=== PATIENT | male | born 1935 | race Two or more races ===

== ENCOUNTER 2021-09-22 17:40 | Inpatient (IN) | payer OTHER ==
[~2021-09-22] VITALS: Ht 175.3 cm; Wt 76.8 kg
[2021-09-22] VITALS (7 sets, daily range): BP systolic 64–140; BP diastolic 34–61
[2021-09-22] MEDS ORDERED: ATROPINE 0.5 MG/5 ML DISP.SYRINGE. IV PRN (18:00)
[2021-09-22] MEDS ORDERED: IV NORMAL SALINE 500ML BAG 500 ML IV PRN (18:00)
[2021-09-22] MEDS ORDERED: PROPOFOL 100 ML IV PRN ×2 (18:00→18:15)
[2021-09-22] MEDS ORDERED: LIDOCAINE 2%/EPI 1:100,000 20 ML VIAL. IJ ONE (18:15)
[2021-09-22] MEDS ORDERED: ceFAZolin SODIUM IV Push 1 GM VIAL. IVP ONE ×2 (18:15→18:53)
[2021-09-22] MEDS ORDERED: MIDAZOLAM HCL/PF 2 MG/2 ML VIAL. IV ONE (18:15)
[2021-09-22] MEDS ORDERED: ONDANSETRON PF 4 MG/2 ML VIAL. IVP PRN (18:45)
[2021-09-22] MEDS ORDERED: PROMETHAZINE 12.5 MG SUPP.RECT. PR PRN (18:45)
[2021-09-22] MEDS ORDERED: BISACODYL 10 MG SUPP.RECT. PR PRN (18:45)
[2021-09-22] MEDS ORDERED: MIDAZOLAM HCL/PF 2 MG/2 ML VIAL. ONE (18:53)
[2021-09-22] MEDS ORDERED: LIDOCAINE 2%/EPI 1:100,000 20 ML VIAL. ONE (18:53)
--- NOTE | 2021-09-22 18:59 | PDOC1 ---
History and Physical Date of Admission Date of Admission DATE: 09/22/21 TIME: 18:43 Identification/Chief Complaint Chief Complaint Respiratory arrest Source Source: Caregiver, Chart review History of Present Illness History of Present Illness Mr Cerda is an 86-year-old male with PMHx HTN, HLD s/p PPM who presented to [facility] in [place] via EMS after a PEA cardiac arrest. Per his son, he was at home and in the presence of son and son-in-law when he was observed actively choking and subsequently falling on the floor with significant amount of emesis that was nonbloody and nonbilious in nature. Son reports vomit with recently ingested food and laying his father on his side and cleaning out his mouth while son-in-law called EMS. On EMS arrival ~3 minutes later, patient was unresponsive and cyanotic and they intubated. En-route patient was found to be pulseless in PEA and appropriate ACLS measures were followed with application of Howard device for chest compressions, and per report had a total of x2 epinephrine administered via left tibial IO. After approximately 5 minutes ROSC was obtained. In ED was noted unresponsive with pinpoint pupils and GCS 3 with no purposeful movements. Per EMS report and son the patient takes Plavix, lisinopril, rosuvastatin and citalopram at home. He has a pacemaker per son, which was placed in [place] over 10 years ago, and the son says he follows at [facility], doesn't know about pacer follow up. Per son he fell 4 days prior and [facility]. Family notes he has been more weak than usual over past 72 hours, no travel or sick contacts. Is fully vaccinated against COVID 19. EKG appeared with third-degree heart block at 42 bpm, left axis deviation, T wave inversion noted in lead I, III, V2-6, no STEMI Vitals obtained concerning for marked bradycardia and no respiratory effort Labs with WBC 9.1, Hb 11.4, platelets 128, ABG 7.2 7/459 on 100% FiO2, rapid COVID-19 negative, NA 137, K4.2, BUN 50, CR 2, glucose 247, lactic acid 8.6, calcium 8.6, bilirubin 0.6, AST 131, ALT 157, alkaline phosphatase 90, ammonia 25, albumin 3, troponin 0.134, INR 1.1, urinalysis bland. CT head and neck with no acute abnormalities. CT chest with bibasilar infiltrates and NGT and ETT in good positioning. instrumental teacher concerning for third-degree heart block, with rate in the 20s, therefore 1 mg epinephrine administered with minimal improvement in HR, then 1 mg atropine without significant improvement, then dopamine gtt without sustained improvement. 3 L IV fluid administered and unasyn for aspiration pneumonitis. Ultimately was responsive to transcutaneous pacing and after discussion with cardiology he was transferred to [facility] for further care. To labor relations supervisor prior to my assessment, had pacemaker generator replaced emergently. Seen in ICU. Discussed with son bedside. Past Medical History Cardiovascular: HTN, Hyperlipidemia Past Surgical History Past Surgical History: Pacemaker Family History Family History reviewed with family Family History: Family History Unknown Social History Smoke: No ALCOHOL: none Drugs: None Current Medications Current Medications Current Medications Fentanyl Citrate 30 ml @ 2.5 mls/hr CONT PRN IV SEE PROTOCOL; Start 09/22/21 at 18:00 Midazolam HCl 100 ml @ 1 mls/hr CONT PRN IV SEE PROTOCOL; Start 09/22/21 at 18:00 Propofol 100 ml @ 2.244 mls/ hr CONT PRN IV PER PROTOCOL Last administered on 09/22/21at 17:39; Start 09/22/21 at 18:00 Sodium Chloride 500 ml @ 500 mls/hr 1X PRN PRN IV SEE COMMENTS; Start 09/22/21 at 18:00 Atropine Sulfate (ATROPINE 0.5mg SYRINGE) 0.5 mg PRN Q5MIN PRN IV SEE COMMENTS; Start 09/22/21 at 18:00 Famotidine (Pepcid Vial) 20 mg BID IVP ; Start 09/22/21 at 21:00 Midazolam HCl (Versed) 2 mg 1X ONCE IV Last administered on 09/22/21at 18:15; Start 09/22/21 at 18:15; Stop 09/22/21 at 18:16; Status DC Lidocaine/ Epinephrine (LIDOCAINE 2%-EPI 1:100,000 multi-dose) 20 ml 1X ONCE IJ Last administered on 09/22/21at 18:17; Start 09/22/21 at 18:15; Stop 09/22/21 at 18:16; Status DC Cefazolin Sodium (Ancef) 1 gm 1X ONCE IVP Last administered on 09/22/21at 18:15; Start 09/22/21 at 18:15; Stop 09/22/21 at 18:16; Status DC Propofol 100 ml @ 2.244 mls/ hr CONT PRN IV PER PROTOCOL; Start 09/22/21 at 18:15; Status UNV Ondansetron HCl (Zofran) 4 mg PRN Q4HRS PRN IVP NAUSEA/VOMITING; Start 09/22/21 at 18:45 Acetaminophen (Tylenol Supp) 650 mg PRN Q6HRS PRN NV MILD PAIN / TEMP > 100.3'F; Start 09/22/21 at 18:45 Bisacodyl (Dulcolax Supp) 10 mg PRN DAILY PRN NV CONSTIPATION; Start 09/22/21 at 18:45 Promethazine HCl (Phenergan Supp) 12.5 mg PRN Q6HRS PRN NV NAUSEA/VOMITING; Start 09/22/21 at 18:45 Allergies Allergies: Coded Allergies: aspirin (Verified Allergy, Intermediate, 09/22/21) ROS Review of System Unable to obtain due to patient unresponsive on ventilator Physical Exam Physical Exam Pupils 2 mm bilaterally and pinpoint with no reaction to light No gag reflex or reaction to painful stimuli Downgoing toes bilaterally HEENT: Mucous membr. moist/pink, Other (ETT and OGT in place, pupils pinpoint, occipital scalp bruising) Lungs: Other (Bilateral crackles) Heart: S1S2, no thrills, no rubs Abdomen: Normal bowel sounds, Soft, No tenderness, No hepatosplenomegaly, No masses Rectal Exam: hemorrhoids Extremities: No clubbing, No cyanosis, No edema, Normal pulses, No tenderness/swelling Skin: No rashes, No breakdown, No significant lesion Neuro: Other (Pupils 2 mm bilaterally and pinpoint with no reaction to light, GCS 3) Psych/Mental Status: Other (Unresponsive) Vitals Vitals Vital Signs Date Time Temp Pulse Resp B/P (MAP) Pulse Ox O2 Delivery O2 Flow Rate FiO2 09/22/21 17:[address] HEAD AND C-SPINE WO, CT THORAX WO The ventricles and sulci are prominent consistent with cerebral volume loss. Patchy ill-defined low attenuation areas in the subcortical and periventricular white matter bilaterally are consistent with microvascular disease. There is no evidence of acute intracranial hemorrhage, extra-axial collection, mass eff ect, midline shift, or acute territorial infarct. No lesion of the skull base or the calvarium is seen. The visualized paranasal sinuses, mastoid air cells, and orbits are normal in appearance. IMPRESSION: No evidence for acute intracranial abnormality. Volume loss and microvascular disease. CT OF THE CERVICAL SPINE WITHOUT CONTRAST Alignment is maintained without spondylolisthesis. Vertebral body heights are maintained without acute fracture. Mild multilevel degenerative changes are noted. No significant prevertebral soft tissue swelling is demonstrated. No severe osseous central canal stenosis is seen. Endotracheal and nasogastric tubes are identified. Impression: No evidence of acute cervical spine fracture or subluxation. Degenerative changes noted. Chest CT without intravenous contrast. Endotracheal tube terminates above the cristhian. Nasogastric tube terminates in the gastric antrum. There are patchy infiltrates and/or atelectasis in the lower lobes bilaterally. No appreciable pleural effusion or pneumothorax. The central airways are patent. There is no focal consolidation, pleural effusion or pneumothorax. The visualized thyroid gland is within normal limits. No lymphadenopathy is seen. The heart is enlarged without pericardial effusion. Coronary artery calcifications are noted. Aorta is normal in caliber with atherosclerotic calcifications. Degenerative changes are seen in the spine. No acute fracture. Images of the upper abdomen demonstrate gallstones and a nonobstructing left renal calculus. IMPRESSION: Bilateral lower lobe patchy infiltrates and/or atelectasis. Cardiomegaly. Coronary artery calcifications noted. VTE Prophylaxis Ordered VTE Prophylaxis Devices: No VTE Pharmacological Prophylaxi: Yes Assessment/Plan Assessment/Plan A/P: Acute hypoxic respiratory failure - likely due to aspiration pneumonia from vomiting likely from symptomatic 3rd degree heart block. Will cont vent, wean O2 as tolerated. Unasyn for aspiration pneumonia coverage. Consult pulmonology for vent management assistance PEA arrest - likely from above aspiration event, complicated by 3rd degree heart block. ROSC obtained Third degree heart block - s/p PPM generator change with apparent recovery of heart rate. Cont dopamine. ICU admission Abnormal chest CT - likely due to due to pneumonia Nausea and vomiting - likely from CHB, will treat for pneumonia, will rule out other infectious etiology. IV antiemetics Fall - second fall in a week. If neurologic recovery occurs needs gait testing, though likely this was related to cardiac event Closed head injury - posterior scalp abrasion, local wound care. Monitor neurologic function. Anemia - will check iron studies, likely of chronic disease Thrombocytopenia - unclear etiology, will trend EDWIN - likely vasomotor nephropathy from arrest. Family does not know of any history of CKD, will order [facility] records Lactic acidosis - likely due to hypoxia, will trend Transaminitis - likely related to shock liver, will monitor Elevated troponin - demand ischemia from 3rd degree heart block, likely, will trend out. HTN - will add back home meds as BP allows HLD - statin when taking PO FEN - NPO PPX - heparin, will hold tonight for closed head injury FULL CODE - discussed with son Dispo - ICU for above CC time 49 minutes Justifications for Admission Chest Pain Indications Respiratory Distress?: Yes Justification for admission: Patient's respiratory distress as indicated by (SOB/tachypnea/abnormal breathing pattern plus hypoxemia/AMS/other evidence of respiratory compromise such as pulmonary edema on chest x-ray) will need inpatient level of care. Serious Diagnosis?: Yes Justification for admission: Chest pain may be indicative of potentially serious diagnosis/diagnoses Please state condition(s) which will require inpatient level of care for further evaluation and management. Other Justification TERESA CASTRO MD Sep 22, 2021 18:59
--- NOTE | 2021-09-22 19:04 | CONS ---
DATE OF CONSULTATION: 09/22/2021 REASON FOR CONSULTATION: Complete heart block with malfunctioning pacemaker. CONSULTING PHYSICIAN: Dr. Randall and Dr. Galeana. HISTORY OF PRESENT ILLNESS: The patient is an 86-year-old man who presented to the ER after apparently being found down, choking on his food. Limited history at this time due to the patient's sedation and intubation status and unavailability of family members. Per report from the ER physicians, he was having some lightheadedness and dizziness over the last few days and ultimately today choked on his food and passed out. Upon arrival to the EMS folks, he was noted to have food in his mouth and they cleared his oropharynx and appropriately intubated him. Upon arrival to the ER at [facility], he had return of spontaneous circulation, but was noted to be in complete heart block despite having a pacemaker. His heart rates were in the 20s and it was felt that this pacemaker battery generator had probably run out. He was then emergently transferred to [facility] and was paced transcutaneously and was started on dopamine therapy with stabilized blood pressures. Upon arrival here, emergent pacemaker generator change was performed. PAST MEDICAL HISTORY: Currently unavailable, but presumably has a history of complete heart block status post dual chamber pacemaker in [place]. SOCIAL HISTORY: Currently unavailable. FAMILY HISTORY: Noncontributory. REVIEW OF SYSTEMS: Not able to be obtained as the patient is obtunded and on ventilator and sedated. ALLERGIES: Notable for aspirin. PHYSICAL EXAMINATION: VITAL SIGNS: Heart rate 69, blood pressure 86/36, pulse ox 100% on ventilator. GENERAL: He is sedated, but moving all extremities. HEAD AND NECK: Unremarkable. CARDIAC: Regular rate and rhythm without any obvious murmurs. LUNGS: Notable for decreased breath sounds at the bases. ABDOMEN: Soft, nontender, nondistended. EXTREMITIES: No clubbing, cyanosis or edema. SKIN: Multiple ecchymoses throughout his entire body. DIAGNOSTIC STUDIES: Reviewed. Troponin minimally elevated. Creatinine is elevated. Hemoglobin 11.4, platelets 128, creatinine 2.0. Troponin 0.134. INR 1.1. EKG demonstrates sinus rhythm with slow ventricular escape and complete heart block. IMPRESSION: 1. Pacemaker battery generator depletion with high-grade AV block and resultant cardiac arrest. 2. Acute kidney injury. 3. [id number] myocardial infarction, likely type 2. RECOMMENDATIONS: 1. The patient underwent successful emergent generator change in the lab manager without any complications. 2. Continue dopamine for blood pressure maintenance and obtain routine echocardiogram. 3. We will follow along closely and try to obtain further history from the family. Thank you for this consultation. XIOMARA DR: Mo TID: [id number]
--- NOTE | 2021-09-22 19:30 | NUR ---
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 Intubated with Dopamine, propofol and NS infusing. IO to left lower extremity removed. Propofol on hold for hypotension. Versed and fentanyl available and will infuse. Bejarano in place. Alicia called and advised family went home. VSS. Will titrate meds as needed and will continue to monitor.
[2021-09-22 20:46] LABS: BASE EXCESS ABG -6 mmol/L (-3-3); FIO2 ABG 100; HCO3 ABG 18 mmol/L (21-28); PCO2 ABG 30 mmHg (35-46); PO2 ABG 416 mmHg (65-108); SAT O2 ABG 99 % (92-99)
[2021-09-22] MEDS ORDERED: FAMOTIDINE 20 MG/2 ML VIAL IVP SCH (21:00)
[2021-09-22] MEDS ORDERED: fentaNYL PF VIAL 100 MCG/2 ML VIAL IVP PRN (21:30)
[2021-09-22] MEDS: AMPICILLIN/SULBACTAM 3 GM in IV NORMAL SALINE 100ML 100 ML IV SCH (21:58)
[2021-09-22] MEDS: MIDAZOLAM 100mg/100ml NS BAG 100 ML IV PRN (23:49)
[2021-09-23] VITALS (26 sets, daily range): BP systolic 67–135; BP diastolic 33–60
[2021-09-23] MEDS: AMPICILLIN/SULBACTAM 3 GM in IV NORMAL SALINE 100ML 100 ML IV SCH ×4 (00:32→17:43)
[2021-09-23] MEDS ORDERED: CHOL10004 PO (05:28)
[2021-09-23] MEDS ORDERED: AMLO-186 PO (05:28)
[2021-09-23] MEDS ORDERED: EZET10TA20 PO (05:28)
[2021-09-23] MEDS ORDERED: CARB15DR65 EACHEYE (05:28)
[2021-09-23] MEDS ORDERED: MEMA10TA PO (05:28)
[2021-09-23] MEDS ORDERED: DONE10TA7 PO (05:28)
[2021-09-23] MEDS ORDERED: CLOP75TA PO (05:28)
[2021-09-23] MEDS ORDERED: PANT40TA77 PO (05:28)
[2021-09-23] MEDS ORDERED: CRESTOR40 MG PO (05:28)
[2021-09-23] MEDS ORDERED: [UNRECOGNIZED DRUG - CODE] TP (05:28)
[2021-09-23] MEDS ORDERED: LISI-130 PO (05:28)
[2021-09-23] MEDS ORDERED: [UNRECOGNIZED DRUG - CODE] TP (05:28)
[2021-09-23] MEDS ORDERED: KETO45GE2 TP (05:28)
[2021-09-23] MEDS ORDERED: ISOS60TA55 PO (05:28)
[2021-09-23] MEDS ORDERED: LEVO50TA5 PO (05:28)
[2021-09-23] MEDS ORDERED: ATEN25TA PO (05:28)
[2021-09-23] MEDS ORDERED: CITA40TA12 PO (05:28)
[2021-09-23 05:52] LABS: BASO % 0 % (0-3); EOS % 0 % (0-3); HEMATOCRIT 32.4 % (39.0-53.0); HEMOGLOBIN 11.1 g/dL (13.0-17.5); LYMPH # 0.7 x10^3/uL (1.0-4.8); LYMPH % 7 % (24-48); MEAN CORPUSCULAR HEMOGLOBIN 32 pg (25-35); MEAN CORPUSCULAR HGB CONC 34 g/dL (31-37); MEAN CORPUSCULAR VOLUME 95 fL (79-100); MONO # 0.4 x10^3/uL (0.0-1.1); MONO % 4 % (0-9); NEUT # 8.8 x10^3/uL (1.8-7.7); NEUT % 89 % (31-73); PLATELET COUNT 126 x10^3/uL (140-400); RED BLOOD COUNT 3.43 x10^6/uL (4.30-5.70); RED CELL DISTRIBUTION WIDTH 14.8 % (11.5-14.5); WHITE BLOOD COUNT 9.9 x10^3/uL (4.0-11.0)
[2021-09-23 06:26] LABS: ALBUMIN 2.7 g/dL (3.4-5.0); ALBUMIN/GLOBULIN RATIO 0.8 (1.0-1.7); CREATININE 1.8 mg/dL (0.7-1.3); TOTAL BILIRUBIN 0.7 mg/dL (0.2-1.0)
[2021-09-23 08:11] LABS: BASE EXCESS ABG -1 mmol/L (-3-3); HCO3 ABG 19 mmol/L (21-28); PCO2 ABG 21 mmHg (35-46); PO2 ABG 172 mmHg (65-108); SAT O2 ABG 99 % (92-99)
[2021-09-23 08:14] LABS: FIO2 ABG 50% AC 26/500/5
--- NOTE | 2021-09-23 08:19 | PDOC ---
[employer] PROGRESS NOTE Date of Service DOS: DATE: 09/23/21 TIME: 08:13 Chief Complaint Chief Complaint Acute hypoxic respiratory failure - likely due to aspiration pneumonia from vomiting likely from symptomatic 3rd degree heart block. Will cont vent, wean O2 as tolerated. Unasyn for aspiration pneumonia coverage. Consult pulmonology for vent management assistance PEA arrest - likely from above aspiration event, complicated by 3rd degree heart block. ROSC obtained Third degree heart block - s/p PPM generator change with apparent recovery of heart rate. Cont dopamine. ICU admission Abnormal chest CT - likely due to due to pneumonia Nausea and vomiting - likely from CHB, will treat for pneumonia, will rule out other infectious etiology. IV antiemetics Fall - second fall in a week. If neurologic recovery occurs needs gait testing, though likely this was related to cardiac event Closed head injury - posterior scalp abrasion, local wound care. Monitor neurologic function. Anemia - will check iron studies, likely of chronic disease Thrombocytopenia - unclear etiology, will trend EDWIN - likely vasomotor nephropathy from arrest. Family does not know of any history of CKD, will order [facility] records Lactic acidosis - likely due to hypoxia, will trend Transaminitis - likely related to shock liver, will monitor Elevated troponin - demand ischemia from 3rd degree heart block, likely, will trend out. HTN - will add back home meds as BP allows HLD - statin when taking PO History of Present Illness History of Present Illness Mr Cerda is an 86-year-old male with PMHx HTN, HLD s/p PPM who presented to [place] in [place] via EMS after a PEA cardiac arrest. Per his son, he was at home and in the presence of son and son-in-law when he was observed actively choking and subsequently falling on the floor with significant amount of emesis that was nonbloody and nonbilious in nature. Son reports vomit with recently ingested food and laying his father on his side and cleaning out his mouth while son-in-law called EMS. On EMS arrival ~3 minutes later, patient was unresponsive and cyanotic and they intubated. En-route patient was found to be pulseless in PEA and appropriate ACLS measures were followed with application of Howard device for chest compressions, and per report had a total of x2 epinephrine administered via left tibial IO. After approximately 5 minutes ROSC was obtained. In ED was noted unresponsive with pinpoint pupils and GCS 3 with no purposeful movements. Per EMS report and son the patient takes Plavix, lisinopril, rosuvastatin and citalopram at home. He has a pacemaker per son, which was placed in [place] over 10 years ago, and the son says he follows at [facility], doesn't know about pacer follow up. Per son he fell 4 days prior and [facility], noted on his occiput. Family notes he has been more weak than usual over past 72 hours, no travel or sick contacts. Is fully vaccinated against COVID 19. EKG appeared with third-degree heart block at 42 bpm, left axis deviation, T wave inversion noted in lead I, III, V2-6, no STEMI Vitals obtained concerning for marked bradycardia and no respiratory effort Labs with WBC 9.1, Hb 11.4, platelets 128, ABG 7.2 /459 on 100% FiO2, rapid COVID-19 negative, NA 137, K4.2, BUN 50, CR 2, glucose 247, lactic acid 8.6, calcium 8.6, bilirubin 0.6, AST 131, ALT 157, alkaline phosphatase 90, ammonia 25, albumin 3, troponin 0.134, INR 1.1, urinalysis bland. CT head and neck with no acute abnormalities. CT chest with bibasilar infiltrates and NGT and ETT in good positioning. secured entrance monitor concerning for third-degree heart block, with rate in the 20s, therefore 1 mg epinephrine administered with minimal improvement in HR, then 1 mg atropine without significant improvement, then dopamine gtt without sustained improvement. 3 L IV fluid administered and unasyn for aspiration pneumonitis. Ultimately was responsive to transcutaneous pacing and after discussion with cardiology he was transferred to [facility] for further care. To ammunition assembly laborer prior to my assessment, had pacemaker generator replaced emergently. Seen in ICU. Discussed with son bedside. 09/23: Afebrile, on vent with FiO2 50%, PEEP 5. Continue dopamine gtt. We will continue Unasyn for aspiration pneumonia. Chest x-ray showed suspected partially consolidated left lower lobe infiltrate superimposed on right lower and bilateral upper lobe multifocal interstitial infiltrate.. Critical care time 30 minutes spent reviewing charts, general labs, reviewing imaging, and discussion with RN. Vitals/I&O Vitals/I&O: Vital Signs Date Time Temp Pulse Resp B/P (MAP) Pulse Ox O2 Delivery O2 Flow Rate FiO2 09/23/21 07:34 26 100 Ventilator 09/23/21 07:00 69 96/45 (62) 09/23/21 04:00 99.1 99.1 I & O 09/22/21 09/22/21 09/23/21 15:00 23:00 07:00 Intake Total 130 ml 628.2 ml Balance 130 ml 628.2 ml Physical Exam General: No acute distress, Other (Intubated and sedated) Heart: Regular rate Lungs: Crackles Abdomen: Normal bowel sounds, Soft, No tenderness, No hepatosplenomegaly, No masses Extremities: No clubbing, No cyanosis, No edema, Normal pulses, No tenderness/swelling Skin: No rashes, No breakdown, No significant lesion Labs Labs: Laboratory Tests Test 09/22/21 20:07 09/23/21 00:45 09/23/21 05:45 O2 Saturation 99 % (92-99) Arterial Blood pH 7.40 (7.35-7.45) Arterial Blood pCO2 at Patient Temp 30 mmHg (35-46) Arterial Blood pO2 at Patient Temp 416 mmHg (65-108) Arterial Blood HCO3 18 mmol/L (21-28) Arterial Blood Base Excess -6 mmol/L (-3-3) FiO2 100 Troponin I Quantitative 0.786 ng/mL (0.000-0.055) 0.842 ng/mL (0.000-0.055) White Blood Count 9.9 x10^3/uL (4.0-11.0) Red Blood Count 3.43 x10^6/uL (4.30-5.70) Hemoglobin 11.1 g/dL (13.0-17.5) Hematocrit 32.4 % (39.0-53.0) Mean Corpuscular Volume 95 fL (79-100) Mean Corpuscular Hemoglobin 32 pg (25-35) Mean Corpuscular Hemoglobin Concent 34 g/dL (31-37) Red Cell Distribution Width 14.8 % (11.5-14.5) Platelet Count 126 x10^3/uL (140-400) Neutrophils (%) (Auto) 89 % (31-73) Lymphocytes (%) (Auto) 7 % (24-48) Monocytes (%) (Auto) 4 % (0-9) Eosinophils (%) (Auto) 0 % (0-3) Basophils (%) (Auto) 0 % (0-3) Neutrophils # (Auto) 8.8 x10^3/uL (1.8-7.7) Lymphocytes # (Auto) 0.7 x10^3/uL (1.0-4.8) Monocytes # (Auto) 0.4 x10^3/uL (0.0-1.1) Eosinophils # (Auto) 0.0 x10^3/uL (0.0-0.7) Basophils # (Auto) 0.0 x10^3/uL (0.0-0.2) Sodium Level 137 mmol/L (136-145) Potassium Level 5.0 mmol/L (3.5-5.1) Chloride Level 103 mmol/L (98-107) Carbon Dioxide Level 21 mmol/L (21-32) Anion Gap 13 (6-14) Blood Urea Nitrogen 56 mg/dL (8-26) Creatinine 1.8 mg/dL (0.7-1.3) Estimated GFR (Cockcroft-Gault) 36.0 BUN/Creatinine Ratio 31 (6-20) Glucose Level 152 mg/dL (70-99) Lactic Acid Level 2.5 mmol/L (0.4-2.0) Calcium Level 8.0 mg/dL (8.5-10.1) Total Bilirubin 0.7 mg/dL (0.2-1.0) Aspartate Amino Transf (AST/SGOT) 127 U/L (15-37) Alanine Aminotransferase (ALT/SGPT) 153 U/L (16-63) Alkaline Phosphatase 77 U/L (46-116) Total Protein 6.0 g/dL (6.4-8.2) Albumin 2.7 g/dL (3.4-5.0) Albumin/Globulin Ratio 0.8 (1.0-1.7) Comment Review of Relevant I have reviewed the following items ivania (where applicable) has been applied. Medications: Current Medications Medications (Trade) Dose Ordered Sig/Subha Route PRN Reason Start Time Stop Time Status Last Admin Dose Admin Fentanyl Citrate 30 ml @ 2.5 mls/hr CONT PRN IV SEE PROTOCOL 09/22/21 18:00 09/23/21 07:34 Midazolam HCl 100 ml @ 1 mls/hr CONT PRN IV SEE PROTOCOL 09/22/21 18:00 09/22/21 23:49 Propofol 100 ml @ 2.244 mls/ hr CONT PRN IV PER PROTOCOL 09/22/21 18:00 09/22/21 17:39 Famotidine (Pepcid Vial) 20 mg BID IVP 09/22/21 21:00 09/22/21 21:58 Midazolam HCl (Versed) 2 mg 1X ONCE IV 09/22/21 18:15 09/22/21 18:16 DC 09/22/21 18:15 Lidocaine/ Epinephrine (LIDOCAINE 2%-EPI 1:100,000 multi-dose) 20 ml 1X ONCE IJ 09/22/21 18:15 09/22/21 18:16 DC 09/22/21 18:17 Cefazolin Sodium (Ancef) 1 gm 1X ONCE IVP 09/22/21 18:15 09/22/21 18:16 DC 09/22/21 18:15 Ampicillin Sodium/ Sulbactam Sodium 3 gm/Sodium Chloride 100 ml @ 200 mls/hr Q6HRS IV 09/22/21 18:45 09/23/21 06:01 Dopamine HCl/ Dextrose 250 ml @ 28.05 mls/ hr CONT PRN IV SEE I/O RECORD 09/22/21 18:45 09/22/21 22:32 Justifications for Admission Chest Pain Indications Respiratory Distress?: Yes Justification for admission: Patient's respiratory distress as indicated by (SOB/tachypnea/abnormal breathing pattern plus hypoxemia/AMS/other evidence of respiratory compromise such as pulmonary edema on chest x-ray) will need inpatient level of care. Serious Diagnosis?: Yes Justification for admission: Chest pain may be indicative of potentially serious diagnosis/diagnoses Please state condition(s) which will require inpatient level of care for further evaluation and management. Other Justification DALLAS CISNEROS MD Sep 23, 2021 08:19
--- NOTE | 2021-09-23 08:24 | PDOC ---
PULMONARY PROGRESS NOTES DATE: 09/23/21 TIME: 08:23 Vitals Vital Signs Date Time Temp Pulse Resp B/P (MAP) Pulse Ox O2 Delivery O2 Flow Rate FiO2 09/23/21 08:03 100 Ventilator 09/23/21 07:34 26 09/23/21 07:00 69 96/45 (62) 09/23/21 04:00 99.1 99.1 Lungs: Crackles Labs Laboratory Tests Test 09/22/21 20:07 09/23/21 00:45 09/23/21 05:45 09/23/21 08:05 O2 Saturation 99 % (92-99) 99 % (92-99) Arterial Blood pH 7.40 (7.35-7.45) 7.58 (7.35-7.45) Arterial Blood pCO2 at Patient Temp 30 mmHg (35-46) 21 mmHg (35-46) Arterial Blood pO2 at Patient Temp 416 mmHg (65-108) 172 mmHg (65-108) Arterial Blood HCO3 18 mmol/L (21-28) 19 mmol/L (21-28) Arterial Blood Base Excess -6 mmol/L (-3-3) -1 mmol/L (-3-3) FiO2 100 50% ac 26/500/5 Troponin I Quantitative 0.786 ng/mL (0.000-0.055) 0.842 ng/mL (0.000-0.055) White Blood Count 9.9 x10^3/uL (4.0-11.0) Red Blood Count 3.43 x10^6/uL (4.30-5.70) Hemoglobin 11.1 g/dL (13.0-17.5) Hematocrit 32.4 % (39.0-53.0) Mean Corpuscular Volume 95 fL (79-100) Mean Corpuscular Hemoglobin 32 pg (25-35) Mean Corpuscular Hemoglobin Concent 34 g/dL (31-37) Red Cell Distribution Width 14.8 % (11.5-14.5) Platelet Count 126 x10^3/uL (140-400) Neutrophils (%) (Auto) 89 % (31-73) Lymphocytes (%) (Auto) 7 % (24-48) Monocytes (%) (Auto) 4 % (0-9) Eosinophils (%) (Auto) 0 % (0-3) Basophils (%) (Auto) 0 % (0-3) Neutrophils # (Auto) 8.8 x10^3/uL (1.8-7.7) Lymphocytes # (Auto) 0.7 x10^3/uL (1.0-4.8) Monocytes # (Auto) 0.4 x10^3/uL (0.0-1.1) Eosinophils # (Auto) 0.0 x10^3/uL (0.0-0.7) Basophils # (Auto) 0.0 x10^3/uL (0.0-0.2) Sodium Level 137 mmol/L (136-145) Potassium Level 5.0 mmol/L (3.5-5.1) Chloride Level 103 mmol/L (98-107) Carbon Dioxide Level 21 mmol/L (21-32) Anion Gap 13 (6-14) Blood Urea Nitrogen 56 mg/dL (8-26) Creatinine 1.8 mg/dL (0.7-1.3) Estimated GFR (Cockcroft-Gault) 36.0 BUN/Creatinine Ratio 31 (6-20) Glucose Level 152 mg/dL (70-99) Lactic Acid Level 2.5 mmol/L (0.4-2.0) Calcium Level 8.0 mg/dL (8.5-10.1) Total Bilirubin 0.7 mg/dL (0.2-1.0) Aspartate Amino Transf (AST/SGOT) 127 U/L (15-37) Alanine Aminotransferase (ALT/SGPT) 153 U/L (16-63) Alkaline Phosphatase 77 U/L (46-116) Total Protein 6.0 g/dL (6.4-8.2) Albumin 2.7 g/dL (3.4-5.0) Albumin/Globulin Ratio 0.8 (1.0-1.7) Laboratory Tests Test 09/22/21 20:07 09/23/21 00:45 09/23/21 05:45 09/23/21 08:05 O2 Saturation 99 % (92-99) 99 % (92-99) Arterial Blood pH 7.40 (7.35-7.45) 7.58 (7.35-7.45) Arterial Blood pCO2 at Patient Temp 30 mmHg (35-46) 21 mmHg (35-46) Arterial Blood pO2 at Patient Temp 416 mmHg (65-108) 172 mmHg (65-108) Arterial Blood HCO3 18 mmol/L (21-28) 19 mmol/L (21-28) Arterial Blood Base Excess -6 mmol/L (-3-3) -1 mmol/L (-3-3) FiO2 100 50% ac 26/500/5 Troponin I Quantitative 0.786 ng/mL (0.000-0.055) 0.842 ng/mL (0.000-0.055) White Blood Count 9.9 x10^3/uL (4.0-11.0) Red Blood Count 3.43 x10^6/uL (4.30-5.70) Hemoglobin 11.1 g/dL (13.0-17.5) Hematocrit 32.4 % (39.0-53.0) Mean Corpuscular Volume 95 fL (79-100) Mean Corpuscular Hemoglobin 32 pg (25-35) Mean Corpuscular Hemoglobin Concent 34 g/dL (31-37) Red Cell Distribution Width 14.8 % (11.5-14.5) Platelet Count 126 x10^3/uL (140-400) Neutrophils (%) (Auto) 89 % (31-73) Lymphocytes (%) (Auto) 7 % (24-48) Monocytes (%) (Auto) 4 % (0-9) Eosinophils (%) (Auto) 0 % (0-3) Basophils (%) (Auto) 0 % (0-3) Neutrophils # (Auto) 8.8 x10^3/uL (1.8-7.7) Lymphocytes # (Auto) 0.7 x10^3/uL (1.0-4.8) Monocytes # (Auto) 0.4 x10^3/uL (0.0-1.1) Eosinophils # (Auto) 0.0 x10^3/uL (0.0-0.7) Basophils # (Auto) 0.0 x10^3/uL (0.0-0.2) Sodium Level 137 mmol/L (136-145) Potassium Level 5.0 mmol/L (3.5-5.1) Chloride Level 103 mmol/L (98-107) Carbon Dioxide Level 21 mmol/L (21-32) Anion Gap 13 (6-14) Blood Urea Nitrogen 56 mg/dL (8-26) Creatinine 1.8 mg/dL (0.7-1.3) Estimated GFR (Cockcroft-Gault) 36.0 BUN/Creatinine Ratio 31 (6-20) Glucose Level 152 mg/dL (70-99) Lactic Acid Level 2.5 mmol/L (0.4-2.0) Calcium Level 8.0 mg/dL (8.5-10.1) Total Bilirubin 0.7 mg/dL (0.2-1.0) Aspartate Amino Transf (AST/SGOT) 127 U/L (15-37) Alanine Aminotransferase (ALT/SGPT) 153 U/L (16-63) Alkaline Phosphatase 77 U/L (46-116) Total Protein 6.0 g/dL (6.4-8.2) Albumin 2.7 g/dL (3.4-5.0) Albumin/Globulin Ratio 0.8 (1.0-1.7) Medications Active Scripts Medications Dose Route/Sig Max Daily Dose Days Date Category Dose Instructions Urea 227 Gm Cream..g. 1 Tata TP DAILY 30 09/23/21 Reported Crestor (Rosuvastatin Calcium) 40 Mg Tablet 1 Tab PO DAILY 09/23/21 Reported Namenda (Memantine Hcl) 10 Mg Tablet 1 Tab PO BID 09/23/21 Reported Pantoprazole Sodium (Pantoprazole Sodium) 40 Mg Tablet.dr 40 Mg PO DAILYAC 09/23/21 Reported Lisinopril 40 Mg Tablet 0.5 Tab PO DAILY 09/23/21 Reported Levothyroxine Sodium 50 Mcg Tablet 1 Tab PO DAILY 09/23/21 Reported Xolegel (Ketoconazole) 45 Gm Gel..gram. 1 Tata TP BID 30 09/23/21 Reported Isosorbide Mononitrate Er (Isosorbide Mononitrate) 60 Mg Tab.er.24h 1 Tab PO DAILY 09/23/21 Reported Hydrophor Ointment (Mineral Oil/Hydrophil Petrolat) 454 Gm Oint...g. 454 Gm TP PRN PRN 09/23/21 Reported Zetia (Ezetimibe) 10 Mg Tablet 1 Tab PO DAILY 30 09/23/21 Reported Donepezil Hcl 10 Mg Tablet 1 Tab PO DAILY 09/23/21 Reported Clopidogrel (Clopidogrel Bisulfate) 75 Mg Tablet 75 Mg PO DAILY 09/23/21 Reported Celexa (Citalopram Hydrobromide) 40 Mg Tablet 1 Tab PO DAILY 09/23/21 Reported Vitamin D3 (Vitamin D) 25 Mcg Tablet 25 Mcg PO DAILY 09/23/21 Reported 1,000 UNITS = 25 MCG Thera Tears (Carboxymethylcellulose Sodium) 15 Ml Drops 1 Drop EACHEYE QID 09/23/21 Reported Atenolol 25 Mg Tablet 1 Tab PO DAILY 09/23/21 Reported Amlodipine Besylate 5 Mg Tablet 5 Mg PO DAILY 09/23/[address] MERCEDES MD Sep 23, 2021 08:24
[2021-09-23] MEDS: FAMOTIDINE 20 MG/2 ML VIAL IVP SCH (08:42)
[2021-09-23] MEDS: MIDAZOLAM 100mg/100ml NS BAG 100 ML IV PRN (08:46)
--- NOTE | 2021-09-23 09:03 | RAD ---
EXAM: Chest, single view. HISTORY: Hypoxia. COMPARISON: 09/22/2021. FINDINGS: A frontal view of the chest is obtained. There is suspected partially consolidated left low er lobe infiltrate. There is right lower lobe and bilateral upper lobe interstitial infiltrate. There is emphysema. There is a prominent cardiac silhouette and evidence of prior CABG. There is no pleura l effusion or pneumothorax. There is an endotracheal tube within the mid trachea. There is a cardiac pacemaker with leads in expected position. There is a nasogastric tube within the stomach. IMPRESSION: 1. Suspected partially consolidated left lower lobe infiltrate superimposed on right lower and bilate ral upper lobe multifocal interstitial infiltrate. 2. Support lines and tubes, described above. Electronically signed by: Naty Noyola MD (09/23/2021 9:01 AM) [id number]
--- NOTE | 2021-09-23 09:10 | NUR ---
SS following for discharge planning. SS reviewed pt chart and discussed with pt RN. Pt is from home with spouse and is currently on the vent at 40%. Post code. Pt had pacemaker battery replaced. Pt on IV Ampicillin, Dopamine, Fentanyl, and Versed. SS will continue to follow for discharge planning.
[2021-09-23] MEDS: NOREPINEPHRINE VIAL 8 MG in IV DEXTROSE 5% 250 ML IV PRN ×2 (12:03→22:14)
--- NOTE | 2021-09-23 12:52 | CONS ---
DATE OF CONSULTATION: 09/23/2021 ATTENDING PHYSICIAN: Osiel Vargas MD REASON FOR CONSULTATION: The patient is seen in pulmonary consultation at the request of Dr. Vargas for acute respiratory failure requiring mechanical ventilation. HISTORY OF PRESENT ILLNESS: The patient is an 86-year-old that presented to [facility] Emergency Room after being found down, possibly choking on his food. Per report from the emergency room physician, he had lightheadedness, dizziness over the last several days. Upon EMS arrival to his home, he was found to have food in his mouth and they cleared it. His oropharynx was visualized and intubated. He was transferred to the Emergency Department at [facility], had spontaneous return of circulation. They also noted complete heart block. He was transferred to [facility]. He is currently on assist control ventilation. He was seen by Cardiology. The pacemaker battery generator had been depleted. He had a high-grade AV block with resultant cardiac arrest. There was also non-ST segment elevation KS. He is currently receiving pressors. He is hypotensive. He is receiving IV fluids. He had chest x-ray revealing left lower lobe and right upper lobe infiltrate. He had a CT chest revealing bilateral infiltrates. PAST MEDICAL HISTORY: Remarkable for suspect underlying coronary artery disease. He has a pacemaker implanted; apparently, this was done in [place]. There is a history of hypertension, hyperlipidemia. PAST SURGICAL HISTORY: Pacemaker. ALLERGIES: LISTED TO ASPIRIN, CHOLESTYRAMINE AND HYDROCHLOROTHIAZIDE. FAMILY HISTORY: Unknown if he smokes. REVIEW OF SYSTEMS: Unobtainable secondary to the patient's condition. PHYSICAL EXAMINATION: GENERAL: The patient was in the intensive care unit. VITAL SIGNS: Stable. O2 saturation was greater than 92% on assist control ventilation. HEENT: Eyes: The sclerae were nonicteric. Orally placed endotracheal tube. LUNGS: Bilateral rhonchi. No wheezes. CARDIOVASCULAR: Regular rate and rhythm with S1, S2. No S3. ABDOMEN: Soft. EXTREMITIES: No clubbing, cyanosis. Minimal edema. NEUROLOGIC: The patient was sedated on mechanical ventilation. LABORATORY DATA: White count was normal. Arterial blood gas earlier this morning 7.58, PaCO2 of 21, pO2 of 172. Since then, his minute ventilation has been adjusted. Electrolytes were noted. BUN was elevated, creatinine was elevated. Troponin was elevated. AST and ALT were elevated. IMPRESSION: 1. Acute hypoxemic respiratory failure secondary to complete heart block. 2. 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 3. Acute kidney injury. 4. Elevated liver chemistries. 5. Non-ST segment elevation myocardial infarction. 6. Severe protein malnutrition, present upon admission. 7. Respiratory alkalosis. PLAN: 1. Adjust minute ventilation to normalize pH. 2. Continue pressors for support. 3. Once the patient hemodynamically is stable, we will proceed with spontaneous trial and possibly extubate. 4. Cover bilateral pulmonary infiltrates with possible aspiration with ampicillin. 5. Continue sedation. 6. DVT and GI prophylaxis. I do appreciate the privilege in sharing in the patient's care. OSKAR DR: Lloyd TID: [id number]
--- NOTE | 2021-09-23 14:21 | CARD ---
MR#: [id number] Date of Study: 09/23/2021 Ordering Physician: DENIS CHEUNG, Referring Physician: DENIS CHEUNG, Tech: Ambar Sewell [facility] APPROVED REPORT EXAM: Two-dimensional and M-mode echocardiogram with Doppler and color Doppler. Other Information Quality : Technically LimitedHR: 70bpm Rhythm : NSRTechnically limited study due to body habitus. INDICATION RISK FACTORS Hypertension 2D DIMENSIONS RVDd3.5 (2.9-3.5cm)Left Atrium(2D)2.9 (1.6-4.0cm) IVSd1.5 (0.7-1.1cm)Aortic Root(2D)3.3 (2.0-3.7cm) LVDd3.6 (3.9-5.9cm)LVOT Diameter1.7 (1.8-2.4cm) PWd1.3 (0.7-1.1cm)LVDs2.8 (2.5-4.0cm) FS (%) 22.3 %SV24.4 ml LVEF(%)45.8 (>50%) Aortic Valve AoV Peak Ervin.98.1cm/Lei Peak GR.3.8mmHg Tricuspid Valve TR P. [id number]/sTR Peak Gr.21mmHg LEFT VENTRICLE The left ventricle is normal size. There is mild concentric left ventricular hypertrophy. The left ve ntricular systolic function is mildly decreased. EF 45% Septal motion suggestive of prior infarct and conduction defect. Otherwise, mild global hypokinesis. Tissue Doppler imaging reveals moderate left ventricular diastolic dysfunction. No left ventricle thrombus noted on this study. RIGHT VENTRICLE The right ventricle is normal size. There is normal right ventricular wall thickness. The right ventr icular systolic function is normal. There is a pacing lead noted in the RA/RV. ATRIA The left atrium size is normal. The right atrium size is normal. The interatrial septum is intact wit h no evidence for an atrial septal defect or patent foramen ovale as noted on 2-D or Doppler imaging. AORTIC VALVE The aortic valve is moderately calcified. Grossly appears trileaflet with restricted leaflet motion. Doppler and Color Flow revealed no significant aortic regurgitation. There is no significant aortic v alvular stenosis. MITRAL VALVE The mitral valve is normal in structure and function. There is no evidence of mitral valve prolapse. There is no mitral valve stenosis. Doppler and Color Flow revealed no mitral valve regurgitation note d. TRICUSPID VALVE The tricuspid valve is normal in structure and function. Doppler and Color Flow revealed mild tricusp id regurgitation. Estimated PAP 31-35 mmHg. There is no tricuspid valve stenosis. PULMONIC VALVE Not visualized. GREAT VESSELS The aortic root is normal in size. The ascending aorta is normal in size. The IVC is dilated and phuong apses <50% with inspiration. PERICARDIAL EFFUSION There is no evidence of significant pericardial effusion. Critical Notification Critical Value: No <Conclusion> The left ventricular systolic function is mildly decreased. EF 45% Septal motion suggestive of prior infarct and conduction defect. Otherwise, mild global hypokinesis. There is a pacing lead noted in the RA/RV. Doppler and Color Flow revealed mild tricuspid regurgitation. Estimated PAP 31-35 mmHg. Signed by : Denis Cheung, Electronically Approved : 09/23/2021 14:21:18
--- NOTE | 2021-09-23 14:35 | CARD ---
MR#: [id number] Date of Study: 09/22/2021 Ordering Physician: DENIS CHEUNG, Referring Physician: DENIS CHEUNG, Tech: APPROVED REPORT HISTORY The Patient is a 86 year-old male with a history of Complete heart block status post dual-chamber pac emaker PROCEDURES NO MODERATE SEDATION GIVEN FLUORO TIME: 0.0 MIN DOSE: 0.1 GYCM2 Pacemaker battery generator change, dual-chamber -emergent due to cardiac arrest and temporary need f or transcutaneous pacing INDICATIONS Pacemaker battery depletion and complete heart block with cardiac arrest CONSCIOUS SEDATION AGENTS Clinical information: 86-year-old male who apparently was found down at home while he was eating and choked on his food and upon arrival to the ER it was noted that his pacemaker was malfunctioning. Essentially the patient had a pacemaker placed approximately 10 years ago and according to family never had it checked and it appears that the battery was depleted and this likely resulted in his cardiac arrest. IMPLANTED DEVICES Due to emergent nature of the procedure verbal informed consent was obtained. Next the right chest w as prepped and draped in usual sterile fashion. Under 1% lidocaine local anesthesia a incision was m anahi overlying the previous pacemaker battery. Using blunt dissection and cautery the previous batter y and wires were mobilized and a new [employer] pacemaker generator model number [id number] DR 01 was implante d. Serial number RN [id number]. This was attached to the previous leads with serial number BB [id number] in the atrium and [id number] in the ventricle. Thresholds were less than 1 in the atrium and the ventricle with P wave of 3.8 and ventricular waves unable to be measured due to pacing. At case comp letion the incision was then closed in 3 layers. All instrument counts were correct. Final mode DDDR, 70-130 CONCLUSION 1. Successful dual-chamber pacemaker generator change for battery depletion and resultant cardiac ar rest. 2. This was a complex case due to the patient's cardiac arrest and requiring emergent generator mckeon ge. Signed by : Denis Cheung, Electronically Approved : 09/23/2021 14:35:16
[2021-09-23] MEDS ORDERED: HEPARIN for SUB-Q USE 5,000 UNIT/ML VIAL. SQ SCH (21:00)
--- NOTE | 2021-09-23 22:59 | PDOC ---
CARDIOLOGY PROGRESS NOTE SUBJECTIVE: No new events overnight. Patient is sedated and intubated. Echo reviewed. On vasopressor therapy OBJECTIVE: Vital Signs/I&O: Vital Signs Date Time Temp Pulse Resp B/P (MAP) Pulse Ox O2 Delivery O2 Flow Rate FiO2 09/23/21 22:00 71 18 135/55 100 09/23/21 20:45 Ventilator 09/23/21 20:00 98.5 98.5 I & O 09/22/21 09/22/21 09/23/21 15:00 23:00 07:00 Intake Total 130 ml 628.2 ml Balance 130 ml 628.2 ml Objective: GEN.: No apparent distress. HEENT: Head is normocephalic, atraumatic NECK: Supple. LUNGS: Clear to auscultation. HEART: RRR, S1, S2 present. Peripheral pulses intact ABDOMEN: Soft, nontender. Positive bowel sounds. EXTREMITIES: Without any cyanosis. NEUROLOGIC: Responds to painful stimuli PSYCHIATRIC: Sedated SKIN: No ulcerations, multiple ecchymosis. CURRENT MEDICATIONS: Meds reviewed DIAGNOSTIC TESTING: Labs reviewed. CXR reviewed Labs: Laboratory Tests 09/23/21 05:45 Laboratory Tests Test 09/23/21 05:45 09/23/21 08:05 09/23/21 09:05 White Blood Count 9.9 x10^3/uL (4.0-11.0) Red Blood Count 3.43 x10^6/uL (4.30-5.70) L Hemoglobin 11.1 g/dL (13.0-17.5) L Hematocrit 32.4 % (39.0-53.0) L Mean Corpuscular Volume 95 fL (79-100) Mean Corpuscular Hemoglobin 32 pg (25-35) Mean Corpuscular Hemoglobin Concent 34 g/dL (31-37) Red Cell Distribution Width 14.8 % (11.5-14.5) H Platelet Count 126 x10^3/uL (140-400) L Neutrophils (%) (Auto) 89 % (31-73) H Lymphocytes (%) (Auto) 7 % (24-48) L Monocytes (%) (Auto) 4 % (0-9) Eosinophils (%) (Auto) 0 % (0-3) Basophils (%) (Auto) 0 % (0-3) Neutrophils # (Auto) 8.8 x10^3/uL (1.8-7.7) H Lymphocytes # (Auto) 0.7 x10^3/uL (1.0-4.8) L Monocytes # (Auto) 0.4 x10^3/uL (0.0-1.1) Eosinophils # (Auto) 0.0 x10^3/uL (0.0-0.7) Basophils # (Auto) 0.0 x10^3/uL (0.0-0.2) Sodium Level 137 mmol/L (136-145) Potassium Level 5.0 mmol/L (3.5-5.1) Chloride Level 103 mmol/L (98-107) Carbon Dioxide Level 21 mmol/L (21-32) Anion Gap 13 (6-14) Blood Urea Nitrogen 56 mg/dL (8-26) H Creatinine 1.8 mg/dL (0.7-1.3) H Estimated GFR (Cockcroft-Gault) 36.0 BUN/Creatinine Ratio 31 (6-20) H Glucose Level 152 mg/dL (70-99) H Lactic Acid Level 2.5 mmol/L (0.4-2.0) H 2.0 mmol/L (0.4-2.0) Calcium Level 8.0 mg/dL (8.5-10.1) L Total Bilirubin 0.7 mg/dL (0.2-1.0) Aspartate Amino Transf (AST/SGOT) 127 U/L (15-37) H Alkaline Phosphatase 77 U/L (46-116) Total Protein 6.0 g/dL (6.4-8.2) L Albumin 2.7 g/dL (3.4-5.0) L Albumin/Globulin Ratio 0.8 (1.0-1.7) L O2 Saturation 99 % (92-99) Arterial Blood pH 7.58 (7.35-7.45) *H Arterial Blood pCO2 at Patient Temp 21 mmHg (35-46) L Arterial Blood pO2 at Patient Temp 172 mmHg (65-108) H Arterial Blood HCO3 19 mmol/L (21-28) L Arterial Blood Base Excess -1 mmol/L (-3-3) FiO2 50% ac 26/500/5 ASSESSMENT: 1. Cardiac arrest due to pacemaker battery depletion 2. NSTEMI - type 2 3, EDWIN 4. Cardiogenic shock. 5. Acute resp failure 6. Possible asp pna PLAN: 1. Echo with grossly normal LV function. Pacer working well. 2. Continue abx and titrate off vasopressors and extubate. Supportive care. Thanks Justicifation of Admission Dx: Justifications for Admission: Justification of Admission Dx: N/A DENIS CHEUNG MD Sep 23, 2021 22:59
[2021-09-24] VITALS (30 sets, daily range): BP systolic 98–148; BP diastolic 41–55
[2021-09-24] MEDS: AMPICILLIN/SULBACTAM 3 GM in IV NORMAL SALINE 100ML 100 ML IV SCH ×5 (00:16→23:58)
[2021-09-24] MEDS: MIDAZOLAM 100mg/100ml NS BAG 100 ML IV PRN (04:21)
[2021-09-24 06:11] LABS: BASO % 0 % (0-3); EOS % 1 % (0-3); HEMATOCRIT 27.4 % (39.0-53.0); HEMOGLOBIN 9.3 g/dL (13.0-17.5); LYMPH # 0.6 x10^3/uL (1.0-4.8); LYMPH % 7 % (24-48); MEAN CORPUSCULAR HEMOGLOBIN 32 pg (25-35); MEAN CORPUSCULAR HGB CONC 34 g/dL (31-37); MEAN CORPUSCULAR VOLUME 95 fL (79-100); MONO # 0.4 x10^3/uL (0.0-1.1); MONO % 6 % (0-9); NEUT # 6.9 x10^3/uL (1.8-7.7); NEUT % 86 % (31-73); PLATELET COUNT 103 x10^3/uL (140-400); RED BLOOD COUNT 2.87 x10^6/uL (4.30-5.70); RED CELL DISTRIBUTION WIDTH 14.7 % (11.5-14.5)
[2021-09-24 06:41] LABS: ALBUMIN 2.1 g/dL (3.4-5.0); ALBUMIN/GLOBULIN RATIO 0.7 (1.0-1.7); CALCIUM 7.4 mg/dL (8.5-10.1); CREATININE 1.6 mg/dL (0.7-1.3); GFR 41.2; MAGNESIUM 2.2 mg/dL (1.8-2.4); POTASSIUM 4.2 mmol/L (3.5-5.1); TOTAL BILIRUBIN 0.7 mg/dL (0.2-1.0); TOTAL PROTEIN 5.2 g/dL (6.4-8.2)
--- NOTE | 2021-09-24 08:13 | PDOC ---
[employer] PROGRESS NOTE Date of Service DOS: DATE: 09/24/21 TIME: 08:03 Chief Complaint Chief Complaint Acute hypoxic respiratory failure - likely due to aspiration pneumonia from vomiting likely from symptomatic 3rd degree heart block. Will cont vent, wean O2 as tolerated. Unasyn for aspiration pneumonia coverage. Consult pulmonology for vent management assistance PEA arrest - likely from above aspiration event, complicated by 3rd degree heart block. ROSC obtained Third degree heart block - s/p PPM generator change with apparent recovery of heart rate. Cont dopamine. ICU admission Abnormal chest CT - likely due to due to pneumonia Nausea and vomiting - likely from CHB, will treat for pneumonia, will rule out other infectious etiology. IV antiemetics Fall - second fall in a week. If neurologic recovery occurs needs gait testing, though likely this was related to cardiac event Closed head injury - posterior scalp abrasion, local wound care. Monitor neurologic function. Anemia - will check iron studies, likely of chronic disease Thrombocytopenia - unclear etiology, will trend EDWIN - likely vasomotor nephropathy from arrest. Family does not know of any history of CKD, will order [facility] records Lactic acidosis - likely due to hypoxia, will trend Transaminitis - likely related to shock liver, will monitor Elevated troponin - demand ischemia from 3rd degree heart block, likely, will trend out. HTN - will add back home meds as BP allows HLD - statin when taking PO History of Present Illness History of Present Illness Mr Cerda is an 86-year-old male with PMHx HTN, HLD s/p PPM who presented to [place] [facility] in [place] via EMS after a PEA cardiac arrest. Per his son, he was at home and in the presence of son and son-in-law when he was observed actively choking and subsequently falling on the floor with significant amount of emesis that was nonbloody and nonbilious in nature. Son reports vomit with recently ingested food and laying his father on his side and cleaning out his mouth while son-in-law called EMS. On EMS arrival ~3 minutes later, patient was unresponsive and cyanotic and they intubated. En-route patient was found to be pulseless in PEA and appropriate ACLS measures were followed with application of Howard device for chest compressions, and per report had a total of x2 epinephrine administered via left tibial IO. After approximately 5 minutes ROSC was obtained. In ED was noted unresponsive with pinpoint pupils and GCS 3 with no purposeful movements. Per EMS report and son the patient takes Plavix, lisinopril, rosuvastatin and citalopram at home. He has a pacemaker per son, which was placed in [place] over 10 years ago, and the son says he follows at [facility], doesn't know about pacer follow up. Per son he fell 4 days prior and was [facility], noted on his occiput. Family notes he has been more weak than usual over past 72 hours, no travel or sick contacts. Is fully vaccinated against COVID 19. EKG appeared with third-degree heart block at 42 bpm, left axis deviation, T wave inversion noted in lead I, III, V2-6, no STEMI Vitals obtained concerning for marked bradycardia and no respiratory effort Labs with WBC 9.1, Hb 11.4, platelets 128, ABG 7.2 459 on 100% FiO2, rapid COVID-19 negative, NA 137, K4.2, BUN 50, CR 2, glucose 247, lactic acid 8.6, calcium 8.6, bilirubin 0.6, AST 131, ALT 157, alkaline phosphatase 90, ammonia 25, albumin 3, troponin 0.134, INR 1.1, urinalysis bland. CT head and neck with no acute abnormalities. CT chest with bibasilar infiltrates and NGT and ETT in good positioning. security monitor concerning for third-degree heart block, with rate in the 20s, therefore 1 mg epinephrine administered with minimal improvement in HR, then 1 mg atropine without significant improvement, then dopamine gtt without sustained improvement. 3 L IV fluid administered and unasyn for aspiration pneumonitis. Ultimately was responsive to transcutaneous pacing and after discussion with cardiology he was transferred to [facility] for further care. To dental laboratory worker prior to my assessment, had pacemaker generator replaced emergently. Seen in ICU. Discussed with son bedside. 09/23: Afebrile, on vent with FiO2 50%, PEEP 5. Continue dopamine gtt. We will continue Unasyn for aspiration pneumonia. Chest x-ray showed suspected partially consolidated left lower lobe infiltrate superimposed on right lower and bilateral upper lobe multifocal interstitial infiltrate.. Critical care time 30 minutes spent reviewing charts, general labs, reviewing imaging, and discussion with RN. 09/24: Afebrile. On vent with FiO2 40%, PEEP 5. Remains on pressor support. Off dopamine. Will continue Unasyn for pneumonia. Continue supportive care, continue to wean off vent. Critical care time 30 minutes spent reviewing charts, general labs, reviewing imaging, discussion with Dr. Mcdanile, and discussion with RN. Vitals/I&O Vitals/I&O: Vital Signs Date Time Temp Pulse Resp B/P (MAP) Pulse Ox O2 Delivery O2 Flow Rate FiO2 09/24/21 07:00 71 18 142/50 100 09/24/21 05:25 Ventilator 09/24/21 04:00 99.4 99.4 I & O 09/23/21 09/23/21 09/24/21 15:00 23:00 07:00 Intake Total 100 ml 2374.063 ml 1457.3 ml Output Total 320 ml 450 ml 330 ml Balance -220 ml 1924.063 ml 1127.3 ml Physical Exam General: No acute distress, Other (Intubated and sedated) Heart: Regular rate Lungs: Crackles Abdomen: Normal bowel sounds, Soft, No tenderness, No hepatosplenomegaly, No masses Extremities: No clubbing, No cyanosis, No edema, Normal pulses, No tenderness/swelling Skin: No rashes, No breakdown, No significant lesion Labs Labs: Laboratory Tests Test 09/23/21 08:05 09/23/21 09:05 09/24/21 05:45 O2 Saturation 99 % (92-99) Arterial Blood pH 7.58 (7.35-7.45) Arterial Blood pCO2 at Patient Temp 21 mmHg (35-46) Arterial Blood pO2 at Patient Temp 172 mmHg (65-108) Arterial Blood HCO3 19 mmol/L (21-28) Arterial Blood Base Excess -1 mmol/L (-3-3) FiO2 50% ac 26/500/5 Lactic Acid Level 2.0 mmol/L (0.4-2.0) White Blood Count 8.0 x10^3/uL (4.0-11.0) Red Blood Count 2.87 x10^6/uL (4.30-5.70) Hemoglobin 9.3 g/dL (13.0-17.5) Hematocrit 27.4 % (39.0-53.0) Mean Corpuscular Volume 95 fL (79-100) Mean Corpuscular Hemoglobin 32 pg (25-35) Mean Corpuscular Hemoglobin Concent 34 g/dL (31-37) Red Cell Distribution Width 14.7 % (11.5-14.5) Platelet Count 103 x10^3/uL (140-400) Neutrophils (%) (Auto) 86 % (31-73) Lymphocytes (%) (Auto) 7 % (24-48) Monocytes (%) (Auto) 6 % (0-9) Eosinophils (%) (Auto) 1 % (0-3) Basophils (%) (Auto) 0 % (0-3) Neutrophils # (Auto) 6.9 x10^3/uL (1.8-7.7) Lymphocytes # (Auto) 0.6 x10^3/uL (1.0-4.8) Monocytes # (Auto) 0.4 x10^3/uL (0.0-1.1) Eosinophils # (Auto) 0.0 x10^3/uL (0.0-0.7) Basophils # (Auto) 0.0 x10^3/uL (0.0-0.2) Sodium Level 139 mmol/L (136-145) Potassium Level 4.2 mmol/L (3.5-5.1) Chloride Level 107 mmol/L (98-107) Carbon Dioxide Level 21 mmol/L (21-32) Anion Gap 11 (6-14) Blood Urea Nitrogen 53 mg/dL (8-26) Creatinine 1.6 mg/dL (0.7-1.3) Estimated GFR (Cockcroft-Gault) 41.2 BUN/Creatinine Ratio 33 (6-20) Glucose Level 142 mg/dL (70-99) Calcium Level 7.4 mg/dL (8.5-10.1) Magnesium Level 2.2 mg/dL (1.8-2.4) Total Bilirubin 0.7 mg/dL (0.2-1.0) Aspartate Amino Transf (AST/SGOT) 67 U/L (15-37) Alanine Aminotransferase (ALT/SGPT) 86 U/L (16-63) Alkaline Phosphatase 64 U/L (46-116) Total Protein 5.2 g/dL (6.4-8.2) Albumin 2.1 g/dL (3.4-5.0) Albumin/Globulin Ratio 0.7 (1.0-1.7) Comment Review of Relevant I have reviewed the following items ivania (where applicable) has been applied. Medications: Current Medications Medications (Trade) Dose Ordered Sig/Subha Route PRN Reason Start Time Stop Time Status Last Admin Dose Admin Famotidine (Pepcid Vial) 20 mg DAILY IVP 09/23/21 09:00 09/23/21 08:42 Heparin Sodium (Porcine) (Heparin Sodium) 5,000 unit Q12HR SQ 09/23/21 21:00 09/23/21 22:59 DC 09/23/21 20:45 Norepinephrine Bitartrate 8 mg/ Dextrose 258 ml @ 13.971 mls/ hr CONT PRN IV PER PROTOCOL 09/23/21 11:45 09/23/21 22:14 Justifications for Admission Chest Pain Indications Respiratory Distress?: Yes Justification for admission: Patient's respiratory distress as indicated by (SOB/tachypnea/abnormal breathing pattern plus hypoxemia/AMS/other evidence of respiratory compromise such as pulmonary edema on chest x-ray) will need inpatient level of care. Serious Diagnosis?: Yes Justification for admission: Chest pain may be indicative of potentially serious diagnosis/diagnoses Please state condition(s) which will require inpatient level of care for further evaluation and management. Other Justification DALLAS CISNEROS MD Sep 24, 2021 08:12
[2021-09-24 08:40] LABS: BASE EXCESS ABG -1 mmol/L (-3-3); HCO3 ABG 22 mmol/L (21-28); PCO2 ABG 32 mmHg (35-46); PO2 ABG 145 mmHg (65-108); SAT O2 ABG 98 % (92-99)
[2021-09-24] MEDS: FAMOTIDINE 20 MG/2 ML VIAL IVP SCH (09:02)
--- NOTE | 2021-09-24 09:53 | PDOC ---
PULMONARY PROGRESS NOTES DATE: 09/24/21 TIME: 09:52 Subjective Patient off sedation since this morning, does not follow verbal commands Has a cough and gag Vitals Vital Signs Date Time Temp Pulse Resp B/P (MAP) Pulse Ox O2 Delivery O2 Flow Rate FiO2 09/24/21 09:36 100 Ventilator 09/24/21 09:00 98.9 69 12 117/43 98.9 Lungs: Clear Cardiovascular: S1, S2 Abdomen: Soft Neuro Exam: Alert Extremities: Other (Some edema) Skin: Warm Labs Laboratory Tests Test 09/22/21 20:07 09/23/21 00:45 09/23/21 05:45 09/23/21 08:05 O2 Saturation 99 % (92-99) 99 % (92-99) Arterial Blood pH 7.40 (7.35-7.45) 7.58 (7.35-7.45) Arterial Blood pCO2 at Patient Temp 30 mmHg (35-46) 21 mmHg (35-46) Arterial Blood pO2 at Patient Temp 416 mmHg (65-108) 172 mmHg (65-108) Arterial Blood HCO3 18 mmol/L (21-28) 19 mmol/L (21-28) Arterial Blood Base Excess -6 mmol/L (-3-3) -1 mmol/L (-3-3) FiO2 100 50% ac 26/500/5 Troponin I Quantitative 0.786 ng/mL (0.000-0.055) 0.842 ng/mL (0.000-0.055) White Blood Count 9.9 x10^3/uL (4.0-11.0) Red Blood Count 3.43 x10^6/uL (4.30-5.70) Hemoglobin 11.1 g/dL (13.0-17.5) Hematocrit 32.4 % (39.0-53.0) Mean Corpuscular Volume 95 fL (79-100) Mean Corpuscular Hemoglobin 32 pg (25-35) Mean Corpuscular Hemoglobin Concent 34 g/dL (31-37) Red Cell Distribution Width 14.8 % (11.5-14.5) Platelet Count 126 x10^3/uL (140-400) Neutrophils (%) (Auto) 89 % (31-73) Lymphocytes (%) (Auto) 7 % (24-48) Monocytes (%) (Auto) 4 % (0-9) Eosinophils (%) (Auto) 0 % (0-3) Basophils (%) (Auto) 0 % (0-3) Neutrophils # (Auto) 8.8 x10^3/uL (1.8-7.7) Lymphocytes # (Auto) 0.7 x10^3/uL (1.0-4.8) Monocytes # (Auto) 0.4 x10^3/uL (0.0-1.1) Eosinophils # (Auto) 0.0 x10^3/uL (0.0-0.7) Basophils # (Auto) 0.0 x10^3/uL (0.0-0.2) Sodium Level 137 mmol/L (136-145) Potassium Level 5.0 mmol/L (3.5-5.1) Chloride Level 103 mmol/L (98-107) Carbon Dioxide Level 21 mmol/L (21-32) Anion Gap 13 (6-14) Blood Urea Nitrogen 56 mg/dL (8-26) Creatinine 1.8 mg/dL (0.7-1.3) Estimated GFR (Cockcroft-Gault) 36.0 BUN/Creatinine Ratio 31 (6-20) Glucose Level 152 mg/dL (70-99) Lactic Acid Level 2.5 mmol/L (0.4-2.0) Calcium Level 8.0 mg/dL (8.5-10.1) Total Bilirubin 0.7 mg/dL (0.2-1.0) Aspartate Amino Transf (AST/SGOT) 127 U/L (15-37) Alanine Aminotransferase (ALT/SGPT) 153 U/L (16-63) Alkaline Phosphatase 77 U/L (46-116) Total Protein 6.0 g/dL (6.4-8.2) Albumin 2.7 g/dL (3.4-5.0) Albumin/Globulin Ratio 0.8 (1.0-1.7) Test 09/23/21 09:05 09/24/21 05:45 Lactic Acid Level 2.0 mmol/L (0.4-2.0) White Blood Count 8.0 x10^3/uL (4.0-11.0) Red Blood Count 2.87 x10^6/uL (4.30-5.70) Hemoglobin 9.3 g/dL (13.0-17.5) Hematocrit 27.4 % (39.0-53.0) Mean Corpuscular Volume 95 fL (79-100) Mean Corpuscular Hemoglobin 32 pg (25-35) Mean Corpuscular Hemoglobin Concent 34 g/dL (31-37) Red Cell Distribution Width 14.7 % (11.5-14.5) Platelet Count 103 x10^3/uL (140-400) Neutrophils (%) (Auto) 86 % (31-73) Lymphocytes (%) (Auto) 7 % (24-48) Monocytes (%) (Auto) 6 % (0-9) Eosinophils (%) (Auto) 1 % (0-3) Basophils (%) (Auto) 0 % (0-3) Neutrophils # (Auto) 6.9 x10^3/uL (1.8-7.7) Lymphocytes # (Auto) 0.6 x10^3/uL (1.0-4.8) Monocytes # (Auto) 0.4 x10^3/uL (0.0-1.1) Eosinophils # (Auto) 0.0 x10^3/uL (0.0-0.7) Basophils # (Auto) 0.0 x10^3/uL (0.0-0.2) Sodium Level 139 mmol/L (136-145) Potassium Level 4.2 mmol/L (3.5-5.1) Chloride Level 107 mmol/L (98-107) Carbon Dioxide Level 21 mmol/L (21-32) Anion Gap 11 (6-14) Blood Urea Nitrogen 53 mg/dL (8-26) Creatinine 1.6 mg/dL (0.7-1.3) Estimated GFR (Cockcroft-Gault) 41.2 BUN/Creatinine Ratio 33 (6-20) Glucose Level 142 mg/dL (70-99) Calcium Level 7.4 mg/dL (8.5-10.1) Magnesium Level 2.2 mg/dL (1.8-2.4) Total Bilirubin 0.7 mg/dL (0.2-1.0) Aspartate Amino Transf (AST/SGOT) 67 U/L (15-37) Alanine Aminotransferase (ALT/SGPT) 86 U/L (16-63) Alkaline Phosphatase 64 U/L (46-116) Total Protein 5.2 g/dL (6.4-8.2) Albumin 2.1 g/dL (3.4-5.0) Albumin/Globulin Ratio 0.7 (1.0-1.7) Laboratory Tests Test 09/24/21 05:45 White Blood Count 8.0 x10^3/uL (4.0-11.0) Red Blood Count 2.87 x10^6/uL (4.30-5.70) Hemoglobin 9.3 g/dL (13.0-17.5) Hematocrit 27.4 % (39.0-53.0) Mean Corpuscular Volume 95 fL (79-100) Mean Corpuscular Hemoglobin 32 pg (25-35) Mean Corpuscular Hemoglobin Concent 34 g/dL (31-37) Red Cell Distribution Width 14.7 % (11.5-14.5) Platelet Count 103 x10^3/uL (140-400) Neutrophils (%) (Auto) 86 % (31-73) Lymphocytes (%) (Auto) 7 % (24-48) Monocytes (%) (Auto) 6 % (0-9) Eosinophils (%) (Auto) 1 % (0-3) Basophils (%) (Auto) 0 % (0-3) Neutrophils # (Auto) 6.9 x10^3/uL (1.8-7.7) Lymphocytes # (Auto) 0.6 x10^3/uL (1.0-4.8) Monocytes # (Auto) 0.4 x10^3/uL (0.0-1.1) Eosinophils # (Auto) 0.0 x10^3/uL (0.0-0.7) Basophils # (Auto) 0.0 x10^3/uL (0.0-0.2) Sodium Level 139 mmol/L (136-145) Potassium Level 4.2 mmol/L (3.5-5.1) Chloride Level 107 mmol/L (98-107) Carbon Dioxide Level 21 mmol/L (21-32) Anion Gap 11 (6-14) Blood Urea Nitrogen 53 mg/dL (8-26) Creatinine 1.6 mg/dL (0.7-1.3) Estimated GFR (Cockcroft-Gault) 41.2 BUN/Creatinine Ratio 33 (6-20) Glucose Level 142 mg/dL (70-99) Calcium Level 7.4 mg/dL (8.5-10.1) Magnesium Level 2.2 mg/dL (1.8-2.4) Total Bilirubin 0.7 mg/dL (0.2-1.0) Aspartate Amino Transf (AST/SGOT) 67 U/L (15-37) Alanine Aminotransferase (ALT/SGPT) 86 U/L (16-63) Alkaline Phosphatase 64 U/L (46-116) Total Protein 5.2 g/dL (6.4-8.2) Albumin 2.1 g/dL (3.4-5.0) Albumin/Globulin Ratio 0.7 (1.0-1.7) Medications Active Scripts Medications Dose Route/Sig Max Daily Dose Days Date Category Dose Instructions Urea 227 Gm Cream..g. 1 Tata TP DAILY 30 09/23/21 Reported Crestor (Rosuvastatin Calcium) 40 Mg Tablet 1 Tab PO DAILY 09/23/21 Reported Namenda (Memantine Hcl) 10 Mg Tablet 1 Tab PO BID 09/23/21 Reported Pantoprazole Sodium (Pantoprazole Sodium) 40 Mg Tablet.dr 40 Mg PO DAILYAC 09/23/21 Reported Lisinopril 40 Mg Tablet 0.5 Tab PO DAILY 09/23/21 Reported Levothyroxine Sodium 50 Mcg Tablet 1 Tab PO DAILY 09/23/21 Reported Xolegel (Ketoconazole) 45 Gm Gel..gram. 1 Tata TP BID 30 09/23/21 Reported Isosorbide Mononitrate Er (Isosorbide Mononitrate) 60 Mg Tab.er.24h 1 Tab PO DAILY 09/23/21 Reported Hydrophor Ointment (Mineral Oil/Hydrophil Petrolat) 454 Gm Oint...g. 454 Gm TP PRN PRN 09/23/21 Reported Zetia (Ezetimibe) 10 Mg Tablet 1 Tab PO DAILY 30 09/23/21 Reported Donepezil Hcl 10 Mg Tablet 1 Tab PO DAILY 09/23/21 Reported Clopidogrel (Clopidogrel Bisulfate) 75 Mg Tablet 75 Mg PO DAILY 09/23/21 Reported Celexa (Citalopram Hydrobromide) 40 Mg Tablet 1 Tab PO DAILY 09/23/21 Reported Vitamin D3 (Vitamin D) 25 Mcg Tablet 25 Mcg PO DAILY 09/23/21 Reported 1,000 UNITS = 25 MCG Thera Tears (Carboxymethylcellulose Sodium) 15 Ml Drops 1 Drop EACHEYE QID 09/23/21 Reported Atenolol 25 Mg Tablet 1 Tab PO DAILY 09/23/21 Reported Amlodipine Besylate 5 Mg Tablet 5 Mg PO DAILY 09/23/21 Reported Impression . IMPRESSION: 1. Acute hypoxemic respiratory failure secondary to complete heart block. 2. 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 3. Acute kidney injury. 4. Elevated liver chemistries. 5. Non-ST segment elevation myocardial infarction. 6. Severe protein malnutrition, present upon admission. 7. Respiratory alkalosis. Plan . ABG this morning noted Maintain off sedation Possible trial later on today once patient awakened Follow cardiology input PLAN: 1. Adjust minute ventilation to normalize pH. 2. Continue pressors for support. 3. Once the patient hemodynamically is stable, we will proceed with spontaneous trial and possibly extubate. 4. Cover bilateral pulmonary infiltrates with possible aspiration with ampicillin. 5. Continue sedation. 6. DVT and GI prophylaxis. I do appreciate the privilege in sharing in the patient's care. CT MERCEDES MD Sep 24, 2021 09:53
--- NOTE | 2021-09-24 11:04 | PDOC ---
KEKE ARGUETA LENS EDGER 09/24/21 1104: CARDIO Progress Notes Date and Time Date of Service 09/24/21 Time of Evaluation 1110 Subjective Subjective: Other (intubated ) Vitals Vitals Vital Signs Date Time Temp Pulse Resp B/P (MAP) Pulse Ox O2 Delivery O2 Flow Rate FiO2 09/24/21 10:00 71 12 119/50 99 09/24/21 09:36 Ventilator 09/24/21 09:00 98.9 98.9 Weight Weight [ ] Input and Output Intake and Output Intake and Output 09/24/21 07:00 Intake Total 3931.363 ml Output Total 1100 ml Balance 2831.363 ml Intake IV Total 2716.363 ml Tube Feeding 755 ml Other 460 ml Output Urine Total 1100 ml Laboratory Labs Laboratory Tests Test 09/24/21 05:45 09/24/21 08:00 White Blood Count 8.0 x10^3/uL (4.0-11.0) Red Blood Count 2.87 x10^6/uL (4.30-5.70) Hemoglobin 9.3 g/dL (13.0-17.5) Hematocrit 27.4 % (39.0-53.0) Mean Corpuscular Volume 95 fL (79-100) Mean Corpuscular Hemoglobin 32 pg (25-35) Mean Corpuscular Hemoglobin Concent 34 g/dL (31-37) Red Cell Distribution Width 14.7 % (11.5-14.5) Platelet Count 103 x10^3/uL (140-400) Neutrophils (%) (Auto) 86 % (31-73) Lymphocytes (%) (Auto) 7 % (24-48) Monocytes (%) (Auto) 6 % (0-9) Eosinophils (%) (Auto) 1 % (0-3) Basophils (%) (Auto) 0 % (0-3) Neutrophils # (Auto) 6.9 x10^3/uL (1.8-7.7) Lymphocytes # (Auto) 0.6 x10^3/uL (1.0-4.8) Monocytes # (Auto) 0.4 x10^3/uL (0.0-1.1) Eosinophils # (Auto) 0.0 x10^3/uL (0.0-0.7) Basophils # (Auto) 0.0 x10^3/uL (0.0-0.2) Sodium Level 139 mmol/L (136-145) Potassium Level 4.2 mmol/L (3.5-5.1) Chloride Level 107 mmol/L (98-107) Carbon Dioxide Level 21 mmol/L (21-32) Anion Gap 11 (6-14) Blood Urea Nitrogen 53 mg/dL (8-26) Creatinine 1.6 mg/dL (0.7-1.3) Estimated GFR (Cockcroft-Gault) 41.2 BUN/Creatinine Ratio 33 (6-20) Glucose Level 142 mg/dL (70-99) Calcium Level 7.4 mg/dL (8.5-10.1) Magnesium Level 2.2 mg/dL (1.8-2.4) Total Bilirubin 0.7 mg/dL (0.2-1.0) Aspartate Amino Transf (AST/SGOT) 67 U/L (15-37) Alanine Aminotransferase (ALT/SGPT) 86 U/L (16-63) Alkaline Phosphatase 64 U/L (46-116) Total Protein 5.2 g/dL (6.4-8.2) Albumin 2.1 g/dL (3.4-5.0) Albumin/Globulin Ratio 0.7 (1.0-1.7) O2 Saturation 98 % (92-99) Arterial Blood pH 7.46 (7.35-7.45) Arterial Blood pCO2 at Patient Temp 32 mmHg (35-46) Arterial Blood pO2 at Patient Temp 145 mmHg (65-108) Arterial Blood HCO3 22 mmol/L (21-28) Arterial Blood Base Excess -1 mmol/L (-3-3) FiO2 40/vent Physical Exam HEENT: Neck Supple W Full Motion Chest: Symmetric, Other (right chest PPM incision well approximated. Steri- strips intact. Diffuse chest ecchymosis. No hematoma ) LUNGS: Other (mechanical vent ) Heart: S1S2, no thrills, no rubs Abdomen: Other (sfot ) Extremities: No Edema Neurology: other (off sedation, not awake ) Assessment Assessment 1. Cardiac arrest due to pacemaker battery depletion 2. SSS s/p PPM. s/p generator change 3. NSTEMI - type 2. 4. Cardiomyopathy; echo with LVEF 45% 5. EDWIN 6. Cardiogenic shock; remains of low-dose pressor support. 7. Acute respiratory failure due to #1 8. Probable aspiration PNA; febrile 9. Elevated LFTs, shock liver; improving 10. Encephalopathy; off sedation, not yet awake 11. Thrombocytopenia; heparin discontinued Recommendations Trialing when awake, following command Titrate off pressor support as able Monitor PLTs Ongoing antibiotic therapy for probable aspiration Supportive care Justicifation of Admission Dx: Justifications for Admission: Justification of Admission Dx: N/A DENIS CHEUNG MD 09/24/21 1907: CARDIO Progress Notes Plan Plan The patient was seen and interviewed as well as examined at the bedside. The chart was reviewed. The case was discussed. Agree with the plan of care. KEKE ARGUETA APRN Sep 24, 2021 11:04 DENIS CHEUNG MD Sep 24, 2021 19:07
[2021-09-24 14:47] LABS: CHOLESTEROL/HDL RATIO 2.4
--- NOTE | 2021-09-24 16:11 | NUR ---
SS following up with discharge planning. SS reviewed pt chart and discussed with pt RN. Pt is currently on the vent at 35%. Pt on IV Ampicillin. No sedation. SS will continue to follow for discharge planning.
[2021-09-25] VITALS (24 sets, daily range): BP systolic 108–156; BP diastolic 44–70
[2021-09-25] MEDS: ACETAMINOPHEN 650 MG SUPP.RECT. PR PRN (00:26)
[2021-09-25 04:56] LABS: BASO % 1 % (0-3); EOS # 0.1 x10^3/uL (0.0-0.7); EOS % 3 % (0-3); HEMATOCRIT 23.2 % (39.0-53.0); HEMOGLOBIN 7.9 g/dL (13.0-17.5); LYMPH # 0.5 x10^3/uL (1.0-4.8); LYMPH % 11 % (24-48); MEAN CORPUSCULAR HEMOGLOBIN 33 pg (25-35); MEAN CORPUSCULAR HGB CONC 34 g/dL (31-37); MEAN CORPUSCULAR VOLUME 96 fL (79-100); MONO # 0.3 x10^3/uL (0.0-1.1); MONO % 7 % (0-9); NEUT # 3.8 x10^3/uL (1.8-7.7); NEUT % 78 % (31-73); PLATELET COUNT 89 x10^3/uL (140-400); RED BLOOD COUNT 2.42 x10^6/uL (4.30-5.70); RED CELL DISTRIBUTION WIDTH 14.5 % (11.5-14.5); WHITE BLOOD COUNT 4.8 x10^3/uL (4.0-11.0)
[2021-09-25 05:09] LABS: ALBUMIN 1.9 g/dL (3.4-5.0); ALBUMIN/GLOBULIN RATIO 0.6 (1.0-1.7); CALCIUM 7.3 mg/dL (8.5-10.1); CREATININE 2.2 mg/dL (0.7-1.3); GFR 28.5; POTASSIUM 4.2 mmol/L (3.5-5.1); TOTAL BILIRUBIN 0.6 mg/dL (0.2-1.0); TOTAL PROTEIN 4.9 g/dL (6.4-8.2)
[2021-09-25] MEDS: AMPICILLIN/SULBACTAM 3 GM in IV NORMAL SALINE 100ML 100 ML IV SCH ×3 (06:24→21:04)
--- NOTE | 2021-09-25 08:09 | RAD ---
EXAM: Chest, single view. HISTORY: Respiratory failure. COMPARISON: 09/23/2021 FINDINGS: A frontal view of the chest is obtained. There is diffuse increased interstitial opacity li jeremías due to interstitial infiltrate. The previously suspected left lower lobe consolidation is no john shona seen. There is a prominent cardiac silhouette and evidence of prior CABG. There is an endotrachea l tube within the mid trachea. There is a nasogastric tube within the stomach. The side-port is at or near the gastroesophageal junction. There is a cardiac pacemaker with leads in expected position. Th ere is no pneumothorax or pleural effusion. The right costophrenic angle is excluded from the field-o f-view. IMPRESSION: 1. Diffuse increased interstitial opacity likely due to interstitial infiltrate. No consolidation is seen. 2. Prominent cardiac silhouette. 3. Support lines and tubes, described above. Electronically signed by: Naty Noyola MD (09/25/2021 8:07 AM) [id number]
[2021-09-25 08:17] LABS: BASE EXCESS ABG -3 mmol/L (-3-3); HCO3 ABG 21 mmol/L (21-28); PCO2 ABG 32 mmHg (35-46); PO2 ABG 96 mmHg (65-108); SAT O2 ABG 97 % (92-99)
[2021-09-25 08:20] LABS: FIO2 ABG 35
--- NOTE | 2021-09-25 08:58 | PDOC ---
[employer] PROGRESS NOTE Date of Service DOS: DATE: 09/25/21 TIME: 08:55 Chief Complaint Chief Complaint Acute hypoxic respiratory failure - likely due to aspiration pneumonia from vomiting likely from symptomatic 3rd degree heart block. Will cont vent, wean O2 as tolerated. Unasyn for aspiration pneumonia coverage. Consult pulmonology for vent management assistance PEA arrest - likely from above aspiration event, complicated by 3rd degree heart block. ROSC obtained Third degree heart block - s/p PPM generator change with apparent recovery of heart rate. Cont dopamine. ICU admission Abnormal chest CT - likely due to due to pneumonia Nausea and vomiting - likely from CHB, will treat for pneumonia, will rule out other infectious etiology. IV antiemetics Fall - second fall in a week. If neurologic recovery occurs needs gait testing, though likely this was related to cardiac event Closed head injury - posterior scalp abrasion, local wound care. Monitor neurologic function. Anemia - will check iron studies, likely of chronic disease Thrombocytopenia - unclear etiology, will trend EDWIN - likely vasomotor nephropathy from arrest. Family does not know of any history of CKD, will order [facility] records Lactic acidosis - likely due to hypoxia, will trend Transaminitis - likely related to shock liver, will monitor Elevated troponin - demand ischemia from 3rd degree heart block, likely, will trend out. HTN - will add back home meds as BP allows HLD - statin when taking PO History of Present Illness History of Present Illness Mr Cerda is an 86-year-old male with PMHx HTN, HLD s/p PPM who presented to [place] [facility] in [place] via EMS after a PEA cardiac arrest. Per his son, he was at home and in the presence of son and son-in-law when he was observed actively choking and subsequently falling on the floor with significant amount of emesis that was nonbloody and nonbilious in nature. Son reports vomit with recently ingested food and laying his father on his side and cleaning out his mouth while son-in-law called EMS. On EMS arrival ~3 minutes later, patient was unresponsive and cyanotic and they intubated. En-route patient was found to be pulseless in PEA and appropriate ACLS measures were followed with application of Howard device for chest compressions, and per report had a total of x2 epinephrine administered via left tibial IO. After approximately 5 minutes ROSC was obtained. In ED was noted unresponsive with pinpoint pupils and GCS 3 with no purposeful movements. Per EMS report and son the patient takes Plavix, lisinopril, rosuvastatin and citalopram at home. He has a pacemaker per son, which was placed in [place] over 10 years ago, and the son says he follows at [facility], doesn't know about pacer follow up. Per son he fell 4 days prior and was [facility], noted on his occiput. Family notes he has been more weak than usual over past 72 hours, no travel or sick contacts. Is fully vaccinated against COVID 19. EKG appeared with third-degree heart block at 42 bpm, left axis deviation, T wave inversion noted in lead I, III, V2-6, no STEMI Vitals obtained concerning for marked bradycardia and no respiratory effort Labs with WBC 9.1, Hb 11.4, platelets 128, ABG 7.2 459 on 100% FiO2, rapid COVID-19 negative, NA 137, K4.2, BUN 50, CR 2, glucose 247, lactic acid 8.6, calcium 8.6, bilirubin 0.6, AST 131, ALT 157, alkaline phosphatase 90, ammonia 25, albumin 3, troponin 0.134, INR 1.1, urinalysis bland. CT head and neck with no acute abnormalities. CT chest with bibasilar infiltrates and NGT and ETT in good positioning. environmental monitoring specialist concerning for third-degree heart block, with rate in the 20s, therefore 1 mg epinephrine administered with minimal improvement in HR, then 1 mg atropine without significant improvement, then dopamine gtt without sustained improvement. 3 L IV fluid administered and unasyn for aspiration pneumonitis. Ultimately was responsive to transcutaneous pacing and after discussion with cardiology he was transferred to [facility] for further care. 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 Seen in ICU. Discussed with son bedside. 09/23: Afebrile, on vent with FiO2 50%, PEEP 5. Continue dopamine gtt. We will continue Unasyn for aspiration pneumonia. Chest x-ray showed suspected partially consolidated left lower lobe infiltrate superimposed on right lower and bilateral upper lobe multifocal interstitial infiltrate.. Critical care time 30 minutes spent reviewing charts, general labs, reviewing imaging, and discussion with RN. 09/24: Afebrile. On vent with FiO2 40%, PEEP 5. Remains on pressor support. Off dopamine. Will continue Unasyn for pneumonia. Continue supportive care, continue to wean off vent. Critical care time 30 minutes spent reviewing charts, general labs, reviewing imaging, discussion with Dr. Mcdaniel, and discussion with RN. 09/25: Low-grade fever overnight, T-max 100.6 F. On vent with FiO2 35%, PEEP 5. Chest x-ray yesterday showed diffuse increased interstitial opacity likely due to interstitial infiltrate. Continue IV antibiotics. He has been off sedation for the past 24 hours. Platelets have steadily dropped; platelets 89 today. I discussion with daughter and son-in-law by phone about concerns for worsening bruising and, cytopenia. They are agreeable to no chest compressions, as to not cause any further damage that may lead to prolonged intubation. We will continue to wean off ventilator. 30 minutes critical care time spent reviewing charts, reviewing labs, reviewing imaging, discussion with RN, and discussion with Dr. Ortiz. Vitals/I&O Vitals/I&O: Vital Signs Date Time Temp Pulse Resp B/P (MAP) Pulse Ox O2 Delivery O2 Flow Rate FiO2 09/25/21 07:57 100 Ventilator 09/25/21 07:29 98.5 69 15 120/50 (73) 98.5 I & O 09/24/21 09/24/21 09/25/21 15:00 23:00 07:00 Intake Total 340.60 ml 1501 ml 1470 ml Output Total 275 ml 255 ml 280 ml Balance 65.60 ml 1246 ml 1190 ml Physical Exam General: No acute distress, Other (Intubated and sedated) Heart: Regular rate Lungs: Clear Abdomen: Normal bowel sounds, Soft, No tenderness, No hepatosplenomegaly, No masses Extremities: No clubbing, No cyanosis, No edema, Normal pulses, No tenderness/swelling Skin: Other (Extensive bruising to anterior chest wall) Labs Labs: Laboratory Tests Test 09/24/21 11:21 09/25/21 04:25 09/25/21 08:10 Glucose (Fingerstick) 117 mg/dL (70-99) White Blood Count 4.8 x10^3/uL (4.0-11.0) Red Blood Count 2.42 x10^6/uL (4.30-5.70) Hemoglobin 7.9 g/dL (13.0-17.5) Hematocrit 23.2 % (39.0-53.0) Mean Corpuscular Volume 96 fL (79-100) Mean Corpuscular Hemoglobin 33 pg (25-35) Mean Corpuscular Hemoglobin Concent 34 g/dL (31-37) Red Cell Distribution Width 14.5 % (11.5-14.5) Platelet Count 89 x10^3/uL (140-400) Neutrophils (%) (Auto) 78 % (31-73) Lymphocytes (%) (Auto) 11 % (24-48) Monocytes (%) (Auto) 7 % (0-9) Eosinophils (%) (Auto) 3 % (0-3) Basophils (%) (Auto) 1 % (0-3) Neutrophils # (Auto) 3.8 x10^3/uL (1.8-7.7) Lymphocytes # (Auto) 0.5 x10^3/uL (1.0-4.8) Monocytes # (Auto) 0.3 x10^3/uL (0.0-1.1) Eosinophils # (Auto) 0.1 x10^3/uL (0.0-0.7) Basophils # (Auto) 0.0 x10^3/uL (0.0-0.2) Sodium Level 141 mmol/L (136-145) Potassium Level 4.2 mmol/L (3.5-5.1) Chloride Level 109 mmol/L (98-107) Carbon Dioxide Level 24 mmol/L (21-32) Anion Gap 8 (6-14) Blood Urea Nitrogen 68 mg/dL (8-26) Creatinine 2.2 mg/dL (0.7-1.3) Estimated GFR (Cockcroft-Gault) 28.5 BUN/Creatinine Ratio 31 (6-20) Glucose Level 130 mg/dL (70-99) Calcium Level 7.3 mg/dL (8.5-10.1) Total Bilirubin 0.6 mg/dL (0.2-1.0) Aspartate Amino Transf (AST/SGOT) 76 U/L (15-37) Alanine Aminotransferase (ALT/SGPT) 64 U/L (16-63) Alkaline Phosphatase 68 U/L (46-116) Total Protein 4.9 g/dL (6.4-8.2) Albumin 1.9 g/dL (3.4-5.0) Albumin/Globulin Ratio 0.6 (1.0-1.7) O2 Saturation 97 % (92-99) Arterial Blood pH 7.44 (7.35-7.45) Arterial Blood pCO2 at Patient Temp 32 mmHg (35-46) Arterial Blood pO2 at Patient Temp 96 mmHg (65-108) Arterial Blood HCO3 21 mmol/L (21-28) Arterial Blood Base Excess -3 mmol/L (-3-3) FiO2 35 Comment Review of Relevant I have reviewed the following items ivania (where applicable) has been applied. Justifications for Admission Chest Pain Indications Respiratory Distress?: Yes Justification for admission: Patient's respiratory distress as indicated by (SOB/tachypnea/abnormal breathing pattern plus hypoxemia/AMS/other evidence of respiratory compromise such as pulmonary edema on chest x-ray) will need inpatient level of care. Serious Diagnosis?: Yes Justification for admission: Chest pain may be indicative of potentially serious diagnosis/diagnoses Please state condition(s) which will require inpatient level of care for further evaluation and management. Other Justification DALLAS CISNEROS MD Sep 25, 2021 08:58
[2021-09-25] MEDS: FAMOTIDINE 20 MG/2 ML VIAL IVP SCH (09:00)
--- NOTE | 2021-09-25 09:21 | PDOC ---
PULMONARY PROGRESS NOTES DATE: 09/25/21 TIME: 09:21 Subjective Patient off sedation since this morning, does not follow verbal commands Has a cough and gag Vitals Vital Signs Date Time Temp Pulse Resp B/P (MAP) Pulse Ox O2 Delivery O2 Flow Rate FiO2 09/25/21 07:57 100 Ventilator 09/25/21 07:29 98.5 69 15 120/50 (73) 98.5 Lungs: Clear Cardiovascular: S1, S2 Abdomen: Soft Neuro Exam: Alert Extremities: Other (Some edema) Skin: Warm Labs Laboratory Tests Test 09/24/21 05:45 09/24/21 08:00 09/24/21 11:21 09/25/21 04:25 White Blood Count 8.0 x10^3/uL (4.0-11.0) 4.8 x10^3/uL (4.0-11.0) Red Blood Count 2.87 x10^6/uL (4.30-5.70) 2.42 x10^6/uL (4.30-5.70) Hemoglobin 9.3 g/dL (13.0-17.5) 7.9 g/dL (13.0-17.5) Hematocrit 27.4 % (39.0-53.0) 23.2 % (39.0-53.0) Mean Corpuscular Volume 95 fL (79-100) 96 fL (79-100) Mean Corpuscular Hemoglobin 32 pg (25-35) 33 pg (25-35) Mean Corpuscular Hemoglobin Concent 34 g/dL (31-37) 34 g/dL (31-37) Red Cell Distribution Width 14.7 % (11.5-14.5) 14.5 % (11.5-14.5) Platelet Count 103 x10^3/uL (140-400) 89 x10^3/uL (140-400) Neutrophils (%) (Auto) 86 % (31-73) 78 % (31-73) Lymphocytes (%) (Auto) 7 % (24-48) 11 % (24-48) Monocytes (%) (Auto) 6 % (0-9) 7 % (0-9) Eosinophils (%) (Auto) 1 % (0-3) 3 % (0-3) Basophils (%) (Auto) 0 % (0-3) 1 % (0-3) Neutrophils # (Auto) 6.9 x10^3/uL (1.8-7.7) 3.8 x10^3/uL (1.8-7.7) Lymphocytes # (Auto) 0.6 x10^3/uL (1.0-4.8) 0.5 x10^3/uL (1.0-4.8) Monocytes # (Auto) 0.4 x10^3/uL (0.0-1.1) 0.3 x10^3/uL (0.0-1.1) Eosinophils # (Auto) 0.0 x10^3/uL (0.0-0.7) 0.1 x10^3/uL (0.0-0.7) Basophils # (Auto) 0.0 x10^3/uL (0.0-0.2) 0.0 x10^3/uL (0.0-0.2) Sodium Level 139 mmol/L (136-145) 141 mmol/L (136-145) Potassium Level 4.2 mmol/L (3.5-5.1) 4.2 mmol/L (3.5-5.1) Chloride Level 107 mmol/L (98-107) 109 mmol/L (98-107) Carbon Dioxide Level 21 mmol/L (21-32) 24 mmol/L (21-32) Anion Gap 11 (6-14) 8 (6-14) Blood Urea Nitrogen 53 mg/dL (8-26) 68 mg/dL (8-26) Creatinine 1.6 mg/dL (0.7-1.3) 2.2 mg/dL (0.7-1.3) Estimated GFR (Cockcroft-Gault) 41.2 28.5 BUN/Creatinine Ratio 33 (6-20) 31 (6-20) Glucose Level 142 mg/dL (70-99) 130 mg/dL (70-99) Calcium Level 7.4 mg/dL (8.5-10.1) 7.3 mg/dL (8.5-10.1) Magnesium Level 2.2 mg/dL (1.8-2.4) Total Bilirubin 0.7 mg/dL (0.2-1.0) 0.6 mg/dL (0.2-1.0) Aspartate Amino Transf (AST/SGOT) 67 U/L (15-37) 76 U/L (15-37) Alanine Aminotransferase (ALT/SGPT) 86 U/L (16-63) 64 U/L (16-63) Alkaline Phosphatase 64 U/L (46-116) 68 U/L (46-116) Total Protein 5.2 g/dL (6.4-8.2) 4.9 g/dL (6.4-8.2) Albumin 2.1 g/dL (3.4-5.0) 1.9 g/dL (3.4-5.0) Albumin/Globulin Ratio 0.7 (1.0-1.7) 0.6 (1.0-1.7) Triglycerides Level 80 mg/dL (0-150) Cholesterol Level 90 mg/dL (0-200) LDL Cholesterol, Calculated 36 mg/dL (0-100) VLDL Cholesterol, Calculated 16 mg/dL (0-40) Non-HDL Cholesterol Calculated 52 mg/dL (0-129) HDL Cholesterol 38 mg/dL (40-60) Cholesterol/HDL Ratio 2.4 Thyroid Stimulating Hormone (TSH) 2.206 uIU/mL (0.358-3.74) O2 Saturation 98 % (92-99) Arterial Blood pH 7.46 (7.35-7.45) Arterial Blood pCO2 at Patient Temp 32 mmHg (35-46) Arterial Blood pO2 at Patient Temp 145 mmHg (65-108) Arterial Blood HCO3 22 mmol/L (21-28) Arterial Blood Base Excess -1 mmol/L (-3-3) FiO2 40/vent Glucose (Fingerstick) 117 mg/dL (70-99) Test 09/25/21 08:10 O2 Saturation 97 % (92-99) Arterial Blood pH 7.44 (7.35-7.45) Arterial Blood pCO2 at Patient Temp 32 mmHg (35-46) Arterial Blood pO2 at Patient Temp 96 mmHg (65-108) Arterial Blood HCO3 21 mmol/L (21-28) Arterial Blood Base Excess -3 mmol/L (-3-3) FiO2 35 Laboratory Tests Test 09/24/21 11:21 09/25/21 04:25 09/25/21 08:10 Glucose (Fingerstick) 117 mg/dL (70-99) White Blood Count 4.8 x10^3/uL (4.0-11.0) Red Blood Count 2.42 x10^6/uL (4.30-5.70) Hemoglobin 7.9 g/dL (13.0-17.5) Hematocrit 23.2 % (39.0-53.0) Mean Corpuscular Volume 96 fL (79-100) Mean Corpuscular Hemoglobin 33 pg (25-35) Mean Corpuscular Hemoglobin Concent 34 g/dL (31-37) Red Cell Distribution Width 14.5 % (11.5-14.5) Platelet Count 89 x10^3/uL (140-400) Neutrophils (%) (Auto) 78 % (31-73) Lymphocytes (%) (Auto) 11 % (24-48) Monocytes (%) (Auto) 7 % (0-9) Eosinophils (%) (Auto) 3 % (0-3) Basophils (%) (Auto) 1 % (0-3) Neutrophils # (Auto) 3.8 x10^3/uL (1.8-7.7) Lymphocytes # (Auto) 0.5 x10^3/uL (1.0-4.8) Monocytes # (Auto) 0.3 x10^3/uL (0.0-1.1) Eosinophils # (Auto) 0.1 x10^3/uL (0.0-0.7) Basophils # (Auto) 0.0 x10^3/uL (0.0-0.2) Sodium Level 141 mmol/L (136-145) Potassium Level 4.2 mmol/L (3.5-5.1) Chloride Level 109 mmol/L (98-107) Carbon Dioxide Level 24 mmol/L (21-32) Anion Gap 8 (6-14) Blood Urea Nitrogen 68 mg/dL (8-26) Creatinine 2.2 mg/dL (0.7-1.3) Estimated GFR (Cockcroft-Gault) 28.5 BUN/Creatinine Ratio 31 (6-20) Glucose Level 130 mg/dL (70-99) Calcium Level 7.3 mg/dL (8.5-10.1) Total Bilirubin 0.6 mg/dL (0.2-1.0) Aspartate Amino Transf (AST/SGOT) 76 U/L (15-37) Alanine Aminotransferase (ALT/SGPT) 64 U/L (16-63) Alkaline Phosphatase 68 U/L (46-116) Total Protein 4.9 g/dL (6.4-8.2) Albumin 1.9 g/dL (3.4-5.0) Albumin/Globulin Ratio 0.6 (1.0-1.7) O2 Saturation 97 % (92-99) Arterial Blood pH 7.44 (7.35-7.45) Arterial Blood pCO2 at Patient Temp 32 mmHg (35-46) Arterial Blood pO2 at Patient Temp 96 mmHg (65-108) Arterial Blood HCO3 21 mmol/L (21-28) Arterial Blood Base Excess -3 mmol/L (-3-3) FiO2 35 Medications Active Scripts Medications Dose Route/Sig Max Daily Dose Days Date Category Dose Instructions Urea 227 Gm Cream..g. 1 Tata TP DAILY 30 09/23/21 Reported Crestor (Rosuvastatin Calcium) 40 Mg Tablet 1 Tab PO DAILY 09/23/21 Reported Namenda (Memantine Hcl) 10 Mg Tablet 1 Tab PO BID 09/23/21 Reported Pantoprazole Sodium (Pantoprazole Sodium) 40 Mg Tablet.dr 40 Mg PO DAILYAC 09/23/21 Reported Lisinopril 40 Mg Tablet 0.5 Tab PO DAILY 09/23/21 Reported Levothyroxine Sodium 50 Mcg Tablet 1 Tab PO DAILY 09/23/21 Reported Xolegel (Ketoconazole) 45 Gm Gel..gram. 1 Tata TP BID 30 09/23/21 Reported Isosorbide Mononitrate Er (Isosorbide Mononitrate) 60 Mg Tab.er.24h 1 Tab PO DAILY 09/23/21 Reported Hydrophor Ointment (Mineral Oil/Hydrophil Petrolat) 454 Gm Oint...g. 454 Gm TP PRN PRN 09/23/21 Reported Zetia (Ezetimibe) 10 Mg Tablet 1 Tab PO DAILY 30 09/23/21 Reported Donepezil Hcl 10 Mg Tablet 1 Tab PO DAILY 09/23/21 Reported Clopidogrel (Clopidogrel Bisulfate) 75 Mg Tablet 75 Mg PO DAILY 09/23/21 Reported Celexa (Citalopram Hydrobromide) 40 Mg Tablet 1 Tab PO DAILY 09/23/21 Reported Vitamin D3 (Vitamin D) 25 Mcg Tablet 25 Mcg PO DAILY 09/23/21 Reported 1,000 UNITS = 25 MCG Thera Tears (Carboxymethylcellulose Sodium) 15 Ml Drops 1 Drop EACHEYE QID 09/23/21 Reported Atenolol 25 Mg Tablet 1 Tab PO DAILY 09/23/21 Reported Amlodipine Besylate 5 Mg Tablet 5 Mg PO DAILY 09/23/21 Reported Impression . IMPRESSION: 1. Acute hypoxemic respiratory failure secondary to complete heart block. 2. 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 3. Acute kidney injury. 4. Elevated liver chemistries. 5. Non-ST segment elevation myocardial infarction. 6. Severe protein malnutrition, present upon admission. 7. Respiratory alkalosis. Plan . ABG this morning noted Maintain off sedation Possible trial later on today once patient awakened Follow cardiology input PLAN: 1. Adjust minute ventilation to normalize pH. 2. Continue pressors for support. 3. Once the patient hemodynamically is stable, we will proceed with spontaneous trial and possibly extubate. 4. Cover bilateral pulmonary infiltrates with possible aspiration with ampicillin. 5. Continue sedation. 6. DVT and GI prophylaxis. I do appreciate the privilege in sharing in the patient's care. CT MERCEDES MD Sep 25, 2021 09:21
--- NOTE | 2021-09-25 10:23 | NUR ---
SS following up with discharge planning. SS reviewed pt chart and discussed with pt RN. Pt is currently on the vent at 35%. Pt on IV Ampicillin. No sedation. Physician contacting pt's family to discuss code status. SS will continue to follow for discharge planning.
--- NOTE | 2021-09-25 12:11 | PDOC2 ---
NEUROLOGY CONSULT Date of Service DOS: DATE: 09/25/21 TIME: 12:01 Reason for Consult Reason for Consult: post code Referring Physician Referring Physician: Dr. Vargas Source Source: Caregiver (son-in-law), Chart review History of Present Illness History of Present Illness The patient is an 86-year-old right-handed male with a history of a pacemaker who suddenly choked and vomited with the family on 09/22. His son-in-law attempted to clear his airway of recently eaten food and when paramedics arrived, they found him in pulseless electrical activity or asystole. Patient did have return of spontaneous cardiac rhythm. He was brought down here where he underwent a pacemaker generator change, as he had been found to have a depleted pacemaker battery is most likely cause of the event. Patient was taken off sedation yesterday. No one has witnessed any seizure activity. There is no prior history of stroke, seizure, or head injury. Past Medical History Cardiovascular: CAD, HTN, Hyperlipidemia Past Surgical History Past Surgical History: Pacemaker Family History Family History: CAD Social History Social History , no alcohol or tobacco Current Medications Current Medications Current Medications Fentanyl Citrate 30 ml @ 2.5 mls/hr CONT PRN IV SEE PROTOCOL Last administered on 09/24/21at 04:21; Start 09/22/21 at 18:00 Midazolam HCl 100 ml @ 1 mls/hr CONT PRN IV SEE PROTOCOL Last administered on 1 at 04:21; Start 09/22/21 at 18:00 Propofol 100 ml @ 2.244 mls/ hr CONT PRN IV PER PROTOCOL Last administered on 09/22/21at 17:39; Start 09/22/21 at 18:00 Sodium Chloride 500 ml @ 500 mls/hr 1X PRN PRN IV SEE COMMENTS; Start 09/22/21 at 18:00 Atropine Sulfate (ATROPINE 0.5mg SYRINGE) 0.5 mg PRN Q5MIN PRN IV SEE COMMENTS; Start 09/22/21 at 18:00 Famotidine (Pepcid Vial) 20 mg BID IVP Last administered on 09/22/21at 21:58; Start 09/22/21 at 21:00; Stop 09/23/21 at 08:32; Status DC Midazolam HCl (Versed) 2 mg 1X ONCE IV Last administered on 09/22/21at 18:15; Start 09/22/21 at 18:15; Stop 09/22/21 at 18:16; Status DC Lidocaine/ Epinephrine (LIDOCAINE 2%-EPI 1:100,000 multi-dose) 20 ml 1X ONCE IJ Last administered on 09/22/21at 18:17; Start 09/22/21 at 18:15; Stop 09/22/21 at 18:16; Status DC Cefazolin Sodium (Ancef) 1 gm 1X ONCE IVP Last administered on 09/22/21at 18:15; Start 09/22/21 at 18:15; Stop 09/22/21 at 18:16; Status DC Propofol 100 ml @ 2.244 mls/ hr CONT PRN IV PER PROTOCOL; Start 09/22/21 at 18:15; Status UNV Ondansetron HCl (Zofran) 4 mg PRN Q4HRS PRN IVP NAUSEA/VOMITING; Start 09/22/21 at 18:45 Acetaminophen (Tylenol Supp) 650 mg PRN Q6HRS PRN MS MILD PAIN / TEMP > 100.3'F Last administered on 09/25/21at 00:26; Start 09/22/21 at 18:45 Bisacodyl (Dulcolax Supp) 10 mg PRN DAILY PRN MS CONSTIPATION; Start 09/22/21 at 18:45 Promethazine HCl (Phenergan Supp) 12.5 mg PRN Q6HRS PRN MS NAUSEA/VOMITING; Start 09/22/21 at 18:45 Ampicillin Sodium/ Sulbactam Sodium 3 gm/Sodium Chloride 100 ml @ 200 mls/hr Q6HRS IV Last administered on 09/25/21at 06:24; Start 09/22/21 at 18:45 Dopamine HCl/ Dextrose 250 ml @ 28.05 mls/ hr CONT PRN IV SEE I/O RECORD Last administered on 09/23/21at 08:44; Start 09/22/21 at 18:45 Lidocaine/ Epinephrine (LIDOCAINE 2%-EPI 1:100,000 multi-dose) 20 ml STK-MED ONCE .ROUTE ; Start 09/22/21 at 18:53; Stop 09/22/21 at 18:53; Status DC Midazolam HCl (Versed) 2 mg STK-MED ONCE .ROUTE ; Start 09/22/21 at 18:53; Stop 09/22/21 at 18:53; Status DC Cefazolin Sodium (Ancef) 1 gm STK-MED ONCE IVP ; Start 09/22/21 at 18:53; Stop 09/22/21 at 18:53; Status DC Fentanyl Citrate (Fentanyl 2ml Vial) 25 mcg PRN Q3HRS PRN IVP SEVERE PAIN 7-10; Start 09/22/21 at 21:30; Status Cancel Famotidine (Pepcid Vial) 20 mg DAILY IVP Last administered on 09/25/21at 09:00; Start 09/23/21 at 09:00 Heparin Sodium (Porcine) (Heparin Sodium) 5,000 unit Q12HR SQ Last administered on 09/23/21at 20:45; Start 09/23/21 at 21:00; Stop 09/23/21 at 22:59; Status DC Norepinephrine Bitartrate 8 mg/ Dextrose 258 ml @ 13.971 mls/ hr CONT PRN IV PER PROTOCOL Last administered on 09/23/21at 22:14; Start 09/23/21 at 11:45 Active Scripts Active Reported Urea 227 Gm Cream..g. 1 Tata TP DAILY 30 Days Crestor (Rosuvastatin Calcium) 40 Mg Tablet 1 Tab PO DAILY Namenda (Memantine Hcl) 10 Mg Tablet 1 Tab PO BID Pantoprazole Sodium (Pantoprazole Sodium) 40 Mg Tablet.dr 40 Mg PO DAILYAC Lisinopril 40 Mg Tablet 0.5 Tab PO DAILY Levothyroxine Sodium 50 Mcg Tablet 1 Tab PO DAILY Xolegel (Ketoconazole) 45 Gm Gel..gram. 1 Tata TP BID 30 Days Isosorbide Mononitrate Er (Isosorbide Mononitrate) 60 Mg Tab.er.24h 1 Tab PO DAILY Hydrophor Ointment (Mineral Oil/Hydrophil Petrolat) 454 Gm Oint...g. 454 Gm TP PRN PRN Zetia (Ezetimibe) 10 Mg Tablet 1 Tab PO DAILY 30 Days Donepezil Hcl 10 Mg Tablet 1 Tab PO DAILY Clopidogrel (Clopidogrel Bisulfate) 75 Mg Tablet 75 Mg PO DAILY Celexa (Citalopram Hydrobromide) 40 Mg Tablet 1 Tab PO DAILY Vitamin D3 (Vitamin D) 25 Mcg Tablet 25 Mcg PO DAILY 1,000 UNITS = 25 MCG Thera Tears (Carboxymethylcellulose Sodium) 15 Ml Drops 1 Drop EACHEYE QID Atenolol 25 Mg Tablet 1 Tab PO DAILY Amlodipine Besylate 5 Mg Tablet 5 Mg PO DAILY Allergies Allergies: Coded Allergies: bee venom protein (honey bee) (Verified Allergy, Severe, 09/23/21) aspirin (Verified Allergy, Intermediate, 09/22/21) cholestyramine (Verified Allergy, Intermediate, 09/23/21) hydrochlorothiazide (Verified Allergy, Intermediate, 09/23/21) ROS Review of System Negative for fever, chills, weight loss, shortness of breath, chest pain, indigestion, hematochezia, melena, and dysuria. Full 14-point review of systems is negative. Physical Exam Physical Examination General: Well-developed, well-nourished, white male, in no acute distress HEENT: Normocephalic andatraumatic. Tympanic membranes clear.Temporal arteriespulsatile and nontender.Fundoscopic exam unremarkable Neck: Supple without bruit, no meningismus Musculoskeletal: Stability:see neurologic. Gait exam:see neurologic. Tone:see neurologic.Strength:see neurologic. Neurological: Mental Status: orientation, memory, attention span/concentration, language, fund of knowledge: Intubated, off sedation, no response to voice or visual threat, does respond to pain, has a cough reflex. Cranial Nerves:Pupils equal and reactive to light. There is no facial asymmetry. Reflexes:1+ and symmetric with silent plantar responses. Motor, coordination, gait, sensory:Otherwise untestable Vitals VITALS Vital Signs Date Time Temp Pulse Resp B/P (MAP) Pulse Ox O2 Delivery O2 Flow Rate FiO2 09/25/21 11:42 99 Ventilator 09/25/21 11:00 98.1 69 15 146/57 (86) 98.1 Labs Labs Laboratory Tests Test 09/24/21 05:45 09/24/21 08:00 09/24/21 11:21 09/25/21 04:25 White Blood Count 8.0 x10^3/uL (4.0-11.0) 4.8 x10^3/uL (4.0-11.0) Red Blood Count 2.87 x10^6/uL (4.30-5.70) 2.42 x10^6/uL (4.30-5.70) Hemoglobin 9.3 g/dL (13.0-17.5) 7.9 g/dL (13.0-17.5) Hematocrit 27.4 % (39.0-53.0) 23.2 % (39.0-53.0) Mean Corpuscular Volume 95 fL (79-100) 96 fL (79-100) Mean Corpuscular Hemoglobin 32 pg (25-35) 33 pg (25-35) Mean Corpuscular Hemoglobin Concent 34 g/dL (31-37) 34 g/dL (31-37) Red Cell Distribution Width 14.7 % (11.5-14.5) 14.5 % (11.5-14.5) Platelet Count 103 x10^3/uL (140-400) 89 x10^3/uL (140-400) Neutrophils (%) (Auto) 86 % (31-73) 78 % (31-73) Lymphocytes (%) (Auto) 7 % (24-48) 11 % (24-48) Monocytes (%) (Auto) 6 % (0-9) 7 % (0-9) Eosinophils (%) (Auto) 1 % (0-3) 3 % (0-3) Basophils (%) (Auto) 0 % (0-3) 1 % (0-3) Neutrophils # (Auto) 6.9 x10^3/uL (1.8-7.7) 3.8 x10^3/uL (1.8-7.7) Lymphocytes # (Auto) 0.6 x10^3/uL (1.0-4.8) 0.5 x10^3/uL (1.0-4.8) Monocytes # (Auto) 0.4 x10^3/uL (0.0-1.1) 0.3 x10^3/uL (0.0-1.1) Eosinophils # (Auto) 0.0 x10^3/uL (0.0-0.7) 0.1 x10^3/uL (0.0-0.7) Basophils # (Auto) 0.0 x10^3/uL (0.0-0.2) 0.0 x10^3/uL (0.0-0.2) Sodium Level 139 mmol/L (136-145) 141 mmol/L (136-145) Potassium Level 4.2 mmol/L (3.5-5.1) 4.2 mmol/L (3.5-5.1) Chloride Level 107 mmol/L (98-107) 109 mmol/L (98-107) Carbon Dioxide Level 21 mmol/L (21-32) 24 mmol/L (21-32) Anion Gap 11 (6-14) 8 (6-14) Blood Urea Nitrogen 53 mg/dL (8-26) 68 mg/dL (8-26) Creatinine 1.6 mg/dL (0.7-1.3) 2.2 mg/dL (0.7-1.3) Estimated GFR (Cockcroft-Gault) 41.2 28.5 BUN/Creatinine Ratio 33 (6-20) 31 (6-20) Glucose Level 142 mg/dL (70-99) 130 mg/dL (70-99) Calcium Level 7.4 mg/dL (8.5-10.1) 7.3 mg/dL (8.5-10.1) Magnesium Level 2.2 mg/dL (1.8-2.4) Total Bilirubin 0.7 mg/dL (0.2-1.0) 0.6 mg/dL (0.2-1.0) Aspartate Amino Transf (AST/SGOT) 67 U/L (15-37) 76 U/L (15-37) Alanine Aminotransferase (ALT/SGPT) 86 U/L (16-63) 64 U/L (16-63) Alkaline Phosphatase 64 U/L (46-116) 68 U/L (46-116) Total Protein 5.2 g/dL (6.4-8.2) 4.9 g/dL (6.4-8.2) Albumin 2.1 g/dL (3.4-5.0) 1.9 g/dL (3.4-5.0) Albumin/Globulin Ratio 0.7 (1.0-1.7) 0.6 (1.0-1.7) Triglycerides Level 80 mg/dL (0-150) Cholesterol Level 90 mg/dL (0-200) LDL Cholesterol, Calculated 36 mg/dL (0-100) VLDL Cholesterol, Calculated 16 mg/dL (0-40) Non-HDL Cholesterol Calculated 52 mg/dL (0-129) HDL Cholesterol 38 mg/dL (40-60) Cholesterol/HDL Ratio 2.4 Thyroid Stimulating Hormone (TSH) 2.206 uIU/mL (0.358-3.74) O2 Saturation 98 % (92-99) Arterial Blood pH 7.46 (7.35-7.45) Arterial Blood pCO2 at Patient Temp 32 mmHg (35-46) Arterial Blood pO2 at Patient Temp 145 mmHg (65-108) Arterial Blood HCO3 22 mmol/L (21-28) Arterial Blood Base Excess -1 mmol/L (-3-3) FiO2 40/vent Glucose (Fingerstick) 117 mg/dL (70-99) Test 09/25/21 08:10 O2 Saturation 97 % (92-99) Arterial Blood pH 7.44 (7.35-7.45) Arterial Blood pCO2 at Patient Temp 32 mmHg (35-46) Arterial Blood pO2 at Patient Temp 96 mmHg (65-108) Arterial Blood HCO3 21 mmol/L (21-28) Arterial Blood Base Excess -3 mmol/L (-3-3) FiO2 35 Laboratory Tests Test 09/25/21 04:25 09/25/21 08:10 White Blood Count 4.8 x10^3/uL (4.0-11.0) Red Blood Count 2.42 x10^6/uL (4.30-5.70) Hemoglobin 7.9 g/dL (13.0-17.5) Hematocrit 23.2 % (39.0-53.0) Mean Corpuscular Volume 96 fL (79-100) Mean Corpuscular Hemoglobin 33 pg (25-35) Mean Corpuscular Hemoglobin Concent 34 g/dL (31-37) Red Cell Distribution Width 14.5 % (11.5-14.5) Platelet Count 89 x10^3/uL (140-400) Neutrophils (%) (Auto) 78 % (31-73) Lymphocytes (%) (Auto) 11 % (24-48) Monocytes (%) (Auto) 7 % (0-9) Eosinophils (%) (Auto) 3 % (0-3) Basophils (%) (Auto) 1 % (0-3) Neutrophils # (Auto) 3.8 x10^3/uL (1.8-7.7) Lymphocytes # (Auto) 0.5 x10^3/uL (1.0-4.8) Monocytes # (Auto) 0.3 x10^3/uL (0.0-1.1) Eosinophils # (Auto) 0.1 x10^3/uL (0.0-0.7) Basophils # (Auto) 0.0 x10^3/uL (0.0-0.2) Sodium Level 141 mmol/L (136-145) Potassium Level 4.2 mmol/L (3.5-5.1) Chloride Level 109 mmol/L (98-107) Carbon Dioxide Level 24 mmol/L (21-32) Anion Gap 8 (6-14) Blood Urea Nitrogen 68 mg/dL (8-26) Creatinine 2.2 mg/dL (0.7-1.3) Estimated GFR (Cockcroft-Gault) 28.5 BUN/Creatinine Ratio 31 (6-20) Glucose Level 130 mg/dL (70-99) Calcium Level 7.3 mg/dL (8.5-10.1) Total Bilirubin 0.6 mg/dL (0.2-1.0) Aspartate Amino Transf (AST/SGOT) 76 U/L (15-37) Alanine Aminotransferase (ALT/SGPT) 64 U/L (16-63) Alkaline Phosphatase 68 U/L (46-116) Total Protein 4.9 g/dL (6.4-8.2) Albumin 1.9 g/dL (3.4-5.0) Albumin/Globulin Ratio 0.6 (1.0-1.7) O2 Saturation 97 % (92-99) Arterial Blood pH 7.44 (7.35-7.45) Arterial Blood pCO2 at Patient Temp 32 mmHg (35-46) Arterial Blood pO2 at Patient Temp 96 mmHg (65-108) Arterial Blood HCO3 21 mmol/L (21-28) Arterial Blood Base Excess -3 mmol/L (-3-3) FiO2 35 Images Images From [facility] 09/22: CT HEAD AND C-SPINE WO, CT THORAX WO Indication: Reason: fall to back of head / Spl. Instructions: / History: . One or more of the following dose reduction techniques were utilized: *Automated exposure control (AEC) *Adjustment of mA and/or kV according to patient size *Use of iterative reconstruction technique *CT scan done according to ALARA, or ALARA/IMAGE GENTLY EXAMINATION: CT OF THE HEAD WITHOUT CONTRAST INDICATION: Trauma, head injury, headache; TECHNIQUE: Noncontrast helical axial CT images of the head were obtained. FINDINGS: The ventricles and sulci are prominent consistent with cerebral volume loss. Patchy ill-defined low attenuation areas in the subcortical and periventricular white matter bilaterally are consistent with microvascular disease. There is no evidence of acute intracranial hemorrhage, extra-axial collection, mass effect, midline shift, or acute territorial infarct. No lesion of the skull base or the calvarium is seen. The visualized paranasal sinuses, mastoid air cells, and orbits are normal in appearance. IMPRESSION: No evidence for acute intracranial abnormality. Volume loss and microvascular disease. EXAMINATION: CT OF THE CERVICAL SPINE WITHOUT CONTRAST Clinical Indication: Cervical spine pain after trauma Technique: Thin cut helical axial CT images through the cervical spine were obtained without contrast on a multi-detector CT scanner. Source data was then reconstructed into sagittal and coronal planes. Findings: Alignment is maintained without spondylolisthesis. Vertebral body heights are maintained without acute fracture. Mild multilevel degenerative changes are noted. No significant prevertebral soft tissue swelling is demonstrated. No severe osseous central canal stenosis is seen. Endotracheal and nasogastric tubes are identified. Impression: No evidence of acute cervical spine fracture or subluxation. Degenerative changes noted. 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 Recommendations: I discussed the poor prognosis with the patient's son-in-law. He is now DO NOT RESUSCITATE but chemical code. I discussed that it is reasonable to give him another few days to see how he does, but no more than that. They need to consider what his wishes would be in the situation. No additional neurological studies needed Also discussed with Dr. Ortiz. Thank you for letting me help with the patient's care. BRIDGETTE ROLAND MD Sep 25, 2021 12:11
--- NOTE | 2021-09-25 15:01 | PDOC ---
KEKE ARGUETA DOUBLER HELPER 09/25/21 1501: CARDIO Progress Notes Date and Time Date of Service 09/25/21 Time of Evaluation 1312 Subjective Subjective: Other (intubated ) Vitals Vitals Vital Signs Date Time Temp Pulse Resp B/P (MAP) Pulse Ox O2 Delivery O2 Flow Rate FiO2 09/25/21 14:05 69 16 119/46 (70) 99 Ventilator 09/25/21 11:00 98.1 98.1 Weight Weight [ ] Input and Output Intake and Output Intake and Output 09/25/21 07:00 Intake Total 3311.60 ml Output Total 810 ml Balance 2501.60 ml Intake IV Total 1566.60 ml Tube Feeding 1445 ml Other 300 ml Output Urine Total 810 ml Laboratory Labs Laboratory Tests Test 09/25/21 04:25 09/25/21 08:10 White Blood Count 4.8 x10^3/uL (4.0-11.0) Red Blood Count 2.42 x10^6/uL (4.30-5.70) Hemoglobin 7.9 g/dL (13.0-17.5) Hematocrit 23.2 % (39.0-53.0) Mean Corpuscular Volume 96 fL (79-100) Mean Corpuscular Hemoglobin 33 pg (25-35) Mean Corpuscular Hemoglobin Concent 34 g/dL (31-37) Red Cell Distribution Width 14.5 % (11.5-14.5) Platelet Count 89 x10^3/uL (140-400) Neutrophils (%) (Auto) 78 % (31-73) Lymphocytes (%) (Auto) 11 % (24-48) Monocytes (%) (Auto) 7 % (0-9) Eosinophils (%) (Auto) 3 % (0-3) Basophils (%) (Auto) 1 % (0-3) Neutrophils # (Auto) 3.8 x10^3/uL (1.8-7.7) Lymphocytes # (Auto) 0.5 x10^3/uL (1.0-4.8) Monocytes # (Auto) 0.3 x10^3/uL (0.0-1.1) Eosinophils # (Auto) 0.1 x10^3/uL (0.0-0.7) Basophils # (Auto) 0.0 x10^3/uL (0.0-0.2) Sodium Level 141 mmol/L (136-145) Potassium Level 4.2 mmol/L (3.5-5.1) Chloride Level 109 mmol/L (98-107) Carbon Dioxide Level 24 mmol/L (21-32) Anion Gap 8 (6-14) Blood Urea Nitrogen 68 mg/dL (8-26) Creatinine 2.2 mg/dL (0.7-1.3) Estimated GFR (Cockcroft-Gault) 28.5 BUN/Creatinine Ratio 31 (6-20) Glucose Level 130 mg/dL (70-99) Calcium Level 7.3 mg/dL (8.5-10.1) Total Bilirubin 0.6 mg/dL (0.2-1.0) Aspartate Amino Transf (AST/SGOT) 76 U/L (15-37) Alanine Aminotransferase (ALT/SGPT) 64 U/L (16-63) Alkaline Phosphatase 68 U/L (46-116) Total Protein 4.9 g/dL (6.4-8.2) Albumin 1.9 g/dL (3.4-5.0) Albumin/Globulin Ratio 0.6 (1.0-1.7) O2 Saturation 97 % (92-99) Arterial Blood pH 7.44 (7.35-7.45) Arterial Blood pCO2 at Patient Temp 32 mmHg (35-46) Arterial Blood pO2 at Patient Temp 96 mmHg (65-108) Arterial Blood HCO3 21 mmol/L (21-28) Arterial Blood Base Excess -3 mmol/L (-3-3) FiO2 35 Physical Exam HEENT: Neck Supple W Full Motion Chest: Symmetric, Other (right chest PPM incision well approximated. Steri- strips intact. Diffuse chest ecchymosis. No hematoma ) LUNGS: Other (mechanical vent ) Heart: S1S2, RRR (100% AV paced ), other (distant heart tones ) Abdomen: Other (soft ) Extremities: No Edema Neurology: other (off sedation, not awake ) Assessment Assessment 1. Cardiac arrest due to pacemaker battery depletion 2. SSS s/p PPM. s/p generator change 3. NSTEMI - type 2. 4. Cardiomyopathy; echo with LVEF 45% 5. EDWIN 6. Cardiogenic shock; remains of low-dose pressor support. 7. Acute respiratory failure due to #1 8. Probable aspiration PNA; febrile 9. Elevated LFTs, shock liver; improving 10. Encephalopathy; off sedation, not yet awake 11. Thrombocytopenia; heparin discontinued Recommendations Trialing when awake, following command Titrate off pressor support as able Monitor PLTs Ongoing antibiotic therapy for probable aspiration Supportive care Justicifation of Admission Dx: Justifications for Admission: Justification of Admission Dx: N/A DENIS CHEUNG MD 09/25/21 1844: CARDIO Progress Notes Plan Plan The patient was seen and interviewed as well as examined at the bedside. The chart was reviewed. The case was discussed. Agree with the plan of care. KEKE ARGUETA APRN Sep 25, 2021 15:01 DENIS CHEUNG MD Sep 25, 2021 18:44
[2021-09-26] VITALS (24 sets, daily range): BP systolic 131–161; BP diastolic 50–68
--- NOTE | 2021-09-26 03:30 | NUR ---
Episode of questionable seizure activity lasting >60 seconds; patient appeared to be coughing, setting off vent alarm with Peek Pressure 60,and oxygen saturation dropping to 50%. Patient was suctioned with return of moderate thick brown secretions but he continued to set of vent alarm and oxygen saturation decreased further to 19%. Patient's jaw was rigid, head/neck/shoulders rocking forward and eyes rolled upward, HR increased to 120's. Activity stopped after about one minute, no further coughing and oxygen immediately increased to 100%. Dr Cathie sanchez, returned page and notified of above. Orders received to start Keppra 500MG IV Q12HRS. See orders.
[2021-09-26] MEDS: levETIRAcetam 500 MG in IV DEXTROSE 5% 100ML 100 ML IV SCH ×3 (03:57→21:03)
[2021-09-26 05:38] LABS: BASO % 0 % (0-3); EOS # 0.1 x10^3/uL (0.0-0.7); EOS % 1 % (0-3); HEMATOCRIT 26.2 % (39.0-53.0); HEMOGLOBIN 8.7 g/dL (13.0-17.5); LYMPH # 0.2 x10^3/uL (1.0-4.8); LYMPH % 4 % (24-48); MEAN CORPUSCULAR HEMOGLOBIN 32 pg (25-35); MEAN CORPUSCULAR HGB CONC 33 g/dL (31-37); MEAN CORPUSCULAR VOLUME 96 fL (79-100); MONO # 0.4 x10^3/uL (0.0-1.1); MONO % 7 % (0-9); NEUT # 5.1 x10^3/uL (1.8-7.7); NEUT % 88 % (31-73); PLATELET COUNT 105 x10^3/uL (140-400); RED BLOOD COUNT 2.73 x10^6/uL (4.30-5.70); RED CELL DISTRIBUTION WIDTH 14.7 % (11.5-14.5); WHITE BLOOD COUNT 5.8 x10^3/uL (4.0-11.0)
[2021-09-26 05:43] LABS: CALCIUM 7.7 mg/dL (8.5-10.1); CREATININE 1.9 mg/dL (0.7-1.3); GFR 33.8; MAGNESIUM 2.5 mg/dL (1.8-2.4)
--- NOTE | 2021-09-26 08:09 | RAD ---
EXAM: Chest, single view. HISTORY: Ventilatory support. COMPARISON: 09/25/2021 FINDINGS: A frontal view of the chest is obtained. There is an endotracheal tube within the mid trach ea. There is a nasogastric tube within the stomach. There is a cardiac pacemaker with leads in expect ed position. There is stable diffuse lower lobe predominant interstitial infiltrate. There is a stabl e cardiac silhouette and evidence of prior CABG. There is a suspected trace left pleural effusion. Th ere is no pneumothorax. IMPRESSION: 1. Stable diffuse interstitial infiltrate with suspected trace left pleural effusion. 2. Stable support lines and tubes. Electronically signed by: Naty Noyola MD (09/26/2021 8:07 AM) [id number]
--- NOTE | 2021-09-26 08:42 | PDOC ---
PULMONARY PROGRESS NOTES DATE: 09/26/21 TIME: 08:42 Subjective Patient has been off sedation for approximately 72 hours Appears to be responding to sternal rub a little bit Vitals Vital Signs Date Time Temp Pulse Resp B/P (MAP) Pulse Ox O2 Delivery O2 Flow Rate FiO2 09/26/21 07:40 98.4 69 20 136/53 (80) 100 Ventilator 98.4 Lungs: Clear Cardiovascular: S1, S2 Abdomen: Soft Neuro Exam: Alert Extremities: Other (Some edema) Skin: Warm Labs Laboratory Tests Test 09/24/21 11:21 09/25/21 04:25 09/25/21 08:10 09/26/21 04:30 Glucose (Fingerstick) 117 mg/dL (70-99) White Blood Count 4.8 x10^3/uL (4.0-11.0) 5.8 x10^3/uL (4.0-11.0) Red Blood Count 2.42 x10^6/uL (4.30-5.70) 2.73 x10^6/uL (4.30-5.70) Hemoglobin 7.9 g/dL (13.0-17.5) 8.7 g/dL (13.0-17.5) Hematocrit 23.2 % (39.0-53.0) 26.2 % (39.0-53.0) Mean Corpuscular Volume 96 fL (79-100) 96 fL (79-100) Mean Corpuscular Hemoglobin 33 pg (25-35) 32 pg (25-35) Mean Corpuscular Hemoglobin Concent 34 g/dL (31-37) 33 g/dL (31-37) Red Cell Distribution Width 14.5 % (11.5-14.5) 14.7 % (11.5-14.5) Platelet Count 89 x10^3/uL (140-400) 105 x10^3/uL (140-400) Neutrophils (%) (Auto) 78 % (31-73) 88 % (31-73) Lymphocytes (%) (Auto) 11 % (24-48) 4 % (24-48) Monocytes (%) (Auto) 7 % (0-9) 7 % (0-9) Eosinophils (%) (Auto) 3 % (0-3) 1 % (0-3) Basophils (%) (Auto) 1 % (0-3) 0 % (0-3) Neutrophils # (Auto) 3.8 x10^3/uL (1.8-7.7) 5.1 x10^3/uL (1.8-7.7) Lymphocytes # (Auto) 0.5 x10^3/uL (1.0-4.8) 0.2 x10^3/uL (1.0-4.8) Monocytes # (Auto) 0.3 x10^3/uL (0.0-1.1) 0.4 x10^3/uL (0.0-1.1) Eosinophils # (Auto) 0.1 x10^3/uL (0.0-0.7) 0.1 x10^3/uL (0.0-0.7) Basophils # (Auto) 0.0 x10^3/uL (0.0-0.2) 0.0 x10^3/uL (0.0-0.2) Sodium Level 141 mmol/L (136-145) 144 mmol/L (136-145) Potassium Level 4.2 mmol/L (3.5-5.1) 4.0 mmol/L (3.5-5.1) Chloride Level 109 mmol/L (98-107) 110 mmol/L (98-107) Carbon Dioxide Level 24 mmol/L (21-32) 24 mmol/L (21-32) Anion Gap 8 (6-14) 10 (6-14) Blood Urea Nitrogen 68 mg/dL (8-26) 60 mg/dL (8-26) Creatinine 2.2 mg/dL (0.7-1.3) 1.9 mg/dL (0.7-1.3) Estimated GFR (Cockcroft-Gault) 28.5 33.8 BUN/Creatinine Ratio 31 (6-20) Glucose Level 130 mg/dL (70-99) 178 mg/dL (70-99) Calcium Level 7.3 mg/dL (8.5-10.1) 7.7 mg/dL (8.5-10.1) Total Bilirubin 0.6 mg/dL (0.2-1.0) Aspartate Amino Transf (AST/SGOT) 76 U/L (15-37) Alanine Aminotransferase (ALT/SGPT) 64 U/L (16-63) Alkaline Phosphatase 68 U/L (46-116) Total Protein 4.9 g/dL (6.4-8.2) Albumin 1.9 g/dL (3.4-5.0) Albumin/Globulin Ratio 0.6 (1.0-1.7) O2 Saturation 97 % (92-99) Arterial Blood pH 7.44 (7.35-7.45) Arterial Blood pCO2 at Patient Temp 32 mmHg (35-46) Arterial Blood pO2 at Patient Temp 96 mmHg (65-108) Arterial Blood HCO3 21 mmol/L (21-28) Arterial Blood Base Excess -3 mmol/L (-3-3) FiO2 35 Magnesium Level 2.5 mg/dL (1.8-2.4) Laboratory Tests Test 09/26/21 04:30 White Blood Count 5.8 x10^3/uL (4.0-11.0) Red Blood Count 2.73 x10^6/uL (4.30-5.70) Hemoglobin 8.7 g/dL (13.0-17.5) Hematocrit 26.2 % (39.0-53.0) Mean Corpuscular Volume 96 fL (79-100) Mean Corpuscular Hemoglobin 32 pg (25-35) Mean Corpuscular Hemoglobin Concent 33 g/dL (31-37) Red Cell Distribution Width 14.7 % (11.5-14.5) Platelet Count 105 x10^3/uL (140-400) Neutrophils (%) (Auto) 88 % (31-73) Lymphocytes (%) (Auto) 4 % (24-48) Monocytes (%) (Auto) 7 % (0-9) Eosinophils (%) (Auto) 1 % (0-3) Basophils (%) (Auto) 0 % (0-3) Neutrophils # (Auto) 5.1 x10^3/uL (1.8-7.7) Lymphocytes # (Auto) 0.2 x10^3/uL (1.0-4.8) Monocytes # (Auto) 0.4 x10^3/uL (0.0-1.1) Eosinophils # (Auto) 0.1 x10^3/uL (0.0-0.7) Basophils # (Auto) 0.0 x10^3/uL (0.0-0.2) Sodium Level 144 mmol/L (136-145) Potassium Level 4.0 mmol/L (3.5-5.1) Chloride Level 110 mmol/L (98-107) Carbon Dioxide Level 24 mmol/L (21-32) Anion Gap 10 (6-14) Blood Urea Nitrogen 60 mg/dL (8-26) Creatinine 1.9 mg/dL (0.7-1.3) Estimated GFR (Cockcroft-Gault) 33.8 Glucose Level 178 mg/dL (70-99) Calcium Level 7.7 mg/dL (8.5-10.1) Magnesium Level 2.5 mg/dL (1.8-2.4) Medications Active Scripts Medications Dose Route/Sig Max Daily Dose Days Date Category Dose Instructions Urea 227 Gm Cream..g. 1 Tata TP DAILY 30 09/23/21 Reported Crestor (Rosuvastatin Calcium) 40 Mg Tablet 1 Tab PO DAILY 09/23/21 Reported Namenda (Memantine Hcl) 10 Mg Tablet 1 Tab PO BID 09/23/21 Reported Pantoprazole Sodium (Pantoprazole Sodium) 40 Mg Tablet.dr 40 Mg PO DAILYAC 09/23/21 Reported Lisinopril 40 Mg Tablet 0.5 Tab PO DAILY 09/23/21 Reported Levothyroxine Sodium 50 Mcg Tablet 1 Tab PO DAILY 09/23/21 Reported Xolegel (Ketoconazole) 45 Gm Gel..gram. 1 Tata TP BID 30 09/23/21 Reported Isosorbide Mononitrate Er (Isosorbide Mononitrate) 60 Mg Tab.er.24h 1 Tab PO DAILY 09/23/21 Reported Hydrophor Ointment (Mineral Oil/Hydrophil Petrolat) 454 Gm Oint...g. 454 Gm TP PRN PRN 09/23/21 Reported Zetia (Ezetimibe) 10 Mg Tablet 1 Tab PO DAILY 30 09/23/21 Reported Donepezil Hcl 10 Mg Tablet 1 Tab PO DAILY 09/23/21 Reported Clopidogrel (Clopidogrel Bisulfate) 75 Mg Tablet 75 Mg PO DAILY 09/23/21 Reported Celexa (Citalopram Hydrobromide) 40 Mg Tablet 1 Tab PO DAILY 09/23/21 Reported Vitamin D3 (Vitamin D) 25 Mcg Tablet 25 Mcg PO DAILY 09/23/21 Reported 1,000 UNITS = 25 MCG Thera Tears (Carboxymethylcellulose Sodium) 15 Ml Drops 1 Drop EACHEYE QID 09/23/21 Reported Atenolol 25 Mg Tablet 1 Tab PO DAILY 09/23/21 Reported Amlodipine Besylate 5 Mg Tablet 5 Mg PO DAILY 09/23/21 Reported Impression . IMPRESSION: 1. Acute hypoxemic respiratory failure secondary to complete heart block. 2. 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 3. Acute kidney injury. 4. Elevated liver chemistries. 5. Non-ST segment elevation myocardial infarction. 6. Severe protein malnutrition, present upon admission. 7. Respiratory alkalosis. Minute ventilation adjust 8. Patient does assist ventilator, brainstem function intact 9. Possible seizures Plan . Updated 09/26 Discussed with RN, pressure support of 5, tidal volumes adequate Will defer to nephrology for further discussion on withdrawal of care Continue current support Started on Kejerel Prognosis is poor, I would favor discontinuing mechanical support and allowing natural Updated 09/25 ABG this morning noted Maintain off sedation Possible trial later on today once patient awakened Follow cardiology input 09/24 PLAN: 1. Adjust minute ventilation to normalize pH. 2. Continue pressors for support. 3. Once the patient hemodynamically is stable, we will proceed with spontaneous trial and possibly extubate. 4. Cover bilateral pulmonary infiltrates with possible aspiration with ampicillin. 5. Continue sedation. 6. DVT and GI prophylaxis. I do appreciate the privilege in sharing in the patient's care. CT MERCEDES MD Sep 26, 2021 08:42
[2021-09-26 08:45] LABS: BASE EXCESS ABG -1 mmol/L (-3-3); HCO3 ABG 23 mmol/L (21-28); PCO2 ABG 32 mmHg (35-46); PO2 ABG 140 mmHg (65-108); SAT O2 ABG 98 % (92-99)
[2021-09-26 08:50] LABS: FIO2 ABG 35
--- NOTE | 2021-09-26 08:50 | PDOC ---
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 Had some possible seizure activity earlier this morning, none since starting levetiracetam Plan Levetiracetam Discussed the poor prognosis with the patient's son-in-law. Sister wants to fly up from [place] to see him. DO NOT RESUSCITATE but chemical code, son-in-law will discuss with family. No additional neurological studies needed Subjective None Objective Vital Signs Date Time Temp Pulse Resp B/P (MAP) Pulse Ox O2 Delivery O2 Flow Rate FiO2 09/26/21 08:33 100 Ventilator 09/26/21 07:40 98.4 69 20 136/53 (80) 98.4 Intake and Output 09/26/21 07:00 Intake Total 2692 ml Output Total 1670 ml Balance 1022 ml Intake IV Total 1164 ml Tube Feeding 1328 ml Other 200 ml Output Urine Total 1670 ml PHYSICAL EXAM Eyes closed, no response to voice or pain PERRL. CN: no focal findings. Muscle tone: normal. Muscle strength: Slight withdrawal to pain on the right DTR: 1+ Plantar reflex: Silent Gait: not examined. Sensory exam: Not cooperative. Cerebellar: Not cooperative Review of Relevant I have reviewed the following items ivania (where applicable) has been applied. Labs Laboratory Tests Test 09/24/21 11:21 09/25/21 04:25 09/25/21 08:10 09/26/21 04:30 Glucose (Fingerstick) 117 mg/dL (70-99) White Blood Count 4.8 x10^3/uL (4.0-11.0) 5.8 x10^3/uL (4.0-11.0) Red Blood Count 2.42 x10^6/uL (4.30-5.70) 2.73 x10^6/uL (4.30-5.70) Hemoglobin 7.9 g/dL (13.0-17.5) 8.7 g/dL (13.0-17.5) Hematocrit 23.2 % (39.0-53.0) 26.2 % (39.0-53.0) Mean Corpuscular Volume 96 fL (79-100) 96 fL (79-100) Mean Corpuscular Hemoglobin 33 pg (25-35) 32 pg (25-35) Mean Corpuscular Hemoglobin Concent 34 g/dL (31-37) 33 g/dL (31-37) Red Cell Distribution Width 14.5 % (11.5-14.5) 14.7 % (11.5-14.5) Platelet Count 89 x10^3/uL (140-400) 105 x10^3/uL (140-400) Neutrophils (%) (Auto) 78 % (31-73) 88 % (31-73) Lymphocytes (%) (Auto) 11 % (24-48) 4 % (24-48) Monocytes (%) (Auto) 7 % (0-9) 7 % (0-9) Eosinophils (%) (Auto) 3 % (0-3) 1 % (0-3) Basophils (%) (Auto) 1 % (0-3) 0 % (0-3) Neutrophils # (Auto) 3.8 x10^3/uL (1.8-7.7) 5.1 x10^3/uL (1.8-7.7) Lymphocytes # (Auto) 0.5 x10^3/uL (1.0-4.8) 0.2 x10^3/uL (1.0-4.8) Monocytes # (Auto) 0.3 x10^3/uL (0.0-1.1) 0.4 x10^3/uL (0.0-1.1) Eosinophils # (Auto) 0.1 x10^3/uL (0.0-0.7) 0.1 x10^3/uL (0.0-0.7) Basophils # (Auto) 0.0 x10^3/uL (0.0-0.2) 0.0 x10^3/uL (0.0-0.2) Sodium Level 141 mmol/L (136-145) 144 mmol/L (136-145) Potassium Level 4.2 mmol/L (3.5-5.1) 4.0 mmol/L (3.5-5.1) Chloride Level 109 mmol/L (98-107) 110 mmol/L (98-107) Carbon Dioxide Level 24 mmol/L (21-32) 24 mmol/L (21-32) Anion Gap 8 (6-14) 10 (6-14) Blood Urea Nitrogen 68 mg/dL (8-26) 60 mg/dL (8-26) Creatinine 2.2 mg/dL (0.7-1.3) 1.9 mg/dL (0.7-1.3) Estimated GFR (Cockcroft-Gault) 28.5 33.8 BUN/Creatinine Ratio 31 (6-20) Glucose Level 130 mg/dL (70-99) 178 mg/dL (70-99) Calcium Level 7.3 mg/dL (8.5-10.1) 7.7 mg/dL (8.5-10.1) Total Bilirubin 0.6 mg/dL (0.2-1.0) Aspartate Amino Transf (AST/SGOT) 76 U/L (15-37) Alanine Aminotransferase (ALT/SGPT) 64 U/L (16-63) Alkaline Phosphatase 68 U/L (46-116) Total Protein 4.9 g/dL (6.4-8.2) Albumin 1.9 g/dL (3.4-5.0) Albumin/Globulin Ratio 0.6 (1.0-1.7) O2 Saturation 97 % (92-99) Arterial Blood pH 7.44 (7.35-7.45) Arterial Blood pCO2 at Patient Temp 32 mmHg (35-46) Arterial Blood pO2 at Patient Temp 96 mmHg (65-108) Arterial Blood HCO3 21 mmol/L (21-28) Arterial Blood Base Excess -3 mmol/L (-3-3) FiO2 35 Magnesium Level 2.5 mg/dL (1.8-2.4) Laboratory Tests Test 09/26/21 04:30 White Blood Count 5.8 x10^3/uL (4.0-11.0) Red Blood Count 2.73 x10^6/uL (4.30-5.70) Hemoglobin 8.7 g/dL (13.0-17.5) Hematocrit 26.2 % (39.0-53.0) Mean Corpuscular Volume 96 fL (79-100) Mean Corpuscular Hemoglobin 32 pg (25-35) Mean Corpuscular Hemoglobin Concent 33 g/dL (31-37) Red Cell Distribution Width 14.7 % (11.5-14.5) Platelet Count 105 x10^3/uL (140-400) Neutrophils (%) (Auto) 88 % (31-73) Lymphocytes (%) (Auto) 4 % (24-48) Monocytes (%) (Auto) 7 % (0-9) Eosinophils (%) (Auto) 1 % (0-3) Basophils (%) (Auto) 0 % (0-3) Neutrophils # (Auto) 5.1 x10^3/uL (1.8-7.7) Lymphocytes # (Auto) 0.2 x10^3/uL (1.0-4.8) Monocytes # (Auto) 0.4 x10^3/uL (0.0-1.1) Eosinophils # (Auto) 0.1 x10^3/uL (0.0-0.7) Basophils # (Auto) 0.0 x10^3/uL (0.0-0.2) Sodium Level 144 mmol/L (136-145) Potassium Level 4.0 mmol/L (3.5-5.1) Chloride Level 110 mmol/L (98-107) Carbon Dioxide Level 24 mmol/L (21-32) Anion Gap 10 (6-14) Blood Urea Nitrogen 60 mg/dL (8-26) Creatinine 1.9 mg/dL (0.7-1.3) Estimated GFR (Cockcroft-Gault) 33.8 Glucose Level 178 mg/dL (70-99) Calcium Level 7.7 mg/dL (8.5-10.1) Magnesium Level 2.5 mg/dL (1.8-2.4) Medications Current Medications Fentanyl Citrate 30 ml @ 2.5 mls/hr CONT PRN IV SEE PROTOCOL Last administered on 09/24/21at 04:21; Start 09/22/21 at 18:00 Midazolam HCl 100 ml @ 1 mls/hr CONT PRN IV SEE PROTOCOL Last administered on 09/24/21at 04:21; Start 09/22/21 at 18:00 Propofol 100 ml @ 2.244 mls/ hr CONT PRN IV PER PROTOCOL Last administered on 09/22/21at 17:39; Start 09/22/21 at 18:00 Sodium Chloride 500 ml @ 500 mls/hr 1X PRN PRN IV SEE COMMENTS; Start 09/22/21 at 18:00 Atropine Sulfate (ATROPINE 0.5mg SYRINGE) 0.5 mg PRN Q5MIN PRN IV SEE COMMENTS; Start 09/22/21 at 18:00 Famotidine (Pepcid Vial) 20 mg BID IVP Last administered on 09/22/21at 21:58; Start 09/22/21 at 21:00; Stop 09/23/21 at 08:32; Status DC Midazolam HCl (Versed) 2 mg 1X ONCE IV Last administered on 09/22/21at 18:15; Start 09/22/21 at 18:15; Stop 09/22/21 at 18:16; Status DC Lidocaine/ Epinephrine (LIDOCAINE 2%-EPI 1:100,000 multi-dose) 20 ml 1X ONCE IJ Last administered on 09/22/21at 18:17; Start 09/22/21 at 18:15; Stop 09/22/21 at 18:16; Status DC Cefazolin Sodium (Ancef) 1 gm 1X ONCE IVP Last administered on 09/22/21at 18:15; Start 09/22/21 at 18:15; Stop 09/22/21 at 18:16; Status DC Propofol 100 ml @ 2.244 mls/ hr CONT PRN IV PER PROTOCOL; Start 09/22/21 at 18:15; Status UNV Ondansetron HCl (Zofran) 4 mg PRN Q4HRS PRN IVP NAUSEA/VOMITING; Start 09/22/21 at 18:45 Acetaminophen (Tylenol Supp) 650 mg PRN Q6HRS PRN AK MILD PAIN / TEMP > 100.3'F Last administered on 09/25/21at 00:26; Start 09/22/21 at 18:45 Bisacodyl (Dulcolax Supp) 10 mg PRN DAILY PRN AK CONSTIPATION; Start 09/22/21 at 18:45 Promethazine HCl (Phenergan Supp) 12.5 mg PRN Q6HRS PRN AK NAUSEA/VOMITING; Start 09/22/21 at 18:45 Ampicillin Sodium/ Sulbactam Sodium 3 gm/Sodium Chloride 100 ml @ 200 mls/hr Q6HRS IV Last administered on 09/25/21at 12:21; Start 09/22/21 at 18:45; Stop 09/25/21 at 16:21; Status DC Dopamine HCl/ Dextrose 250 ml @ 28.05 mls/ hr CONT PRN IV SEE I/O RECORD Last administered on 09/23/21at 08:44; Start 09/22/21 at 18:45 Lidocaine/ Epinephrine (LIDOCAINE 2%-EPI 1:100,000 multi-dose) 20 ml STK-MED ONCE .ROUTE ; Start 09/22/21 at 18:53; Stop 09/22/21 at 18:53; Status DC Midazolam HCl (Versed) 2 mg STK-MED ONCE .ROUTE ; Start 09/22/21 at 18:53; Stop 09/22/21 at 18:53; Status DC Cefazolin Sodium (Ancef) 1 gm STK-MED ONCE IVP ; Start 09/22/21 at 18:53; Stop 09/22/21 at 18:53; Status DC Fentanyl Citrate (Fentanyl 2ml Vial) 25 mcg PRN Q3HRS PRN IVP SEVERE PAIN 7-10; Start 09/22/21 at 21:30; Status Cancel Famotidine (Pepcid Vial) 20 mg DAILY IVP Last administered on 09/25/21at 09:00; Start 09/23/21 at 09:00 Heparin Sodium (Porcine) (Heparin Sodium) 5,000 unit Q12HR SQ Last administered on 09/23/21at 20:45; Start 09/23/21 at 21:00; Stop 09/23/21 at 22:59; Status DC Norepinephrine Bitartrate 8 mg/ Dextrose 258 ml @ 13.971 mls/ hr CONT PRN IV PER PROTOCOL Last administered on 09/23/21at 22:14; Start 09/23/21 at 11:45 Ampicillin Sodium/ Sulbactam Sodium 3 gm/Sodium Chloride 100 ml @ 200 mls/hr Q12HR IV Last administered on 09/25/21at 21:04; Start 09/25/21 at 21:00 Levetiracetam 500 mg/Dextrose 105 ml @ 420 mls/hr Q12HR IV Last administered on 09/26/21at 03:57; Start 09/26/21 at 04:00 Active Scripts Active Reported Urea 227 Gm Cream..g. 1 Tata TP DAILY 30 Days Crestor (Rosuvastatin Calcium) 40 Mg Tablet 1 Tab PO DAILY Namenda (Memantine Hcl) 10 Mg Tablet 1 Tab PO BID Pantoprazole Sodium (Pantoprazole Sodium) 40 Mg Tablet.dr 40 Mg PO DAILYAC Lisinopril 40 Mg Tablet 0.5 Tab PO DAILY Levothyroxine Sodium 50 Mcg Tablet 1 Tab PO DAILY Xolegel (Ketoconazole) 45 Gm Gel..gram. 1 Tata TP BID 30 Days Isosorbide Mononitrate Er (Isosorbide Mononitrate) 60 Mg Tab.er.24h 1 Tab PO DAILY Hydrophor Ointment (Mineral Oil/Hydrophil Petrolat) 454 Gm Oint...g. 454 Gm TP PRN PRN Zetia (Ezetimibe) 10 Mg Tablet 1 Tab PO DAILY 30 Days Donepezil Hcl 10 Mg Tablet 1 Tab PO DAILY Clopidogrel (Clopidogrel Bisulfate) 75 Mg Tablet 75 Mg PO DAILY Celexa (Citalopram Hydrobromide) 40 Mg Tablet 1 Tab PO DAILY Vitamin D3 (Vitamin D) 25 Mcg Tablet 25 Mcg PO DAILY 1,000 UNITS = 25 MCG Thera Tears (Carboxymethylcellulose Sodium) 15 Ml Drops 1 Drop EACHEYE QID Atenolol 25 Mg Tablet 1 Tab PO DAILY Amlodipine Besylate 5 Mg Tablet 5 Mg PO DAILY Vitals/I & O Vital Sign - Last 24 Hours 09/25/21 09/25/21 09/25/21 09/25/21 09:00 10:00 11:00 11:42 Temp 98.1 98.1 Pulse 71 69 69 Resp 14 15 15 B/P (MAP) 132/52 (78) 136/53 (80) 146/57 (86) Pulse Ox 100 100 100 99 O2 Delivery Ventilator Ventilator Ventilator Ventilator 09/25/21 09/25/21 09/25/21 09/25/21 12:12 12:16 13:29 13:57 Pulse 69 70 Resp 15 15 B/P (MAP) 122/47 (72) 120/46 (70) Pulse Ox 98 100 100 O2 Delivery Ventilator Mechanical Ventilator Ventilator Ventilator 09/25/21 09/25/21 09/25/21 09/25/21 14:05 15:22 16:04 16:22 Temp 97.9 97.9 Pulse 69 69 69 Resp 16 17 16 B/P (MAP) 119/46 (70) 123/46 (71) 127/55 (79) Pulse Ox 99 100 100 100 O2 Delivery Ventilator Ventilator Ventilator Ventilator 09/25/21 09/25/21 09/25/2128/21 16:23 17:03 18:10 19:00 Pulse 69 70 68 Resp 16 16 13 B/P (MAP) 131/50 (77) 141/56 (84) 147/59 (88) Pulse Ox 100 100 100 O2 Delivery Mechanical Ventilator Ventilator Ventilator Ventilator 09/25/21 09/25/21 09/25/21 09/25/21 20:00 20:00 20:59 21:00 Temp 98.3 98.3 Pulse 68 68 Resp 14 14 B/P (MAP) 156/61 (92) 142/55 (84) Pulse Ox 100 100 99 O2 Delivery Mechanical Ventilator Ventilator Ventilator Ventilator 09/25/21 09/25/21 09/25/21 09/26/21 22:00 23:00 23:59 00:01 Temp 99.2 99.2 Pulse 68 68 68 Resp 15 14 16 B/P (MAP) 146/57 (86) 143/56 (85) 148/57 (87) Pulse Ox 100 100 100 O2 Delivery Ventilator Ventilator Mechanical Ventilator Ventilator 09/26/21 09/26/21 09/26/21 09/26/21 00:28 01:00 02:00 03:00 Pulse 70 68 76 Resp 16 15 19 B/P (MAP) 140/52 (81) 149/55 (86) 161/63 (95) Pulse Ox 100 98 99 100 O2 Delivery Ventilator Ventilator Ventilator Ventilator 09/26/21 09/26/21 09/26/21 09/26/21 03:49 04:00 04:00 05:00 Temp 98.8 98.8 Pulse 68 68 Resp 8 13 B/P (MAP) 140/56 (84) 137/54 (81) Pulse Ox 100 99 100 O2 Delivery Ventilator Mechanical Ventilator Ventilator Ventilator 09/26/21 09/26/21 09/26/21 09/26/21 05:40 06:00 07:40 08:33 Temp 98.4 98.4 Pulse 68 69 Resp 13 20 B/P (MAP) 140/55 (83) 136/53 (80) Pulse Ox 100 100 100 100 O2 Delivery Ventilator Ventilator Ventilator Ventilator Intake and Output 09/25/21 09/25/21 09/26/21 15:00 23:00 07:00 Intake Total 200 ml 1254 ml 1238 ml Output Total 530 ml 680 ml 460 ml Balance -330 ml 574 ml 778 ml Justicifation of Admission Dx: Justifications for Admission: Justification of Admission Dx: N/A BRIDGETTE ROLAND MD Sep 26, 2021 08:50
[2021-09-26] MEDS: FAMOTIDINE 20 MG/2 ML VIAL IVP SCH (10:01)
[2021-09-26] MEDS: AMPICILLIN/SULBACTAM 3 GM in IV NORMAL SALINE 100ML 100 ML IV SCH ×2 (10:02→21:03)
[2021-09-26 10:09] LABS: % BANDS 3 % (0-9); % EOS 1 % (0-5); % LYMPHS 9 % (24-48); % MONOS 5 % (0-10); % SEGS 82 % (35-66); PLT ESTIMATE DECREASED (ADEQUATE)
--- NOTE | 2021-09-26 10:37 | PDOC ---
[employer] PROGRESS NOTE Date of Service DOS: DATE: 09/26/21 TIME: 10:32 Chief Complaint Chief Complaint Acute hypoxic respiratory failure - likely due to aspiration pneumonia from vomiting likely from symptomatic 3rd degree heart block. Will cont vent, wean O2 as tolerated. Unasyn for aspiration pneumonia coverage. Consult pulmonology for vent management assistance PEA arrest - likely from above aspiration event, complicated by 3rd degree heart block. ROSC obtained Third degree heart block - s/p PPM generator change with apparent recovery of heart rate. Cont dopamine. ICU admission Abnormal chest CT - likely due to due to pneumonia Nausea and vomiting - likely from CHB, will treat for pneumonia, will rule out other infectious etiology. IV antiemetics Fall - second fall in a week. If neurologic recovery occurs needs gait testing, though likely this was related to cardiac event Closed head injury - posterior scalp abrasion, local wound care. Monitor neurologic function. Anemia - will check iron studies, likely of chronic disease Thrombocytopenia - unclear etiology, will trend EDWIN - likely vasomotor nephropathy from arrest. Family does not know of any history of CKD, will order [facility] records Lactic acidosis - likely due to hypoxia, will trend Transaminitis - likely related to shock liver, will monitor Elevated troponin - demand ischemia from 3rd degree heart block, likely, will trend out. HTN - will add back home meds as BP allows HLD - statin when taking PO History of Present Illness History of Present Illness Mr Cerda is an 86-year-old male with PMHx HTN, HLD s/p PPM who presented to [facility] in [place] via EMS after a PEA cardiac arrest. Per his son, he was at home and in the presence of son and son-in-law when he was observed actively choking and subsequently falling on the floor with significant amount of emesis that was nonbloody and nonbilious in nature. Son reports vomit with recently ingested food and laying his father on his side and cleaning out his mouth while son-in-law called EMS. On EMS arrival ~3 minutes later, patient was unresponsive and cyanotic and they intubated. En-route patient was found to be pulseless in PEA and appropriate ACLS measures were followed with application of Howard device for chest compressions, and per report had a total of x2 epinephrine administered via left tibial IO. After approximately 5 minutes ROSC was obtained. In ED was noted unresponsive with pinpoint pupils and GCS 3 with no purposeful movements. Per EMS report and son the patient takes Plavix, lisinopril, rosuvastatin and citalopram at home. He has a pacemaker per son, which was placed in [place] over 10 years ago, and the son says he follows at [facility], doesn't know about pacer follow up. Per son he fell 4 days prior and [facility], noted on his occiput. Family notes he has been more weak than usual over past 72 hours, no travel or sick contacts. Is fully vaccinated against COVID 19. EKG appeared with third-degree heart block at 42 bpm, left axis deviation, T wave inversion noted in lead I, III, V2-6, no STEMI Vitals obtained concerning for marked bradycardia and no respiratory effort Labs with WBC 9.1, Hb 11.4, platelets 128, ABG 7.2 459 on 100% FiO2, rapid COVID-19 negative, NA 137, K4.2, BUN 50, CR 2, glucose 247, lactic acid 8.6, calcium 8.6, bilirubin 0.6, AST 131, ALT 157, alkaline phosphatase 90, ammonia 25, albumin 3, troponin 0.134, INR 1.1, urinalysis bland. CT head and neck with no acute abnormalities. CT chest with bibasilar infiltrates and NGT and ETT in good positioning. warehouse order puller concerning for third-degree heart block, with rate in the 20s, therefore 1 mg epinephrine administered with minimal improvement in HR, then 1 mg atropine without significant improvement, then dopamine gtt without sustained improvement. 3 L IV fluid administered and unasyn for aspiration pneumonitis. Ultimately was responsive to transcutaneous pacing and after discussion with cardiology he was transferred to [facility] for further care. To dye lab technician prior to my assessment, had pacemaker generator replaced emergently. Seen in ICU. Discussed with son bedside. 09/23: Afebrile, on vent with FiO2 50%, PEEP 5. Continue dopamine gtt. We will continue Unasyn for aspiration pneumonia. Chest x-ray showed suspected partially consolidated left lower lobe infiltrate superimposed on right lower and bilateral upper lobe multifocal interstitial infiltrate.. Critical care time 30 minutes spent reviewing charts, general labs, reviewing imaging, and discussion with RN. 09/24: Afebrile. On vent with FiO2 40%, PEEP 5. Remains on pressor support. Off dopamine. Will continue Unasyn for pneumonia. Continue supportive care, continue to wean off vent. Critical care time 30 minutes spent reviewing charts, general labs, reviewing imaging, discussion with Dr. Mcdaniel, and discussion with RN. 09/25: Low-grade fever overnight, T-max 100.6 F. On vent with FiO2 35%, PEEP 5. Chest x-ray yesterday showed diffuse increased interstitial opacity likely due to interstitial infiltrate. Continue IV antibiotics. He has been off sedation for the past 24 hours. Platelets have steadily dropped; platelets 89 today. I discussion with daughter and son-in-law by phone about concerns for worsening bruising and, cytopenia. They are agreeable to no chest compressions, as to not cause any further damage that may lead to prolonged intubation. We will continue to wean off ventilator. 30 minutes critical care time spent reviewing charts, reviewing labs, reviewing imaging, discussion with RN, and discussion with Dr. Ortiz. 09/26: Afebrile. On vent with FiO2 35%, PEEP 5. Chest x-ray today showing stable diffuse interstitial infiltrate. Platelets [address] Brand was consulted yesterday; he is discussed with family the likely poor prognosis. Sister wants to fly in from [place] to see him. Family would like DNR but chemical code; son-in-law will discuss with the rest of family. Critical care time 30 minutes spent reviewing chart, reviewing labs, reviewing imaging, discussing with Dr. Ortiz. Vitals/I&O Vitals/I&O: Vital Signs Date Time Temp Pulse Resp B/P (MAP) Pulse Ox O2 Delivery O2 Flow Rate FiO2 09/26/21 10:16 68 19 159/59 (92) 100 Ventilator 09/26/21 07:40 98.4 98.4 I & O0 09/25/21 09/25/21 09/26/21 15:00 23:00 07:00 Intake Total 200 ml 1254 ml 1238 ml Output Total 530 ml 680 ml 460 ml Balance -330 ml 574 ml 778 ml Physical Exam General: No acute distress, Other (Intubated and sedated) Heart: Regular rate Lungs: Clear Abdomen: Normal bowel sounds, Soft, No tenderness, No hepatosplenomegaly, No masses Extremities: No clubbing, No cyanosis, No edema, Normal pulses, No tenderness/swelling Skin: Other (Extensive bruising to anterior chest wall) Labs Labs: Laboratory Tests Test 09/26/21 04:30 09/26/21 08:45 White Blood Count 5.8 x10^3/uL (4.0-11.0) Red Blood Count 2.73 x10^6/uL (4.30-5.70) Hemoglobin 8.7 g/dL (13.0-17.5) Hematocrit 26.2 % (39.0-53.0) Mean Corpuscular Volume 96 fL (79-100) Mean Corpuscular Hemoglobin 32 pg (25-35) Mean Corpuscular Hemoglobin Concent 33 g/dL (31-37) Red Cell Distribution Width 14.7 % (11.5-14.5) Platelet Count 105 x10^3/uL (140-400) Neutrophils (%) (Auto) 88 % (31-73) Lymphocytes (%) (Auto) 4 % (24-48) Monocytes (%) (Auto) 7 % (0-9) Eosinophils (%) (Auto) 1 % (0-3) Basophils (%) (Auto) 0 % (0-3) Neutrophils # (Auto) 5.1 x10^3/uL (1.8-7.7) Lymphocytes # (Auto) 0.2 x10^3/uL (1.0-4.8) Monocytes # (Auto) 0.4 x10^3/uL (0.0-1.1) Eosinophils # (Auto) 0.1 x10^3/uL (0.0-0.7) Basophils # (Auto) 0.0 x10^3/uL (0.0-0.2) Segmented Neutrophils % 82 % (35-66) Band Neutrophils % 3 % (0-9) Lymphocytes % 9 % (24-48) Monocytes % 5 % (0-10) Eosinophils % 1 % (0-5) Platelet Estimate Decreased (ADEQUATE) Sodium Level 144 mmol/L (136-145) Potassium Level 4.0 mmol/L (3.5-5.1) Chloride Level 110 mmol/L (98-107) Carbon Dioxide Level 24 mmol/L (21-32) Anion Gap 10 (6-14) Blood Urea Nitrogen 60 mg/dL (8-26) Creatinine 1.9 mg/dL (0.7-1.3) Estimated GFR (Cockcroft-Gault) 33.8 Glucose Level 178 mg/dL (70-99) Calcium Level 7.7 mg/dL (8.5-10.1) Magnesium Level 2.5 mg/dL (1.8-2.4) O2 Saturation 98 % (92-99) Arterial Blood pH 7.46 (7.35-7.45) Arterial Blood pCO2 at Patient Temp 32 mmHg (35-46) Arterial Blood pO2 at Patient Temp 140 mmHg (65-108) Arterial Blood HCO3 23 mmol/L (21-28) Arterial Blood Base Excess -1 mmol/L (-3-3) FiO2 35 Comment Review of Relevant I have reviewed the following items ivania (where applicable) has been applied. Medications: Current Medications Medications (Trade) Dose Ordered Sig/Subha Route PRN Reason Start Time Stop Time Status Last Admin Dose Admin Ampicillin Sodium/ Sulbactam Sodium 3 gm/Sodium Chloride 100 ml @ 200 mls/hr Q12HR IV 09/25/21 21:00 09/26/21 10:02 Levetiracetam 500 mg/Dextrose 105 ml @ 420 mls/hr Q12HR IV 09/26/21 04:00 09/26/21 03:57 Justifications for Admission Chest Pain Indications Respiratory Distress?: Yes Justification for admission: Patient's respiratory distress as indicated by (SOB/tachypnea/abnormal breathing pattern plus hypoxemia/AMS/other evidence of respiratory compromise such as pulmonary edema on chest x-ray) will need inpatient level of care. Serious Diagnosis?: Yes Justification for admission: Chest pain may be indicative of potentially serious diagnosis/diagnoses Please state condition(s) which will require inpatient level of care for further evaluation and management. Other Justification DALLAS CISNEROS MD Sep 26, 2021 10:37
--- NOTE | 2021-09-26 13:11 | PDOC ---
CARDIO Progress Notes Date and Time Date of Service 09/26/2021 Time of Evaluation 1250 Subjective Subjective: Other (intubated ) Vitals Vitals Vital Signs Date Time Temp Pulse Resp B/P (MAP) Pulse Ox O2 Delivery O2 Flow Rate FiO2 09/26/21 12:22 70 17 135/53 (80) 100 Ventilator 09/26/21 11:08 98.4 98.4 Weight Weight [ ] Input and Output Intake and Output Intake and Output 09/26/21 07:00 Intake Total 2692 ml Output Total 1670 ml Balance 1022 ml Intake IV Total 1164 ml Tube Feeding 1328 ml Other 200 ml Output Urine Total 1670 ml Laboratory Labs Laboratory Tests Test 09/26/21 04:30 09/26/21 08:45 White Blood Count 5.8 x10^3/uL (4.0-11.0) Red Blood Count 2.73 x10^6/uL (4.30-5.70) Hemoglobin 8.7 g/dL (13.0-17.5) Hematocrit 26.2 % (39.0-53.0) Mean Corpuscular Volume 96 fL (79-100) Mean Corpuscular Hemoglobin 32 pg (25-35) Mean Corpuscular Hemoglobin Concent 33 g/dL (31-37) Red Cell Distribution Width 14.7 % (11.5-14.5) Platelet Count 105 x10^3/uL (140-400) Neutrophils (%) (Auto) 88 % (31-73) Lymphocytes (%) (Auto) 4 % (24-48) Monocytes (%) (Auto) 7 % (0-9) Eosinophils (%) (Auto) 1 % (0-3) Basophils (%) (Auto) 0 % (0-3) Neutrophils # (Auto) 5.1 x10^3/uL (1.8-7.7) Lymphocytes # (Auto) 0.2 x10^3/uL (1.0-4.8) Monocytes # (Auto) 0.4 x10^3/uL (0.0-1.1) Eosinophils # (Auto) 0.1 x10^3/uL (0.0-0.7) Basophils # (Auto) 0.0 x10^3/uL (0.0-0.2) Segmented Neutrophils % 82 % (35-66) Band Neutrophils % 3 % (0-9) Lymphocytes % 9 % (24-48) Monocytes % 5 % (0-10) Eosinophils % 1 % (0-5) Platelet Estimate Decreased (ADEQUATE) Sodium Level 144 mmol/L (136-145) Potassium Level 4.0 mmol/L (3.5-5.1) Chloride Level 110 mmol/L (98-107) Carbon Dioxide Level 24 mmol/L (21-32) Anion Gap 10 (6-14) Blood Urea Nitrogen 60 mg/dL (8-26) Creatinine 1.9 mg/dL (0.7-1.3) Estimated GFR (Cockcroft-Gault) 33.8 Glucose Level 178 mg/dL (70-99) Calcium Level 7.7 mg/dL (8.5-10.1) Magnesium Level 2.5 mg/dL (1.8-2.4) O2 Saturation 98 % (92-99) Arterial Blood pH 7.46 (7.35-7.45) Arterial Blood pCO2 at Patient Temp 32 mmHg (35-46) Arterial Blood pO2 at Patient Temp 140 mmHg (65-108) Arterial Blood HCO3 23 mmol/L (21-28) Arterial Blood Base Excess -1 mmol/L (-3-3) FiO2 35 Physical Exam HEENT: Neck Supple W Full Motion Chest: Symmetric, Other (right chest PPM incision well approximated. Steri- strips intact. Diffuse chest ecchymosis. No hematoma ) LUNGS: Other (mechanical vent ) Heart: S1S2, RRR (100% AV paced ), other (distant heart tones ) Abdomen: Other (soft ) Extremities: No Edema Neurology: other (off sedation, not awake ) Assessment Assessment 1. Cardiac arrest due to pacemaker battery depletion 2. SSS s/p PPM. s/p generator change AV pacing 3. NSTEMI - type 2. 4. Cardiomyopathy; echo with LVEF 45% 5. EDWIN: Cr at 1.9 6. Cardiogenic shock: BP better 7. Acute respiratory failure due to #1 8. Probable aspiration PNA; febrile 9. Elevated LFTs, shock liver; improving 10. Anoxic Encephalopathy; off sedation for 2 days 11. Thrombocytopenia; PLT up to 105 Recommendations Lasix PRN, dose today Ongoing antibiotic therapy for probable aspiration Poor prognosis, supportive care. Justicifation of Admission Dx: Justifications for Admission: Justification of Admission Dx: N/A EMIR TERRELL FARM MACHINERY ASSEMBLER Sep 26, 2021 13:11
[2021-09-26] MEDS ORDERED: FUROSEMIDE 20 MG/2 ML VIAL. IVP ONE (13:15)
[2021-09-27] VITALS (24 sets, daily range): BP systolic 128–156; BP diastolic 49–61
--- NOTE | 2021-09-27 06:20 | PDOC ---
PULMONARY PROGRESS NOTES DATE: 09/27/21 TIME: 06:18 Subjective on vent fio2 35% peep 5 Patient has been off sedation for approximately 4 day no response Vitals Vital Signs Date Time Temp Pulse Resp B/P (MAP) Pulse Ox O2 Delivery O2 Flow Rate FiO2 09/27/21 03:00 68 17 147/55 (85) 100 Ventilator 09/27/21 00:01 98.7 98.7 Comments ros unable to obtain on vent no response HEENT: Other (nc at orally intubated nose clear neck no lad no thyromegaly) Lungs: Clear Cardiovascular: S1, S2 Abdomen: Soft Neuro Exam: Alert Extremities: Other (Some edema) Skin: Warm Labs Laboratory Tests Test 09/25/21 08:10 09/26/21 04:30 09/26/21 08:45 O2 Saturation 97 % (92-99) 98 % (92-99) Arterial Blood pH 7.44 (7.35-7.45) 7.46 (7.35-7.45) Arterial Blood pCO2 at Patient Temp 32 mmHg (35-46) 32 mmHg (35-46) Arterial Blood pO2 at Patient Temp 96 mmHg (65-108) 140 mmHg (65-108) Arterial Blood HCO3 21 mmol/L (21-28) 23 mmol/L (21-28) Arterial Blood Base Excess -3 mmol/L (-3-3) -1 mmol/L (-3-3) FiO2 35 35 White Blood Count 5.8 x10^3/uL (4.0-11.0) Red Blood Count 2.73 x10^6/uL (4.30-5.70) Hemoglobin 8.7 g/dL (13.0-17.5) Hematocrit 26.2 % (39.0-53.0) Mean Corpuscular Volume 96 fL (79-100) Mean Corpuscular Hemoglobin 32 pg (25-35) Mean Corpuscular Hemoglobin Concent 33 g/dL (31-37) Red Cell Distribution Width 14.7 % (11.5-14.5) Platelet Count 105 x10^3/uL (140-400) Neutrophils (%) (Auto) 88 % (31-73) Lymphocytes (%) (Auto) 4 % (24-48) Monocytes (%) (Auto) 7 % (0-9) Eosinophils (%) (Auto) 1 % (0-3) Basophils (%) (Auto) 0 % (0-3) Neutrophils # (Auto) 5.1 x10^3/uL (1.8-7.7) Lymphocytes # (Auto) 0.2 x10^3/uL (1.0-4.8) Monocytes # (Auto) 0.4 x10^3/uL (0.0-1.1) Eosinophils # (Auto) 0.1 x10^3/uL (0.0-0.7) Basophils # (Auto) 0.0 x10^3/uL (0.0-0.2) Segmented Neutrophils % 82 % (35-66) Band Neutrophils % 3 % (0-9) Lymphocytes % 9 % (24-48) Monocytes % 5 % (0-10) Eosinophils % 1 % (0-5) Platelet Estimate Decreased (ADEQUATE) Sodium Level 144 mmol/L (136-145) Potassium Level 4.0 mmol/L (3.5-5.1) Chloride Level 110 mmol/L (98-107) Carbon Dioxide Level 24 mmol/L (21-32) Anion Gap 10 (6-14) Blood Urea Nitrogen 60 mg/dL (8-26) Creatinine 1.9 mg/dL (0.7-1.3) Estimated GFR (Cockcroft-Gault) 33.8 Glucose Level 178 mg/dL (70-99) Calcium Level 7.7 mg/dL (8.5-10.1) Magnesium Level 2.5 mg/dL (1.8-2.4) Laboratory Tests Test 09/26/21 08:45 O2 Saturation 98 % (92-99) Arterial Blood pH 7.46 (7.35-7.45) Arterial Blood pCO2 at Patient Temp 32 mmHg (35-46) Arterial Blood pO2 at Patient Temp 140 mmHg (65-108) Arterial Blood HCO3 23 mmol/L (21-28) Arterial Blood Base Excess -1 mmol/L (-3-3) FiO2 35 Medications Active Scripts Medications Dose Route/Sig Max Daily Dose Days Date Category Dose Instructions Urea 227 Gm Cream..g. 1 Tata TP DAILY 30 09/23/21 Reported Crestor (Rosuvastatin Calcium) 40 Mg Tablet 1 Tab PO DAILY 09/23/21 Reported Namenda (Memantine Hcl) 10 Mg Tablet 1 Tab PO BID 09/23/21 Reported Pantoprazole Sodium (Pantoprazole Sodium) 40 Mg Tablet.dr 40 Mg PO DAILYAC 09/23/21 Reported Lisinopril 40 Mg Tablet 0.5 Tab PO DAILY 09/23/21 Reported Levothyroxine Sodium 50 Mcg Tablet 1 Tab PO DAILY 09/23/21 Reported Xolegel (Ketoconazole) 45 Gm Gel..gram. 1 Tata TP BID 30 09/23/21 Reported Isosorbide Mononitrate Er (Isosorbide Mononitrate) 60 Mg Tab.er.24h 1 Tab PO DAILY 09/23/21 Reported Hydrophor Ointment (Mineral Oil/Hydrophil Petrolat) 454 Gm Oint...g. 454 Gm TP PRN PRN 09/23/21 Reported Zetia (Ezetimibe) 10 Mg Tablet 1 Tab PO DAILY 30 09/23/21 Reported Donepezil Hcl 10 Mg Tablet 1 Tab PO DAILY 09/23/21 Reported Clopidogrel (Clopidogrel Bisulfate) 75 Mg Tablet 75 Mg PO DAILY 09/23/21 Reported Celexa (Citalopram Hydrobromide) 40 Mg Tablet 1 Tab PO DAILY 09/23/21 Reported Vitamin D3 (Vitamin D) 25 Mcg Tablet 25 Mcg PO DAILY 09/23/21 Reported 1,000 UNITS = 25 MCG Thera Tears (Carboxymethylcellulose Sodium) 15 Ml Drops 1 Drop EACHEYE QID 09/23/21 Reported Atenolol 25 Mg Tablet 1 Tab PO DAILY 09/23/21 Reported Amlodipine Besylate 5 Mg Tablet 5 Mg PO DAILY 09/23/21 Reported Comments cxr reviewed Stable diffuse interstitial infiltrate with suspected trace left pleural effusion. ett ok Impression . IMPRESSION: 1. Acute hypoxemic respiratory failure secondary to complete heart block. 2. 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 3. Acute kidney injury. 4. Elevated liver chemistries. 5. Non-ST segment elevation myocardial infarction. 6. Severe protein malnutrition, present upon admission. 7. Respiratory alkalosis. Minute ventilation adjust 8. Patient does assist ventilator, brainstem function intact 9. Possible seizures Plan . Updated 09/27 cont vent support setting reviewed, not alert to do sbt prognosis poor agree w withdrawal of care Will defer to nephrology for further discussion on withdrawal of care Continue current support on Keppra abx discussed w rn Updated 09/26 Discussed with RN, pressure support of 5, tidal volumes adequate Will defer to nephrology for further discussion on withdrawal of care Continue current support Started on Keppra Prognosis is poor, I would favor discontinuing mechanical support and allowing natural Updated 09/25 ABG this morning noted Maintain off sedation Possible trial later on today once patient awakened Follow cardiology input 09/24 PLAN: 1. Adjust minute ventilation to normalize pH. 2. Continue pressors for support. 3. Once the patient hemodynamically is stable, we will proceed with spontaneous trial and possibly extubate. 4. Cover bilateral pulmonary infiltrates with possible aspiration with ampicillin. 5. Continue sedation. 6. DVT and GI prophylaxis. I do appreciate the privilege in sharing in the patient's care. OLIVE CAMPBELL MD Sep 27, 2021 06:20
[2021-09-27] MEDS: levETIRAcetam 500 MG in IV DEXTROSE 5% 100ML 100 ML IV SCH ×2 (08:22→21:43)
[2021-09-27] MEDS: AMPICILLIN/SULBACTAM 3 GM in IV NORMAL SALINE 100ML 100 ML IV SCH ×2 (08:22→20:59)
[2021-09-27] MEDS: FAMOTIDINE 20 MG/2 ML VIAL IVP SCH (08:23)
[2021-09-27 08:33] LABS: BASE EXCESS ABG -1 mmol/L (-3-3); HCO3 ABG 22 mmol/L (21-28); PCO2 ABG 31 mmHg (35-46); PO2 ABG 143 mmHg (65-108); SAT O2 ABG 98 % (92-99)
--- NOTE | 2021-09-27 09:49 | PDOC ---
[employer] PROGRESS NOTE Date of Service DOS: DATE: 09/27/21 TIME: 09:45 Chief Complaint Chief Complaint Acute hypoxic respiratory failure - likely due to aspiration pneumonia from vomiting likely from symptomatic 3rd degree heart block. Will cont vent, wean O2 as tolerated. Unasyn for aspiration pneumonia coverage. Consult pulmonology for vent management assistance PEA arrest - likely from above aspiration event, complicated by 3rd degree heart block. ROSC obtained Third degree heart block - s/p PPM generator change with apparent recovery of heart rate. Cont dopamine. ICU admission Abnormal chest CT - likely due to due to pneumonia Nausea and vomiting - likely from CHB, will treat for pneumonia, will rule out other infectious etiology. IV antiemetics Fall - second fall in a week. If neurologic recovery occurs needs gait testing, though likely this was related to cardiac event Closed head injury - posterior scalp abrasion, local wound care. Monitor neurologic function. Anemia - will check iron studies, likely of chronic disease Thrombocytopenia - unclear etiology, will trend EDWIN - likely vasomotor nephropathy from arrest. Family does not know of any history of CKD, will order [facility] records Lactic acidosis - likely due to hypoxia, will trend Transaminitis - likely related to shock liver, will monitor Elevated troponin - demand ischemia from 3rd degree heart block, likely, will trend out. HTN - will add back home meds as BP allows HLD - statin when taking PO History of Present Illness History of Present Illness Mr Cerda is an 86-year-old male with PMHx HTN, HLD s/p PPM who presented to [facility] in [place] via EMS after a PEA cardiac arrest. Per his son, he was at home and in the presence of son and son-in-law when he was observed actively choking and subsequently falling on the floor with significant amount of emesis that was nonbloody and nonbilious in nature. Son reports vomit with recently ingested food and laying his father on his side and cleaning out his mouth while son-in-law called EMS. On EMS arrival ~3 minutes later, patient was unresponsive and cyanotic and they intubated. En-route patient was found to be pulseless in PEA and appropriate ACLS measures were followed with application of Howard device for chest compressions, and per report had a total of x2 epinephrine administered via left tibial IO. After approximately 5 minutes ROSC was obtained. In ED was noted unresponsive with pinpoint pupils and GCS 3 with no purposeful movements. Per EMS report and son the patient takes Plavix, lisinopril, rosuvastatin and citalopram at home. He has a pacemaker per son, which was placed in [place] over 10 years ago, and the son says he follows at [facility], doesn't know about pacer follow up. Per son he fell 4 days prior and [facility], noted on his occiput. Family notes he has been more weak than usual over past 72 hours, no travel or sick contacts. Is fully vaccinated against COVID 19. EKG appeared with third-degree heart block at 42 bpm, left axis deviation, T wave inversion noted in lead I, III, V2-6, no STEMI Vitals obtained concerning for marked bradycardia and no respiratory effort Labs with WBC 9.1, Hb 11.4, platelets 128, ABG 7.2 459 on 100% FiO2, rapid COVID-19 negative, NA 137, K4.2, BUN 50, CR 2, glucose 247, lactic acid 8.6, calcium 8.6, bilirubin 0.6, AST 131, ALT 157, alkaline phosphatase 90, ammonia 25, albumin 3, troponin 0.134, INR 1.1, urinalysis bland. CT head and neck with no acute abnormalities. CT chest with bibasilar infiltrates and NGT and ETT in good positioning. monitoring manager concerning for third-degree heart block, with rate in the 20s, therefore 1 mg epinephrine administered with minimal improvement in HR, then 1 mg atropine without significant improvement, then dopamine gtt without sustained improvement. 3 L IV fluid administered and unasyn for aspiration pneumonitis. Ultimately was responsive to transcutaneous pacing and after discussion with cardiology he was transferred to [facility] for further care. To seed laboratory assistant prior to my assessment, had pacemaker generator replaced emergently. Seen in ICU. Discussed with son bedside. 09/23: Afebrile, on vent with FiO2 50%, PEEP 5. Continue dopamine gtt. We will continue Unasyn for aspiration pneumonia. Chest x-ray showed suspected partially consolidated left lower lobe infiltrate superimposed on right lower and bilateral upper lobe multifocal interstitial infiltrate.. Critical care time 30 minutes spent reviewing charts, general labs, reviewing imaging, and discussion with RN. 09/24: Afebrile. On vent with FiO2 40%, PEEP 5. Remains on pressor support. Off dopamine. Will continue Unasyn for pneumonia. Continue supportive care, continue to wean off vent. Critical care time 30 minutes spent reviewing charts, general labs, reviewing imaging, discussion with Dr. Mcdaniel, and discussion with RN. 09/25: Low-grade fever overnight, T-max 100.6 F. On vent with FiO2 35%, PEEP 5. Chest x-ray yesterday showed diffuse increased interstitial opacity likely due to interstitial infiltrate. Continue IV antibiotics. He has been off sedation for the past 24 hours. Platelets have steadily dropped; platelets 89 today. I discussion with daughter and son-in-law by phone about concerns for worsening bruising and, cytopenia. They are agreeable to no chest compressions, as to not cause any further damage that may lead to prolonged intubation. We will continue to wean off ventilator. 30 minutes critical care time spent reviewing charts, reviewing labs, reviewing imaging, discussion with RN, and discussion with Dr. Ortiz. 09/26: Afebrile. On vent with FiO2 35%, PEEP 5. Chest x-ray today showing stable diffuse interstitial infiltrate. Platelets [address] Brand was consulted yesterday; he is discussed with family the likely poor prognosis. Sister wants to fly in from [place] to see him. Family would like DNR but chemical code; son-in-law will discuss with the rest of family. Critical care time 30 minutes spent reviewing chart, reviewing labs, reviewing imaging, discussing with Dr. Ortiz. 09/27: Afebrile; on vent with FiO2 50%, PEEP 5. Off sedation for 72 hours. Some spontaneous movements noted this morning. I believe family is flying in from [place] to see him prior to making full DNR; chemical code. Critical care time 30 minutes spent reviewing charts, general labs, reviewing imaging, and discussion with RN. Vitals/I&O Vitals/I&O: Vital Signs Date Time Temp Pulse Resp B/P (MAP) Pulse Ox O2 Delivery O2 Flow Rate FiO2 09/27/21 09:00 69 14 139/49 (79) 100 Ventilator 09/27/21 08:00 99.4 99.4 I & O 09/26/21 09/26/21 09/27/21 15:00 23:00 07:00 Intake Total 300 ml 1164 ml 1037 ml Output Total 1020 ml 1150 ml 495 ml Balance -720 ml 14 ml 542 ml Physical Exam General: No acute distress, Other (Intubated and sedated) Heart: Regular rate Lungs: Clear Abdomen: Normal bowel sounds, Soft, No tenderness, No hepatosplenomegaly, No masses Extremities: No clubbing, No cyanosis, No edema, Normal pulses, No tenderne ss/swelling Skin: Other (Extensive bruising to anterior chest wall) Labs Labs: Laboratory Tests Test 09/27/21 08:00 O2 Saturation 98 % (92-99) Arterial Blood pH 7.47 (7.35-7.45) Arterial Blood pCO2 at Patient Temp 31 mmHg (35-46) Arterial Blood pO2 at Patient Temp 143 mmHg (65-108) Arterial Blood HCO3 22 mmol/L (21-28) Arterial Blood Base Excess -1 mmol/L (-3-3) FiO2 35/vent Comment Review of Relevant I have reviewed the following items ivania (where applicable) has been applied. Medications: Current Medications Medications (Trade) Dose Ordered Sig/Subha Route PRN Reason Start Time Stop Time Status Last Admin Dose Admin Furosemide (Lasix) 20 mg 1X ONCE IVP 09/26/21 13:15 09/26/21 13:16 DC 09/26/21 13:15 Justifications for Admission Chest Pain Indications Respiratory Distress?: Yes Justification for admission: Patient's respiratory distress as indicated by (SOB/tachypnea/abnormal breathing pattern plus hypoxemia/AMS/other evidence of respiratory compromise such as pulmonary edema on chest x-ray) will need inpatient level of care. Serious Diagnosis?: Yes Justification for admission: Chest pain may be indicative of potentially serious diagnosis/diagnoses Please state condition(s) which will require inpatient level of care for further evaluation and management. Other Justification DALLAS CISNEROS MD Sep 27, 2021 09:49
--- NOTE | 2021-09-27 12:52 | PDOC ---
PROGRESS NOTES Date of Service DATE: 09/27/21 TIME: 12:49 Subjective Subjective Patient seen and examined Objective Objective Vital Signs Date Time Temp Pulse Resp B/P (MAP) Pulse Ox O2 Delivery O2 Flow Rate FiO2 09/27/21 12:05 100 Ventilator 09/27/21 12:00 98.6 69 16 138/55 (82) 98.6 Intake and Output 09/27/21 07:00 Intake Total 2501 ml Output Total 2665 ml Balance -164 ml Intake IV Total 548 ml Tube Feeding 1552 ml Blood Product IV Normal Saline Flush 201 ml Other 200 ml Output Urine Total 2665 ml Physical Exam Abdomen: Normal bowel sounds Heart: Regular rate General: Other (Intubated on a ventilator.) Lungs: Other (Mildly decreased breath sounds.) Assessment Assessment Cardiac arrest due to pacemaker battery depletion SSS s/p PPM. s/p generator change. Continues with AV pacing NSTEMI - type 2. Cardiomyopathy; echo with LVEF 45% EDWIN: Monitoring lab. Cardiogenic shock: BP improved. Acute respiratory failure due to #1 Probable aspiration PNA; febrile. On antibiotics. Elevated LFTs, shock liver; improving Anoxic Encephalopathy; off sedation. Followed by neurology. Thrombocytopenia; monitoring Comment Review of Relevant I have reviewed the following items ivania (where applicable) has been applied. Labs Laboratory Tests Test 09/26/21 04:30 09/26/21 08:45 09/27/21 08:00 White Blood Count 5.8 x10^3/uL (4.0-11.0) Red Blood Count 2.73 x10^6/uL (4.30-5.70) Hemoglobin 8.7 g/dL (13.0-17.5) Hematocrit 26.2 % (39.0-53.0) Mean Corpuscular Volume 96 fL (79-100) Mean Corpuscular Hemoglobin 32 pg (25-35) Mean Corpuscular Hemoglobin Concent 33 g/dL (31-37) Red Cell Distribution Width 14.7 % (11.5-14.5) Platelet Count 105 x10^3/uL (140-400) Neutrophils (%) (Auto) 88 % (31-73) Lymphocytes (%) (Auto) 4 % (24-48) Monocytes (%) (Auto) 7 % (0-9) Eosinophils (%) (Auto) 1 % (0-3) Basophils (%) (Auto) 0 % (0-3) Neutrophils # (Auto) 5.1 x10^3/uL (1.8-7.7) Lymphocytes # (Auto) 0.2 x10^3/uL (1.0-4.8) Monocytes # (Auto) 0.4 x10^3/uL (0.0-1.1) Eosinophils # (Auto) 0.1 x10^3/uL (0.0-0.7) Basophils # (Auto) 0.0 x10^3/uL (0.0-0.2) Segmented Neutrophils % 82 % (35-66) Band Neutrophils % 3 % (0-9) Lymphocytes % 9 % (24-48) Monocytes % 5 % (0-10) Eosinophils % 1 % (0-5) Platelet Estimate Decreased (ADEQUATE) Sodium Level 144 mmol/L (136-145) Potassium Level 4.0 mmol/L (3.5-5.1) Chloride Level 110 mmol/L (98-107) Carbon Dioxide Level 24 mmol/L (21-32) Anion Gap 10 (6-14) Blood Urea Nitrogen 60 mg/dL (8-26) Creatinine 1.9 mg/dL (0.7-1.3) Estimated GFR (Cockcroft-Gault) 33.8 Glucose Level 178 mg/dL (70-99) Calcium Level 7.7 mg/dL (8.5-10.1) Magnesium Level 2.5 mg/dL (1.8-2.4) O2 Saturation 98 % (92-99) 98 % (92-99) Arterial Blood pH 7.46 (7.35-7.45) 7.47 (7.35-7.45) Arterial Blood pCO2 at Patient Temp 32 mmHg (35-46) 31 mmHg (35-46) Arterial Blood pO2 at Patient Temp 140 mmHg (65-108) 143 mmHg (65-108) Arterial Blood HCO3 23 mmol/L (21-28) 22 mmol/L (21-28) Arterial Blood Base Excess -1 mmol/L (-3-3) -1 mmol/L (-3-3) FiO2 35 35/vent Laboratory Tests Test 09/27/21 08:00 O2 Saturation 98 % (92-99) Arterial Blood pH 7.47 (7.35-7.45) Arterial Blood pCO2 at Patient Temp 31 mmHg (35-46) Arterial Blood pO2 at Patient Temp 143 mmHg (65-108) Arterial Blood HCO3 22 mmol/L (21-28) Arterial Blood Base Excess -1 mmol/L (-3-3) FiO2 35/vent Medications Current Medications Fentanyl Citrate 30 ml @ 2.5 mls/hr CONT PRN IV SEE PROTOCOL Last administered on 09/24/21at 04:21; Start 09/22/21 at 18:00 Midazolam HCl 100 ml @ 1 mls/hr CONT PRN IV SEE PROTOCOL Last administered on 09/24/21at 04:21; Start 09/22/21 at 18:00 Propofol 100 ml @ 2.244 mls/ hr CONT PRN IV PER PROTOCOL Last administered on 09/22/21at 17:39; Start 09/22/21 at 18:00 Sodium Chloride 500 ml @ 500 mls/hr 1X PRN PRN IV SEE COMMENTS; Start 09/22/21 at 18:00 Atropine Sulfate (ATROPINE 0.5mg SYRINGE) 0.5 mg PRN Q5MIN PRN IV SEE COMMENTS; Start 09/22/21 at 18:00 Famotidine (Pepcid Vial) 20 mg BID IVP Last administered on 09/22/21at 21:58; Start 09/22/21 at 21:00; Stop 09/23/21 at 08:32; Status DC Midazolam HCl (Versed) 2 mg 1X ONCE IV Last administered on 09/22/21at 18:15; Start 09/22/21 at 18:15; Stop 09/22/21 at 18:16; Status DC Lidocaine/ Epinephrine (LIDOCAINE 2%-EPI 1:100,000 multi-dose) 20 ml 1X ONCE IJ Last administered on 09/22/21at 18:17; Start 09/22/21 at 18:15; Stop 09/22/21 at 18:16; Status DC Cefazolin Sodium (Ancef) 1 gm 1X ONCE IVP Last administered on 09/22/21at 18:15; Start 09/22/21 at 18:15; Stop 09/22/21 at 18:16; Status DC Propofol 100 ml @ 2.244 mls/ hr CONT PRN IV PER PROTOCOL; Start 09/22/21 at 18:15; Status UNV Ondansetron HCl (Zofran) 4 mg PRN Q4HRS PRN IVP NAUSEA/VOMITING; Start 09/22/21 at 18:45 Acetaminophen (Tylenol Supp) 650 mg PRN Q6HRS PRN AK MILD PAIN / TEMP > 100.3'F Last administered on 09/25/21at 00:26; Start 09/22/21 at 18:45 Bisacodyl (Dulcolax Supp) 10 mg PRN DAILY PRN AK CONSTIPATION; Start 09/22/21 at 18:45 Promethazine HCl (Phenergan Supp) 12.5 mg PRN Q6HRS PRN AK NAUSEA/VOMITING; Start 09/22/21 at 18:45 Ampicillin Sodium/ Sulbactam Sodium 3 gm/Sodium Chloride 100 ml @ 200 mls/hr Q6HRS IV Last administered on 09/25/21at 12:21; Start 09/22/21 at 18:45; Stop 09/25/21 at 16:21; Status DC Dopamine HCl/ Dextrose 250 ml @ 28.05 mls/ hr CONT PRN IV SEE I/O RECORD Last administered on 09/23/21at 08:44; Start 09/22/21 at 18:45 Lidocaine/ Epinephrine (LIDOCAINE 2%-EPI 1:100,000 multi-dose) 20 ml STK-MED ONCE .ROUTE ; Start 09/22/21 at 18:53; Stop 09/22/21 at 18:53; Status DC Midazolam HCl (Versed) 2 mg STK-MED ONCE .ROUTE ; Start 09/22/21 at 18:53; Stop 09/22/21 at 18:53; Status DC Cefazolin Sodium (Ancef) 1 gm STK-MED ONCE IVP ; Start 09/22/21 at 18:53; Stop 09/22/21 at 18:53; Status DC Fentanyl Citrate (Fentanyl 2ml Vial) 25 mcg PRN Q3HRS PRN IVP SEVERE PAIN 7-10; Start 09/22/21 at 21:30; Status Cancel Famotidine (Pepcid Vial) 20 mg DAILY IVP Last administered on 09/27/21at 08:23; Start 09/23/21 at 09:00 Heparin Sodium (Porcine) (Heparin Sodium) 5,000 unit Q12HR SQ Last administered on 09/23/21at 20:45; Start 09/23/21 at 21:00; Stop 09/23/21 at 22:59; Status DC Norepinephrine Bitartrate 8 mg/ Dextrose 258 ml @ 13.971 mls/ hr CONT PRN IV PER PROTOCOL Last administered on 09/23/21at 22:14; Start 09/23/21 at 11:45 Ampicillin Sodium/ Sulbactam Sodium 3 gm/Sodium Chloride 100 ml @ 200 mls/hr Q12HR IV Last administered on 09/27/21at 08:22; Start 09/25/21 at 21:00 Levetiracetam 500 mg/Dextrose 105 ml @ 420 mls/hr Q12HR IV Last administered on 09/27/21at 08:22; Start 09/26/21 at 04:00 Furosemide (Lasix) 20 mg 1X ONCE IVP Last administered on 09/26/21at 13:15; Start 09/26/21 at 13:15; Stop 09/26/21 at 13:16; Status DC Active Scripts Active Reported Urea 227 Gm Cream..g. 1 Tata TP DAILY 30 Days Crestor (Rosuvastatin Calcium) 40 Mg Tablet 1 Tab PO DAILY Namenda (Memantine Hcl) 10 Mg Tablet 1 Tab PO BID Pantoprazole Sodium (Pantoprazole Sodium) 40 Mg Tablet.dr 40 Mg PO DAILYAC Lisinopril 40 Mg Tablet 0.5 Tab PO DAILY Levothyroxine Sodium 50 Mcg Tablet 1 Tab PO DAILY Xolegel (Ketoconazole) 45 Gm Gel..gram. 1 Tata TP BID 30 Days Isosorbide Mononitrate Er (Isosorbide Mononitrate) 60 Mg Tab.er.24h 1 Tab PO DAILY Hydrophor Ointment (Mineral Oil/Hydrophil Petrolat) 454 Gm Oint...g. 454 Gm TP PRN PRN Zetia (Ezetimibe) 10 Mg Tablet 1 Tab PO DAILY 30 Days Donepezil Hcl 10 Mg Tablet 1 Tab PO DAILY Clopidogrel (Clopidogrel Bisulfate) 75 Mg Tablet 75 Mg PO DAILY Celexa (Citalopram Hydrobromide) 40 Mg Tablet 1 Tab PO DAILY Vitamin D3 (Vitamin D) 25 Mcg Tablet 25 Mcg PO DAILY 1,000 UNITS = 25 MCG Thera Tears (Carboxymethylcellulose Sodium) 15 Ml Drops 1 Drop EACHEYE QID Atenolol 25 Mg Tablet 1 Tab PO DAILY Amlodipine Besylate 5 Mg Tablet 5 Mg PO DAILY Vitals/I & O Vital Sign - Last 24 Hours 09/26/21 09/26/21 09/26/21 09/26/21 13:12 14:30 15:15 15:50 Temp 98.5 98.5 Pulse 69 69 69 Resp 17 16 16 B/P (MAP) 138/55 (82) 158/60 (92) 141/59 (86) Pulse Ox 100 100 100 100 O2 Delivery Ventilator Ventilator Ventilator Ventilator 09/26/21 09/26/21 09/26/21 09/26/21 16:07 16:08 17:20 17:35 Pulse 71 69 Resp 16 18 B/P (MAP) 144/61 (88) 147/56 (86) Pulse Ox 100 100 100 O2 Delivery Mechanical Ventilator Ventilator Ventilator Ventilator 09/26/21 09/26/21 09/26/21 09/26/21 18:10 19:00 20:00 20:00 Temp 98.7 98.7 Pulse 69 68 70 Resp 17 19 24 B/P (MAP) 144/56 (85) 157/59 (91) 159/68 (98) Pulse Ox 100 99 100 O2 Delivery Ventilator Ventilator Mechanical Ventilator Ventilator 09/26/21 09/26/21 09/26/21 09/26/21 20:16 21:00 22:00 22:00 Pulse 68 68 Resp 16 17 B/P (MAP) 149/57 (87) 154/63 (93) Pulse Ox 100 100 100 100 O2 Delivery Ventilator Ventilator Ventilator Ventilator 09/26/21 09/26/21 09/27/21 09/27/21 23:00 23:59 00:00 00:01 Temp 98.7 98.7 Pulse 68 68 Resp 18 18 B/P (MAP) 154/57 (89) 153/59 (90) Pulse Ox 100 100 100 O2 Delivery Ventilator Mechanical Ventilator Ventilator Ventilator 09/27/21 09/27/21 09/27/21 09/27/21 01:00 02:00 02:30 03:00 Pulse 68 68 68 Resp 18 18 17 B/P (MAP) 155/61 (92) 156/59 (91) 147/55 (85) Pulse Ox 100 100 100 100 O2 Delivery Ventilator Ventilator Ventilator Ventilator 09/27/21 09/27/21 09/27/21 09/27/21 04:00 04:00 05:00 05:00 Temp 98.7 98.7 Pulse 68 68 Resp 18 14 B/P (MAP) 156/59 (91) 146/57 (86) Pulse Ox 100 100 100 O2 Delivery Mechanical Ventilator Ventilator Ventilator Ventilator 09/27/21 09/27/21 09/27/21 09/27/21 06:00 07:00 08:00 08:00 Temp 99.4 99.4 Pulse 68 68 73 Resp 14 14 18 B/P (MAP) 135/55 (81) 145/58 (87) 147/58 (87) Pulse Ox 100 100 100 O2 Delivery Ventilator Ventilator Mechanical Ventilator Ventilator 09/27/21 09/27/21 09/27/21 09/27/21 08:20 09:00 10:00 10:00 Pulse 69 70 69 Resp 14 19 18 B/P (MAP) 139/49 (79) 146/58 (87) 146/58 (87) Pulse Ox 100 100 100 100 O2 Delivery Ventilator Ventilator Ventilator Ventilator 09/27/21 09/27/21 09/27/21 09/27/21 10:21 11:00 12:00 12:00 Temp 98.6 98.6 Pulse 69 69 Resp 16 16 B/P (MAP) 128/54 (78) 138/55 (82) Pulse Ox 100 100 100 O2 Delivery Ventilator Ventilator Mechanical Ventilator Ventilator 09/27/21 12:05 Pulse Ox 100 O2 Delivery Ventilator Intake and Output 09/26/21 09/26/21 09/27/21 15:00 23:00 07:00 Intake Total 300 ml 1164 ml 1037 ml Output Total 1020 ml 1150 ml 495 ml Balance -720 ml 14 ml 542 ml Justifications for Admission Chest Pain Indications Respiratory Distress?: Yes Justification for admission: Patient's respiratory distress as indicated by (SOB/tachypnea/abnormal breathing pattern plus hypoxemia/AMS/other evidence of respiratory compromise such as pulmonary edema on chest x-ray) will need inpatient level of care. Serious Diagnosis?: Yes Justification for admission: Chest pain may be indicative of potentially serious diagnosis/diagnoses Please state condition(s) which will require inpatient level of care for further evaluation and management. Other Justification Nutrition Consultation Dietary Evaluation: Recommendations by RD: Dietary education by RD Comments: REC TF: Vital AF @ 20 ml/hr increase 10 ml q 8 hr to a goal rate of 40 ml/hr flushes: 100 ml q 6 hr or per REC ADA/cardiac diet per PMH when able Expected Outcomes/Goals: goal of EN: 60-70% energy needs- met, goal ongoing Malnutrition Findings: Body Fat Depletion (Non Severe: Mild Depletion Weight Status: Underweight ADRIAN PHOENIX MD Sep 27, 2021 12:52
[2021-09-28] VITALS (24 sets, daily range): BP systolic 138–170; BP diastolic 50–70
[2021-09-28 05:33] LABS: BASO # 0.1 x10^3/uL (0.0-0.2); BASO % 1 % (0-3); EOS # 0.1 x10^3/uL (0.0-0.7); EOS % 1 % (0-3); HEMATOCRIT 25.4 % (39.0-53.0); HEMOGLOBIN 8.6 g/dL (13.0-17.5); LYMPH # 0.7 x10^3/uL (1.0-4.8); LYMPH % 10 % (24-48); MEAN CORPUSCULAR HEMOGLOBIN 32 pg (25-35); MEAN CORPUSCULAR HGB CONC 34 g/dL (31-37); MEAN CORPUSCULAR VOLUME 96 fL (79-100); MONO # 0.5 x10^3/uL (0.0-1.1); MONO % 8 % (0-9); NEUT # 5.5 x10^3/uL (1.8-7.7); NEUT % 80 % (31-73); PLATELET COUNT 126 x10^3/uL (140-400); RED BLOOD COUNT 2.64 x10^6/uL (4.30-5.70); RED CELL DISTRIBUTION WIDTH 14.4 % (11.5-14.5); WHITE BLOOD COUNT 6.9 x10^3/uL (4.0-11.0)
[2021-09-28 05:38] LABS: CALCIUM 7.9 mg/dL (8.5-10.1); CREATININE 1.4 mg/dL (0.7-1.3); GFR 48.1; POTASSIUM 3.6 mmol/L (3.5-5.1)
--- NOTE | 2021-09-28 05:51 | PDOC ---
PULMONARY PROGRESS NOTES DATE: 09/28/21 TIME: 05:50 Subjective on vent fio2 35% peep 5 Patient has been off sedation for approximately 5 days a little bit more alert doesn't follow commands moves his head at times Vitals Vital Signs Date Time Temp Pulse Resp B/P (MAP) Pulse Ox O2 Delivery O2 Flow Rate FiO2 09/28/21 04:00 Mechanical Ventilator 09/28/21 04:00 99.8 78 20 153/57 (89) 100 99.8 Comments ros unable to obtain on vent not following commands HEENT: Other (nc at orally intubated nose clear neck no lad no thyromegaly) Lungs: Clear Cardiovascular: S1, S2 Abdomen: Soft Neuro Exam: Alert Extremities: Other (Some edema) Skin: Warm Labs Laboratory Tests Test 09/26/21 08:45 09/27/21 08:00 09/28/21 04:30 O2 Saturation 98 % (92-99) 98 % (92-99) Arterial Blood pH 7.46 (7.35-7.45) 7.47 (7.35-7.45) Arterial Blood pCO2 at Patient Temp 32 mmHg (35-46) 31 mmHg (35-46) Arterial Blood pO2 at Patient Temp 140 mmHg (65-108) 143 mmHg (65-108) Arterial Blood HCO3 23 mmol/L (21-28) 22 mmol/L (21-28) Arterial Blood Base Excess -1 mmol/L (-3-3) -1 mmol/L (-3-3) FiO2 35 35/vent White Blood Count 6.9 x10^3/uL (4.0-11.0) Red Blood Count 2.64 x10^6/uL (4.30-5.70) Hemoglobin 8.6 g/dL (13.0-17.5) Hematocrit 25.4 % (39.0-53.0) Mean Corpuscular Volume 96 fL (79-100) Mean Corpuscular Hemoglobin 32 pg (25-35) Mean Corpuscular Hemoglobin Concent 34 g/dL (31-37) Red Cell Distribution Width 14.4 % (11.5-14.5) Platelet Count 126 x10^3/uL (140-400) Neutrophils (%) (Auto) 80 % (31-73) Lymphocytes (%) (Auto) 10 % (24-48) Monocytes (%) (Auto) 8 % (0-9) Eosinophils (%) (Auto) 1 % (0-3) Basophils (%) (Auto) 1 % (0-3) Neutrophils # (Auto) 5.5 x10^3/uL (1.8-7.7) Lymphocytes # (Auto) 0.7 x10^3/uL (1.0-4.8) Monocytes # (Auto) 0.5 x10^3/uL (0.0-1.1) Eosinophils # (Auto) 0.1 x10^3/uL (0.0-0.7) Basophils # (Auto) 0.1 x10^3/uL (0.0-0.2) Sodium Level 147 mmol/L (136-145) Potassium Level 3.6 mmol/L (3.5-5.1) Chloride Level 113 mmol/L (98-107) Carbon Dioxide Level 26 mmol/L (21-32) Anion Gap 8 (6-14) Blood Urea Nitrogen 50 mg/dL (8-26) Creatinine 1.4 mg/dL (0.7-1.3) Estimated GFR (Cockcroft-Gault) 48.1 Glucose Level 150 mg/dL (70-99) Calcium Level 7.9 mg/dL (8.5-10.1) Laboratory Tests Test 09/27/21 08:00 09/28/21 04:30 O2 Saturation 98 % (92-99) Arterial Blood pH 7.47 (7.35-7.45) Arterial Blood pCO2 at Patient Temp 31 mmHg (35-46) Arterial Blood pO2 at Patient Temp 143 mmHg (65-108) Arterial Blood HCO3 22 mmol/L (21-28) Arterial Blood Base Excess -1 mmol/L (-3-3) FiO2 35/vent White Blood Count 6.9 x10^3/uL (4.0-11.0) Red Blood Count 2.64 x10^6/uL (4.30-5.70) Hemoglobin 8.6 g/dL (13.0-17.5) Hematocrit 25.4 % (39.0-53.0) Mean Corpuscular Volume 96 fL (79-100) Mean Corpuscular Hemoglobin 32 pg (25-35) Mean Corpuscular Hemoglobin Concent 34 g/dL (31-37) Red Cell Distribution Width 14.4 % (11.5-14.5) Platelet Count 126 x10^3/uL (140-400) Neutrophils (%) (Auto) 80 % (31-73) Lymphocytes (%) (Auto) 10 % (24-48) Monocytes (%) (Auto) 8 % (0-9) Eosinophils (%) (Auto) 1 % (0-3) Basophils (%) (Auto) 1 % (0-3) Neutrophils # (Auto) 5.5 x10^3/uL (1.8-7.7) Lymphocytes # (Auto) 0.7 x10^3/uL (1.0-4.8) Monocytes # (Auto) 0.5 x10^3/uL (0.0-1.1) Eosinophils # (Auto) 0.1 x10^3/uL (0.0-0.7) Basophils # (Auto) 0.1 x10^3/uL (0.0-0.2) Sodium Level 147 mmol/L (136-145) Potassium Level 3.6 mmol/L (3.5-5.1) Chloride Level 113 mmol/L (98-107) Carbon Dioxide Level 26 mmol/L (21-32) Anion Gap 8 (6-14) Blood Urea Nitrogen 50 mg/dL (8-26) Creatinine 1.4 mg/dL (0.7-1.3) Estimated GFR (Cockcroft-Gault) 48.1 Glucose Level 150 mg/dL (70-99) Calcium Level 7.9 mg/dL (8.5-10.1) Medications Active Scripts Medications Dose Route/Sig Max Daily Dose Days Date Category Dose Instructions Urea 227 Gm Cream..g. 1 Tata TP DAILY 30 09/23/21 Reported Crestor (Rosuvastatin Calcium) 40 Mg Tablet 1 Tab PO DAILY 09/23/21 Reported Namenda (Memantine Hcl) 10 Mg Tablet 1 Tab PO BID 09/23/21 Reported Pantoprazole Sodium (Pantoprazole Sodium) 40 Mg Tablet.dr 40 Mg PO DAILYAC 09/23/21 Reported Lisinopril 40 Mg Tablet 0.5 Tab PO DAILY 09/23/21 Reported Levothyroxine Sodium 50 Mcg Tablet 1 Tab PO DAILY 09/23/21 Reported Xolegel (Ketoconazole) 45 Gm Gel..gram. 1 Tata TP BID 30 09/23/21 Reported Isosorbide Mononitrate Er (Isosorbide Mononitrate) 60 Mg Tab.er.24h 1 Tab PO DAILY 09/23/21 Reported Hydrophor Ointment (Mineral Oil/Hydrophil Petrolat) 454 Gm Oint...g. 454 Gm TP PRN PRN 09/23/21 Reported Zetia (Ezetimibe) 10 Mg Tablet 1 Tab PO DAILY 30 09/23/21 Reported Donepezil Hcl 10 Mg Tablet 1 Tab PO DAILY 09/23/21 Reported Clopidogrel (Clopidogrel Bisulfate) 75 Mg Tablet 75 Mg PO DAILY 09/23/21 Reported Celexa (Citalopram Hydrobromide) 40 Mg Tablet 1 Tab PO DAILY 09/23/21 Reported Vitamin D3 (Vitamin D) 25 Mcg Tablet 25 Mcg PO DAILY 09/23/21 Reported 1,000 UNITS = 25 MCG Thera Tears (Carboxymethylcellulose Sodium) 15 Ml Drops 1 Drop EACHEYE QID 09/23/21 Reported Atenolol 25 Mg Tablet 1 Tab PO DAILY 09/23/21 Reported Amlodipine Besylate 5 Mg Tablet 5 Mg PO DAILY 09/23/21 Reported Comments cxr reviewed Stable diffuse interstitial infiltrate with suspected trace left pleural effusion. ett ok Impression . IMPRESSION: 1. Acute hypoxemic respiratory failure secondary to complete heart block. 2. 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 3. Acute kidney injury. 4. Elevated liver chemistries. 5. Non-ST segment elevation myocardial infarction. 6. Severe protein malnutrition, present upon admission. 7. Respiratory alkalosis. Minute ventilation adjust 8. Patient does assist ventilator, brainstem function intact 9. Possible seizures Plan . Updated 09/28 cont vent support setting reviewed, not alert enough to do sbt prognosis poor agree w withdrawal of care now partial code nephrology/primary for further discussion on withdrawal of care Continue current support on Keppra abx discussed w rn Updated 09/27 cont vent support setting reviewed, not alert to do sbt prognosis poor agree w withdrawal of care Will defer to nephrology for further discussion on withdrawal of care Continue current support on Keppra abx discussed w rn Updated 09/26 Discussed with RN, pressure support of 5, tidal volumes adequate Will defer to nephrology for further discussion on withdrawal of care Continue current support Started on Keppra Prognosis is poor, I would favor discontinuing mechanical support and allowing natural Updated 09/25 ABG this morning noted Maintain off sedation Possible trial later on today once patient awakened Follow cardiology input 09/24 PLAN: 1. Adjust minute ventilation to normalize pH. 2. Continue pressors for support. 3. Once the patient hemodynamically is stable, we will proceed with spontaneous trial and possibly extubate. 4. Cover bilateral pulmonary infiltrates with possible aspiration with ampicillin. 5. Continue sedation. 6. DVT and GI prophylaxis. I do appreciate the privilege in sharing in the patient's care. OLIVE CAMPBELL MD Sep 28, 2021 05:50
[2021-09-28 07:35] LABS: BASE EXCESS ABG 2 mmol/L (-3-3); HCO3 ABG 25 mmol/L (21-28); PCO2 ABG 33 mmHg (35-46); PO2 ABG 151 mmHg (65-108); SAT O2 ABG 99 % (92-99)
[2021-09-28] MEDS: AMPICILLIN/SULBACTAM 3 GM in IV NORMAL SALINE 100ML 100 ML IV SCH ×3 (07:52→23:57)
[2021-09-28] MEDS: levETIRAcetam 500 MG in IV DEXTROSE 5% 100ML 100 ML IV SCH ×2 (07:53→20:50)
[2021-09-28] MEDS: FAMOTIDINE 20 MG/2 ML VIAL IVP SCH (07:53)
[2021-09-28 08:10] LABS: FIO2 ABG 35/VENT
--- NOTE | 2021-09-28 08:21 | PDOC ---
[employer] PROGRESS NOTE Date of Service DOS: DATE: 09/28/21 TIME: 08:16 Chief Complaint Chief Complaint Acute hypoxic respiratory failure - likely due to aspiration pneumonia from vomiting likely from symptomatic 3rd degree heart block. Will cont vent, wean O2 as tolerated. Unasyn for aspiration pneumonia coverage. Consult pulmonology for vent management assistance PEA arrest - likely from above aspiration event, complicated by 3rd degree heart block. ROSC obtained Third degree heart block - s/p PPM generator change with apparent recovery of heart rate. Cont dopamine. ICU admission Abnormal chest CT - likely due to due to pneumonia Nausea and vomiting - likely from CHB, will treat for pneumonia, will rule out other infectious etiology. IV antiemetics Fall - second fall in a week. If neurologic recovery occurs needs gait testing, though likely this was related to cardiac event Closed head injury - posterior scalp abrasion, local wound care. Monitor neurologic function. Anemia - will check iron studies, likely of chronic disease Thrombocytopenia - unclear etiology, will trend EDWIN - likely vasomotor nephropathy from arrest. Family does not know of any history of CKD, will order [facility] records Lactic acidosis - likely due to hypoxia, will trend Transaminitis - likely related to shock liver, will monitor Elevated troponin - demand ischemia from 3rd degree heart block, likely, will trend out. HTN - will add back home meds as BP allows HLD - statin when taking PO History of Present Illness History of Present Illness Mr Cerda is an 86-year-old male with PMHx HTN, HLD s/p PPM who presented to [place] [facility] in [place] via EMS after a PEA cardiac arrest. Per his son, he was at home and in the presence of son and son-in-law when he was observed actively choking and subsequently falling on the floor with significant amount of emesis that was nonbloody and nonbilious in nature. Son reports vomit with recently ingested food and laying his father on his side and cleaning out his mouth while son-in-law called EMS. On EMS arrival ~3 minutes later, patient was unresponsive and cyanotic and they intubated. En-route patient was found to be pulseless in PEA and appropriate ACLS measures were followed with application of Howard device for chest compressions, and per report had a total of x2 epinephrine administered via left tibial IO. After approximately 5 minutes ROSC was obtained. In ED was noted unresponsive with pinpoint pupils and GCS 3 with no purposeful movements. Per EMS report and son the patient takes Plavix, lisinopril, rosuvastatin and citalopram at home. He has a pacemaker per son, which was placed in [place] over 10 years ago, and the son says he follows at [facility], doesn't know about pacer follow up. Per son he fell 4 days prior and was seen for [facility], noted on his occiput. Family notes he has been more weak than usual over past 72 hours, no travel or sick contacts. Is fully vaccinated against COVID 19. EKG appeared with third-degree heart block at 42 bpm, left axis deviation, T wave inversion noted in lead I, III, V2-6, no STEMI Vitals obtained concerning for marked bradycardia and no respiratory effort Labs with WBC 9.1, Hb 11.4, platelets 128, ABG 7.2 459 on 100% FiO2, rapid COVID-19 negative, NA 137, K4.2, BUN 50, CR 2, glucose 247, lactic acid 8.6, calcium 8.6, bilirubin 0.6, AST 131, ALT 157, alkaline phosphatase 90, ammonia 25, albumin 3, troponin 0.134, INR 1.1, urinalysis bland. CT head and neck with no acute abnormalities. CT chest with bibasilar infiltrates and NGT and ETT in good positioning. special investigation unit investigator concerning for third-degree heart block, with rate in the 20s, therefore 1 mg epinephrine administered with minimal improvement in HR, then 1 mg atropine without significant improvement, then dopamine gtt without sustained improvement. 3 L IV fluid administered and unasyn for aspiration pneumonitis. Ultimately was responsive to transcutaneous pacing and after discussion with cardiology he was transferred to [facility] for further care. To cardiac cath lab manager prior to my assessment, had pacemaker generator replaced emergently. Seen in ICU. Discussed with son bedside. 09/23: Afebrile, on vent with FiO2 50%, PEEP 5. Continue dopamine gtt. We will continue Unasyn for aspiration pneumonia. Chest x-ray showed suspected partially consolidated left lower lobe infiltrate superimposed on right lower and bilateral upper lobe multifocal interstitial infiltrate.. Critical care time 30 minutes spent reviewing charts, general labs, reviewing imaging, and discussion with RN. 09/24: Afebrile. On vent with FiO2 40%, PEEP 5. Remains on pressor support. Off dopamine. Will continue Unasyn for pneumonia. Continue supportive care, continue to wean off vent. Critical care time 30 minutes spent reviewing charts, general labs, reviewing imaging, discussion with Dr. Mcdaniel, and discussion with RN. 09/25: Low-grade fever overnight, T-max 100.6 F. On vent with FiO2 35%, PEEP 5. Chest x-ray yesterday showed diffuse increased interstitial opacity likely due to interstitial infiltrate. Continue IV antibiotics. He has been off sedation for the past 24 hours. Platelets have steadily dropped; platelets 89 today. I discussion with daughter and son-in-law by phone about concerns for worsening bruising and, cytopenia. They are agreeable to no chest compressions, as to not cause any further damage that may lead to prolonged intubation. We will continue to wean off ventilator. 30 minutes critical care time spent reviewing charts, reviewing labs, reviewing imaging, discussion with RN, and discussion with Dr. Ortiz. 09/26: Afebrile. On vent with FiO2 35%, PEEP 5. Chest x-ray today showing stable diffuse interstitial infiltrate. Platelets [address] Brand was consulted yesterday; he is discussed with family the likely poor prognosis. Sister wants to fly in from [place] to see him. Family would like DNR but chemical code; son-in-law will discuss with the rest of family. Critical care time 30 minutes spent reviewing chart, reviewing labs, reviewing imaging, discussing with Dr. Ortiz. 09/27: Afebrile; on vent with FiO2 50%, PEEP 5. Off sedation for 72 hours. Some spontaneous movements noted this morning. I believe family is flying in from [place] to see him prior to making full DNR; chemical code. Critical care time 30 minutes spent reviewing charts, general labs, reviewing imaging, and discussion with RN. 09/28: Febrile overnight, T-max 102.0 F. Vitals/I&O Vitals/I&O: Vital Signs Date Time Temp Pulse Resp B/P (MAP) Pulse Ox O2 Delivery O2 Flow Rate FiO2 09/28/21 07:12 100 Ventilator 09/28/21 07:00 68 22 156/70 (98) 09/28/21 04:00 99.8 99.8 I & O 09/27/21 09/27/21 09/28/21 15:00 23:00 07:00 Intake Total 899 ml 963 ml 1230.07 ml Output Total 775 ml 660 ml 640 ml Balance 124 ml 303 ml 590.07 ml Physical Exam General: Other (Intubated on a ventilator.) Heart: Regular rate Lungs: Clear Abdomen: Normal bowel sounds Extremities: No clubbing, No cyanosis, No edema, Normal pulses, No tender ness/swelling Skin: Other (Extensive bruising to anterior chest wall) Labs Labs: Laboratory Tests Test 09/28/21 04:30 09/28/21 07:15 White Blood Count 6.9 x10^3/uL (4.0-11.0) Red Blood Count 2.64 x10^6/uL (4.30-5.70) Hemoglobin 8.6 g/dL (13.0-17.5) Hematocrit 25.4 % (39.0-53.0) Mean Corpuscular Volume 96 fL (79-100) Mean Corpuscular Hemoglobin 32 pg (25-35) Mean Corpuscular Hemoglobin Concent 34 g/dL (31-37) Red Cell Distribution Width 14.4 % (11.5-14.5) Platelet Count 126 x10^3/uL (140-400) Neutrophils (%) (Auto) 80 % (31-73) Lymphocytes (%) (Auto) 10 % (24-48) Monocytes (%) (Auto) 8 % (0-9) Eosinophils (%) (Auto) 1 % (0-3) Basophils (%) (Auto) 1 % (0-3) Neutrophils # (Auto) 5.5 x10^3/uL (1.8-7.7) Lymphocytes # (Auto) 0.7 x10^3/uL (1.0-4.8) Monocytes # (Auto) 0.5 x10^3/uL (0.0-1.1) Eosinophils # (Auto) 0.1 x10^3/uL (0.0-0.7) Basophils # (Auto) 0.1 x10^3/uL (0.0-0.2) Sodium Level 147 mmol/L (136-145) Potassium Level 3.6 mmol/L (3.5-5.1) Chloride Level 113 mmol/L (98-107) Carbon Dioxide Level 26 mmol/L (21-32) Anion Gap 8 (6-14) Blood Urea Nitrogen 50 mg/dL (8-26) Creatinine 1.4 mg/dL (0.7-1.3) Estimated GFR (Cockcroft-Gault) 48.1 Glucose Level 150 mg/dL (70-99) Calcium Level 7.9 mg/dL (8.5-10.1) O2 Saturation 99 % (92-99) Arterial Blood pH 7.50 (7.35-7.45) Arterial Blood pCO2 at Patient Temp 33 mmHg (35-46) Arterial Blood pO2 at Patient Temp 151 mmHg (65-108) Arterial Blood HCO3 25 mmol/L (21-28) Arterial Blood Base Excess 2 mmol/L (-3-3) FiO2 35/vent Comment Review of Relevant I have reviewed the following items ivania (where applicable) has been applied. Justifications for Admission Chest Pain Indications Respiratory Distress?: Yes Justification for admission: Patient's respiratory distress as indicated by (SOB/tachypnea/abnormal breathing pattern plus hypoxemia/AMS/other evidence of respiratory compromise such as pulmonary edema on chest x-ray) will need inpatient level of care. Serious Diagnosis?: Yes Justification for admission: Chest pain may be indicative of potentially serious diagnosis/diagnoses Please state condition(s) which will require inpatient level of care for further evaluation and management. Other Justification DALLAS CISNEROS MD Sep 28, 2021 08:21
--- NOTE | 2021-09-28 09:47 | RAD ---
EXAM: Chest, single view. HISTORY: Fever. COMPARISON: 09/26/2021 FINDINGS: A frontal view of the chest is obtained. There has been decrease in previously demonstrated diffuse increased interstitial opacity. There is left lower lobe linear atelectasis or interstitial infiltrate. There is no consolidation, pleural effusion or pneumothorax. There is a stable cardiac si lhouette and evidence of prior CABG. There is an endotracheal tube within the mid trachea. There is n asogastric tube within the stomach. There is a right cardiac pacemaker in expected position. IMPRESSION: 1. Resolution of previously demonstrated diffuse interstitial prominence. There is interstitial left lower lobe atelectasis or interstitial infiltrate. 2. Support lines and tubes, described above. Electronically signed by: Naty Noyola MD (09/28/2021 9:44 AM) [id number]
--- NOTE | 2021-09-28 16:24 | PDOC ---
PROGRESS NOTES Date of Service DATE: 09/28/21 TIME: 16:23 Subjective Subjective Patient seen and examined Objective Objective Vital Signs Date Time Temp Pulse Resp B/P (MAP) Pulse Ox O2 Delivery O2 Flow Rate FiO2 09/28/21 16:02 100 Ventilator 09/28/21 15:00 69 20 163/68 (99) 09/28/21 12:00 99.0 99.0 Intake and Output 09/28/21 07:00 Intake Total 3092.07 ml Output Total 2075 ml Balance 1017.07 ml Intake IV Total 1102.07 ml Tube Feeding 1990 ml Output Urine Total 2075 ml Gastric Drainage Total 0 ml Physical Exam Abdomen: Normal bowel sounds Heart: Regular rate General: Other (Intubated on a ventilator) Lungs: Other (Mildly decreased breath sounds) Assessment Assessment Cardiac arrest due to pacemaker battery depletion. SSS s/p PPM. s/p generator change. Continues with AV pacing NSTEMI - type 2. Cardiomyopathy; echo with LVEF 45%. Continuing present treatment. EDWIN: Lab improving. Cardiogenic shock: BP improved. Acute respiratory failure due to #1. Madonna on a ventilator. Probable aspiration PNA; febrile. On antibiotics. Elevated LFTs, shock liver; improving Anoxic Encephalopathy; off sedation. Followed by neurology Comment Review of Relevant I have reviewed the following items ivania (where applicable) has been applied. Labs Laboratory Tests Test 09/27/21 08:00 09/28/21 04:30 09/28/21 07:15 09/28/21 11:00 O2 Saturation 98 % (92-99) 99 % (92-99) Arterial Blood pH 7.47 (7.35-7.45) 7.50 (7.35-7.45) Arterial Blood pCO2 at Patient Temp 31 mmHg (35-46) 33 mmHg (35-46) Arterial Blood pO2 at Patient Temp 143 mmHg (65-108) 151 mmHg (65-108) Arterial Blood HCO3 22 mmol/L (21-28) 25 mmol/L (21-28) Arterial Blood Base Excess -1 mmol/L (-3-3) 2 mmol/L (-3-3) FiO2 35/vent 35/vent White Blood Count 6.9 x10^3/uL (4.0-11.0) Red Blood Count 2.64 x10^6/uL (4.30-5.70) Hemoglobin 8.6 g/dL (13.0-17.5) Hematocrit 25.4 % (39.0-53.0) Mean Corpuscular Volume 96 fL (79-100) Mean Corpuscular Hemoglobin 32 pg (25-35) Mean Corpuscular Hemoglobin Concent 34 g/dL (31-37) Red Cell Distribution Width 14.4 % (11.5-14.5) Platelet Count 126 x10^3/uL (140-400) Neutrophils (%) (Auto) 80 % (31-73) Lymphocytes (%) (Auto) 10 % (24-48) Monocytes (%) (Auto) 8 % (0-9) Eosinophils (%) (Auto) 1 % (0-3) Basophils (%) (Auto) 1 % (0-3) Neutrophils # (Auto) 5.5 x10^3/uL (1.8-7.7) Lymphocytes # (Auto) 0.7 x10^3/uL (1.0-4.8) Monocytes # (Auto) 0.5 x10^3/uL (0.0-1.1) Eosinophils # (Auto) 0.1 x10^3/uL (0.0-0.7) Basophils # (Auto) 0.1 x10^3/uL (0.0-0.2) Sodium Level 147 mmol/L (136-145) Potassium Level 3.6 mmol/L (3.5-5.1) Chloride Level 113 mmol/L (98-107) Carbon Dioxide Level 26 mmol/L (21-32) Anion Gap 8 (6-14) Blood Urea Nitrogen 50 mg/dL (8-26) Creatinine 1.4 mg/dL (0.7-1.3) Estimated GFR (Cockcroft-Gault) 48.1 Glucose Level 150 mg/dL (70-99) Calcium Level 7.9 mg/dL (8.5-10.1) SARS-CoV-2 RNA (NORY) Negative (Negative) SARS-CoV-2 Antigen (Rapid) Negative (NEGATIVE) Laboratory Tests Test 09/28/21 04:30 09/28/21 07:15 09/28/21 11:00 White Blood Count 6.9 x10^3/uL (4.0-11.0) Red Blood Count 2.64 x10^6/uL (4.30-5.70) Hemoglobin 8.6 g/dL (13.0-17.5) Hematocrit 25.4 % (39.0-53.0) Mean Corpuscular Volume 96 fL (79-100) Mean Corpuscular Hemoglobin 32 pg (25-35) Mean Corpuscular Hemoglobin Concent 34 g/dL (31-37) Red Cell Distribution Width 14.4 % (11.5-14.5) Platelet Count 126 x10^3/uL (140-400) Neutrophils (%) (Auto) 80 % (31-73) Lymphocytes (%) (Auto) 10 % (24-48) Monocytes (%) (Auto) 8 % (0-9) Eosinophils (%) (Auto) 1 % (0-3) Basophils (%) (Auto) 1 % (0-3) Neutrophils # (Auto) 5.5 x10^3/uL (1.8-7.7) Lymphocytes # (Auto) 0.7 x10^3/uL (1.0-4.8) Monocytes # (Auto) 0.5 x10^3/uL (0.0-1.1) Eosinophils # (Auto) 0.1 x10^3/uL (0.0-0.7) Basophils # (Auto) 0.1 x10^3/uL (0.0-0.2) Sodium Level 147 mmol/L (136-145) Potassium Level 3.6 mmol/L (3.5-5.1) Chloride Level 113 mmol/L (98-107) Carbon Dioxide Level 26 mmol/L (21-32) Anion Gap 8 (6-14) Blood Urea Nitrogen 50 mg/dL (8-26) Creatinine 1.4 mg/dL (0.7-1.3) Estimated GFR (Cockcroft-Gault) 48.1 Glucose Level 150 mg/dL (70-99) Calcium Level 7.9 mg/dL (8.5-10.1) O2 Saturation 99 % (92-99) Arterial Blood pH 7.50 (7.35-7.45) Arterial Blood pCO2 at Patient Temp 33 mmHg (35-46) Arterial Blood pO2 at Patient Temp 151 mmHg (65-108) Arterial Blood HCO3 25 mmol/L (21-28) Arterial Blood Base Excess 2 mmol/L (-3-3) FiO2 35/vent SARS-CoV-2 RNA (NORY) Negative (Negative) SARS-CoV-2 Antigen (Rapid) Negative (NEGATIVE) Medications Current Medications Fentanyl Citrate 30 ml @ 2.5 mls/hr CONT PRN IV SEE PROTOCOL Last administered on 09/24/21at 04:21; Start 09/22/21 at 18:00 Midazolam HCl 100 ml @ 1 mls/hr CONT PRN IV SEE PROTOCOL Last administered on 09/24/21at 04:21; Start 09/22/21 at 18:00 Propofol 100 ml @ 2.244 mls/ hr CONT PRN IV PER PROTOCOL Last administered on 09/22/21at 17:39; Start 09/22/21 at 18:00 Sodium Chloride 500 ml @ 500 mls/hr 1X PRN PRN IV SEE COMMENTS; Start 09/22/21 at 18:00 Atropine Sulfate (ATROPINE 0.5mg SYRINGE) 0.5 mg PRN Q5MIN PRN IV SEE COMMENTS; Start 09/22/21 at 18:00 Famotidine (Pepcid Vial) 20 mg BID IVP Last administered on 09/22/21at 21:58; Start 09/22/21 at 21:00; Stop 09/23/21 at 08:32; Status DC Midazolam HCl (Versed) 2 mg 1X ONCE IV Last administered on 09/22/21at 18:15; Start 09/22/21 at 18:15; Stop 09/22/21 at 18:16; Status DC Lidocaine/ Epinephrine (LIDOCAINE 2%-EPI 1:100,000 multi-dose) 20 ml 1X ONCE IJ Last administered on 09/22/21at 18:17; Start 09/22/21 at 18:15; Stop 09/22/21 at 18:16; Status DC Cefazolin Sodium (Ancef) 1 gm 1X ONCE IVP Last administered on 09/22/21at 18:15; Start 09/22/21 at 18:15; Stop 09/22/21 at 18:16; Status DC Propofol 100 ml @ 2.244 mls/ hr CONT PRN IV PER PROTOCOL; Start 09/22/21 at 18:15; Status UNV Ondansetron HCl (Zofran) 4 mg PRN Q4HRS PRN IVP NAUSEA/VOMITING; Start 09/22/21 at 18:45 Acetaminophen (Tylenol Supp) 650 mg PRN Q6HRS PRN [place] MILD PAIN / TEMP > 100.3'F Last administered on 09/25/21at 00:26; Start 09/22/21 at 18:45 Bisacodyl (Dulcolax Supp) 10 mg PRN DAILY PRN [place] CONSTIPATION; Start 09/22/21 at 18:45 Promethazine HCl (Phenergan Supp) 12.5 mg PRN Q6HRS PRN [place] NAUSEA/VOMITING; Start 09/22/21 at 18:45 Ampicillin Sodium/ Sulbactam Sodium 3 gm/Sodium Chloride 100 ml @ 200 mls/hr Q6HRS IV Last administered on 09/25/21at 12:21; Start 09/22/21 at 18:45; Stop 09/25/21 at 16:21; Status DC Dopamine HCl/ Dextrose 250 ml @ 28.05 mls/ hr CONT PRN IV SEE I/O RECORD Last administered on 09/23/21at 08:44; Start 09/22/21 at 18:45 Lidocaine/ Epinephrine (LIDOCAINE 2%-EPI 1:100,000 multi-dose) 20 ml STK-MED ONCE .ROUTE ; Start 09/22/21 at 18:53; Stop 09/22/21 at 18:53; Status DC Midazolam HCl (Versed) 2 mg STK-MED ONCE .ROUTE ; Start 09/22/21 at 18:53; Stop 09/22/21 at 18:53; Status DC Cefazolin Sodium (Ancef) 1 gm STK-MED ONCE IVP ; Start 09/22/21 at 18:53; Stop 09/22/21 at 18:53; Status DC Fentanyl Citrate (Fentanyl 2ml Vial) 25 mcg PRN Q3HRS PRN IVP SEVERE PAIN 7-10; Start 09/22/21 at 21:30; Status Cancel Famotidine (Pepcid Vial) 20 mg DAILY IVP Last administered on 09/28/21at 07:53; Start 09/23/21 at 09:00 Heparin Sodium (Porcine) (Heparin Sodium) 5,000 unit Q12HR SQ Last administered on 09/23/21at 20:45; Start 09/23/21 at 21:00; Stop 09/23/21 at 22:59; Status DC Norepinephrine Bitartrate 8 mg/ Dextrose 258 ml @ 13.971 mls/ hr CONT PRN IV PER PROTOCOL Last administered on 09/23/21at 22:14; Start 09/23/21 at 11:45 Ampicillin Sodium/ Sulbactam Sodium 3 gm/Sodium Chloride 100 ml @ 200 mls/hr Q12HR IV Last administered on 09/28/21at 07:52; Start 09/25/21 at 21:00; Stop 09/28/21 at 13:20; Status DC Levetiracetam 500 mg/Dextrose 105 ml @ 420 mls/hr Q12HR IV Last administered on 09/28/21at 07:53; Start 09/26/21 at 04:00 Furosemide (Lasix) 20 mg 1X ONCE IVP Last administered on 09/26/21at 13:15; Start 09/26/21 at 13:15; Stop 09/26/21 at 13:16; Status DC Ampicillin Sodium/ Sulbactam Sodium 3 gm/Sodium Chloride 100 ml @ 200 mls/hr Q6HRS IV ; Start 09/28/21 at 18:00 Active Scripts Active Reported Urea 227 Gm Cream..g. 1 Tata TP DAILY 30 Days Crestor (Rosuvastatin Calcium) 40 Mg Tablet 1 Tab PO DAILY Namenda (Memantine Hcl) 10 Mg Tablet 1 Tab PO BID Pantoprazole Sodium (Pantoprazole Sodium) 40 Mg Tablet.dr 40 Mg PO DAILYAC Lisinopril 40 Mg Tablet 0.5 Tab PO DAILY Levothyroxine Sodium 50 Mcg Tablet 1 Tab PO DAILY Xolegel (Ketoconazole) 45 Gm Gel..gram. 1 Tata TP BID 30 Days Isosorbide Mononitrate Er (Isosorbide Mononitrate) 60 Mg Tab.er.24h 1 Tab PO DAILY Hydrophor Ointment (Mineral Oil/Hydrophil Petrolat) 454 Gm Oint...g. 454 Gm TP PRN PRN Zetia (Ezetimibe) 10 Mg Tablet 1 Tab PO DAILY 30 Days Donepezil Hcl 10 Mg Tablet 1 Tab PO DAILY Clopidogrel (Clopidogrel Bisulfate) 75 Mg Tablet 75 Mg PO DAILY Celexa (Citalopram Hydrobromide) 40 Mg Tablet 1 Tab PO DAILY Vitamin D3 (Vitamin D) 25 Mcg Tablet 25 Mcg PO DAILY 1,000 UNITS = 25 MCG Thera Tears (Carboxymethylcellulose Sodium) 15 Ml Drops 1 Drop EACHEYE QID Atenolol 25 Mg Tablet 1 Tab PO DAILY Amlodipine Besylate 5 Mg Tablet 5 Mg PO DAILY Vitals/I & O Vital Sign - Last 24 Hours 09/27/21 09/27/21 09/27/21 09/27/21 17:00 17:28 18:00 19:00 Pulse 69 69 68 Resp 16 17 18 B/P (MAP) 143/57 (85) 148/59 (88) 143/56 (85) Pulse Ox 100 99 100 100 O2 Delivery Ventilator Ventilator Ventilator Ventilator 09/27/21 09/27/21 09/27/21 09/27/21 20:00 20:00 20:28 21:00 Temp 102.0 102.0 Pulse 72 72 Resp 20 18 B/P (MAP) 145/54 (84) 152/61 (91) Pulse Ox 100 100 100 O2 Delivery Ventilator Mechanical Ventilator Ventilator Ventilator 09/27/21 09/27/21 09/27/21 09/28/21 22:00 23:00 23:36 00:00 Temp 99.9 99.9 Pulse 76 72 72 Resp 19 16 16 B/P (MAP) 156/56 (89) 133/53 (79) 141/50 (80) Pulse Ox 100 100 100 100 O2 Delivery Ventilator Ventilator Ventilator Ventilator 09/28/21 09/28/21 09/28/21 09/28/21 00:00 01:00 02:00 02:17 Pulse 70 75 Resp 19 24 B/P (MAP) 160/57 (91) 168/70 (102) Pulse Ox 100 100 100 O2 Delivery Mechanical Ventilator Ventilator Ventilator Ventilator 09/28/21 09/28/21 09/28/21 09/28/21 03:00 04:00 04:00 05:00 Temp 99.8 99.8 Pulse 70 78 72 Resp 20 20 18 B/P (MAP) 158/60 (92) 153/57 (89) 149/63 (91) Pulse Ox 100 100 100 O2 Delivery Ventilator Ventilator Mechanical Ventilator Ventilator 09/28/21 09/28/21 09/28/21 09/28/21 05:32 06:00 07:00 07:12 Pulse 70 68 Resp 20 22 B/P (MAP) 149/60 (89) 156/70 (98) Pulse Ox 100 100 100 100 O2 Delivery Ventilator Ventilator Ventilator Ventilator 09/28/21 09/28/21 09/28/21 09/28/21 08:00 08:00 09:00 10:00 Temp 100.0 100.0 Pulse 78 77 73 Resp 20 20 20 B/P (MAP) 164/67 (99) 160/63 (95) 157/67 (97) Pulse Ox 100 100 100 O2 Delivery Mechanical Ventilator Ventilator Ventilator Ventilator 09/28/21 09/28/21 09/28/21 09/28/21 10:12 11:00 11:39 12:00 Pulse 72 Resp 17 B/P (MAP) 154/63 (93) Pulse Ox 100 100 100 O2 Delivery Ventilator Ventilator Ventilator Mechanical Ventilator 09/28/21 09/28/21 09/28/21 09/28/21 12:00 12:58 13:00 14:00 Temp 99.0 99.0 Pulse 74 71 71 Resp 21 18 19 B/P (MAP) 138/63 (88) 170/65 (100) 150/59 (89) Pulse Ox 100 100 100 100 O2 Delivery Ventilator Ventilator Ventilator Ventilator 09/28/21 09/28/21 09/28/21 15:00 16:00 16:02 Pulse 69 Resp 20 B/P (MAP) 163/68 (99) Pulse Ox 100 100 O2 Delivery Ventilator Mechanical Ventilator Ventilator Intake and Output 09/27/21 09/27/21 09/28/21 15:00 23:00 07:00 Intake Total 899 ml 963 ml 1230.07 ml Output Total 775 ml 660 ml 640 ml Balance 124 ml 303 ml 590.07 ml Justifications for Admission Chest Pain Indications Respiratory Distress?: Yes Justification for admission: Patient's respiratory distress as indicated by (SOB/tachypnea/abnormal breathing pattern plus hypoxemia/AMS/other evidence of respiratory compromise such as pulmonary edema on chest x-ray) will need inpatient level of care. Serious Diagnosis?: Yes Justification for admission: Chest pain may be indicative of potentially serious diagnosis/diagnoses Please state condition(s) which will require inpatient level of care for further evaluation and management. Other Justification Nutrition Consultation Dietary Evaluation: Recommendations by RD: Dietary education by RD Comments: REC TF: Vital AF @ 20 ml/hr increase 10 ml q 8 hr to a goal rate of 40 ml/hr flushes: 100 ml q 6 hr or per REC ADA/cardiac diet per PMH when able Expected Outcomes/Goals: goal of EN: 60-70% energy needs- met, goal ongoing Malnutrition Findings: Body Fat Depletion (Non Severe: Mild Depletion Weight Status: Underweight ADRIAN PHOENIX MD Sep 28, 2021 16:24
[2021-09-29] VITALS (24 sets, daily range): BP systolic 118–169; BP diastolic 49–76
[2021-09-29] MEDS: AMPICILLIN/SULBACTAM 3 GM in IV NORMAL SALINE 100ML 100 ML IV SCH ×3 (05:56→18:12)
--- NOTE | 2021-09-29 08:40 | PDOC ---
PULMONARY PROGRESS NOTES DATE: 09/29/21 TIME: 08:40 Subjective Patient has not had any sedation for the over 5 days No response to sternal rub Vitals Vital Signs Date Time Temp Pulse Resp B/P (MAP) Pulse Ox O2 Delivery O2 Flow Rate FiO2 09/29/21 06:00 75 21 154/57 (89) 100 Ventilator 09/29/21 04:00 98.4 98.4 Comments ros unable to obtain on vent not following commands HEENT: Other (nc at orally intubated nose clear neck no lad no thyromegaly) Lungs: Clear Cardiovascular: S1, S2 Abdomen: Soft Neuro Exam: Alert Extremities: Other (Some edema) Skin: Warm Labs Laboratory Tests Test 09/28/21 04:30 09/28/21 07:15 09/28/21 11:00 White Blood Count 6.9 x10^3/uL (4.0-11.0) Red Blood Count 2.64 x10^6/uL (4.30-5.70) Hemoglobin 8.6 g/dL (13.0-17.5) Hematocrit 25.4 % (39.0-53.0) Mean Corpuscular Volume 96 fL (79-100) Mean Corpuscular Hemoglobin 32 pg (25-35) Mean Corpuscular Hemoglobin Concent 34 g/dL (31-37) Red Cell Distribution Width 14.4 % (11.5-14.5) Platelet Count 126 x10^3/uL (140-400) Neutrophils (%) (Auto) 80 % (31-73) Lymphocytes (%) (Auto) 10 % (24-48) Monocytes (%) (Auto) 8 % (0-9) Eosinophils (%) (Auto) 1 % (0-3) Basophils (%) (Auto) 1 % (0-3) Neutrophils # (Auto) 5.5 x10^3/uL (1.8-7.7) Lymphocytes # (Auto) 0.7 x10^3/uL (1.0-4.8) Monocytes # (Auto) 0.5 x10^3/uL (0.0-1.1) Eosinophils # (Auto) 0.1 x10^3/uL (0.0-0.7) Basophils # (Auto) 0.1 x10^3/uL (0.0-0.2) Sodium Level 147 mmol/L (136-145) Potassium Level 3.6 mmol/L (3.5-5.1) Chloride Level 113 mmol/L (98-107) Carbon Dioxide Level 26 mmol/L (21-32) Anion Gap 8 (6-14) Blood Urea Nitrogen 50 mg/dL (8-26) Creatinine 1.4 mg/dL (0.7-1.3) Estimated GFR (Cockcroft-Gault) 48.1 Glucose Level 150 mg/dL (70-99) Calcium Level 7.9 mg/dL (8.5-10.1) O2 Saturation 99 % (92-99) Arterial Blood pH 7.50 (7.35-7.45) Arterial Blood pCO2 at Patient Temp 33 mmHg (35-46) Arterial Blood pO2 at Patient Temp 151 mmHg (65-108) Arterial Blood HCO3 25 mmol/L (21-28) Arterial Blood Base Excess 2 mmol/L (-3-3) FiO2 35/vent SARS-CoV-2 RNA (NORY) Negative (Negative) SARS-CoV-2 Antigen (Rapid) Negative (NEGATIVE) Laboratory Tests Test 09/28/21 11:00 SARS-CoV-2 RNA (NORY) Negative (Negative) SARS-CoV-2 Antigen (Rapid) Negative (NEGATIVE) Medications Active Scripts Medications Dose Route/Sig Max Daily Dose Days Date Category Dose Instructions Urea 227 Gm Cream..g. 1 Tata TP DAILY 30 09/23/21 Reported Crestor (Rosuvastatin Calcium) 40 Mg Tablet 1 Tab PO DAILY 09/23/21 Reported Namenda (Memantine Hcl) 10 Mg Tablet 1 Tab PO BID 09/23/21 Reported Pantoprazole Sodium (Pantoprazole Sodium) 40 Mg Tablet.dr 40 Mg PO DAILYAC 09/23/21 Reported Lisinopril 40 Mg Tablet 0.5 Tab PO DAILY 09/23/21 Reported Levothyroxine Sodium 50 Mcg Tablet 1 Tab PO DAILY 09/23/21 Reported Xolegel (Ketoconazole) 45 Gm Gel..gram. 1 Tata TP BID 30 09/23/21 Reported Isosorbide Mononitrate Er (Isosorbide Mononitrate) 60 Mg Tab.er.24h 1 Tab PO DAILY 09/23/21 Reported Hydrophor Ointment (Mineral Oil/Hydrophil Petrolat) 454 Gm Oint...g. 454 Gm TP PRN PRN 09/23/21 Reported Zetia (Ezetimibe) 10 Mg Tablet 1 Tab PO DAILY 30 09/23/21 Reported Donepezil Hcl 10 Mg Tablet 1 Tab PO DAILY 09/23/21 Reported Clopidogrel (Clopidogrel Bisulfate) 75 Mg Tablet 75 Mg PO DAILY 09/23/21 Reported Celexa (Citalopram Hydrobromide) 40 Mg Tablet 1 Tab PO DAILY 09/23/21 Reported Vitamin D3 (Vitamin D) 25 Mcg Tablet 25 Mcg PO DAILY 09/23/21 Reported 1,000 UNITS = 25 MCG Thera Tears (Carboxymethylcellulose Sodium) 15 Ml Drops 1 Drop EACHEYE QID 09/23/21 Reported Atenolol 25 Mg Tablet 1 Tab PO DAILY 09/23/21 Reported Amlodipine Besylate 5 Mg Tablet 5 Mg PO DAILY 09/23/21 Reported Comments cxr reviewed Stable diffuse interstitial infiltrate with suspected trace left pleural effusion. ett ok Impression . IMPRESSION: 1. Acute hypoxemic respiratory failure secondary to complete heart block. 2. 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 3. Acute kidney injury. 4. Elevated liver chemistries. 5. Non-ST segment elevation myocardial infarction. 6. Severe protein malnutrition, present upon admission. 7. Respiratory alkalosis. Minute ventilation adjust 8. Patient does assist ventilator, brainstem function intact 9. Possible seizures Plan . Updated 09/29 Awaiting family decision on withdrawal of care Appreciate Dr. Lara's input Discussed with RN updated 09/28 cont vent support setting reviewed, not alert enough to do sbt prognosis poor agree w withdrawal of care now partial code nephrology/primary for further discussion on withdrawal of care Continue current support on Keppra abx discussed w rn Updated 09/27 cont vent support setting reviewed, not alert to do sbt prognosis poor agree w withdrawal of care Will defer to nephrology for further discussion on withdrawal of care Continue current support on Keppra abx discussed w CT Cisse MD Sep 29, 2021 08:40
[2021-09-29 09:10] LABS: BASE EXCESS ABG 2 mmol/L (-3-3); HCO3 ABG 24 mmol/L (21-28); PCO2 ABG 30 mmHg (35-46); PO2 ABG 137 mmHg (65-108); SAT O2 ABG 98 % (92-99)
[2021-09-29 09:12] LABS: FIO2 ABG 35
[2021-09-29] MEDS: levETIRAcetam 500 MG in IV DEXTROSE 5% 100ML 100 ML IV SCH ×2 (09:32→21:03)
[2021-09-29] MEDS: FAMOTIDINE 20 MG/2 ML VIAL IVP SCH (09:33)
[2021-09-29] MEDS: ACETAMINOPHEN 650 MG/20.3 ML SOLUTION. PEG PRN ×2 (09:51→21:07)
--- NOTE | 2021-09-29 10:05 | PDOC ---
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 I have seen no improvement during the. 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 CN: no focal findings. Muscle tone: normal. Muscle strength: Slight withdrawal to pain on the right DTR: 1+ Plantar reflex: Silent Gait: not examined. Sensory exam: Not cooperative. Cerebellar: Not cooperative Review of Relevant I have reviewed the following items ivania (where applicable) has been applied. Labs Laboratory Tests Test 09/28/21 04:30 09/28/21 07:15 09/28/21 11:00 09/29/21 08:00 White Blood Count 6.9 x10^3/uL (4.0-11.0) Red Blood Count 2.64 x10^6/uL (4.30-5.70) Hemoglobin 8.6 g/dL (13.0-17.5) Hematocrit 25.4 % (39.0-53.0) Mean Corpuscular Volume 96 fL (79-100) Mean Corpuscular Hemoglobin 32 pg (25-35) Mean Corpuscular Hemoglobin Concent 34 g/dL (31-37) Red Cell Distribution Width 14.4 % (11.5-14.5) Platelet Count 126 x10^3/uL (140-400) Neutrophils (%) (Auto) 80 % (31-73) Lymphocytes (%) (Auto) 10 % (24-48) Monocytes (%) (Auto) 8 % (0-9) Eosinophils (%) (Auto) 1 % (0-3) Basophils (%) (Auto) 1 % (0-3) Neutrophils # (Auto) 5.5 x10^3/uL (1.8-7.7) Lymphocytes # (Auto) 0.7 x10^3/uL (1.0-4.8) Monocytes # (Auto) 0.5 x10^3/uL (0.0-1.1) Eosinophils # (Auto) 0.1 x10^3/uL (0.0-0.7) Basophils # (Auto) 0.1 x10^3/uL (0.0-0.2) Sodium Level 147 mmol/L (136-145) Potassium Level 3.6 mmol/L (3.5-5.1) Chloride Level 113 mmol/L (98-107) Carbon Dioxide Level 26 mmol/L (21-32) Anion Gap 8 (6-14) Blood Urea Nitrogen 50 mg/dL (8-26) Creatinine 1.4 mg/dL (0.7-1.3) Estimated GFR (Cockcroft-Gault) 48.1 Glucose Level 150 mg/dL (70-99) Calcium Level 7.9 mg/dL (8.5-10.1) O2 Saturation 99 % (92-99) 98 % (92-99) Arterial Blood pH 7.50 (7.35-7.45) 7.52 (7.35-7.45) Arterial Blood pCO2 at Patient Temp 33 mmHg (35-46) 30 mmHg (35-46) Arterial Blood pO2 at Patient Temp 151 mmHg (65-108) 137 mmHg (65-108) Arterial Blood HCO3 25 mmol/L (21-28) 24 mmol/L (21-28) Arterial Blood Base Excess 2 mmol/L (-3-3) 2 mmol/L (-3-3) FiO2 35/vent 35 SARS-CoV-2 RNA (NORY) Negative (Negative) SARS-CoV-2 Antigen (Rapid) Negative (NEGATIVE) Laboratory Tests Test 09/28/21 11:00 09/29/21 08:00 SARS-CoV-2 RNA (NORY) Negative (Negative) SARS-CoV-2 Antigen (Rapid) Negative (NEGATIVE) O2 Saturation 98 % (92-99) Arterial Blood pH 7.52 (7.35-7.45) Arterial Blood pCO2 at Patient Temp 30 mmHg (35-46) Arterial Blood pO2 at Patient Temp 137 mmHg (65-108) Arterial Blood HCO3 24 mmol/L (21-28) Arterial Blood Base Excess 2 mmol/L (-3-3) FiO2 35 Medications Current Medications Fentanyl Citrate 30 ml @ 2.5 mls/hr CONT PRN IV SEE PROTOCOL Last administered on 09/24/21at 04:21; Start 09/22/21 at 18:00 Midazolam HCl 100 ml @ 1 mls/hr CONT PRN IV SEE PROTOCOL Last administered on 09/24/21at 04:21; Start 09/22/21 at 18:00 Propofol 100 ml @ 2.244 mls/ hr CONT PRN IV PER PROTOCOL Last administered on 09/22/21at 17:39; Start 09/22/21 at 18:00 Sodium Chloride 500 ml @ 500 mls/hr 1X PRN PRN IV SEE COMMENTS; Start 09/22/21 at 18:00 Atropine Sulfate (ATROPINE 0.5mg SYRINGE) 0.5 mg PRN Q5MIN PRN IV SEE COMMENTS; Start 09/22/21 at 18:00 Famotidine (Pepcid Vial) 20 mg BID IVP Last administered on 09/22/21at 21:58; Start 09/22/21 at 21:00; Stop 09/23/21 at 08:32; Status DC Midazolam HCl (Versed) 2 mg 1X ONCE IV Last administered on 09/22/21at 18:15; Start 09/22/21 at 18:15; Stop 09/22/21 at 18:16; Status DC Lidocaine/ Epinephrine (LIDOCAINE 2%-EPI 1:100,000 multi-dose) 20 ml 1X ONCE IJ Last administered on 09/22/21at 18:17; Start 09/22/21 at 18:15; Stop 09/22/21 at 18:16; Status DC Cefazolin Sodium (Ancef) 1 gm 1X ONCE IVP Last administered on 09/22/21at 18:15; Start 09/22/21 at 18:15; Stop 09/22/21 at 18:16; Status DC Propofol 100 ml @ 2.244 mls/ hr CONT PRN IV PER PROTOCOL; Start 09/22/21 at 18:15; Status UNV Ondansetron HCl (Zofran) 4 mg PRN Q4HRS PRN IVP NAUSEA/VOMITING; Start 09/22/21 at 18:45 Acetaminophen (Tylenol Supp) 650 mg PRN Q6HRS PRN PA MILD PAIN / TEMP > 100.3'F Last administered on 09/25/21at 00:26; Start 09/22/21 at 18:45 Bisacodyl (Dulcolax Supp) 10 mg PRN DAILY PRN PA CONSTIPATION; Start 09/22/21 at 18:45 Promethazine HCl (Phenergan Supp) 12.5 mg PRN Q6HRS PRN PA NAUSEA/VOMITING; Start 09/22/21 at 18:45 Ampicillin Sodium/ Sulbactam Sodium 3 gm/Sodium Chloride 100 ml @ 200 mls/hr Q6HRS IV Last administered on 09/25/21at 12:21; Start 09/22/21 at 18:45; Stop 09/25/21 at 16:21; Status DC Dopamine HCl/ Dextrose 250 ml @ 28.05 mls/ hr CONT PRN IV SEE I/O RECORD Last administered on 09/23/21at 08:44; Start 09/22/21 at 18:45 Lidocaine/ Epinephrine (LIDOCAINE 2%-EPI 1:100,000 multi-dose) 20 ml STK-MED ONCE .ROUTE ; Start 09/22/21 at 18:53; Stop 09/22/21 at 18:53; Status DC Midazolam HCl (Versed) 2 mg STK-MED ONCE .ROUTE ; Start 09/22/21 at 18:53; Stop 09/22/21 at 18:53; Status DC Cefazolin Sodium (Ancef) 1 gm STK-MED ONCE IVP ; Start 09/22/21 at 18:53; Stop 09/22/21 at 18:53; Status DC Fentanyl Citrate (Fentanyl 2ml Vial) 25 mcg PRN Q3HRS PRN IVP SEVERE PAIN 7-10; Start 09/22/21 at 21:30; Status Cancel Famotidine (Pepcid Vial) 20 mg DAILY IVP Last administered on 09/29/21at 09:33; Start 09/23/21 at 09:00 Heparin Sodium (Porcine) (Heparin Sodium) 5,000 unit Q12HR SQ Last administered on 09/23/21at 20:45; Start 09/23/21 at 21:00; Stop 09/23/21 at 22:59; Status DC Norepinephrine Bitartrate 8 mg/ Dextrose 258 ml @ 13.971 mls/ hr CONT PRN IV PER PROTOCOL Last administered on 09/23/21at 22:14; Start 09/23/21 at 11:45 Ampicillin Sodium/ Sulbactam Sodium 3 gm/Sodium Chloride 100 ml @ 200 mls/hr Q12HR IV Last administered on 09/28/21at 07:52; Start 09/25/21 at 21:00; Stop 09/28/21 at 13:20; Status DC Levetiracetam 500 mg/Dextrose 105 ml @ 420 mls/hr Q12HR IV Last administered on 09/29/21at 09:32; Start 09/26/21 at 04:00 Furosemide (Lasix) 20 mg 1X ONCE IVP Last administered on 09/26/21at 13:15; Start 09/26/21 at 13:15; Stop 09/26/21 at 13:16; Status DC Ampicillin Sodium/ Sulbactam Sodium 3 gm/Sodium Chloride 100 ml @ 200 mls/hr Q6HRS IV Last administered on 09/29/21at 05:56; Start 09/28/21 at 18:00 Acetaminophen (Tylenol) 650 mg PRN Q6HRS PRN PEG MILD PAIN / TEMP > 100.3'F Last administered on 09/29/21at 09:51; Start 09/29/21 at 09:45 Active Scripts Active Reported Urea 227 Gm Cream..g. 1 Tata TP DAILY 30 Days Crestor (Rosuvastatin Calcium) 40 Mg Tablet 1 Tab PO DAILY Namenda (Memantine Hcl) 10 Mg Tablet 1 Tab PO BID Pantoprazole Sodium (Pantoprazole Sodium) 40 Mg Tablet.dr 40 Mg PO DAILYAC Lisinopril 40 Mg Tablet 0.5 Tab PO DAILY Levothyroxine Sodium 50 Mcg Tablet 1 Tab PO DAILY Xolegel (Ketoconazole) 45 Gm Gel..gram. 1 Tata TP BID 30 Days Isosorbide Mononitrate Er (Isosorbide Mononitrate) 60 Mg Tab.er.24h 1 Tab PO DAILY Hydrophor Ointment (Mineral Oil/Hydrophil Petrolat) 454 Gm Oint...g. 454 Gm TP PRN PRN Zetia (Ezetimibe) 10 Mg Tablet 1 Tab PO DAILY 30 Days Donepezil Hcl 10 Mg Tablet 1 Tab PO DAILY Clopidogrel (Clopidogrel Bisulfate) 75 Mg Tablet 75 Mg PO DAILY Celexa (Citalopram Hydrobromide) 40 Mg Tablet 1 Tab PO DAILY Vitamin D3 (Vitamin D) 25 Mcg Tablet 25 Mcg PO DAILY 1,000 UNITS = 25 MCG Thera Tears (Carboxymethylcellulose Sodium) 15 Ml Drops 1 Drop EACHEYE QID Atenolol 25 Mg Tablet 1 Tab PO DAILY Amlodipine Besylate 5 Mg Tablet 5 Mg PO DAILY Vitals/I & O Vital Sign - Last 24 Hours 09/28/21 09/28/21 09/28/21 09/28/21 10:12 11:00 11:39 12:00 Pulse 72 Resp 17 B/P (MAP) 154/63 (93) Pulse Ox 100 100 100 O2 Delivery Ventilator Ventilator Ventilator Mechanical Ventilator 09/28/21 09/28/21 09/28/21 09/28/21 12:00 12:58 13:00 14:00 Temp 99.0 99.0 Pulse 74 71 71 Resp 21 18 19 B/P (MAP) 138/63 (88) 170/65 (100) 150/59 (89) Pulse Ox 100 100 100 100 O2 Delivery Ventilator Ventilator Ventilator Ventilator 09/28/21 09/28/21 09/28/21 09/28/21 15:00 16:00 16:00 16:02 Temp 100.2 100.2 Pulse 69 72 Resp 20 17 B/P (MAP) 163/68 (99) 158/59 (92) Pulse Ox 100 100 100 O2 Delivery Ventilator Mechanical Ventilator Ventilator Ventilator 09/28/21 09/28/21 09/28/21 09/28/21 17:00 17:44 18:00 19:00 Temp 100.2 100.2 Pulse 69 72 68 Resp 20 21 20 B/P (MAP) 158/57 (90) 158/60 (92) 155/64 (94) Pulse Ox 100 100 100 100 O2 Delivery Ventilator Ventilator Ventilator Ventilator 09/28/21 09/28/21 09/28/21 09/28/21 20:00 20:00 20:13 21:00 Temp 98.9 98.9 Pulse 72 72 Resp 23 22 B/P (MAP) 155/57 (89) 155/56 (89) Pulse Ox 100 100 100 O2 Delivery Ventilator Mechanical Ventilator Ventilator Ventilator 09/28/21 09/28/21 09/28/21 09/29/21 22:00 23:00 23:42 00:00 Temp Pulse 70 74 Resp B/P (MAP) 157/58 (91) 143/51 (81) Pulse Ox 100 100 100 O2 Delivery Ventilator Ventilator Ventilator Mechanical Ventilator 09/29/21 09/29/21 09/29/21 09/29/21 00:00 01:00 02:00 03:00 Temp 100.9 100.9 Pulse 78 75 74 74 Resp 20 B/P (MAP) 141/51 (81) 151/56 (87) 152/59 (90) 150/59 (89) Pulse Ox 99 100 100 100 O2 Delivery Ventilator Ventilator Ventilator Ventilator 09/29/21 09/29/21 09/29/21 09/29/21 04:00 04:00 04:07 05:00 Temp 98.4 98.4 Pulse 74 74 Resp 20 B/P (MAP) 153/62 (92) 153/57 (89) Pulse Ox 100 100 100 O2 Delivery Ventilator Mechanical Ventilator Ventilator Ventilator 09/29/21 09/29/21 06:00 08:30 Pulse 75 Resp 21 B/P (MAP) 154/57 (89) Pulse Ox 100 100 O2 Delivery Ventilator Ventilator Intake and Output 09/28/21 09/28/21 09/29/21 15:00 23:00 07:00 Intake Total 2164 ml 969.85 ml 1045.52 ml Output Total 645 ml 680 ml 475 ml Balance 1519 ml 289.85 ml 570.52 ml Justicifation of Admission Dx: Justifications for Admission: Justification of Admission Dx: N/A BRIDGETTE ROLAND MD Sep 29, 2021 10:05
--- NOTE | 2021-09-29 12:22 | PDOC ---
[employer] PROGRESS NOTE Date of Service DOS: DATE: 09/29/21 TIME: 12:16 Chief Complaint Chief Complaint Acute hypoxic respiratory failure - likely due to aspiration pneumonia from vomiting likely from symptomatic 3rd degree heart block. Will cont vent, wean O2 as tolerated. Unasyn for aspiration pneumonia coverage. Consult pulmonology for vent management assistance PEA arrest - likely from above aspiration event, complicated by 3rd degree heart block. ROSC obtained Third degree heart block - s/p PPM generator change with apparent recovery of heart rate. Cont dopamine. ICU admission Abnormal chest CT - likely due to due to pneumonia Nausea and vomiting - likely from CHB, will treat for pneumonia, will rule out other infectious etiology. IV antiemetics Fall - second fall in a week. If neurologic recovery occurs needs gait testing, though likely this was related to cardiac event Closed head injury - posterior scalp abrasion, local wound care. Monitor neurologic function. Anemia - will check iron studies, likely of chronic disease Thrombocytopenia - unclear etiology, will trend EDWIN - likely vasomotor nephropathy from arrest. Family does not know of any history of CKD, will order [facility] records Lactic acidosis - likely due to hypoxia, will trend Transaminitis - likely related to shock liver, will monitor Elevated troponin - demand ischemia from 3rd degree heart block, likely, will trend out. HTN - will add back home meds as BP allows HLD - statin when taking PO History of Present Illness History of Present Illness Mr Cerda is an 86-year-old male with PMHx HTN, HLD s/p PPM who presented to [facility] in [place] via EMS after a PEA cardiac arrest. Per his son, he was at home and in the presence of son and son-in-law when he was observed actively choking and subsequently falling on the floor with significant amount of emesis that was nonbloody and nonbilious in nature. Son reports vomit with recently ingested food and laying his father on his side and cleaning out his mouth while son-in-law called EMS. On EMS arrival ~3 minutes later, patient was unresponsive and cyanotic and they intubated. En-route patient was found to be pulseless in PEA and appropriate ACLS measures were followed with application of Howard device for chest compressions, and per report had a total of x2 epinephrine administered via left tibial IO. After approximately 5 minutes ROSC was obtained. In ED was noted unresponsive with pinpoint pupils and GCS 3 with no purposeful movements. Per EMS report and son the patient takes Plavix, lisinopril, rosuvastatin and citalopram at home. He has a pacemaker per son, which was placed in [place] over 10 years ago, and the son says he follows at [facility], doesn't know about pacer follow up. Per son he fell 4 days prior and [facility], noted on his occiput. Family notes he has been more weak than usual over past 72 hours, no travel or sick contacts. Is fully vaccinated against COVID 19. EKG appeared with third-degree heart block at 42 bpm, left axis deviation, T wave inversion noted in lead I, III, V2-6, no STEMI Vitals obtained concerning for marked bradycardia and no respiratory effort Labs with WBC 9.1, Hb 11.4, platelets 128, ABG 7.2 459 on 100% FiO2, rapid COVID-19 negative, NA 137, K4.2, BUN 50, CR 2, glucose 247, lactic acid 8.6, calcium 8.6, bilirubin 0.6, AST 131, ALT 157, alkaline phosphatase 90, ammonia 25, albumin 3, troponin 0.134, INR 1.1, urinalysis bland. CT head and neck with no acute abnormalities. CT chest with bibasilar infiltrates and NGT and ETT in good positioning. school lunch monitor concerning for third-degree heart block, with rate in the 20s, therefore 1 mg epinephrine administered with minimal improvement in HR, then 1 mg atropine without significant improvement, then dopamine gtt without sustained improvement. 3 L IV fluid administered and unasyn for aspiration pneumonitis. Ultimately was responsive to transcutaneous pacing and after discussion with cardiology he was transferred to [facility] for further care. To bed laborer prior to my assessment, had pacemaker generator replaced emergently. Seen in ICU. Discussed with son bedside. 09/23: Afebrile, on vent with FiO2 50%, PEEP 5. Continue dopamine gtt. We will continue Unasyn for aspiration pneumonia. Chest x-ray showed suspected partially consolidated left lower lobe infiltrate superimposed on right lower and bilateral upper lobe multifocal interstitial infiltrate.. Critical care time 30 minutes spent reviewing charts, general labs, reviewing imaging, and discussion with RN. 09/24: Afebrile. On vent with FiO2 40%, PEEP 5. Remains on pressor support. Off dopamine. Will continue Unasyn for pneumonia. Continue supportive care, continue to wean off vent. Critical care time 30 minutes spent reviewing charts, general labs, reviewing imaging, discussion with Dr. Mcdaniel, and discussion with RN. 09/25: Low-grade fever overnight, T-max 100.6 F. On vent with FiO2 35%, PEEP 5. Chest x-ray yesterday showed diffuse increased interstitial opacity likely due to interstitial infiltrate. Continue IV antibiotics. He has been off sedation for the past 24 hours. Platelets have steadily dropped; platelets 89 today. I discussion with daughter and son-in-law by phone about concerns for worsening bruising and, cytopenia. They are agreeable to no chest compressions, as to not cause any further damage that may lead to prolonged intubation. We will continue to wean off ventilator. 30 minutes critical care time spent reviewing charts, reviewing labs, reviewing imaging, discussion with RN, and discussion with Dr. Ortiz. 09/26: Afebrile. On vent with FiO2 35%, PEEP 5. Chest x-ray today showing stable diffuse interstitial infiltrate. Platelets [address] Brand was consulted yesterday; he is discussed with family the likely poor prognosis. Sister wants to fly in from [place] to see him. Family would like DNR but chemical code; son-in-law will discuss with the rest of family. Critical care time 30 minutes spent reviewing chart, reviewing labs, reviewing imaging, discussing with Dr. Ortiz. 09/27: Afebrile; on vent with FiO2 50%, PEEP 5. Off. For 72 hours. Some spontaneous movements noted this morning. I believe family is flying in from [place] to see him prior to making full DNR; chemical code. Critical care time 30 minutes spent reviewing charts, general labs, reviewing imaging, and discussion with RN. 09/28: Febrile overnight, T-max 102.0 F. 09/29 Patient evaluated examined at bedside. Remains off sedation. But still pretty unresponsive. Absent brainstem reflexes. Will attempt to contact family today to see if they are in fact coming in from [place]. Still on Levophed and dopamine. And requiring sedation. Critical care time 30 minutes spent reviewing charts, reviewing labs, imaging, discussion with RN. Vitals/I&O Vitals/I&O: Vital Signs Date Time Temp Pulse Resp B/P (MAP) Pulse Ox O2 Delivery O2 Flow Rate FiO2 09/29/21 11:00 68 20 118/52 (74) 100 Ventilator 09/29/21 08:00 102.9 102.9 I & O 09/28/21 09/28/21 09/29/21 15:00 23:00 07:00 Intake Total 2164 ml 969.85 ml 1045.52 ml Output Total 645 ml 680 ml 475 ml Balance 1519 ml 289.85 ml 570.52 ml Physical Exam General: Other (Intubated sedated) Heart: Regular rate Lungs: Clear Abdomen: Normal bowel sounds Extremities: No clubbing, No cyanosis, No edema, Normal pulses, No tenderness/swelling Skin: Other (Extensive bruising to anterior chest wall) Labs Labs: Laboratory Tests Test 09/29/21 08:00 O2 Saturation 98 % (92-99) Arterial Blood pH 7.52 (7.35-7.45) Arterial Blood pCO2 at Patient Temp 30 mmHg (35-46) Arterial Blood pO2 at Patient Temp 137 mmHg (65-108) Arterial Blood HCO3 24 mmol/L (21-28) Arterial Blood Base Excess 2 mmol/L (-3-3) FiO2 35 Comment Review of Relevant I have reviewed the following items ivania (where applicable) has been applied. Medications: Current Medications Medications (Trade) Dose Ordered Sig/Subha Route PRN Reason Start Time Stop Time Status Last Admin Dose Admin Ampicillin Sodium/ Sulbactam Sodium 3 gm/Sodium Chloride 100 ml @ 200 mls/hr Q6HRS IV 09/28/21 18:00 09/29/21 05:56 Acetaminophen (Tylenol) 650 mg PRN Q6HRS PRN PEG MILD PAIN / TEMP > 100.3'F 09/29/21 09:45 09/29/21 09:51 Justifications for Admission Chest Pain Indications Respiratory Distress?: Yes Justification for admission: Patient's respiratory distress as indicated by (SOB/tachypnea/abnormal breathing pattern plus hypoxemia/AMS/other evidence of respiratory compromise such as pulmonary edema on chest x-ray) will need inpatient level of care. Serious Diagnosis?: Yes Justification for admission: Chest pain may be indicative of potentially serious diagnosis/diagnoses Please state condition(s) which will require inpatient level of care for further evaluation and management. Other Justification TERESA GARZA MD Sep 29, 2021 12:22
--- NOTE | 2021-09-29 16:09 | NUR ---
SS following up with discharge planning. SS reviewed pt chart and discussed with pt RN. Pt is currently on the vent at 35%. COVID19 negative. No sedation. Pt on IV Ampicillin and IV Keppra. SS will continue to follow for discharge planning.
--- NOTE | 2021-09-29 17:32 | PDOC ---
KEKE ARGUETA CLERICAL RECEPTIONIST 09/29/21 1732: CARDIO Progress Notes Date and Time Date of Service 09/29/21 Time of Evaluation 1310 Subjective Subjective: Other (intubated ) Vitals Vitals Vital Signs Date Time Temp Pulse Resp B/P (MAP) Pulse Ox O2 Delivery O2 Flow Rate FiO2 09/29/21 16:25 Mechanical Ventilator 09/29/21 16:25 99.2 69 25 147/54 (85) 100 99.2 Weight Weight [ ] Input and Output Intake and Output Intake and Output 09/29/21 07:00 Intake Total 4179.37 ml Output Total 1800 ml Balance 2379.37 ml Intake IV Total 937.37 ml Tube Feeding 3242 ml Output Urine Total 1800 ml Gastric Drainage Total 0 ml Laboratory Labs Laboratory Tests Test 09/29/21 08:00 O2 Saturation 98 % (92-99) Arterial Blood pH 7.52 (7.35-7.45) Arterial Blood pCO2 at Patient Temp 30 mmHg (35-46) Arterial Blood pO2 at Patient Temp 137 mmHg (65-108) Arterial Blood HCO3 24 mmol/L (21-28) Arterial Blood Base Excess 2 mmol/L (-3-3) FiO2 35 Physical Exam HEENT: Neck Supple W Full Motion Chest: Symmetric, Other (right chest PPM incision well approximated. Steri- strips intact. ) LUNGS: Other (mechanical vent ) Heart: S1S2, RRR (paced ), other (distant heart tones ) Abdomen: Other (soft ) Extremities: No Edema Neurology: other (off sedation, not awake ) Assessment Assessment 1. Cardiac arrest due to pacemaker battery depletion 2. SSS s/p PPM. s/p generator change 3. NSTEMI - type 2. 4. Cardiomyopathy; echo with LVEF 45% 5. EDWIN; better 6. Cardiogenic shock; resolved 7. Acute respiratory failure due to #1 8. Probable aspiration PNA 9. Elevated LFTs, shock liver; improved 10. Anoxic encephalopathy; off sedation, minimal responsiveness to painful stimuli . 11. Possible seizure; on keppra 11. Thrombocytopenia; heparin discontinued Recommendations Awaiting family decision regarding goals of care, withdrawal Ongoing support Justicifation of Admission Dx: Justifications for Admission: Justification of Admission Dx: N/A DENIS CHEUNG MD 09/30/21 1130: CARDIO Progress Notes Plan Plan Late entry for 11/1/21 Pt. seen and examined. Agree with above SPOUTER note. Supportive care. Awaiting neurologic recovery. KEKE ARGUETA APRN Sep 29, 2021 17:32 DENIS CHEUNG MD Sep 30, 2021 11:30
[2021-09-30] VITALS (24 sets, daily range): BP systolic 131–175; BP diastolic 49–81
[2021-09-30] MEDS: AMPICILLIN/SULBACTAM 3 GM in IV NORMAL SALINE 100ML 100 ML IV SCH ×4 (00:13→18:06)
[2021-09-30 09:09] LABS: BASE EXCESS ABG 2 mmol/L (-3-3); HCO3 ABG 24 mmol/L (21-28); PCO2 ABG 31 mmHg (35-46); PO2 ABG 152 mmHg (65-108); SAT O2 ABG 99 % (92-99)
[2021-09-30 09:12] LABS: FIO2 ABG 35
--- NOTE | 2021-09-30 09:15 | PDOC ---
PULMONARY PROGRESS NOTES DATE: 09/30/21 TIME: 09:15 Subjective Patient not very responsive, barely moves to sternal rub Discontinued sedation well over 5 days ago Vitals Vital Signs Date Time Temp Pulse Resp B/P (MAP) Pulse Ox O2 Delivery O2 Flow Rate FiO2 09/30/21 08:54 100 Ventilator 09/30/21 08:00 98.6 72 20 164/62 (96) 98.6 Comments ros unable to obtain on vent not following commands HEENT: Other (nc at orally intubated nose clear neck no lad no thyromegaly) Lungs: Clear Cardiovascular: S1, S2 Abdomen: Soft Neuro Exam: Alert Extremities: Other (Some edema) Skin: Warm Labs Laboratory Tests Test 09/28/21 11:00 09/29/21 08:00 09/30/21 09:00 SARS-CoV-2 RNA (NORY) Negative (Negative) SARS-CoV-2 Antigen (Rapid) Negative (NEGATIVE) O2 Saturation 98 % (92-99) 99 % (92-99) Arterial Blood pH 7.52 (7.35-7.45) 7.51 (7.35-7.45) Arterial Blood pCO2 at Patient Temp 30 mmHg (35-46) 31 mmHg (35-46) Arterial Blood pO2 at Patient Temp 137 mmHg (65-108) 152 mmHg (65-108) Arterial Blood HCO3 24 mmol/L (21-28) 24 mmol/L (21-28) Arterial Blood Base Excess 2 mmol/L (-3-3) 2 mmol/L (-3-3) FiO2 35 35 Laboratory Tests Test 09/30/21 09:00 O2 Saturation 99 % (92-99) Arterial Blood pH 7.51 (7.35-7.45) Arterial Blood pCO2 at Patient Temp 31 mmHg (35-46) Arterial Blood pO2 at Patient Temp 152 mmHg (65-108) Arterial Blood HCO3 24 mmol/L (21-28) Arterial Blood Base Excess 2 mmol/L (-3-3) FiO2 35 Medications Active Scripts Medications Dose Route/Sig Max Daily Dose Days Date Category Dose Instructions Urea 227 Gm Cream..g. 1 Tata TP DAILY 30 09/23/21 Reported Crestor (Rosuvastatin Calcium) 40 Mg Tablet 1 Tab PO DAILY 09/23/21 Reported Namenda (Memantine Hcl) 10 Mg Tablet 1 Tab PO BID 09/23/21 Reported Pantoprazole Sodium (Pantoprazole Sodium) 40 Mg Tablet.dr 40 Mg PO DAILYAC 09/23/21 Reported Lisinopril 40 Mg Tablet 0.5 Tab PO DAILY 09/23/21 Reported Levothyroxine Sodium 50 Mcg Tablet 1 Tab PO DAILY 09/23/21 Reported Xolegel (Ketoconazole) 45 Gm Gel..gram. 1 Tata TP BID 30 09/23/21 Reported Isosorbide Mononitrate Er (Isosorbide Mononitrate) 60 Mg Tab.er.24h 1 Tab PO DAILY 09/23/21 Reported Hydrophor Ointment (Mineral Oil/Hydrophil Petrolat) 454 Gm Oint...g. 454 Gm TP PRN PRN 09/23/21 Reported Zetia (Ezetimibe) 10 Mg Tablet 1 Tab PO DAILY 30 09/23/21 Reported Donepezil Hcl 10 Mg Tablet 1 Tab PO DAILY 09/23/21 Reported Clopidogrel (Clopidogrel Bisulfate) 75 Mg Tablet 75 Mg PO DAILY 09/23/21 Reported Celexa (Citalopram Hydrobromide) 40 Mg Tablet 1 Tab PO DAILY 09/23/21 Reported Vitamin D3 (Vitamin D) 25 Mcg Tablet 25 Mcg PO DAILY 09/23/21 Reported 1,000 UNITS = 25 MCG Thera Tears (Carboxymethylcellulose Sodium) 15 Ml Drops 1 Drop EACHEYE QID 09/23/21 Reported Atenolol 25 Mg Tablet 1 Tab PO DAILY 09/23/21 Reported Amlodipine Besylate 5 Mg Tablet 5 Mg PO DAILY 09/23/21 Reported Comments cxr reviewed Stable diffuse interstitial infiltrate with suspected trace left pleural effusion. ett ok Impression . IMPRESSION: 1. Acute hypoxemic respiratory failure secondary to complete heart block. 2. 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 3. Acute kidney injury. 4. Elevated liver chemistries. 5. Non-ST segment elevation myocardial infarction. 6. Severe protein malnutrition, present upon admission. 7. Respiratory alkalosis. Minute ventilation adjust 8. Patient does assist ventilator, brainstem function intact 9. Possible seizures 10. Anoxic brain injury Plan . Updated Discussed with RN, continue current support, awaiting family decision to withdraw care updated 09/29 Awaiting family decision on withdrawal of care Appreciate Dr. Lara's input Discussed with CT CUELLAR MD Sep 30, 2021 09:15
[2021-09-30] MEDS: FAMOTIDINE 20 MG/2 ML VIAL IVP SCH (09:44)
[2021-09-30] MEDS: levETIRAcetam 500 MG in IV DEXTROSE 5% 100ML 100 ML IV SCH ×2 (09:45→20:52)
[2021-09-30] MEDS: ACETAMINOPHEN 650 MG/20.3 ML SOLUTION. PEG PRN ×2 (09:59→20:52)
--- NOTE | 2021-09-30 10:02 | PDOC ---
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 I have seen no improvement during the. 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 Plan Levetiracetam Awaiting family decision on level of care, Adam tells me that sister is flying in today at 4 PM No additional neurological studies needed Discussed with Adam, son-in-law Subjective None Objective Vital Signs Date Time Temp Pulse Resp B/P (MAP) Pulse Ox O2 Delivery O2 Flow Rate FiO2 09/30/21 08:54 100 Ventilator 09/30/21 08:00 101.1 72 20 164/62 (96) 101.1 Intake and Output 09/30/21 07:00 Intake Total 2418.48 ml Output Total 1850 ml Balance 568.48 ml Intake IV Total 784.48 ml Tube Feeding 1434 ml Other 200 ml Output Urine Total 1850 ml Gastric Drainage Total 0 ml PHYSICAL EXAM Eyes closed, no response to voice or pain PERRL. CN: no focal findings. Muscle tone: normal. Muscle strength: Slight withdrawal to pain on the right DTR: 1+ Plantar reflex: Silent Gait: not examined. Sensory exam: Not cooperative. Cerebellar: Not cooperative Review of Relevant I have reviewed the following items ivania (where applicable) has been applied. Labs Laboratory Tests Test 09/28/21 11:00 09/29/21 08:00 09/30/21 09:00 SARS-CoV-2 RNA (NORY) Negative (Negative) SARS-CoV-2 Antigen (Rapid) Negative (NEGATIVE) O2 Saturation 98 % (92-99) 99 % (92-99) Arterial Blood pH 7.52 (7.35-7.45) 7.51 (7.35-7.45) Arterial Blood pCO2 at Patient Temp 30 mmHg (35-46) 31 mmHg (35-46) Arterial Blood pO2 at Patient Temp 137 mmHg (65-108) 152 mmHg (65-108) Arterial Blood HCO3 24 mmol/L (21-28) 24 mmol/L (21-28) Arterial Blood Base Excess 2 mmol/L (-3-3) 2 mmol/L (-3-3) FiO2 35 35 Laboratory Tests Test 09/30/21 09:00 O2 Saturation 99 % (92-99) Arterial Blood pH 7.51 (7.35-7.45) Arterial Blood pCO2 at Patient Temp 31 mmHg (35-46) Arterial Blood pO2 at Patient Temp 152 mmHg (65-108) Arterial Blood HCO3 24 mmol/L (21-28) Arterial Blood Base Excess 2 mmol/L (-3-3) FiO2 35 Medications Current Medications Fentanyl Citrate 30 ml @ 2.5 mls/hr CONT PRN IV SEE PROTOCOL Last administered on 09/24/21at 04:21; Start 09/22/21 at 18:00 Midazolam HCl 100 ml @ 1 mls/hr CONT PRN IV SEE PROTOCOL Last administered on 09/24/21at 04:21; Start 09/22/21 at 18:00 Propofol 100 ml @ 2.244 mls/ hr CONT PRN IV PER PROTOCOL Last administered on 09/22/21at 17:39; Start 09/22/21 at 18:00 Sodium Chloride 500 ml @ 500 mls/hr 1X PRN PRN IV SEE COMMENTS; Start 09/22/21 at 18:00 Atropine Sulfate (ATROPINE 0.5mg SYRINGE) 0.5 mg PRN Q5MIN PRN IV SEE COMMENTS; Start 09/22/21 at 18:00 Famotidine (Pepcid Vial) 20 mg BID IVP Last administered on 09/22/21at 21:58; Start 09/22/21 at 21:00; Stop 09/23/21 at 08:32; Status DC Midazolam HCl (Versed) 2 mg 1X ONCE IV Last administered on 09/22/21at 18:15; Start 09/22/21 at 18:15; Stop 09/22/21 at 18:16; Status DC Lidocaine/ Epinephrine (LIDOCAINE 2%-EPI 1:100,000 multi-dose) 20 ml 1X ONCE IJ Last administered on 09/22/21at 18:17; Start 09/22/21 at 18:15; Stop 09/22/21 at 18:16; Status DC Cefazolin Sodium (Ancef) 1 gm 1X ONCE IVP Last administered on 09/22/21at 18:15; Start 09/22/21 at 18:15; Stop 09/22/21 at 18:16; Status DC Propofol 100 ml @ 2.244 mls/ hr CONT PRN IV PER PROTOCOL; Start 09/22/21 at 18:15; Status UNV Ondansetron HCl (Zofran) 4 mg PRN Q4HRS PRN IVP NAUSEA/VOMITING; Start 09/22/21 at 18:45 Acetaminophen (Tylenol Supp) 650 mg PRN Q6HRS PRN IA MILD PAIN / TEMP > 100.3'F Last administered on 09/25/21at 00:26; Start 09/22/21 at 18:45 Bisacodyl (Dulcolax Supp) 10 mg PRN DAILY PRN IA CONSTIPATION; Start 09/22/21 at 18:45 Promethazine HCl (Phenergan Supp) 12.5 mg PRN Q6HRS PRN IA NAUSEA/VOMITING; Start 09/22/21 at 18:45 Ampicillin Sodium/ Sulbactam Sodium 3 gm/Sodium Chloride 100 ml @ 200 mls/hr Q6HRS IV Last administered on 09/25/21at 12:21; Start 09/22/21 at 18:45; Stop 09/25/21 at 16:21; Status DC Dopamine HCl/ Dextrose 250 ml @ 28.05 mls/ hr CONT PRN IV SEE I/O RECORD Last administered on 09/23/21at 08:44; Start 09/22/21 at 18:45 Lidocaine/ Epinephrine (LIDOCAINE 2%-EPI 1:100,000 multi-dose) 20 ml STK-MED ONCE .ROUTE ; Start 09/22/21 at 18:53; Stop 09/22/21 at 18:53; Status DC Midazolam HCl (Versed) 2 mg STK-MED ONCE .ROUTE ; Start 09/22/21 at 18:53; Stop 09/22/21 at 18:53; Status DC Cefazolin Sodium (Ancef) 1 gm STK-MED ONCE IVP ; Start 09/22/21 at 18:53; Stop 09/22/21 at 18:53; Status DC Fentanyl Citrate (Fentanyl 2ml Vial) 25 mcg PRN Q3HRS PRN IVP SEVERE PAIN 7-10; Start 09/22/21 at 21:30; Status Cancel Famotidine (Pepcid Vial) 20 mg DAILY IVP Last administered on 09/30/21at 09:44; Start 09/23/21 at 09:00 Heparin Sodium (Porcine) (Heparin Sodium) 5,000 unit Q12HR SQ Last administered on 09/23/21at 20:45; Start 09/23/21 at 21:00; Stop 09/23/21 at 22:59; Status DC Norepinephrine Bitartrate 8 mg/ Dextrose 258 ml @ 13.971 mls/ hr CONT PRN IV PER PROTOCOL Last administered on 09/23/21at 22:14; Start 09/23/21 at 11:45 Ampicillin Sodium/ Sulbactam Sodium 3 gm/Sodium Chloride 100 ml @ 200 mls/hr Q12HR IV Last administered on 09/28/21at 07:52; Start 09/25/21 at 21:00; Stop 09/28/21 at 13:20; Status DC Levetiracetam 500 mg/Dextrose 105 ml @ 420 mls/hr Q12HR IV Last administered on 09/30/21at 09:45; Start 09/26/21 at 04:00 Furosemide (Lasix) 20 mg 1X ONCE IVP Last administered on 09/26/21at 13:15; Start 09/26/21 at 13:15; Stop 09/26/21 at 13:16; Status DC Ampicillin Sodium/ Sulbactam Sodium 3 gm/Sodium Chloride 100 ml @ 200 mls/hr Q6HRS IV Last administered on 09/30/21at 06:05; Start 09/28/21 at 18:00 Acetaminophen (Tylenol) 650 mg PRN Q6HRS PRN PEG MILD PAIN / TEMP > 100.3'F Last administered on 09/29/21at 21:07; Start 09/29/21 at 09:45 Active Scripts Active Reported Urea 227 Gm Cream..g. 1 Tata TP DAILY 30 Days Crestor (Rosuvastatin Calcium) 40 Mg Tablet 1 Tab PO DAILY Namenda (Memantine Hcl) 10 Mg Tablet 1 Tab PO BID Pantoprazole Sodium (Pantoprazole Sodium) 40 Mg Tablet.dr 40 Mg PO DAILYAC Lisinopril 40 Mg Tablet 0.5 Tab PO DAILY Levothyroxine Sodium 50 Mcg Tablet 1 Tab PO DAILY Xolegel (Ketoconazole) 45 Gm Gel..gram. 1 Tata TP BID 30 Days Isosorbide Mononitrate Er (Isosorbide Mononitrate) 60 Mg Tab.er.24h 1 Tab PO DAILY Hydrophor Ointment (Mineral Oil/Hydrophil Petrolat) 454 Gm Oint...g. 454 Gm TP PRN PRN Zetia (Ezetimibe) 10 Mg Tablet 1 Tab PO DAILY 30 Days Donepezil Hcl 10 Mg Tablet 1 Tab PO DAILY Clopidogrel (Clopidogrel Bisulfate) 75 Mg Tablet 75 Mg PO DAILY Celexa (Citalopram Hydrobromide) 40 Mg Tablet 1 Tab PO DAILY Vitamin D3 (Vitamin D) 25 Mcg Tablet 25 Mcg PO DAILY 1,000 UNITS = 25 MCG Thera Tears (Carboxymethylcellulose Sodium) 15 Ml Drops 1 Drop EACHEYE QID Atenolol 25 Mg Tablet 1 Tab PO DAILY Amlodipine Besylate 5 Mg Tablet 5 Mg PO DAILY Vitals/I & O Vital Sign - Last 24 Hours 09/29/21 09/29/21 09/29/21 09/29/21 10:00 11:00 12:00 12:00 Temp 99.2 99.2 Pulse 88 68 70 Resp 20 20 19 B/P (MAP) 169/76 (107) 118/52 (74) 142/61 (88) Pulse Ox 100 100 100 O2 Delivery Ventilator Ventilator Mechanical Ventilator Ventilator 09/29/21 09/29/21 09/29/21 09/29/21 12:10 13:00 13:30 14:00 Pulse 70 70 Resp 20 20 B/P (MAP) 135/60 (85) 133/56 (81) Pulse Ox 100 100 100 O2 Delivery Ventilator Ventilator Ventilator Ventilator 09/29/21 09/29/21 09/29/21 09/29/21 15:00 15:25 16:25 16:25 Temp 99.2 99.2 Pulse 70 69 Resp 24 25 B/P (MAP) 146/62 (90) 147/54 (85) Pulse Ox 100 100 100 O2 Delivery Ventilator Ventilator Ventilator Mechanical Ventilator 09/29/21 09/29/21 09/29/21 09/29/21 17:00 17:40 18:00 19:00 Pulse 68 78 78 Resp 26 26 28 B/P (MAP) 145/57 (86) 151/67 (95) 156/49 (84) Pulse Ox 100 100 100 99 O2 Delivery Ventilator Ventilator Ventilator Ventilator 09/29/21 09/29/21 09/29/21 09/29/21 19:05 20:00 20:00 21:00 Temp 100.7 100.7 Pulse 82 70 Resp 27 14 B/P (MAP) 148/65 (92) 152/61 (91) Pulse Ox 100 99 100 O2 Delivery Ventilator Ventilator Mechanical Ventilator Ventilator 09/29/21 09/29/21 09/29/21 09/30/21 21:20 22:00 23:00 00:00 Pulse 70 70 Resp 14 19 B/P (MAP) 136/54 (81) 137/52 (80) Pulse Ox 100 100 100 O2 Delivery Ventilator Ventilator Ventilator Mechanical Ventilator 09/30/21 09/30/21 09/30/21 09/30/21 00:00 00:20 01:00 02:00 Temp 99.3 99.3 Pulse 71 68 68 Resp 20 B/P (MAP) 131/52 (78) 157/55 (89) 148/63 (91) Pulse Ox 100 100 100 100 O2 Delivery Ventilator Ventilator Ventilator Ventilator 09/30/21 09/30/21 09/30/21 09/30/21 02:45 03:00 04:00 04:00 Temp 98.3 98.3 Pulse 70 68 Resp B/P (MAP) 154/70 (98) 151/64 (93) Pulse Ox 100 100 100 O2 Delivery Ventilator Ventilator Mechanical Ventilator Ventilator 09/30/21 09/30/21 09/30/21 09/30/21 05:00 05:55 06:00 07:00 Pulse 72 72 76 Resp B/P (MAP) 160/60 (93) 153/59 (90) 164/62 (96) Pulse Ox 100 100 100 100 O2 Delivery Ventilator Ventilator Ventilator Ventilator 09/30/21 09/30/21 09/30/21 08:00 08:00 08:54 Temp 101.1 101.1 Pulse 72 Resp 20 B/P (MAP) 164/62 (96) Pulse Ox 100 100 O2 Delivery Mechanical Ventilator Ventilator Ventilator Intake and Output 09/29/21 09/29/21 09/30/21 15:00 23:00 07:00 Intake Total 200 ml 1129 ml 1089.48 ml Output Total 575 ml 765 ml 510 ml Balance -375 ml 364 ml 579.48 ml Justicifation of Admission Dx: Justifications for Admission: Justification of Admission Dx: N/A BRIDGETTE ROLAND MD Sep 30, 2021 10:02
--- NOTE | 2021-09-30 11:57 | PDOC ---
KEKE ARGUETA MACHINE REBUILDER 09/30/21 1157: CARDIO Progress Notes Date and Time Date of Service 09/30/21 Time of Evaluation 1150 Subjective Subjective: Other (intubated ) Vitals Vitals Vital Signs Date Time Temp Pulse Resp B/P (MAP) Pulse Ox O2 Delivery O2 Flow Rate FiO2 09/30/21 11:00 69 15 155/57 (89) 100 Ventilator 09/30/21 08:00 101.1 101.1 Weight Weight [ ] Input and Output Intake and Output Intake and Output 09/30/21 07:00 Intake Total 2418.48 ml Output Total 1850 ml Balance 568.48 ml Intake IV Total 784.48 ml Tube Feeding 1434 ml Other 200 ml Output Urine Total 1850 ml Gastric Drainage Total 0 ml Laboratory Labs Laboratory Tests Test 09/30/21 09:00 O2 Saturation 99 % (92-99) Arterial Blood pH 7.51 (7.35-7.45) Arterial Blood pCO2 at Patient Temp 31 mmHg (35-46) Arterial Blood pO2 at Patient Temp 152 mmHg (65-108) Arterial Blood HCO3 24 mmol/L (21-28) Arterial Blood Base Excess 2 mmol/L (-3-3) FiO2 35 Physical Exam HEENT: Neck Supple W Full Motion Chest: Symmetric, Other (right chest PPM Drsg intact ) LUNGS: Other (mechanical vent ) Heart: S1S2, RRR (paced ), other (distant heart tones ) Abdomen: Other (soft ) Extremities: No Edema Neurology: other (off sedation, not awake ) Assessment Assessment 1. Cardiac arrest due to pacemaker battery depletion 2. SSS s/p PPM. s/p generator change 3. NSTEMI - type 2. 4. Cardiomyopathy; echo with LVEF 45% 5. EDWIN; better 6. Cardiogenic shock; resolved 7. Acute respiratory failure due to #1 8. Probable aspiration PNA 9. Elevated LFTs, shock liver; improved 10. Anoxic encephalopathy; off sedation, minimal responsiveness to painful stimuli . 11. Possible seizure; on keppra 11. Thrombocytopenia; heparin discontinued Recommendations Ongoing support Awaiting family arrival Justicifation of Admission Dx: Justifications for Admission: Justification of Admission Dx: N/A DENIS CHEUNG MD 09/30/21 0401: CARDIO Progress Notes Plan Plan The patient was seen and interviewed as well as examined at the bedside. The chart was reviewed. The case was discussed. Agree with the plan of care. Discussed with neurology. Await family decision. KEKE ARGUETA APRN Sep 30, 2021 11:57 DENIS CHEUNG MD Sep 30, 2021 21:51
--- NOTE | 2021-09-30 15:58 | NUR ---
SS following up with discharge planning. SS reviewed pt chart and discussed with pt RN. Pt is currently on the vent at 35%. COVID19 negative. No sedation. Pt on IV Ampicillin and IV Keppra. Pt non-responsive. Physicians discussing goals of care with pt's family. SS will continue to follow for discharge planning.
--- NOTE | 2021-09-30 16:12 | PDOC ---
[employer] PROGRESS NOTE Date of Service DOS: DATE: 09/30/21 TIME: 16:10 Chief Complaint Chief Complaint Acute hypoxic respiratory failure - likely due to aspiration pneumonia from vomiting likely from symptomatic 3rd degree heart block. Will cont vent, wean O2 as tolerated. Unasyn for aspiration pneumonia coverage. Consult pulmonology for vent management assistance PEA arrest - likely from above aspiration event, complicated by 3rd degree heart block. ROSC obtained Third degree heart block - s/p PPM generator change with apparent recovery of heart rate. Cont dopamine. ICU admission Abnormal chest CT - likely due to due to pneumonia Nausea and vomiting - likely from CHB, will treat for pneumonia, will rule out other infectious etiology. IV antiemetics Fall - second fall in a week. If neurologic recovery occurs needs gait testing, though likely this was related to cardiac event Closed head injury - posterior scalp abrasion, local wound care. Monitor neurologic function. Anemia - will check iron studies, likely of chronic disease Thrombocytopenia - unclear etiology, will trend EDWIN - likely vasomotor nephropathy from arrest. Family does not know of any history of CKD, will order [facility] records Lactic acidosis - likely due to hypoxia, will trend Transaminitis - likely related to shock liver, will monitor Elevated troponin - demand ischemia from 3rd degree heart block, likely, will trend out. HTN - will add back home meds as BP allows HLD - statin when taking PO Patient family arrived next 24 hours to discuss ongoing plan History of Present Illness History of Present Illness Mr Cerda is an 86-year-old male with PMHx HTN, HLD s/p PPM who presented to [facility] in [place] via EMS after a PEA cardiac arrest. Per his son, he was at home and in the presence of son and son-in-law when he was observed actively choking and subsequently falling on the floor with significant amount of emesis that was nonbloody and nonbilious in nature. Son reports vomit with recently ingested food and laying his father on his side and cleaning out his mouth while son-in-law called EMS. On EMS arrival ~3 minutes later, patient was unresponsive and cyanotic and they intubated. En-route patient was found to be pulseless in PEA and appropriate ACLS measures were followed with application of Howard device for chest compressions, and per report had a total of x2 epinephrine administered via left tibial IO. After approximately 5 minutes ROSC was obtained. In ED was noted unresponsive with pinpoint pupils and GCS 3 with no purposeful movements. Per EMS report and son the patient takes Plavix, lisinopril, rosuvastatin and citalopram at home. He has a pacemaker per son, which was placed in [place] over 10 years ago, and the son says he follows at [facility], doesn't know about pacer follow up. Per son he fell 4 days prior and [facility], noted on his occiput. Family notes he has been more weak than usual over past 72 hours, no travel or sick contacts. Is fully vaccinated against COVID 19. EKG appeared with third-degree heart block at 42 bpm, left axis deviation, T wave inversion noted in lead I, III, V2-6, no STEMI Vitals obtained concerning for marked bradycardia and no respiratory effort Labs with WBC 9.1, Hb 11.4, platelets 128, ABG 7.2 7/42/459 on 100% FiO2, rapid COVID-19 negative, NA 137, K4.2, BUN 50, CR 2, glucose 247, lactic acid 8.6, calcium 8.6, bilirubin 0.6, AST 131, ALT 157, alkaline phosphatase 90, ammonia 25, albumin 3, troponin 0.134, INR 1.1, urinalysis bland. CT head and neck with no acute abnormalities. CT chest with bibasilar infiltrates and NGT and ETT in good positioning. monitor car operator concerning for third-degree heart block, with rate in the 20s, therefore 1 mg epinephrine administered with minimal improvement in HR, then 1 mg atropine without significant improvement, then dopamine gtt without sustained improvement. 3 L IV fluid administered and unasyn for aspiration pneumonitis. Ultimately was responsive to transcutaneous pacing and after discussion with cardiology he was transferred to [facility] for further care. To dental laboratory assistant prior to my assessment, had pacemaker generator replaced emergently. Seen in ICU. Discussed with son bedside. 09/23: Afebrile, on vent with FiO2 50%, PEEP 5. Continue dopamine gtt. We will continue Unasyn for aspiration pneumonia. Chest x-ray showed suspected partially consolidated left lower lobe infiltrate superimposed on right lower and bilateral upper lobe multifocal interstitial infiltrate.. Critical care time 30 minutes spent reviewing charts, general labs, reviewing imaging, and discussion with RN. 09/24: Afebrile. On vent with FiO2 40%, PEEP 5. Remains on pressor support. Off dopamine. Will continue Unasyn for pneumonia. Continue supportive care, continue to wean off vent. Critical care time 30 minutes spent reviewing charts, general labs, reviewing imaging, discussion with Dr. Mcdaniel, and discussion with RN. 09/25: Low-grade fever overnight, T-max 100.6 F. On vent with FiO2 35%, PEEP 5. Chest x-ray yesterday showed diffuse increased interstitial opacity likely due to interstitial infiltrate. Continue IV antibiotics. He has been off sedation for the past 24 hours. Platelets have steadily dropped; platelets 89 today. I discussion with daughter and son-in-law by phone about concerns for worsening bruising and, cytopenia. They are agreeable to no chest compressions, as to not cause any further damage that may lead to prolonged intubation. We will continue to wean off ventilator. 30 minutes critical care time spent reviewing charts, reviewing labs, reviewing imaging, discussion with RN, and discussion with Dr. Ortiz. 09/26: Afebrile. On vent with FiO2 35%, PEEP 5. Chest x-ray today showing stable diffuse interstitial infiltrate. Platelets [address] Brand was consulted yesterday; he is discussed with family the likely poor prognosis. Sister wants to fly in from [place] to see him. Family would like DNR but chemical code; son-in-law will discuss with the rest of family. Critical care time 30 minutes spent reviewing chart, reviewing labs, reviewing imaging, discussing with Dr. Ortiz. 09/27: Afebrile; on vent with FiO2 50%, PEEP 5. Off. For 72 hours. Some spont aneous movements noted this morning. I believe family is flying in from [place] to see him prior to making full DNR; chemical code. Critical care time 30 minutes spent reviewing charts, general labs, reviewing imaging, and discussion with RN. 09/28: Febrile overnight, T-max 102.0 F. 09/29 Patient evaluated examined at bedside. Remains off sedation. But still pretty unresponsive. Absent brainstem reflexes. Will attempt to contact family today to see if they are in fact coming in from [place]. Still on Levophed and dopamine. . Critical care time 30 minutes spent reviewing charts, reviewing labs, imaging, discussion with RN. 09/30 Patient evaluated and examined at bedside. Still off sedation and unresponsive. Still on Levophed for blood pressure support. Family supposed to arrive today for discussion of ongoing care. Critical care time 30 minutes spent reviewing charts, reviewing labs, imaging, discussion with RN. Vitals/I&O Vitals/I&O: Vital Signs Date Time Temp Pulse Resp B/P (MAP) Pulse Ox O2 Delivery O2 Flow Rate FiO2 09/30/21 15:43 100 Ventilator 09/30/21 14:00 70 18 134/49 (77) 09/30/21 12:00 98.7 98.7 I & O 09/29/21 09/29/21 09/30/21 15:00 23:00 07:00 Intake Total 200 ml 1129 ml 1089.48 ml Output Total 575 ml 765 ml 510 ml Balance -375 ml 364 ml 579.48 ml Physical Exam General: Other (Intubated sedated) Heart: Regular rate Lungs: Clear Abdomen: Normal bowel sounds Extremities: No clubbing, No cyanosis, No edema, Normal pulses, No tenderness/swelling Skin: Other (Extensive bruising to anterior chest wall) Labs Labs: Laboratory Tests Test 09/30/21 09:00 O2 Saturation 99 % (92-99) Arterial Blood pH 7.51 (7.35-7.45) Arterial Blood pCO2 at Patient Temp 31 mmHg (35-46) Arterial Blood pO2 at Patient Temp 152 mmHg (65-108) Arterial Blood HCO3 24 mmol/L (21-28) Arterial Blood Base Excess 2 mmol/L (-3-3) FiO2 35 Comment Review of Relevant I have reviewed the following items ivania (where applicable) has been applied. Justifications for Admission Chest Pain Indications Respiratory Distress?: Yes Justification for admission: Patient's respiratory distress as indicated by (SOB/tachypnea/abnormal breathing pattern plus hypoxemia/AMS/other evidence of respiratory compromise such as pulmonary edema on chest x-ray) will need inpatient level of care. Serious Diagnosis?: Yes Justification for admission: Chest pain may be indicative of potentially serious diagnosis/diagnoses Please state condition(s) which will require inpatient level of care for further evaluation and management. Other Justification TERESA GARZA MD Sep 30, 2021 16:12
[2021-10-01] VITALS (23 sets, daily range): BP systolic 141–169; BP diastolic 54–72
[2021-10-01] MEDS: AMPICILLIN/SULBACTAM 3 GM in IV NORMAL SALINE 100ML 100 ML IV SCH ×4 (00:41→17:26)
--- NOTE | 2021-10-01 05:12 | NUR ---
This RN has reviewed and approves of SN charting.
[2021-10-01 08:59] LABS: BASE EXCESS ABG 2 mmol/L (-3-3); HCO3 ABG 24 mmol/L (21-28); PCO2 ABG 30 mmHg (35-46); PO2 ABG 143 mmHg (65-108); SAT O2 ABG 98 % (92-99)
[2021-10-01 09:00] LABS: FIO2 ABG 35
--- NOTE | 2021-10-01 09:06 | PDOC ---
PULMONARY PROGRESS NOTES DATE: 10/01/21 TIME: 09:05 Subjective No change in neuro status patient not very responsive, barely moves to sternal rub Discontinued sedation well over 5 days ago Vitals Vital Signs Date Time Temp Pulse Resp B/P (MAP) Pulse Ox O2 Delivery O2 Flow Rate FiO2 10/01/21 08:35 100 Ventilator 10/01/21 06:00 69 18 158/62 (94) 10/01/21 04:00 99.6 99.6 Comments ros unable to obtain on vent not following commands HEENT: Other (nc at orally intubated nose clear neck no lad no thyromegaly) Lungs: Clear Cardiovascular: S1, S2 Abdomen: Soft Neuro Exam: Alert Extremities: Other (Some edema) Skin: Warm Labs Laboratory Tests Test 09/30/21 09:00 10/01/21 08:00 O2 Saturation 99 % (92-99) 98 % (92-99) Arterial Blood pH 7.51 (7.35-7.45) 7.52 (7.35-7.45) Arterial Blood pCO2 at Patient Temp 31 mmHg (35-46) 30 mmHg (35-46) Arterial Blood pO2 at Patient Temp 152 mmHg (65-108) 143 mmHg (65-108) Arterial Blood HCO3 24 mmol/L (21-28) 24 mmol/L (21-28) Arterial Blood Base Excess 2 mmol/L (-3-3) 2 mmol/L (-3-3) FiO2 35 35 Laboratory Tests Test 10/01/21 08:00 O2 Saturation 98 % (92-99) Arterial Blood pH 7.52 (7.35-7.45) Arterial Blood pCO2 at Patient Temp 30 mmHg (35-46) Arterial Blood pO2 at Patient Temp 143 mmHg (65-108) Arterial Blood HCO3 24 mmol/L (21-28) Arterial Blood Base Excess 2 mmol/L (-3-3) FiO2 35 Medications Active Scripts Medications Dose Route/Sig Max Daily Dose Days Date Category Dose Instructions Urea 227 Gm Cream..g. 1 Tata TP DAILY 30 09/23/21 Reported Crestor (Rosuvastatin Calcium) 40 Mg Tablet 1 Tab PO DAILY 09/23/21 Reported Namenda (Memantine Hcl) 10 Mg Tablet 1 Tab PO BID 09/23/21 Reported Pantoprazole Sodium (Pantoprazole Sodium) 40 Mg Tablet.dr 40 Mg PO DAILYAC 09/23/21 Reported Lisinopril 40 Mg Tablet 0.5 Tab PO DAILY 09/23/21 Reported Levothyroxine Sodium 50 Mcg Tablet 1 Tab PO DAILY 09/23/21 Reported Xolegel (Ketoconazole) 45 Gm Gel..gram. 1 Tata TP BID 30 09/23/21 Reported Isosorbide Mononitrate Er (Isosorbide Mononitrate) 60 Mg Tab.er.24h 1 Tab PO DAILY 09/23/21 Reported Hydrophor Ointment (Mineral Oil/Hydrophil Petrolat) 454 Gm Oint...g. 454 Gm TP PRN PRN 09/23/21 Reported Zetia (Ezetimibe) 10 Mg Tablet 1 Tab PO DAILY 30 09/23/21 Reported Donepezil Hcl 10 Mg Tablet 1 Tab PO DAILY 09/23/21 Reported Clopidogrel (Clopidogrel Bisulfate) 75 Mg Tablet 75 Mg PO DAILY 09/23/21 Reported Celexa (Citalopram Hydrobromide) 40 Mg Tablet 1 Tab PO DAILY 09/23/21 Reported Vitamin D3 (Vitamin D) 25 Mcg Tablet 25 Mcg PO DAILY 09/23/21 Reported 1,000 UNITS = 25 MCG Thera Tears (Carboxymethylcellulose Sodium) 15 Ml Drops 1 Drop EACHEYE QID 09/23/21 Reported Atenolol 25 Mg Tablet 1 Tab PO DAILY 09/23/21 Reported Amlodipine Besylate 5 Mg Tablet 5 Mg PO DAILY 09/23/21 Reported Comments cxr reviewed Stable diffuse interstitial infiltrate with suspected trace left pleural effusion. ett ok Impression . IMPRESSION: 1. Acute hypoxemic respiratory failure secondary to complete heart block. 2. 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 3. Acute kidney injury. 4. Elevated liver chemistries. 5. Non-ST segment elevation myocardial infarction. 6. Severe protein malnutrition, present upon admission. 7. Respiratory alkalosis. Minute ventilation adjust 8. Patient does assist ventilator, brainstem function intact 9. Possible seizures 10. Anoxic brain injury Plan . Updated 10/01 Discussed with pca came in yesterday Expect to discontinue support soon CT MERCEDES MD Oct 01, 2021 09:06
--- NOTE | 2021-10-01 09:30 | PDOC ---
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 I have seen no improvement during the. 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 CN: no focal findings. Tendency for right gaze, can use oculocephalic reflex to get them over to the left Muscle tone: normal. Muscle strength: Slight withdrawal to pain on the right DTR: 1+ Plantar reflex: Silent Gait: not examined. Sensory exam: Not cooperative. Cerebellar: Not cooperative Review of Relevant I have reviewed the following items ivania (where applicable) has been applied. Labs Laboratory Tests Test 09/30/21 09:00 10/01/21 08:00 O2 Saturation 99 % (92-99) 98 % (92-99) Arterial Blood pH 7.51 (7.35-7.45) 7.52 (7.35-7.45) Arterial Blood pCO2 at Patient Temp 31 mmHg (35-46) 30 mmHg (35-46) Arterial Blood pO2 at Patient Temp 152 mmHg (65-108) 143 mmHg (65-108) Arterial Blood HCO3 24 mmol/L (21-28) 24 mmol/L (21-28) Arterial Blood Base Excess 2 mmol/L (-3-3) 2 mmol/L (-3-3) FiO2 35 35 Laboratory Tests Test 10/01/21 08:00 O2 Saturation 98 % (92-99) Arterial Blood pH 7.52 (7.35-7.45) Arterial Blood pCO2 at Patient Temp 30 mmHg (35-46) Arterial Blood pO2 at Patient Temp 143 mmHg (65-108) Arterial Blood HCO3 24 mmol/L (21-28) Arterial Blood Base Excess 2 mmol/L (-3-3) FiO2 35 Medications Current Medications Fentanyl Citrate 30 ml @ 2.5 mls/hr CONT PRN IV SEE PROTOCOL Last administered on 09/24/21at 04:21; Start 09/22/21 at 18:00 Midazolam HCl 100 ml @ 1 mls/hr CONT PRN IV SEE PROTOCOL Last administered on 09/24/21at 04:21; Start 09/22/21 at 18:00 Propofol 100 ml @ 2.244 mls/ hr CONT PRN IV PER PROTOCOL Last administered on 09/22/21at 17:39; Start 09/22/21 at 18:00 Sodium Chloride 500 ml @ 500 mls/hr 1X PRN PRN IV SEE COMMENTS; Start 09/22/21 at 18:00 Atropine Sulfate (ATROPINE 0.5mg SYRINGE) 0.5 mg PRN Q5MIN PRN IV SEE COMMENTS; Start 09/22/21 at 18:00 Famotidine (Pepcid Vial) 20 mg BID IVP Last administered on 09/22/21at 21:58; Start 09/22/21 at 21:00; Stop 09/23/21 at 08:32; Status DC Midazolam HCl (Versed) 2 mg 1X ONCE IV Last administered on 09/22/21at 18:15; Start 09/22/21 at 18:15; Stop 09/22/21 at 18:16; Status DC Lidocaine/ Epinephrine (LIDOCAINE 2%-EPI 1:100,000 multi-dose) 20 ml 1X ONCE IJ Last administered on 09/22/21at 18:17; Start 09/22/21 at 18:15; Stop 09/22/21 at 18:16; Status DC Cefazolin Sodium (Ancef) 1 gm 1X ONCE IVP Last administered on 09/22/21at 18:15; Start 09/22/21 at 18:15; Stop 09/22/21 at 18:16; Status DC Propofol 100 ml @ 2.244 mls/ hr CONT PRN IV PER PROTOCOL; Start 09/22/21 at 18:15; Status UNV Ondansetron HCl (Zofran) 4 mg PRN Q4HRS PRN IVP NAUSEA/VOMITING; Start 09/22/21 at 18:45 Acetaminophen (Tylenol Supp) 650 mg PRN Q6HRS PRN TN MILD PAIN / TEMP > 100.3'F Last administered on 09/25/21at 00:26; Start 09/22/21 at 18:45 Bisacodyl (Dulcolax Supp) 10 mg PRN DAILY PRN TN CONSTIPATION; Start 09/22/21 at 18:45 Promethazine HCl (Phenergan Supp) 12.5 mg PRN Q6HRS PRN TN NAUSEA/VOMITING; Start 09/22/21 at 18:45 Ampicillin Sodium/ Sulbactam Sodium 3 gm/Sodium Chloride 100 ml @ 200 mls/hr Q6HRS IV Last administered on 09/25/21at 12:21; Start 09/22/21 at 18:45; Stop 09/25/21 at 16:21; Status DC Dopamine HCl/ Dextrose 250 ml @ 28.05 mls/ hr CONT PRN IV SEE I/O RECORD Last administered on 09/23/21at 08:44; Start 09/22/21 at 18:45 Lidocaine/ Epinephrine (LIDOCAINE 2%-EPI 1:100,000 multi-dose) 20 ml STK-MED ONCE .ROUTE ; Start 09/22/21 at 18:53; Stop 09/22/21 at 18:53; Status DC Midazolam HCl (Versed) 2 mg STK-MED ONCE .ROUTE ; Start 09/22/21 at 18:53; Stop 09/22/21 at 18:53; Status DC Cefazolin Sodium (Ancef) 1 gm STK-MED ONCE IVP ; Start 09/22/21 at 18:53; Stop 09/22/21 at 18:53; Status DC Fentanyl Citrate (Fentanyl 2ml Vial) 25 mcg PRN Q3HRS PRN IVP SEVERE PAIN 7-10; Start 09/22/21 at 21:30; Status Cancel Famotidine (Pepcid Vial) 20 mg DAILY IVP Last administered on 09/30/21at 09:44; Start 09/23/21 at 09:00 Heparin Sodium (Porcine) (Heparin Sodium) 5,000 unit Q12HR SQ Last administered on 09/23/21at 20:45; Start 09/23/21 at 21:00; Stop 09/23/21 at 22:59; Status DC Norepinephrine Bitartrate 8 mg/ Dextrose 258 ml @ 13.971 mls/ hr CONT PRN IV PER PROTOCOL Last administered on 09/23/21at 22:14; Start 09/23/21 at 11:45 Ampicillin Sodium/ Sulbactam Sodium 3 gm/Sodium Chloride 100 ml @ 200 mls/hr Q12HR IV Last administered on 09/28/21at 07:52; Start 09/25/21 at 21:00; Stop 09/28/21 at 13:20; Status DC Levetiracetam 500 mg/Dextrose 105 ml @ 420 mls/hr Q12HR IV Last administered on 09/30/21at 20:52; Start 09/26/21 at 04:00 Furosemide (Lasix) 20 mg 1X ONCE IVP Last administered on 09/26/21at 13:15; Start 09/26/21 at 13:15; Stop 09/26/21 at 13:16; Status DC Ampicillin Sodium/ Sulbactam Sodium 3 gm/Sodium Chloride 100 ml @ 200 mls/hr Q6HRS IV Last administered on 10/01/21at 06:25; Start 09/28/21 at 18:00 Acetaminophen (Tylenol) 650 mg PRN Q6HRS PRN PEG MILD PAIN / TEMP > 100.3'F Last administered on 09/30/21at 20:52; Start 09/29/21 at 09:45 Active Scripts Active Reported Urea 227 Gm Cream..g. 1 Tata TP DAILY 30 Days Crestor (Rosuvastatin Calcium) 40 Mg Tablet 1 Tab PO DAILY Namenda (Memantine Hcl) 10 Mg Tablet 1 Tab PO BID Pantoprazole Sodium (Pantoprazole Sodium) 40 Mg Tablet.dr 40 Mg PO DAILYAC Lisinopril 40 Mg Tablet 0.5 Tab PO DAILY Levothyroxine Sodium 50 Mcg Tablet 1 Tab PO DAILY Xolegel (Ketoconazole) 45 Gm Gel..gram. 1 Tata TP BID 30 Days Isosorbide Mononitrate Er (Isosorbide Mononitrate) 60 Mg Tab.er.24h 1 Tab PO DAILY Hydrophor Ointment (Mineral Oil/Hydrophil Petrolat) 454 Gm Oint...g. 454 Gm TP PRN PRN Zetia (Ezetimibe) 10 Mg Tablet 1 Tab PO DAILY 30 Days Donepezil Hcl 10 Mg Tablet 1 Tab PO DAILY Clopidogrel (Clopidogrel Bisulfate) 75 Mg Tablet 75 Mg PO DAILY Celexa (Citalopram Hydrobromide) 40 Mg Tablet 1 Tab PO DAILY Vitamin D3 (Vitamin D) 25 Mcg Tablet 25 Mcg PO DAILY 1,000 UNITS = 25 MCG Thera Tears (Carboxymethylcellulose Sodium) 15 Ml Drops 1 Drop EACHEYE QID Atenolol 25 Mg Tablet 1 Tab PO DAILY Amlodipine Besylate 5 Mg Tablet 5 Mg PO DAILY Vitals/I & O Vital Sign - Last 24 Hours 09/30/21 09/30/21 09/30/21 09/30/21 10:00 11:00 12:00 12:00 Temp 98.7 98.7 Pulse 78 69 74 Resp 25 15 24 B/P (MAP) 171/81 (111) 155/57 (89) 155/57 (89) Pulse Ox 100 100 100 O2 Delivery Ventilator Ventilator Ventilator Mechanical Ventilator 09/30/21 09/30/21 09/30/21 09/30/21 12:28 13:00 13:18 14:00 Pulse 69 70 Resp 23 18 B/P (MAP) 137/54 (81) 134/49 (77) Pulse Ox 100 100 100 100 O2 Delivery Ventilator Ventilator Ventilator Ventilator 09/30/21 09/30/21 09/30/21 09/30/21 15:00 15:43 16:00 16:00 Temp 100.2 100.2 Pulse 70 70 Resp 18 16 B/P (MAP) 144/56 (85) 152/60 (90) Pulse Ox 100 100 100 O2 Delivery Ventilator Ventilator Mechanical Ventilator Ventilator 09/30/21 09/30/21 09/30/21 09/30/21 17:00 17:39 18:00 19:00 Pulse 70 70 69 Resp 17 21 18 B/P (MAP) 155/59 (91) 161/63 (95) 158/58 (91) Pulse Ox 100 100 100 100 O2 Delivery Ventilator Ventilator Ventilator Ventilator 09/30/21 09/30/21 09/30/21 09/30/21 19:00 20:00 20:00 21:00 Temp 101.3 101.3 Pulse 69 Resp 19 B/P (MAP) 155/59 (91) Pulse Ox 100 100 100 O2 Delivery Ventilator Ventilator Mechanical Ventilator Ventilator 09/30/21 09/30/21 09/30/21 09/30/21 21:00 22:00 23:00 23:00 Pulse 70 69 69 Resp 19 15 16 B/P (MAP) 166/62 (96) 150/59 (89) 149/56 (87) Pulse Ox 100 100 100 100 O2 Delivery Ventilator Ventilator Ventilator Ventilator 09/30/21 10/01/21 10/01/21 10/01/21 23:59 00:00 01:00 01:00 Temp 100.6 100.6 Pulse 69 69 Resp 17 15 B/P (MAP) 148/56 (86) 141/54 (83) Pulse Ox 100 100 100 O2 Delivery Mechanical Ventilator Ventilator Ventilator Ventilator 10/01/21 10/01/21 10/01/21 10/01/21 02:00 03:00 03:00 04:00 Pulse 70 70 Resp 17 17 B/P (MAP) 145/62 (89) 155/60 (91) Pulse Ox 100 100 100 O2 Delivery Ventilator Ventilator Ventilator Mechanical Ventilator 10/01/21 10/01/21 10/01/21 10/01/21 04:00 05:00 05:30 06:00 Temp 99.6 99.6 Pulse 70 70 69 Resp 14 17 18 B/P (MAP) 159/58 (91) 152/61 (91) 158/62 (94) Pulse Ox 100 100 100 100 O2 Delivery Ventilator Ventilator Ventilator Ventilator 10/01/21 10/01/21 10/01/21 10/01/21 07:00 08:00 08:00 08:35 Pulse 69 69 Resp 18 18 B/P (MAP) 151/63 (92) 153/59 (90) Pulse Ox 100 100 100 O2 Delivery Ventilator Mechanical Ventilator Ventilator Ventilator 10/01/21 09:00 Pulse 70 Resp 18 B/P (MAP) 156/60 (92) Pulse Ox 100 O2 Delivery Ventilator Intake and Output 09/30/21 09/30/21 10/01/21 15:00 23:00 07:00 Intake Total 542 ml 1331 ml 866 ml Output Total 390 ml 635 ml 455 ml Balance 152 ml 696 ml 411 ml Justicifation of Admission Dx: Justifications for Admission: Justification of Admission Dx: N/A BRIDGETTE ROLAND MD Oct 01, 2021 09:30
[2021-10-01] MEDS: FAMOTIDINE 20 MG/2 ML VIAL IVP SCH (09:40)
[2021-10-01] MEDS: levETIRAcetam 500 MG in IV DEXTROSE 5% 100ML 100 ML IV SCH ×2 (09:41→20:38)
--- NOTE | 2021-10-01 10:42 | PDOC ---
[employer] PROGRESS NOTE Date of Service DOS: DATE: 10/01/21 TIME: 10:41 Chief Complaint Chief Complaint Acute hypoxic respiratory failure - likely due to aspiration pneumonia from vomiting likely from symptomatic 3rd degree heart block. Will cont vent, wean O2 as tolerated. Unasyn for aspiration pneumonia coverage. Consult pulmonology for vent management assistance PEA arrest - likely from above aspiration event, complicated by 3rd degree heart block. ROSC obtained Third degree heart block - s/p PPM generator change with apparent recovery of heart rate. Cont dopamine. ICU admission Abnormal chest CT - likely due to due to pneumonia Nausea and vomiting - likely from CHB, will treat for pneumonia, will rule out other infectious etiology. IV antiemetics Fall - second fall in a week. If neurologic recovery occurs needs gait testing, though likely this was related to cardiac event Closed head injury - posterior scalp abrasion, local wound care. Monitor neurologic function. Anemia - will check iron studies, likely of chronic disease Thrombocytopenia - unclear etiology, will trend EDWIN - likely vasomotor nephropathy from arrest. Family does not know of any history of CKD, will order [facility] records Lactic acidosis - likely due to hypoxia, will trend Transaminitis - likely related to shock liver, will monitor Elevated troponin - demand ischemia from 3rd degree heart block, likely, will trend out. HTN - will add back home meds as BP allows HLD - statin when taking PO Patient family arrived next 24 hours to discuss ongoing plan History of Present Illness History of Present Illness Mr Cerda is an 86-year-old male with PMHx HTN, HLD s/p PPM who presented to [facility] ED in [place] via EMS after a PEA cardiac arrest. Per his son, he was at home and in the presence of son and son-in-law when he was observed actively choking and subsequently falling on the floor with significant amount of emesis that was nonbloody and nonbilious in nature. Son reports vomit with recently ingested food and laying his father on his side and cleaning out his mouth while son-in-law called EMS. On EMS arrival ~3 minutes later, patient was unresponsive and cyanotic and they intubated. En-route patient was found to be pulseless in PEA and appropriate ACLS measures were followed with application of Howard device for chest compressions, and per report had a total of x2 epinephrine administered via left tibial IO. After approximately 5 minutes ROSC was obtained. In ED was noted unresponsive with pinpoint pupils and GCS 3 with no purposeful movements. Per EMS report and son the patient takes Plavix, lisinopril, rosuvastatin and citalopram at home. He has a pacemaker per son, which was placed in [place] over 10 years ago, and the son says he follows at [facility], doesn't know about pacer follow up. Per son he fell 4 days prior and [facility], noted on his occiput. Family notes he has been more weak than usual over past 72 hours, no travel or sick contacts. Is fully vaccinated against COVID 19. EKG appeared with third-degree heart block at 42 bpm, left axis deviation, T wave inversion noted in lead I, III, V2-6, no STEMI Vitals obtained concerning for marked bradycardia and no respiratory effort Labs with WBC 9.1, Hb 11.4, platelets 128, ABG 7.2 7/42/459 on 100% FiO2, rapid COVID-19 negative, NA 137, K4.2, BUN 50, CR 2, glucose 247, lactic acid 8.6, calcium 8.6, bilirubin 0.6, AST 131, ALT 157, alkaline phosphatase 90, ammonia 25, albumin 3, troponin 0.134, INR 1.1, urinalysis bland. CT head and neck with no acute abnormalities. CT chest with bibasilar infiltrates and NGT and ETT in good positioning. computer technical specialist concerning for third-degree heart block, with rate in the 20s, therefore 1 mg epinephrine administered with minimal improvement in HR, then 1 mg atropine without significant improvement, then dopamine gtt without sustained improvement. 3 L IV fluid administered and unasyn for aspiration pneumonitis. Ultimately was responsive to transcutaneous pacing and after discussion with cardiology he was transferred to [facility] for further care. 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 Seen in ICU. Discussed with son bedside. 09/23: Afebrile, on vent with FiO2 50%, PEEP 5. Continue dopamine gtt. We will continue Unasyn for aspiration pneumonia. Chest x-ray showed suspected partially consolidated left lower lobe infiltrate superimposed on right lower and bilateral upper lobe multifocal interstitial infiltrate.. Critical care time 30 minutes spent reviewing charts, general labs, reviewing imaging, and discussion with RN. 09/24: Afebrile. On vent with FiO2 40%, PEEP 5. Remains on pressor support. Off dopamine. Will continue Unasyn for pneumonia. Continue supportive care, continue to wean off vent. Critical care time 30 minutes spent reviewing charts, general labs, reviewing imaging, discussion with Dr. Mcdaniel, and discussion with RN. 09/25: Low-grade fever overnight, T-max 100.6 F. On vent with FiO2 35%, PEEP 5. Chest x-ray yesterday showed diffuse increased interstitial opacity likely due to interstitial infiltrate. Continue IV antibiotics. He has been off sedation for the past 24 hours. Platelets have steadily dropped; platelets 89 today. I discussion with daughter and son-in-law by phone about concerns for worsening bruising and, cytopenia. They are agreeable to no chest compressions, as to not cause any further damage that may lead to prolonged intubation. We will continue to wean off ventilator. 30 minutes critical care time spent reviewing charts, reviewing labs, reviewing imaging, discussion with RN, and discussion with Dr. Ortiz. 09/26: Afebrile. On vent with FiO2 35%, PEEP 5. Chest x-ray today showing stable diffuse interstitial infiltrate. Platelets [address] Brand was consulted yesterday; he is discussed with family the likely poor prognosis. Sister wants to fly in from [place] to see him. Family would like DNR but chemical code; son-in-law will discuss with the rest of family. Critical care time 30 minutes spent reviewing chart, reviewing labs, reviewing imaging, discussing with Dr. Ortiz. 09/27: Afebrile; on vent with FiO2 50%, PEEP 5. Off. For 72 hours. Some spont aneous movements noted this morning. I believe family is flying in from [place] to see him prior to making full DNR; chemical code. Critical care time 30 minutes spent reviewing charts, general labs, reviewing imaging, and discussion with RN. 09/28: Febrile overnight, T-max 102.0 F. 09/29 Patient evaluated examined at bedside. Remains off sedation. But still pretty unresponsive. Absent brainstem reflexes. Will attempt to contact family today to see if they are in fact coming in from [place]. Still on Levophed and dopamine. . Critical care time 30 minutes spent reviewing charts, reviewing labs, imaging, discussion with RN. 09/30 Patient evaluated and examined at bedside. Still off sedation and unresponsive. Still on Levophed for blood pressure support. Family supposed to arrive today for discussion of ongoing care. Critical care time 30 minutes spent reviewing charts, reviewing labs, imaging, discussion with RN. 10/01 Patient evaluated and examined at bedside. Still intubated and unresponsive. R equiring pressors. Talk to patient's son on phone today for 15 minutes discussing advanced care planning. He reported that she has not been able to discuss ongoing care with his sister as she works in the afternoons and he works in the evenings. Provided clinical updates to him told him about no real improvement at this point. Still remains on high ventilator settings. Planning to meet with him tomorrow afternoon at bedside for further discussion.Critical care time 30 minutes spent reviewing charts, reviewing labs, imaging, discussion with RN Vitals/I&O Vitals/I&O: Vital Signs Date Time Temp Pulse Resp B/P (MAP) Pulse Ox O2 Delivery O2 Flow Rate FiO2 10/01/21 09:00 70 18 156/60 (92) 100 Ventilator 10/01/21 04:00 99.6 99.6 I & O 09/30/21 09/30/21 10/01/21 15:00 23:00 07:00 Intake Total 542 ml 1331 ml 866 ml Output Total 390 ml 635 ml 455 ml Balance 152 ml 696 ml 411 ml Physical Exam General: Other (Intubated sedated) Heart: Regular rate Lungs: Clear Abdomen: Normal bowel sounds Extremities: No clubbing, No cyanosis, No edema, Normal pulses, No tenderness/swelling Skin: Other (Extensive bruising to anterior chest wall) Labs Labs: Laboratory Tests Test 10/01/21 08:00 O2 Saturation 98 % (92-99) Arterial Blood pH 7.52 (7.35-7.45) Arterial Blood pCO2 at Patient Temp 30 mmHg (35-46) Arterial Blood pO2 at Patient Temp 143 mmHg (65-108) Arterial Blood HCO3 24 mmol/L (21-28) Arterial Blood Base Excess 2 mmol/L (-3-3) FiO2 35 Comment Review of Relevant I have reviewed the following items ivania (where applicable) has been applied. Justifications for Admission Chest Pain Indications Respiratory Distress?: Yes Justification for admission: Patient's respiratory distress as indicated by (SOB/tachypnea/abnormal breathing pattern plus hypoxemia/AMS/other evidence of respiratory compromise such as pulmonary edema on chest x-ray) will need inpatient level of care. Serious Diagnosis?: Yes Justification for admission: Chest pain may be indicative of potentially serious diagnosis/diagnoses Please state condition(s) which will require inpatient level of care for further evaluation and management. Other Justification TERESA GARZA MD Oct 01, 2021 10:42
--- NOTE | 2021-10-01 12:26 | PDOC ---
KEKE ARGUETA PADDING MACHINE OPERATOR 10/01/21 1226: CARDIO Progress Notes Date and Time Date of Service 10/01/21 Time of Evaluation 1215 Subjective Subjective: Other (intubated ) Vitals Vitals Vital Signs Date Time Temp Pulse Resp B/P (MAP) Pulse Ox O2 Delivery O2 Flow Rate FiO2 10/01/21 11:00 70 18 158/63 (94) 100 Ventilator 10/01/21 10:00 99.3 99.3 Weight Weight [ ] Input and Output Intake and Output Intake and Output 10/01/21 07:00 Intake Total 2739 ml Output Total 1480 ml Balance 1259 ml Intake IV Total 839 ml Tube Feeding 1720 ml Other 180 ml Output Urine Total 1480 ml Gastric Drainage Total 0 ml Laboratory Labs Laboratory Tests Test 10/01/21 08:00 O2 Saturation 98 % (92-99) Arterial Blood pH 7.52 (7.35-7.45) Arterial Blood pCO2 at Patient Temp 30 mmHg (35-46) Arterial Blood pO2 at Patient Temp 143 mmHg (65-108) Arterial Blood HCO3 24 mmol/L (21-28) Arterial Blood Base Excess 2 mmol/L (-3-3) FiO2 35 Physical Exam HEENT: Neck Supple W Full Motion Chest: Symmetric, Other (right chest PPM site drsg intact ) LUNGS: Other (mechanical vent ) Heart: S1S2, RRR (paced ), other (distant heart tones ) Abdomen: Other (soft ) Extremities: No Edema Neurology: other (off sedation, not awake ) Assessment Assessment 1. Cardiac arrest due to pacemaker battery depletion 2. SSS s/p PPM. s/p generator change 3. NSTEMI - type 2. 4. Cardiomyopathy; echo with LVEF 45% 5. EDWIN; better 6. Cardiogenic shock; resolved 7. Acute respiratory failure due to #1 8. Probable aspiration PNA 9. Elevated LFTs, shock liver; improved 10. Anoxic encephalopathy; off sedation, minimal responsiveness to painful stimuli . 11. Possible seizure; on keppra 11. Thrombocytopenia; heparin discontinued Recommendations Ongoing support Awaiting family decision regarding goals of care Justicifation of Admission Dx: Justifications for Admission: Justification of Admission Dx: N/A DENIS CHEUNG MD 10/02/21 1432: CARDIO Progress Notes Plan Plan Late entry for 10/01/21 Pt. seen and examined. Agree with above AUTOMOBILE MECHANIC note. Consider hospice care. Await family decision. KEKE ARGUETA APRN Oct 01, 2021 12:26 DENIS CHEUNG MD Oct 02, 2021 14:32
[2021-10-02] VITALS (24 sets, daily range): BP systolic 148–176; BP diastolic 52–79
[2021-10-02] MEDS: AMPICILLIN/SULBACTAM 3 GM in IV NORMAL SALINE 100ML 100 ML IV SCH ×4 (00:25→18:19)
--- NOTE | 2021-10-02 05:41 | NUR ---
This RN has reviewed and approves of SN charting.
[2021-10-02] MEDS: FAMOTIDINE 20 MG/2 ML VIAL IVP SCH (09:12)
[2021-10-02] MEDS: levETIRAcetam 500 MG in IV DEXTROSE 5% 100ML 100 ML IV SCH ×2 (09:13→21:28)
--- NOTE | 2021-10-02 09:15 | PDOC ---
PULMONARY PROGRESS NOTES DATE: 10/02/21 TIME: 09:14 Subjective No change in neuro status patient not very responsive, barely moves to sternal rub Sedation discontinued several days ago Vitals Vital Signs Date Time Temp Pulse Resp B/P (MAP) Pulse Ox O2 Delivery O2 Flow Rate FiO2 10/02/21 08:00 Mechanical Ventilator 10/02/21 08:00 99.0 68 23 175/79 (111) 100 99.0 Comments ros unable to obtain on vent not following commands HEENT: Other (nc at orally intubated nose clear neck no lad no thyromegaly) Lungs: Clear Cardiovascular: S1, S2 Abdomen: Soft Neuro Exam: Alert Extremities: Other (Some edema) Skin: Warm Labs Laboratory Tests Test 10/01/21 08:00 O2 Saturation 98 % (92-99) Arterial Blood pH 7.52 (7.35-7.45) Arterial Blood pCO2 at Patient Temp 30 mmHg (35-46) Arterial Blood pO2 at Patient Temp 143 mmHg (65-108) Arterial Blood HCO3 24 mmol/L (21-28) Arterial Blood Base Excess 2 mmol/L (-3-3) FiO2 35 Medications Active Scripts Medications Dose Route/Sig Max Daily Dose Days Date Category Dose Instructions Urea 227 Gm Cream..g. 1 Tata TP DAILY 30 09/23/21 Reported Crestor (Rosuvastatin Calcium) 40 Mg Tablet 1 Tab PO DAILY 09/23/21 Reported Namenda (Memantine Hcl) 10 Mg Tablet 1 Tab PO BID 09/23/21 Reported Pantoprazole Sodium (Pantoprazole Sodium) 40 Mg Tablet.dr 40 Mg PO DAILYAC 09/23/21 Reported Lisinopril 40 Mg Tablet 0.5 Tab PO DAILY 09/23/21 Reported Levothyroxine Sodium 50 Mcg Tablet 1 Tab PO DAILY 09/23/21 Reported Xolegel (Ketoconazole) 45 Gm Gel..gram. 1 Tata TP BID 30 09/23/21 Reported Isosorbide Mononitrate Er (Isosorbide Mononitrate) 60 Mg Tab.er.24h 1 Tab PO DAILY 09/23/21 Reported Hydrophor Ointment (Mineral Oil/Hydrophil Petrolat) 454 Gm Oint...g. 454 Gm TP PRN PRN 09/23/21 Reported Zetia (Ezetimibe) 10 Mg Tablet 1 Tab PO DAILY 30 09/23/21 Reported Donepezil Hcl 10 Mg Tablet 1 Tab PO DAILY 09/23/21 Reported Clopidogrel (Clopidogrel Bisulfate) 75 Mg Tablet 75 Mg PO DAILY 09/23/21 Reported Celexa (Citalopram Hydrobromide) 40 Mg Tablet 1 Tab PO DAILY 09/23/21 Reported Vitamin D3 (Vitamin D) 25 Mcg Tablet 25 Mcg PO DAILY 09/23/21 Reported 1,000 UNITS = 25 MCG Thera Tears (Carboxymethylcellulose Sodium) 15 Ml Drops 1 Drop EACHEYE QID 09/23/21 Reported Atenolol 25 Mg Tablet 1 Tab PO DAILY 09/23/21 Reported Amlodipine Besylate 5 Mg Tablet 5 Mg PO DAILY 09/23/21 Reported Comments cxr reviewed Stable diffuse interstitial infiltrate with suspected trace left pleural effusion. ett ok Impression . IMPRESSION: 1. Acute hypoxemic respiratory failure secondary to complete heart block. 2. 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 3. Acute kidney injury. 4. Elevated liver chemistries. 5. Non-ST segment elevation myocardial infarction. 6. Severe protein malnutrition, present upon admission. 7. Respiratory alkalosis. Minute ventilation adjust 8. Patient does assist ventilator, brainstem function intact 9. Possible seizures 10. Anoxic brain injury Plan . 10/02 nasal 9 discussed with hiv counselor meeting later today with Dr. Flood I would recommend discontinuing support allow natural updated 10/01 Discussed with hiv counselor came in yesterday Expect to discontinue support soon CT MERCEDES MD Oct 02, 2021 09:15
--- NOTE | 2021-10-02 13:10 | PDOC ---
[employer] PROGRESS NOTE Date of Service DOS: DATE: 10/02/21 TIME: 13:09 Chief Complaint Chief Complaint Acute hypoxic respiratory failure - likely due to aspiration pneumonia from vomiting likely from symptomatic 3rd degree heart block. Will cont vent, wean O2 as tolerated. Unasyn for aspiration pneumonia coverage. Consult pulmonology for vent management assistance PEA arrest - likely from above aspiration event, complicated by 3rd degree heart block. ROSC obtained Third degree heart block - s/p PPM generator change with apparent recovery of heart rate. Cont dopamine. ICU admission Abnormal chest CT - likely due to due to pneumonia Nausea and vomiting - likely from CHB, will treat for pneumonia, will rule out other infectious etiology. IV antiemetics Fall - second fall in a week. If neurologic recovery occurs needs gait testing, though likely this was related to cardiac event Closed head injury - posterior scalp abrasion, local wound care. Monitor neurologic function. Anemia - will check iron studies, likely of chronic disease Thrombocytopenia - unclear etiology, will trend EDWIN - likely vasomotor nephropathy from arrest. Family does not know of any history of CKD, will order [facility] records Lactic acidosis - likely due to hypoxia, will trend Transaminitis - likely related to shock liver, will monitor Elevated troponin - demand ischemia from 3rd degree heart block, likely, will trend out. HTN - will add back home meds as BP allows HLD - statin when taking PO Patient family arrived next 24 hours to discuss ongoing plan History of Present Illness History of Present Illness Mr Cerda is an 86-year-old male with PMHx HTN, HLD s/p PPM who presented to [facility] in [place] via EMS after a PEA cardiac arrest. Per his son, he was at home and in the presence of son and son-in-law when he was observed actively choking and subsequently falling on the floor with significant amount of emesis that was nonbloody and nonbilious in nature. Son reports vomit with recently ingested food and laying his father on his side and cleaning out his mouth while son-in-law called EMS. On EMS arrival ~3 minutes later, patient was unresponsive and cyanotic and they intubated. En-route patient was found to be pulseless in PEA and appropriate ACLS measures were followed with application of Howard device for chest compressions, and per report had a total of x2 epinephrine administered via left tibial IO. After approximately 5 minutes ROSC was obtained. In ED was noted unresponsive with pinpoint pupils and GCS 3 with no purposeful movements. Per EMS report and son the patient takes Plavix, lisinopril, rosuvastatin and citalopram at home. He has a pacemaker per son, which was placed in [place] over 10 years ago, and the son says he follows at [facility], doesn't know about pacer follow up. Per son he fell 4 days prior and [facility], noted on his occiput. Family notes he has been more weak than usual over past 72 hours, no travel or sick contacts. Is fully vaccinated against COVID 19. EKG appeared with third-degree heart block at 42 bpm, left axis deviation, T wave inversion noted in lead I, III, V2-6, no STEMI Vitals obtained concerning for marked bradycardia and no respiratory effort Labs with WBC 9.1, Hb 11.4, platelets 128, ABG 7.2 7/42/459 on 100% FiO2, rapid COVID-19 negative, NA 137, K4.2, BUN 50, CR 2, glucose 247, lactic acid 8.6, calcium 8.6, bilirubin 0.6, AST 131, ALT 157, alkaline phosphatase 90, ammonia 25, albumin 3, troponin 0.134, INR 1.1, urinalysis bland. CT head and neck with no acute abnormalities. CT chest with bibasilar infiltrates and NGT and ETT in good positioning. code inspector concerning for third-degree heart block, with rate in the 20s, therefore 1 mg epinephrine administered with minimal improvement in HR, then 1 mg atropine without significant improvement, then dopamine gtt without sustained improvement. 3 L IV fluid administered and unasyn for aspiration pneumonitis. Ultimately was responsive to transcutaneous pacing and after discussion with cardiology he was transferred to [facility] for further care. 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 Seen in ICU. Discussed with son bedside. 09/23: Afebrile, on vent with FiO2 50%, PEEP 5. Continue dopamine gtt. We will continue Unasyn for aspiration pneumonia. Chest x-ray showed suspected partially consolidated left lower lobe infiltrate superimposed on right lower and bilateral upper lobe multifocal interstitial infiltrate.. Critical care time 30 minutes spent reviewing charts, general labs, reviewing imaging, and discussion with RN. 09/24: Afebrile. On vent with FiO2 40%, PEEP 5. Remains on pressor support. Off dopamine. Will continue Unasyn for pneumonia. Continue supportive care, continue to wean off vent. Critical care time 30 minutes spent reviewing charts, general labs, reviewing imaging, discussion with Dr. Mcdaniel, and discussion with RN. 09/25: Low-grade fever overnight, T-max 100.6 F. On vent with FiO2 35%, PEEP 5. Chest x-ray yesterday showed diffuse increased interstitial opacity likely due to interstitial infiltrate. Continue IV antibiotics. He has been off sedation for the past 24 hours. Platelets have steadily dropped; platelets 89 today. I discussion with daughter and son-in-law by phone about concerns for worsening bruising and, cytopenia. They are agreeable to no chest compressions, as to not cause any further damage that may lead to prolonged intubation. We will continue to wean off ventilator. 30 minutes critical care time spent reviewing charts, reviewing labs, reviewing imaging, discussion with RN, and discussion with Dr. Ortiz. 09/26: Afebrile. On vent with FiO2 35%, PEEP 5. Chest x-ray today showing stable diffuse interstitial infiltrate. Platelets [address] Brand was consulted yesterday; he is discussed with family the likely poor prognosis. Sister wants to fly in from [place] to see him. Family would like DNR but chemical code; son-in-law will discuss with the rest of family. Critical care time 30 minutes spent reviewing chart, reviewing labs, reviewing imaging, discussing with Dr. Ortiz. 09/27: Afebrile; on vent with FiO2 50%, PEEP 5. Off. For 72 hours. Some spont aneous movements noted this morning. I believe family is flying in from [place] to see him prior to making full DNR; chemical code. Critical care time 30 minutes spent reviewing charts, general labs, reviewing imaging, and discussion with RN. 09/28: Febrile overnight, T-max 102.0 F. 09/29 Patient evaluated examined at bedside. Remains off sedation. But still pretty unresponsive. Absent brainstem reflexes. Will attempt to contact family today to see if they are in fact coming in from [place]. Still on Levophed and dopamine. . Critical care time 30 minutes spent reviewing charts, reviewing labs, imaging, discussion with RN. 09/30 Patient evaluated and examined at bedside. Still off sedation and unresponsive. Still on Levophed for blood pressure support. Family supposed to arrive today for discussion of ongoing care. Critical care time 30 minutes spent reviewing charts, reviewing labs, imaging, discussion with RN. 10/01 Patient evaluated and examined at bedside. Still intubated and unresponsive. R equiring pressors. Talk to patient's son on phone today for 15 minutes discussing advanced care planning. He reported that she has not been able to discuss ongoing care with his sister as she works in the afternoons and he works in the evenings. Provided clinical updates to him told him about no real improvement at this point. Still remains on high ventilator settings. Planning to meet with him tomorrow afternoon at bedside for further discussion.Critical care time 30 minutes spent reviewing charts, reviewing labs, imaging, discussion with RN 10/02 Patient evaluated examined at bedside. Still intubated minimally responsive emma n without sedation. Waiting for son to arrive at bedside for care discussion. Otherwise continuing current plans. I spent 35 minutes critical care time reviewing charts labs imaging and discussion with subspecialist and nursing team. Vitals/I&O Vitals/I&O: Vital Signs Date Time Temp Pulse Resp B/P (MAP) Pulse Ox O2 Delivery O2 Flow Rate FiO2 10/02/21 11:08 100 Ventilator 10/02/21 10:00 69 20 163/68 (99) 10/02/21 08:00 99.0 99.0 I & O 10/01/21 10/01/21 10/02/21 15:00 23:00 07:00 Intake Total 405 ml 405 ml 1777 ml Output Total 380 ml 415 ml 520 ml Balance 25 ml -10 ml 1257 ml Physical Exam General: Other (Intubated sedated) Heart: Regular rate Lungs: Clear Abdomen: Normal bowel sounds Extremities: No clubbing, No cyanosis, No edema, Normal pulses, No tenderness/swelling Skin: Other (Extensive bruising to anterior chest wall) Comment Review of Relevant I have reviewed the following items ivania (where applicable) has been applied. Justifications for Admission Chest Pain Indications Respiratory Distress?: Yes Justification for admission: Patient's respiratory distress as indicated by (SOB/tachypnea/abnormal breathing pattern plus hypoxemia/AMS/other evidence of respiratory compromise such as pulmonary edema on chest x-ray) will need inpatient level of care. Serious Diagnosis?: Yes Justification for admission: Chest pain may be indicative of potentially serious diagnosis/diagnoses Please state condition(s) which will require inpatient level of care for further evaluation and management. Other Justification TERESA GARZA MD Oct 02, 2021 13:10
--- NOTE | 2021-10-02 13:16 | PDOC ---
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 I have seen no improvement during the. 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 CN: no focal findings. Muscle tone: normal. Muscle strength: Slight withdrawal to pain on the right DTR: 1+ Plantar reflex: Silent Gait: not examined. Sensory exam: Not cooperative. Cerebellar: Not cooperative Review of Relevant I have reviewed the following items ivania (where applicable) has been applied. Labs Laboratory Tests Test 10/01/21 08:00 O2 Saturation 98 % (92-99) Arterial Blood pH 7.52 (7.35-7.45) Arterial Blood pCO2 at Patient Temp 30 mmHg (35-46) Arterial Blood pO2 at Patient Temp 143 mmHg (65-108) Arterial Blood HCO3 24 mmol/L (21-28) Arterial Blood Base Excess 2 mmol/L (-3-3) FiO2 35 Medications Current Medications Fentanyl Citrate 30 ml @ 2.5 mls/hr CONT PRN IV SEE PROTOCOL Last administered on 09/24/21at 04:21; Start 09/22/21 at 18:00 Midazolam HCl 100 ml @ 1 mls/hr CONT PRN IV SEE PROTOCOL Last administered on 09/24/21at 04:21; Start 09/22/21 at 18:00 Propofol 100 ml @ 2.244 mls/ hr CONT PRN IV PER PROTOCOL Last administered on 09/22/21at 17:39; Start 09/22/21 at 18:00 Sodium Chloride 500 ml @ 500 mls/hr 1X PRN PRN IV SEE COMMENTS; Start 09/22/21 at 18:00 Atropine Sulfate (ATROPINE 0.5mg SYRINGE) 0.5 mg PRN Q5MIN PRN IV SEE COMMENTS; Start 09/22/21 at 18:00 Famotidine (Pepcid Vial) 20 mg BID IVP Last administered on 09/22/21at 21:58; Start 09/22/21 at 21:00; Stop 09/23/21 at 08:32; Status DC Midazolam HCl (Versed) 2 mg 1X ONCE IV Last administered on 09/22/21at 18:15; Start 09/22/21 at 18:15; Stop 09/22/21 at 18:16; Status DC Lidocaine/ Epinephrine (LIDOCAINE 2%-EPI 1:100,000 multi-dose) 20 ml 1X ONCE IJ Last administered on 09/22/21at 18:17; Start 09/22/21 at 18:15; Stop 09/22/21 at 18:16; Status DC Cefazolin Sodium (Ancef) 1 gm 1X ONCE IVP Last administered on 09/22/21at 18:15; Start 09/22/21 at 18:15; Stop 09/22/21 at 18:16; Status DC Propofol 100 ml @ 2.244 mls/ hr CONT PRN IV PER PROTOCOL; Start 09/22/21 at 18:15; Status UNV Ondansetron HCl (Zofran) 4 mg PRN Q4HRS PRN IVP NAUSEA/VOMITING; Start 09/22/21 at 18:45 Acetaminophen (Tylenol Supp) 650 mg PRN Q6HRS PRN NV MILD PAIN / TEMP > 100.3'F Last administered on 09/25/21at 00:26; Start 09/22/21 at 18:45 Bisacodyl (Dulcolax Supp) 10 mg PRN DAILY PRN NV CONSTIPATION; Start 09/22/21 at 18:45 Promethazine HCl (Phenergan Supp) 12.5 mg PRN Q6HRS PRN NV NAUSEA/VOMITING; Start 09/22/21 at 18:45 Ampicillin Sodium/ Sulbactam Sodium 3 gm/Sodium Chloride 100 ml @ 200 mls/hr Q6HRS IV Last administered on 09/25/21at 12:21; Start 09/22/21 at 18:45; Stop 09/25/21 at 16:21; Status DC Dopamine HCl/ Dextrose 250 ml @ 28.05 mls/ hr CONT PRN IV SEE I/O RECORD Last administered on 09/23/21at 08:44; Start 09/22/21 at 18:45 Lidocaine/ Epinephrine (LIDOCAINE 2%-EPI 1:100,000 multi-dose) 20 ml STK-MED ONCE .ROUTE ; Start 09/22/21 at 18:53; Stop 09/22/21 at 18:53; Status DC Midazolam HCl (Versed) 2 mg STK-MED ONCE .ROUTE ; Start 09/22/21 at 18:53; Stop 09/22/21 at 18:53; Status DC Cefazolin Sodium (Ancef) 1 gm STK-MED ONCE IVP ; Start 09/22/21 at 18:53; Stop 09/22/21 at 18:53; Status DC Fentanyl Citrate (Fentanyl 2ml Vial) 25 mcg PRN Q3HRS PRN IVP SEVERE PAIN 7-10; Start 09/22/21 at 21:30; Status Cancel Famotidine (Pepcid Vial) 20 mg DAILY IVP Last administered on 10/02/21at 09:12; Start 09/23/21 at 09:00 Heparin Sodium (Porcine) (Heparin Sodium) 5,000 unit Q12HR SQ Last administered on 09/23/21at 20:45; Start 09/23/21 at 21:00; Stop 09/23/21 at 22:59; Status DC Norepinephrine Bitartrate 8 mg/ Dextrose 258 ml @ 13.971 mls/ hr CONT PRN IV PER PROTOCOL Last administered on 09/23/21at 22:14; Start 09/23/21 at 11:45 Ampicillin Sodium/ Sulbactam Sodium 3 gm/Sodium Chloride 100 ml @ 200 mls/hr Q12HR IV Last administered on 09/28/21at 07:52; Start 09/25/21 at 21:00; Stop 09/28/21 at 13:20; Status DC Levetiracetam 500 mg/Dextrose 105 ml @ 420 mls/hr Q12HR IV Last administered o n 10/02/21at 09:13; Start 09/26/21 at 04:00 Furosemide (Lasix) 20 mg 1X ONCE IVP Last administered on 09/26/21at 13:15; Start 09/26/21 at 13:15; Stop 09/26/21 at 13:16; Status DC Ampicillin Sodium/ Sulbactam Sodium 3 gm/Sodium Chloride 100 ml @ 200 mls/hr Q6HRS IV Last administered on 10/02/21at 06:05; Start 09/28/21 at 18:00 Acetaminophen (Tylenol) 650 mg PRN Q6HRS PRN PEG MILD PAIN / TEMP > 100.3'F Last administered on 09/30/21at 20:52; Start 09/29/21 at 09:45 Active Scripts Active Reported Urea 227 Gm Cream..g. 1 Tata TP DAILY 30 Days Crestor (Rosuvastatin Calcium) 40 Mg Tablet 1 Tab PO DAILY Namenda (Memantine Hcl) 10 Mg Tablet 1 Tab PO BID Pantoprazole Sodium (Pantoprazole Sodium) 40 Mg Tablet.dr 40 Mg PO DAILYAC Lisinopril 40 Mg Tablet 0.5 Tab PO DAILY Levothyroxine Sodium 50 Mcg Tablet 1 Tab PO DAILY Xolegel (Ketoconazole) 45 Gm Gel..gram. 1 Tata TP BID 30 Days Isosorbide Mononitrate Er (Isosorbide Mononitrate) 60 Mg Tab.er.24h 1 Tab PO DAILY Hydrophor Ointment (Mineral Oil/Hydrophil Petrolat) 454 Gm Oint...g. 454 Gm TP PRN PRN Zetia (Ezetimibe) 10 Mg Tablet 1 Tab PO DAILY 30 Days Donepezil Hcl 10 Mg Tablet 1 Tab PO DAILY Clopidogrel (Clopidogrel Bisulfate) 75 Mg Tablet 75 Mg PO DAILY Celexa (Citalopram Hydrobromide) 40 Mg Tablet 1 Tab PO DAILY Vitamin D3 (Vitamin D) 25 Mcg Tablet 25 Mcg PO DAILY 1,000 UNITS = 25 MCG Thera Tears (Carboxymethylcellulose Sodium) 15 Ml Drops 1 Drop EACHEYE QID Atenolol 25 Mg Tablet 1 Tab PO DAILY Amlodipine Besylate 5 Mg Tablet 5 Mg PO DAILY Vitals/I & O Vital Sign - Last 24 Hours 10/01/21 10/01/21 10/01/21 10/01/21 13:21 14:00 15:00 15:42 Pulse 75 75 Resp 18 18 B/P (MAP) 159/59 (92) 161/64 (96) Pulse Ox 100 100 100 100 O2 Delivery Ventilator Ventilator Ventilator Ventilator 10/01/21 10/01/21 10/01/21 10/01/21 16:00 16:00 17:00 17:49 Temp 99.0 99.0 Pulse 75 75 Resp 18 18 B/P (MAP) 165/65 (98) 163/66 (98) Pulse Ox 100 100 100 O2 Delivery Mechanical Ventilator Ventilator Ventilator Ventilator 10/01/21 10/01/21 10/01/21 10/01/21 18:00 19:00 19:00 20:00 Temp 100.7 100.7 Pulse 75 69 Resp 18 15 B/P (MAP) 165/69 (101) 165/72 (103) Pulse Ox 100 100 100 O2 Delivery Ventilator Ventilator Ventilator Mechanical Ventilator 10/01/21 10/01/21 10/01/21 10/01/21 20:00 21:00 21:02 22:00 Pulse 70 69 69 Resp 16 16 15 B/P (MAP) 169/68 (101) 149/61 (90) 154/66 (95) Pulse Ox 100 100 100 100 O2 Delivery Ventilator Ventilator Ventilator Ventilator 10/01/21 10/01/21 10/02/21 10/02/21 23:55 23:59 00:01 01:00 Temp 100.3 100.3 Pulse 70 72 Resp 19 23 B/P (MAP) 150/59 (89) 166/65 (98) Pulse Ox 100 100 98 O2 Delivery Ventilator Mechanical Ventilator Ventilator Ventilator 10/02/21 10/02/21 10/02/21 10/02/21 02:00 02:45 03:00 04:00 Pulse 70 70 Resp 18 20 B/P (MAP) 159/63 (95) 161/65 (97) Pulse Ox 100 100 100 O2 Delivery Ventilator Ventilator Ventilator Mechanical Ventilator 10/02/21 10/02/21 10/02/21 10/02/21 04:00 05:00 05:00 06:00 Temp 100.9 100.9 Pulse 74 69 70 Resp 27 17 23 B/P (MAP) 163/67 (99) 150/57 (88) 155/60 (91) Pulse Ox 100 100 100 100 O2 Delivery Ventilator Ventilator Ventilator Ventilator 10/02/21 10/02/21 10/02/21 10/02/21 07:00 07:56 08:00 08:00 Temp 99.0 99.0 Pulse 68 68 Resp 23 23 B/P (MAP) 154/65 (94) 175/79 (111) Pulse Ox 100 100 100 O2 Delivery Ventilator Ventilator Ventilator Mechanical Ventilator 10/02/21 10/02/21 10/02/21 10/02/21 09:00 09:31 10:00 11:08 Pulse 71 69 Resp 20 20 B/P (MAP) 149/64 (92) 163/68 (99) Pulse Ox 100 100 100 100 O2 Delivery Ventilator Ventilator Ventilator Ventilator Intake and Output 10/01/21 10/01/21 10/02/21 15:00 23:00 07:00 Intake Total 405 ml 405 ml 1777 ml Output Total 380 ml 415 ml 520 ml Balance 25 ml -10 ml 1257 ml Justicifation of Admission Dx: Justifications for Admission: Justification of Admission Dx: N/A BRIDGETTE ROLAND MD Oct 02, 2021 13:16
--- NOTE | 2021-10-02 14:31 | PDOC ---
KEKE ARGUETA APRN 10/02/21 1431: CARDIO Progress Notes Date and Time Date of Service 10/02/21 Time of Evaluation 1210 Subjective Subjective: Other (intubated ) Vitals Vitals Vital Signs Date Time Temp Pulse Resp B/P (MAP) Pulse Ox O2 Delivery O2 Flow Rate FiO2 10/02/21 14:00 69 20 167/64 (98) 100 Ventilator 10/02/21 11:00 99.1 99.1 Weight Weight [ ] Input and Output Intake and Output Intake and Output 10/02/21 07:00 Intake Total 2587 ml Output Total 1315 ml Balance 1272 ml Intake IV Total 651 ml Tube Feeding 1536 ml Other 400 ml Output Urine Total 1315 ml Physical Exam HEENT: Neck Supple W Full Motion Chest: Symmetric, Other (right chest PPM site drsg intact ) LUNGS: Other (mechanical vent ) Heart: S1S2, RRR (paced ), other (distant heart tones ) Abdomen: Other (soft ) Extremities: No Edema Neurology: other (off sedation, minimally responsive ) Assessment Assessment 1. Cardiac arrest due to pacemaker battery depletion 2. SSS s/p PPM. s/p generator change. AV paced 3. NSTEMI - type 2. 4. Cardiomyopathy; echo with LVEF 45% 5. EDWIN; better 6. Hypertension; elevated 7. Acute respiratory failure due to #1 8. Probable aspiration PNA 9. Elevated LFTs, shock liver; improved 10. Anoxic encephalopathy; off sedation, minimal responsiveness to painful stimuli . 11. Possible seizure; on keppra 11. Thrombocytopenia; heparin discontinued Recommendations AM labs Hydralazine IV PRN Supportive care from a CV standpoint Justicifation of Admission Dx: Justifications for Admission: Justification of Admission Dx: N/A DENIS CHEUNG MD 10/02/21 1438: CARDIO Progress Notes Plan Plan Pt. seen and examined. Agree with above [employer] note. Supportive care. Awaiting family decision. Pacer functioning well. KEKE ARGUETA APRN Oct 02, 2021 14:31 DENIS CHEUNG MD Oct 02, 2021 14:38
[2021-10-03] VITALS (24 sets, daily range): BP systolic 123–169; BP diastolic 50–76
[2021-10-03] MEDS: AMPICILLIN/SULBACTAM 3 GM in IV NORMAL SALINE 100ML 100 ML IV SCH ×5 (00:17→23:31)
[2021-10-03 04:50] LABS: BASO % 1 % (0-3); EOS # 0.3 x10^3/uL (0.0-0.7); EOS % 4 % (0-3); HEMATOCRIT 26.2 % (39.0-53.0); HEMOGLOBIN 8.8 g/dL (13.0-17.5); LYMPH # 0.7 x10^3/uL (1.0-4.8); LYMPH % 10 % (24-48); MEAN CORPUSCULAR HEMOGLOBIN 32 pg (25-35); MEAN CORPUSCULAR HGB CONC 34 g/dL (31-37); MEAN CORPUSCULAR VOLUME 96 fL (79-100); MONO # 0.2 x10^3/uL (0.0-1.1); MONO % 4 % (0-9); NEUT # 5.4 x10^3/uL (1.8-7.7); NEUT % 81 % (31-73); PLATELET COUNT 161 x10^3/uL (140-400); RED BLOOD COUNT 2.71 x10^6/uL (4.30-5.70); RED CELL DISTRIBUTION WIDTH 14.4 % (11.5-14.5); WHITE BLOOD COUNT 6.6 x10^3/uL (4.0-11.0)
[2021-10-03 05:01] LABS: CALCIUM 8.1 mg/dL (8.5-10.1); CREATININE 0.9 mg/dL (0.7-1.3); POTASSIUM 3.5 mmol/L (3.5-5.1)
--- NOTE | 2021-10-03 08:25 | PDOC ---
PULMONARY PROGRESS NOTES DATE: 10/03/21 TIME: 08:25 Subjective No change in neuro status patient not very responsive, barely moves to sternal rub Sedation discontinued several days ago Vitals Vital Signs Date Time Temp Pulse Resp B/P (MAP) Pulse Ox O2 Delivery O2 Flow Rate FiO2 10/03/21 08:15 99 Ventilator 10/03/21 06:00 69 12 155/66 (95) 10/03/21 05:00 98.8 98.8 Comments ros unable to obtain on vent not following commands HEENT: Other (nc at orally intubated nose clear neck no lad no thyromegaly) Lungs: Clear Cardiovascular: S1, S2 Abdomen: Soft Neuro Exam: Alert Extremities: Other (Some edema) Skin: Warm Labs Laboratory Tests Test 10/03/21 04:25 White Blood Count 6.6 x10^3/uL (4.0-11.0) Red Blood Count 2.71 x10^6/uL (4.30-5.70) Hemoglobin 8.8 g/dL (13.0-17.5) Hematocrit 26.2 % (39.0-53.0) Mean Corpuscular Volume 96 fL (79-100) Mean Corpuscular Hemoglobin 32 pg (25-35) Mean Corpuscular Hemoglobin Concent 34 g/dL (31-37) Red Cell Distribution Width 14.4 % (11.5-14.5) Platelet Count 161 x10^3/uL (140-400) Neutrophils (%) (Auto) 81 % (31-73) Lymphocytes (%) (Auto) 10 % (24-48) Monocytes (%) (Auto) 4 % (0-9) Eosinophils (%) (Auto) 4 % (0-3) Basophils (%) (Auto) 1 % (0-3) Neutrophils # (Auto) 5.4 x10^3/uL (1.8-7.7) Lymphocytes # (Auto) 0.7 x10^3/uL (1.0-4.8) Monocytes # (Auto) 0.2 x10^3/uL (0.0-1.1) Eosinophils # (Auto) 0.3 x10^3/uL (0.0-0.7) Basophils # (Auto) 0.0 x10^3/uL (0.0-0.2) Sodium Level 154 mmol/L (136-145) Potassium Level 3.5 mmol/L (3.5-5.1) Chloride Level 119 mmol/L (98-107) Carbon Dioxide Level 27 mmol/L (21-32) Anion Gap 8 (6-14) Blood Urea Nitrogen 33 mg/dL (8-26) Creatinine 0.9 mg/dL (0.7-1.3) Estimated GFR (Cockcroft-Gault) 80.0 Glucose Level 148 mg/dL (70-99) Calcium Level 8.1 mg/dL (8.5-10.1) Laboratory Tests Test 10/03/21 04:25 White Blood Count 6.6 x10^3/uL (4.0-11.0) Red Blood Count 2.71 x10^6/uL (4.30-5.70) Hemoglobin 8.8 g/dL (13.0-17.5) Hematocrit 26.2 % (39.0-53.0) Mean Corpuscular Volume 96 fL (79-100) Mean Corpuscular Hemoglobin 32 pg (25-35) Mean Corpuscular Hemoglobin Concent 34 g/dL (31-37) Red Cell Distribution Width 14.4 % (11.5-14.5) Platelet Count 161 x10^3/uL (140-400) Neutrophils (%) (Auto) 81 % (31-73) Lymphocytes (%) (Auto) 10 % (24-48) Monocytes (%) (Auto) 4 % (0-9) Eosinophils (%) (Auto) 4 % (0-3) Basophils (%) (Auto) 1 % (0-3) Neutrophils # (Auto) 5.4 x10^3/uL (1.8-7.7) Lymphocytes # (Auto) 0.7 x10^3/uL (1.0-4.8) Monocytes # (Auto) 0.2 x10^3/uL (0.0-1.1) Eosinophils # (Auto) 0.3 x10^3/uL (0.0-0.7) Basophils # (Auto) 0.0 x10^3/uL (0.0-0.2) Sodium Level 154 mmol/L (136-145) Potassium Level 3.5 mmol/L (3.5-5.1) Chloride Level 119 mmol/L (98-107) Carbon Dioxide Level 27 mmol/L (21-32) Anion Gap 8 (6-14) Blood Urea Nitrogen 33 mg/dL (8-26) Creatinine 0.9 mg/dL (0.7-1.3) Estimated GFR (Cockcroft-Gault) 80.0 Glucose Level 148 mg/dL (70-99) Calcium Level 8.1 mg/dL (8.5-10.1) Medications Active Scripts Medications Dose Route/Sig Max Daily Dose Days Date Category Dose Instructions Urea 227 Gm Cream..g. 1 Tata TP DAILY 30 09/23/21 Reported Crestor (Rosuvastatin Calcium) 40 Mg Tablet 1 Tab PO DAILY 09/23/21 Reported Namenda (Memantine Hcl) 10 Mg Tablet 1 Tab PO BID 09/23/21 Reported Pantoprazole Sodium (Pantoprazole Sodium) 40 Mg Tablet.dr 40 Mg PO DAILYAC 09/23/21 Reported Lisinopril 40 Mg Tablet 0.5 Tab PO DAILY 09/23/21 Reported Levothyroxine Sodium 50 Mcg Tablet 1 Tab PO DAILY 09/23/21 Reported Xolegel (Ketoconazole) 45 Gm Gel..gram. 1 Tata TP BID 30 09/23/21 Reported Isosorbide Mononitrate Er (Isosorbide Mononitrate) 60 Mg Tab.er.24h 1 Tab PO DAILY 09/23/21 Reported Hydrophor Ointment (Mineral Oil/Hydrophil Petrolat) 454 Gm Oint...g. 454 Gm TP PRN PRN 09/23/21 Reported Zetia (Ezetimibe) 10 Mg Tablet 1 Tab PO DAILY 30 09/23/21 Reported Donepezil Hcl 10 Mg Tablet 1 Tab PO DAILY 09/23/21 Reported Clopidogrel (Clopidogrel Bisulfate) 75 Mg Tablet 75 Mg PO DAILY 09/23/21 Reported Celexa (Citalopram Hydrobromide) 40 Mg Tablet 1 Tab PO DAILY 09/23/21 Reported Vitamin D3 (Vitamin D) 25 Mcg Tablet 25 Mcg PO DAILY 09/23/21 Reported 1,000 UNITS = 25 MCG Thera Tears (Carboxymethylcellulose Sodium) 15 Ml Drops 1 Drop EACHEYE QID 09/23/21 Reported Atenolol 25 Mg Tablet 1 Tab PO DAILY 09/23/21 Reported Amlodipine Besylate 5 Mg Tablet 5 Mg PO DAILY 09/23/21 Reported Comments cxr reviewed Stable diffuse interstitial infiltrate with suspected trace left pleural effusion. ett ok Impression . IMPRESSION: 1. Acute hypoxemic respiratory failure secondary to complete heart block. 2. 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 3. Acute kidney injury. 4. Elevated liver chemistries. 5. Non-ST segment elevation myocardial infarction. 6. Severe protein malnutrition, present upon admission. 7. Respiratory alkalosis. Minute ventilation adjust 8. Patient does assist ventilator, brainstem function intact 9. Possible seizures 10. Anoxic brain injury Plan . Updated 10/03 Continue current support Patient and family wishes to wait a couple more days before final decision 10/02 nasal 9 discussed with financial counselor meeting later today with Dr. Flood I would recommend discontinuing support allow natural CT MERCEDES MD Oct 03, 2021 08:25
--- NOTE | 2021-10-03 08:41 | PDOC ---
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 CN: no focal findings. Muscle tone: normal. Muscle strength: Slight withdrawal to pain on the right DTR: 1+ Plantar reflex: Silent Gait: not examined. Sensory exam: Not cooperative. Cerebellar: Not cooperative Review of Relevant I have reviewed the following items ivania (where applicable) has been applied. Labs Laboratory Tests Test 10/03/21 04:25 White Blood Count 6.6 x10^3/uL (4.0-11.0) Red Blood Count 2.71 x10^6/uL (4.30-5.70) Hemoglobin 8.8 g/dL (13.0-17.5) Hematocrit 26.2 % (39.0-53.0) Mean Corpuscular Volume 96 fL (79-100) Mean Corpuscular Hemoglobin 32 pg (25-35) Mean Corpuscular Hemoglobin Concent 34 g/dL (31-37) Red Cell Distribution Width 14.4 % (11.5-14.5) Platelet Count 161 x10^3/uL (140-400) Neutrophils (%) (Auto) 81 % (31-73) Lymphocytes (%) (Auto) 10 % (24-48) Monocytes (%) (Auto) 4 % (0-9) Eosinophils (%) (Auto) 4 % (0-3) Basophils (%) (Auto) 1 % (0-3) Neutrophils # (Auto) 5.4 x10^3/uL (1.8-7.7) Lymphocytes # (Auto) 0.7 x10^3/uL (1.0-4.8) Monocytes # (Auto) 0.2 x10^3/uL (0.0-1.1) Eosinophils # (Auto) 0.3 x10^3/uL (0.0-0.7) Basophils # (Auto) 0.0 x10^3/uL (0.0-0.2) Sodium Level 154 mmol/L (136-145) Potassium Level 3.5 mmol/L (3.5-5.1) Chloride Level 119 mmol/L (98-107) Carbon Dioxide Level 27 mmol/L (21-32) Anion Gap 8 (6-14) Blood Urea Nitrogen 33 mg/dL (8-26) Creatinine 0.9 mg/dL (0.7-1.3) Estimated GFR (Cockcroft-Gault) 80.0 Glucose Level 148 mg/dL (70-99) Calcium Level 8.1 mg/dL (8.5-10.1) Laboratory Tests Test 10/03/21 04:25 White Blood Count 6.6 x10^3/uL (4.0-11.0) Red Blood Count 2.71 x10^6/uL (4.30-5.70) Hemoglobin 8.8 g/dL (13.0-17.5) Hematocrit 26.2 % (39.0-53.0) Mean Corpuscular Volume 96 fL (79-100) Mean Corpuscular Hemoglobin 32 pg (25-35) Mean Corpuscular Hemoglobin Concent 34 g/dL (31-37) Red Cell Distribution Width 14.4 % (11.5-14.5) Platelet Count 161 x10^3/uL (140-400) Neutrophils (%) (Auto) 81 % (31-73) Lymphocytes (%) (Auto) 10 % (24-48) Monocytes (%) (Auto) 4 % (0-9) Eosinophils (%) (Auto) 4 % (0-3) Basophils (%) (Auto) 1 % (0-3) Neutrophils # (Auto) 5.4 x10^3/uL (1.8-7.7) Lymphocytes # (Auto) 0.7 x10^3/uL (1.0-4.8) Monocytes # (Auto) 0.2 x10^3/uL (0.0-1.1) Eosinophils # (Auto) 0.3 x10^3/uL (0.0-0.7) Basophils # (Auto) 0.0 x10^3/uL (0.0-0.2) Sodium Level 154 mmol/L (136-145) Potassium Level 3.5 mmol/L (3.5-5.1) Chloride Level 119 mmol/L (98-107) Carbon Dioxide Level 27 mmol/L (21-32) Anion Gap 8 (6-14) Blood Urea Nitrogen 33 mg/dL (8-26) Creatinine 0.9 mg/dL (0.7-1.3) Estimated GFR (Cockcroft-Gault) 80.0 Glucose Level 148 mg/dL (70-99) Calcium Level 8.1 mg/dL (8.5-10.1) Medications Current Medications Fentanyl Citrate 30 ml @ 2.5 mls/hr CONT PRN IV SEE PROTOCOL Last administered on 09/24/21at 04:21; Start 09/22/21 at 18:00 Midazolam HCl 100 ml @ 1 mls/hr CONT PRN IV SEE PROTOCOL Last administered on 09/24/21at 04:21; Start 09/22/21 at 18:00 Propofol 100 ml @ 2.244 mls/ hr CONT PRN IV PER PROTOCOL Last administered on 09/22/21at 17:39; Start 09/22/21 at 18:00 Sodium Chloride 500 ml @ 500 mls/hr 1X PRN PRN IV SEE COMMENTS; Start 09/22/21 at 18:00 Atropine Sulfate (ATROPINE 0.5mg SYRINGE) 0.5 mg PRN Q5MIN PRN IV SEE COMMENTS; Start 09/22/21 at 18:00 Famotidine (Pepcid Vial) 20 mg BID IVP Last administered on 09/22/21at 21:58; Start 09/22/21 at 21:00; Stop 09/23/21 at 08:32; Status DC Midazolam HCl (Versed) 2 mg 1X ONCE IV Last administered on 09/22/21at 18:15; Start 09/22/21 at 18:15; Stop 09/22/21 at 18:16; Status DC Lidocaine/ Epinephrine (LIDOCAINE 2%-EPI 1:100,000 multi-dose) 20 ml 1X ONCE IJ Last administered on 09/22/21at 18:17; Start 09/22/21 at 18:15; Stop 09/22/21 at 18:16; Status DC Cefazolin Sodium (Ancef) 1 gm 1X ONCE IVP Last administered on 09/22/21at 18:15; Start 09/22/21 at 18:15; Stop 09/22/21 at 18:16; Status DC Propofol 100 ml @ 2.244 mls/ hr CONT PRN IV PER PROTOCOL; Start 09/22/21 at 18:15; Status UNV Ondansetron HCl (Zofran) 4 mg PRN Q4HRS PRN IVP NAUSEA/VOMITING; Start 09/22/21 at 18:45 Acetaminophen (Tylenol Supp) 650 mg PRN Q6HRS PRN SC MILD PAIN / TEMP > 100.3'F Last administered on 09/25/21at 00:26; Start 09/22/21 at 18:45 Bisacodyl (Dulcolax Supp) 10 mg PRN DAILY PRN SC CONSTIPATION; Start 09/22/21 at 18:45 Promethazine HCl (Phenergan Supp) 12.5 mg PRN Q6HRS PRN SC NAUSEA/VOMITING; Start 09/22/21 at 18:45 Ampicillin Sodium/ Sulbactam Sodium 3 gm/Sodium Chloride 100 ml @ 200 mls/hr Q6HRS IV Last administered on 09/25/21at 12:21; Start 09/22/21 at 18:45; Stop 09/25/21 at 16:21; Status DC Dopamine HCl/ Dextrose 250 ml @ 28.05 mls/ hr CONT PRN IV SEE I/O RECORD Last administered on 09/23/21at 08:44; Start 09/22/21 at 18:45 Lidocaine/ Epinephrine (LIDOCAINE 2%-EPI 1:100,000 multi-dose) 20 ml STK-MED ONCE .ROUTE ; Start 09/22/21 at 18:53; Stop 09/22/21 at 18:53; Status DC Midazolam HCl (Versed) 2 mg STK-MED ONCE .ROUTE ; Start 09/22/21 at 18:53; Stop 09/22/21 at 18:53; Status DC Cefazolin Sodium (Ancef) 1 gm STK-MED ONCE IVP ; Start 09/22/21 at 18:53; Stop 09/22/21 at 18:53; Status DC Fentanyl Citrate (Fentanyl 2ml Vial) 25 mcg PRN Q3HRS PRN IVP SEVERE PAIN 7-10; Start 09/22/21 at 21:30; Status Cancel Famotidine (Pepcid Vial) 20 mg DAILY IVP Last administered on 10/02/21at 09:12; Start 09/23/21 at 09:00 Heparin Sodium (Porcine) (Heparin Sodium) 5,000 unit Q12HR SQ Last administered on 09/23/21at 20:45; Start 09/23/21 at 21:00; Stop 09/23/21 at 22:59; Status DC Norepinephrine Bitartrate 8 mg/ Dextrose 258 ml @ 13.971 mls/ hr CONT PRN IV PER PROTOCOL Last administered on 09/23/21at 22:14; Start 09/23/21 at 11:45 Ampicillin Sodium/ Sulbactam Sodium 3 gm/Sodium Chloride 100 ml @ 200 mls/hr Q12HR IV Last administered on 09/28/21at 07:52; Start 09/25/21 at 21:00; Stop 09/28/21 at 13:20; Status DC Levetiracetam 500 mg/Dextrose 105 ml @ 420 mls/hr Q12HR IV Last administered on 10/02/21at 21:28; Start 09/26/21 at 04:00 Furosemide (Lasix) 20 mg 1X ONCE IVP Last administered on 09/26/21at 13:15; Start 09/26/21 at 13:15; Stop 09/26/21 at 13:16; Status DC Ampicillin Sodium/ Sulbactam Sodium 3 gm/Sodium Chloride 100 ml @ 200 mls/hr Q6HRS IV Last administered on 10/03/21at 06:06; Start 09/28/21 at 18:00 Acetaminophen (Tylenol) 650 mg PRN Q6HRS PRN PEG MILD PAIN / TEMP > 100.3'F Last administered on 09/30/21at 20:52; Start 09/29/21 at 09:45 Active Scripts Active Reported Urea 227 Gm Cream..g. 1 Tata TP DAILY 30 Days Crestor (Rosuvastatin Calcium) 40 Mg Tablet 1 Tab PO DAILY Namenda (Memantine Hcl) 10 Mg Tablet 1 Tab PO BID Pantoprazole Sodium (Pantoprazole Sodium) 40 Mg Tablet.dr 40 Mg PO DAILYAC Lisinopril 40 Mg Tablet 0.5 Tab PO DAILY Levothyroxine Sodium 50 Mcg Tablet 1 Tab PO DAILY Xolegel (Ketoconazole) 45 Gm Gel..gram. 1 Tata TP BID 30 Days Isosorbide Mononitrate Er (Isosorbide Mononitrate) 60 Mg Tab.er.24h 1 Tab PO DAILY Hydrophor Ointment (Mineral Oil/Hydrophil Petrolat) 454 Gm Oint...g. 454 Gm TP PRN PRN Zetia (Ezetimibe) 10 Mg Tablet 1 Tab PO DAILY 30 Days Donepezil Hcl 10 Mg Tablet 1 Tab PO DAILY Clopidogrel (Clopidogrel Bisulfate) 75 Mg Tablet 75 Mg PO DAILY Celexa (Citalopram Hydrobromide) 40 Mg Tablet 1 Tab PO DAILY Vitamin D3 (Vitamin D) 25 Mcg Tablet 25 Mcg PO DAILY 1,000 UNITS = 25 MCG Thera Tears (Carboxymethylcellulose Sodium) 15 Ml Drops 1 Drop EACHEYE QID Atenolol 25 Mg Tablet 1 Tab PO DAILY Amlodipine Besylate 5 Mg Tablet 5 Mg PO DAILY Vitals/I & O Vital Sign - Last 24 Hours 10/02/21 10/02/21 10/02/21 10/02/21 09:00 09:31 10:00 11:00 Temp 99.1 99.1 Pulse 71 69 69 Resp 20 20 20 B/P (MAP) 149/64 (92) 163/68 (99) 165/67 (99) Pulse Ox 100 100 100 100 O2 Delivery Ventilator Ventilator Ventilator Ventilator 10/02/21 10/02/21 10/02/21 10/02/21 11:08 12:00 12:00 13:00 Pulse 69 69 Resp 20 20 B/P (MAP) 170/70 (103) 156/66 (96) Pulse Ox 100 100 100 O2 Delivery Ventilator Mechanical Ventilator Ventilator Ventilator 10/02/21 10/02/21 10/02/21 10/02/21 13:21 14:00 15:00 15:01 Pulse 69 68 Resp 20 20 B/P (MAP) 167/64 (98) 176/66 (102) Pulse Ox 100 100 100 100 O2 Delivery Ventilator Ventilator Ventilator Ventilator 10/02/21 10/02/21 10/02/21 10/02/21 16:00 16:00 17:00 17:06 Temp 99.0 99.0 Pulse 70 72 Resp 20 20 B/P (MAP) 152/62 (92) 152/52 (85) Pulse Ox 100 100 100 O2 Delivery Mechanical Ventilator Ventilator Ventilator Ventilator 10/02/21 10/02/21 10/02/21 10/02/21 18:00 19:00 20:00 20:00 Temp 99.2 99.2 Pulse 74 71 70 Resp 20 20 12 B/P (MAP) 162/53 (89) 155/59 (91) 172/67 (102) Pulse Ox 100 100 100 O2 Delivery Ventilator Ventilator Mechanical Ventilator Ventilator 10/02/21 10/02/21 10/02/21 10/02/21 20:36 21:00 22:00 22:35 Pulse 68 68 Resp 12 12 B/P (MAP) 148/62 (90) 165/67 (99) Pulse Ox 100 100 100 100 O2 Delivery Ventilator Ventilator Ventilator Ventilator 10/02/21 10/03/21 10/03/21 10/03/21 23:00 00:00 00:00 00:20 Temp 99.1 99.1 Pulse 68 68 Resp 12 12 B/P (MAP) 158/69 (98) 169/76 (107) Pulse Ox 100 100 100 O2 Delivery Ventilator Mechanical Ventilator Ventilator Ventilator 10/03/21 10/03/21 10/03/21 10/03/21 01:00 02:00 03:00 03:20 Pulse 68 69 69 Resp 12 12 12 B/P (MAP) 149/59 (89) 149/57 (87) 159/63 (95) Pulse Ox 100 100 100 100 O2 Delivery Ventilator Ventilator Ventilator Ventilator 10/03/21 10/03/21 10/03/21 10/03/21 04:00 04:00 05:00 05:36 Temp 98.8 98.8 Pulse 68 69 Resp 12 12 B/P (MAP) 155/63 (93) 162/67 (98) Pulse Ox 100 100 100 O2 Delivery Ventilator Mechanical Ventilator Ventilator Ventilator 10/03/21 10/03/21 06:00 08:15 Pulse 69 Resp 12 B/P (MAP) 155/66 (95) Pulse Ox 100 99 O2 Delivery Ventilator Ventilator Intake and Output 10/02/21 10/02/21 10/03/21 15:00 23:00 07:00 Intake Total 200 ml 305 ml 1800 ml Output Total 515 ml 520 ml 535 ml Balance -315 ml -215 ml 1265 ml Justicifation of Admission Dx: Justifications for Admission: Justification of Admission Dx: N/A BRIDGETTE ROLAND MD Oct 03, 2021 08:40
[2021-10-03] MEDS: FAMOTIDINE 20 MG/2 ML VIAL IVP SCH ×2 (08:56→21:09)
[2021-10-03] MEDS: levETIRAcetam 500 MG in IV DEXTROSE 5% 100ML 100 ML IV SCH ×2 (08:57→21:09)
--- NOTE | 2021-10-03 09:10 | PDOC ---
EMIR TERRELL PREPARATORY TECHNICIAN 10/03/21 0910: CARDIO Progress Notes Date and Time Date of Service 10/03/2021 Time of Evaluation 0850 Subjective Subjective: Other (intubated ) Vitals Vitals Vital Signs Date Time Temp Pulse Resp B/P (MAP) Pulse Ox O2 Delivery O2 Flow Rate FiO2 10/03/21 08:15 99 Ventilator 10/03/21 06:00 69 12 155/66 (95) 10/03/21 05:00 98.8 98.8 Weight Weight [ ] Input and Output Intake and Output Intake and Output 10/03/21 07:00 Intake Total 2305 ml Output Total 1570 ml Balance 735 ml Intake IV Total 338 ml Tube Feeding 1566 ml Other 401 ml Output Urine Total 1570 ml Laboratory Labs Laboratory Tests Test 10/03/21 04:25 White Blood Count 6.6 x10^3/uL (4.0-11.0) Red Blood Count 2.71 x10^6/uL (4.30-5.70) Hemoglobin 8.8 g/dL (13.0-17.5) Hematocrit 26.2 % (39.0-53.0) Mean Corpuscular Volume 96 fL (79-100) Mean Corpuscular Hemoglobin 32 pg (25-35) Mean Corpuscular Hemoglobin Concent 34 g/dL (31-37) Red Cell Distribution Width 14.4 % (11.5-14.5) Platelet Count 161 x10^3/uL (140-400) Neutrophils (%) (Auto) 81 % (31-73) Lymphocytes (%) (Auto) 10 % (24-48) Monocytes (%) (Auto) 4 % (0-9) Eosinophils (%) (Auto) 4 % (0-3) Basophils (%) (Auto) 1 % (0-3) Neutrophils # (Auto) 5.4 x10^3/uL (1.8-7.7) Lymphocytes # (Auto) 0.7 x10^3/uL (1.0-4.8) Monocytes # (Auto) 0.2 x10^3/uL (0.0-1.1) Eosinophils # (Auto) 0.3 x10^3/uL (0.0-0.7) Basophils # (Auto) 0.0 x10^3/uL (0.0-0.2) Sodium Level 154 mmol/L (136-145) Potassium Level 3.5 mmol/L (3.5-5.1) Chloride Level 119 mmol/L (98-107) Carbon Dioxide Level 27 mmol/L (21-32) Anion Gap 8 (6-14) Blood Urea Nitrogen 33 mg/dL (8-26) Creatinine 0.9 mg/dL (0.7-1.3) Estimated GFR (Cockcroft-Gault) 80.0 Glucose Level 148 mg/dL (70-99) Calcium Level 8.1 mg/dL (8.5-10.1) Physical Exam HEENT: Neck Supple W Full Motion Chest: Symmetric, Other (right chest PPM site drsg intact ) LUNGS: Other (mechanical vent ) Heart: RRR (AV paced), other (distant heart tones ) Abdomen: Other (soft ) Extremities: No Edema Neurology: other (off sedation, minimally responsive to tactile stimuli) Assessment Assessment 1. Cardiac arrest due to pacemaker battery depletion 2. SSS s/p PPM. s/p generator change AV pacing 3. NSTEMI - type 2. 4. Cardiomyopathy; echo with LVEF 45% 5. EDWIN: much improved 6. Cardiogenic shock: BP better 7. Acute respiratory failure due to #1 8. Probable aspiration PNA; febrile 9. Elevated LFTs, shock liver; improving 10. Anoxic Encephalopathy;only responsive to tactile stimuli 11. Thrombocytopenia; PLT up to 105 Recommendations Lasix PRN, dose today Ongoing antibiotic therapy for probable aspiration Poor prognosis, supportive care. Justicifation of Admission Dx: Justifications for Admission: Justification of Admission Dx: N/A DENIS CHEUNG MD 10/03/211937: CARDIO Progress Notes Plan Plan Pt. seen and examined. 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 Supportive care. Pls call with any questions. We will f/u on wednesday again. Thanks EMIR TERRELL APRN Oct 03, 2021 09:10 DENIS CHEUNG MD Oct 03, 2021 19:38
--- NOTE | 2021-10-03 20:11 | PDOC ---
[employer] PROGRESS NOTE Date of Service DOS: DATE: 10/03/21 TIME: 20:09 Chief Complaint Chief Complaint Acute hypoxic respiratory failure - likely due to aspiration pneumonia from vomiting likely from symptomatic 3rd degree heart block. Will cont vent, wean O2 as tolerated. Unasyn for aspiration pneumonia coverage. Consult pulmonology for vent management assistance PEA arrest - likely from above aspiration event, complicated by 3rd degree heart block. ROSC obtained Third degree heart block - s/p PPM generator change with apparent recovery of heart rate. Cont dopamine. ICU admission Abnormal chest CT - likely due to due to pneumonia Nausea and vomiting - likely from CHB, will treat for pneumonia, will rule out other infectious etiology. IV antiemetics Fall - second fall in a week. If neurologic recovery occurs needs gait testing, though likely this was related to cardiac event Closed head injury - posterior scalp abrasion, local wound care. Monitor neurologic function. Anemia - will check iron studies, likely of chronic disease Thrombocytopenia - unclear etiology, will trend EDWIN - likely vasomotor nephropathy from arrest. Family does not know of any history of CKD, will order [facility] records Lactic acidosis - likely due to hypoxia, will trend Transaminitis - likely related to shock liver, will monitor Elevated troponin - demand ischemia from 3rd degree heart block, likely, will trend out. HTN - will add back home meds as BP allows HLD - statin when taking PO Patient family arrived next 24 hours to discuss ongoing plan History of Present Illness History of Present Illness Mr Cerda is an 86-year-old male with PMHx HTN, HLD s/p PPM who presented to [facility] in [place] via EMS after a PEA cardiac arrest. Per his son, he was at home and in the presence of son and son-in-law when he was observed actively choking and subsequently falling on the floor with significant amount of emesis that was nonbloody and nonbilious in nature. Son reports vomit with recently ingested food and laying his father on his side and cleaning out his mouth while son-in-law called EMS. On EMS arrival ~3 minutes later, patient was unresponsive and cyanotic and they intubated. En-route patient was found to be pulseless in PEA and appropriate ACLS measures were followed with application of Howard device for chest compressions, and per report had a total of x2 epinephrine administered via left tibial IO. After approximately 5 minutes ROSC was obtained. In ED was noted unresponsive with pinpoint pupils and GCS 3 with no purposeful movements. Per EMS report and son the patient takes Plavix, lisinopril, rosuvastatin and citalopram at home. He has a pacemaker per son, which was placed in [place] over 10 years ago, and the son says he follows at [facility], doesn't know about pacer follow up. Per son he fell 4 days prior and [facility], noted on his occiput. Family notes he has been more weak than usual over past 72 hours, no travel or sick contacts. Is fully vaccinated against COVID 19. EKG appeared with third-degree heart block at 42 bpm, left axis deviation, T wave inversion noted in lead I, III, V2-6, no STEMI Vitals obtained concerning for marked bradycardia and no respiratory effort Labs with WBC 9.1, Hb 11.4, platelets 128, ABG 7.2 7/42/459 on 100% FiO2, rapid COVID-19 negative, NA 137, K4.2, BUN 50, CR 2, glucose 247, lactic acid 8.6, calcium 8.6, bilirubin 0.6, AST 131, ALT 157, alkaline phosphatase 90, ammonia 25, albumin 3, troponin 0.134, INR 1.1, urinalysis bland. CT head and neck with no acute abnormalities. CT chest with bibasilar infiltrates and NGT and ETT in good positioning. school bus monitor concerning for third-degree heart block, with rate in the 20s, therefore 1 mg epinephrine administered with minimal improvement in HR, then 1 mg atropine without significant improvement, then dopamine gtt without sustained improvement. 3 L IV fluid administered and unasyn for aspiration pneumonitis. Ultimately was responsive to transcutaneous pacing and after discussion with cardiology he was transferred to [facility] for further care. 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 Seen in ICU. Discussed with son bedside. 09/23: Afebrile, on vent with FiO2 50%, PEEP 5. Continue dopamine gtt. We will continue Unasyn for aspiration pneumonia. Chest x-ray showed suspected partially consolidated left lower lobe infiltrate superimposed on right lower and bilateral upper lobe multifocal interstitial infiltrate.. Critical care time 30 minutes spent reviewing charts, general labs, reviewing imaging, and discussion with RN. 09/24: Afebrile. On vent with FiO2 40%, PEEP 5. Remains on pressor support. Off dopamine. Will continue Unasyn for pneumonia. Continue supportive care, continue to wean off vent. Critical care time 30 minutes spent reviewing charts, general labs, reviewing imaging, discussion with Dr. Mcdaniel, and discussion with RN. 09/25: Low-grade fever overnight, T-max 100.6 F. On vent with FiO2 35%, PEEP 5. Chest x-ray yesterday showed diffuse increased interstitial opacity likely due to interstitial infiltrate. Continue IV antibiotics. He has been off sedation for the past 24 hours. Platelets have steadily dropped; platelets 89 today. I discussion with daughter and son-in-law by phone about concerns for worsening bruising and, cytopenia. They are agreeable to no chest compressions, as to not cause any further damage that may lead to prolonged intubation. We will continue to wean off ventilator. 30 minutes critical care time spent reviewing charts, reviewing labs, reviewing imaging, discussion with RN, and discussion with Dr. Ortiz. 09/26: Afebrile. On vent with FiO2 35%, PEEP 5. Chest x-ray today showing stable diffuse interstitial infiltrate. Platelets [address] Brand was consulted yesterday; he is discussed with family the likely poor prognosis. Sister wants to fly in from [place] to see him. Family would like DNR but chemical code; son-in-law will discuss with the rest of family. Critical care time 30 minutes spent reviewing chart, reviewing labs, reviewing imaging, discussing with Dr. Ortiz. 09/27: Afebrile; on vent with FiO2 50%, PEEP 5. Off. For 72 hours. Some spont aneous movements noted this morning. I believe family is flying in from [place] to see him prior to making full DNR; chemical code. Critical care time 30 minutes spent reviewing charts, general labs, reviewing imaging, and discussion with RN. 09/28: Febrile overnight, T-max 102.0 F. 09/29 Patient evaluated examined at bedside. Remains off sedation. But still pretty unresponsive. Absent brainstem reflexes. Will attempt to contact family today to see if they are in fact coming in from [place]. Still on Levophed and dopamine. . Critical care time 30 minutes spent reviewing charts, reviewing labs, imaging, discussion with RN. 09/30 Patient evaluated and examined at bedside. Still off sedation and unresponsive. Still on Levophed for blood pressure support. Family supposed to arrive today for discussion of ongoing care. Critical care time 30 minutes spent reviewing charts, reviewing labs, imaging, discussion with RN. 10/01 Patient evaluated and examined at bedside. Still intubated and unresponsive. R equiring pressors. Talk to patient's son on phone today for 15 minutes discussing advanced care planning. He reported that she has not been able to discuss ongoing care with his sister as she works in the afternoons and he works in the evenings. Provided clinical updates to him told him about no real improvement at this point. Still remains on high ventilator settings. Planning to meet with him tomorrow afternoon at bedside for further discussion.Critical care time 30 minutes spent reviewing charts, reviewing labs, imaging, discussion with RN 10/02 Patient evaluated examined at bedside. Still intubated minimally responsive emma n without sedation. Waiting for son to arrive at bedside for care discussion. Otherwise continuing current plans. I spent 35 minutes critical care time reviewing charts labs imaging and discussion with subspecialist and nursing team. 10/03 Patient evaluated examined at bedside. I discussed with the family yesterday for approximately 35 minutes ongoing care plans. During that time patient did have some extremity movement along with some head movement showing discomfort from the ventilator. With this family would like to continue care for now. I spoke with them again at bedside today and that they would like to continue on until at least tomorrow evening. Still think very poor prognosis. However will honor family wishes. Plan of care discussed with bedside RN. I spent 35 minutes critical care time reviewing charts labs imaging and discussion with specialists and nursing team Vitals/I&O Vitals/I&O: Vital Signs Date Time Temp Pulse Resp B/P (MAP) Pulse Ox O2 Delivery O2 Flow Rate FiO2 10/03/21 18:10 99 Ventilator 10/03/21 18:00 70 16 146/58 (87) 10/03/21 16:00 98.7 98.7 I & O 10/02/21 10/02/21 10/03/21 15:00 23:00 07:00 Intake Total 200 ml 305 ml 1800 ml Output Total 515 ml 520 ml 535 ml Balance -315 ml -215 ml 1265 ml Physical Exam General: Other (Intubated sedated) Heart: Regular rate Lungs: Clear Abdomen: Normal bowel sounds Extremities: No clubbing, No cyanosis, No edema, Normal pulses, No t enderness/swelling Skin: Other (Extensive bruising to anterior chest wall) Labs Labs: Laboratory Tests Test 10/03/21 04:25 White Blood Count 6.6 x10^3/uL (4.0-11.0) Red Blood Count 2.71 x10^6/uL (4.30-5.70) Hemoglobin 8.8 g/dL (13.0-17.5) Hematocrit 26.2 % (39.0-53.0) Mean Corpuscular Volume 96 fL (79-100) Mean Corpuscular Hemoglobin 32 pg (25-35) Mean Corpuscular Hemoglobin Concent 34 g/dL (31-37) Red Cell Distribution Width 14.4 % (11.5-14.5) Platelet Count 161 x10^3/uL (140-400) Neutrophils (%) (Auto) 81 % (31-73) Lymphocytes (%) (Auto) 10 % (24-48) Monocytes (%) (Auto) 4 % (0-9) Eosinophils (%) (Auto) 4 % (0-3) Basophils (%) (Auto) 1 % (0-3) Neutrophils # (Auto) 5.4 x10^3/uL (1.8-7.7) Lymphocytes # (Auto) 0.7 x10^3/uL (1.0-4.8) Monocytes # (Auto) 0.2 x10^3/uL (0.0-1.1) Eosinophils # (Auto) 0.3 x10^3/uL (0.0-0.7) Basophils # (Auto) 0.0 x10^3/uL (0.0-0.2) Sodium Level 154 mmol/L (136-145) Potassium Level 3.5 mmol/L (3.5-5.1) Chloride Level 119 mmol/L (98-107) Carbon Dioxide Level 27 mmol/L (21-32) Anion Gap 8 (6-14) Blood Urea Nitrogen 33 mg/dL (8-26) Creatinine 0.9 mg/dL (0.7-1.3) Estimated GFR (Cockcroft-Gault) 80.0 Glucose Level 148 mg/dL (70-99) Calcium Level 8.1 mg/dL (8.5-10.1) Comment Review of Relevant I have reviewed the following items ivania (where applicable) has been applied. Justifications for Admission Chest Pain Indications Respiratory Distress?: Yes Justification for admission: Patient's respiratory distress as indicated by (SOB/tachypnea/abnormal breathing pattern plus hypoxemia/AMS/other evidence of respiratory compromise such as pulmonary edema on chest x-ray) will need inpatient level of care. Serious Diagnosis?: Yes Justification for admission: Chest pain may be indicative of potentially serious diagnosis/diagnoses Please state condition(s) which will require inpatient level of care for further evaluation and management. Other Justification TERESA GARZA MD Oct 03, 2021 20:11
[2021-10-04] VITALS (24 sets, daily range): BP systolic 114–163; BP diastolic 51–69
[2021-10-04] MEDS: AMPICILLIN/SULBACTAM 3 GM in IV NORMAL SALINE 100ML 100 ML IV SCH ×3 (05:37→18:19)
--- NOTE | 2021-10-04 05:48 | PDOC ---
PULMONARY PROGRESS NOTES DATE: 10/04/21 TIME: 05:46 Subjective on vent peep 5 fio2 35% off sedation since 09/26 no response Vitals Vital Signs Date Time Temp Pulse Resp B/P (MAP) Pulse Ox O2 Delivery O2 Flow Rate FiO2 10/04/21 05:00 70 14 135/59 (84) 100 Ventilator 10/04/21 04:00 97.6 97.6 Comments ros unable to obtain on vent not following commands HEENT: Other (nc at orally intubated nose clear neck no lad no thyromegaly) Lungs: Clear Cardiovascular: S1, S2 Abdomen: Soft Neuro Exam: Alert Extremities: Other (Some edema) Skin: Warm Labs Laboratory Tests Test 10/03/21 04:25 White Blood Count 6.6 x10^3/uL (4.0-11.0) Red Blood Count 2.71 x10^6/uL (4.30-5.70) Hemoglobin 8.8 g/dL (13.0-17.5) Hematocrit 26.2 % (39.0-53.0) Mean Corpuscular Volume 96 fL (79-100) Mean Corpuscular Hemoglobin 32 pg (25-35) Mean Corpuscular Hemoglobin Concent 34 g/dL (31-37) Red Cell Distribution Width 14.4 % (11.5-14.5) Platelet Count 161 x10^3/uL (140-400) Neutrophils (%) (Auto) 81 % (31-73) Lymphocytes (%) (Auto) 10 % (24-48) Monocytes (%) (Auto) 4 % (0-9) Eosinophils (%) (Auto) 4 % (0-3) Basophils (%) (Auto) 1 % (0-3) Neutrophils # (Auto) 5.4 x10^3/uL (1.8-7.7) Lymphocytes # (Auto) 0.7 x10^3/uL (1.0-4.8) Monocytes # (Auto) 0.2 x10^3/uL (0.0-1.1) Eosinophils # (Auto) 0.3 x10^3/uL (0.0-0.7) Basophils # (Auto) 0.0 x10^3/uL (0.0-0.2) Sodium Level 154 mmol/L (136-145) Potassium Level 3.5 mmol/L (3.5-5.1) Chloride Level 119 mmol/L (98-107) Carbon Dioxide Level 27 mmol/L (21-32) Anion Gap 8 (6-14) Blood Urea Nitrogen 33 mg/dL (8-26) Creatinine 0.9 mg/dL (0.7-1.3) Estimated GFR (Cockcroft-Gault) 80.0 Glucose Level 148 mg/dL (70-99) Calcium Level 8.1 mg/dL (8.5-10.1) Medications Active Scripts Medications Dose Route/Sig Max Daily Dose Days Date Category Dose Instructions Urea 227 Gm Cream..g. 1 Tata TP DAILY 30 09/23/21 Reported Crestor (Rosuvastatin Calcium) 40 Mg Tablet 1 Tab PO DAILY 09/23/21 Reported Namenda (Memantine Hcl) 10 Mg Tablet 1 Tab PO BID 09/23/21 Reported Pantoprazole Sodium (Pantoprazole Sodium) 40 Mg Tablet.dr 40 Mg PO DAILYAC 09/23/21 Reported Lisinopril 40 Mg Tablet 0.5 Tab PO DAILY 09/23/21 Reported Levothyroxine Sodium 50 Mcg Tablet 1 Tab PO DAILY 09/23/21 Reported Xolegel (Ketoconazole) 45 Gm Gel..gram. 1 Tata TP BID 30 09/23/21 Reported Isosorbide Mononitrate Er (Isosorbide Mononitrate) 60 Mg Tab.er.24h 1 Tab PO DAILY 09/23/21 Reported Hydrophor Ointment (Mineral Oil/Hydrophil Petrolat) 454 Gm Oint...g. 454 Gm TP PRN PRN 09/23/21 Reported Zetia (Ezetimibe) 10 Mg Tablet 1 Tab PO DAILY 30 09/23/21 Reported Donepezil Hcl 10 Mg Tablet 1 Tab PO DAILY 09/23/21 Reported Clopidogrel (Clopidogrel Bisulfate) 75 Mg Tablet 75 Mg PO DAILY 09/23/21 Reported Celexa (Citalopram Hydrobromide) 40 Mg Tablet 1 Tab PO DAILY 09/23/21 Reported Vitamin D3 (Vitamin D) 25 Mcg Tablet 25 Mcg PO DAILY 09/23/21 Reported 1,000 UNITS = 25 MCG Thera Tears (Carboxymethylcellulose Sodium) 15 Ml Drops 1 Drop EACHEYE QID 09/23/21 Reported Atenolol 25 Mg Tablet 1 Tab PO DAILY 09/23/21 Reported Amlodipine Besylate 5 Mg Tablet 5 Mg PO DAILY 09/23/21 Reported Comments cxr reviewed Stable diffuse interstitial infiltrate with suspected trace left pleural effusion. ett ok Impression . IMPRESSION: 1. Acute hypoxemic respiratory failure secondary to complete heart block. 2. 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 3. Acute kidney injury. 4. Elevated liver chemistries. 5. Non-ST segment elevation myocardial infarction. 6. Severe protein malnutrition, present upon admission. 7. Respiratory alkalosis. Minute ventilation adjust 8. Patient does assist ventilator, brainstem function intact 9. Possible seizures 10. Anoxic brain injury Plan . Updated 10/04 cont vent support setting reviewed, sbt when awake elevate hob Continue current support abx pepcid scds for prophylaxis Patient and family wishes to wait a couple more days before final decision Updated 10/03 Continue current support Patient and family wishes to wait a couple more days before final decision 10/02 nasal 9 discussed with offbearer meeting later today with Dr. Flood I would recommend discontinuing support allow natural OLIVE CAMPBELL MD Oct 04, 2021 05:48
[2021-10-04 08:23] LABS: BASE EXCESS ABG 0 mmol/L (-3-3); HCO3 ABG 23 mmol/L (21-28); PCO2 ABG 31 mmHg (35-46); PO2 ABG 94 mmHg (65-108); SAT O2 ABG 97 % (92-99)
[2021-10-04 08:32] LABS: FIO2 ABG 35% AC12/500/5
[2021-10-04] MEDS: FAMOTIDINE 20 MG/2 ML VIAL IVP SCH ×2 (09:19→20:49)
[2021-10-04] MEDS: levETIRAcetam 500 MG in IV DEXTROSE 5% 100ML 100 ML IV SCH ×2 (09:20→20:49)
--- NOTE | 2021-10-04 12:24 | PDOC ---
PROGRESS NOTES Date of Service: DATE: 10/04/21 TIME: 12:24 Subjective Subjective Remains intubated Objective Objective Vital Signs Date Time Temp Pulse Resp B/P (MAP) Pulse Ox O2 Delivery O2 Flow Rate FiO2 10/04/21 12:06 100 Ventilator 10/04/21 12:00 98.5 70 13 146/62 (90) 98.5 Intake and Output 10/04/21 06:59 Intake Total 1924 ml Output Total 1315 ml Balance 609 ml Intake IV Total 637 ml Tube Feeding 1087 ml Other 200 ml Output Urine Total 1315 ml Physical Exam Abdomen: Normal bowel sounds Heart: Regular rate Extremities: No clubbing, No cyanosis, No edema, Normal pulses, No tenderness/swelling General: Other (Intubated sedated) HEENT: Mucous membr. moist/pink, Other (ETT and OGT in place, pupils pinpoint, occipital scalp bruising) Lungs: Other (Mildly decreased breath sounds) Neuro: Other (Pupils 2 mm bilaterally and pinpoint with no reaction to light, GCS 3) Psych/Mental Status: Other (Unresponsive) Skin: Other (Extensive bruising to anterior chest wall) Assessment Assessment 1. Cardiac arrest due to pacemaker battery depletion 2. SSS s/p PPM. s/p generator change AV pacing 3. NSTEMI - type 2. 4. Cardiomyopathy; echo with LVEF 45% 5. EDWIN: much improved 6. Cardiogenic shock: BP better 7. Acute respiratory failure due to #1 8. Probable aspiration PNA; febrile 9. Elevated LFTs, shock liver; improving 10. Anoxic Encephalopathy;only responsive to tactile stimuli 11. Thrombocytopenia; PLT up to 105 Recommendations Continue vent management per pulmonary team Ongoing antibiotic therapy for probable aspiration Poor prognosis, supportive care. Comment Review of Relevant I have reviewed the following items ivania (where applicable) has been applied. Labs Laboratory Tests Test 10/04/21 08:20 O2 Saturation 97 % (92-99) Arterial Blood pH 7.50 (7.35-7.45) Arterial Blood pCO2 at Patient Temp 31 mmHg (35-46) Arterial Blood pO2 at Patient Temp 94 mmHg (65-108) Arterial Blood HCO3 23 mmol/L (21-28) Arterial Blood Base Excess 0 mmol/L (-3-3) FiO2 35% ac12/500/5 Medications Current Medications Famotidine (Pepcid Vial) 20 mg BID IVP Last administered on 10/04/21at 09:19; Start 10/03/21 at 21:00 Vitals/I & O Vital Sign - Last 24 Hours 10/03/21 10/03/21 10/03/21 10/03/21 13:00 13:22 14:00 15:00 Pulse 70 70 70 Resp 12 12 12 B/P (MAP) 139/58 (85) 139/62 (87) 157/65 (95) Pulse Ox 100 100 100 100 O2 Delivery Ventilator Ventilator Ventilator Ventilator 10/03/21 10/03/21 10/03/21 10/03/21 15:51 16:00 16:00 17:00 Temp 98.7 98.7 Pulse 70 70 Resp 12 14 B/P (MAP) 157/58 (91) 125/50 (75) Pulse Ox 100 100 100 O2 Delivery Ventilator Ventilator Mechanical Ventilator Ventilator 10/03/21 10/03/21 10/03/21 10/03/21 18:00 18:10 19:00 20:00 Temp 98.3 98.3 Pulse 70 68 Resp 16 14 B/P (MAP) 146/58 (87) 147/55 (85) Pulse Ox 100 99 100 99 O2 Delivery Ventilator Ventilator Ventilator Ventilator 10/03/21 10/03/21 10/03/21 10/03/21 20:00 20:00 21:00 22:00 Pulse 68 68 Resp 14 14 B/P (MAP) 147/59 (88) 151/64 (93) Pulse Ox 100 100 99 O2 Delivery Ventilator Mechanical Ventilator Ventilator Ventilator 10/03/21 10/03/21 10/03/21 10/04/21 22:00 23:00 23:35 00:00 Temp 98.4 98.4 Pulse 69 70 68 Resp 14 12 14 B/P (MAP) 146/65 (92) 165/66 (99) 145/62 (89) Pulse Ox 100 100 100 O2 Delivery Ventilator Ventilator Mechanical Ventilator Ventilator 10/04/21 10/04/21 10/04/21 10/04/21 00:00 01:00 02:00 02:33 Pulse 68 68 Resp 14 14 B/P (MAP) 158/66 (96) 156/68 (97) Pulse Ox 99 100 100 99 O2 Delivery Ventilator Ventilator Ventilator Ventilator 10/04/21 10/04/21 10/04/21 10/04/21 03:00 04:00 04:00 04:30 Temp 97.6 97.6 Pulse 69 69 Resp 14 14 B/P (MAP) 138/59 (85) 163/66 (98) Pulse Ox 100 100 99 O2 Delivery Ventilator Ventilator Mechanical Ventilator Ventilator 10/04/21 10/04/21 10/04/21 10/04/21 05:00 06:00 07:00 07:44 Pulse 70 69 68 Resp 14 14 14 B/P (MAP) 135/59 (84) 149/62 (91) 153/65 (94) Pulse Ox 100 100 100 100 O2 Delivery Ventilator Ventilator Ventilator Ventilator 10/04/21 10/04/21 10/04/21 10/04/21 08:00 08:00 09:00 09:13 Temp 98.1 98.1 Pulse 68 69 Resp 14 16 B/P (MAP) 139/65 (89) 144/55 (84) Pulse Ox 100 100 100 O2 Delivery Mechanical Ventilator Ventilator Ventilator Ventilator 10/04/21 10/04/21 10/04/21 10/04/21 10:00 11:00 12:00 12:06 Temp 98.5 98.5 Pulse 70 71 70 Resp 16 16 13 B/P (MAP) 114/51 (72) 151/69 (96) 146/62 (90) Pulse Ox 100 100 100 100 O2 Delivery Ventilator Ventilator Ventilator Ventilator Intake and Output 10/03/21 10/03/21 10/04/21 14:59 22:59 06:59 Intake Total 405 ml 532 ml 987 ml Output Total 500 ml 430 ml 385 ml Balance -95 ml 102 ml 602 ml Respiratory Distress?: Yes Justification for admission: Patient's respiratory distress as indicated by (SOB/tachypnea/abnormal breathing pattern plus hypoxemia/AMS/other evidence of respiratory compromise such as pulmonary edema on chest x-ray) will need inpatient level of care. Serious Diagnosis?: Yes Justification for admission: Chest pain may be indicative of potentially serious diagnosis/diagnoses Please state condition(s) which will require inpatient level of care for further evaluation and management. MICHI DIXON MD Oct 04, 2021 12:24
[2021-10-05] VITALS (24 sets, daily range): BP systolic 111–159; BP diastolic 51–77
[2021-10-05] MEDS: AMPICILLIN/SULBACTAM 3 GM in IV NORMAL SALINE 100ML 100 ML IV SCH ×5 (05:57→23:52)
--- NOTE | 2021-10-05 06:00 | PDOC ---
PULMONARY PROGRESS NOTES DATE: 10/05/21 TIME: 05:59 Subjective on vent peep 5 fio2 35% off sedation since 09/26 no response mod ett secretion Vitals Vital Signs Date Time Temp Pulse Resp B/P (MAP) Pulse Ox O2 Delivery O2 Flow Rate FiO2 10/05/21 05:00 70 14 141/62 (88) 100 Ventilator 10/05/21 04:00 98.4 98.4 Comments ros unable to obtain on vent not following commands HEENT: Other (nc at orally intubated nose clear neck no lad no thyromegaly) Lungs: Clear Cardiovascular: S1, S2 Abdomen: Soft Neuro Exam: Alert Extremities: Other (Some edema) Skin: Warm Labs Laboratory Tests Test 10/04/21 08:20 O2 Saturation 97 % (92-99) Arterial Blood pH 7.50 (7.35-7.45) Arterial Blood pCO2 at Patient Temp 31 mmHg (35-46) Arterial Blood pO2 at Patient Temp 94 mmHg (65-108) Arterial Blood HCO3 23 mmol/L (21-28) Arterial Blood Base Excess 0 mmol/L (-3-3) FiO2 35% ac12/500/5 Laboratory Tests Test 10/04/21 08:20 O2 Saturation 97 % (92-99) Arterial Blood pH 7.50 (7.35-7.45) Arterial Blood pCO2 at Patient Temp 31 mmHg (35-46) Arterial Blood pO2 at Patient Temp 94 mmHg (65-108) Arterial Blood HCO3 23 mmol/L (21-28) Arterial Blood Base Excess 0 mmol/L (-3-3) FiO2 35% ac12/500/5 Medications Active Scripts Medications Dose Route/Sig Max Daily Dose Days Date Category Dose Instructions Urea 227 Gm Cream..g. 1 Tata TP DAILY 30 09/23/21 Reported Crestor (Rosuvastatin Calcium) 40 Mg Tablet 1 Tab PO DAILY 09/23/21 Reported Namenda (Memantine Hcl) 10 Mg Tablet 1 Tab PO BID 09/23/21 Reported Pantoprazole Sodium (Pantoprazole Sodium) 40 Mg Tablet.dr 40 Mg PO DAILYAC 09/23/21 Reported Lisinopril 40 Mg Tablet 0.5 Tab PO DAILY 09/23/21 Reported Levothyroxine Sodium 50 Mcg Tablet 1 Tab PO DAILY 09/23/21 Reported Xolegel (Ketoconazole) 45 Gm Gel..gram. 1 Tata TP BID 30 09/23/21 Reported Isosorbide Mononitrate Er (Isosorbide Mononitrate) 60 Mg Tab.er.24h 1 Tab PO DAILY 09/23/21 Reported Hydrophor Ointment (Mineral Oil/Hydrophil Petrolat) 454 Gm Oint...g. 454 Gm TP PRN PRN 09/23/21 Reported Zetia (Ezetimibe) 10 Mg Tablet 1 Tab PO DAILY 30 09/23/21 Reported Donepezil Hcl 10 Mg Tablet 1 Tab PO DAILY 09/23/21 Reported Clopidogrel (Clopidogrel Bisulfate) 75 Mg Tablet 75 Mg PO DAILY 09/23/21 Reported Celexa (Citalopram Hydrobromide) 40 Mg Tablet 1 Tab PO DAILY 09/23/21 Reported Vitamin D3 (Vitamin D) 25 Mcg Tablet 25 Mcg PO DAILY 09/23/21 Reported 1,000 UNITS = 25 MCG Thera Tears (Carboxymethylcellulose Sodium) 15 Ml Drops 1 Drop EACHEYE QID 09/23/21 Reported Atenolol 25 Mg Tablet 1 Tab PO DAILY 09/23/21 Reported Amlodipine Besylate 5 Mg Tablet 5 Mg PO DAILY 09/23/21 Reported Comments cxr reviewed Stable diffuse interstitial infiltrate with suspected trace left pleural effusion. ett ok Impression . IMPRESSION: 1. Acute hypoxemic respiratory failure secondary to complete heart block. 2. 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 3. Acute kidney injury. 4. Elevated liver chemistries. 5. Non-ST segment elevation myocardial infarction. 6. Severe protein malnutrition, present upon admission. 7. Respiratory alkalosis. Minute ventilation adjust 8. Patient does assist ventilator, brainstem function intact 9. Possible seizures 10. Anoxic brain injury Plan . Updated 10/05 cont vent support setting reviewed, sbt when awake off sedation since 09/26 elevate hob Continue current support abx pepcid scds for prophylaxis discussed w rn Updated 10/04 cont vent support setting reviewed, sbt when awake elevate hob Continue current support abx pepcid scds for prophylaxis Patient and family wishes to wait a couple more days before final decision Updated 10/03 Continue current support Patient and family wishes to wait a couple more days before final decision 10/02 nasal 9 discussed with insurance representative meeting later today with Dr. Flood I would recommend discontinuing support allow natural OLIVE CAMPBELL MD Oct 05, 2021 06:00
--- NOTE | 2021-10-05 09:14 | PDOC ---
[employer] PROGRESS NOTE Date of Service DOS: DATE: 10/05/21 TIME: 09:13 Chief Complaint Chief Complaint Acute hypoxic respiratory failure - likely due to aspiration pneumonia from vomiting likely from symptomatic 3rd degree heart block. Will cont vent, wean O2 as tolerated. Unasyn for aspiration pneumonia coverage. Consult pulmonology for vent management assistance PEA arrest - likely from above aspiration event, complicated by 3rd degree heart block. ROSC obtained Third degree heart block - s/p PPM generator change with apparent recovery of heart rate. Cont dopamine. ICU admission Abnormal chest CT - likely due to due to pneumonia Nausea and vomiting - likely from CHB, will treat for pneumonia, will rule out other infectious etiology. IV antiemetics Fall - second fall in a week. If neurologic recovery occurs needs gait testing, though likely this was related to cardiac event Closed head injury - posterior scalp abrasion, local wound care. Monitor neurologic function. Anemia - will check iron studies, likely of chronic disease Thrombocytopenia - unclear etiology, will trend EDWIN - likely vasomotor nephropathy from arrest. Family does not know of any history of CKD, will order [facility] records Lactic acidosis - likely due to hypoxia, will trend Transaminitis - likely related to shock liver, will monitor Elevated troponin - demand ischemia from 3rd degree heart block, likely, will trend out. HTN - will add back home meds as BP allows HLD - statin when taking PO Patient family arrived next 24 hours to discuss ongoing plan History of Present Illness History of Present Illness Mr Cerda is an 86-year-old male with PMHx HTN, HLD s/p PPM who presented to [facility] in [place] via EMS after a PEA cardiac arrest. Per his son, he was at home and in the presence of son and son-in-law when he was observed actively choking and subsequently falling on the floor with significant amount of emesis that was nonbloody and nonbilious in nature. Son reports vomit with recently ingested food and laying his father on his side and cleaning out his mouth while son-in-law called EMS. On EMS arrival ~3 minutes later, patient was unresponsive and cyanotic and they intubated. En-route patient was found to be pulseless in PEA and appropriate ACLS measures were followed with application of Howard device for chest compressions, and per report had a total of x2 epinephrine administered via left tibial IO. After approximately 5 minutes ROSC was obtained. In ED was noted unresponsive with pinpoint pupils and GCS 3 with no purposeful movements. Per EMS report and son the patient takes Plavix, lisinopril, rosuvastatin and citalopram at home. He has a pacemaker per son, which was placed in [place] over 10 years ago, and the son says he follows at [facility], doesn't know about pacer follow up. Per son he fell 4 days prior and [facility] noted [facility] his [facility]iput. Family notes he has been more weak than usual over past 72 hours, no travel or sick contacts. Is fully vaccinated against COVID 19. EKG appeared with third-degree heart block at 42 bpm, left axis deviation, T wave inversion noted in lead I, III, V2-6, no STEMI Vitals obtained concerning for marked bradycardia and no respiratory effort Labs with WBC 9.1, Hb 11.4, platelets 128, ABG 7.2 7/42/459 on 100% FiO2, rapid COVID-19 negative, NA 137, K4.2, BUN 50, CR 2, glucose 247, lactic acid 8.6, calcium 8.6, bilirubin 0.6, AST 131, ALT 157, alkaline phosphatase 90, ammonia 25, albumin 3, troponin 0.134, INR 1.1, urinalysis bland. CT head and neck with no acute abnormalities. CT chest with bibasilar infiltrates and NGT and ETT in good positioning. conveyor monitor concerning for third-degree heart block, with rate in the 20s, therefore 1 mg epinephrine administered with minimal improvement in HR, then 1 mg atropine without significant improvement, then dopamine gtt without sustained improvement. 3 L IV fluid administered and unasyn for aspiration pneumonitis. Ultimately was responsive to transcutaneous pacing and after discussion with cardiology he was transferred to [facility] for further care. 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 Seen in ICU. Discussed with son bedside. 09/23: Afebrile, on vent with FiO2 50%, PEEP 5. Continue dopamine gtt. We will continue Unasyn for aspiration pneumonia. Chest x-ray showed suspected partially consolidated left lower lobe infiltrate superimposed on right lower and bilateral upper lobe multifocal interstitial infiltrate.. Critical care time 30 minutes spent reviewing charts, general labs, reviewing imaging, and discussion with RN. 09/24: Afebrile. On vent with FiO2 40%, PEEP 5. Remains on pressor support. Off dopamine. Will continue Unasyn for pneumonia. Continue supportive care, continue to wean off vent. Critical care time 30 minutes spent reviewing charts, general labs, reviewing imaging, discussion with Dr. Mcdaniel, and discussion with RN. 09/25: Low-grade fever overnight, T-max 100.6 F. On vent with FiO2 35%, PEEP 5. Chest x-ray yesterday showed diffuse increased interstitial opacity likely due to interstitial infiltrate. Continue IV antibiotics. He has been off sedation for the past 24 hours. Platelets have steadily dropped; platelets 89 today. I discussion with daughter and son-in-law by phone about concerns for worsening bruising and, cytopenia. They are agreeable to no chest compressions, as to not cause any further damage that may lead to prolonged intubation. We will continue to wean off ventilator. 30 minutes critical care time spent reviewing charts, reviewing labs, reviewing imaging, discussion with RN, and discussion with Dr. Ortiz. 09/26: Afebrile. On vent with FiO2 35%, PEEP 5. Chest x-ray today showing stable diffuse interstitial infiltrate. Platelets [address] Brand was consulted yesterday; he is discussed with family the likely poor prognosis. Sister wants to fly in from [place] to see him. Family would like DNR but chemical code; son-in-law will discuss with the rest of family. Critical care time 30 minutes spent reviewing chart, reviewing labs, reviewing imaging, discussing with Dr. Ortiz. 09/27: Afebrile; on vent with FiO2 50%, PEEP 5. Off. For 72 hours. Some spont aneous movements noted this morning. I believe family is flying in from [place] to see him prior to making full DNR; chemical code. Critical care time 30 minutes spent reviewing charts, general labs, reviewing imaging, and discussion with RN. 09/28: Febrile overnight, T-max 102.0 F. 09/29 Patient evaluated examined at bedside. Remains off sedation. But still pretty unresponsive. Absent brainstem reflexes. Will attempt to contact family today to see if they are in fact coming in from [place]. Still on Levophed and dopamine. . Critical care time 30 minutes spent reviewing charts, reviewing labs, imaging, discussion with RN. 09/30 Patient evaluated and examined at bedside. Still off sedation and unresponsive. Still on Levophed for blood pressure support. Family supposed to arrive today for discussion of ongoing care. Critical care time 30 minutes spent reviewing charts, reviewing labs, imaging, discussion with RN. 10/01 Patient evaluated and examined at bedside. Still intubated and unresponsive. R equiring pressors. Talk to patient's son on phone today for 15 minutes discussing advanced care planning. He reported that she has not been able to discuss ongoing care with his sister as she works in the afternoons and he works in the evenings. Provided clinical updates to him told him about no real improvement at this point. Still remains on high ventilator settings. Planning to meet with him tomorrow afternoon at bedside for further discussion.Critical care time 30 minutes spent reviewing charts, reviewing labs, imaging, discussion with RN 10/02 Patient evaluated examined at bedside. Still intubated minimally responsive emma n without sedation. Waiting for son to arrive at bedside for care discussion. Otherwise continuing current plans. I spent 35 minutes critical care time reviewing charts labs imaging and discussion with subspecialist and nursing team. 10/03 Patient evaluated examined at bedside. I discussed with the family yesterday for approximately 35 minutes ongoing care plans. During that time patient did have some extremity movement along with some head movement showing discomfort from the ventilator. With this family would like to continue care for now. I spoke with them again at bedside today and that they would like to continue on until at least tomorrow evening. Still think very poor prognosis. However will honor family wishes. Plan of care discussed with bedside RN. I spent 35 minutes critical care time reviewing charts labs imaging and discussion with specialists and nursing team 10/04 Late entry for October 04. Patient evaluated at bedside. Still with some movements in his extremities. Still intubated minimally responsive despite being off sedation for over a week. Continue discussion of goals with family. 35 minutes critical care time. Vitals/I&O Vitals/I&O: Vital Signs Date Time Temp Pulse Resp B/P (MAP) Pulse Ox O2 Delivery O2 Flow Rate FiO2 10/05/21 09:06 100 Ventilator 10/05/21 06:00 70 14 145/63 (90) 10/05/21 04:00 98.4 98.4 I & O 10/04/21 10/04/21 10/05/21 15:00 23:00 07:00 Intake Total 200 ml 864 ml 1293 ml Output Total 480 ml 500 ml 350 ml Balance -280 ml 364 ml 943 ml Physical Exam General: Other (Intubated sedated) Heart: Regular rate Lungs: Clear Abdomen: Normal bowel sounds Extremities: No clubbing, No cyanosis, No edema, Normal pulses, No tenderness/swelling Skin: Other (Extensive bruising to anterior chest wall) Comment Review of Relevant I have reviewed the following items ivania (where applicable) has been applied. Justifications for Admission Chest Pain Indications Respiratory Distress?: Yes Justification for admission: Patient's respiratory distress as indicated by (SOB/tachypnea/abnormal breathing pattern plus hypoxemia/AMS/other evidence of respiratory compromise such as pulmonary edema on chest x-ray) will need inpatient level of care. Serious Diagnosis?: Yes Justification for admission: Chest pain may be indicative of potentially serious diagnosis/diagnoses Please state condition(s) which will require inpatient level of care for further evaluation and management. Other Justification TERESA GARZA MD Oct 05, 2021 09:13
[2021-10-05] MEDS: FAMOTIDINE 20 MG/2 ML VIAL IVP SCH ×2 (09:15→21:39)
[2021-10-05] MEDS: levETIRAcetam 500 MG in IV DEXTROSE 5% 100ML 100 ML IV SCH ×2 (09:16→21:35)
[2021-10-05 09:20] LABS: BASE EXCESS ABG 2 mmol/L (-3-3); HCO3 ABG 24 mmol/L (21-28); PCO2 ABG 31 mmHg (35-46); PO2 ABG 156 mmHg (65-108); SAT O2 ABG 99 % (92-99)
[2021-10-05 09:25] LABS: FIO2 ABG 35
--- NOTE | 2021-10-05 09:31 | PDOC ---
PROGRESS NOTES Date of Service: DATE: 10/05/21 TIME: 09:31 Subjective Subjective Remains intubated Objective Objective Vital Signs Date Time Temp Pulse Resp B/P (MAP) Pulse Ox O2 Delivery O2 Flow Rate FiO2 10/05/21 09:06 100 Ventilator 10/05/21 06:00 70 14 145/63 (90) 10/05/21 04:00 98.4 98.4 Intake and Output 10/05/21 06:59 Intake Total 2357 ml Output Total 1330 ml Balance 1027 ml Intake IV Total 610 ml Tube Feeding 1547 ml Other 200 ml Output Urine Total 1330 ml Gastric Drainage Total 0 ml Physical Exam Abdomen: Normal bowel sounds Heart: Regular rate Extremities: No clubbing, No cyanosis, No edema, Normal pulses, No tenderness/swelling General: Other (Intubated sedated) HEENT: Mucous membr. moist/pink, Other (ETT and OGT in place, pupils pinpoint, occipital scalp bruising) Lungs: Other (Mildly decreased breath sounds) Neuro: Other (Pupils 2 mm bilaterally and pinpoint with no reaction to light, GCS 3) Psych/Mental Status: Other (Unresponsive) Skin: Other (Extensive bruising to anterior chest wall) Assessment Assessment 1. Cardiac arrest due to pacemaker battery depletion 2. SSS s/p PPM. s/p generator change AV pacing 3. NSTEMI - type 2. 4. Cardiomyopathy; echo with LVEF 45% 5. EDWIN: much improved 6. Cardiogenic shock: BP better 7. Acute respiratory failure due to #1 8. Probable aspiration PNA; febrile 9. Elevated LFTs, shock liver; improving 10. Anoxic Encephalopathy;only responsive to tactile stimuli 11. Thrombocytopenia; PLT up to 105 Recommendations Continue vent management per pulmonary team Ongoing antibiotic therapy for probable aspiration Poor prognosis, supportive care. Comment Review of Relevant I have reviewed the following items ivania (where applicable) has been applied. Labs Laboratory Tests Test 10/05/21 09:15 O2 Saturation 99 % (92-99) Arterial Blood pH 7.52 (7.35-7.45) Arterial Blood pCO2 at Patient Temp 31 mmHg (35-46) Arterial Blood pO2 at Patient Temp 156 mmHg (65-108) Arterial Blood HCO3 24 mmol/L (21-28) Arterial Blood Base Excess 2 mmol/L (-3-3) FiO2 35 Vitals/I & O Vital Sign - Last 24 Hours 10/04/21 10/04/21 10/04/21 10/04/21 10:00 11:00 12:00 12:00 Temp 98.5 98.5 Pulse 70 71 70 Resp 16 16 13 B/P (MAP) 114/51 (72) 151/69 (96) 146/62 (90) Pulse Ox 100 100 100 O2 Delivery Ventilator Ventilator Ventilator Mechanical Ventilator 10/04/21 10/04/21 10/04/21 10/04/21 12:06 13:00 14:00 15:00 Pulse 70 70 70 Resp 12 12 12 B/P (MAP) 137/61 (86) 138/61 (86) 148/64 (92) Pulse Ox 100 100 100 100 O2 Delivery Ventilator Ventilator Ventilator Ventilator 10/04/21 10/04/21 10/04/21 10/04/21 16:00 16:00 16:10 17:00 Temp 98.6 98.6 Pulse 70 70 Resp 12 15 B/P (MAP) 145/64 (91) 147/67 (93) Pulse Ox 100 100 100 O2 Delivery Mechanical Ventilator Ventilator Ventilator Ventilator 10/04/21 10/04/21 10/04/21 10/04/21 17:14 18:00 19:00 19:15 Pulse 70 68 Resp 18 17 B/P (MAP) 134/59 (84) 135/59 (84) Pulse Ox 100 100 100 100 O2 Delivery Ventilator Ventilator Ventilator Ventilator 10/04/21 10/04/21 10/04/21 10/04/21 20:00 20:00 21:00 21:00 Temp 99.5 99.5 Pulse 68 69 Resp 15 12 B/P (MAP) 124/56 (78) 153/65 (94) Pulse Ox 100 100 100 O2 Delivery Ventilator Mechanical Ventilator Ventilator Ventilator 10/04/21 10/04/21 10/04/21 10/05/21 22:00 23:00 23:00 00:00 Temp 99.0 99.0 Pulse 68 70 70 Resp 12 12 14 B/P (MAP) 127/60 (82) 145/63 (90) 142/62 (88) Pulse Ox 100 100 100 100 O2 Delivery Ventilator Ventilator Ventilator Ventilator 10/05/21 10/05/21 10/05/21 10/05/21 00:00 01:00 01:17 02:00 Pulse 68 70 Resp 17 14 B/P (MAP) 131/62 (85) 143/56 (85) Pulse Ox 100 100 100 O2 Delivery Mechanical Ventilator Ventilator Ventilator Ventilator 10/05/21 10/05/21 10/05/21 10/05/21 03:00 03:00 04:00 04:00 Temp 98.4 98.4 Pulse 70 70 Resp 15 16 B/P (MAP) 126/52 (76) 138/77 (97) Pulse Ox 100 100 100 O2 Delivery Ventilator Ventilator Ventilator Mechanical Ventilator 10/05/21 10/05/21 10/05/21 10/05/21 05:00 05:00 06:00 09:06 Pulse 70 70 Resp 14 14 B/P (MAP) 141/62 (88) 145/63 (90) Pulse Ox 100 100 100 100 O2 Delivery Ventilator Ventilator Ventilator Ventilator Intake and Output 10/04/21 10/04/21 10/05/21 14:59 22:59 06:59 Intake Total 200 ml 864 ml 1293 ml Output Total 480 ml 500 ml 350 ml Balance -280 ml 364 ml 943 ml Respiratory Distress?: Yes Justification for admission: Patient's respiratory distress as indicated by (SOB/tachypnea/abnormal breathing pattern plus hypoxemia/AMS/other evidence of respiratory compromise such as pulmonary edema on chest x-ray) will need inpatient level of care. Serious Diagnosis?: Yes Justification for admission: Chest pain may be indicative of potentially serious diagnosis/diagnoses Please state condition(s) which will require inpatient level of care for further evaluation and management. MICHI DIXON MD Oct 05, 2021 09:31
--- NOTE | 2021-10-05 10:36 | PDOC ---
[employer] PROGRESS NOTE Date of Service DOS: DATE: 10/05/21 TIME: 10:35 Chief Complaint Chief Complaint Acute hypoxic respiratory failure - likely due to aspiration pneumonia from vomiting likely from symptomatic 3rd degree heart block. Will cont vent, wean O2 as tolerated. Unasyn for aspiration pneumonia coverage. Consult pulmonology for vent management assistance PEA arrest - likely from above aspiration event, complicated by 3rd degree heart block. ROSC obtained Third degree heart block - s/p PPM generator change with apparent recovery of heart rate. Cont dopamine. ICU admission Abnormal chest CT - likely due to due to pneumonia Nausea and vomiting - likely from CHB, will treat for pneumonia, will rule out other infectious etiology. IV antiemetics Fall - second fall in a week. If neurologic recovery occurs needs gait testing, though likely this was related to cardiac event Closed head injury - posterior scalp abrasion, local wound care. Monitor neurologic function. Anemia - will check iron studies, likely of chronic disease Thrombocytopenia - unclear etiology, will trend EDWIN - likely vasomotor nephropathy from arrest. Family does not know of any history of CKD, will order [facility] records Lactic acidosis - likely due to hypoxia, will trend Transaminitis - likely related to shock liver, will monitor Elevated troponin - demand ischemia from 3rd degree heart block, likely, will trend out. HTN - will add back home meds as BP allows HLD - statin when taking PO Patient family arrived next 24 hours to discuss ongoing plan History of Present Illness History of Present Illness Mr Cerda is an 86-year-old male with PMHx HTN, HLD s/p PPM who presented to [facility] in [place] via EMS after a PEA cardiac arrest. Per his son, he was at home and in the presence of son and son-in-law when he was observed actively choking and subsequently falling on the floor with significant amount of emesis that was nonbloody and nonbilious in nature. Son reports vomit with recently ingested food and laying his father on his side and cleaning out his mouth while son-in-law called EMS. On EMS arrival ~3 minutes later, patient was unresponsive and cyanotic and they intubated. En-route patient was found to be pulseless in PEA and appropriate ACLS measures were followed with application of Howard device for chest compressions, and per report had a total of x2 epinephrine administered via left tibial IO. After approximately 5 minutes ROSC was obtained. In ED was noted unresponsive with pinpoint pupils and GCS 3 with no purposeful movements. Per EMS report and son the patient takes Plavix, lisinopril, rosuvastatin and citalopram at home. He has a pacemaker per son, which was placed in [place] over 10 years ago, and the son says he follows at [facility], doesn't know about pacer follow up. Per son he fell 4 days prior and [facility]. Family notes he has been more weak than usual over past 72 hours, no travel or sick contacts. Is fully vaccinated against COVID 19. EKG appeared with third-degree heart block at 42 bpm, left axis deviation, T wave inversion noted in lead I, III, V2-6, no STEMI Vitals obtained concerning for marked bradycardia and no respiratory effort Labs with WBC 9.1, Hb 11.4, platelets 128, ABG 7.2 7/42/459 on 100% FiO2, rapid COVID-19 negative, NA 137, K4.2, BUN 50, CR 2, glucose 247, lactic acid 8.6, calcium 8.6, bilirubin 0.6, AST 131, ALT 157, alkaline phosphatase 90, ammonia 25, albumin 3, troponin 0.134, INR 1.1, urinalysis bland. CT head and neck with no acute abnormalities. CT chest with bibasilar infiltrates and NGT and ETT in good positioning. engineering intern concerning for third-degree heart block, with rate in the 20s, therefore 1 mg epinephrine administered with minimal improvement in HR, then 1 mg atropine without significant improvement, then dopamine gtt without sustained improvement. 3 L IV fluid administered and unasyn for aspiration pneumonitis. Ultimately was responsive to transcutaneous pacing and after discussion with cardiology he was transferred to [facility] for further care. To can labeler prior to my assessment, had pacemaker generator replaced emergently. Seen in ICU. Discussed with son bedside. 09/23: Afebrile, on vent with FiO2 50%, PEEP 5. Continue dopamine gtt. We will continue Unasyn for aspiration pneumonia. Chest x-ray showed suspected partially consolidated left lower lobe infiltrate superimposed on right lower and bilateral upper lobe multifocal interstitial infiltrate.. Critical care time 30 minutes spent reviewing charts, general labs, reviewing imaging, and discussion with RN. 09/24: Afebrile. On vent with FiO2 40%, PEEP 5. Remains on pressor support. Off dopamine. Will continue Unasyn for pneumonia. Continue supportive care, continue to wean off vent. Critical care time 30 minutes spent reviewing charts, general labs, reviewing imaging, discussion with Dr. Mcdaniel, and discussion with RN. 09/25: Low-grade fever overnight, T-max 100.6 F. On vent with FiO2 35%, PEEP 5. Chest x-ray yesterday showed diffuse increased interstitial opacity likely due to interstitial infiltrate. Continue IV antibiotics. He has been off sedation for the past 24 hours. Platelets have steadily dropped; platelets 89 today. I discussion with daughter and son-in-law by phone about concerns for worsening bruising and, cytopenia. They are agreeable to no chest compressions, as to not cause any further damage that may lead to prolonged intubation. We will continue to wean off ventilator. 30 minutes critical care time spent reviewing charts, reviewing labs, reviewing imaging, discussion with RN, and discussion with Dr. Ortiz. 09/26: Afebrile. On vent with FiO2 35%, PEEP 5. Chest x-ray today showing stable diffuse interstitial infiltrate. Platelets [address] Brand was consulted yesterday; he is discussed with family the likely poor prognosis. Sister wants to fly in from [place] to see him. Family would like DNR but chemical code; son-in-law will discuss with the rest of family. Critical care time 30 minutes spent reviewing chart, reviewing labs, reviewing imaging, discussing with Dr. Ortiz. 09/27: Afebrile; on vent with FiO2 50%, PEEP 5. Off. For 72 hours. Some spont aneous movements noted this morning. I believe family is flying in from [place] to see him prior to making full DNR; chemical code. Critical care time 30 minutes spent reviewing charts, general labs, reviewing imaging, and discussion with RN. 09/28: Febrile overnight, T-max 102.0 F. 09/29 Patient evaluated examined at bedside. Remains off sedation. But still pretty unresponsive. Absent brainstem reflexes. Will attempt to contact family today to see if they are in fact coming in from [place]. Still on Levophed and dopamine. . Critical care time 30 minutes spent reviewing charts, reviewing labs, imaging, discussion with RN. 09/30 Patient evaluated and examined at bedside. Still off sedation and unresponsive. Still on Levophed for blood pressure support. Family supposed to arrive today for discussion of ongoing care. Critical care time 30 minutes spent reviewing charts, reviewing labs, imaging, discussion with RN. 10/01 Patient evaluated and examined at bedside. Still intubated and unresponsive. R equiring pressors. Talk to patient's son on phone today for 15 minutes discussing advanced care planning. He reported that she has not been able to discuss ongoing care with his sister as she works in the afternoons and he works in the evenings. Provided clinical updates to him told him about no real improvement at this point. Still remains on high ventilator settings. Planning to meet with him tomorrow afternoon at bedside for further discussion.Critical care time 30 minutes spent reviewing charts, reviewing labs, imaging, discussion with RN 10/02 Patient evaluated examined at bedside. Still intubated minimally responsive emma n without sedation. Waiting for son to arrive at bedside for care discussion. Otherwise continuing current plans. I spent 35 minutes critical care time reviewing charts labs imaging and discussion with subspecialist and nursing team. 10/03 Patient evaluated examined at bedside. I discussed with the family yesterday for approximately 35 minutes ongoing care plans. During that time patient did have some extremity movement along with some head movement showing discomfort from the ventilator. With this family would like to continue care for now. I spoke with them again at bedside today and that they would like to continue on until at least tomorrow evening. Still think very poor prognosis. However will honor family wishes. Plan of care discussed with bedside RN. I spent 35 minutes critical care time reviewing charts labs imaging and discussion with specialists and nursing team 10/04 Late entry for October 04. Patient evaluated at bedside. Still with some movements in his extremities. Still intubated minimally responsive despite being off sedation for over a week. Continue discussion of goals with family. 35 minutes critical care time. 10/05 Patient evaluated examined at bedside. Hyponatremic this morning on review does appear his sodium has been creeping up. We will increase free water flushes. Family continues discussing goals of care. Here to provide them any information needed. 33 minutes critical care time Vitals/I&O Vitals/I&O: Vital Signs Date Time Temp Pulse Resp B/P (MAP) Pulse Ox O2 Delivery O2 Flow Rate FiO2 10/05/21 09:06 100 Ventilator 10/05/21 09:00 70 12 111/53 (72) 10/05/21 08:00 98.6 98.6 I & O 10/04/21 10/04/21 10/05/21 15:00 23:00 07:00 Intake Total 200 ml 864 ml 1293 ml Output Total 480 ml 500 ml 350 ml Balance -280 ml 364 ml 943 ml Physical Exam General: Other (Intubated sedated) Heart: Regular rate Lungs: Clear Abdomen: Normal bowel sounds Extremities: No clubbing, No cyanosis, No edema, Normal pulses, No tenderness/swelling Skin: Other (Extensive bruising to anterior chest wall) Labs Labs: Laboratory Tests Test 10/05/21 09:15 O2 Saturation 99 % (92-99) Arterial Blood pH 7.52 (7.35-7.45) Arterial Blood pCO2 at Patient Temp 31 mmHg (35-46) Arterial Blood pO2 at Patient Temp 156 mmHg (65-108) Arterial Blood HCO3 24 mmol/L (21-28) Arterial Blood Base Excess 2 mmol/L (-3-3) FiO2 35 Comment Review of Relevant I have reviewed the following items ivania (where applicable) has been applied. Justifications for Admission Chest Pain Indications Respiratory Distress?: Yes Justification for admission: Patient's respiratory distress as indicated by (SOB/tachypnea/abnormal breathing pattern plus hypoxemia/AMS/other evidence of respiratory compromise such as pulmonary edema on chest x-ray) will need inpatient level of care. Serious Diagnosis?: Yes Justification for admission: Chest pain may be indicative of potentially serious diagnosis/diagnoses Please state condition(s) which will require inpatient level of care for further evaluation and management. Other Justification TERESA GARZA MD Oct 05, 2021 10:36
[2021-10-06] VITALS (24 sets, daily range): BP systolic 105–158; BP diastolic 48–70
[2021-10-06 04:53] LABS: BASO % 1 % (0-3); EOS # 0.2 x10^3/uL (0.0-0.7); EOS % 4 % (0-3); HEMOGLOBIN 9.5 g/dL (13.0-17.5); LYMPH % 19 % (24-48); MEAN CORPUSCULAR HEMOGLOBIN 33 pg (25-35); MEAN CORPUSCULAR HGB CONC 34 g/dL (31-37); MEAN CORPUSCULAR VOLUME 96 fL (79-100); MONO # 0.2 x10^3/uL (0.0-1.1); MONO % 4 % (0-9); NEUT # 3.9 x10^3/uL (1.8-7.7); NEUT % 72 % (31-73); PLATELET COUNT 198 x10^3/uL (140-400); RED BLOOD COUNT 2.92 x10^6/uL (4.30-5.70); RED CELL DISTRIBUTION WIDTH 14.7 % (11.5-14.5); WHITE BLOOD COUNT 5.3 x10^3/uL (4.0-11.0)
[2021-10-06 05:25] LABS: CALCIUM 7.9 mg/dL (8.5-10.1); CREATININE 0.9 mg/dL (0.7-1.3); POTASSIUM 3.4 mmol/L (3.5-5.1)
[2021-10-06] MEDS: AMPICILLIN/SULBACTAM 3 GM in IV NORMAL SALINE 100ML 100 ML IV SCH (05:59)
--- NOTE | 2021-10-06 08:18 | PDOC ---
[employer] PROGRESS NOTE Date of Service DOS: DATE: 10/06/21 TIME: 07:58 Chief Complaint Chief Complaint Acute hypoxic respiratory failure - likely due to aspiration pneumonia from vomiting likely from symptomatic 3rd degree heart block. Will cont vent, wean O2 as tolerated. Unasyn for aspiration pneumonia coverage. Consult pulmonology for vent management assistance PEA arrest - likely from above aspiration event, complicated by 3rd degree heart block. ROSC obtained Third degree heart block - s/p PPM generator change with apparent recovery of heart rate. Cont dopamine. ICU admission Abnormal chest CT - likely due to due to pneumonia Nausea and vomiting - likely from CHB, will treat for pneumonia, will rule out other infectious etiology. IV antiemetics Fall - second fall in a week. If neurologic recovery occurs needs gait testing, though likely this was related to cardiac event Closed head injury - posterior scalp abrasion, local wound care. Monitor neurologic function. Anemia - will check iron studies, likely of chronic disease Thrombocytopenia - unclear etiology, will trend EDWIN - likely vasomotor nephropathy from arrest. Family does not know of any history of CKD, will order [facility] records Lactic acidosis - likely due to hypoxia, will trend Transaminitis - likely related to shock liver, will monitor Elevated troponin - demand ischemia from 3rd degree heart block, likely, will trend out. HTN - will add back home meds as BP allows HLD - statin when taking PO Patient family arrived next 24 hours to discuss ongoing plan History of Present Illness History of Present Illness Mr eCrda is an 86-year-old male with PMHx HTN, HLD s/p PPM who presented to [facility] in [place] via EMS after a PEA cardiac arrest. Per his son, he was at home and in the presence of son and son-in-law when he was observed actively choking and subsequently falling on the floor with significant amount of emesis that was nonbloody and nonbilious in nature. Son reports vomit with recently ingested food and laying his father on his side and cleaning out his mouth while son-in-law called EMS. On EMS arrival ~3 minutes later, patient was unresponsive and cyanotic and they intubated. En-route patient was found to be pulseless in PEA and appropriate ACLS measures were followed with application of Howard device for chest compressions, and per report had a total of x2 epinephrine administered via left tibial IO. After approximately 5 minutes ROSC was obtained. In ED was noted unresponsive with pinpoint pupils and GCS 3 with no purposeful movements. Per EMS report and son the patient takes Plavix, lisinopril, rosuvastatin and citalopram at home. He has a pacemaker per son, which was placed in [place] over 10 years ago, and the son says he follows at [facility], doesn't know about pacer follow up. Per son he fell 4 days prior and [facility] his [facility]ip[facility]. Family notes he has been more weak than usual over past 72 hours, no travel or sick contacts. Is fully vaccinated against COVID 19. EKG appeared with third-degree heart block at 42 bpm, left axis deviation, T wave inversion noted in lead I, III, V2-6, no STEMI Vitals obtained concerning for marked bradycardia and no respiratory effort Labs with WBC 9.1, Hb 11.4, platelets 128, ABG 7.2 7/42/459 on 100% FiO2, rapid COVID-19 negative, NA 137, K4.2, BUN 50, CR 2, glucose 247, lactic acid 8.6, calcium 8.6, bilirubin 0.6, AST 131, ALT 157, alkaline phosphatase 90, ammonia 25, albumin 3, troponin 0.134, INR 1.1, urinalysis bland. CT head and neck with no acute abnormalities. CT chest with bibasilar infiltrates and NGT and ETT in good positioning. chief payroll clerk concerning for third-degree heart block, with rate in the 20s, therefore 1 mg epinephrine administered with minimal improvement in HR, then 1 mg atropine without significant improvement, then dopamine gtt without sustained improvement. 3 L IV fluid administered and unasyn for aspiration pneumonitis. Ultimately was responsive to transcutaneous pacing and after discussion with cardiology he was transferred to [facility] for further care. To lab rn prior to my assessment, had pacemaker generator replaced emergently. Seen in ICU. Discussed with son bedside. 09/23: Afebrile, on vent with FiO2 50%, PEEP 5. Continue dopamine gtt. We will continue Unasyn for aspiration pneumonia. Chest x-ray showed suspected partially consolidated left lower lobe infiltrate superimposed on right lower and bilateral upper lobe multifocal interstitial infiltrate.. Critical care time 30 minutes spent reviewing charts, general labs, reviewing imaging, and discussion with RN. 09/24: Afebrile. On vent with FiO2 40%, PEEP 5. Remains on pressor support. Off dopamine. Will continue Unasyn for pneumonia. Continue to wean off vent. Critical care time 30 minutes spent reviewing charts, general labs, reviewing imaging, discussion with Dr. Mcdaniel. 09/25: Low-grade fever overnight, T-max 100.6 F. On vent with FiO2 35%, PEEP 5. Chest x-ray yesterday showed diffuse increased interstitial opacity likely due to interstitial infiltrate. Continue IV antibiotics. He has been off sedation for the past 24 hours. Platelets have steadily dropped; platelets 89 today. I discussion with daughter and son-in-law by phone about concerns for worsening bruising and, cytopenia. They are agreeable to no chest compressions, as to not cause any further damage that may lead to prolonged intubation. We will continue to wean off ventilator. 30 minutes critical care time spent reviewing charts, reviewing labs, reviewing imaging, discussion with RN, and discussion with Dr. Ortiz. 09/26: Afebrile. On vent with FiO2 35%, PEEP 5. Chest x-ray today showing stable diffuse interstitial infiltrate. Platelets [address] Brand was consulted yesterday; he is discussed with family the likely poor prognosis. Sister wants to fly in from [place] to see him. Family would like DNR but chemical code; son-in-law will discuss with the rest of family. Critical care time 30 minutes spent reviewing chart, reviewing labs, reviewing imaging, discussing with Dr. Ortiz. 09/27: Afebrile; on vent with FiO2 50%, PEEP 5. Off. For 72 hours. Some spontaneous movements noted this morning. I believe family is flying in from [place] to see him prior to making full DNR; chemical code. Critical care time 30 minutes spent reviewing charts, general labs, reviewing imaging, and discussion with RN. 09/28: Febrile overnight, T-max 102.0 F. 09/29: Patient evaluated examined at bedside. Remains off sedation. But still pretty unresponsive. Absent brainstem reflexes. Will attempt to contact family today to see if they are in fact coming in from [place]. Still on Levophed and dopamine. . Critical care time 30 minutes spent reviewing charts, reviewing labs, imaging, discussion with RN. 09/30: Patient evaluated and examined at bedside. Still off sedation and unresponsive. Still on Levophed for blood pressure support. Family supposed to arrive today for discussion of ongoing care. Critical care time 30 minutes spent reviewing charts, reviewing labs, imaging, discussion with RN. 10/01: Patient evaluated and examined at bedside. Still intubated and unresponsive. Requiring pressors. Talk to patient's son on phone today for 15 minutes discussing advanced care planning. He reported that she has not been able to discuss ongoing care with his sister as she works in the afternoons and he works in the evenings. Provided clinical updates to him told him about no real improvement at this point. Still remains on high ventilator settings. Planning to meet with him tomorrow afternoon at bedside for further discussion.Critical care time 30 minutes spent reviewing charts, reviewing labs, imaging, discussion with RN 10/02: Patient evaluated examined at bedside. Still intubated minimally responsive even without sedation. Waiting for son to arrive at bedside for care discussion. Otherwise continuing current plans. I spent 35 minutes critical care time reviewing charts labs imaging and discussion with subspecialist and nursing team. 10/03: Patient evaluated examined at bedside. I discussed with the family yesterday for approximately 35 minutes ongoing care plans. During that time patient did have some extremity movement along with some head movement showing discomfort from the ventilator. With this family would like to continue care for now. I spoke with them again at bedside today and that they would like to continue on until at least tomorrow evening. Still think very poor prognosis. However will honor family wishes. Plan of care discussed with bedside RN. I spent 35 minutes critical care time reviewing charts labs imaging and discussion with specialists and nursing team 10/04: Late entry for October 04. Patient evaluated at bedside. Still with some movements in his extremities. Still intubated minimally responsive despite being off sedation for over a week. Continue discussion of goals with family. 35 minutes critical care time. 10/05: Patient evaluated examined at bedside. Hyponatremic this morning on review does appear his sodium has been creeping up. We will increase free water flushes. Family continues discussing goals of care. Here to provide them any information needed. 33 minutes critical care time Overnight no events. NA 149, K3.4, Hb 9.5. No meaningful movement off sedation over a week. CC time 31 min Vitals/I&O Vitals/I&O: Vital Signs Date Time Temp Pulse Resp B/P (MAP) Pulse Ox O2 Delivery O2 Flow Rate FiO2 10/06/21 07:00 70 12 134/56 (82) 100 Ventilator 10/06/21 04:00 98.6 98.6 I & O 10/05/21 10/05/21 10/06/21 15:00 23:00 07:00 Intake Total 405 ml 1318 ml 1167 ml Output Total 425 ml 630 ml 405 ml Balance -20 ml 688 ml 762 ml Physical Exam General: Other (Intubated sedated) Heart: Regular rate Lungs: Clear Abdomen: Normal bowel sounds Extremities: No clubbing, No cyanosis, No edema, Normal pulses, No tenderness/swelling Skin: Other (Extensive bruising to anterior chest wall) Labs Labs: Laboratory Tests Test 10/05/21 09:15 10/06/21 04:10 O2 Saturation 99 % (92-99) Arterial Blood pH 7.52 (7.35-7.45) Arterial Blood pCO2 at Patient Temp 31 mmHg (35-46) Arterial Blood pO2 at Patient Temp 156 mmHg (65-108) Arterial Blood HCO3 24 mmol/L (21-28) Arterial Blood Base Excess 2 mmol/L (-3-3) FiO2 35 White Blood Count 5.3 x10^3/uL (4.0-11.0) Red Blood Count 2.92 x10^6/uL (4.30-5.70) Hemoglobin 9.5 g/dL (13.0-17.5) Hematocrit 28.0 % (39.0-53.0) Mean Corpuscular Volume 96 fL (79-100) Mean Corpuscular Hemoglobin 33 pg (25-35) Mean Corpuscular Hemoglobin Concent 34 g/dL (31-37) Red Cell Distribution Width 14.7 % (11.5-14.5) Platelet Count 198 x10^3/uL (140-400) Neutrophils (%) (Auto) 72 % (31-73) Lymphocytes (%) (Auto) 19 % (24-48) Monocytes (%) (Auto) 4 % (0-9) Eosinophils (%) (Auto) 4 % (0-3) Basophils (%) (Auto) 1 % (0-3) Neutrophils # (Auto) 3.9 x10^3/uL (1.8-7.7) Lymphocytes # (Auto) 1.0 x10^3/uL (1.0-4.8) Monocytes # (Auto) 0.2 x10^3/uL (0.0-1.1) Eosinophils # (Auto) 0.2 x10^3/uL (0.0-0.7) Basophils # (Auto) 0.0 x10^3/uL (0.0-0.2) Sodium Level 149 mmol/L (136-145) Potassium Level 3.4 mmol/L (3.5-5.1) Chloride Level 115 mmol/L (98-107) Carbon Dioxide Level 27 mmol/L (21-32) Anion Gap 7 (6-14) Blood Urea Nitrogen 28 mg/dL (8-26) Creatinine 0.9 mg/dL (0.7-1.3) Estimated GFR (Cockcroft-Gault) 80.0 Glucose Level 121 mg/dL (70-99) Calcium Level 7.9 mg/dL (8.5-10.1) Comment Review of Relevant I have reviewed the following items ivania (where applicable) has been applied. Justifications for Admission Chest Pain Indications Respiratory Distress?: Yes Justification for admission: Patient's respiratory distress as indicated by (SOB/tachypnea/abnormal breathing pattern plus hypoxemia/AMS/other evidence of respiratory compromise such as pulmonary edema on chest x-ray) will need inpatient level of care. Serious Diagnosis?: Yes Justification for admission: Chest pain may be indicative of potentially serious diagnosis/diagnoses Please state condition(s) which will require inpatient level of care for further evaluation and management. Other Justification TERESA CASTRO MD Oct 06, 2021 08:18
[2021-10-06] MEDS: FAMOTIDINE 20 MG/2 ML VIAL IVP SCH ×2 (08:28→20:58)
[2021-10-06] MEDS: levETIRAcetam 500 MG in IV DEXTROSE 5% 100ML 100 ML IV SCH ×2 (08:29→20:58)
[2021-10-06 08:34] LABS: BASE EXCESS ABG -2 mmol/L (-3-3); HCO3 ABG 21 mmol/L (21-28); PCO2 ABG 30 mmHg (35-46); PO2 ABG 147 mmHg (65-108); SAT O2 ABG 98 % (92-99)
[2021-10-06 08:36] LABS: FIO2 ABG 35
--- NOTE | 2021-10-06 08:52 | PDOC ---
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 CN: no focal findings. Muscle tone: normal. Muscle strength: Slight withdrawal to pain on the right DTR: 1+ Plantar reflex: Silent Gait: not examined. Sensory exam: Not cooperative. Cerebellar: Not cooperative Review of Relevant I have reviewed the following items ivania (where applicable) has been applied. Labs Laboratory Tests Test 10/05/21 09:15 10/06/21 04:10 10/06/21 08:00 O2 Saturation 99 % (92-99) 98 % (92-99) Arterial Blood pH 7.52 (7.35-7.45) 7.47 (7.35-7.45) Arterial Blood pCO2 at Patient Temp 31 mmHg (35-46) 30 mmHg (35-46) Arterial Blood pO2 at Patient Temp 156 mmHg (65-108) 147 mmHg (65-108) Arterial Blood HCO3 24 mmol/L (21-28) 21 mmol/L (21-28) Arterial Blood Base Excess 2 mmol/L (-3-3) -2 mmol/L (-3-3) FiO2 35 35 White Blood Count 5.3 x10^3/uL (4.0-11.0) Red Blood Count 2.92 x10^6/uL (4.30-5.70) Hemoglobin 9.5 g/dL (13.0-17.5) Hematocrit 28.0 % (39.0-53.0) Mean Corpuscular Volume 96 fL (79-100) Mean Corpuscular Hemoglobin 33 pg (25-35) Mean Corpuscular Hemoglobin Concent 34 g/dL (31-37) Red Cell Distribution Width 14.7 % (11.5-14.5) Platelet Count 198 x10^3/uL (140-400) Neutrophils (%) (Auto) 72 % (31-73) Lymphocytes (%) (Auto) 19 % (24-48) Monocytes (%) (Auto) 4 % (0-9) Eosinophils (%) (Auto) 4 % (0-3) Basophils (%) (Auto) 1 % (0-3) Neutrophils # (Auto) 3.9 x10^3/uL (1.8-7.7) Lymphocytes # (Auto) 1.0 x10^3/uL (1.0-4.8) Monocytes # (Auto) 0.2 x10^3/uL (0.0-1.1) Eosinophils # (Auto) 0.2 x10^3/uL (0.0-0.7) Basophils # (Auto) 0.0 x10^3/uL (0.0-0.2) Sodium Level 149 mmol/L (136-145) Potassium Level 3.4 mmol/L (3.5-5.1) Chloride Level 115 mmol/L (98-107) Carbon Dioxide Level 27 mmol/L (21-32) Anion Gap 7 (6-14) Blood Urea Nitrogen 28 mg/dL (8-26) Creatinine 0.9 mg/dL (0.7-1.3) Estimated GFR (Cockcroft-Gault) 80.0 Glucose Level 121 mg/dL (70-99) Calcium Level 7.9 mg/dL (8.5-10.1) Laboratory Tests Test 10/05/21 09:15 10/06/21 04:10 10/06/21 08:00 O2 Saturation 99 % (92-99) 98 % (92-99) Arterial Blood pH 7.52 (7.35-7.45) 7.47 (7.35-7.45) Arterial Blood pCO2 at Patient Temp 31 mmHg (35-46) 30 mmHg (35-46) Arterial Blood pO2 at Patient Temp 156 mmHg (65-108) 147 mmHg (65-108) Arterial Blood HCO3 24 mmol/L (21-28) 21 mmol/L (21-28) Arterial Blood Base Excess 2 mmol/L (-3-3) -2 mmol/L (-3-3) FiO2 35 35 White Blood Count 5.3 x10^3/uL (4.0-11.0) Red Blood Count 2.92 x10^6/uL (4.30-5.70) Hemoglobin 9.5 g/dL (13.0-17.5) Hematocrit 28.0 % (39.0-53.0) Mean Corpuscular Volume 96 fL (79-100) Mean Corpuscular Hemoglobin 33 pg (25-35) Mean Corpuscular Hemoglobin Concent 34 g/dL (31-37) Red Cell Distribution Width 14.7 % (11.5-14.5) Platelet Count 198 x10^3/uL (140-400) Neutrophils (%) (Auto) 72 % (31-73) Lymphocytes (%) (Auto) 19 % (24-48) Monocytes (%) (Auto) 4 % (0-9) Eosinophils (%) (Auto) 4 % (0-3) Basophils (%) (Auto) 1 % (0-3) Neutrophils # (Auto) 3.9 x10^3/uL (1.8-7.7) Lymphocytes # (Auto) 1.0 x10^3/uL (1.0-4.8) Monocytes # (Auto) 0.2 x10^3/uL (0.0-1.1) Eosinophils # (Auto) 0.2 x10^3/uL (0.0-0.7) Basophils # (Auto) 0.0 x10^3/uL (0.0-0.2) Sodium Level 149 mmol/L (136-145) Potassium Level 3.4 mmol/L (3.5-5.1) Chloride Level 115 mmol/L (98-107) Carbon Dioxide Level 27 mmol/L (21-32) Anion Gap 7 (6-14) Blood Urea Nitrogen 28 mg/dL (8-26) Creatinine 0.9 mg/dL (0.7-1.3) Estimated GFR (Cockcroft-Gault) 80.0 Glucose Level 121 mg/dL (70-99) Calcium Level 7.9 mg/dL (8.5-10.1) Medications Current Medications Fentanyl Citrate 30 ml @ 2.5 mls/hr CONT PRN IV SEE PROTOCOL Last administered on 09/24/21at 04:21; Start 09/22/21 at 18:00 Midazolam HCl 100 ml @ 1 mls/hr CONT PRN IV SEE PROTOCOL Last administered on 09/24/21at 04:21; Start 09/22/21 at 18:00 Propofol 100 ml @ 2.244 mls/ hr CONT PRN IV PER PROTOCOL Last administered on 09/22/21at 17:39; Start 09/22/21 at 18:00 Sodium Chloride 500 ml @ 500 mls/hr 1X PRN PRN IV SEE COMMENTS; Start 09/22/21 at 18:00 Atropine Sulfate (ATROPINE 0.5mg SYRINGE) 0.5 mg PRN Q5MIN PRN IV SEE COMMENTS; Start 09/22/21 at 18:00 Famotidine (Pepcid Vial) 20 mg BID IVP Last administered on 09/22/21at 21:58; Start 09/22/21 at 21:00; Stop 09/23/21 at 08:32; Status DC Midazolam HCl (Versed) 2 mg 1X ONCE IV Last administered on 09/22/21at 18:15; Start 09/22/21 at 18:15; Stop 09/22/21 at 18:16; Status DC Lidocaine/ Epinephrine (LIDOCAINE 2%-EPI 1:100,000 multi-dose) 20 ml 1X ONCE IJ Last administered on 09/22/21at 18:17; Start 09/22/21 at 18:15; Stop 09/22/21 at 18:16; Status DC Cefazolin Sodium (Ancef) 1 gm 1X ONCE IVP Last administered on 09/22/21at 18:15; Start 09/22/21 at 18:15; Stop 09/22/21 at 18:16; Status DC Propofol 100 ml @ 2.244 mls/ hr CONT PRN IV PER PROTOCOL; Start 09/22/21 at 1 8:15; Status UNV Ondansetron HCl (Zofran) 4 mg PRN Q4HRS PRN IVP NAUSEA/VOMITING; Start 09/22/21 at 18:45 Acetaminophen (Tylenol Supp) 650 mg PRN Q6HRS PRN LA MILD PAIN / TEMP > 100.3'F Last administered on 09/25/21at 00:26; Start 09/22/21 at 18:45 Bisacodyl (Dulcolax Supp) 10 mg PRN DAILY PRN LA CONSTIPATION; Start 09/22/21 at 18:45 Promethazine HCl (Phenergan Supp) 12.5 mg PRN Q6HRS PRN LA NAUSEA/VOMITING; Start 09/22/21 at 18:45 Ampicillin Sodium/ Sulbactam Sodium 3 gm/Sodium Chloride 100 ml @ 200 mls/hr Q6HRS IV Last administered on 09/25/21at 12:21; Start 09/22/21 at 18:45; Stop 09/25/21 at 16:21; Status DC Dopamine HCl/ Dextrose 250 ml @ 28.05 mls/ hr CONT PRN IV SEE I/O RECORD Last administered on 09/23/21at 08:44; Start 09/22/21 at 18:45 Lidocaine/ Epinephrine (LIDOCAINE 2%-EPI 1:100,000 multi-dose) 20 ml STK-MED ONCE .ROUTE ; Start 09/22/21 at 18:53; Stop 09/22/21 at 18:53; Status DC Midazolam HCl (Versed) 2 mg STK-MED ONCE .ROUTE ; Start 09/22/21 at 18:53; Stop 09/22/21 at 18:53; Status DC Cefazolin Sodium (Ancef) 1 gm STK-MED ONCE IVP ; Start 09/22/21 at 18:53; Stop 09/22/21 at 18:53; Status DC Fentanyl Citrate (Fentanyl 2ml Vial) 25 mcg PRN Q3HRS PRN IVP SEVERE PAIN 7-10; Start 09/22/21 at 21:30; Status Cancel Famotidine (Pepcid Vial) 20 mg DAILY IVP Last administered on 10/03/21at 08:56; Start 09/23/21 at 09:00; Stop 10/03/21 at 11:35; Status DC Heparin Sodium (Porcine) (Heparin Sodium) 5,000 unit Q12HR SQ Last administered on 09/23/21at 20:45; Start 09/23/21 at 21:00; Stop 09/23/21 at 22:59; Status DC Norepinephrine Bitartrate 8 mg/ Dextrose 258 ml @ 13.971 mls/ hr CONT PRN IV PER PROTOCOL Last administered on 09/23/21at 22:14; Start 09/23/21 at 11:45 Ampicillin Sodium/ Sulbactam Sodium 3 gm/Sodium Chloride 100 ml @ 200 mls/hr Q12HR IV Last administered on 09/28/21at 07:52; Start 09/25/21 at 21:00; Stop 09/28/21 at 13:20; Status DC Levetiracetam 500 mg/Dextrose 105 ml @ 420 mls/hr Q12HR IV Last administered on 10/06/21at 08:29; Start 09/26/21 at 04:00 Furosemide (Lasix) 20 mg 1X ONCE IVP Last administered on 09/26/21at 13:15; Start 09/26/21 at 13:15; Stop 09/26/21 at 13:16; Status DC Ampicillin Sodium/ Sulbactam Sodium 3 gm/Sodium Chloride 100 ml @ 200 mls/hr Q6HRS IV Last administered on 10/06/21at 05:59; Start 09/28/21 at 18:00 Acetaminophen (Tylenol) 650 mg PRN Q6HRS PRN PEG MILD PAIN / TEMP > 100.3'F Last administered on 09/30/21at 20:52; Start 09/29/21 at 09:45 Famotidine (Pepcid Vial) 20 mg BID IVP Last administered on 10/06/21at 08:28; Start 10/03/21 at 21:00 Active Scripts Active Reported Urea 227 Gm Cream..g. 1 Tata TP DAILY 30 Days Crestor (Rosuvastatin Calcium) 40 Mg Tablet 1 Tab PO DAILY Namenda (Memantine Hcl) 10 Mg Tablet 1 Tab PO BID Pantoprazole Sodium (Pantoprazole Sodium) 40 Mg Tablet.dr 40 Mg PO DAILYAC Lisinopril 40 Mg Tablet 0.5 Tab PO DAILY Levothyroxine Sodium 50 Mcg Tablet 1 Tab PO DAILY Xolegel (Ketoconazole) 45 Gm Gel..gram. 1 Tata TP BID 30 Days Isosorbide Mononitrate Er (Isosorbide Mononitrate) 60 Mg Tab.er.24h 1 Tab PO DAILY Hydrophor Ointment (Mineral Oil/Hydrophil Petrolat) 454 Gm Oint...g. 454 Gm TP PRN PRN Zetia (Ezetimibe) 10 Mg Tablet 1 Tab PO DAILY 30 Days Donepezil Hcl 10 Mg Tablet 1 Tab PO DAILY Clopidogrel (Clopidogrel Bisulfate) 75 Mg Tablet 75 Mg PO DAILY Celexa (Citalopram Hydrobromide) 40 Mg Tablet 1 Tab PO DAILY Vitamin D3 (Vitamin D) 25 Mcg Tablet 25 Mcg PO DAILY 1,000 UNITS = 25 MCG Thera Tears (Carboxymethylcellulose Sodium) 15 Ml Drops 1 Drop EACHEYE QID Atenolol 25 Mg Tablet 1 Tab PO DAILY Amlodipine Besylate 5 Mg Tablet 5 Mg PO DAILY Vitals/I & O Vital Sign - Last 24 Hours 10/05/21 10/05/21 10/05/21 10/05/21 09:00 09:06 10:00 11:00 Pulse 70 70 70 Resp 12 12 12 B/P (MAP) 111/53 (72) 135/61 (85) 135/57 (83) Pulse Ox 100 100 100 100 O2 Delivery Ventilator Ventilator Ventilator Ventilator 10/05/21 10/05/21 10/05/21 10/05/21 12:00 12:00 12:02 13:00 Temp 97.9 97.9 Pulse 70 70 Resp 14 12 B/P (MAP) 126/51 (76) 120/54 (76) Pulse Ox 100 100 100 O2 Delivery Ventilator Mechanical Ventilator Ventilator Ventilator 10/05/21 10/05/21 10/05/21 10/05/21 14:00 14:03 15:00 15:45 Pulse 70 70 Resp 13 12 B/P (MAP) 134/55 (81) 134/61 (85) Pulse Ox 100 100 100 100 O2 Delivery Ventilator Ventilator Ventilator Ventilator 10/05/21 10/05/21 10/05/21 10/05/21 16:00 16:00 16:32 17:00 Temp 98.3 98.3 Pulse 70 70 Resp 12 12 B/P (MAP) 128/56 (80) 140/61 (87) Pulse Ox 100 100 100 O2 Delivery Mechanical Ventilator Ventilator Ventilator Ventilator 10/05/21 10/05/21 10/05/21 10/05/21 18:00 19:00 19:00 20:00 Temp 98.7 98.7 Pulse 70 68 68 Resp 12 12 12 B/P (MAP) 140/58 (85) 140/61 (87) 143/76 (98) Pulse Ox 100 100 100 100 O2 Delivery Ventilator Ventilator Ventilator Ventilator 10/05/21 10/05/21 10/05/21 10/05/21 20:00 21:00 21:02 22:00 Pulse 68 69 Resp 12 12 B/P (MAP) 131/57 (81) 140/64 (89) Pulse Ox 100 100 100 O2 Delivery Mechanical Ventilator Ventilator Ventilator Ventilator 10/05/21 10/05/21 10/06/21 10/06/21 23:00 23:30 00:00 00:00 Temp 98.5 98.5 Pulse 72 68 Resp 12 12 B/P (MAP) 149/64 (92) 151/67 (95) Pulse Ox 100 100 100 O2 Delivery Ventilator Ventilator Mechanical Ventilator Ventilator 10/06/21 10/06/21 10/06/21 10/06/21 01:00 01:07 02:00 03:00 Pulse 70 69 Resp 12 12 B/P (MAP) 151/65 (93) 153/65 (94) Pulse Ox 100 100 100 100 O2 Delivery Ventilator Ventilator Ventilator Ventilator 10/06/21 10/06/21 10/06/21 10/06/21 03:00 04:00 04:00 05:00 Temp 98.6 98.6 Pulse 69 69 69 Resp 12 12 12 B/P (MAP) 142/62 (88) 158/65 (96) 145/57 (86) Pulse Ox 100 100 100 O2 Delivery Ventilator Mechanical Ventilator Ventilator Ventilator 10/06/21 10/06/21 10/06/21 10/06/21 05:18 06:00 07:00 08:00 Pulse 69 70 Resp 16 12 B/P (MAP) 154/66 (95) 134/56 (82) Pulse Ox 100 100 100 O2 Delivery Ventilator Ventilator Ventilator Mechanical Ventilator 10/06/21 10/06/21 08:00 08:08 Temp 98.4 98.4 Pulse 70 Resp 12 B/P (MAP) 143/57 (85) Pulse Ox 100 100 O2 Delivery Ventilator Ventilator Intake and Output 10/05/21 10/05/21 10/06/21 15:00 23:00 07:00 Intake Total 405 ml 1318 ml 1167 ml Output Total 425 ml 630 ml 405 ml Balance -20 ml 688 ml 762 ml Justicifation of Admission Dx: Justifications for Admission: Justification of Admission Dx: N/A APPELBAUM,BRIDGETTE S MD Oct 06, 2021 08:52
--- NOTE | 2021-10-06 10:06 | PDOC ---
PULMONARY PROGRESS NOTES DATE: 10/06/21 TIME: 10:04 Subjective on vent peep 5 fio2 35% off sedation since 09/26 no response mod ett secretion Vitals Vital Signs Date Time Temp Pulse Resp B/P (MAP) Pulse Ox O2 Delivery O2 Flow Rate FiO2 10/06/21 09:00 70 14 139/61 (87) 100 Ventilator 10/06/21 08:00 98.4 98.4 Comments ros unable to obtain on vent not following commands HEENT: Other (nc at orally intubated nose clear neck no lad no thyromegaly) Lungs: Clear Cardiovascular: S1, S2 Abdomen: Soft Neuro Exam: Alert Extremities: Other (Some edema) Skin: Warm Labs Laboratory Tests Test 10/05/21 09:15 10/06/21 04:10 10/06/21 08:00 O2 Saturation 99 % (92-99) 98 % (92-99) Arterial Blood pH 7.52 (7.35-7.45) 7.47 (7.35-7.45) Arterial Blood pCO2 at Patient Temp 31 mmHg (35-46) 30 mmHg (35-46) Arterial Blood pO2 at Patient Temp 156 mmHg (65-108) 147 mmHg (65-108) Arterial Blood HCO3 24 mmol/L (21-28) 21 mmol/L (21-28) Arterial Blood Base Excess 2 mmol/L (-3-3) -2 mmol/L (-3-3) FiO2 35 35 White Blood Count 5.3 x10^3/uL (4.0-11.0) Red Blood Count 2.92 x10^6/uL (4.30-5.70) Hemoglobin 9.5 g/dL (13.0-17.5) Hematocrit 28.0 % (39.0-53.0) Mean Corpuscular Volume 96 fL (79-100) Mean Corpuscular Hemoglobin 33 pg (25-35) Mean Corpuscular Hemoglobin Concent 34 g/dL (31-37) Red Cell Distribution Width 14.7 % (11.5-14.5) Platelet Count 198 x10^3/uL (140-400) Neutrophils (%) (Auto) 72 % (31-73) Lymphocytes (%) (Auto) 19 % (24-48) Monocytes (%) (Auto) 4 % (0-9) Eosinophils (%) (Auto) 4 % (0-3) Basophils (%) (Auto) 1 % (0-3) Neutrophils # (Auto) 3.9 x10^3/uL (1.8-7.7) Lymphocytes # (Auto) 1.0 x10^3/uL (1.0-4.8) Monocytes # (Auto) 0.2 x10^3/uL (0.0-1.1) Eosinophils # (Auto) 0.2 x10^3/uL (0.0-0.7) Basophils # (Auto) 0.0 x10^3/uL (0.0-0.2) Sodium Level 149 mmol/L (136-145) Potassium Level 3.4 mmol/L (3.5-5.1) Chloride Level 115 mmol/L (98-107) Carbon Dioxide Level 27 mmol/L (21-32) Anion Gap 7 (6-14) Blood Urea Nitrogen 28 mg/dL (8-26) Creatinine 0.9 mg/dL (0.7-1.3) Estimated GFR (Cockcroft-Gault) 80.0 Glucose Level 121 mg/dL (70-99) Calcium Level 7.9 mg/dL (8.5-10.1) Laboratory Tests Test 10/06/21 04:10 10/06/21 08:00 White Blood Count 5.3 x10^3/uL (4.0-11.0) Red Blood Count 2.92 x10^6/uL (4.30-5.70) Hemoglobin 9.5 g/dL (13.0-17.5) Hematocrit 28.0 % (39.0-53.0) Mean Corpuscular Volume 96 fL (79-100) Mean Corpuscular Hemoglobin 33 pg (25-35) Mean Corpuscular Hemoglobin Concent 34 g/dL (31-37) Red Cell Distribution Width 14.7 % (11.5-14.5) Platelet Count 198 x10^3/uL (140-400) Neutrophils (%) (Auto) 72 % (31-73) Lymphocytes (%) (Auto) 19 % (24-48) Monocytes (%) (Auto) 4 % (0-9) Eosinophils (%) (Auto) 4 % (0-3) Basophils (%) (Auto) 1 % (0-3) Neutrophils # (Auto) 3.9 x10^3/uL (1.8-7.7) Lymphocytes # (Auto) 1.0 x10^3/uL (1.0-4.8) Monocytes # (Auto) 0.2 x10^3/uL (0.0-1.1) Eosinophils # (Auto) 0.2 x10^3/uL (0.0-0.7) Basophils # (Auto) 0.0 x10^3/uL (0.0-0.2) Sodium Level 149 mmol/L (136-145) Potassium Level 3.4 mmol/L (3.5-5.1) Chloride Level 115 mmol/L (98-107) Carbon Dioxide Level 27 mmol/L (21-32) Anion Gap 7 (6-14) Blood Urea Nitrogen 28 mg/dL (8-26) Creatinine 0.9 mg/dL (0.7-1.3) Estimated GFR (Cockcroft-Gault) 80.0 Glucose Level 121 mg/dL (70-99) Calcium Level 7.9 mg/dL (8.5-10.1) O2 Saturation 98 % (92-99) Arterial Blood pH 7.47 (7.35-7.45) Arterial Blood pCO2 at Patient Temp 30 mmHg (35-46) Arterial Blood pO2 at Patient Temp 147 mmHg (65-108) Arterial Blood HCO3 21 mmol/L (21-28) Arterial Blood Base Excess -2 mmol/L (-3-3) FiO2 35 Medications Active Scripts Medications Dose Route/Sig Max Daily Dose Days Date Category Dose Instructions Urea 227 Gm Cream..g. 1 Tata TP DAILY 30 09/23/21 Reported Crestor (Rosuvastatin Calcium) 40 Mg Tablet 1 Tab PO DAILY 09/23/21 Reported Namenda (Memantine Hcl) 10 Mg Tablet 1 Tab PO BID 09/23/21 Reported Pantoprazole Sodium (Pantoprazole Sodium) 40 Mg Tablet.dr 40 Mg PO DAILYAC 09/23/21 Reported Lisinopril 40 Mg Tablet 0.5 Tab PO DAILY 09/23/21 Reported Levothyroxine Sodium 50 Mcg Tablet 1 Tab PO DAILY 09/23/21 Reported Xolegel (Ketoconazole) 45 Gm Gel..gram. 1 Tata TP BID 30 09/23/21 Reported Isosorbide Mononitrate Er (Isosorbide Mononitrate) 60 Mg Tab.er.24h 1 Tab PO DAILY 09/23/21 Reported Hydrophor Ointment (Mineral Oil/Hydrophil Petrolat) 454 Gm Oint...g. 454 Gm TP PRN PRN 09/23/21 Reported Zetia (Ezetimibe) 10 Mg Tablet 1 Tab PO DAILY 30 09/23/21 Reported Donepezil Hcl 10 Mg Tablet 1 Tab PO DAILY 09/23/21 Reported Clopidogrel (Clopidogrel Bisulfate) 75 Mg Tablet 75 Mg PO DAILY 09/23/21 Reported Celexa (Citalopram Hydrobromide) 40 Mg Tablet 1 Tab PO DAILY 09/23/21 Reported Vitamin D3 (Vitamin D) 25 Mcg Tablet 25 Mcg PO DAILY 09/23/21 Reported 1,000 UNITS = 25 MCG Thera Tears (Carboxymethylcellulose Sodium) 15 Ml Drops 1 Drop EACHEYE QID 09/23/21 Reported Atenolol 25 Mg Tablet 1 Tab PO DAILY 09/23/21 Reported Amlodipine Besylate 5 Mg Tablet 5 Mg PO DAILY 09/23/21 Reported Comments cxr reviewed 09/28 Resolved previously seen diffuse interstitial infiltrates secondary to CHF Impression . IMPRESSION: 1. Acute hypoxemic respiratory failure secondary to complete heart block. 2. 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 3. Acute kidney injury. 4. Elevated liver chemistries. 5. Non-ST segment elevation myocardial infarction. 6. Severe protein malnutrition, present upon admission. 7. Respiratory alkalosis. Minute ventilation adjust 8. Patient does assist ventilator, brainstem function intact 9. Possible seizures 10. Anoxic brain injury Plan . Updated 10/06 Discussed with RN and Dr. Vargas. Patient has been off sedation since 09/26. 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 He has intact brainstem reflexes but likely has anoxic brain injury. I would recommend another meeting with the patient's family regarding comfort care. cont vent support setting reviewed, off sedation since 09/26 elevate hob Continue current support abx pepcid scds for prophylaxis discussed w rn Updated 10/05 cont vent support setting reviewed, sbt when awake off sedation since 09/26 elevate hob Continue current support abx pepcid scds for prophylaxis discussed w rn Updated 10/04 cont vent support setting reviewed, sbt when awake elevate hob Continue current support abx pepcid scds for prophylaxis Patient and family wishes to wait a couple more days before final decision Updated 10/03 Continue current support Patient and family wishes to wait a couple more days before final decision 10/02 nasal 9 discussed with stitcher around meeting later today with Dr. Flood I would recommend discontinuing support allow natural GAGE CALLAHAN MD Oct 06, 2021 10:06
--- NOTE | 2021-10-06 12:51 | PDOC ---
KEKE ARGUETA [employer] 10/06/21 1251: CARDIO Progress Notes Date and Time Date of Service 10/06/21 Time of Evaluation 1250 Subjective Subjective: Other (intubated ) Vitals Vitals Vital Signs Date Time Temp Pulse Resp B/P (MAP) Pulse Ox O2 Delivery O2 Flow Rate FiO2 10/06/21 12:00 98.8 70 12 150/70 (96) 100 Ventilator 98.8 Weight Weight [ ] Input and Output Intake and Output Intake and Output 10/06/21 07:00 Intake Total 2890 ml Output Total 1460 ml Balance 1430 ml IV Total 558 ml Tube Feeding 1532 ml Other 800 ml Output Urine Total 1460 ml Laboratory Labs Laboratory Tests Test 10/06/21 04:10 10/06/21 08:00 White Blood Count 5.3 x10^3/uL (4.0-11.0) Red Blood Count 2.92 x10^6/uL (4.30-5.70) Hemoglobin 9.5 g/dL (13.0-17.5) Hematocrit 28.0 % (39.0-53.0) Mean Corpuscular Volume 96 fL (79-100) Mean Corpuscular Hemoglobin 33 pg (25-35) Mean Corpuscular Hemoglobin Concent 34 g/dL (31-37) Red Cell Distribution Width 14.7 % (11.5-14.5) Platelet Count 198 x10^3/uL (140-400) Neutrophils (%) (Auto) 72 % (31-73) Lymphocytes (%) (Auto) 19 % (24-48) Monocytes (%) (Auto) 4 % (0-9) Eosinophils (%) (Auto) 4 % (0-3) Basophils (%) (Auto) 1 % (0-3) Neutrophils # (Auto) 3.9 x10^3/uL (1.8-7.7) Lymphocytes # (Auto) 1.0 x10^3/uL (1.0-4.8) Monocytes # (Auto) 0.2 x10^3/uL (0.0-1.1) Eosinophils # (Auto) 0.2 x10^3/uL (0.0-0.7) Basophils # (Auto) 0.0 x10^3/uL (0.0-0.2) Sodium Level 149 mmol/L (136-145) Potassium Level 3.4 mmol/L (3.5-5.1) Chloride Level 115 mmol/L (98-107) Carbon Dioxide Level 27 mmol/L (21-32) Anion Gap 7 (6-14) Blood Urea Nitrogen 28 mg/dL (8-26) Creatinine 0.9 mg/dL (0.7-1.3) Estimated GFR (Cockcroft-Gault) 80.0 Glucose Level 121 mg/dL (70-99) Calcium Level 7.9 mg/dL (8.5-10.1) O2 Saturation 98 % (92-99) Arterial Blood pH 7.47 (7.35-7.45) Arterial Blood pCO2 at Patient Temp 30 mmHg (35-46) Arterial Blood pO2 at Patient Temp 147 mmHg (65-108) Arterial Blood HCO3 21 mmol/L (21-28) Arterial Blood Base Excess -2 mmol/L (-3-3) FiO2 35 Physical Exam HEENT: Neck Supple W Full Motion Chest: Symmetric LUNGS: Other (mechanical vent ) Heart: RRR (AV paced), other (distant heart tones ) Abdomen: Other (soft ) Extremities: No Edema Neurology: other (off sedation, minimally responsive to tactile stimuli, posturing ) Assessment Assessment 1. Cardiac arrest due to pacemaker battery depletion 2. SSS s/p PPM. s/p generator change AV pacing 3. NSTEMI - type 2. 4. Cardiomyopathy; echo with LVEF 45% 5. EDWIN: much improved 6. Cardiogenic shock: BP better 7. Acute respiratory failure due to #1 8. Probable aspiration PNA 9. Elevated LFTs, shock liver; improving 10. Anoxic Encephalopathy 11 . Hypokalemia, hypernatremia Recommendations Continue vent management per pulmonary team Poor prognosis, supportive care. Await family meeting to readdress goals of care Justicifation of Admission Dx: Justifications for Admission: Justification of Admission Dx: N/A DENIS CHEUNG MD 10/07/21 1255: CARDIO Progress Notes Plan Plan Late entry for 10/06/2021 Patient seen and examined. Agree with above nurse practitioner note [place]KE [place]GA MI Oct 06, 2021 12:51 DENIS CHEUNG MD Oct 07, 2021 12:55
--- NOTE | 2021-10-06 14:06 | NUR ---
SS following up with discharge planning. SS reviewed pt chart and discussed with pt RN. Pt is currently on the vent at 35%. COVID19 negative. Pt on IV Keppra. Unresponsive. Physicians discussing goals of care with pt's family. SS will continue to follow for discharge planning.
--- NOTE | 2021-10-06 16:55 | NUR ---
Wound/Ostomy Care Wound Type/Assessment: Wound consult for skin tear to chest and knee. Pt has skin tears to right chest and left knee as well as left ear. Treatment Recommendations/Plan: Cleanse wounds, apply xeroform and foam/bandaid, change every 3 days. Education provided: pt not responsive Offloading surface/device: ICU bed Recommended Referrals/Tests: na Discharge Recommendations for dressings: see above
[2021-10-07] VITALS (21 sets, daily range): BP systolic 114–157; BP diastolic 48–70
[2021-10-07 08:38] LABS: BASE EXCESS ABG 1 mmol/L (-3-3); HCO3 ABG 24 mmol/L (21-28); PCO2 ABG 32 mmHg (35-46); PO2 ABG 148 mmHg (65-108); SAT O2 ABG 99 % (92-99)
--- NOTE | 2021-10-07 08:38 | PDOC ---
[employer] PROGRESS NOTE Date of Service DOS: DATE: 10/07/21 TIME: 08:31 Chief Complaint Chief Complaint A/P: Acute hypoxic respiratory failure - likely due to aspiration pneumonia from vomiting likely from symptomatic 3rd degree heart block. Will cont vent, wean O2 as tolerated. Unasyn for aspiration pneumonia coverage. Consult pulmonology for vent management assistance PEA arrest - likely from above aspiration event, complicated by 3rd degree heart block. ROSC obtained Third degree heart block - s/p PPM generator change with apparent recovery of heart rate. Cont dopamine. ICU admission Abnormal chest CT - likely due to due to pneumonia Nausea and vomiting - likely from CHB, will treat for pneumonia, will rule out other infectious etiology. IV anti-emetics Fall - second fall in a week. If neurologic recovery occurs needs gait testing, though likely this was related to cardiac event Closed head injury - posterior scalp abrasion, local wound care. Monitor neurologic function. Anemia - will check iron studies, likely of chronic disease Thrombocytopenia - unclear etiology, will trend EDWIN - likely vasomotor nephropathy from arrest. Family does not know of any history of CKD, will order [facility] records Lactic acidosis - likely due to hypoxia, will trend Transaminitis - likely related to shock liver, will monitor Elevated trop - demand ischemia from 3rd degree heart block, likely, will trend out. HTN - will add back home meds as BP allows HLD - statin when taking PO FEN - NPO. NGT feed Vital AF @ 40 ml/hr and free water flushes 200 ml q 6 PPX - pepcid, lovenox CODE - partial - no chest compressions Dispo - ICU. Patient family arrived next 24 hours to discuss ongoing plan. Addendum: I have discussed with bryn Painting and Seng Felix about overall goals of care and they have requested to "wait another week". Have advised him of the potential risks of ventilator associated pneumonia bedsores and other potential infections and have recommended after 14 days on the ventilator to consider tracheostomy and feeding tube if they want to continue care also offered palliative care and hospice care they are still precontemplative and do not want to move forward with any surgical procedures. They have made it clear if he does have a cardiac arrest he would not like chest compressions and would not like to be on the ventilator for "a year" History of Present Illness History of Present Illness Mr Creda is an 86-year-old male with PMHx HTN, HLD s/p PPM who presented to [facility] in [place] via EMS after a PEA cardiac arrest. Per his son, he was at home and in the presence of son and son-in-law when he was observed actively choking and subsequently falling on the floor with significant amount of emesis that was nonbloody and nonbilious in nature. Son reports vomit with recently ingested food and laying his father on his side and cleaning out his mouth while son-in-law called EMS. On EMS arrival ~3 minutes later, patient was unresponsive and cyanotic and they intubated. En-route patient was found to be pulseless in PEA and appropriate ACLS measures were followed with application of Howard device for chest compressions, and per report had a total of x2 epinephrine administered via left tibial IO. After approximately 5 minutes ROSC was obtained. In ED was noted unresponsive with pinpoint pupils and GCS 3 with no purposeful movements. Per EMS report and son the patient takes Plavix, lisinopril, rosuvastatin and citalopram at home. He has a pacemaker per son, which was placed in [place] over 10 years ago, and the son says he follows at [facility], doesn't know about pacer follow up. Per son he fell 4 days prior and [facility] noted on his [facility]iput. Family notes he has been more weak than usual over past 72 hours, no travel or sick contacts. Is fully vaccinated against COVID 19. EKG appeared with third-degree heart block at 42 bpm, left axis deviation, T wave inversion noted in lead I, III, V2-6, no STEMI Vitals obtained concerning for marked bradycardia and no respiratory effort Labs with WBC 9.1, Hb 11.4, platelets 128, ABG 7.2 7/42/459 on 100% FiO2, rapid COVID-19 negative, NA 137, K4.2, BUN 50, CR 2, glucose 247, lactic acid 8.6, calcium 8.6, bilirubin 0.6, AST 131, ALT 157, alkaline phosphatase 90, ammonia 25, albumin 3, troponin 0.134, INR 1.1, urinalysis bland. CT head and neck with no acute abnormalities. CT chest with bibasilar infiltrates and NGT and ETT in good positioning. color television console monitor concerning for third-degree heart block, with rate in the 20s, therefore 1 mg epinephrine administered with minimal improvement in HR, then 1 mg atropine without significant improvement, then dopamine gtt without sustained improvement. 3 L IV fluid administered and unasyn for aspiration pneumonitis. Ultimately was responsive to transcutaneous pacing and after discussion with cardiology he was transferred to [facility] for further care. 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 Seen in ICU. Discussed with son bedside. 09/23: Afebrile, on vent with FiO2 50%, PEEP 5. Continue dopamine gtt. We will continue Unasyn for aspiration pneumonia. Chest x-ray showed suspected partially consolidated left lower lobe infiltrate superimposed on right lower and bilateral upper lobe multifocal interstitial infiltrate.. Critical care time 30 minutes spent reviewing charts, general labs, reviewing imaging, and discussion with RN. 09/24: Afebrile. On vent with FiO2 40%, PEEP 5. Remains on pressor support. Off dopamine. Will continue Unasyn for pneumonia. Continue to wean off vent. Critical care time 30 minutes spent reviewing charts, general labs, reviewing imaging, discussion with Dr. Mcdaniel. 09/25: Low-grade fever overnight, T-max 100.6 F. On vent with FiO2 35%, PEEP 5. Chest x-ray yesterday showed diffuse increased interstitial opacity likely due to interstitial infiltrate. Continue IV antibiotics. He has been off sedation for the past 24 hours. Platelets have steadily dropped; platelets 89 today. I discussion with daughter and son-in-law by phone about concerns for worsening bruising and, cytopenia. They are agreeable to no chest compressions, as to not cause any further damage that may lead to prolonged intubation. We will continue to wean off ventilator. 30 minutes critical care time spent reviewing charts, reviewing labs, reviewing imaging, discussion with RN, and discussion with Dr. Ortiz. 09/26: Afebrile. On vent with FiO2 35%, PEEP 5. Chest x-ray today showing stable diffuse interstitial infiltrate. Platelets [address] Brand was consulted yesterday; he is discussed with family the likely poor prognosis. Sister wants to fly in from [place] to see him. Family would like DNR but chemical code; son-in-law will discuss with the rest of family. Critical care time 30 minutes spent reviewing chart, reviewing labs, reviewing imaging, discussing with Dr. Ortiz. 09/27: Afebrile; on vent with FiO2 50%, PEEP 5. Off. For 72 hours. Some spontaneous movements noted this morning. I believe family is flying in from [place] to see him prior to making full DNR; chemical code. Critical care time 30 minutes spent reviewing charts, general labs, reviewing imaging, and discuss ion with RN. 09/28: Febrile overnight, T-max 102.0 F. 09/29: Patient evaluated examined at bedside. Remains off sedation. But still pretty unresponsive. Absent brainstem reflexes. Will attempt to contact family today to see if they are in fact coming in from [place]. Still on Levophed and dopamine. . Critical care time 30 minutes spent reviewing charts, reviewing labs, imaging, discussion with RN. 09/30: Patient evaluated and examined at bedside. Still off sedation and unresponsive. Still on Levophed for blood pressure support. Family supposed to arrive today for discussion of ongoing care. Critical care time 30 minutes spent reviewing charts, reviewing labs, imaging, discussion with RN. 10/01: Patient evaluated and examined at bedside. Still intubated and unresponsive. Requiring pressors. Talk to patient's son on phone today for 15 minutes discussing advanced care planning. He reported that she has not been able to discuss ongoing care with his sister as she works in the afternoons and he works in the evenings. Provided clinical updates to him told him about no real improvement at this point. Still remains on high ventilator settings. Planning to meet with him tomorrow afternoon at bedside for further discussion.Critical care time 30 minutes spent reviewing charts, reviewing labs, imaging, discussion with RN 10/02: Patient evaluated examined at bedside. Still intubated minimally responsive even without sedation. Waiting for son to arrive at bedside for care discussion. Otherwise continuing current plans. I spent 35 minutes critical care time reviewing charts labs imaging and discussion with subspecialist and nursing team. 10/03: Patient evaluated examined at bedside. I discussed with the family yesterday for approximately 35 minutes ongoing care plans. During that time patient did have some extremity movement along with some head movement showing discomfort from the ventilator. With this family would like to continue care for now. I spoke with them again at bedside today and that they would like to continue on until at least tomorrow evening. Still think very poor prognosis. However will honor family wishes. Plan of care discussed with bedside RN. I spent 35 minutes critical care time reviewing charts labs imaging and discussion with specialists and nursing team 10/04: Late entry for October 04. Patient evaluated at bedside. Still with some movements in his extremities. Still intubated minimally responsive despite being off sedation for over a week. Continue discussion of goals with family. 35 minutes critical care time. 10/05: Patient evaluated examined at bedside. Hyponatremic this morning on review does appear his sodium has been creeping up. We will increase free water flushes. Family continues discussing goals of care. Here to provide them any information needed. 33 minutes critical care time 10/06: Overnight no events. NA 149, K3.4, Hb 9.5. No meaningful movement off sedation over a week. Overnight afebrile. Withdraws from pain requiring great toe reflex is breathing over the ventilator. Brainstem reflexes intact seems to be anoxic brain injury. CC time 30 min Vitals/I&O Vitals/I&O: Vital Signs Date Time Temp Pulse Resp B/P (MAP) Pulse Ox O2 Delivery O2 Flow Rate FiO2 10/07/21 06:00 70 12 128/56 (80) 100 Ventilator 10/07/21 04:00 98.9 98.9 I & O 10/06/21 10/06/21 10/07/21 15:00 23:00 07:00 Intake Total 505 ml 1098 ml 1077 ml Output Total 535 ml 510 ml 450 ml Balance -30 ml 588 ml 627 ml Physical Exam General: Other (Intubated sedated) Heart: Regular rate Lungs: Clear Abdomen: Normal bowel sounds Extremities: No clubbing, No cyanosis, No edema, Normal pulses, No tenderness/swelling Skin: Other (Extensive bruising to anterior chest wall) Comment Review of Relevant I have reviewed the following items ivania (where applicable) has been applied. Justifications for Admission Chest Pain Indications Respiratory Distress?: Yes Justification for admission: Patient's respiratory distress as indicated by (SOB/tachypnea/abnormal breathing pattern plus hypoxemia/AMS/other evidence of respiratory compromise such as pulmonary edema on chest x-ray) will need inpatient level of care. Serious Diagnosis?: Yes Justification for admission: Chest pain may be indicative of potentially serious diagnosis/diagnoses Please state condition(s) which will require inpatient level of care for further evaluation and management. Other Justification TERESA CASTRO MD Oct 07, 2021 08:38
[2021-10-07 08:41] LABS: FIO2 ABG 35
[2021-10-07] MEDS: levETIRAcetam 500 MG in IV DEXTROSE 5% 100ML 100 ML IV SCH ×2 (08:57→20:48)
[2021-10-07] MEDS: FAMOTIDINE 20 MG/2 ML VIAL IVP SCH ×2 (08:58→20:49)
[2021-10-07 09:19] LABS: CALCIUM 8.1 mg/dL (8.5-10.1); CREATININE 0.7 mg/dL (0.7-1.3); GFR 106.9; POTASSIUM 3.8 mmol/L (3.5-5.1)
--- NOTE | 2021-10-07 12:05 | PDOC ---
PULMONARY PROGRESS NOTES DATE: 10/07/21 TIME: 11:59 Subjective on vent peep 5 fio2 35% off sedation since 09/26 no response mod ett secretion Vitals Vital Signs Date Time Temp Pulse Resp B/P (MAP) Pulse Ox O2 Delivery O2 Flow Rate FiO2 10/07/21 11:36 100 Ventilator 10/07/21 11:00 70 12 114/55 (74) 10/07/21 08:00 97.9 97.9 Comments ros unable to obtain on vent not following commands HEENT: Other (nc at orally intubated nose clear neck no lad no thyromegaly) Lungs: Clear Cardiovascular: S1, S2 Abdomen: Soft Neuro Exam: Alert Extremities: Other (Some edema) Skin: Warm Labs Laboratory Tests Test 10/06/21 04:10 10/06/21 08:00 10/07/21 08:25 10/07/21 09:00 White Blood Count 5.3 x10^3/uL (4.0-11.0) Red Blood Count 2.92 x10^6/uL (4.30-5.70) Hemoglobin 9.5 g/dL (13.0-17.5) Hematocrit 28.0 % (39.0-53.0) Mean Corpuscular Volume 96 fL (79-100) Mean Corpuscular Hemoglobin 33 pg (25-35) Mean Corpuscular Hemoglobin Concent 34 g/dL (31-37) Red Cell Distribution Width 14.7 % (11.5-14.5) Platelet Count 198 x10^3/uL (140-400) Neutrophils (%) (Auto) 72 % (31-73) Lymphocytes (%) (Auto) 19 % (24-48) Monocytes (%) (Auto) 4 % (0-9) Eosinophils (%) (Auto) 4 % (0-3) Basophils (%) (Auto) 1 % (0-3) Neutrophils # (Auto) 3.9 x10^3/uL (1.8-7.7) Lymphocytes # (Auto) 1.0 x10^3/uL (1.0-4.8) Monocytes # (Auto) 0.2 x10^3/uL (0.0-1.1) Eosinophils # (Auto) 0.2 x10^3/uL (0.0-0.7) Basophils # (Auto) 0.0 x10^3/uL (0.0-0.2) Sodium Level 149 mmol/L (136-145) 146 mmol/L (136-145) Potassium Level 3.4 mmol/L (3.5-5.1) 3.8 mmol/L (3.5-5.1) Chloride Level 115 mmol/L (98-107) 112 mmol/L (98-107) Carbon Dioxide Level 27 mmol/L (21-32) 29 mmol/L (21-32) Anion Gap 7 (6-14) 5 (6-14) Blood Urea Nitrogen 28 mg/dL (8-26) 27 mg/dL (8-26) Creatinine 0.9 mg/dL (0.7-1.3) 0.7 mg/dL (0.7-1.3) Estimated GFR (Cockcroft-Gault) 80.0 106.9 Glucose Level 121 mg/dL (70-99) 124 mg/dL (70-99) Calcium Level 7.9 mg/dL (8.5-10.1) 8.1 mg/dL (8.5-10.1) O2 Saturation 98 % (92-99) 99 % (92-99) Arterial Blood pH 7.47 (7.35-7.45) 7.49 (7.35-7.45) Arterial Blood pCO2 at Patient Temp 30 mmHg (35-46) 32 mmHg (35-46) Arterial Blood pO2 at Patient Temp 147 mmHg (65-108) 148 mmHg (65-108) Arterial Blood HCO3 21 mmol/L (21-28) 24 mmol/L (21-28) Arterial Blood Base Excess -2 mmol/L (-3-3) 1 mmol/L (-3-3) FiO2 35 35 Laboratory Tests Test 10/07/21 08:25 10/07/21 09:00 O2 Saturation 99 % (92-99) Arterial Blood pH 7.49 (7.35-7.45) Arterial Blood pCO2 at Patient Temp 32 mmHg (35-46) Arterial Blood pO2 at Patient Temp 148 mmHg (65-108) Arterial Blood HCO3 24 mmol/L (21-28) Arterial Blood Base Excess 1 mmol/L (-3-3) FiO2 35 Sodium Level 146 mmol/L (136-145) Potassium Level 3.8 mmol/L (3.5-5.1) Chloride Level 112 mmol/L (98-107) Carbon Dioxide Level 29 mmol/L (21-32) Anion Gap 5 (6-14) Blood Urea Nitrogen 27 mg/dL (8-26) Creatinine 0.7 mg/dL (0.7-1.3) Estimated GFR (Cockcroft-Gault) 106.9 Glucose Level 124 mg/dL (70-99) Calcium Level 8.1 mg/dL (8.5-10.1) Medications Active Scripts Medications Dose Route/Sig Max Daily Dose Days Date Category Dose Instructions Urea 227 Gm Cream..g. 1 Tata TP DAILY 30 09/23/21 Reported Crestor (Rosuvastatin Calcium) 40 Mg Tablet 1 Tab PO DAILY 09/23/21 Reported Namenda (Memantine Hcl) 10 Mg Tablet 1 Tab PO BID 09/23/21 Reported Pantoprazole Sodium (Pantoprazole Sodium) 40 Mg Tablet.dr 40 Mg PO DAILYAC 09/23/21 Reported Lisinopril 40 Mg Tablet 0.5 Tab PO DAILY 09/23/21 Reported Levothyroxine Sodium 50 Mcg Tablet 1 Tab PO DAILY 09/23/21 Reported Xolegel (Ketoconazole) 45 Gm Gel..gram. 1 Tata TP BID 30 09/23/21 Reported Isosorbide Mononitrate Er (Isosorbide Mononitrate) 60 Mg Tab.er.24h 1 Tab PO DAILY 09/23/21 Reported Hydrophor Ointment (Mineral Oil/Hydrophil Petrolat) 454 Gm Oint...g. 454 Gm TP PRN PRN 09/23/21 Reported Zetia (Ezetimibe) 10 Mg Tablet 1 Tab PO DAILY 30 09/23/21 Reported Donepezil Hcl 10 Mg Tablet 1 Tab PO DAILY 09/23/21 Reported Clopidogrel (Clopidogrel Bisulfate) 75 Mg Tablet 75 Mg PO DAILY 09/23/21 Reported Celexa (Citalopram Hydrobromide) 40 Mg Tablet 1 Tab PO DAILY 09/23/21 Reported Vitamin D3 (Vitamin D) 25 Mcg Tablet 25 Mcg PO DAILY 09/23/21 Reported 1,000 UNITS = 25 MCG Thera Tears (Carboxymethylcellulose Sodium) 15 Ml Drops 1 Drop EACHEYE QID 09/23/21 Reported Atenolol 25 Mg Tablet 1 Tab PO DAILY 09/23/21 Reported Amlodipine Besylate 5 Mg Tablet 5 Mg PO DAILY 09/23/21 Reported Comments cxr reviewed 09/28 Resolved previously seen diffuse interstitial infiltrates secondary to CHF Impression . IMPRESSION: 1. Acute hypoxemic respiratory failure secondary to complete heart block. 2. 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 3. Acute kidney injury. 4. Elevated liver chemistries. 5. Non-ST segment elevation myocardial infarction. 6. Severe protein malnutrition, present upon admission. 7. Respiratory alkalosis. Minute ventilation adjust 8. Patient does assist ventilator, brainstem function intact 9. Possible seizures 10. Anoxic brain injury Plan . Updated 10/07 Discussed with RN and Dr. Vargas. Patient has been off sedation since 09/26. 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 He has intact brainstem reflexes but likely has anoxic brain injury. I would recommend another meeting with the patient's family regarding comfort care. Have talked to Dr. Vargas and he will be reaching out to the family regarding goals of care cont vent support setting reviewed, off sedation since 09/26 elevate hob Continue current support abx pepcid scds for prophylaxis discussed w rn Updated 10/06 Discussed with RN and Dr. Vargas. Patient has been off sedation since 09/26. 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 He has intact brainstem reflexes but likely has anoxic brain injury. I would recommend another meeting with the patient's family regarding comfort care. cont vent support setting reviewed, off sedation since 09/26 elevate hob Continue current support abx pepcid scds for prophylaxis discussed w rn Updated 10/05 cont vent support setting reviewed, sbt when awake off sedation since 09/26 elevate hob Continue current support abx pepcid scds for prophylaxis discussed w rn Updated 10/04 cont vent support setting reviewed, sbt when awake elevate hob Continue current support abx pepcid scds for prophylaxis Patient and family wishes to wait a couple more days before final decision Updated 10/03 Continue current support Patient and family wishes to wait a couple more days before final decision 10/02 discussed with security sales consultant meeting later today with Dr. Flood I would recommend discontinuing support allow natural GAGE CALLAHAN MD Oct 07, 2021 12:05
--- NOTE | 2021-10-07 12:49 | PDOC ---
EMIR TERRELL CHILLER HAND 10/07/21 1249: CARDIO Progress Notes Date and Time Date of Service 10/07/2021 Time of Evaluation 1230 Subjective Subjective: Other (intubated ) Vitals Vitals Vital Signs Date Time Temp Pulse Resp B/P (MAP) Pulse Ox O2 Delivery O2 Flow Rate FiO2 10/07/21 11:36 100 Ventilator 10/07/21 11:00 70 12 114/55 (74) 10/07/21 08:00 97.9 97.9 Weight Weight [ ] Input and Output Intake and Output Intake and Output 10/07/21 07:00 Intake Total 2680 ml Output Total 1495 ml Balance 1185 ml IV Total 260 ml Tube Feeding 1820 ml Other 600 ml Output Urine Total 1495 ml Laboratory Labs Laboratory Tests Test 10/07/21 08:25 10/07/21 09:00 O2 Saturation 99 % (92-99) Arterial Blood pH 7.49 (7.35-7.45) Arterial Blood pCO2 at Patient Temp 32 mmHg (35-46) Arterial Blood pO2 at Patient Temp 148 mmHg (65-108) Arterial Blood HCO3 24 mmol/L (21-28) Arterial Blood Base Excess 1 mmol/L (-3-3) FiO2 35 Sodium Level 146 mmol/L (136-145) Potassium Level 3.8 mmol/L (3.5-5.1) Chloride Level 112 mmol/L (98-107) Carbon Dioxide Level 29 mmol/L (21-32) Anion Gap 5 (6-14) Blood Urea Nitrogen 27 mg/dL (8-26) Creatinine 0.7 mg/dL (0.7-1.3) Estimated GFR (Cockcroft-Gault) 106.9 Glucose Level 124 mg/dL (70-99) Calcium Level 8.1 mg/dL (8.5-10.1) Physical Exam HEENT: Neck Supple W Full Motion Chest: Symmetric LUNGS: Other (mechanical vent ) Heart: RRR (AV paced), other (distant heart tones ) Abdomen: Other (soft ) Extremities: No Edema Neurology: other (off sedation, minimally responsive to tactile stimuli, posturing ) Assessment Assessment 1. Cardiac arrest due to pacemaker battery depletion 2. SSS s/p PPM. s/p generator change AV pacing 3. NSTEMI - type 2. 4. Cardiomyopathy; echo with LVEF 45% 5. EDWIN: much improved 6. Cardiogenic shock: BP better 7. Acute respiratory failure due to #1: remains intubated with vent 8. Probable aspiration PNA 9. Elevated LFTs, shock liver; improving 10. Anoxic Encephalopathy: minimal response to tactile stimulation. no progress 11 . Hypokalemia, hypernatremia: better Recommendations Continue vent management per pulmonary team Poor prognosis, supportive care. Still awaiting family meeting to readdress goals of care, Consider comfort care Justicifation of Admission Dx: Justifications for Admission: Justification of Admission Dx: N/A DENIS CHEUNG MD 10/07/21 1717: CARDIO Progress Notes Plan Plan Pt. seen and examined. Agree with above NUCLEAR PROCESS ENGINEER note. Supportive care. Consider hospice care. Discussed with Dr. Vargas. EMIR TERRELL APRN Oct 07, 2021 12:49 DENIS CHEUNG MD Oct 07, 2021 17:17
--- NOTE | 2021-10-07 14:42 | NUR ---
SS following up with discharge planning. SS reviewed pt chart and discussed with pt RN. Pt is currently on the vent at 35%. No sedation. COVID19 negative. Pt on IV Keppra. Pt unresponsive. No compressions. Chemical Code only. Physician contacting pt's family today to discuss goals of care. SS will continue to follow for discharge planning.
[2021-10-08] VITALS (23 sets, daily range): BP systolic 110–156; BP diastolic 52–79
[2021-10-08 06:19] LABS: CALCIUM 7.8 mg/dL (8.5-10.1); CREATININE 0.7 mg/dL (0.7-1.3); GFR 106.9; POTASSIUM 3.7 mmol/L (3.5-5.1)
--- NOTE | 2021-10-08 08:02 | PDOC ---
[employer] PROGRESS NOTE Date of Service DOS: DATE: 10/08/21 TIME: 07:54 Chief Complaint Chief Complaint A/P: Acute hypoxic respiratory failure - likely due to aspiration pneumonia from vomiting likely from symptomatic 3rd degree heart block. Will cont vent, wean O2 as tolerated. Unasyn for aspiration pneumonia coverage. Consult pulmonology for vent management assistance PEA arrest - likely from above aspiration event, complicated by 3rd degree heart block. ROSC obtained Third degree heart block - s/p PPM generator change with apparent recovery of heart rate. Cont dopamine. ICU admission Abnormal chest CT - likely due to due to pneumonia Nausea and vomiting - likely from CHB, will treat for pneumonia, will rule out other infectious etiology. IV anti-emetics Fall - second fall in a week. If neurologic recovery occurs needs gait testing, though likely this was related to cardiac event Closed head injury - posterior scalp abrasion, local wound care. Monitor neurologic function. Anemia - will check iron studies, likely of chronic disease Thrombocytopenia - unclear etiology, will trend EDWIN - likely vasomotor nephropathy from arrest. Family does not know of any history of CKD, will order [facility] records Lactic acidosis - likely due to hypoxia, will trend Transaminitis - likely related to shock liver, will monitor Elevated trop - demand ischemia from 3rd degree heart block, likely, will trend out. HTN - will add back home meds as BP allows HLD - statin when taking PO FEN - NPO. NGT feed Vital AF @ 40 ml/hr and free water flushes 200 ml q 6 PPX - pepcid, lovenox CODE - partial - no chest compressions Dispo - ICU. Patient family arrived next 24 hours to discuss ongoing plan. Addendum: I have discussed with bryn Painting and Seng Felix about overall goals of care and they have requested to "wait another week". Have advised him of the potential risks of ventilator associated pneumonia bedsores and other potential infections and have recommended after 14 days on the ventilator to consider tracheostomy and feeding tube if they want to continue care also offered palliative care and hospice care they are still precontemplative and do not want to move forward with any surgical procedures. They have made it clear if he does have a cardiac arrest he would not like chest compressions and would not like to be on the ventilator for "a year History of Present Illness History of Present Illness Mr Cerda is an 86-year-old male with PMHx HTN, HLD s/p PPM who presented to [facility] in [place] via EMS after a PEA cardiac arrest. Per his son, he was at home and in the presence of son and son-in-law when he was observed actively choking and subsequently falling on the floor with significant amount of emesis that was nonbloody and nonbilious in nature. Son reports vomit with recently ingested food and laying his father on his side and cleaning out his mouth while son-in-law called EMS. On EMS arrival ~3 minutes later, patient was unresponsive and cyanotic and they intubated. En-route patient was found to be pulseless in PEA and appropriate ACLS measures were followed with application of Howard device for chest compressions, and per report had a total of x2 epinephrine administered via left tibial IO. After approximately 5 minutes ROSC was obtained. In ED was noted unresponsive with pinpoint pupils and GCS 3 with no purposeful movements. Per EMS report and son the patient takes Plavix, lisinopril, rosuvastatin and citalopram at home. He has a pacemaker per son, which was placed in [place] over 10 years ago, and the son says he follows at [facility], doesn't know about pacer follow up. Per son he fell 4 days prior and [facility] noted on his [facility]iput. Family notes he has been more weak than usual over past 72 hours, no travel or sick contacts. Is fully vaccinated against COVID 19. EKG appeared with third-degree heart block at 42 bpm, left axis deviation, T wave inversion noted in lead I, III, V2-6, no STEMI Vitals obtained concerning for marked bradycardia and no respiratory effort Labs with WBC 9.1, Hb 11.4, platelets 128, ABG 7.2 7/42/459 on 100% FiO2, rapid COVID-19 negative, NA 137, K4.2, BUN 50, CR 2, glucose 247, lactic acid 8.6, calcium 8.6, bilirubin 0.6, AST 131, ALT 157, alkaline phosphatase 90, ammonia 25, albumin 3, troponin 0.134, INR 1.1, urinalysis bland. CT head and neck with no acute abnormalities. CT chest with bibasilar infiltrates and NGT and ETT in good positioning. campus monitor concerning for third-degree heart block, with rate in the 20s, therefore 1 mg epinephrine administered with minimal improvement in HR, then 1 mg atropine without significant improvement, then dopamine gtt without sustained improvement. 3 L IV fluid administered and unasyn for aspiration pneumonitis. Ultimately was responsive to transcutaneous pacing and after discussion with cardiology he was transferred to [facility] for further care. To molder labels prior to my assessment, had pacemaker generator replaced emergently. Seen in ICU. Discussed with son bedside. 09/23: Afebrile, on vent with FiO2 50%, PEEP 5. Continue dopamine gtt. We will continue Unasyn for aspiration pneumonia. Chest x-ray showed suspected partially consolidated left lower lobe infiltrate superimposed on right lower and bilateral upper lobe multifocal interstitial infiltrate.. Critical care time 30 minutes spent reviewing charts, general labs, reviewing imaging, and discussion with RN. 09/24: Afebrile. On vent with FiO2 40%, PEEP 5. Remains on pressor support. Off dopamine. Will continue Unasyn for pneumonia. Continue to wean off vent. Critical care time 30 minutes spent reviewing charts, general labs, reviewing imaging, discussion with Dr. Mcdaniel. 09/25: Low-grade fever overnight, T-max 100.6 F. On vent with FiO2 35%, PEEP 5. Chest x-ray yesterday showed diffuse increased interstitial opacity likely due to interstitial infiltrate. Continue IV antibiotics. He has been off sedation for the past 24 hours. Platelets have steadily dropped; platelets 89 today. I discussion with daughter and son-in-law by phone about concerns for worsening bruising and, cytopenia. They are agreeable to no chest compressions, as to not cause any further damage that may lead to prolonged intubation. We will continue to wean off ventilator. 30 minutes critical care time spent reviewing charts, reviewing labs, reviewing imaging, discussion with RN, and discussion with Dr. Ortiz. 09/26: Afebrile. On vent with FiO2 35%, PEEP 5. Chest x-ray today showing stable diffuse interstitial infiltrate. Platelets [address] Brand was consulted yesterday; he is discussed with family the likely poor prognosis. Sister wants to fly in from [place] to see him. Family would like DNR but chemical code; son-in-law will discuss with the rest of family. Critical care time 30 minutes spent reviewing chart, reviewing labs, reviewing imaging, discussing with Dr. Ortiz. 09/27: Afebrile; on vent with FiO2 50%, PEEP 5. Off. For 72 hours. Some spontaneous movements noted this morning. I believe family is flying in from [place] to see him prior to making full DNR; chemical code. Critical care time 30 minutes spent reviewing charts, general labs, reviewing imaging, and discuss ion with RN. 09/28: Febrile overnight, T-max 102.0 F. 09/29: Patient evaluated examined at bedside. Remains off sedation. But still pretty unresponsive. Absent brainstem reflexes. Will attempt to contact family today to see if they are in fact coming in from [place]. Still on Levophed and dopamine. . Critical care time 30 minutes spent reviewing charts, reviewing labs, imaging, discussion with RN. 09/30: Patient evaluated and examined at bedside. Still off sedation and unresponsive. Still on Levophed for blood pressure support. Family supposed to arrive today for discussion of ongoing care. Critical care time 30 minutes spent reviewing charts, reviewing labs, imaging, discussion with RN. 10/01: Patient evaluated and examined at bedside. Still intubated and unresponsive. Requiring pressors. Talk to patient's son on phone today for 15 minutes discussing advanced care planning. He reported that she has not been able to discuss ongoing care with his sister as she works in the afternoons and he works in the evenings. Provided clinical updates to him told him about no real improvement at this point. Still remains on high ventilator settings. Planning to meet with him tomorrow afternoon at bedside for further discussion.Critical care time 30 minutes spent reviewing charts, reviewing labs, imaging, discussion with RN 10/02: Patient evaluated examined at bedside. Still intubated minimally responsive even without sedation. Waiting for son to arrive at bedside for care discussion. Otherwise continuing current plans. I spent 35 minutes critical care time reviewing charts labs imaging and discussion with subspecialist and nursing team. 10/03: Patient evaluated examined at bedside. I discussed with the family yesterday for approximately 35 minutes ongoing care plans. During that time patient did have some extremity movement along with some head movement showing discomfort from the ventilator. With this family would like to continue care for now. I spoke with them again at bedside today and that they would like to continue on until at least tomorrow evening. Still think very poor prognosis. However will honor family wishes. Plan of care discussed with bedside RN. I spent 35 minutes critical care time reviewing charts labs imaging and discussion with specialists and nursing team 10/04: Late entry for October 04. Patient evaluated at bedside. Still with some movements in his extremities. Still intubated minimally responsive despite being off sedation for over a week. Continue discussion of goals with family. 35 minutes critical care time. 10/05: Patient evaluated examined at bedside. Hyponatremic this morning on review does appear his sodium has been creeping up. We will increase free water flushes. Family continues discussing goals of care. Here to provide them any information needed. 33 minutes critical care time 10/06: Overnight no events. NA 149, K3.4, Hb 9.5. No meaningful movement off sedation over a week. 10/07: Overnight afebrile. Withdraws from pain requiring great toe reflex is breathing over the ventilator. Brainstem reflexes intact seems to be anoxic brain injury. discussed with family over the phone the asked for an additional week. I encouraged consideration of comfort care offered tracheostomy and PEG a do not want surgical interventions at this time NA 142 today. On vent 35% FiO2 PEEP of 5 O2 saturations 100%. Has doll's eyes no meaningful movement does withdraw from painful stimuli. Babinski bilaterally. Afebrile CC time 30 min Vitals/I&O Vitals/I&O: Vital Signs Date Time Temp Pulse Resp B/P (MAP) Pulse Ox O2 Delivery O2 Flow Rate FiO2 10/08/21 07:02 100 Ventilator 10/08/21 06:00 68 12 150/60 (90) 10/08/21 00:01 98.6 98.6 I & O 10/07/21 10/07/21 10/08/21 15:00 23:00 07:00 Intake Total 400 ml 1607 ml 1313 ml Output Total 375 ml 375 ml 370 ml Balance 25 ml 1232 ml 943 ml Physical Exam General: Other (Intubated sedated) Heart: Regular rate Lungs: Clear Abdomen: Normal bowel sounds Extremities: No clubbing, No cyanosis, No edema, Normal pulses, No tenderness/swelling Skin: Other (Extensive bruising to anterior chest wall) Labs Labs: Laboratory Tests Test 10/07/21 08:25 10/07/21 09:00 10/08/21 04:15 O2 Saturation 99 % (92-99) Arterial Blood pH 7.49 (7.35-7.45) Arterial Blood pCO2 at Patient Temp 32 mmHg (35-46) Arterial Blood pO2 at Patient Temp 148 mmHg (65-108) Arterial Blood HCO3 24 mmol/L (21-28) Arterial Blood Base Excess 1 mmol/L (-3-3) FiO2 35 Sodium Level 146 mmol/L (136-145) 142 mmol/L (136-145) Potassium Level 3.8 mmol/L (3.5-5.1) 3.7 mmol/L (3.5-5.1) Chloride Level 112 mmol/L (98-107) 108 mmol/L (98-107) Carbon Dioxide Level 29 mmol/L (21-32) 26 mmol/L (21-32) Anion Gap 5 (6-14) 8 (6-14) Blood Urea Nitrogen 27 mg/dL (8-26) 26 mg/dL (8-26) Creatinine 0.7 mg/dL (0.7-1.3) 0.7 mg/dL (0.7-1.3) Estimated GFR (Cockcroft-Gault) 106.9 106.9 Glucose Level 124 mg/dL (70-99) 108 mg/dL (70-99) Calcium Level 8.1 mg/dL (8.5-10.1) 7.8 mg/dL (8.5-10.1) Comment Review of Relevant I have reviewed the following items ivania (where applicable) has been applied. Justifications for Admission Chest Pain Indications Respiratory Distress?: Yes Justification for admission: Patient's respiratory distress as indicated by (SOB/tachypnea/abnormal breathing pattern plus hypoxemia/AMS/other evidence of respiratory compromise such as pulmonary edema on chest x-ray) will need inpatient level of care. Serious Diagnosis?: Yes Justification for admission: Chest pain may be indicative of potentially serious diagnosis/diagnoses Please state condition(s) which will require inpatient level of care for further evaluation and management. Other Justification TERESA CASTRO MD Oct 08, 2021 08:02
--- NOTE | 2021-10-08 08:20 | PDOC ---
PULMONARY PROGRESS NOTES DATE: 10/08/21 TIME: 08:16 Subjective on vent peep 5 fio2 35% off sedation since 09/26 no response mod ett secretion Vitals Vital Signs Date Time Temp Pulse Resp B/P (MAP) Pulse Ox O2 Delivery O2 Flow Rate FiO2 10/08/21 07:02 100 Ventilator 10/08/21 06:00 68 12 150/60 (90) 10/08/21 00:01 98.6 98.6 Comments ros unable to obtain on vent not following commands HEENT: Other (nc at orally intubated nose clear neck no lad no thyromeg judith) Lungs: Clear Cardiovascular: S1, S2 Abdomen: Soft Neuro Exam: Alert Extremities: Other (Some edema) Skin: Warm Labs Laboratory Tests Test 10/07/21 08:25 10/07/21 09:00 10/08/21 04:15 O2 Saturation 99 % (92-99) Arterial Blood pH 7.49 (7.35-7.45) Arterial Blood pCO2 at Patient Temp 32 mmHg (35-46) Arterial Blood pO2 at Patient Temp 148 mmHg (65-108) Arterial Blood HCO3 24 mmol/L (21-28) Arterial Blood Base Excess 1 mmol/L (-3-3) FiO2 35 Sodium Level 146 mmol/L (136-145) 142 mmol/L (136-145) Potassium Level 3.8 mmol/L (3.5-5.1) 3.7 mmol/L (3.5-5.1) Chloride Level 112 mmol/L (98-107) 108 mmol/L (98-107) Carbon Dioxide Level 29 mmol/L (21-32) 26 mmol/L (21-32) Anion Gap 5 (6-14) 8 (6-14) Blood Urea Nitrogen 27 mg/dL (8-26) 26 mg/dL (8-26) Creatinine 0.7 mg/dL (0.7-1.3) 0.7 mg/dL (0.7-1.3) Estimated GFR (Cockcroft-Gault) 106.9 106.9 Glucose Level 124 mg/dL (70-99) 108 mg/dL (70-99) Calcium Level 8.1 mg/dL (8.5-10.1) 7.8 mg/dL (8.5-10.1) Laboratory Tests Test 10/07/21 08:25 10/07/21 09:00 10/08/21 04:15 O2 Saturation 99 % (92-99) Arterial Blood pH 7.49 (7.35-7.45) Arterial Blood pCO2 at Patient Temp 32 mmHg (35-46) Arterial Blood pO2 at Patient Temp 148 mmHg (65-108) Arterial Blood HCO3 24 mmol/L (21-28) Arterial Blood Base Excess 1 mmol/L (-3-3) FiO2 35 Sodium Level 146 mmol/L (136-145) 142 mmol/L (136-145) Potassium Level 3.8 mmol/L (3.5-5.1) 3.7 mmol/L (3.5-5.1) Chloride Level 112 mmol/L (98-107) 108 mmol/L (98-107) Carbon Dioxide Level 29 mmol/L (21-32) 26 mmol/L (21-32) Anion Gap 5 (6-14) 8 (6-14) Blood Urea Nitrogen 27 mg/dL (8-26) 26 mg/dL (8-26) Creatinine 0.7 mg/dL (0.7-1.3) 0.7 mg/dL (0.7-1.3) Estimated GFR (Cockcroft-Gault) 106.9 106.9 Glucose Level 124 mg/dL (70-99) 108 mg/dL (70-99) Calcium Level 8.1 mg/dL (8.5-10.1) 7.8 mg/dL (8.5-10.1) Medications Active Scripts Medications Dose Route/Sig Max Daily Dose Days Date Category Dose Instructions Urea 227 Gm Cream..g. 1 Tata TP DAILY 30 09/23/21 Reported Crestor (Rosuvastatin Calcium) 40 Mg Tablet 1 Tab PO DAILY 09/23/21 Reported Namenda (Memantine Hcl) 10 Mg Tablet 1 Tab PO BID 09/23/21 Reported Pantoprazole Sodium (Pantoprazole Sodium) 40 Mg Tablet.dr 40 Mg PO DAILYAC 09/23/21 Reported Lisinopril 40 Mg Tablet 0.5 Tab PO DAILY 09/23/21 Reported Levothyroxine Sodium 50 Mcg Tablet 1 Tab PO DAILY 09/23/21 Reported Xolegel (Ketoconazole) 45 Gm Gel..gram. 1 Tata TP BID 30 09/23/21 Reported Isosorbide Mononitrate Er (Isosorbide Mononitrate) 60 Mg Tab.er.24h 1 Tab PO DAILY 09/23/21 Reported Hydrophor Ointment (Mineral Oil/Hydrophil Petrolat) 454 Gm Oint...g. 454 Gm TP PRN PRN 09/23/21 Reported Zetia (Ezetimibe) 10 Mg Tablet 1 Tab PO DAILY 30 09/23/21 Reported Donepezil Hcl 10 Mg Tablet 1 Tab PO DAILY 09/23/21 Reported Clopidogrel (Clopidogrel Bisulfate) 75 Mg Tablet 75 Mg PO DAILY 09/23/21 Reported Celexa (Citalopram Hydrobromide) 40 Mg Tablet 1 Tab PO DAILY 09/23/21 Reported Vitamin D3 (Vitamin D) 25 Mcg Tablet 25 Mcg PO DAILY 09/23/21 Reported 1,000 UNITS = 25 MCG Thera Tears (Carboxymethylcellulose Sodium) 15 Ml Drops 1 Drop EACHEYE QID 09/23/21 Reported Atenolol 25 Mg Tablet 1 Tab PO DAILY 09/23/21 Reported Amlodipine Besylate 5 Mg Tablet 5 Mg PO DAILY 09/23/21 Reported Comments cxr reviewed 09/28 Resolved previously seen diffuse interstitial infiltrates secondary to CHF Impression . IMPRESSION: 1. Acute hypoxemic respiratory failure secondary to complete heart block. 2. 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 3. Acute kidney injury. 4. Elevated liver chemistries. 5. Non-ST segment elevation myocardial infarction. 6. Severe protein malnutrition, present upon admission. 7. Respiratory alkalosis. Minute ventilation adjust 8. Patient does assist ventilator, brainstem function intact 9. Possible seizures 10. Anoxic brain injury Plan . Updated 10/08 Discussed with RN and Dr. Vargas. Patient has been off sedation since 09/26. 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 He has intact brainstem reflexes but likely has anoxic brain injury. I would recommend another meeting with the patient's family regarding comfort care. Have talked to Dr. Vargas and he will be reaching out to the family re garding goals of care cont vent support setting reviewed, off sedation since 09/26 elevate hob Continue current support abx pepcid scds for prophylaxis discussed w rn addend: d/w son in law. will arrange family meeting for tomorrow. Updated 10/07 Discussed with RN and Dr. Vargas. Patient has been off sedation since 09/26. 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 He has intact brainstem reflexes but likely has anoxic brain injury. I would recommend another meeting with the patient's family regarding comfort care. Have talked to Dr. Vargas and he will be reaching out to the family regarding goals of care cont vent support setting reviewed, off sedation since 09/26 elevate hob Continue current support abx pepcid scds for prophylaxis discussed w rn Updated 10/06 Discussed with RN and Dr. Vargas. Patient has been off sedation since 09/26. 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 He has intact brainstem reflexes but likely has anoxic brain injury. I would recommend another meeting with the patient's family regarding comfort care. cont vent support setting reviewed, off sedation since 09/26 elevate hob Continue current support abx pepcid scds for prophylaxis discussed w rn Updated 10/05 cont vent support setting reviewed, sbt when awake off sedation since 09/26 elevate hob Continue current support abx pepcid scds for prophylaxis discussed w rn Updated 10/04 cont vent support setting reviewed, sbt when awake elevate hob Continue current support abx pepcid scds for prophylaxis Patient and family wishes to wait a couple more days before final decision Updated 10/03 Continue current support Patient and family wishes to wait a couple more days before final decision 10/02 nasal 9 discussed with dry can tender meeting later today with Dr. Flood I would recommend discontinuing support allow natural GAGE CALLAHAN MD Oct 08, 2021 08:20
--- NOTE | 2021-10-08 10:24 | PDOC ---
EMIR TERRELL R[employer] CLEANER 10/08/21 1024: CARDIO Progress Notes Date and Time Date of Service 10/08/2021 Time of Evaluation 1015 Subjective Subjective: Other (intubated ) Vitals Vitals Vital Signs Date Time Temp Pulse Resp B/P (MAP) Pulse Ox O2 Delivery O2 Flow Rate FiO2 10/08/21 09:22 100 Ventilator 10/08/21 06:00 68 12 150/60 (90) 10/08/21 00:01 98.6 98.6 Weight Weight [ ] Input and Output Intake and Output Intake and Output 10/08/21 07:00 Intake Total 3320 ml Output Total 1120 ml Balance 2200 ml IV Total 203 ml Tube Feeding 2117 ml Other 1000 ml Output Urine Total 1120 ml Laboratory Labs Laboratory Tests Test 10/08/21 04:15 Sodium Level 142 mmol/L (136-145) Potassium Level 3.7 mmol/L (3.5-5.1) Chloride Level 108 mmol/L (98-107) Carbon Dioxide Level 26 mmol/L (21-32) Anion Gap 8 (6-14) Blood Urea Nitrogen 26 mg/dL (8-26) Creatinine 0.7 mg/dL (0.7-1.3) Estimated GFR (Cockcroft-Gault) 106.9 Glucose Level 108 mg/dL (70-99) Calcium Level 7.8 mg/dL (8.5-10.1) Physical Exam HEENT: Neck Supple W Full Motion Chest: Symmetric LUNGS: Other (mechanical vent ) Heart: RRR (AV paced), other (distant heart tones ) Abdomen: Other (soft ) Extremities: No Edema Neurology: other (off sedation, minimally responsive to tactile stimuli, posturing ) Assessment Assessment 1. Cardiac arrest due to pacemaker battery depletion 2. SSS s/p PPM. s/p generator change AV pacing 3. NSTEMI - type 2. 4. Cardiomyopathy; echo with LVEF 45% 5. EDWIN: much improved 6. Cardiogenic shock: BP better 7. Acute respiratory failure due to #1: remains intubated with vent 8. Probable aspiration PNA 9. Elevated LFTs, shock liver; improving 10. Anoxic Encephalopathy: minimal response to tactile stimulation. no progress 11 . Hypokalemia, hypernatremia: resolved Recommendations Continue vent management per pulmonary team Poor prognosis, supportive care. Still awaiting family meeting to readdress goals of care, Consider comfort care Justicifation of Admission Dx: Justifications for Admission: Justification of Admission Dx: N/A DENIS CHEUNG MD 10/08/212052: CARDIO Progress Notes Plan Plan Pt. seen and examined. Agree with above [employer] note. Supportive care. Await family decision. EMIR TERRELL APRN Oct 08, 2021 10:24 DENIS CHEUNG MD Oct 08, 2021 20:53
--- NOTE | 2021-10-08 11:03 | NUR ---
SS following up with discharge planning. SS reviewed pt chart and discussed with pt RN. Pt is currently on the vent at 35%. Pt on IV Keppra. No sedation. COVID19 negative. Physician discussed goals of care with family. Pt's family not wanting any surgical interventions at this time and does not want to withdraw care at this time. SS spoke with RN, Maribell, and physician and discussed LTACH referral. SS phoned and faxed referral to [facility], ; fax [phone]. SS will continue to follow for discharge planning. Addendum: 10/08/21 at 1432 by ORTEGA WHIPPLE SS SS received phone contact from [facility] stating that they cannot accept pt due to prognosis and concerns with lack of brain activity.
[2021-10-08] MEDS: levETIRAcetam 500 MG in IV DEXTROSE 5% 100ML 100 ML IV SCH ×2 (11:31→21:13)
[2021-10-08] MEDS: FAMOTIDINE 20 MG/2 ML VIAL IVP SCH ×2 (11:31→21:12)
[2021-10-09] VITALS (24 sets, daily range): BP systolic 109–149; BP diastolic 47–69
[2021-10-09 05:06] LABS: CALCIUM 7.7 mg/dL (8.5-10.1); CREATININE 0.6 mg/dL (0.7-1.3); GFR 127.7; POTASSIUM 3.7 mmol/L (3.5-5.1)
--- NOTE | 2021-10-09 08:06 | PDOC ---
[employer] PROGRESS NOTE Date of Service DOS: DATE: 10/09/21 TIME: 08:05 Chief Complaint Chief Complaint A/P: Acute hypoxic respiratory failure - likely due to aspiration pneumonia from vomiting likely from symptomatic 3rd degree heart block. Will cont vent, wean O2 as tolerated. Unasyn for aspiration pneumonia coverage. Consult pulmonology for vent management assistance PEA arrest - likely from above aspiration event, complicated by 3rd degree heart block. ROSC obtained Third degree heart block - s/p PPM generator change with apparent recovery of heart rate. Cont dopamine. ICU admission Abnormal chest CT - likely due to due to pneumonia Nausea and vomiting - likely from CHB, will treat for pneumonia, will rule out other infectious etiology. IV anti-emetics Fall - second fall in a week. If neurologic recovery occurs needs gait testing, though likely this was related to cardiac event Closed head injury - posterior scalp abrasion, local wound care. Monitor neurologic function. Anemia - will check iron studies, likely of chronic disease Thrombocytopenia - unclear etiology, will trend EDWIN - likely vasomotor nephropathy from arrest. Family does not know of any history of CKD, will order [facility] records Lactic acidosis - likely due to hypoxia, will trend Transaminitis - likely related to shock liver, will monitor Elevated trop - demand ischemia from 3rd degree heart block, likely, will trend out. HTN - will add back home meds as BP allows HLD - statin when taking PO FEN - NPO. NGT feed Vital AF @ 40 ml/hr and free water flushes 200 ml q 6 PPX - pepcid, lovenox CODE - partial - no chest compressions Dispo - ICU. Patient family arrived next 24 hours to discuss ongoing plan. Addendum: I have discussed with bryn Painting and Seng Felix about overall goals of care and they have requested to "wait another week". Have advised him of the potential risks of ventilator associated pneumonia bedsores and other potential infections and have recommended after 14 days on the ventilator to consider tracheostomy and feeding tube if they want to continue care also offered palliative care and hospice care they are still precontemplative and do not want to move forward with any surgical procedures. They have made it clear if he does have a cardiac arrest he would not like chest compressions and would not like to be on the ventilator for "a year History of Present Illness History of Present Illness Mr Cerda is an 86-year-old male with PMHx HTN, HLD s/p PPM who presented to [place] [facility] in [place] via EMS after a PEA cardiac arrest. Per his son, he was at home and in the presence of son and son-in-law when he was observed actively choking and subsequently falling on the floor with significant amount of emesis that was nonbloody and nonbilious in nature. Son reports vomit with recently ingested food and laying his father on his side and cleaning out his mouth while son-in-law called EMS. On EMS arrival ~3 minutes later, patient was unresponsive and cyanotic and they intubated. En-route patient was found to be pulseless in PEA and appropriate ACLS measures were followed with application of Howard device for chest compressions, and per report had a total of x2 epinephrine administered via left tibial IO. After approximately 5 minutes ROSC was obtained. In ED was noted unresponsive with pinpoint pupils and GCS 3 with no purposeful movements. Per EMS report and son the patient takes Plavix, lisinopril, rosuvastatin and citalopram at home. He has a pacemaker per son, which was placed in [place] over 10 years ago, and the son says he follows at [facility], doesn't know about pacer follow up. Per son he fell 4 days prior and [facility], noted on his occiput. Family notes he has been more weak than usual over past 72 hours, no travel or sick contacts. Is fully vaccinated against COVID 19. EKG appeared with third-degree heart block at 42 bpm, left axis deviation, T wave inversion noted in lead I, III, V2-6, no STEMI Vitals obtained concerning for marked bradycardia and no respiratory effort Labs with WBC 9.1, Hb 11.4, platelets 128, ABG 7.2 7/42/459 on 100% FiO2, rapid COVID-19 negative, NA 137, K4.2, BUN 50, CR 2, glucose 247, lactic acid 8.6, calcium 8.6, bilirubin 0.6, AST 131, ALT 157, alkaline phosphatase 90, ammonia 25, albumin 3, troponin 0.134, INR 1.1, urinalysis bland. CT head and neck with no acute abnormalities. CT chest with bibasilar infiltrates and NGT and ETT in good positioning. library monitor concerning for third-degree heart block, with rate in the 20s, therefore 1 mg epinephrine administered with minimal improvement in HR, then 1 mg atropine without significant improvement, then dopamine gtt without sustained improvement. 3 L IV fluid administered and unasyn for aspiration pneumonitis. Ultimately was responsive to transcutaneous pacing and after discussion with cardiology he was transferred to [facility] for further care. To laboratory geneticist prior to my assessment, had pacemaker generator replaced emergently. Seen in ICU. Discussed with son bedside. 09/23: Afebrile, on vent with FiO2 50%, PEEP 5. Continue dopamine gtt. We will continue Unasyn for aspiration pneumonia. Chest x-ray showed suspected partially consolidated left lower lobe infiltrate superimposed on right lower and bilateral upper lobe multifocal interstitial infiltrate.. Critical care time 30 minutes spent reviewing charts, general labs, reviewing imaging, and discussion with RN. 09/24: Afebrile. On vent with FiO2 40%, PEEP 5. Remains on pressor support. Off dopamine. Will continue Unasyn for pneumonia. Continue to wean off vent. Critical care time 30 minutes spent reviewing charts, general labs, reviewing imaging, discussion with Dr. Mcdaniel. 09/25: Low-grade fever overnight, T-max 100.6 F. On vent with FiO2 35%, PEEP 5. Chest x-ray yesterday showed diffuse increased interstitial opacity likely due to interstitial infiltrate. Continue IV antibiotics. He has been off sedation for the past 24 hours. Platelets have steadily dropped; platelets 89 today. I discussion with daughter and son-in-law by phone about concerns for worsening bruising and, cytopenia. They are agreeable to no chest compressions, as to not cause any further damage that may lead to prolonged intubation. We will continue to wean off ventilator. 30 minutes critical care time spent reviewing charts, reviewing labs, reviewing imaging, discussion with RN, and discussion with Dr. Ortiz. 09/26: Afebrile. On vent with FiO2 35%, PEEP 5. Chest x-ray today showing stable diffuse interstitial infiltrate. Platelets [address] Brand was consulted yesterday; he is discussed with family the likely poor prognosis. Sister wants to fly in from [place] to see him. Family would like DNR but chemical code; son-in-law will discuss with the rest of family. Critical care time 30 minutes spent reviewing chart, reviewing labs, reviewing imaging, discussing with Dr. Ortiz. 09/27: Afebrile; on vent with FiO2 50%, PEEP 5. Off. For 72 hours. Some spontaneous movements noted this morning. I believe family is flying in from [place] to see him prior to making full DNR; chemical code. Critical care time 30 minutes spent reviewing charts, general labs, reviewing imaging, and discuss ion with RN. 09/28: Febrile overnight, T-max 102.0 F. 09/29: Patient evaluated examined at bedside. Remains off sedation. But still pretty unresponsive. Absent brainstem reflexes. Will attempt to contact family today to see if they are in fact coming in from [place]. Still on Levophed and dopamine. . Critical care time 30 minutes spent reviewing charts, reviewing labs, imaging, discussion with RN. 09/30: Patient evaluated and examined at bedside. Still off sedation and unresponsive. Still on Levophed for blood pressure support. Family supposed to arrive today for discussion of ongoing care. Critical care time 30 minutes spent reviewing charts, reviewing labs, imaging, discussion with RN. 10/01: Patient evaluated and examined at bedside. Still intubated and unresponsive. Requiring pressors. Talk to patient's son on phone today for 15 minutes discussing advanced care planning. He reported that she has not been able to discuss ongoing care with his sister as she works in the afternoons and he works in the evenings. Provided clinical updates to him told him about no real improvement at this point. Still remains on high ventilator settings. Planning to meet with him tomorrow afternoon at bedside for further discussion.Critical care time 30 minutes spent reviewing charts, reviewing labs, imaging, discussion with RN 10/02: Patient evaluated examined at bedside. Still intubated minimally responsive even without sedation. Waiting for son to arrive at bedside for care discussion. Otherwise continuing current plans. I spent 35 minutes critical care time reviewing charts labs imaging and discussion with subspecialist and nursing team. 10/03: Patient evaluated examined at bedside. I discussed with the family yesterday for approximately 35 minutes ongoing care plans. During that time patient did have some extremity movement along with some head movement showing discomfort from the ventilator. With this family would like to continue care for now. I spoke with them again at bedside today and that they would like to continue on until at least tomorrow evening. Still think very poor prognosis. However will honor family wishes. Plan of care discussed with bedside RN. I spent 35 minutes critical care time reviewing charts labs imaging and discussion with specialists and nursing team 10/04: Late entry for October 04. Patient evaluated at bedside. Still with some movements in his extremities. Still intubated minimally responsive despite being off sedation for over a week. Continue discussion of goals with family. 35 minutes critical care time. 10/05: Patient evaluated examined at bedside. Hyponatremic this morning on review does appear his sodium has been creeping up. We will increase free water flushes. Family continues discussing goals of care. Here to provide them any information needed. 33 minutes critical care time 10/06: Overnight no events. NA 149, K3.4, Hb 9.5. No meaningful movement off sedation over a week. 10/07: Overnight afebrile. Withdraws from pain requiring great toe reflex is breathing over the ventilator. Brainstem reflexes intact seems to be anoxic brain injury. discussed with family over the phone the asked for an additional week. I encouraged consideration of comfort care offered tracheostomy and PEG a do not want surgical interventions at this time 10/08: NA 142 today. On vent 35% FiO2 PEEP of 5 O2 saturations 100%. Has doll's eyes no meaningful movement does withdraw from painful stimuli. Babinski bilaterally. Afebrile Afebrile overnight. On vent 35% FiO2 PEEP 5 with O2 saturations 96%. Still with nausea movement today withdrawal from painful stimuli Babinski bilaterally. I left voicemail for family per nursing they are going to have a meeting at 9 AM I will attempt to call during their meeting. CC time 30 min Vitals/I&O Vitals/I&O: Vital Signs Date Time Temp Pulse Resp B/P (MAP) Pulse Ox O2 Delivery O2 Flow Rate FiO2 10/09/21 07:03 100 Ventilator 10/09/21 06:00 69 12 142/61 (88) 10/09/21 04:00 98.8 98.8 I & O 10/08/21 10/08/21 10/09/21 14:59 22:59 06:59 Intake Total 400 ml 1036 ml 800 ml Output Total 435 ml 425 ml 375 ml Balance -35 ml 611 ml 425 ml Physical Exam General: Other (Intubated sedated) Heart: Regular rate Lungs: Clear Abdomen: Normal bowel sounds Extremities: No clubbing, No cyanosis, No edema, Normal pulses, No tenderness/swelling Skin: Other (Extensive bruising to anterior chest wall) Labs Labs: Laboratory Tests Test 10/09/21 04:00 Sodium Level 139 mmol/L (136-145) Potassium Level 3.7 mmol/L (3.5-5.1) Chloride Level 107 mmol/L (98-107) Carbon Dioxide Level 25 mmol/L (21-32) Anion Gap 7 (6-14) Blood Urea Nitrogen 24 mg/dL (8-26) Creatinine 0.6 mg/dL (0.7-1.3) Estimated GFR (Cockcroft-Gault) 127.7 Glucose Level 109 mg/dL (70-99) Calcium Level 7.7 mg/dL (8.5-10.1) Comment Review of Relevant I have reviewed the following items ivania (where applicable) has been applied. Justifications for Admission Chest Pain Indications Respiratory Distress?: Yes Justification for admission: Patient's respiratory distress as indicated by (SOB/tachypnea/abnormal breathing pattern plus hypoxemia/AMS/other evidence of respiratory compromise such as pulmonary edema on chest x-ray) will need inpatient level of care. Serious Diagnosis?: Yes Justification for admission: Chest pain may be indicative of potentially serious diagnosis/diagnoses Please state condition(s) which will require inpatient level of care for further evaluation and management. Other Justification TERESA CASTRO MD Oct 09, 2021 08:06
[2021-10-09] MEDS: FAMOTIDINE 20 MG/2 ML VIAL IVP SCH ×2 (08:43→20:40)
[2021-10-09] MEDS: levETIRAcetam 500 MG in IV DEXTROSE 5% 100ML 100 ML IV SCH ×2 (08:43→20:42)
--- NOTE | 2021-10-09 09:24 | PDOC ---
EMIR TERRELL SURFBOARD DESIGNER 10/09/21 0923: CARDIO Progress Notes Date and Time Date of Service 10/09/2021 Time of Evaluation 0915 Subjective Subjective: Other (intubated ) Vitals Vitals Vital Signs Date Time Temp Pulse Resp B/P (MAP) Pulse Ox O2 Delivery O2 Flow Rate FiO2 10/09/21 07:03 100 Ventilator 10/09/21 06:00 69 12 142/61 (88) 10/09/21 04:00 98.8 98.8 Weight Weight [ ] Input and Output Intake and Output Intake and Output 10/09/21 07:00 Intake Total 2236 ml Output Total 1235 ml Balance 1001 ml Intake Oral 200 ml IV Total 105 ml Tube Feeding 1531 ml Other 400 ml Output Urine Total 1235 ml Laboratory Labs Laboratory Tests Test 10/09/21 04:00 Sodium Level 139 mmol/L (136-145) Potassium Level 3.7 mmol/L (3.5-5.1) Chloride Level 107 mmol/L (98-107) Carbon Dioxide Level 25 mmol/L (21-32) Anion Gap 7 (6-14) Blood Urea Nitrogen 24 mg/dL (8-26) Creatinine 0.6 mg/dL (0.7-1.3) Estimated GFR (Cockcroft-Gault) 127.7 Glucose Level 109 mg/dL (70-99) Calcium Level 7.7 mg/dL (8.5-10.1) Physical Exam HEENT: Neck Supple W Full Motion Chest: Symmetric LUNGS: Other (mechanical vent ) Heart: RRR (AV paced), other (distant heart tones ) Abdomen: Other (soft ) Extremities: No Edema Neurology: other (off sedation, minimally responsive to tactile stimuli, posturing ) Assessment Assessment 1. Cardiac arrest due to pacemaker battery depletion 2. SSS s/p PPM. s/p generator change AV pacing 3. NSTEMI - type 2. 4. Cardiomyopathy; echo with LVEF 45% 5. EDWIN: much improved 6. Cardiogenic shock: BP better 7. Acute respiratory failure due to #1: remains intubated with vent 8. Probable aspiration PNA 9. Elevated LFTs, shock liver; improving 10. Anoxic Encephalopathy: minimal response to tactile stimulation. no progress 11 . Hypokalemia, hypernatremia: resolved Recommendations Continue vent management per pulmonary team Poor prognosis, supportive care. Consider comfort care. Discussed with son and daughter Justicifation of Admission Dx: Justifications for Admission: Justification of Admission Dx: N/A DENIS CHEUNG MD 10/09/21 1113: CARDIO Progress Notes Plan Plan Pt. seen and examined. Agree with above SENIOR SAFETY SUPPORT MANAGER note. Supportive care. Consider hospice services. EMIR TERRELL APRN Oct 09, 2021 09:23 DENIS CHEUNG MD Oct 09, 2021 11:13
--- NOTE | 2021-10-09 10:38 | PDOC ---
PULMONARY PROGRESS NOTES DATE: 10/09/21 TIME: 10:35 Subjective on vent peep 5 fio2 35% off sedation since 09/26 no response mod ett secretion Vitals Vital Signs Date Time Temp Pulse Resp B/P (MAP) Pulse Ox O2 Delivery O2 Flow Rate FiO2 10/09/21 09:20 100 Ventilator 10/09/21 09:00 72 12 148/58 (88) 10/09/21 08:00 98.9 98.9 Comments ros unable to obtain on vent not following commands HEENT: Other (nc at orally intubated nose clear neck no lad no thyromeg judith) Lungs: Clear Cardiovascular: S1, S2 Abdomen: Soft Neuro Exam: Alert Extremities: Other (Some edema) Skin: Warm Labs Laboratory Tests Test 10/08/21 04:15 10/09/21 04:00 Sodium Level 142 mmol/L (136-145) 139 mmol/L (136-145) Potassium Level 3.7 mmol/L (3.5-5.1) 3.7 mmol/L (3.5-5.1) Chloride Level 108 mmol/L (98-107) 107 mmol/L (98-107) Carbon Dioxide Level 26 mmol/L (21-32) 25 mmol/L (21-32) Anion Gap 8 (6-14) 7 (6-14) Blood Urea Nitrogen 26 mg/dL (8-26) 24 mg/dL (8-26) Creatinine 0.7 mg/dL (0.7-1.3) 0.6 mg/dL (0.7-1.3) Estimated GFR (Cockcroft-Gault) 106.9 127.7 Glucose Level 108 mg/dL (70-99) 109 mg/dL (70-99) Calcium Level 7.8 mg/dL (8.5-10.1) 7.7 mg/dL (8.5-10.1) Laboratory Tests Test 10/09/21 04:00 Sodium Level 139 mmol/L (136-145) Potassium Level 3.7 mmol/L (3.5-5.1) Chloride Level 107 mmol/L (98-107) Carbon Dioxide Level 25 mmol/L (21-32) Anion Gap 7 (6-14) Blood Urea Nitrogen 24 mg/dL (8-26) Creatinine 0.6 mg/dL (0.7-1.3) Estimated GFR (Cockcroft-Gault) 127.7 Glucose Level 109 mg/dL (70-99) Calcium Level 7.7 mg/dL (8.5-10.1) Medications Active Scripts Medications Dose Route/Sig Max Daily Dose Days Date Category Dose Instructions Urea 227 Gm Cream..g. 1 Tata TP DAILY 30 09/23/21 Reported Crestor (Rosuvastatin Calcium) 40 Mg Tablet 1 Tab PO DAILY 09/23/21 Reported Namenda (Memantine Hcl) 10 Mg Tablet 1 Tab PO BID 09/23/21 Reported Pantoprazole Sodium (Pantoprazole Sodium) 40 Mg Tablet.dr 40 Mg PO DAILYAC 09/23/21 Reported Lisinopril 40 Mg Tablet 0.5 Tab PO DAILY 09/23/21 Reported Levothyroxine Sodium 50 Mcg Tablet 1 Tab PO DAILY 09/23/21 Reported Xolegel (Ketoconazole) 45 Gm Gel..gram. 1 Tata TP BID 30 09/23/21 Reported Isosorbide Mononitrate Er (Isosorbide Mononitrate) 60 Mg Tab.er.24h 1 Tab PO DAILY 09/23/21 Reported Hydrophor Ointment (Mineral Oil/Hydrophil Petrolat) 454 Gm Oint...g. 454 Gm TP PRN PRN 09/23/21 Reported Zetia (Ezetimibe) 10 Mg Tablet 1 Tab PO DAILY 30 09/23/21 Reported Donepezil Hcl 10 Mg Tablet 1 Tab PO DAILY 09/23/21 Reported Clopidogrel (Clopidogrel Bisulfate) 75 Mg Tablet 75 Mg PO DAILY 09/23/21 Reported Celexa (Citalopram Hydrobromide) 40 Mg Tablet 1 Tab PO DAILY 09/23/21 Reported Vitamin D3 (Vitamin D) 25 Mcg Tablet 25 Mcg PO DAILY 09/23/21 Reported 1,000 UNITS = 25 MCG Thera Tears (Carboxymethylcellulose Sodium) 15 Ml Drops 1 Drop EACHEYE QID 09/23/21 Reported Atenolol 25 Mg Tablet 1 Tab PO DAILY 09/23/21 Reported Amlodipine Besylate 5 Mg Tablet 5 Mg PO DAILY 09/23/21 Reported Comments cxr reviewed 09/28 Resolved previously seen diffuse interstitial infiltrates secondary to CHF Impression . IMPRESSION: 1. Acute hypoxemic respiratory failure secondary to complete heart block. 2. 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 3. Acute kidney injury. 4. Elevated liver chemistries. 5. Non-ST segment elevation myocardial infarction. 6. Severe protein malnutrition, present upon admission. 7. Respiratory alkalosis. Minute ventilation adjust 8. Patient does assist ventilator, brainstem function intact 9. Possible seizures 10. Anoxic brain injury Plan . Updated 10/09/21 Discussed with RN and Dr. Vargas. Patient has been off sedation since 09/26. 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 He has intact brainstem reflexes but has anoxic brain injury. cont vent support setting reviewed, off sedation since 09/26 elevate hob Continue current support abx pepcid scds for prophylaxis discussed w furniture sales associate meeting; I had a long discussion with patient's family including daughter and son at the bedside. I explained to them patient's grim prognosis and likely anoxic encephalopathy. Patient has been off sedation since August 2029. He only triggers the ventilator but does not follow any commands. I have discussed with the patient's family regarding the goals of care. I have recommended that we should allow natural . Patient's family agrees. They do not want to consider tracheostomy or PEG tube placement. They have requested that patient's another daughter is coming from [place] this Wednesday. They would like to wait till she arrives here and like to proceed with withdrawal of care on Wednesday. I concur with that. They understand that patient will not survive after extubation.They are focussed in keeping him comfortable post extubation. Patient will be DNR post extubation. Total critical care time 30 minutes Updated 10/08 Discussed with RN and Dr. Vargas. Patient has been off sedation since 09/26. 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 He has intact brainstem reflexes but likely has anoxic brain injury. I would recommend another meeting with the patient's family regarding comfort care. Have talked to Dr. Vargas and he will be reaching out to the family regarding goals of care cont vent support setting reviewed, off sedation since 09/26 elevate hob Continue current support abx pepcid scds for prophylaxis discussed w rn addend: d/w son in law. will arrange family meeting for tomorrow. Updated 10/07 Discussed with RN and Dr. Vargas. Patient has been off sedation since 09/26. 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 He has intact brainstem reflexes but likely has anoxic brain injury. I would recommend another meeting with the patient's family regarding comfort care. Have talked to Dr. Vargas and he will be reaching out to the family regarding goals of care cont vent support setting reviewed, off sedation since 09/26 elevate hob Continue current support abx pepcid scds for prophylaxis discussed w rn Updated 10/06 Discussed with RN and Dr. Vargas. Patient has been off sedation since 09/26. 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 He has intact brainstem reflexes but likely has anoxic brain injury. I would recommend another meeting with the patient's family regarding comfort care. cont vent support setting reviewed, off sedation since 09/26 elevate hob Continue current support abx pepcid scds for prophylaxis discussed w rn Updated 10/05 cont vent support setting reviewed, sbt when awake off sedation since 09/26 elevate hob Continue current support abx pepcid scds for prophylaxis discussed w rn Updated 10/04 cont vent support setting reviewed, sbt when awake elevate hob Continue current support abx pepcid scds for prophylaxis Patient and family wishes to wait a couple more days before final decision Updated 10/03 Continue current support Patient and family wishes to wait a couple more days before final decision 10/02 nasal 9 discussed with roll tender meeting later today with Dr. Flood I would recommend discontinuing support allow natural GAGE CALLAHAN MD Oct 09, 2021 10:38
--- NOTE | 2021-10-09 11:22 | PDOC ---
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 CN: no focal findings. Muscle tone: normal. Muscle strength: Slight withdrawal to pain on the right DTR: 1+ Plantar reflex: Silent Gait: not examined. Sensory exam: Not cooperative. Cerebellar: Not cooperative Review of Relevant I have reviewed the following items ivania (where applicable) has been applied. Labs Laboratory Tests Test 10/08/21 04:15 10/09/21 04:00 Sodium Level 142 mmol/L (136-145) 139 mmol/L (136-145) Potassium Level 3.7 mmol/L (3.5-5.1) 3.7 mmol/L (3.5-5.1) Chloride Level 108 mmol/L (98-107) 107 mmol/L (98-107) Carbon Dioxide Level 26 mmol/L (21-32) 25 mmol/L (21-32) Anion Gap 8 (6-14) 7 (6-14) Blood Urea Nitrogen 26 mg/dL (8-26) 24 mg/dL (8-26) Creatinine 0.7 mg/dL (0.7-1.3) 0.6 mg/dL (0.7-1.3) Estimated GFR (Cockcroft-Gault) 106.9 127.7 Glucose Level 108 mg/dL (70-99) 109 mg/dL (70-99) Calcium Level 7.8 mg/dL (8.5-10.1) 7.7 mg/dL (8.5-10.1) Laboratory Tests Test 10/09/21 04:00 Sodium Level 139 mmol/L (136-145) Potassium Level 3.7 mmol/L (3.5-5.1) Chloride Level 107 mmol/L (98-107) Carbon Dioxide Level 25 mmol/L (21-32) Anion Gap 7 (6-14) Blood Urea Nitrogen 24 mg/dL (8-26) Creatinine 0.6 mg/dL (0.7-1.3) Estimated GFR (Cockcroft-Gault) 127.7 Glucose Level 109 mg/dL (70-99) Calcium Level 7.7 mg/dL (8.5-10.1) Medications Current Medications Fentanyl Citrate 30 ml @ 2.5 mls/hr CONT PRN IV SEE PROTOCOL Last administered on 09/24/21at 04:21; Start 09/22/21 at 18:00; Stop 10/06/21 at 08:56; Status DC Midazolam HCl 100 ml @ 1 mls/hr CONT PRN IV SEE PROTOCOL Last administered on 09/24/21at 04:21; Start 09/22/21 at 18:00; Stop 10/06/21 at 08:56; Status DC Propofol 100 ml @ 2.244 mls/ hr CONT PRN IV PER PROTOCOL Last administered on 09/22/21at 17:39; Start 09/22/21 at 18:00; Stop 10/06/21 at 08:56; Status DC Sodium Chloride 500 ml @ 500 mls/hr 1X PRN PRN IV SEE COMMENTS; Start 09/22/21 at 18:00 Atropine Sulfate (ATROPINE 0.5mg SYRINGE) 0.5 mg PRN Q5MIN PRN IV SEE COMMENTS; Start 09/22/21 at 18:00 Famotidine (Pepcid Vial) 20 mg BID IVP Last administered on 09/22/21at 21:58; Start 09/22/21 at 21:00; Stop 09/23/21 at 08:32; Status DC Midazolam HCl (Versed) 2 mg 1X ONCE IV Last administered on 09/22/21at 18:15; Start 09/22/21 at 18:15; Stop 09/22/21 at 18:16; Status DC Lidocaine/ Epinephrine (LIDOCAINE 2%-EPI 1:100,000 multi-dose) 20 ml 1X ONCE IJ Last administered on 09/22/21at 18:17; Start 09/22/21 at 18:15; Stop 09/22/21 at 18:16; Status DC Cefazolin Sodium (Ancef) 1 gm 1X ONCE IVP Last administered on 09/22/21at 18:15; Start 09/22/21 at 18:15; Stop 09/22/21 at 18:16; Status DC Propofol 100 ml @ 2.244 mls/ hr CONT PRN IV PER PROTOCOL; Start 09/22/21 at 18:15; Status UNV Ondansetron HCl (Zofran) 4 mg PRN Q4HRS PRN IVP NAUSEA/VOMITING; Start 09/22/21 at 18:45 Acetaminophen (Tylenol Supp) 650 mg PRN Q6HRS PRN VA MILD PAIN / TEMP > 100.3'F Last administered on 09/25/21at 00:26; Start 09/22/21 at 18:45 Bisacodyl (Dulcolax Supp) 10 mg PRN DAILY PRN VA CONSTIPATION; Start 09/22/21 at 18:45 Promethazine HCl (Phenergan Supp) 12.5 mg PRN Q6HRS PRN VA NAUSEA/VOMITING; Start 09/22/21 at 18:45 Ampicillin Sodium/ Sulbactam Sodium 3 gm/Sodium Chloride 100 ml @ 200 mls/hr Q6HRS IV Last administered on 09/25/21at 12:21; Start 09/22/21 at 18:45; Stop 09/25/21 at 16:21; Status DC Dopamine HCl/ Dextrose 250 ml @ 28.05 mls/ hr CONT PRN IV SEE I/O RECORD Last administered on 09/23/21at 08:44; Start 09/22/21 at 18:45 Lidocaine/ Epinephrine (LIDOCAINE 2%-EPI 1:100,000 multi-dose) 20 ml STK-MED ONCE .ROUTE ; Start 09/22/21 at 18:53; Stop 09/22/21 at 18:53; Status DC Midazolam HCl (Versed) 2 mg STK-MED ONCE .ROUTE ; Start 09/22/21 at 18:53; Stop 09/22/21 at 18:53; Status DC Cefazolin Sodium (Ancef) 1 gm STK-MED ONCE IVP ; Start 09/22/21 at 18:53; Stop 09/22/21 at 18:53; Status DC Fentanyl Citrate (Fentanyl 2ml Vial) 25 mcg PRN Q3HRS PRN IVP SEVERE PAIN 7-10; Start 09/22/21 at 21:30; Status Cancel Famotidine (Pepcid Vial) 20 mg DAILY IVP Last administered on 10/03/21at 08:56; Start 09/23/21 at 09:00; Stop 10/03/21 at 11:35; Status DC Heparin Sodium (Porcine) (Heparin Sodium) 5,000 unit Q12HR SQ Last administered on 09/23/21at 20:45; Start 09/23/21 at 21:00; Stop 09/23/21 at 22:59; Status DC Norepinephrine Bitartrate 8 mg/ Dextrose 258 ml @ 13.971 mls/ hr CONT PRN IV P ER PROTOCOL Last administered on 09/23/21at 22:14; Start 09/23/21 at 11:45 Ampicillin Sodium/ Sulbactam Sodium 3 gm/Sodium Chloride 100 ml @ 200 mls/hr Q12HR IV Last administered on 09/28/21at 07:52; Start 09/25/21 at 21:00; Stop 09/28/21 at 13:20; Status DC Levetiracetam 500 mg/Dextrose 105 ml @ 420 mls/hr Q12HR IV Last administered on 10/09/21at 08:43; Start 09/26/21 at 04:00 Furosemide (Lasix) 20 mg 1X ONCE IVP Last administered on 09/26/21at 13:15; Start 09/26/21 at 13:15; Stop 09/26/21 at 13:16; Status DC Ampicillin Sodium/ Sulbactam Sodium 3 gm/Sodium Chloride 100 ml @ 200 mls/hr Q6HRS IV Last administered on 10/06/21at 05:59; Start 09/28/21 at 18:00; Stop 10/06/21 at 08:56; Status DC Acetaminophen (Tylenol) 650 mg PRN Q6HRS PRN PEG MILD PAIN / TEMP > 100.3'F Last administered on 09/30/21at 20:52; Start 09/29/21 at 09:45 Famotidine (Pepcid Vial) 20 mg BID IVP Last administered on 10/09/21at 08:43; Start 10/03/21 at 21:00 Active Scripts Active Reported Urea 227 Gm Cream..g. 1 Tata TP DAILY 30 Days Crestor (Rosuvastatin Calcium) 40 Mg Tablet 1 Tab PO DAILY Namenda (Memantine Hcl) 10 Mg Tablet 1 Tab PO BID Pantoprazole Sodium (Pantoprazole Sodium) 40 Mg Tablet.dr 40 Mg PO DAILYAC Lisinopril 40 Mg Tablet 0.5 Tab PO DAILY Levothyroxine Sodium 50 Mcg Tablet 1 Tab PO DAILY Xolegel (Ketoconazole) 45 Gm Gel..gram. 1 Tata TP BID 30 Days Isosorbide Mononitrate Er (Isosorbide Mononitrate) 60 Mg Tab.er.24h 1 Tab PO DAILY Hydrophor Ointment (Mineral Oil/Hydrophil Petrolat) 454 Gm Oint...g. 454 Gm TP PRN PRN Zetia (Ezetimibe) 10 Mg Tablet 1 Tab PO DAILY 30 Days Donepezil Hcl 10 Mg Tablet 1 Tab PO DAILY Clopidogrel (Clopidogrel Bisulfate) 75 Mg Tablet 75 Mg PO DAILY Celexa (Citalopram Hydrobromide) 40 Mg Tablet 1 Tab PO DAILY Vitamin D3 (Vitamin D) 25 Mcg Tablet 25 Mcg PO DAILY 1,000 UNITS = 25 MCG Thera Tears (Carboxymethylcellulose Sodium) 15 Ml Drops 1 Drop EACHEYE QID Atenolol 25 Mg Tablet 1 Tab PO DAILY Amlodipine Besylate 5 Mg Tablet 5 Mg PO DAILY Vitals/I & O Vital Sign - Last 24 Hours 10/08/21 10/08/21 10/08/21 10/08/21 11:23 12:00 12:00 13:00 Temp 98.8 98.8 Pulse 69 69 Resp 15 12 B/P (MAP) 141/62 (88) 125/57 (79) Pulse Ox 100 100 100 O2 Delivery Ventilator Ventilator Mechanical Ventilator Ventilator 10/08/21 10/08/21 10/08/21 10/08/21 13:35 14:00 15:00 15:00 Pulse 69 73 Resp 16 12 B/P (MAP) 140/60 (86) 128/53 (78) Pulse Ox 100 100 100 100 O2 Delivery Ventilator Ventilator Ventilator Ventilator 10/08/21 10/08/21 10/08/2110/08/21 16:00 16:00 17:00 17:05 Temp 98.6 98.6 Pulse 71 70 Resp 12 15 B/P (MAP) 132/55 (80) 134/55 (81) Pulse Ox 100 100 100 O2 Delivery Ventilator Mechanical Ventilator Ventilator Ventilator 10/08/21 10/08/21 10/08/21 10/08/21 18:00 19:00 20:00 20:00 Temp 99.0 99.0 Pulse 69 72 69 Resp 13 14 15 B/P (MAP) 134/55 (81) 121/54 (76) 110/58 (75) Pulse Ox 100 100 100 O2 Delivery Ventilator Ventilator Mechanical Ventilator Ventilator 10/08/21 10/08/21 10/08/21 10/08/21 20:28 21:00 22:00 22:25 Pulse 68 69 Resp 15 16 B/P (MAP) 113/52 (72) 115/62 (79) Pulse Ox 100 100 100 100 O2 Delivery Ventilator Ventilator Ventilator Ventilator 10/08/21 10/08/21 10/09/21 10/09/21 23:00 23:59 00:00 00:38 Temp 98.9 98.9 Pulse 69 69 Resp 14 16 B/P (MAP) 119/79 (92) 114/68 (83) Pulse Ox 100 100 100 O2 Delivery Ventilator Mechanical Ventilator Ventilator Ventilator 10/09/21 10/09/21 10/09/21 10/09/21 01:00 02:00 02:36 03:00 Pulse 72 69 70 Resp 12 12 18 B/P (MAP) 119/56 (77) 124/47 (72) 133/53 (79) Pulse Ox 100 100 100 100 O2 Delivery Ventilator Ventilator Ventilator Ventilator 10/09/21 10/09/21 10/09/21 10/09/21 04:00 04:00 05:00 05:20 Temp 98.8 98.8 Pulse 70 69 Resp 15 15 B/P (MAP) 138/59 (85) 149/65 (93) Pulse Ox 100 100 100 O2 Delivery Mechanical Ventilator Ventilator Ventilator Ventilator 10/09/21 10/09/21 10/09/21 10/09/21 06:00 07:00 07:03 08:00 Temp 98.9 98.9 Pulse 69 68 68 Resp 12 12 12 B/P (MAP) 142/61 (88) 139/61 (87) 139/59 (85) Pulse Ox 100 100 100 100 O2 Delivery Ventilator Ventilator Ventilator Ventilator 10/09/21 10/09/21 10/09/21 10/09/21 08:00 09:00 09:20 10:00 Pulse 72 68 Resp 12 12 B/P (MAP) 148/58 (88) 116/50 (72) Pulse Ox 100 100 100 O2 Delivery Mechanical Ventilator Ventilator Ventilator Ventilator 10/09/21 11:00 Pulse 69 Resp 12 B/P (MAP) 116/54 (74) Pulse Ox 100 O2 Delivery Ventilator Intake and Output 10/08/21 10/08/21 10/09/21 15:00 23:00 07:00 Intake Total 400 ml 1036 ml 800 ml Output Total 435 ml 425 ml 375 ml Balance -35 ml 611 ml 425 ml Justicifation of Admission Dx: Justifications for Admission: Justification of Admission Dx: N/A BRIDGETTE ROLAND MD Oct 09, 2021 11:22
--- NOTE | 2021-10-09 15:22 | NUR ---
SS following up with discharge planning. SS reviewed pt chart and discussed with pt RN. Pt is currently on the vent at 35%. Pt on IV Keppra. No sedation. Unresponsive. Physicians discussed goals of care with pt's family today. Possible withdrawal of care on 10/12/2021. SS will continue to follow for discharge planning.
[2021-10-10] VITALS (25 sets, daily range): BP systolic 111–142; BP diastolic 48–68
--- NOTE | 2021-10-10 07:14 | PDOC ---
[employer] PROGRESS NOTE Date of Service DOS: DATE: 10/10/21 TIME: 07:05 Chief Complaint Chief Complaint A/P: Acute hypoxic respiratory failure - likely due to aspiration pneumonia from vomiting likely from symptomatic 3rd degree heart block. Will cont vent, wean O2 as tolerated. Unasyn for aspiration pneumonia coverage. Consult pulmonology for vent management assistance PEA arrest - likely from above aspiration event, complicated by 3rd degree heart block. ROSC obtained Third degree heart block - s/p PPM generator change with apparent recovery of heart rate. Cont dopamine. ICU admission Abnormal chest CT - likely due to due to pneumonia Nausea and vomiting - likely from CHB, will treat for pneumonia, will rule out other infectious etiology. IV anti-emetics Fall - second fall in a week. If neurologic recovery occurs needs gait testing, though likely this was related to cardiac event Closed head injury - posterior scalp abrasion, local wound care. Monitor neurologic function. Anemia - will check iron studies, likely of chronic disease Thrombocytopenia - unclear etiology, will trend EDWIN - likely vasomotor nephropathy from arrest. Family does not know of any history of CKD, will order [facility] records Lactic acidosis - likely due to hypoxia, will trend Transaminitis - likely related to shock liver, will monitor Elevated trop - demand ischemia from 3rd degree heart block, likely, will trend out. HTN - will add back home meds as BP allows HLD - statin when taking PO FEN - NPO. NGT feed Vital AF @ 40 ml/hr and free water flushes 200 ml q 6 PPX - pepcid, lovenox CODE - partial - no chest compressions Dispo - ICU. Patient family arrived next 24 hours to discuss ongoing plan. Addendum: I have discussed with bryn Painting and Seng Felix about overall goals of care and they have requested to "wait another week". Have advised him of the potential risks of ventilator associated pneumonia bedsores and other potential infections and have recommended after 14 days on the ventilator to consider tracheostomy and feeding tube if they want to continue care also offered palliative care and hospice care they are still precontemplative and do not want to move forward with any surgical procedures. They have made it clear if he does have a cardiac arrest he would not like chest compressions and would not like to be on the ventilator for "a year History of Present Illness History of Present Illness Mr Cerda is an 86-year-old male with PMHx HTN, HLD s/p PPM who presented to [facility] in [place] via EMS after a PEA cardiac arrest. Per his son, he was at home and in the presence of son and son-in-law when he was observed actively choking and subsequently falling on the floor with significant amount of emesis that was nonbloody and nonbilious in nature. Son reports vomit with recently ingested food and laying his father on his side and cleaning out his mouth while son-in-law called EMS. On EMS arrival ~3 minutes later, patient was unresponsive and cyanotic and they intubated. En-route patient was found to be pulseless in PEA and appropriate ACLS measures were followed with application of Howard device for chest compressions, and per report had a total of x2 epinephrine administered via left tibial IO. After approximately 5 minutes ROSC was obtained. In ED was noted unresponsive with pinpoint pupils and GCS 3 with no purposeful movements. Per EMS report and son the patient takes Plavix, lisinopril, rosuvastatin and citalopram at home. He has a pacemaker per son, which was placed in [place] over 10 years ago, and the son says he follows at [facility], doesn't know about pacer follow up. Per son he fell 4 days prior and [facility], noted on his [facility]iput. Family notes he has been more weak than usual over past 72 hours, no travel or sick contacts. Is fully vaccinated against COVID 19. EKG appeared with third-degree heart block at 42 bpm, left axis deviation, T wave inversion noted in lead I, III, V2-6, no STEMI Vitals obtained concerning for marked bradycardia and no respiratory effort Labs with WBC 9.1, Hb 11.4, platelets 128, ABG 7.2 7/42/459 on 100% FiO2, rapid COVID-19 negative, NA 137, K4.2, BUN 50, CR 2, glucose 247, lactic acid 8.6, calcium 8.6, bilirubin 0.6, AST 131, ALT 157, alkaline phosphatase 90, ammonia 25, albumin 3, troponin 0.134, INR 1.1, urinalysis bland. CT head and neck with no acute abnormalities. CT chest with bibasilar infiltrates and NGT and ETT in good positioning. secured entrance monitor concerning for third-degree heart block, with rate in the 20s, therefore 1 mg epinephrine administered with minimal improvement in HR, then 1 mg atropine without significant improvement, then dopamine gtt without sustained improvement. 3 L IV fluid administered and unasyn for aspiration pneumonitis. Ultimately was responsive to transcutaneous pacing and after discussion with cardiology he was transferred to [facility] for further care. To quality lab technician prior to my assessment, had pacemaker generator replaced emergently. Seen in ICU. Discussed with son bedside. 09/23: Afebrile, on vent with FiO2 50%, PEEP 5. Continue dopamine gtt. We will continue Unasyn for aspiration pneumonia. Chest x-ray showed suspected partially consolidated left lower lobe infiltrate superimposed on right lower and bilateral upper lobe multifocal interstitial infiltrate.. Critical care time 30 minutes spent reviewing charts, general labs, reviewing imaging, and discussion with RN. 09/24: Afebrile. On vent with FiO2 40%, PEEP 5. Remains on pressor support. Off dopamine. Will continue Unasyn for pneumonia. Continue to wean off vent. Critical care time 30 minutes spent reviewing charts, general labs, reviewing imaging, discussion with Dr. Mcdaniel. 09/25: Low-grade fever overnight, T-max 100.6 F. On vent with FiO2 35%, PEEP 5. Chest x-ray yesterday showed diffuse increased interstitial opacity likely due to interstitial infiltrate. Continue IV antibiotics. He has been off sedation for the past 24 hours. Platelets have steadily dropped; platelets 89 today. I discussion with daughter and son-in-law by phone about concerns for worsening bruising and, cytopenia. They are agreeable to no chest compressions, as to not cause any further damage that may lead to prolonged intubation. We will continue to wean off ventilator. 30 minutes critical care time spent reviewing charts, reviewing labs, reviewing imaging, discussion with RN, and discussion with Dr. Ortiz. 09/26: Afebrile. On vent with FiO2 35%, PEEP 5. Chest x-ray today showing stable diffuse interstitial infiltrate. Platelets [address] Brand was consulted yesterday; he is discussed with family the likely poor prognosis. Sister wants to fly in from [place] to see him. Family would like DNR but chemical code; son-in-law will discuss with the rest of family. Critical care time 30 minutes spent reviewing chart, reviewing labs, reviewing imaging, discussing with Dr. Ortiz. 09/27: Afebrile; on vent with FiO2 50%, PEEP 5. Off. For 72 hours. Some spontaneous movements noted this morning. I believe family is flying in from [place] to see him prior to making full DNR; chemical code. Critical care time 30 minutes spent reviewing charts, general labs, reviewing imaging, and discussion with RN. 09/28: Febrile overnight, T-max 102.0 F. 09/29: Patient evaluated examined at bedside. Remains off sedation. But still pretty unresponsive. Absent brainstem reflexes. Will attempt to contact family today to see if they are in fact coming in from [place]. Still on Levophed and dopamine. 09/30: Patient evaluated and examined at bedside. Still off sedation and unresponsive. Still on Levophed for blood pressure support. Family supposed to arrive today for discussion of ongoing care. 10/01: Patient evaluated and examined at bedside. Still intubated and unresponsive. Requiring pressors. Talk to patient's son on phone today for 15 minutes discussing advanced care planning. He reported that she has not been able to discuss ongoing care with his sister as she works in the afternoons and he works in the evenings. Provided clinical updates to him told him about no real improvement at this point. Still remains on high ventilator settings. 10/02: Patient evaluated examined at bedside. Still intubated minimally responsive even without sedation. Waiting for son to arrive at bedside for care discussion. Otherwise continuing current plans. I spent 35 minutes critical care time reviewing charts labs imaging and discussion with subspecialist and nursing team. 10/03: Patient evaluated examined at bedside. I discussed with the family yesterday for approximately 35 minutes ongoing care plans. During that time patient did have some extremity movement along with some head movement showing discomfort from the ventilator. With this family would like to continue care for now. I spoke with them again at bedside today and that they would like to continue on until at least tomorrow evening. Still think very poor prognosis. However will honor family wishes. Plan of care discussed with bedside RN. I spent 35 minutes critical care time reviewing charts labs imaging and discussion with specialists and nursing team 10/04: Patient evaluated at bedside. Still with some movements in his extremities. Still intubated minimally responsive despite being off sedation for over a week. Continue discussion of goals with family. 35 minutes critical care time. 10/05: Patient evaluated examined at bedside. Hyponatremic this morning on review does appear his sodium has been creeping up. We will increase free water flushes. Family continues discussing goals of care. Here to provide them any information needed. 33 minutes critical care time 10/06: Overnight no events. NA 149, K3.4, Hb 9.5. No meaningful movement off sedation over a week. 10/07: Overnight afebrile. Withdraws from pain requiring great toe reflex is breathing over the ventilator. Brainstem reflexes intact seems to be anoxic brain injury. discussed with family over the phone the asked for an additional week. I encouraged consideration of comfort care offered tracheostomy and PEG a do not want surgical interventions at this time 10/08: NA 142 today. On vent 35% FiO2 PEEP of 5 O2 saturations 100%. Has doll's eyes no meaningful movement does withdraw from painful stimuli. Babinski bilaterally. Afebrile 10/09: Afebrile overnight. On vent 35% FiO2 PEEP 5 with O2 saturations 96%. Still with no movement today withdrawal from painful stimuli Babinski bilaterally. Meeting at [address] Price from pulmonology, plan to withdraw care on 10/12/2021 when daughter arrives T-max 100.1 F overnight. On vent 35% FiO2 PEEP 5, O2 saturations 96%. Still with no purposeful movement withdraws from painful stimuli bilateral Babinski CC time 30 min Vitals/I&O Vitals/I&O: Vital Signs Date Time Temp Pulse Resp B/P (MAP) Pulse Ox O2 Delivery O2 Flow Rate FiO2 10/10/21 06:00 70 14 124/53 (76) 99 Ventilator 10/10/21 04:00 100.1 100.1 I & O 10/09/21 10/09/21 10/10/21 15:00 23:00 07:00 Intake Total 875 ml 552 ml 1319 ml Output Total 490 ml 385 ml 280 ml Balance 385 ml 167 ml 1039 ml Physical Exam General: Other (Intubated sedated) Heart: Regular rate Lungs: Clear Abdomen: Normal bowel sounds Extremities: No clubbing, No cyanosis, No edema, Normal pulses, No tenderness/swelling Skin: Other (Extensive bruising to anterior chest wall) Labs Labs: Laboratory Tests Test 10/09/21 12:03 Glucose (Fingerstick) 121 mg/dL (70-99) Comment Review of Relevant I have reviewed the following items ivania (where applicable) has been applied. Justifications for Admission Chest Pain Indications Respiratory Distress?: Yes Justification for admission: Patient's respiratory distress as indicated by (SOB/tachypnea/abnormal breathing pattern plus hypoxemia/AMS/other evidence of respiratory compromise such as pulmonary edema on chest x-ray) will need inpatient level of care. Serious Diagnosis?: Yes Justification for admission: Chest pain may be indicative of potentially serious diagnosis/diagnoses Please state condition(s) which will require inpatient level of care for further evaluation and management. Other Justification TERESA CASTRO MD Oct 10, 2021 07:14
[2021-10-10] MEDS: FAMOTIDINE 20 MG/2 ML VIAL IVP SCH ×2 (07:53→22:33)
[2021-10-10] MEDS: levETIRAcetam 500 MG in IV DEXTROSE 5% 100ML 100 ML IV SCH ×2 (07:54→22:32)
--- NOTE | 2021-10-10 09:28 | PDOC ---
PULMONARY PROGRESS NOTES DATE: 10/10/21 TIME: 09:27 Subjective on vent peep 5 fio2 35% off sedation since 09/26 no response mod ett secretion Vitals Vital Signs Date Time Temp Pulse Resp B/P (MAP) Pulse Ox O2 Delivery O2 Flow Rate FiO2 10/10/21 09:00 69 14 111/48 (69) 100 Ventilator 10/10/21 08:00 100.7 100.7 Comments ros unable to obtain on vent not following commands HEENT: Other (nc at orally intubated nose clear neck no lad no thyromegaly) Lungs: Clear Cardiovascular: S1, S2 Abdomen: Soft Neuro Exam: Alert Extremities: Other (Some edema) Skin: Warm Labs Laboratory Tests Test 10/09/21 04:00 10/09/21 12:03 Sodium Level 139 mmol/L (136-145) Potassium Level 3.7 mmol/L (3.5-5.1) Chloride Level 107 mmol/L (98-107) Carbon Dioxide Level 25 mmol/L (21-32) Anion Gap 7 (6-14) Blood Urea Nitrogen 24 mg/dL (8-26) Creatinine 0.6 mg/dL (0.7-1.3) Estimated GFR (Cockcroft-Gault) 127.7 Glucose Level 109 mg/dL (70-99) Calcium Level 7.7 mg/dL (8.5-10.1) Glucose (Fingerstick) 121 mg/dL (70-99) Laboratory Tests Test 10/09/21 12:03 Glucose (Fingerstick) 121 mg/dL (70-99) Medications Active Scripts Medications Dose Route/Sig Max Daily Dose Days Date Category Dose Instructions Urea 227 Gm Cream..g. 1 Tata TP DAILY 30 09/23/21 Reported Crestor (Rosuvastatin Calcium) 40 Mg Tablet 1 Tab PO DAILY 09/23/21 Reported Namenda (Memantine Hcl) 10 Mg Tablet 1 Tab PO BID 09/23/21 Reported Pantoprazole Sodium (Pantoprazole Sodium) 40 Mg Tablet.dr 40 Mg PO DAILYAC 09/23/21 Reported Lisinopril 40 Mg Tablet 0.5 Tab PO DAILY 09/23/21 Reported Levothyroxine Sodium 50 Mcg Tablet 1 Tab PO DAILY 09/23/21 Reported Xolegel (Ketoconazole) 45 Gm Gel..gram. 1 Tata TP BID 30 09/23/21 Reported Isosorbide Mononitrate Er (Isosorbide Mononitrate) 60 Mg Tab.er.24h 1 Tab PO DAILY 09/23/21 Reported Hydrophor Ointment (Mineral Oil/Hydrophil Petrolat) 454 Gm Oint...g. 454 Gm TP PRN PRN 09/23/21 Reported Zetia (Ezetimibe) 10 Mg Tablet 1 Tab PO DAILY 30 09/23/21 Reported Donepezil Hcl 10 Mg Tablet 1 Tab PO DAILY 09/23/21 Reported Clopidogrel (Clopidogrel Bisulfate) 75 Mg Tablet 75 Mg PO DAILY 09/23/21 Reported Celexa (Citalopram Hydrobromide) 40 Mg Tablet 1 Tab PO DAILY 09/23/21 Reported Vitamin D3 (Vitamin D) 25 Mcg Tablet 25 Mcg PO DAILY 09/23/21 Reported 1,000 UNITS = 25 MCG Thera Tears (Carboxymethylcellulose Sodium) 15 Ml Drops 1 Drop EACHEYE QID 09/23/21 Reported Atenolol 25 Mg Tablet 1 Tab PO DAILY 09/23/21 Reported Amlodipine Besylate 5 Mg Tablet 5 Mg PO DAILY 09/23/21 Reported Comments cxr reviewed 09/28 Resolved previously seen diffuse interstitial infiltrates secondary to CHF Impression . IMPRESSION: 1. Acute hypoxemic respiratory failure secondary to complete heart block. 2. 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 3. Acute kidney injury. 4. Elevated liver chemistries. 5. Non-ST segment elevation myocardial infarction. 6. Severe protein malnutrition, present upon admission. 7. Respiratory alkalosis. Minute ventilation adjust 8. Patient does assist ventilator, brainstem function intact 9. Possible seizures 10. Anoxic brain injury Plan . Updated 10/10/21 Discussed with RN Patient has been off sedation since 09/26. 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 He has intact brainstem reflexes but has anoxic brain injury. cont vent support setting reviewed, off sedation since 09/26 elevate hob Continue current support abx pepcid scds for prophylaxis discussed w chemist intern meeting; 10/09/21. I had a long discussion with patient's family including daughter and son at the bedside. I explained to them patient's grim prognosis and likely anoxic encephalopathy. Patient has been off sedation since August 2029. He only triggers the ventilator but does not follow any commands. I have discussed with the patient's family regarding the goals of care. I have recommended that we should allow natural . Patient's family agrees. They do not want to consider tracheostomy or PEG tube placement. They have requested that patient's another daughter is coming from [place] this Wednesday. They would like to wait till she arrives here and like to proceed with withdrawal of care on Wednesday. I concur with that. Updated 10/09/21 Discussed with RN and Dr. Varags. Patient has been off sedation since 09/26. 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 He has intact brainstem reflexes but has anoxic brain injury. cont vent support setting reviewed, off sedation since 09/26 elevate hob Continue current support abx pepcid scds for prophylaxis discussed w chemist intern meeting; I had a long discussion with patient's family including daughter and son at the bedside. I explained to them patient's grim prognosis and likely anoxic encephalopathy. Patient has been off sedation since August 2029. He only triggers the ventilator but does not follow any commands. I have discussed with the patient's family regarding the goals of care. I have recommended that we should allow natural . Patient's family agrees. They do not want to consider tracheostomy or PEG tube placement. They have requested that patient's another daughter is coming from [place] this Wednesday. They would like to wait till she arrives here and like to proceed with withdrawal of care on Wednesday. I concur with that. Total critical care time 30 minutes Updated 10/08 Discussed with RN and Dr. Vargas. Patient has been off sedation since 09/26. 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 He has intact brainstem reflexes but likely has anoxic brain injury. I would recommend another meeting with the patient's family regarding comfort care. Have talked to Dr. Vargas and he will be reaching out to the family regarding goals of care cont vent support setting reviewed, off sedation since 09/26 elevate hob Continue current support abx pepcid scds for prophylaxis discussed w rn addend: d/w son in law. will arrange family meeting for tomorrow. Updated 10/07 Discussed with RN and Dr. Vargas. Patient has been off sedation since 09/26. 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 He has intact brainstem reflexes but likely has anoxic brain injury. I would recommend another meeting with the patient's family regarding comfort care. Have talked to Dr. Vargas and he will be reaching out to the family regarding goals of care cont vent support setting reviewed, off sedation since 09/26 elevate hob Continue current support abx pepcid scds for prophylaxis discussed w rn Updated 10/06 Discussed with RN and Dr. Vargas. Patient has been off sedation since 09/26. 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 He has intact brainstem reflexes but likely has anoxic brain injury. I would recommend another meeting with the patient's family regarding comfort care. cont vent support setting reviewed, off sedation since 09/26 elevate hob Continue current support abx pepcid scds for prophylaxis discussed w rn Updated 10/05 cont vent support setting reviewed, sbt when awake off sedation since 09/26 elevate hob Continue current support abx pepcid scds for prophylaxis discussed w rn Updated 10/04 cont vent support setting reviewed, sbt when awake elevate hob Continue current support abx pepcid scds for prophylaxis Patient and family wishes to wait a couple more days before final decision Updated 10/03 Continue current support Patient and family wishes to wait a couple more days before final decision 10/02 nasal discussed with veterinary technician assistant meeting later today with Dr. Flood I would recommend discontinuing support allow natural GAGE CALLAHAN MD Oct 10, 2021 09:28
--- NOTE | 2021-10-10 15:59 | NUR ---
SS following up with discharge planning. SS reviewed pt chart and discussed with pt RN. Pt is currently on the vent at 35%. Pt on IV Keppra. No sedation. Unresponsive. Physicians discussed goals of care with pt's family. Possible withdrawal of care on 10/12/2021. SS will continue to follow for discharge planning.
[2021-10-11] VITALS (23 sets, daily range): BP systolic 113–153; BP diastolic 52–80
--- NOTE | 2021-10-11 06:08 | PDOC ---
PULMONARY PROGRESS NOTES DATE: 10/11/21 TIME: 06:07 Subjective on vent peep 5 fio2 35% off sedation since 09/26 no response mod ett secretion Vitals Vital Signs Date Time Temp Pulse Resp B/P (MAP) Pulse Ox O2 Delivery O2 Flow Rate FiO2 10/11/21 05:00 12 14 144/80 (101) 100 Ventilator 10/11/21 04:00 98.6 98.6 Comments ros unable to obtain on vent not following commands HEENT: Other (nc at orally intubated nose clear neck no lad no thyromegaly) Lungs: Clear Cardiovascular: S1, S2 Abdomen: Soft Neuro Exam: Alert Extremities: Other (Some edema) Skin: Warm Labs Laboratory Tests Test 10/09/21 12:03 10/10/21 11:59 Glucose (Fingerstick) 121 mg/dL (70-99) 111 mg/dL (70-99) Laboratory Tests Test 10/10/21 11:59 Glucose (Fingerstick) 111 mg/dL (70-99) Medications Active Scripts Medications Dose Route/Sig Max Daily Dose Days Date Category Dose Instructions Urea 227 Gm Cream..g. 1 Tata TP DAILY 30 09/23/21 Reported Crestor (Rosuvastatin Calcium) 40 Mg Tablet 1 Tab PO DAILY 09/23/21 Reported Namenda (Memantine Hcl) 10 Mg Tablet 1 Tab PO BID 09/23/21 Reported Pantoprazole Sodium (Pantoprazole Sodium) 40 Mg Tablet.dr 40 Mg PO DAILYAC 09/23/21 Reported Lisinopril 40 Mg Tablet 0.5 Tab PO DAILY 09/23/21 Reported Levothyroxine Sodium 50 Mcg Tablet 1 Tab PO DAILY 09/23/21 Reported Xolegel (Ketoconazole) 45 Gm Gel..gram. 1 Tata TP BID 30 09/23/21 Reported Isosorbide Mononitrate Er (Isosorbide Mononitrate) 60 Mg Tab.er.24h 1 Tab PO DAILY 09/23/21 Reported Hydrophor Ointment (Mineral Oil/Hydrophil Petrolat) 454 Gm Oint...g. 454 Gm TP PRN PRN 09/23/21 Reported Zetia (Ezetimibe) 10 Mg Tablet 1 Tab PO DAILY 30 09/23/21 Reported Donepezil Hcl 10 Mg Tablet 1 Tab PO DAILY 09/23/21 Reported Clopidogrel (Clopidogrel Bisulfate) 75 Mg Tablet 75 Mg PO DAILY 09/23/21 Reported Celexa (Citalopram Hydrobromide) 40 Mg Tablet 1 Tab PO DAILY 09/23/21 Reported Vitamin D3 (Vitamin D) 25 Mcg Tablet 25 Mcg PO DAILY 09/23/21 Reported 1,000 UNITS = 25 MCG Thera Tears (Carboxymethylcellulose Sodium) 15 Ml Drops 1 Drop EACHEYE QID 09/23/21 Reported Atenolol 25 Mg Tablet 1 Tab PO DAILY 09/23/21 Reported Amlodipine Besylate 5 Mg Tablet 5 Mg PO DAILY 09/23/21 Reported Comments cxr reviewed 09/28 Resolved previously seen diffuse interstitial infiltrates secondary to CHF Impression . IMPRESSION: 1. Acute hypoxemic respiratory failure secondary to complete heart block. 2. 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 3. Acute kidney injury. 4. Elevated liver chemistries. 5. Non-ST segment elevation myocardial infarction. 6. Severe protein malnutrition, present upon admission. 7. Respiratory alkalosis. Minute ventilation adjust 8. Patient does assist ventilator, brainstem function intact 9. Possible seizures 10. Anoxic brain injury Plan . Updated 10/11/21 on vent peep 5 fio2 35% Patient has been off sedation since 09/26. 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 He has intact brainstem reflexes but has anoxic brain injury. cont vent support setting reviewed, off sedation since 09/26 elevate hob Continue current support abx pepcid scds for prophylaxis discussed w furnace tapper withdrawing support tomorrow Updated 10/10/21 Discussed with RN Patient has been off sedation since 09/26. 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 He has intact brainstem reflexes but has anoxic brain injury. cont vent support setting reviewed, off sedation since 09/26 elevate hob Continue current support abx pepcid scds for prophylaxis discussed w journeyman welder meeting; 10/09/21. I had a long discussion with patient's family including daughter and son at the bedside. I explained to them patient's grim prognosis and likely anoxic encephalopathy. Patient has been off sedation since August 2029. He only triggers the ventilator but does not follow any commands. I have discussed with the patient's family regarding the goals of care. I have recommended that we should allow natural . Patient's family agrees. They do not want to consider tracheostomy or PEG tube placement. They have requested that patient's another daughter is coming from [place] this Wednesday. They would like to wait till she arrives here and like to proceed with withdrawal of care on Wednesday. I concur with that. Updated 10/09/21 Discussed with RN and Dr. Vargas. Patient has been off sedation since 09/26. 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 He has intact brainstem reflexes but has anoxic brain injury. cont vent support setting reviewed, off sedation since 09/26 elevate hob Continue current support abx pepcid scds for prophylaxis discussed w journeyman welder meeting; I had a long discussion with patient's family including daughter and son at the bedside. I explained to them patient's grim prognosis and likely anoxic encephalopathy. Patient has been off sedation since August 2029. He only triggers the ventilator but does not follow any commands. I have discussed with the patient's family regarding the goals of care. I have recommended that we should allow natural . Patient's family agrees. They do not want to consider tracheostomy or PEG tube placement. They have requested that patient's another daughter is coming from [place] this Wednesday. They would like to wait till she arrives here and like to proceed with withdrawal of care on Wednesday. I concur with that. Total critical care time 30 minutes Updated 10/08 Discussed with RN and Dr. Vargas. Patient has been off sedation since 09/26. 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 He has intact brainstem reflexes but likely has anoxic brain injury. I would recommend another meeting with the patient's family regarding comfort care. Have talked to Dr. Vargas and he will be reaching out to the family regarding goals of care cont vent support setting reviewed, off sedation since 09/26 elevate hob Continue current support abx pepcid scds for prophylaxis discussed w rn addend: d/w son in law. will arrange family meeting for tomorrow. Updated 10/07 Discussed with RN and Dr. Vargas. Patient has been off sedation since 09/26. 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 He has intact brainstem reflexes but likely has anoxic brain injury. I would recommend another meeting with the patient's family regarding comfort care. Have talked to Dr. Vargas and he will be reaching out to the family regarding goals of care cont vent support setting reviewed, off sedation since 09/26 elevate hob Continue current support abx pepcid scds for prophylaxis discussed w rn Updated 10/06 Discussed with RN and Dr. Vargas. Patient has been off sedation since 09/26. 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 He has intact brainstem reflexes but likely has anoxic brain injury. I would recommend another meeting with the patient's family regarding comfort care. cont vent support setting reviewed, off sedation since 09/26 elevate hob Continue current support abx pepcid scds for prophylaxis discussed w rn Updated 10/05 cont vent support setting reviewed, sbt when awake off sedation since 09/26 elevate hob Continue current support abx pepcid scds for prophylaxis discussed w rn Updated 10/04 cont vent support setting reviewed, sbt when awake elevate hob Continue current support abx pepcid scds for prophylaxis Patient and family wishes to wait a couple more days before final decision Updated 10/03 Continue current support Patient and family wishes to wait a couple more days before final decision 10/02 nasal 9 discussed with woods overseer meeting later today with Dr. Flood I would recommend discontinuing support allow natural OLIVE CAMPBELL MD Oct 11, 2021 06:08
[2021-10-11] MEDS: levETIRAcetam 500 MG in IV DEXTROSE 5% 100ML 100 ML IV SCH ×2 (09:27→20:43)
[2021-10-11] MEDS: FAMOTIDINE 20 MG/2 ML VIAL IVP SCH ×2 (09:27→20:43)
--- NOTE | 2021-10-11 11:10 | PDOC ---
[employer] PROGRESS NOTE Date of Service DOS: DATE: 10/11/21 TIME: 11:06 Chief Complaint Chief Complaint A/P: Acute hypoxic respiratory failure - likely due to aspiration pneumonia from vomiting likely from symptomatic 3rd degree heart block. Will cont vent, wean O2 as tolerated. Unasyn for aspiration pneumonia coverage. Consult pulmonology for vent management assistance PEA arrest - likely from above aspiration event, complicated by 3rd degree heart block. ROSC obtained Third degree heart block - s/p PPM generator change with apparent recovery of heart rate. Cont dopamine. ICU admission Abnormal chest CT - likely due to due to pneumonia Nausea and vomiting - likely from CHB, will treat for pneumonia, will rule out other infectious etiology. IV anti-emetics Fall - second fall in a week. If neurologic recovery occurs needs gait testing, though likely this was related to cardiac event Closed head injury - posterior scalp abrasion, local wound care. Monitor neurologic function. Anemia - will check iron studies, likely of chronic disease Thrombocytopenia - unclear etiology, will trend EDWIN - likely vasomotor nephropathy from arrest. Family does not know of any history of CKD, will order [facility] records Lactic acidosis - likely due to hypoxia, will trend Transaminitis - likely related to shock liver, will monitor Elevated trop - demand ischemia from 3rd degree heart block, likely, will trend out. HTN - will add back home meds as BP allows HLD - statin when taking PO FEN - NPO. NGT feed Vital AF @ 40 ml/hr and free water flushes 200 ml q 6 PPX - pepcid, lovenox CODE - partial - no chest compressions Dispo - ICU. Patient family arrived next 24 hours to discuss ongoing plan. Addendum: I have discussed with bryn Painting and Seng Felix about overall goals of care and they have requested to "wait another week". Have advised him of the potential risks of ventilator associated pneumonia bedsores and other potential infections and have recommended after 14 days on the ventilator to consider tracheostomy and feeding tube if they want to continue care also offered palliative care and hospice care they are still precontemplative and do not want to move forward with any surgical procedures. They have made it clear if he does have a cardiac arrest he would not like chest compressions and would not like to be on the ventilator for "a year History of Present Illness History of Present Illness Mr Cerda is an 86-year-old male with PMHx HTN, HLD s/p PPM who presented to [facility] in [place] via EMS after a PEA cardiac arrest. Per his son, he was at home and in the presence of son and son-in-law when he was observed actively choking and subsequently falling on the floor with significant amount of emesis that was nonbloody and nonbilious in nature. Son reports vomit with recently ingested food and laying his father on his side and cleaning out his mouth while son-in-law called EMS. On EMS arrival ~3 minutes later, patient was unresponsive and cyanotic and they intubated. En-route patient was found to be pulseless in PEA and appropriate ACLS measures were followed with application of Howard device for chest compressions, and per report had a total of x2 epinephrine administered via left tibial IO. After approximately 5 minutes ROSC was obtained. In ED was noted unresponsive with pinpoint pupils and GCS 3 with no purposeful movements. Per EMS report and son the patient takes Plavix, lisinopril, rosuvastatin and citalopram at home. He has a pacemaker per son, which was placed in [place] over 10 years ago, and the son says he follows at [facility], doesn't know about pacer follow up. Per son he fell 4 days prior and [facility] noted [facility] his [facility]iput. Family notes he has been more weak than usual over past 72 hours, no travel or sick contacts. Is fully vaccinated against COVID 19. EKG appeared with third-degree heart block at 42 bpm, left axis deviation, T wave inversion noted in lead I, III, V2-6, no STEMI Vitals obtained concerning for marked bradycardia and no respiratory effort Labs with WBC 9.1, Hb 11.4, platelets 128, ABG 7.2 7/42/459 on 100% FiO2, rapid COVID-19 negative, NA 137, K4.2, BUN 50, CR 2, glucose 247, lactic acid 8.6, calcium 8.6, bilirubin 0.6, AST 131, ALT 157, alkaline phosphatase 90, ammonia 25, albumin 3, troponin 0.134, INR 1.1, urinalysis bland. CT head and neck with no acute abnormalities. CT chest with bibasilar infiltrates and NGT and ETT in good positioning. oracle iam consultant concerning for third-degree heart block, with rate in the 20s, therefore 1 mg epinephrine administered with minimal improvement in HR, then 1 mg atropine without significant improvement, then dopamine gtt without sustained improvement. 3 L IV fluid administered and unasyn for aspiration pneumonitis. Ultimately was responsive to transcutaneous pacing and after discussion with cardiology he was transferred to [facility] for further care. To research laboratory specialist prior to my assessment, had pacemaker generator replaced emergently. Seen in ICU. Discussed with son bedside. 09/23: Afebrile, on vent with FiO2 50%, PEEP 5. Continue dopamine gtt. We will continue Unasyn for aspiration pneumonia. Chest x-ray showed suspected partially consolidated left lower lobe infiltrate superimposed on right lower and bilateral upper lobe multifocal interstitial infiltrate.. Critical care time 30 minutes spent reviewing charts, general labs, reviewing imaging, and discussion with RN. 09/24: Afebrile. On vent with FiO2 40%, PEEP 5. Remains on pressor support. Off dopamine. Will continue Unasyn for pneumonia. Continue to wean off vent. Critical care time 30 minutes spent reviewing charts, general labs, reviewing imaging, discussion with Dr. Mcdaniel. 09/25: Low-grade fever overnight, T-max 100.6 F. On vent with FiO2 35%, PEEP 5. Chest x-ray yesterday showed diffuse increased interstitial opacity likely due to interstitial infiltrate. Continue IV antibiotics. He has been off sedation for the past 24 hours. Platelets have steadily dropped; platelets 89 today. I discussion with daughter and son-in-law by phone about concerns for worsening bruising and, cytopenia. They are agreeable to no chest compressions, as to not cause any further damage that may lead to prolonged intubation. We will continue to wean off ventilator. 30 minutes critical care time spent reviewing charts, reviewing labs, reviewing imaging, discussion with RN, and discussion with Dr. Ortiz. 09/26: Afebrile. On vent with FiO2 35%, PEEP 5. Chest x-ray today showing stable diffuse interstitial infiltrate. Platelets [address] Brand was consulted yesterday; he is discussed with family the likely poor prognosis. Sister wants to fly in from [place] to see him. Family would like DNR but chemical code; son-in-law will discuss with the rest of family. Critical care time 30 minutes spent reviewing chart, reviewing labs, reviewing imaging, discussing with Dr. Ortiz. 09/27: Afebrile; on vent with FiO2 50%, PEEP 5. Off. For 72 hours. Some spontaneous movements noted this morning. I believe family is flying in from [place] to see him prior to making full DNR; chemical code. Critical care time 30 minutes spent reviewing charts, general labs, reviewing imaging, and discussion with RN. 09/28: Febrile overnight, T-max 102.0 F. 09/29: Patient evaluated examined at bedside. Remains off sedation. But still pretty unresponsive. Absent brainstem reflexes. Will attempt to contact family today to see if they are in fact coming in from [place]. Still on Levophed and dopamine. 09/30: Patient evaluated and examined at bedside. Still off sedation and unresponsive. Still on Levophed for blood pressure support. Family supposed to arrive today for discussion of ongoing care. 10/01: Patient evaluated and examined at bedside. Still intubated and unresponsive. Requiring pressors. Talk to patient's son on phone today for 15 minutes discussing advanced care planning. He reported that she has not been able to discuss ongoing care with his sister as she works in the afternoons and he works in the evenings. Provided clinical updates to him told him about no real improvement at this point. Still remains on high ventilator settings. 10/02: Patient evaluated examined at bedside. Still intubated minimally responsive even without sedation. Waiting for son to arrive at bedside for care discussion. Otherwise continuing current plans. I spent 35 minutes critical care time reviewing charts labs imaging and discussion with subspecialist and nursing team. 10/03: Patient evaluated examined at bedside. I discussed with the family yesterday for approximately 35 minutes ongoing care plans. During that time patient did have some extremity movement along with some head movement showing discomfort from the ventilator. With this family would like to continue care for now. I spoke with them again at bedside today and that they would like to continue on until at least tomorrow evening. Still think very poor prognosis. However will honor family wishes. Plan of care discussed with bedside RN. I spent 35 minutes critical care time reviewing charts labs imaging and discussion with specialists and nursing team 10/04: Patient evaluated at bedside. Still with some movements in his extremities. Still intubated minimally responsive despite being off sedation for over a week. Continue discussion of goals with family. 35 minutes critical care time. 10/05: Patient evaluated examined at bedside. Hyponatremic this morning on review does appear his sodium has been creeping up. We will increase free water flushes. Family continues discussing goals of care. Here to provide them any information needed. 33 minutes critical care time 10/06: Overnight no events. NA 149, K3.4, Hb 9.5. No meaningful movement off sedation over a week. 10/07: Overnight afebrile. Withdraws from pain requiring great toe reflex is breathing over the ventilator. Brainstem reflexes intact seems to be anoxic brain injury. discussed with family over the phone the asked for an additional week. I encouraged consideration of comfort care offered tracheostomy and PEG a do not want surgical interventions at this time 10/08: NA 142 today. On vent 35% FiO2 PEEP of 5 O2 saturations 100%. Has doll's eyes no meaningful movement does withdraw from painful stimuli. Babinski bilaterally. Afebrile 10/09: Afebrile overnight. On vent 35% FiO2 PEEP 5 with O2 saturations 96%. Still with no movement today withdrawal from painful stimuli Babinski bilaterally. Meeting at [address] Price from pulmonology, plan to withdraw care on 10/12/2021 when daughter arrives 10/10T-max 100.1 F overnight. On vent 35% FiO2 PEEP 5, O2 saturations 96%. Still with no purposeful movement withdraws from painful stimuli bilateral Babinski 10/11/2021 No acute events overnight. Patient seen and examined bedside. Current vent settings of 12/500/35/5. Patient remains on dopamine for pressors and not on any sedatives. No purposeful movements upon sternal rub. Patient's chart, labs, images were reviewed and discussed with RN Vitals/I&O Vitals/I&O: Vital Signs Date Time Temp Pulse Resp B/P (MAP) Pulse Ox O2 Delivery O2 Flow Rate FiO2 10/11/21 09:04 100 Ventilator 10/11/21 09:00 72 18 153/61 (91) 10/11/21 08:00 99.3 99.3 I & O 10/10/21 10/10/21 10/11/21 15:00 23:00 07:00 Intake Total 725 ml 920 ml 400 ml Output Total 410 ml 300 ml 875 ml Balance 315 ml 620 ml -475 ml Physical Exam General: Other (Intubated sedated) Heart: Regular rate Lungs: Clear Abdomen: Normal bowel sounds Extremities: No clubbing, No cyanosis, No edema, Normal pulses, No tenderness/swelling Skin: Other (Extensive bruising to anterior chest wall) Labs Labs: Laboratory Tests Test 10/10/21 11:59 Glucose (Fingerstick) 111 mg/dL (70-99) Comment Review of Relevant I have reviewed the following items ivania (where applicable) has been applied. Justifications for Admission Chest Pain Indications Respiratory Distress?: Yes Justification for admission: Patient's respiratory distress as indicated by (SOB/tachypnea/abnormal breathing pattern plus hypoxemia/AMS/other evidence of respiratory compromise such as pulmonary edema on chest x-ray) will need inpatient level of care. Serious Diagnosis?: Yes Justification for admission: Chest pain may be indicative of potentially serious diagnosis/diagnoses Please state condition(s) which will require inpatient level of care for further evaluation and management. Other Justification EMILY HARRIS MD Oct 11, 2021 11:10
[2021-10-12] VITALS (18 sets, daily range): BP systolic 108–147; BP diastolic 49–61
--- NOTE | 2021-10-12 05:54 | PDOC ---
PULMONARY PROGRESS NOTES DATE: 10/12/21 TIME: 05:52 Subjective on vent peep 5 fio2 35% off sedation since 09/26 no response mod ett secretion Vitals Vital Signs Date Time Temp Pulse Resp B/P (MAP) Pulse Ox O2 Delivery O2 Flow Rate FiO2 10/12/21 04:31 100 Ventilator 10/12/21 04:00 99.0 72 12 122/55 (77) 99.0 Comments ros unable to obtain on vent not following commands HEENT: Other (nc at orally intubated nose clear neck no lad no thyromegaly) Lungs: Clear Cardiovascular: S1, S2 Abdomen: Soft Neuro Exam: Alert Extremities: Other (Some edema) Skin: Warm Labs Laboratory Tests Test 10/10/21 11:59 Glucose (Fingerstick) 111 mg/dL (70-99) Medications Active Scripts Medications Dose Route/Sig Max Daily Dose Days Date Category Dose Instructions Urea 227 Gm Cream..g. 1 Tata TP DAILY 30 09/23/21 Reported Crestor (Rosuvastatin Calcium) 40 Mg Tablet 1 Tab PO DAILY 09/23/21 Reported Namenda (Memantine Hcl) 10 Mg Tablet 1 Tab PO BID 09/23/21 Reported Pantoprazole Sodium (Pantoprazole Sodium) 40 Mg Tablet.dr 40 Mg PO DAILYAC 09/23/21 Reported Lisinopril 40 Mg Tablet 0.5 Tab PO DAILY 09/23/21 Reported Levothyroxine Sodium 50 Mcg Tablet 1 Tab PO DAILY 09/23/21 Reported Xolegel (Ketoconazole) 45 Gm Gel..gram. 1 Tata TP BID 30 09/23/21 Reported Isosorbide Mononitrate Er (Isosorbide Mononitrate) 60 Mg Tab.er.24h 1 Tab PO DAILY 09/23/21 Reported Hydrophor Ointment (Mineral Oil/Hydrophil Petrolat) 454 Gm Oint...g. 454 Gm TP PRN PRN 09/23/21 Reported Zetia (Ezetimibe) 10 Mg Tablet 1 Tab PO DAILY 30 09/23/21 Reported Donepezil Hcl 10 Mg Tablet 1 Tab PO DAILY 09/23/21 Reported Clopidogrel (Clopidogrel Bisulfate) 75 Mg Tablet 75 Mg PO DAILY 09/23/21 Reported Celexa (Citalopram Hydrobromide) 40 Mg Tablet 1 Tab PO DAILY 09/23/21 Reported Vitamin D3 (Vitamin D) 25 Mcg Tablet 25 Mcg PO DAILY 09/23/21 Reported 1,000 UNITS = 25 MCG Thera Tears (Carboxymethylcellulose Sodium) 15 Ml Drops 1 Drop EACHEYE QID 09/23/21 Reported Atenolol 25 Mg Tablet 1 Tab PO DAILY 09/23/21 Reported Amlodipine Besylate 5 Mg Tablet 5 Mg PO DAILY 09/23/21 Reported Comments cxr reviewed 09/28 Resolved previously seen diffuse interstitial infiltrates secondary to CHF Impression . IMPRESSION: 1. Acute hypoxemic respiratory failure secondary to complete heart block. 2. 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 3. Acute kidney injury. 4. Elevated liver chemistries. 5. Non-ST segment elevation myocardial infarction. 6. Severe protein malnutrition, present upon admission. 7. Respiratory alkalosis. Minute ventilation adjust 8. Patient does assist ventilator, brainstem function intact 9. Possible seizures 10. Anoxic brain injury Plan . 10/12 on vent peep 5 fio2 35% Patient has been off sedation since 09/26. 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 He has intact brainstem reflexes but has anoxic brain injury. cont vent support setting reviewed, off sedation since 09/26 elevate hob Continue current support off abx pepcid scds for prophylaxis discussed w ornithology teacher withdrawing support today Updated 10/09/21 Discussed with RN and Dr. Vargas. Patient has been off sedation since 09/26. 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 He has intact brainstem reflexes but has anoxic brain injury. cont vent support setting reviewed, off sedation since 09/26 elevate hob Continue current support abx pepcid scds for prophylaxis discussed w garnishment specialist meeting; I had a long discussion with patient's family including daughter and son at the bedside. I explained to them patient's grim prognosis and likely anoxic encephalopathy. Patient has been off sedation since August 2029. He only triggers the ventilator but does not follow any commands. I have discussed with the patient's family regarding the goals of care. I have recommended that we should allow natural . Patient's family agrees. They do not want to consider tracheostomy or PEG tube placement. They have requested that patient's another daughter is coming from [place] this Wednesday. They would like to wait till she arrives here and like to proceed with withdrawal of care on Wednesday. I concur with that. They understand that patient will not survive after ex tubation.They are focussed in keeping him comfortable post extubation. Patient will be DNR post extubation. Total critical care time 30 minutes Updated 10/08 Discussed with RN and Dr. Vargas. Patient has been off sedation since 09/26. 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 He has intact brainstem reflexes but likely has anoxic brain injury. I would recommend another meeting with the patient's family regarding comfort care. Have talked to Dr. Vargas and he will be reaching out to the family regnathalie villalobos goals of care cont vent support setting reviewed, off sedation since 09/26 elevate hob Continue current support abx pepcid scds for prophylaxis discussed w rn addend: d/w son in law. will arrange family meeting for tomorrow. Updated 10/07 Discussed with RN and Dr. Vargas. Patient has been off sedation since 09/26. 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 He has intact brainstem reflexes but likely has anoxic brain injury. I would recommend another meeting with the patient's family regarding comfort c are. Have talked to Dr. Vargas and he will be reaching out to the family regarding goals of care cont vent support setting reviewed, off sedation since 09/26 elevate hob Continue current support abx pepcid scds for prophylaxis discussed w rn Updated 10/06 Discussed with RN and Dr. Vargas. Patient has been off sedation since 09/26. 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 He has intact brainstem reflexes but likely has anoxic brain injury. I would recommend another meeting with the patient's family regarding comfort care. cont vent support setting reviewed, off sedation since 09/26 elevate hob Continue current support abx pepcid scds for prophylaxis discussed w rn Updated 10/05 cont vent support setting reviewed, sbt when awake off sedation since 09/26 elevate hob Continue current support abx pepcid scds for prophylaxis discussed w rn Updated 10/04 cont vent support setting reviewed, sbt when awake elevate hob Continue current support abx pepcid scds for prophylaxis Patient and family wishes to wait a couple more days before final decision Updated 10/03 Continue current support Patient and family wishes to wait a couple more days before final decision 10/02 discussed with tankage grinder meeting later today with Dr. Flood I would recommend discontinuing support allow natural OLIVE CAMPBELL MD Oct 12, 2021 05:54
[2021-10-12] MEDS: FAMOTIDINE 20 MG/2 ML VIAL IVP SCH ×2 (09:00→21:00)
[2021-10-12] MEDS: levETIRAcetam 500 MG in IV DEXTROSE 5% 100ML 100 ML IV SCH ×2 (09:00→21:00)
[2021-10-12] MEDS: MORPHINE SULFATE 2 MG/ML INJ. IV PRN ×3 (15:55→17:38)
[2021-10-13] VITALS: BP 102/42
[2021-10-13 04:00] VITALS: BP 114/49
[2021-10-13 08:00] VITALS: BP 127/56
--- NOTE | 2021-10-13 08:49 | PDOC ---
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 I have seen no improvement during the term I have been following him Family agreed to extubation yesterday but no one changed his CODE STATUS. 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 She agrees to DO NOT RESUSCITATE. She is worried that we are starving him to , I reassured her that this is the natural process and giving him fluids would simply prolong suffering. However, if he wakes up in the next few days by some miracle, we would of course resume nutrition. Otherwise, comfort care. Subjective None Objective Vital Signs Date Time Temp Pulse Resp B/P (MAP) Pulse Ox O2 Delivery O2 Flow Rate FiO2 10/13/21 04:00 98.2 69 16 114/49 (70) Nasal Cannula 2.0 98.2 10/13/21 00:00 100 Intake and Output 10/13/21 07:00 Intake Total 400 ml Output Total 1440 ml Balance -1040 ml Tube Feeding 400 ml Output Urine Total 1440 ml PHYSICAL EXAM Extubated, eyes closed, no response to voice, postures a little to pain PERRL. CN: no focal findings. Muscle tone: normal. Muscle strength: Slight withdrawal to pain on the right DTR: 1+ Plantar reflex: Silent Gait: not examined. Sensory exam: Not cooperative. Cerebellar: Not cooperative Review of Relevant I have reviewed the following items ivania (where applicable) has been applied. Medications Current Medications Fentanyl Citrate 30 ml @ 2.5 mls/hr CONT PRN IV SEE PROTOCOL Last administered on 09/24/21at 04:21; Start 09/22/21 at 18:00; Stop 10/06/21 at 08:56; Status DC Midazolam HCl 100 ml @ 1 mls/hr CONT PRN IV SEE PROTOCOL Last administered on 09/24/21at 04:21; Start 09/22/21 at 18:00; Stop 10/06/21 at 08:56; Status DC Propofol 100 ml @ 2.244 mls/ hr CONT PRN IV PER PROTOCOL Last administered on 09/22/21at 17:39; Start 09/22/21 at 18:00; Stop 10/06/21 at 08:56; Status DC Sodium Chloride 500 ml @ 500 mls/hr 1X PRN PRN IV SEE COMMENTS; Start 09/22/21 at 18:00 Atropine Sulfate (ATROPINE 0.5mg SYRINGE) 0.5 mg PRN Q5MIN PRN IV SEE COMMENTS; Start 09/22/21 at 18:00 Famotidine (Pepcid Vial) 20 mg BID IVP Last administered on 09/22/21at 21:58; Start 09/22/21 at 21:00; Stop 09/23/21 at 08:32; Status DC Midazolam HCl (Versed) 2 mg 1X ONCE IV Last administered on 09/22/21at 18:15; Start 09/22/21 at 18:15; Stop 09/22/21 at 18:16; Status DC Lidocaine/ Epinephrine (LIDOCAINE 2%-EPI 1:100,000 multi-dose) 20 ml 1X ONCE IJ Last administered on 09/22/21at 18:17; Start 09/22/21 at 18:15; Stop 09/22/21 at 18:16; Status DC Cefazolin Sodium (Ancef) 1 gm 1X ONCE IVP Last administered on 09/22/21at 18:15; Start 09/22/21 at 18:15; Stop 09/22/21 at 18:16; Status DC Propofol 100 ml @ 2.244 mls/ hr CONT PRN IV PER PROTOCOL; Start 09/22/21 at 18:15; Status UNV Ondansetron HCl (Zofran) 4 mg PRN Q4HRS PRN IVP NAUSEA/VOMITING; Start 09/22/21 at 18:45 Acetaminophen (Tylenol Supp) 650 mg PRN Q6HRS PRN MO MILD PAIN / TEMP > 100.3'F Last administered on 09/25/21at 00:26; Start 09/22/21 at 18:45 Bisacodyl (Dulcolax Supp) 10 mg PRN DAILY PRN MO CONSTIPATION; Start 09/22/21 at 18:45 Promethazine HCl (Phenergan Supp) 12.5 mg PRN Q6HRS PRN MO NAUSEA/VOMITING; Start 09/22/21 at 18:45 Ampicillin Sodium/ Sulbactam Sodium 3 gm/Sodium Chloride 100 ml @ 200 mls/hr Q6HRS IV Last administered on 09/25/21at 12:21; Start 09/22/21 at 18:45; Stop 09/25/21 at 16:21; Status DC Dopamine HCl/ Dextrose 250 ml @ 28.05 mls/ hr CONT PRN IV SEE I/O RECORD Last administered on 09/23/21at 08:44; Start 09/22/21 at 18:45 Lidocaine/ Epinephrine (LIDOCAINE 2%-EPI 1:100,000 multi-dose) 20 ml STK-MED ONCE .ROUTE ; Start 09/22/21 at 18:53; Stop 09/22/21 at 18:53; Status DC Midazolam HCl (Versed) 2 mg STK-MED ONCE .ROUTE ; Start 09/22/21 at 18:53; Stop 09/22/21 at 18:53; Status DC Cefazolin Sodium (Ancef) 1 gm STK-MED ONCE IVP ; Start 09/22/21 at 18:53; Stop 09/22/21 at 18:53; Status DC Fentanyl Citrate (Fentanyl 2ml Vial) 25 mcg PRN Q3HRS PRN IVP SEVERE PAIN 7-10; Start 09/22/21 at 21:30; Status Cancel Famotidine (Pepcid Vial) 20 mg DAILY IVP Last administered on 10/03/21at 08:56; Start 09/23/21 at 09:00; Stop 10/03/21 at 11:35; Status DC Heparin Sodium (Porcine) (Heparin Sodium) 5,000 unit Q12HR SQ Last administered on 09/23/21at 20:45; Start 09/23/21 at 21:00; Stop 09/23/21 at 22:59; Status DC Norepinephrine Bitartrate 8 mg/ Dextrose 258 ml @ 13.971 mls/ hr CONT PRN IV PER PROTOCOL Last administered on 09/23/21at 22:14; Start 09/23/21 at 11:45 Ampicillin Sodium/ Sulbactam Sodium 3 gm/Sodium Chloride 100 ml @ 200 mls/hr Q12HR IV Last administered on 09/28/21at 07:52; Start 09/25/21 at 21:00; Stop 09/28/21 at 13:20; Status DC Levetiracetam 500 mg/Dextrose 105 ml @ 420 mls/hr Q12HR IV Last administered on 10/11/21at 20:43; Start 09/26/21 at 04:00 Furosemide (Lasix) 20 mg 1X ONCE IVP Last administered on 09/26/21at 13:15; Start 09/26/21 at 13:15; Stop 09/26/21 at 13:16; Status DC Ampicillin Sodium/ Sulbactam Sodium 3 gm/Sodium Chloride 100 ml @ 200 mls/hr Q6HRS IV Last administered on 10/06/21at 05:59; Start 09/28/21 at 18:00; Stop 10/06/21 at 08:56; Status DC Acetaminophen (Tylenol) 650 mg PRN Q6HRS PRN PEG MILD PAIN / TEMP > 100.3'F Last administered on 09/30/21at 20:52; Start 09/29/21 at 09:45 Famotidine (Pepcid Vial) 20 mg BID IVP Last administered on 10/11/21at 20:43; Start 10/03/21 at 21:00 Morphine Sulfate (Morphine Sulfate) 2 mg PRN Q15MIN PRN IV PAIN Last administered on 10/12/21at 17:38; Start 10/12/21 at 14:30 Lorazepam (Ativan Inj) 2 mg PRN Q1HR PRN IVP ANXIETY / AGITATION Last administered on 10/12/21at 17:38; Start 10/12/21 at 14:30 Scopolamine (Transderm-Scop) 1 patch Q3DAYS TD ; Start 10/13/21 at 09:00 Active Scripts Active Reported Urea 227 Gm Cream..g. 1 Tata TP DAILY 30 Days Crestor (Rosuvastatin Calcium) 40 Mg Tablet 1 Tab PO DAILY Namenda (Memantine Hcl) 10 Mg Tablet 1 Tab PO BID Pantoprazole Sodium (Pantoprazole Sodium) 40 Mg Tablet.dr 40 Mg PO DAILYAC Lisinopril 40 Mg Tablet 0.5 Tab PO DAILY Levothyroxine Sodium 50 Mcg Tablet 1 Tab PO DAILY Xolegel (Ketoconazole) 45 Gm Gel..gram. 1 Tata TP BID 30 Days Isosorbide Mononitrate Er (Isosorbide Mononitrate) 60 Mg Tab.er.24h 1 Tab PO DAILY Hydrophor Ointment (Mineral Oil/Hydrophil Petrolat) 454 Gm Oint...g. 454 Gm TP PRN PRN Zetia (Ezetimibe) 10 Mg Tablet 1 Tab PO DAILY 30 Days Donepezil Hcl 10 Mg Tablet 1 Tab PO DAILY Clopidogrel (Clopidogrel Bisulfate) 75 Mg Tablet 75 Mg PO DAILY Celexa (Citalopram Hydrobromide) 40 Mg Tablet 1 Tab PO DAILY Vitamin D3 (Vitamin D) 25 Mcg Tablet 25 Mcg PO DAILY 1,000 UNITS = 25 MCG Thera Tears (Carboxymethylcellulose Sodium) 15 Ml Drops 1 Drop EACHEYE QID Atenolol 25 Mg Tablet 1 Tab PO DAILY Amlodipine Besylate 5 Mg Tablet 5 Mg PO DAILY Vitals/I & O Vital Sign - Last 24 Hours 10/12/21 10/12/21 10/12/21 10/12/21 09:00 09:18 10:00 11:00 Pulse 70 69 69 Resp 12 12 12 B/P (MAP) 147/61 (89) 140/58 (85) 138/59 (85) Pulse Ox 100 100 100 100 O2 Delivery Ventilator Ventilator Ventilator Ventilator 10/12/21 10/12/21 10/12/21 10/12/21 11:00 12:00 12:00 13:00 Temp 98.9 98.9 Pulse 69 69 Resp 12 12 B/P (MAP) 140/59 (86) 146/60 (88) Pulse Ox 100 100 100 O2 Delivery Ventilator Mechanical Ventilator Ventilator Ventilator 10/12/21 10/12/21 10/12/21 10/12/21 13:16 14:00 15:00 15:00 Pulse 71 69 Resp 12 12 B/P (MAP) 144/61 (88) 141/60 (87) Pulse Ox 100 100 100 100 O2 Delivery Ventilator Ventilator Ventilator Ventilator 10/12/21 10/12/21 10/12/21 10/12/21 15:55 16:00 16:25 16:52 Temp 98.7 98.7 Pulse 69 Resp 20 B/P (MAP) 141/60 (87) Pulse Ox 100 99 99 99 O2 Delivery Nasal Cannula O2 Flow Rate 2.0 2.0 2.0 10/12/21 10/12/21 10/12/21 10/12/21 17:38 18:08 20:00 20:00 Temp 98.5 98.5 Pulse 69 Resp 16 B/P (MAP) 108/49 (68) Pulse Ox 99 99 100 O2 Delivery Nasal Cannula Nasal Cannula O2 Flow Rate 2.0 2.0 2.0 10/13/21 10/13/21 00:00 04:00 Temp 98.7 98.2 98.7 98.2 Pulse 69 69 Resp 14 16 B/P (MAP) 102/42 (62) 114/49 (70) Pulse Ox 100 O2 Delivery Nasal Cannula Nasal Cannula O2 Flow Rate 2.0 Intake and Output 10/12/21 10/12/21 10/13/21 15:00 23:00 07:00 Intake Total 400 ml Output Total 650 ml 165 ml 625 ml Balance -250 ml -165 ml -625 ml Justicifation of Admission Dx: Justifications for Admission: Justification of Admission Dx: N/A BRIDGETTE ROLAND MD Oct 13, 2021 08:49
[2021-10-13] MEDS: levETIRAcetam 500 MG in IV DEXTROSE 5% 100ML 100 ML IV SCH ×2 (09:00→21:31)
--- NOTE | 2021-10-13 09:09 | PDOC ---
PULMONARY PROGRESS NOTES DATE: 10/13/21 TIME: 09:07 Subjective Patient extubated 10/12 Does not follow any commands Upper airway noise no stridor mostly retained secretion Vitals Vital Signs Date Time Temp Pulse Resp B/P (MAP) Pulse Ox O2 Delivery O2 Flow Rate FiO2 10/13/21 04:00 98.2 69 16 114/49 (70) Nasal Cannula 2.0 98.2 10/13/21 00:00 100 Comments ros unable to obtain on vent not following commands HEENT: Other (nc at orally intubated nose clear neck no lad no thy romegaly) Lungs: Crackles Cardiovascular: S1, S2 Abdomen: Soft Extremities: Other (Some edema) Skin: Warm Medications Active Scripts Medications Dose Route/Sig Max Daily Dose Days Date Category Dose Instructions Urea 227 Gm Cream..g. 1 Tata TP DAILY 30 09/23/21 Reported Crestor (Rosuvastatin Calcium) 40 Mg Tablet 1 Tab PO DAILY 09/23/21 Reported Namenda (Memantine Hcl) 10 Mg Tablet 1 Tab PO BID 09/23/21 Reported Pantoprazole Sodium (Pantoprazole Sodium) 40 Mg Tablet.dr 40 Mg PO DAILYAC 09/23/21 Reported Lisinopril 40 Mg Tablet 0.5 Tab PO DAILY 09/23/21 Reported Levothyroxine Sodium 50 Mcg Tablet 1 Tab PO DAILY 09/23/21 Reported Xolegel (Ketoconazole) 45 Gm Gel..gram. 1 Tata TP BID 30 09/23/21 Reported Isosorbide Mononitrate Er (Isosorbide Mononitrate) 60 Mg Tab.er.24h 1 Tab PO DAILY 09/23/21 Reported Hydrophor Ointment (Mineral Oil/Hydrophil Petrolat) 454 Gm Oint...g. 454 Gm TP PRN PRN 09/23/21 Reported Zetia (Ezetimibe) 10 Mg Tablet 1 Tab PO DAILY 30 09/23/21 Reported Donepezil Hcl 10 Mg Tablet 1 Tab PO DAILY 09/23/21 Reported Clopidogrel (Clopidogrel Bisulfate) 75 Mg Tablet 75 Mg PO DAILY 09/23/21 Reported Celexa (Citalopram Hydrobromide) 40 Mg Tablet 1 Tab PO DAILY 09/23/21 Reported Vitamin D3 (Vitamin D) 25 Mcg Tablet 25 Mcg PO DAILY 09/23/21 Reported 1,000 UNITS = 25 MCG Thera Tears (Carboxymethylcellulose Sodium) 15 Ml Drops 1 Drop EACHEYE QID 09/23/21 Reported Atenolol 25 Mg Tablet 1 Tab PO DAILY 09/23/21 Reported Amlodipine Besylate 5 Mg Tablet 5 Mg PO DAILY 09/23/21 Reported Comments cxr reviewed 09/28 Resolved previously seen diffuse interstitial infiltrates secondary to CHF Impression . IMPRESSION: 1. Acute hypoxemic respiratory failure secondary to complete heart block. 2. 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 3. Acute kidney injury. 4. Elevated liver chemistries. 5. Non-ST segment elevation myocardial infarction. 6. Severe protein malnutrition, present upon admission. 7. Respiratory alkalosis. Minute ventilation adjust 8. Patient does assist ventilator, brainstem function intact 9. Possible seizures 10. Anoxic brain injury Plan . Updated 10/13 Patient extubated yesterday Discussed with neurologist, I do not recommend initiating tube feeding Recommend palliative care, Discussed with social service and RN CT MERCEDES MD Oct 13, 2021 09:09
--- NOTE | 2021-10-13 09:42 | NUR ---
SS following up with discharge planning. SS reviewed pt chart and discussed with pt RN. Family withdrew care on 10/12/2021. Pt is currently on two liters nasal canula. DNR. IV Keppra. Not responsive. Comfort care as of now. Hospice referral requested. SS phoned and faxed referral to [facility], ; fax [phone]. SS will continue to follow for discharge planning.
[2021-10-13] MEDS: SCOPOLAMINE 1.5MG PATCH. TD SCH (10:46)
[2021-10-13] MEDS: FAMOTIDINE 20 MG/2 ML VIAL IVP SCH ×2 (10:46→21:32)
[2021-10-13] MEDS: MORPHINE SULFATE 2 MG/ML INJ. IV PRN ×2 (10:53→18:01)
[2021-10-13 12:00] VITALS: BP 118/53
--- NOTE | 2021-10-13 13:10 | PDOC ---
[employer] PROGRESS NOTE Date of Service DOS: DATE: 10/12/21 TIME: 13:07 Chief Complaint Chief Complaint A/P: Acute hypoxic respiratory failure - likely due to aspiration pneumonia from vomiting likely from symptomatic 3rd degree heart block. Will cont vent, wean O2 as tolerated. Unasyn for aspiration pneumonia coverage. Consult pulmonology for vent management assistance PEA arrest - likely from above aspiration event, complicated by 3rd degree heart block. ROSC obtained Third degree heart block - s/p PPM generator change with apparent recovery of heart rate. Cont dopamine. ICU admission Abnormal chest CT - likely due to due to pneumonia Nausea and vomiting - likely from CHB, will treat for pneumonia, will rule out other infectious etiology. IV anti-emetics Fall - second fall in a week. If neurologic recovery occurs needs gait testing, though likely this was related to cardiac event Closed head injury - posterior scalp abrasion, local wound care. Monitor neurologic function. Anemia - will check iron studies, likely of chronic disease Thrombocytopenia - unclear etiology, will trend EDWIN - likely vasomotor nephropathy from arrest. Family does not know of any history of CKD, will order [facility] records Lactic acidosis - likely due to hypoxia, will trend Transaminitis - likely related to shock liver, will monitor Elevated trop - demand ischemia from 3rd degree heart block, likely, will trend out. HTN - will add back home meds as BP allows HLD - statin when taking PO FEN - NPO. NGT feed Vital AF @ 40 ml/hr and free water flushes 200 ml q 6 PPX - pepcid, lovenox CODE - partial - no chest compressions Dispo - ICU. Patient family arrived next 24 hours to discuss ongoing plan. Addendum: I have discussed with bryn Painting and Seng Felix about overall goals of care and they have requested to "wait another week". Have advised him of the potential risks of ventilator associated pneumonia bedsores and other potential infections and have recommended after 14 days on the ventilator to consider tracheostomy and feeding tube if they want to continue care also offered palliative care and hospice care they are still precontemplative and do not want to move forward with any surgical procedures. They have made it clear if he does have a cardiac arrest he would not like chest compressions and would not like to be on the ventilator for "a year History of Present Illness History of Present Illness Mr Cerda is an 86-year-old male with PMHx HTN, HLD s/p PPM who presented to [place] ED in [place] via EMS after a PEA cardiac arrest. Per his son, he was at home and in the presence of son and son-in-law when he was observed actively choking and subsequently falling on the floor with significant amount of emesis that was nonbloody and nonbilious in nature. Son reports vomit with recently ingested food and laying his father on his side and cleaning out his mouth while son-in-law called EMS. On EMS arrival ~3 minutes later, patient was unresponsive and cyanotic and they intubated. En-route patient was found to be pulseless in PEA and appropriate ACLS measures were followed with application of Howard device for chest compressions, and per report had a total of x2 epinephrine administered via left tibial IO. After approximately 5 minutes ROSC was obtained. In ED was noted unresponsive with pinpoint pupils and GCS 3 with no purposeful movements. Per EMS report and son the patient takes Plavix, lisinopril, rosuvastatin and citalopram at home. He has a pacemaker per son, which was placed in [place] over 10 years ago, and the son says he follows at [facility], doesn't know about pacer follow up. Per son he fell 4 days prior and [facility], noted on his occiput. Family notes he has been more weak than usual over past 72 hours, no travel or sick contacts. Is fully vaccinated against COVID 19. EKG appeared with third-degree heart block at 42 bpm, left axis deviation, T wave inversion noted in lead I, III, V2-6, no STEMI Vitals obtained concerning for marked bradycardia and no respiratory effort Labs with WBC 9.1, Hb 11.4, platelets 128, ABG 7.2 7/42/459 on 100% FiO2, rapid COVID-19 negative, NA 137, K4.2, BUN 50, CR 2, glucose 247, lactic acid 8.6, calcium 8.6, bilirubin 0.6, AST 131, ALT 157, alkaline phosphatase 90, ammonia 25, albumin 3, troponin 0.134, INR 1.1, urinalysis bland. CT head and neck with no acute abnormalities. CT chest with bibasilar infiltrates and NGT and ETT in good positioning. traffic monitor specialist concerning for third-degree heart block, with rate in the 20s, therefore 1 mg epinephrine administered with minimal improvement in HR, then 1 mg atropine without significant improvement, then dopamine gtt without sustained improvement. 3 L IV fluid administered and unasyn for aspiration pneumonitis. Ultimately was responsive to transcutaneous pacing and after discussion with cardiology he was transferred to [facility] for further care. 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 Seen in ICU. Discussed with son bedside. 09/23: Afebrile, on vent with FiO2 50%, PEEP 5. Continue dopamine gtt. We will continue Unasyn for aspiration pneumonia. Chest x-ray showed suspected partially consolidated left lower lobe infiltrate superimposed on right lower and bilateral upper lobe multifocal interstitial infiltrate.. Critical care time 30 minutes spent reviewing charts, general labs, reviewing imaging, and discussion with RN. 09/24: Afebrile. On vent with FiO2 40%, PEEP 5. Remains on pressor support. Off dopamine. Will continue Unasyn for pneumonia. Continue to wean off vent. Critical care time 30 minutes spent reviewing charts, general labs, reviewing imaging, discussion with Dr. Mcdaniel. 09/25: Low-grade fever overnight, T-max 100.6 F. On vent with FiO2 35%, PEEP 5. Chest x-ray yesterday showed diffuse increased interstitial opacity likely due to interstitial infiltrate. Continue IV antibiotics. He has been off sedation for the past 24 hours. Platelets have steadily dropped; platelets 89 today. I discussion with daughter and son-in-law by phone about concerns for worsening bruising and, cytopenia. They are agreeable to no chest compressions, as to not cause any further damage that may lead to prolonged intubation. We will continue to wean off ventilator. 30 minutes critical care time spent reviewing charts, reviewing labs, reviewing imaging, discussion with RN, and discussion with Dr. Ortiz. 09/26: Afebrile. On vent with FiO2 35%, PEEP 5. Chest x-ray today showing stable diffuse interstitial infiltrate. Platelets [address] Brand was consulted yesterday; he is discussed with family the likely poor prognosis. Sister wants to fly in from [place] to see him. Family would like DNR but chemical code; son-in-law will discuss with the rest of family. Critical care time 30 minutes spent reviewing chart, reviewing labs, reviewing imaging, discussing with Dr. Ortiz. 09/27: Afebrile; on vent with FiO2 50%, PEEP 5. Off. For 72 hours. Some spontaneous movements noted this morning. I believe family is flying in from [place] to see him prior to making full DNR; chemical code. Critical care time 30 minutes spent reviewing charts, general labs, reviewing imaging, and discussion with RN. 09/28: Febrile overnight, T-max 102.0 F. 09/29: Patient evaluated examined at bedside. Remains off sedation. But still pretty unresponsive. Absent brainstem reflexes. Will attempt to contact family today to see if they are in fact coming in from [place]. Still on Levophed and dopamine. 09/30: Patient evaluated and examined at bedside. Still off sedation and unresponsive. Still on Levophed for blood pressure support. Family supposed to arrive today for discussion of ongoing care. 10/01: Patient evaluated and examined at bedside. Still intubated and unresponsive. Requiring pressors. Talk to patient's son on phone today for 15 minutes discussing advanced care planning. He reported that she has not been able to discuss ongoing care with his sister as she works in the afternoons and he works in the evenings. Provided clinical updates to him told him about no real improvement at this point. Still remains on high ventilator settings. 10/02: Patient evaluated examined at bedside. Still intubated minimally responsive even without sedation. Waiting for son to arrive at bedside for care discussion. Otherwise continuing current plans. I spent 35 minutes critical care time reviewing charts labs imaging and discussion with subspecialist and nursing team. 10/03: Patient evaluated examined at bedside. I discussed with the family yesterday for approximately 35 minutes ongoing care plans. During that time patient did have some extremity movement along with some head movement showing discomfort from the ventilator. With this family would like to continue care for now. I spoke with them again at bedside today and that they would like to continue on until at least tomorrow evening. Still think very poor prognosis. However will honor family wishes. Plan of care discussed with bedside RN. I spent 35 minutes critical care time reviewing charts labs imaging and discussion with specialists and nursing team 10/04: Patient evaluated at bedside. Still with some movements in his extremities. Still intubated minimally responsive despite being off sedation for over a week. Continue discussion of goals with family. 35 minutes critical care time. 10/05: Patient evaluated examined at bedside. Hyponatremic this morning on review does appear his sodium has been creeping up. We will increase free water flushes. Family continues discussing goals of care. Here to provide them any information needed. 33 minutes critical care time 10/06: Overnight no events. NA 149, K3.4, Hb 9.5. No meaningful movement off sedation over a week. 10/07: Overnight afebrile. Withdraws from pain requiring great toe reflex is breathing over the ventilator. Brainstem reflexes intact seems to be anoxic brain injury. discussed with family over the phone the asked for an additional week. I encouraged consideration of comfort care offered tracheostomy and PEG a do not want surgical interventions at this time 10/08: NA 142 today. On vent 35% FiO2 PEEP of 5 O2 saturations 100%. Has doll's eyes no meaningful movement does withdraw from painful stimuli. Babinski bilaterally. Afebrile 10/09: Afebrile overnight. On vent 35% FiO2 PEEP 5 with O2 saturations 96%. Still with no movement today withdrawal from painful stimuli Babinski bilaterally. Meeting at [address] Price from pulmonology, plan to withdraw care on 10/12/2021 when daughter arrives 10/10T-max 100.1 F overnight. On vent 35% FiO2 PEEP 5, O2 saturations 96%. Still with no purposeful movement withdraws from painful stimuli bilateral Babinski 10/11/2021 No acute events overnight. Patient seen and examined bedside. Current vent settings of 12/500/35/5. Patient remains on dopamine for pressors and not on any sedatives. No purposeful movements upon sternal rub. Patient's chart, labs, images were reviewed and discussed with RN 10/12/21 Patient seen and examined bedside. No acute events overnight. Patient extubated this afternoon and appears comfortable. Maintaining his own without any pain. No pressors at this time. Patient's chart, labs, images were reviewed and discussed with RN. Vitals/I&O Vitals/I&O: Vital Signs Date Time Temp Pulse Resp B/P (MAP) Pulse Ox O2 Delivery O2 Flow Rate FiO2 10/13/21 10:53 100 Nasal Cannula 2.0 10/13/21 04:00 98.2 69 16 114/49 (70) 98.2 I & O 10/12/21 10/12/21 10/13/21 15:00 23:00 07:00 Intake Total 400 ml Output Total 650 ml 165 ml 625 ml Balance -250 ml -165 ml -625 ml Physical Exam General: No acute distress Heart: Regular rate Lungs: Crackles Abdomen: Normal bowel sounds Extremities: No clubbing, No cyanosis, No edema, Normal pulses, No tendernes s/swelling Skin: Other (Extensive bruising to anterior chest wall) Comment Review of Relevant I have reviewed the following items ivania (where applicable) has been applied. Medications: Current Medications Medications (Trade) Dose Ordered Sig/Subha Route PRN Reason Start Time Stop Time Status Last Admin Dose Admin Morphine Sulfate (Morphine Sulfate) 2 mg PRN Q15MIN PRN IV PAIN 10/12/21 14:30 10/13/21 10:53 Lorazepam (Ativan Inj) 2 mg PRN Q1HR PRN IVP ANXIETY / AGITATION 10/12/21 14:30 10/13/21 10:59 Scopolamine (Transderm-Scop) 1 patch Q3DAYS TD 10/13/21 09:00 10/13/21 10:46 Justifications for Admission Chest Pain Indications Respiratory Distress?: Yes Justification for admission: Patient's respiratory distress as indicated by (SOB/tachypnea/abnormal breathing pattern plus hypoxemia/AMS/other evidence of respiratory compromise such as pulmonary edema on chest x-ray) will need inpatient level of care. Serious Diagnosis?: Yes Justification for admission: Chest pain may be indicative of potentially serious diagnosis/diagnoses Please state condition(s) which will require inpatient level of care for further evaluation and management. Other Justification EMILY HARRIS MD Oct 13, 2021 13:10
[2021-10-13 16:00] VITALS: BP 122/55
[2021-10-13 20:00] VITALS: BP 115/50
[2021-10-14] VITALS: BP 124/53
[2021-10-14 04:00] VITALS: BP 126/59
[2021-10-14 08:00] VITALS: BP 139/56
--- NOTE | 2021-10-14 08:29 | PDOC ---
PULMONARY PROGRESS NOTES DATE: 10/14/21 TIME: 08:29 Subjective Patient extubated 10/12 Does not follow any commands Upper airway noise no stridor mostly retained secretion Vitals Vital Signs Date Time Temp Pulse Resp B/P (MAP) Pulse Ox O2 Delivery O2 Flow Rate FiO2 10/14/21 08:00 99.1 69 23 139/56 (83) 97 Nasal Cannula 1.0 99.1 Comments ros unable to obtain on vent not following commands HEENT: Other (nc at orally intubated nose clear neck no lad no thyromegaly) Lungs: Crackles Cardiovascular: S1, S2 Abdomen: Soft Extremities: Other (Some edema) Skin: Warm Medications Active Scripts Medications Dose Route/Sig Max Daily Dose Days Date Category Dose Instructions Urea 227 Gm Cream..g. 1 Tata TP DAILY 30 09/23/21 Reported Crestor (Rosuvastatin Calcium) 40 Mg Tablet 1 Tab PO DAILY 09/23/21 Reported Namenda (Memantine Hcl) 10 Mg Tablet 1 Tab PO BID 09/23/21 Reported Pantoprazole Sodium (Pantoprazole Sodium) 40 Mg Tablet.dr 40 Mg PO DAILYAC 09/23/21 Reported Lisinopril 40 Mg Tablet 0.5 Tab PO DAILY 09/23/21 Reported Levothyroxine Sodium 50 Mcg Tablet 1 Tab PO DAILY 09/23/21 Reported Xolegel (Ketoconazole) 45 Gm Gel..gram. 1 Tata TP BID 30 09/23/21 Reported Isosorbide Mononitrate Er (Isosorbide Mononitrate) 60 Mg Tab.er.24h 1 Tab PO DAILY 09/23/21 Reported Hydrophor Ointment (Mineral Oil/Hydrophil Petrolat) 454 Gm Oint...g. 454 Gm TP PRN PRN 09/23/21 Reported Zetia (Ezetimibe) 10 Mg Tablet 1 Tab PO DAILY 30 09/23/21 Reported Donepezil Hcl 10 Mg Tablet 1 Tab PO DAILY 09/23/21 Reported Clopidogrel (Clopidogrel Bisulfate) 75 Mg Tablet 75 Mg PO DAILY 09/23/21 Reported Celexa (Citalopram Hydrobromide) 40 Mg Tablet 1 Tab PO DAILY 09/23/21 Reported Vitamin D3 (Vitamin D) 25 Mcg Tablet 25 Mcg PO DAILY 09/23/21 Reported 1,000 UNITS = 25 MCG Thera Tears (Carboxymethylcellulose Sodium) 15 Ml Drops 1 Drop EACHEYE QID 09/23/21 Reported Atenolol 25 Mg Tablet 1 Tab PO DAILY 09/23/21 Reported Amlodipine Besylate 5 Mg Tablet 5 Mg PO DAILY 09/23/21 Reported Comments cxr reviewed 09/28 Resolved previously seen diffuse interstitial infiltrates secondary to CHF Impression . IMPRESSION: 1. Acute hypoxemic respiratory failure secondary to complete heart block. 2. 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 3. Acute kidney injury. 4. Elevated liver chemistries. 5. Non-ST segment elevation myocardial infarction. 6. Severe protein malnutrition, present upon admission. 7. Respiratory alkalosis. Minute ventilation adjust 8. Patient does assist ventilator, brainstem function intact 9. Possible seizures 10. Anoxic brain injury Plan . Updated 10/14 Discussed with social media coordinator We will need to discuss options with family. I will discuss with Dr. Lara, and hospitalist, may be the 3 of us could talk to the family all at once I am available anytime tomorrow Updated 10/13 Patient extubated yesterday Discussed with neurologist, I do not recommend initiating tube feeding Recommend palliative care, Discussed with social service and RN CT MERCEDES MD Oct 14, 2021 08:29
[2021-10-14] MEDS: FAMOTIDINE 20 MG/2 ML VIAL IVP SCH ×2 (09:07→20:47)
--- NOTE | 2021-10-14 09:12 | PDOC ---
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 I have seen no improvement during the term I have been following him Family agreed to extubation yesterday but no one changed his CODE STATUS. 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 Subjective none Objective Vital Signs Date Time Temp Pulse Resp B/P (MAP) Pulse Ox O2 Delivery O2 Flow Rate FiO2 10/14/21 08:00 99.1 69 23 139/56 (83) 97 Nasal Cannula 1.0 99.1 Intake and Output 10/14/21 07:00 Intake Total 0 ml Output Total 1125 ml Balance -1125 ml Intake Oral 0 ml Output Urine Total 1125 ml PHYSICAL EXAM Appears comfortable, not as rattley with the scopolamine patch Extubated, eyes closed, no response to voice, postures a little to pain PERRL. CN: no focal findings. Muscle tone: normal. Muscle strength: Slight withdrawal to pain on the right DTR: 1+ Plantar reflex: Silent Gait: not examined. Sensory exam: Not cooperative. Cerebellar: Not cooperative Review of Relevant I have reviewed the following items ivania (where applicable) has been applied. Medications Current Medications Fentanyl Citrate 30 ml @ 2.5 mls/hr CONT PRN IV SEE PROTOCOL Last administered on 09/24/21at 04:21; Start 09/22/21 at 18:00; Stop 10/06/21 at 08:56; Status DC Midazolam HCl 100 ml @ 1 mls/hr CONT PRN IV SEE PROTOCOL Last administered on 09/24/21at 04:21; Start 09/22/21 at 18:00; Stop 10/06/21 at 08:56; Status DC Propofol 100 ml @ 2.244 mls/ hr CONT PRN IV PER PROTOCOL Last administered on 09/22/21at 17:39; Start 09/22/21 at 18:00; Stop 10/06/21 at 08:56; Status DC Sodium Chloride 500 ml @ 500 mls/hr 1X PRN PRN IV SEE COMMENTS; Start 09/22/21 at 18:00 Atropine Sulfate (ATROPINE 0.5mg SYRINGE) 0.5 mg PRN Q5MIN PRN IV SEE COMMENTS; Start 09/22/21 at 18:00 Famotidine (Pepcid Vial) 20 mg BID IVP Last administered on 09/22/21at 21:58; Start 09/22/21 at 21:00; Stop 09/23/21 at 08:32; Status DC Midazolam HCl (Versed) 2 mg 1X ONCE IV Last administered on 09/22/21at 18:15; Start 09/22/21 at 18:15; Stop 09/22/21 at 18:16; Status DC Lidocaine/ Epinephrine (LIDOCAINE 2%-EPI 1:100,000 multi-dose) 20 ml 1X ONCE IJ Last administered on 09/22/21at 18:17; Start 09/22/21 at 18:15; Stop 09/22/21 at 18:16; Status DC Cefazolin Sodium (Ancef) 1 gm 1X ONCE IVP Last administered on 09/22/21at 18:15; Start 09/22/21 at 18:15; Stop 09/22/21 at 18:16; Status DC Propofol 100 ml @ 2.244 mls/ hr CONT PRN IV PER PROTOCOL; Start 09/22/21 at 18:15; Status UNV Ondansetron HCl (Zofran) 4 mg PRN Q4HRS PRN IVP NAUSEA/VOMITING; Start 09/22/21 at 18:45 Acetaminophen (Tylenol Supp) 650 mg PRN Q6HRS PRN NH MILD PAIN / TEMP > 100.3'F Last administered on 09/25/21at 00:26; Start 09/22/21 at 18:45 Bisacodyl (Dulcolax Supp) 10 mg PRN DAILY PRN NH CONSTIPATION; Start 09/22/21 at 18:45 Promethazine HCl (Phenergan Supp) 12.5 mg PRN Q6HRS PRN NH NAUSEA/VOMITING; Start 09/22/21 at 18:45 Ampicillin Sodium/ Sulbactam Sodium 3 gm/Sodium Chloride 100 ml @ 200 mls/hr Q6HRS IV Last administered on 09/25/21at 12:21; Start 09/22/21 at 18:45; Stop 09/25/21 at 16:21; Status DC Dopamine HCl/ Dextrose 250 ml @ 28.05 mls/ hr CONT PRN IV SEE I/O RECORD Last administered on 09/23/21at 08:44; Start 09/22/21 at 18:45; Stop 10/13/21 at 09:59; Status DC Lidocaine/ Epinephrine (LIDOCAINE 2%-EPI 1:100,000 multi-dose) 20 ml STK-MED ONCE .ROUTE ; Start 09/22/21 at 18:53; Stop 09/22/21 at 18:53; Status DC Midazolam HCl (Versed) 2 mg STK-MED ONCE .ROUTE ; Start 09/22/21 at 18:53; Stop 09/22/21 at 18:53; Status DC Cefazolin Sodium (Ancef) 1 gm STK-MED ONCE IVP ; Start 09/22/21 at 18:53; Stop 09/22/21 at 18:53; Status DC Fentanyl Citrate (Fentanyl 2ml Vial) 25 mcg PRN Q3HRS PRN IVP SEVERE PAIN 7-10; Start 09/22/21 at 21:30; Status Cancel Famotidine (Pepcid Vial) 20 mg DAILY IVP Last administered on 10/03/21at 08:56; Start 09/23/21 at 09:00; Stop 10/03/21 at 11:35; Status DC Heparin Sodium (Porcine) (Heparin Sodium) 5,000 unit Q12HR SQ Last administered on 09/23/21at 20:45; Start 09/23/21 at 21:00; Stop 09/23/21 at 22:59; Status DC Norepinephrine Bitartrate 8 mg/ Dextrose 258 ml @ 13.971 mls/ hr CONT PRN IV PER PROTOCOL Last administered on 09/23/21at 22:14; Start 09/23/21 at 11:45; Stop 10/13/21 at 09:59; Status DC Ampicillin Sodium/ Sulbactam Sodium 3 gm/Sodium Chloride 100 ml @ 200 mls/hr Q12HR IV Last administered on 09/28/21at 07:52; Start 09/25/21 at 21:00; Stop 09/28/21 at 13:20; Status DC Levetiracetam 500 mg/Dextrose 105 ml @ 420 mls/hr Q12HR IV Last administered on 10/13/21at 21:31; Start 09/26/21 at 04:00 Furosemide (Lasix) 20 mg 1X ONCE IVP Last administered on 09/26/21at 13:15; Start 09/26/21 at 13:15; Stop 09/26/21 at 13:16; Status DC Ampicillin Sodium/ Sulbactam Sodium 3 gm/Sodium Chloride 100 ml @ 200 mls/hr Q6HRS IV Last administered on 10/06/21at 05:59; Start 09/28/21 at 18:00; Stop 10/06/21 at 08:56; Status DC Acetaminophen (Tylenol) 650 mg PRN Q6HRS PRN PEG MILD PAIN / TEMP > 100.3'F Last administered on 09/30/21at 20:52; Start 09/29/21 at 09:45; Stop 10/13/21 at 10:00; Status DC Famotidine (Pepcid Vial) 20 mg BID IVP Last administered on 10/14/21at 09:07; Start 10/03/21 at 21:00 Morphine Sulfate (Morphine Sulfate) 2 mg PRN Q15MIN PRN IV PAIN Last administered on 10/13/21at 18:01; Start 10/12/21 at 14:30 Lorazepam (Ativan Inj) 2 mg PRN Q1HR PRN IVP ANXIETY / AGITATION Last administered on 10/13/21at 18:07; Start 10/12/21 at 14:30 Scopolamine (Transderm-Scop) 1 patch Q3DAYS TD Last administered on 10/13/21at 10:46; Start 10/13/21 at 09:00 Active Scripts Active Reported Urea 227 Gm Cream..g. 1 Tata TP DAILY 30 Days Crestor (Rosuvastatin Calcium) 40 Mg Tablet 1 Tab PO DAILY Namenda (Memantine Hcl) 10 Mg Tablet 1 Tab PO BID Pantoprazole Sodium (Pantoprazole Sodium) 40 Mg Tablet.dr 40 Mg PO DAILYAC Lisinopril 40 Mg Tablet 0.5 Tab PO DAILY Levothyroxine Sodium 50 Mcg Tablet 1 Tab PO DAILY Xolegel (Ketoconazole) 45 Gm Gel..gram. 1 Tata TP BID 30 Days Isosorbide Mononitrate Er (Isosorbide Mononitrate) 60 Mg Tab.er.24h 1 Tab PO DAILY Hydrophor Ointment (Mineral Oil/Hydrophil Petrolat) 454 Gm Oint...g. 454 Gm TP PRN PRN Zetia (Ezetimibe) 10 Mg Tablet 1 Tab PO DAILY 30 Days Donepezil Hcl 10 Mg Tablet 1 Tab PO DAILY Clopidogrel (Clopidogrel Bisulfate) 75 Mg Tablet 75 Mg PO DAILY Celexa (Citalopram Hydrobromide) 40 Mg Tablet 1 Tab PO DAILY Vitamin D3 (Vitamin D) 25 Mcg Tablet 25 Mcg PO DAILY 1,000 UNITS = 25 MCG Thera Tears (Carboxymethylcellulose Sodium) 15 Ml Drops 1 Drop EACHEYE QID Atenolol 25 Mg Tablet 1 Tab PO DAILY Amlodipine Besylate 5 Mg Tablet 5 Mg PO DAILY Vitals/I & O Vital Sign - Last 24 Hours 10/13/21 10/13/21 10/13/21 10/13/21 10:53 12:00 16:00 18:01 Temp 99.1 99.9 99.1 99.9 Pulse 96 92 Resp 22 24 B/P (MAP) 118/53 (74) 122/55 (77) Pulse Ox 100 96 96 96 O2 Delivery Nasal Cannula Nasal Cannula Nasal Cannula Nasal Cannula O2 Flow Rate 2.0 1.0 1.0 1.0 10/13/21 10/13/21 10/14/21 10/14/21 20:00 20:00 00:00 04:00 Temp 99.3 98.9 98.9 99.3 98.9 98.9 Pulse 69 70 70 Resp 14 16 18 B/P (MAP) 115/50 (71) 124/53 (76) 126/59 (81) Pulse Ox 99 100 100 O2 Delivery Nasal Cannula Nasal Cannula Nasal Cannula Nasal Cannula O2 Flow Rate 1.0 1.0 1.0 1.0 10/14/21 10/14/21 07:50 08:00 Temp 99.1 99.1 Pulse 69 Resp 23 B/P (MAP) 139/56 (83) Pulse Ox 97 O2 Delivery Nasal Cannula Nasal Cannula O2 Flow Rate 1.0 1.0 Intake and Output 10/13/21 10/13/21 10/14/21 15:00 23:00 07:00 Intake Total 0 ml Output Total 450 ml 675 ml Balance -450 ml -675 ml Justicifation of Admission Dx: Justifications for Admission: Justification of Admission Dx: N/A BRIDGETTE ROLAND MD Oct 14, 2021 09:12
[2021-10-14] MEDS: levETIRAcetam 500 MG in IV DEXTROSE 5% 100ML 100 ML IV SCH ×2 (09:29→20:47)
[2021-10-14 12:19] VITALS: BP 138/57
--- NOTE | 2021-10-14 14:47 | PDOC ---
[employer] PROGRESS NOTE Date of Service DOS: DATE: 10/14/21 TIME: 14:45 Chief Complaint Chief Complaint A/P: Acute hypoxic respiratory failure - likely due to aspiration pneumonia from vomiting likely from symptomatic 3rd degree heart block. Will cont vent, wean O2 as tolerated. Unasyn for aspiration pneumonia coverage. Consult pulmonology for vent management assistance PEA arrest - likely from above aspiration event, complicated by 3rd degree heart block. ROSC obtained Third degree heart block - s/p PPM generator change with apparent recovery of heart rate. Cont dopamine. ICU admission Abnormal chest CT - likely due to due to pneumonia Nausea and vomiting - likely from CHB, will treat for pneumonia, will rule out other infectious etiology. IV anti-emetics Fall - second fall in a week. If neurologic recovery occurs needs gait testing, though likely this was related to cardiac event Closed head injury - posterior scalp abrasion, local wound care. Monitor neurologic function. Anemia - will check iron studies, likely of chronic disease Thrombocytopenia - unclear etiology, will trend EDWIN - likely vasomotor nephropathy from arrest. Family does not know of any history of CKD, will order [facility] records Lactic acidosis - likely due to hypoxia, will trend Transaminitis - likely related to shock liver, will monitor Elevated trop - demand ischemia from 3rd degree heart block, likely, will trend out. HTN - will add back home meds as BP allows HLD - statin when taking PO FEN - NPO. NGT feed Vital AF @ 40 ml/hr and free water flushes 200 ml q 6 PPX - pepcid, lovenox CODE - partial - no chest compressions Dispo - ICU. Patient family arrived next 24 hours to discuss ongoing plan. Addendum: I have discussed with bryn Painting and Seng Felix about overall goals of care and they have requested to "wait another week". Have advised him of the potential risks of ventilator associated pneumonia bedsores and other potential infections and have recommended after 14 days on the ventilator to consider tracheostomy and feeding tube if they want to continue care also offered palliative care and hospice care they are still precontemplative and do not want to move forward with any surgical procedures. They have made it clear if he does have a cardiac arrest he would not like chest compressions and would not like to be on the ventilator for "a year History of Present Illness History of Present Illness Mr Cerda is an 86-year-old male with PMHx HTN, HLD s/p PPM who presented to [facility] in [place] via EMS after a PEA cardiac arrest. Per his son, he was at home and in the presence of son and son-in-law when he was observed actively choking and subsequently falling on the floor with significant amount of emesis that was nonbloody and nonbilious in nature. Son reports vomit with recently ingested food and laying his father on his side and cleaning out his mouth while son-in-law called EMS. On EMS arrival ~3 minutes later, patient was unresponsive and cyanotic and they intubated. En-route patient was found to be pulseless in PEA and appropriate ACLS measures were followed with application of Howard device for chest compressions, and per report had a total of x2 epinephrine administered via left tibial IO. After approximately 5 minutes ROSC was obtained. In ED was noted unresponsive with pinpoint pupils and GCS 3 with no purposeful movements. Per EMS report and son the patient takes Plavix, lisinopril, rosuvastatin and citalopram at home. He has a pacemaker per son, which was placed in [place] over 10 years ago, and the son says he follows at [facility], doesn't know about pacer follow up. Per son he fell 4 days prior and [facility], noted on his occiput. Family notes he has been more weak than usual over past 72 hours, no travel or sick contacts. Is fully vaccinated against COVID 19. EKG appeared with third-degree heart block at 42 bpm, left axis deviation, T wave inversion noted in lead I, III, V2-6, no STEMI Vitals obtained concerning for marked bradycardia and no respiratory effort Labs with WBC 9.1, Hb 11.4, platelets 128, ABG 7.2 7/42/459 on 100% FiO2, rapid COVID-19 negative, NA 137, K4.2, BUN 50, CR 2, glucose 247, lactic acid 8.6, calcium 8.6, bilirubin 0.6, AST 131, ALT 157, alkaline phosphatase 90, ammonia 25, albumin 3, troponin 0.134, INR 1.1, urinalysis bland. CT head and neck with no acute abnormalities. CT chest with bibasilar infiltrates and NGT and ETT in good positioning. compliance monitor concerning for third-degree heart block, with rate in the 20s, therefore 1 mg epinephrine administered with minimal improvement in HR, then 1 mg atropine without significant improvement, then dopamine gtt without sustained improvement. 3 L IV fluid administered and unasyn for aspiration pneumonitis. Ultimately was responsive to transcutaneous pacing and after discussion with cardiology he was transferred to [facility] for further care. To research laboratory technician prior to my assessment, had pacemaker generator replaced emergently. Seen in ICU. Discussed with son bedside. 09/23: Afebrile, on vent with FiO2 50%, PEEP 5. Continue dopamine gtt. We will continue Unasyn for aspiration pneumonia. Chest x-ray showed suspected partially consolidated left lower lobe infiltrate superimposed on right lower and bilateral upper lobe multifocal interstitial infiltrate.. Critical care time 30 minutes spent reviewing charts, general labs, reviewing imaging, and discussion with RN. 09/24: Afebrile. On vent with FiO2 40%, PEEP 5. Remains on pressor support. Off dopamine. Will continue Unasyn for pneumonia. Continue to wean off vent. Critical care time 30 minutes spent reviewing charts, general labs, reviewing imaging, discussion with Dr. Mcdaniel. 09/25: Low-grade fever overnight, T-max 100.6 F. On vent with FiO2 35%, PEEP 5. Chest x-ray yesterday showed diffuse increased interstitial opacity likely due to interstitial infiltrate. Continue IV antibiotics. He has been off sedation for the past 24 hours. Platelets have steadily dropped; platelets 89 today. I discussion with daughter and son-in-law by phone about concerns for worsening bruising and, cytopenia. They are agreeable to no chest compressions, as to not cause any further damage that may lead to prolonged intubation. We will continue to wean off ventilator. 30 minutes critical care time spent reviewing charts, reviewing labs, reviewing imaging, discussion with RN, and discussion with Dr. Ortiz. 09/26: Afebrile. On vent with FiO2 35%, PEEP 5. Chest x-ray today showing stable diffuse interstitial infiltrate. Platelets [address] Brand was consulted yesterday; he is discussed with family the likely poor prognosis. Sister wants to fly in from [place] to see him. Family would like DNR but chemical code; son-in-law will discuss with the rest of family. Critical care time 30 minutes spent reviewing chart, reviewing labs, reviewing imaging, discussing with Dr. Ortiz. 09/27: Afebrile; on vent with FiO2 50%, PEEP 5. Off. For 72 hours. Some spontaneous movements noted this morning. I believe family is flying in from [place] to see him prior to making full DNR; chemical code. Critical care time 30 minutes spent reviewing charts, general labs, reviewing imaging, and discussion with RN. 09/28: Febrile overnight, T-max 102.0 F. 09/29: Patient evaluated examined at bedside. Remains off sedation. But still pretty unresponsive. Absent brainstem reflexes. Will attempt to contact family today to see if they are in fact coming in from [place]. Still on Levophed and dopamine. 09/30: Patient evaluated and examined at bedside. Still off sedation and unresponsive. Still on Levophed for blood pressure support. Family supposed to arrive today for discussion of ongoing care. 10/01: Patient evaluated and examined at bedside. Still intubated and unresponsive. Requiring pressors. Talk to patient's son on phone today for 15 minutes discussing advanced care planning. He reported that she has not been able to discuss ongoing care with his sister as she works in the afternoons and he works in the evenings. Provided clinical updates to him told him about no real improvement at this point. Still remains on high ventilator settings. 10/02: Patient evaluated examined at bedside. Still intubated minimally responsive even without sedation. Waiting for son to arrive at bedside for care discussion. Otherwise continuing current plans. I spent 35 minutes critical care time reviewing charts labs imaging and discussion with subspecialist and nursing team. 10/03: Patient evaluated examined at bedside. I discussed with the family yesterday for approximately 35 minutes ongoing care plans. During that time patient did have some extremity movement along with some head movement showing discomfort from the ventilator. With this family would like to continue care for now. I spoke with them again at bedside today and that they would like to continue on until at least tomorrow evening. Still think very poor prognosis. However will honor family wishes. Plan of care discussed with bedside RN. I spent 35 minutes critical care time reviewing charts labs imaging and discussion with specialists and nursing team 10/04: Patient evaluated at bedside. Still with some movements in his extremities. Still intubated minimally responsive despite being off sedation for over a week. Continue discussion of goals with family. 35 minutes critical care time. 10/05: Patient evaluated examined at bedside. Hyponatremic this morning on review does appear his sodium has been creeping up. We will increase free water flushes. Family continues discussing goals of care. Here to provide them any information needed. 33 minutes critical care time 10/06: Overnight no events. NA 149, K3.4, Hb 9.5. No meaningful movement off sedation over a week. 10/07: Overnight afebrile. Withdraws from pain requiring great toe reflex is breathing over the ventilator. Brainstem reflexes intact seems to be anoxic brain injury. discussed with family over the phone the asked for an additional week. I encouraged consideration of comfort care offered tracheostomy and PEG a do not want surgical interventions at this time 10/08: NA 142 today. On vent 35% FiO2 PEEP of 5 O2 saturations 100%. Has doll's eyes no meaningful movement does withdraw from painful stimuli. Babinski bilaterally. Afebrile 10/09: Afebrile overnight. On vent 35% FiO2 PEEP 5 with O2 saturations 96%. Still with no movement today withdrawal from painful stimuli Babinski bilaterally. Meeting at [address] Price from pulmonology, plan to withdraw care on 10/12/2021 when daughter arrives 10/10T-max 100.1 F overnight. On vent 35% FiO2 PEEP 5, O2 saturations 96%. Still with no purposeful movement withdraws from painful stimuli bilateral Babinski 10/11/2021 No acute events overnight. Patient seen and examined bedside. Current vent settings of 12/500/35/5. Patient remains on dopamine for pressors and not on any sedatives. No purposeful movements upon sternal rub. Patient's chart, labs, images were reviewed and discussed with RN 10/12/21 Patient seen and examined bedside. No acute events overnight. Patient extubated this afternoon and appears comfortable. Maintaining his own without any pain. No pressors at this time. Patient's chart, labs, images were reviewed and discussed with RN. 10/14/2021 No acute events overnight. Patient seen and examined bedside. No respiratory distress and appears comfortable. Minimal secretions. Would not recommend PEG tube placement for TPN. Patient may participate with pleasure feedings with assistance if able to wake up and intake food. Family does not want the patient to starve. Pending family discussion for patient pleasure feeding and possibly home hospice. Patient's chart, labs, images were reviewed and discussed with RN Vitals/I&O Vitals/I&O: Vital Signs Date Time Temp Pulse Resp B/P (MAP) Pulse Ox O2 Delivery O2 Flow Rate FiO2 10/14/21 12:19 73 138/57 (84) 99 Nasal Cannula 1.0 10/14/21 08:00 99.1 23 99.1 l I & O 10/13/21 10/13/21 10/14/21 15:00 23:00 07:00 Intake Total 0 ml Output Total 450 ml 675 ml Balance -450 ml -675 ml Physical Exam General: No acute distress Heart: Regular rate Lungs: Crackles Abdomen: Normal bowel sounds Extremities: No clubbing, No cyanosis, No edema, Normal pulses, No tenderness/swelling Skin: Other (Extensive bruising to anterior chest wall) Comment Review of Relevant I have reviewed the following items ivania (where applicable) has been applied. Justifications for Admission Chest Pain Indications Respiratory Distress?: Yes Justification for admission: Patient's respiratory distress as indicated by (SOB/tachypnea/abnormal breathing pattern plus hypoxemia/AMS/other evidence of respiratory compromise such as pulmonary edema on chest x-ray) will need inpatient level of care. Serious Diagnosis?: Yes Justification for admission: Chest pain may be indicative of potentially serious diagnosis/diagnoses Please state condition(s) which will require inpatient level of care for further evaluation and management. Other Justification EMILY HARRIS MD Oct 14, 2021 14:47
--- NOTE | 2021-10-14 16:13 | NUR ---
SS following up with discharge planning. SS reviewed pt chart and discussed with pt RN and physician. Pt is currently requiring oxygen at one liter nasal canula. Pt on IV Keppra. Pt accepted on [facility], ; fax [phone], for home hospice. Pt's family wanting form of nutrition prior to signing consents and discharge. Family reporting that they do not want pt to starve. PEG tube not recommended. Pleasure feeds recommended. Physicians to discuss with pt's family. SS will continue to follow for discharge planning.
[2021-10-14 16:28] VITALS: BP 134/58
--- NOTE | 2021-10-14 17:51 | NUR ---
Wound Care Wound Type/Assessment: Wound care follow up for skin tear to R upper chest, knee and ear. Left knee and L ear wounds are healed. R upper chest skin tear is improved, small red and granulated, small amount of bleeding noted. Pt also found to have a left posterior thigh, serum filled, intact blister of unknown origin, periwound skin clear and intact. Pt also has a small, circular DTI on left area of sacrum, purplish red in color, non-blanchable, no open areas noted. All wounds cleaned, measured and photographed. Treatment Recommendations/Plan: Cleanse wounds, apply xeroform and foam to R chest and L posterior thigh, change every 3 days. Aquacel foam dressing to sacrum, change every 3 days and prn if soiled. Education provided: to RNMaite and family, pt not responsive Offloading surface/device: ICU bed, purple wedge. Pt repositioned onto R side at this time. Recommended Referrals/Tests: na Discharge Recommendations for dressings: see treatment plan above
[2021-10-14 19:44] VITALS: BP 107/58
[2021-10-15] VITALS (7 sets, daily range): BP systolic 123–154; BP diastolic 54–79
--- NOTE | 2021-10-15 09:12 | PDOC ---
PULMONARY PROGRESS NOTES DATE: 10/15/21 TIME: 09:12 Subjective Patient extubated 10/12 Patient appears to be comfortable Vitals Vital Signs Date Time Temp Pulse Resp B/P (MAP) Pulse Ox O2 Delivery O2 Flow Rate FiO2 10/15/21 08:00 98.9 70 20 143/55 (84) 100 Nasal Cannula 1.0 98.9 HEENT: Other (nc at orally intubated nose clear neck no lad no thyromegaly) Lungs: Crackles Cardiovascular: S1, S2 Abdomen: Soft Extremities: Other (Some edema) Skin: Warm Medications Active Scripts Medications Dose Route/Sig Max Daily Dose Days Date Category Dose Instructions Urea 227 Gm Cream..g. 1 Tata TP DAILY 30 09/23/21 Reported Crestor (Rosuvastatin Calcium) 40 Mg Tablet 1 Tab PO DAILY 09/23/21 Reported Namenda (Memantine Hcl) 10 Mg Tablet 1 Tab PO BID 09/23/21 Reported Pantoprazole Sodium (Pantoprazole Sodium) 40 Mg Tablet.dr 40 Mg PO DAILYAC 09/23/21 Reported Lisinopril 40 Mg Tablet 0.5 Tab PO DAILY 09/23/21 Reported Levothyroxine Sodium 50 Mcg Tablet 1 Tab PO DAILY 09/23/21 Reported Xolegel (Ketoconazole) 45 Gm Gel..gram. 1 Tata TP BID 30 09/23/21 Reported Isosorbide Mononitrate Er (Isosorbide Mononitrate) 60 Mg Tab.er.24h 1 Tab PO DAILY 09/23/21 Reported Hydrophor Ointment (Mineral Oil/Hydrophil Petrolat) 454 Gm Oint...g. 454 Gm TP PRN PRN 09/23/21 Reported Zetia (Ezetimibe) 10 Mg Tablet 1 Tab PO DAILY 30 09/23/21 Reported Donepezil Hcl 10 Mg Tablet 1 Tab PO DAILY 09/23/21 Reported Clopidogrel (Clopidogrel Bisulfate) 75 Mg Tablet 75 Mg PO DAILY 09/23/21 Reported Celexa (Citalopram Hydrobromide) 40 Mg Tablet 1 Tab PO DAILY 09/23/21 Reported Vitamin D3 (Vitamin D) 25 Mcg Tablet 25 Mcg PO DAILY 09/23/21 Reported 1,000 UNITS = 25 MCG Thera Tears (Carboxymethylcellulose Sodium) 15 Ml Drops 1 Drop EACHEYE QID 09/23/21 Reported Atenolol 25 Mg Tablet 1 Tab PO DAILY 09/23/21 Reported Amlodipine Besylate 5 Mg Tablet 5 Mg PO DAILY 09/23/21 Reported Comments cxr reviewed 09/28 Resolved previously seen diffuse interstitial infiltrates secondary to CHF Impression . IMPRESSION: 1. Acute hypoxemic respiratory failure secondary to complete heart block. 2. 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 3. Acute kidney injury. 4. Elevated liver chemistries. 5. Non-ST segment elevation myocardial infarction. 6. Severe protein malnutrition, present upon admission. 7. Respiratory alkalosis. Minute ventilation adjust 8. Patient does assist ventilator, brainstem function intact 9. Possible seizures 10. Anoxic brain injury Plan . Updated 10/15 Family wants PEG tube placement We will place PEG, discharge with hospice, or to [facility] updated 10/14 Discussed with social welfare administrator We will need to discuss options with family. I will discuss with Dr. Lara, and hospitalist, may be the 3 of us could talk to the family all at once I am available anytime tomorrow Updated 10/13 Patient extubated yesterday Discussed with neurologist, I do not recommend initiating tube feeding Recommend palliative care, Discussed with social service and RN CT MERCEDES MD Oct 15, 2021 09:12
--- NOTE | 2021-10-15 09:22 | PDOC ---
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 Subjective None Objective Vital Signs Date Time Temp Pulse Resp B/P (MAP) Pulse Ox O2 Delivery O2 Flow Rate FiO2 10/15/21 08:00 98.9 70 20 143/55 (84) 100 Nasal Cannula 1.0 98.9 Intake and Output 10/15/21 07:00 Output Total 1825 ml Balance -1825 ml Output Urine Total 1825 ml PHYSICAL EXAM Appears comfortable Extubated, eyes closed, no response to voice, postures a little to pain PERRL. CN: no focal findings. Muscle tone: normal. Muscle strength: Slight withdrawal to pain on the right DTR: 1+ Plantar reflex: Silent Gait: not examined. Sensory exam: Not cooperative. Cerebellar: Not cooperative Review of Relevant I have reviewed the following items ivania (where applicable) has been applied. Medications Current Medications Fentanyl Citrate 30 ml @ 2.5 mls/hr CONT PRN IV SEE PROTOCOL Last administered on 09/24/21at 04:21; Start 09/22/21 at 18:00; Stop 10/06/21 at 08:56; Status DC Midazolam HCl 100 ml @ 1 mls/hr CONT PRN IV SEE PROTOCOL Last administered on 09/24/21at 04:21; Start 09/22/21 at 18:00; Stop 10/06/21 at 08:56; Status DC Propofol 100 ml @ 2.244 mls/ hr CONT PRN IV PER PROTOCOL Last administered on 09/22/21at 17:39; Start 09/22/21 at 18:00; Stop 10/06/21 at 08:56; Status DC Sodium Chloride 500 ml @ 500 mls/hr 1X PRN PRN IV SEE COMMENTS; Start 09/22/21 at 18:00 Atropine Sulfate (ATROPINE 0.5mg SYRINGE) 0.5 mg PRN Q5MIN PRN IV SEE COMMENTS; Start 09/22/21 at 18:00 Famotidine (Pepcid Vial) 20 mg BID IVP Last administered on 09/22/21at 21:58; Start 09/22/21 at 21:00; Stop 09/23/21 at 08:32; Status DC Midazolam HCl (Versed) 2 mg 1X ONCE IV Last administered on 09/22/21at 18:15; Start 09/22/21 at 18:15; Stop 09/22/21 at 18:16; Status DC Lidocaine/ Epinephrine (LIDOCAINE 2%-EPI 1:100,000 multi-dose) 20 ml 1X ONCE IJ Last administered on 09/22/21at 18:17; Start 09/22/21 at 18:15; Stop 09/22/21 at 18:16; Status DC Cefazolin Sodium (Ancef) 1 gm 1X ONCE IVP Last administered on 09/22/21at 18:15; Start 09/22/21 at 18:15; Stop 09/22/21 at 18:16; Status DC Propofol 100 ml @ 2.244 mls/ hr CONT PRN IV PER PROTOCOL; Start 09/22/21 at 18:15; Status UNV Ondansetron HCl (Zofran) 4 mg PRN Q4HRS PRN IVP NAUSEA/VOMITING; Start 09/22/21 at 18:45 Acetaminophen (Tylenol Supp) 650 mg PRN Q6HRS PRN IN MILD PAIN / TEMP > 100.3'F Last administered on 09/25/21at 00:26; Start 09/22/21 at 18:45 Bisacodyl (Dulcolax Supp) 10 mg PRN DAILY PRN IN CONSTIPATION; Start 09/22/21 at 18:45 Promethazine HCl (Phenergan Supp) 12.5 mg PRN Q6HRS PRN IN NAUSEA/VOMITING; Start 09/22/21 at 18:45 Ampicillin Sodium/ Sulbactam Sodium 3 gm/Sodium Chloride 100 ml @ 200 mls/hr Q6HRS IV Last administered on 09/25/21at 12:21; Start 09/22/21 at 18:45; Stop 09/25/21 at 16:21; Status DC Dopamine HCl/ Dextrose 250 ml @ 28.05 mls/ hr CONT PRN IV SEE I/O RECORD Last administered on 09/23/21at 08:44; Start 09/22/21 at 18:45; Stop 10/13/21 at 09:59; Status DC Lidocaine/ Epinephrine (LIDOCAINE 2%-EPI 1:100,000 multi-dose) 20 ml STK-MED ONCE .ROUTE ; Start 09/22/21 at 18:53; Stop 09/22/21 at 18:53; Status DC Midazolam HCl (Versed) 2 mg STK-MED ONCE .ROUTE ; Start 09/22/21 at 18:53; Stop 09/22/21 at 18:53; Status DC Cefazolin Sodium (Ancef) 1 gm STK-MED ONCE IVP ; Start 09/22/21 at 18:53; Stop 09/22/21 at 18:53; Status DC Fentanyl Citrate (Fentanyl 2ml Vial) 25 mcg PRN Q3HRS PRN IVP SEVERE PAIN 7-10; Start 09/22/21 at 21:30; Status Cancel Famotidine (Pepcid Vial) 20 mg DAILY IVP Last administered on 10/03/21at 08:56; Start 09/23/21 at 09:00; Stop 10/03/21 at 11:35; Status DC Heparin Sodium (Porcine) (Heparin Sodium) 5,000 unit Q12HR SQ Last administered on 09/23/21at 20:45; Start 09/23/21 at 21:00; Stop 09/23/21 at 22:59; Status DC Norepinephrine Bitartrate 8 mg/ Dextrose 258 ml @ 13.971 mls/ hr CONT PRN IV PER PROTOCOL Last administered on 09/23/21at 22:14; Start 09/23/21 at 11:45; Stop 10/13/21 at 09:59; Status DC Ampicillin Sodium/ Sulbactam Sodium 3 gm/Sodium Chloride 100 ml @ 200 mls/hr Q12HR IV Last administered on 09/28/21at 07:52; Start 09/25/21 at 21:00; Stop 09/28/21 at 13:20; Status DC Levetiracetam 500 mg/Dextrose 105 ml @ 420 mls/hr Q12HR IV Last administered on 10/14/21at 20:47; Start 09/26/21 at 04:00 Furosemide (Lasix) 20 mg 1X ONCE IVP Last administered on 09/26/21at 13:15; Start 09/26/21 at 13:15; Stop 09/26/21 at 13:16; Status DC Ampicillin Sodium/ Sulbactam Sodium 3 gm/Sodium Chloride 100 ml @ 200 mls/hr Q6HRS IV Last administered on 10/06/21at 05:59; Start 09/28/21 at 18:00; Stop 10/06/21 at 08:56; Status DC Acetaminophen (Tylenol) 650 mg PRN Q6HRS PRN PEG MILD PAIN / TEMP > 100.3'F Last administered on 09/30/21at 20:52; Start 09/29/21 at 09:45; Stop 10/13/21 at 10:00; Status DC Famotidine (Pepcid Vial) 20 mg BID IVP Last administered on 10/14/21at 20:47; Start 10/03/21 at 21:00 Morphine Sulfate (Morphine Sulfate) 2 mg PRN Q15MIN PRN IV PAIN Last administered on 10/13/21at 18:01; Start 10/12/21 at 14:30 Lorazepam (Ativan Inj) 2 mg PRN Q1HR PRN IVP ANXIETY / AGITATION Last administered on 10/13/21at 18:07; Start 10/12/21 at 14:30 Scopolamine (Transderm-Scop) 1 patch Q3DAYS TD Last administered on 10/13/21at 10:46; Start 10/13/21 at 09:00 Active Scripts Active Reported Urea 227 Gm Cream..g. 1 Tata TP DAILY 30 Days Crestor (Rosuvastatin Calcium) 40 Mg Tablet 1 Tab PO DAILY Namenda (Memantine Hcl) 10 Mg Tablet 1 Tab PO BID Pantoprazole Sodium (Pantoprazole Sodium) 40 Mg Tablet.dr 40 Mg PO DAILYAC Lisinopril 40 Mg Tablet 0.5 Tab PO DAILY Levothyroxine Sodium 50 Mcg Tablet 1 Tab PO DAILY Xolegel (Ketoconazole) 45 Gm Gel..gram. 1 Tata TP BID 30 Days Isosorbide Mononitrate Er (Isosorbide Mononitrate) 60 Mg Tab.er.24h 1 Tab PO D AILY Hydrophor Ointment (Mineral Oil/Hydrophil Petrolat) 454 Gm Oint...g. 454 Gm TP PRN PRN Zetia (Ezetimibe) 10 Mg Tablet 1 Tab PO DAILY 30 Days Donepezil Hcl 10 Mg Tablet 1 Tab PO DAILY Clopidogrel (Clopidogrel Bisulfate) 75 Mg Tablet 75 Mg PO DAILY Celexa (Citalopram Hydrobromide) 40 Mg Tablet 1 Tab PO DAILY Vitamin D3 (Vitamin D) 25 Mcg Tablet 25 Mcg PO DAILY 1,000 UNITS = 25 MCG Thera Tears (Carboxymethylcellulose Sodium) 15 Ml Drops 1 Drop EACHEYE QID Atenolol 25 Mg Tablet 1 Tab PO DAILY Amlodipine Besylate 5 Mg Tablet 5 Mg PO DAILY Vitals/I & O Vital Sign - Last 24 Hours 10/14/21 10/14/21 10/14/21 10/14/21 12:19 16:28 19:44 20:00 Temp 98.8 98.8 98.8 98.8 Pulse 73 74 77 Resp 24 25 B/P (MAP) 138/57 (84) 134/58 (83) 107/58 (74) Pulse Ox 99 99 87 O2 Delivery Nasal Cannula Nasal Cannula Nasal Cannula Nasal Cannula O2 Flow Rate 1.0 1.0 1.0 1.0 10/15/21 10/15/21 10/15/21 00:00 04:00 08:00 Temp 98.0 97.9 98.9 98.0 97.9 98.9 Pulse 69 69 70 Resp 25 12 20 B/P (MAP) 147/65 (92) 143/62 (89) 143/55 (84) Pulse Ox 98 98 100 O2 Delivery Nasal Cannula Nasal Cannula Nasal Cannula O2 Flow Rate 1.0 1.0 1.0 Intake and Output 10/14/21 10/14/21 10/15/21 15:00 23:00 07:00 Output Total 250 ml 700 ml 875 ml Balance -250 ml -700 ml -875 ml Justicifation of Admission Dx: Justifications for Admission: Justification of Admission Dx: N/A BRIDGETTE ROLAND MD Oct 15, 2021 09:22
[2021-10-15] MEDS: FAMOTIDINE 20 MG/2 ML VIAL IVP SCH ×2 (11:14→20:45)
[2021-10-15] MEDS: levETIRAcetam 500 MG in IV DEXTROSE 5% 100ML 100 ML IV SCH ×2 (11:18→20:46)
--- NOTE | 2021-10-15 11:49 | PDOC ---
[employer] PROGRESS NOTE Date of Service DOS: DATE: 10/15/21 TIME: 11:48 Chief Complaint Chief Complaint A/P: Acute hypoxic respiratory failure - likely due to aspiration pneumonia from vomiting likely from symptomatic 3rd degree heart block. Will cont vent, wean O2 as tolerated. Unasyn for aspiration pneumonia coverage. Consult pulmonology for vent management assistance PEA arrest - likely from above aspiration event, complicated by 3rd degree heart block. ROSC obtained Third degree heart block - s/p PPM generator change with apparent recovery of heart rate. Cont dopamine. ICU admission Abnormal chest CT - likely due to due to pneumonia Nausea and vomiting - likely from CHB, will treat for pneumonia, will rule out other infectious etiology. IV anti-emetics Fall - second fall in a week. If neurologic recovery occurs needs gait testing, though likely this was related to cardiac event Closed head injury - posterior scalp abrasion, local wound care. Monitor neurologic function. Anemia - will check iron studies, likely of chronic disease Thrombocytopenia - unclear etiology, will trend EDWIN - likely vasomotor nephropathy from arrest. Family does not know of any history of CKD, will order [facility] records Lactic acidosis - likely due to hypoxia, will trend Transaminitis - likely related to shock liver, will monitor Elevated trop - demand ischemia from 3rd degree heart block, likely, will trend out. HTN - will add back home meds as BP allows HLD - statin when taking PO FEN - NPO. NGT feed Vital AF @ 40 ml/hr and free water flushes 200 ml q 6 PPX - pepcid, lovenox CODE - partial - no chest compressions Dispo - ICU. Patient family arrived next 24 hours to discuss ongoing plan. Addendum: I have discussed with bryn Painting and Seng Felix about overall goals of care and they have requested to "wait another week". Have advised him of the potential risks of ventilator associated pneumonia bedsores and other potential infections and have recommended after 14 days on the ventilator to consider tracheostomy and feeding tube if they want to continue care also offered palliative care and hospice care they are still precontemplative and do not want to move forward with any surgical procedures. They have made it clear if he does have a cardiac arrest he would not like chest compressions and would not like to be on the ventilator for "a year History of Present Illness History of Present Illness Mr Cerda is an 86-year-old male with PMHx HTN, HLD s/p PPM who presented to [facility] in [place] via EMS after a PEA cardiac arrest. Per his son, he was at home and in the presence of son and son-in-law when he was observed actively choking and subsequently falling on the floor with significant amount of emesis that was nonbloody and nonbilious in nature. Son reports vomit with recently ingested food and laying his father on his side and cleaning out his mouth while son-in-law called EMS. On EMS arrival ~3 minutes later, patient was unresponsive and cyanotic and they intubated. En-route patient was found to be pulseless in PEA and appropriate ACLS measures were followed with application of Howard device for chest compressions, and per report had a total of x2 epinephrine administered via left tibial IO. After approximately 5 minutes ROSC was obtained. In ED was noted unresponsive with pinpoint pupils and GCS 3 with no purposeful movements. Per EMS report and son the patient takes Plavix, lisinopril, rosuvastatin and citalopram at home. He has a pacemaker per son, which was placed in [place] over 10 years ago, and the son says he follows at [facility], doesn't know about pacer follow up. Per son he fell 4 days prior and [facility] noted [facility] his [facility]iput. Family notes he has been more weak than usual over past 72 hours, no travel or sick contacts. Is fully vaccinated against COVID 19. EKG appeared with third-degree heart block at 42 bpm, left axis deviation, T wave inversion noted in lead I, III, V2-6, no STEMI Vitals obtained concerning for marked bradycardia and no respiratory effort Labs with WBC 9.1, Hb 11.4, platelets 128, ABG 7.2 7/42/459 on 100% FiO2, rapid COVID-19 negative, NA 137, K4.2, BUN 50, CR 2, glucose 247, lactic acid 8.6, calcium 8.6, bilirubin 0.6, AST 131, ALT 157, alkaline phosphatase 90, ammonia 25, albumin 3, troponin 0.134, INR 1.1, urinalysis bland. CT head and neck with no acute abnormalities. CT chest with bibasilar infiltrates and NGT and ETT in good positioning. porter bath concerning for third-degree heart block, with rate in the 20s, therefore 1 mg epinephrine administered with minimal improvement in HR, then 1 mg atropine without significant improvement, then dopamine gtt without sustained improvement. 3 L IV fluid administered and unasyn for aspiration pneumonitis. Ultimately was responsive to transcutaneous pacing and after discussion with cardiology he was transferred to [facility] for further care. To soap slabber prior to my assessment, had pacemaker generator replaced emergently. Seen in ICU. Discussed with son bedside. 09/23: Afebrile, on vent with FiO2 50%, PEEP 5. Continue dopamine gtt. We will continue Unasyn for aspiration pneumonia. Chest x-ray showed suspected partially consolidated left lower lobe infiltrate superimposed on right lower and bilateral upper lobe multifocal interstitial infiltrate.. Critical care time 30 minutes spent reviewing charts, general labs, reviewing imaging, and discussion with RN. 09/24: Afebrile. On vent with FiO2 40%, PEEP 5. Remains on pressor support. Off dopamine. Will continue Unasyn for pneumonia. Continue to wean off vent. Critical care time 30 minutes spent reviewing charts, general labs, reviewing imaging, discussion with Dr. Mcdaniel. 09/25: Low-grade fever overnight, T-max 100.6 F. On vent with FiO2 35%, PEEP 5. Chest x-ray yesterday showed diffuse increased interstitial opacity likely due to interstitial infiltrate. Continue IV antibiotics. He has been off sedation for the past 24 hours. Platelets have steadily dropped; platelets 89 today. I discussion with daughter and son-in-law by phone about concerns for worsening bruising and, cytopenia. They are agreeable to no chest compressions, as to not cause any further damage that may lead to prolonged intubation. We will continue to wean off ventilator. 30 minutes critical care time spent reviewing charts, reviewing labs, reviewing imaging, discussion with RN, and discussion with Dr. Ortiz. 09/26: Afebrile. On vent with FiO2 35%, PEEP 5. Chest x-ray today showing stable diffuse interstitial infiltrate. Platelets [address] Brand was consulted yesterday; he is discussed with family the likely poor prognosis. Sister wants to fly in from [place] to see him. Family would like DNR but chemical code; son-in-law will discuss with the rest of family. Critical care time 30 minutes spent reviewing chart, reviewing labs, reviewing imaging, discussing with Dr. Ortiz. 09/27: Afebrile; on vent with FiO2 50%, PEEP 5. Off. For 72 hours. Some spontaneous movements noted this morning. I believe family is flying in from [place] to see him prior to making full DNR; chemical code. Critical care time 30 minutes spent reviewing charts, general labs, reviewing imaging, and discussion with RN. 09/28: Febrile overnight, T-max 102.0 F. 09/29: Patient evaluated examined at bedside. Remains off sedation. But still pretty unresponsive. Absent brainstem reflexes. Will attempt to contact family today to see if they are in fact coming in from [place]. Still on Levophed and dopamine. 09/30: Patient evaluated and examined at bedside. Still off sedation and unresponsive. Still on Levophed for blood pressure support. Family supposed to arrive today for discussion of ongoing care. 10/01: Patient evaluated and examined at bedside. Still intubated and unresponsive. Requiring pressors. Talk to patient's son on phone today for 15 minutes discussing advanced care planning. He reported that she has not been able to discuss ongoing care with his sister as she works in the afternoons and he works in the evenings. Provided clinical updates to him told him about no real improvement at this point. Still remains on high ventilator settings. 10/02: Patient evaluated examined at bedside. Still intubated minimally responsive even without sedation. Waiting for son to arrive at bedside for care discussion. Otherwise continuing current plans. I spent 35 minutes critical care time reviewing charts labs imaging and discussion with subspecialist and nursing team. 10/03: Patient evaluated examined at bedside. I discussed with the family yesterday for approximately 35 minutes ongoing care plans. During that time patient did have some extremity movement along with some head movement showing discomfort from the ventilator. With this family would like to continue care for now. I spoke with them again at bedside today and that they would like to continue on until at least tomorrow evening. Still think very poor prognosis. However will honor family wishes. Plan of care discussed with bedside RN. I spent 35 minutes critical care time reviewing charts labs imaging and discussion with specialists and nursing team 10/04: Patient evaluated at bedside. Still with some movements in his extremities. Still intubated minimally responsive despite being off sedation for over a week. Continue discussion of goals with family. 35 minutes critical care time. 10/05: Patient evaluated examined at bedside. Hyponatremic this morning on review does appear his sodium has been creeping up. We will increase free water flushes. Family continues discussing goals of care. Here to provide them any information needed. 33 minutes critical care time 10/06: Overnight no events. NA 149, K3.4, Hb 9.5. No meaningful movement off sedation over a week. 10/07: Overnight afebrile. Withdraws from pain requiring great toe reflex is breathing over the ventilator. Brainstem reflexes intact seems to be anoxic brain injury. discussed with family over the phone the asked for an additional week. I encouraged consideration of comfort care offered tracheostomy and PEG a do not want surgical interventions at this time 10/08: NA 142 today. On vent 35% FiO2 PEEP of 5 O2 saturations 100%. Has doll's eyes no meaningful movement does withdraw from painful stimuli. Babinski bilaterally. Afebrile 10/09: Afebrile overnight. On vent 35% FiO2 PEEP 5 with O2 saturations 96%. Still with no movement today withdrawal from painful stimuli Babinski bilaterally. Meeting at [address] Price from pulmonology, plan to withdraw care on 10/12/2021 when daughter arrives 10/10T-max 100.1 F overnight. On vent 35% FiO2 PEEP 5, O2 saturations 96%. Still with no purposeful movement withdraws from painful stimuli bilateral Babinski 10/11/2021 No acute events overnight. Patient seen and examined bedside. Current vent settings of 12/500/35/5. Patient remains on dopamine for pressors and not on any sedatives. No purposeful movements upon sternal rub. Patient's chart, labs, images were reviewed and discussed with RN 10/12/21 Patient seen and examined bedside. No acute events overnight. Patient extubated this afternoon and appears comfortable. Maintaining his own without any pain. No pressors at this time. Patient's chart, labs, images were reviewed and discussed with RN. 10/14/2021 No acute events overnight. Patient seen and examined bedside. No respiratory distress and appears comfortable. Minimal secretions. Would not recommend PEG tube placement for TPN. Patient may participate with pleasure feedings with assistance if able to wake up and intake food. Family does not want the patient to starve. Pending family discussion for patient pleasure feeding and possibly home hospice. Patient's chart, labs, images were reviewed and discussed with RN 10/15/2021 No acute events overnight. Patient seen and examined bedside appears comfortable. No respiratory distress or copious secretions. Apparently, family does want a PEG tube placed. We will plan on home with hospice after PEG tube is in place. GI consulted. Patient's chart, labs, images were reviewed and discussed with RN Vitals/I&O Vitals/I&O: Vital Signs Date Time Temp Pulse Resp B/P (MAP) Pulse Ox O2 Delivery O2 Flow Rate FiO2 10/15/21 08:00 98.9 70 20 143/55 (84) 100 Nasal Cannula 1.0 98.9 I & O 10/14/21 10/14/21 10/15/21 15:00 23:00 07:00 Output Total 250 ml 700 ml 875 ml Balance -250 ml -700 ml -875 ml Physical Exam General: No acute distress Heart: Regular rate Lungs: Crackles Abdomen: Normal bowel sounds Extremities: No clubbing, No cyanosis, No edema, Normal pulses, No tenderness/swelling Skin: Other (Extensive bruising to anterior chest wall) Comment Review of Relevant I have reviewed the following items ivania (where applicable) has been applied. Justifications for Admission Chest Pain Indications Respiratory Distress?: Yes Justification for admission: Patient's respiratory distress as indicated by (SOB/tachypnea/abnormal breathing pattern plus hypoxemia/AMS/other evidence of respiratory compromise such as pulmonary edema on chest x-ray) will need inpatient level of care. Serious Diagnosis?: Yes Justification for admission: Chest pain may be indicative of potentially serious diagnosis/diagnoses Please state condition(s) which will require inpatient level of care for further evaluation and management. Other Justification EMILY HARRIS MD Oct 15, 2021 11:49
--- NOTE | 2021-10-15 13:16 | PDOC2 ---
GI CONSULT Date of Service: DATE: 10/15/21 TIME: 13:01 Reason For Consult: needs PEG HPI: HPI: 86 y/o male who presented to [facility] via EMS after choking and vomiting at home w/ PEA cardiac arrest and was transferred here on 09/22. Unfortunately has anoxic encephalopathy and we are asked to see re: possible PEG placement. Other notes reviewed - palliative care initially recommended - currently family wants PEG, then plans for home w/ hospice. D/w nurse - Dr. Ortiz to speak with daughter later today. PMH: PMH: HTN, HLD pacemaker FH: Family History: CAD Social History: Smoke: No ALCOHOL: none Drugs: None ROS: unable to obtain Vitals: Vitals: Vital Signs Date Time Temp Pulse Resp B/P (MAP) Pulse Ox O2 Delivery O2 Flow Rate FiO2 10/15/21 12:00 98.3 70 20 133/58 (83) 99 Nasal Cannula 98.3 Labs: Labs: see EMR Allergies: Coded Allergies: bee venom protein (honey bee) (Verified Allergy, Severe, 09/23/21) aspirin (Verified Allergy, Intermediate, 09/22/21) cholestyramine (Verified Allergy, Intermediate, 09/23/21) hydrochlorothiazide (Verified Allergy, Intermediate, 09/23/21) Medications: see EMR Imaging: Imaging: CT head, C-spine, thorax 09/22 IMPRESSION: No evidence for acute intracranial abnormality. Volume loss and microvascular disease. Impression: No evidence of acute cervical spine fracture or subluxation. Degenerative changes noted. Procedure 09/22 CONCLUSION 1. Successful dual-chamber pacemaker generator change for battery depletion and resultant cardiac arrest. 2. This was a complex case due to the patient's cardiac arrest and requiring emergent generator change. Echo 09/23 <Conclusion> The left ventricular systolic function is mildly decreased. EF 45% Septal motion suggestive of prior infarct and conduction defect. Otherwise, mild global hypokinesis. There is a pacing lead noted in the RA/RV. Doppler and Color Flow revealed mild tricuspid regurgitation. Estimated PAP 31- 35 mmHg. CXR 09/28 IMPRESSION: 1. Resolution of previously demonstrated diffuse interstitial prominence. There is interstitial left lower lobe atelectasis or interstitial infiltrate. 2. Support lines and tubes, described above. PE: GEN: appears chronically ill HEENT: Atraumatic, eyes closed LUNGS: clear anteriorly HEART: RRR ABD: NABS, S/ND/NT EXTREMITY: No edema SKIN: No rashes, no jaundice NEURO/PSYCH: not much posturing to pain A/P: A/P: S/p PEA arrest, anoxic encephalopathy Anemia COVID negative 09/28 -- Await ongoing family discussion. Seems not much chance for meaningful recovery ?and also plans for Hospice? - PEG placement unlikely to change outcome. ZOYA WEBBER Oct 15, 2021 13:16
--- NOTE | 2021-10-15 16:30 | NUR ---
SS following up with discharge planning. SS reviewed pt chart and discussed with pt RN. Pt is currently on room air. Pt on IV Keppra. GI consulted for PEG tube. [facility], ; fax [phone], meeting with family at 0900 tomorrow. SS will continue to follow for discharge planning.
[2021-10-15] MEDS: ACETAMINOPHEN 650 MG SUPP.RECT. PR PRN (22:14)
[2021-10-16 02:55] VITALS: BP 137/54
[2021-10-16 07:00] VITALS: BP 155/64
--- NOTE | 2021-10-16 08:17 | PDOC ---
PULMONARY PROGRESS NOTES DATE: 10/16/21 TIME: 08:15 Subjective Patient extubated 10/12 Patient appears to be comfortable Vitals Vital Signs Date Time Temp Pulse Resp B/P (MAP) Pulse Ox O2 Delivery O2 Flow Rate FiO2 10/16/21 07:00 97.9 69 15 155/64 (94) 99 Room Air 97.9 10/15/21 12:00 HEENT: Other (nc at orally intubated nose clear neck no lad no thyromegaly) Lungs: Crackles Cardiovascular: S1, S2 Abdomen: Soft Extremities: Other (Some edema) Skin: Warm Medications Active Scripts Medications Dose Route/Sig Max Daily Dose Days Date Category Dose Instructions Urea 227 Gm Cream..g. 1 Tata TP DAILY 30 09/23/21 Reported Crestor (Rosuvastatin Calcium) 40 Mg Tablet 1 Tab PO DAILY 09/23/21 Reported Namenda (Memantine Hcl) 10 Mg Tablet 1 Tab PO BID 09/23/21 Reported Pantoprazole Sodium (Pantoprazole Sodium) 40 Mg Tablet.dr 40 Mg PO DAILYAC 09/23/21 Reported Lisinopril 40 Mg Tablet 0.5 Tab PO DAILY 09/23/21 Reported Levothyroxine Sodium 50 Mcg Tablet 1 Tab PO DAILY 09/23/21 Reported Xolegel (Ketoconazole) 45 Gm Gel..gram. 1 Tata TP BID 30 09/23/21 Reported Isosorbide Mononitrate Er (Isosorbide Mononitrate) 60 Mg Tab.er.24h 1 Tab PO DAILY 09/23/21 Reported Hydrophor Ointment (Mineral Oil/Hydrophil Petrolat) 454 Gm Oint...g. 454 Gm TP PRN PRN 09/23/21 Reported Zetia (Ezetimibe) 10 Mg Tablet 1 Tab PO DAILY 30 09/23/21 Reported Donepezil Hcl 10 Mg Tablet 1 Tab PO DAILY 09/23/21 Reported Clopidogrel (Clopidogrel Bisulfate) 75 Mg Tablet 75 Mg PO DAILY 09/23/21 Reported Celexa (Citalopram Hydrobromide) 40 Mg Tablet 1 Tab PO DAILY 09/23/21 Reported Vitamin D3 (Vitamin D) 25 Mcg Tablet 25 Mcg PO DAILY 09/23/21 Reported 1,000 UNITS = 25 MCG Thera Tears (Carboxymethylcellulose Sodium) 15 Ml Drops 1 Drop EACHEYE QID 09/23/21 Reported Atenolol 25 Mg Tablet 1 Tab PO DAILY 09/23/21 Reported Amlodipine Besylate 5 Mg Tablet 5 Mg PO DAILY 09/23/21 Reported Comments cxr reviewed 09/28 Resolved previously seen diffuse interstitial infiltrates secondary to CHF Impression . IMPRESSION: 1. Acute hypoxemic respiratory failure secondary to complete heart block. 2. 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 3. Acute kidney injury. 4. Elevated liver chemistries. 5. Non-ST segment elevation myocardial infarction. 6. Severe protein malnutrition, present upon admission. 7. Respiratory alkalosis. Minute ventilation adjust 8. Patient does assist ventilator, brainstem function intact 9. Possible seizures 10. Anoxic brain injury Plan . Updated 10/16 Daughter never showed up yesterday afternoon Discussed with Dr. Cuellar Possible family meeting this morning Appreciate GI input updated 10/15 Family wants PEG tube placement We will place PEG, discharge with hospice, or to fpc updated 10/14 Discussed with social welfare research worker We will need to discuss options with family. I will discuss with Dr. Lara, and hospitalist, may be the 3 of us could talk to the family all at once I am available anytime tomorrow Updated 10/13 Patient extubated yesterday Discussed with neurologist, I do not recommend initiating tube feeding Recommend palliative care, Discussed with social service and RN CT MERCEDES MD Oct 16, 2021 08:17
[2021-10-16] MEDS: FAMOTIDINE 20 MG/2 ML VIAL IVP SCH ×2 (09:00→22:00)
[2021-10-16] MEDS: MORPHINE SULFATE 2 MG/ML INJ. IV PRN ×5 (09:30→18:29)
[2021-10-16] MEDS: levETIRAcetam 500 MG in IV DEXTROSE 5% 100ML 100 ML IV SCH ×2 (10:41→22:00)
[2021-10-16] MEDS: SCOPOLAMINE 1.5MG PATCH. TD SCH (10:41)
[2021-10-16 11:00] VITALS: BP 137/57
--- NOTE | 2021-10-16 11:21 | PDOC ---
Date of Service: DATE: 10/16/21 TIME: 11:17 Objective: Objective: I saw earlier this morning. Hospice meeting w/ family this morning? Apparently family didn't come until 6:00 p.m. last night. D/w nurse - son agreeable to comfort care, daughter concerned w/ starvation per their discussion on Wednesday. Vital Signs: Vital Signs Date Time Temp Pulse Resp B/P (MAP) Pulse Ox O2 Delivery O2 Flow Rate FiO2 10/16/21 10:00 99 Room Air 1.0 10/16/21 07:00 97.9 69 15 155/64 (94) 97.9 PE: GEN: NAD LUNGS: clear anteriorly HEART: RRR ABD: soft, non-distended NEURO/PSYCH: no meaningful movements, no response to sternal rub A/P: Anoxic encephalopathy -- PEG will not alter long-term outcome. Await family meeting. Justicifation of Admission Dx: Justifications for Admission: Justification of Admission Dx: N/A ZOYA WEBBER Oct 16, 2021 11:21
--- NOTE | 2021-10-16 11:35 | PDOC ---
[employer] PROGRESS NOTE Date of Service DOS: DATE: 10/16/21 TIME: 11:34 Chief Complaint Chief Complaint A/P: Acute hypoxic respiratory failure - likely due to aspiration pneumonia from vomiting likely from symptomatic 3rd degree heart block. Will cont vent, wean O2 as tolerated. Unasyn for aspiration pneumonia coverage. Consult pulmonology for vent management assistance PEA arrest - likely from above aspiration event, complicated by 3rd degree heart block. ROSC obtained Third degree heart block - s/p PPM generator change with apparent recovery of heart rate. Cont dopamine. ICU admission Abnormal chest CT - likely due to due to pneumonia Nausea and vomiting - likely from CHB, will treat for pneumonia, will rule out other infectious etiology. IV anti-emetics Fall - second fall in a week. If neurologic recovery occurs needs gait testing, though likely this was related to cardiac event Closed head injury - posterior scalp abrasion, local wound care. Monitor neurologic function. Anemia - will check iron studies, likely of chronic disease Thrombocytopenia - unclear etiology, will trend EDWIN - likely vasomotor nephropathy from arrest. Family does not know of any history of CKD, will order [facility] records Lactic acidosis - likely due to hypoxia, will trend Transaminitis - likely related to shock liver, will monitor Elevated trop - demand ischemia from 3rd degree heart block, likely, will trend out. HTN - will add back home meds as BP allows HLD - statin when taking PO FEN - NPO. NGT feed Vital AF @ 40 ml/hr and free water flushes 200 ml q 6 PPX - pepcid, lovenox CODE - partial - no chest compressions Dispo - ICU. Patient family arrived next 24 hours to discuss ongoing plan. Addendum: I have discussed with bryn Painting and Seng Felix about overall goals of care and they have requested to "wait another week". Have advised him of the potential risks of ventilator associated pneumonia bedsores and other potential infections and have recommended after 14 days on the ventilator to consider tracheostomy and feeding tube if they want to continue care also offered palliative care and hospice care they are still precontemplative and do not want to move forward with any surgical procedures. They have made it clear if he does have a cardiac arrest he would not like chest compressions and would not like to be on the ventilator for "a year History of Present Illness History of Present Illness Mr Cerda is an 86-year-old male with PMHx HTN, HLD s/p PPM who presented to [facility] in [place] via EMS after a PEA cardiac arrest. Per his son, he was at home and in the presence of son and son-in-law when he was observed actively choking and subsequently falling on the floor with significant amount of emesis that was nonbloody and nonbilious in nature. Son reports vomit with recently ingested food and laying his father on his side and cleaning out his mouth while son-in-law called EMS. On EMS arrival ~3 minutes later, patient was unresponsive and cyanotic and they intubated. En-route patient was found to be pulseless in PEA and appropriate ACLS measures were followed with application of Howard device for chest compressions, and per report had a total of x2 epinephrine administered via left tibial IO. After approximately 5 minutes ROSC was obtained. In ED was noted unresponsive with pinpoint pupils and GCS 3 with no purposeful movements. Per EMS report and son the patient takes Plavix, lisinopril, rosuvastatin and citalopram at home. He has a pacemaker per son, which was placed in [place] over 10 years ago, and the son says he follows at [facility], doesn't know about pacer follow up. Per son he fell 4 days prior and [facility] noted [facility] his [facility]iput. Family notes he has been more weak than usual over past 72 hours, no travel or sick contacts. Is fully vaccinated against COVID 19. EKG appeared with third-degree heart block at 42 bpm, left axis deviation, T wave inversion noted in lead I, III, V2-6, no STEMI Vitals obtained concerning for marked bradycardia and no respiratory effort Labs with WBC 9.1, Hb 11.4, platelets 128, ABG 7.2 7/42/459 on 100% FiO2, rapid COVID-19 negative, NA 137, K4.2, BUN 50, CR 2, glucose 247, lactic acid 8.6, calcium 8.6, bilirubin 0.6, AST 131, ALT 157, alkaline phosphatase 90, ammonia 25, albumin 3, troponin 0.134, INR 1.1, urinalysis bland. CT head and neck with no acute abnormalities. CT chest with bibasilar infiltrates and NGT and ETT in good positioning. nuclear monitoring technician concerning for third-degree heart block, with rate in the 20s, therefore 1 mg epinephrine administered with minimal improvement in HR, then 1 mg atropine without significant improvement, then dopamine gtt without sustained improvement. 3 L IV fluid administered and unasyn for aspiration pneumonitis. Ultimately was responsive to transcutaneous pacing and after discussion with cardiology he was transferred to [facility] for further care. To cytogenetics laboratory manager prior to my assessment, had pacemaker generator replaced emergently. Seen in ICU. Discussed with son bedside. 09/23: Afebrile, on vent with FiO2 50%, PEEP 5. Continue dopamine gtt. We will continue Unasyn for aspiration pneumonia. Chest x-ray showed suspected partially consolidated left lower lobe infiltrate superimposed on right lower and bilateral upper lobe multifocal interstitial infiltrate.. Critical care time 30 minutes spent reviewing charts, general labs, reviewing imaging, and discussion with RN. 09/24: Afebrile. On vent with FiO2 40%, PEEP 5. Remains on pressor support. Off dopamine. Will continue Unasyn for pneumonia. Continue to wean off vent. Critical care time 30 minutes spent reviewing charts, general labs, reviewing imaging, discussion with Dr. Mcdaniel. 09/25: Low-grade fever overnight, T-max 100.6 F. On vent with FiO2 35%, PEEP 5. Chest x-ray yesterday showed diffuse increased interstitial opacity likely due to interstitial infiltrate. Continue IV antibiotics. He has been off sedation for the past 24 hours. Platelets have steadily dropped; platelets 89 today. I discussion with daughter and son-in-law by phone about concerns for worsening bruising and, cytopenia. They are agreeable to no chest compressions, as to not cause any further damage that may lead to prolonged intubation. We will continue to wean off ventilator. 30 minutes critical care time spent reviewing charts, reviewing labs, reviewing imaging, discussion with RN, and discussion with Dr. Ortiz. 09/26: Afebrile. On vent with FiO2 35%, PEEP 5. Chest x-ray today showing stable diffuse interstitial infiltrate. Platelets [address] Brand was consulted yesterday; he is discussed with family the likely poor prognosis. Sister wants to fly in from [place] to see him. Family would like DNR but chemical code; son-in-law will discuss with the rest of family. Critical care time 30 minutes spent reviewing chart, reviewing labs, reviewing imaging, discussing with Dr. Ortiz. 09/27: Afebrile; on vent with FiO2 50%, PEEP 5. Off. For 72 hours. Some spontaneous movements noted this morning. I believe family is flying in from [place] to see him prior to making full DNR; chemical code. Critical care time 30 minutes spent reviewing charts, general labs, reviewing imaging, and discussion with RN. 09/28: Febrile overnight, T-max 102.0 F. 09/29: Patient evaluated examined at bedside. Remains off sedation. But still pretty unresponsive. Absent brainstem reflexes. Will attempt to contact family today to see if they are in fact coming in from [place]. Still on Levophed and dopamine. 09/30: Patient evaluated and examined at bedside. Still off sedation and unresponsive. Still on Levophed for blood pressure support. Family supposed to arrive today for discussion of ongoing care. 10/01: Patient evaluated and examined at bedside. Still intubated and unresponsive. Requiring pressors. Talk to patient's son on phone today for 15 minutes discussing advanced care planning. He reported that she has not been able to discuss ongoing care with his sister as she works in the afternoons and he works in the evenings. Provided clinical updates to him told him about no real improvement at this point. Still remains on high ventilator settings. 10/02: Patient evaluated examined at bedside. Still intubated minimally responsive even without sedation. Waiting for son to arrive at bedside for care discussion. Otherwise continuing current plans. I spent 35 minutes critical care time reviewing charts labs imaging and discussion with subspecialist and nursing team. 10/03: Patient evaluated examined at bedside. I discussed with the family yesterday for approximately 35 minutes ongoing care plans. During that time patient did have some extremity movement along with some head movement showing discomfort from the ventilator. With this family would like to continue care for now. I spoke with them again at bedside today and that they would like to continue on until at least tomorrow evening. Still think very poor prognosis. However will honor family wishes. Plan of care discussed with bedside RN. I spent 35 minutes critical care time reviewing charts labs imaging and discussion with specialists and nursing team 10/04: Patient evaluated at bedside. Still with some movements in his extremities. Still intubated minimally responsive despite being off sedation for over a week. Continue discussion of goals with family. 35 minutes critical care time. 10/05: Patient evaluated examined at bedside. Hyponatremic this morning on review does appear his sodium has been creeping up. We will increase free water flushes. Family continues discussing goals of care. Here to provide them any information needed. 33 minutes critical care time 10/06: Overnight no events. NA 149, K3.4, Hb 9.5. No meaningful movement off sedation over a week. 10/07: Overnight afebrile. Withdraws from pain requiring great toe reflex is breathing over the ventilator. Brainstem reflexes intact seems to be anoxic brain injury. discussed with family over the phone the asked for an additional week. I encouraged consideration of comfort care offered tracheostomy and PEG a do not want surgical interventions at this time 10/08: NA 142 today. On vent 35% FiO2 PEEP of 5 O2 saturations 100%. Has doll's eyes no meaningful movement does withdraw from painful stimuli. Babinski bilaterally. Afebrile 10/09: Afebrile overnight. On vent 35% FiO2 PEEP 5 with O2 saturations 96%. Still with no movement today withdrawal from painful stimuli Babinski bilaterally. Meeting at [address] Price from pulmonology, plan to withdraw care on 10/12/2021 when daughter arrives 10/10T-max 100.1 F overnight. On vent 35% FiO2 PEEP 5, O2 saturations 96%. Still with no purposeful movement withdraws from painful stimuli bilateral Babinski 10/11/2021 No acute events overnight. Patient seen and examined bedside. Current vent settings of 12/500/35/5. Patient remains on dopamine for pressors and not on any sedatives. No purposeful movements upon sternal rub. Patient's chart, labs, images were reviewed and discussed with RN 10/12/21 Patient seen and examined bedside. No acute events overnight. Patient extubated this afternoon and appears comfortable. Maintaining his own without any pain. No pressors at this time. Patient's chart, labs, images were reviewed and discussed with RN. 10/14/2021 No acute events overnight. Patient seen and examined bedside. No respiratory distress and appears comfortable. Minimal secretions. Would not recommend PEG tube placement for TPN. Patient may participate with pleasure feedings with assistance if able to wake up and intake food. Family does not want the patient to starve. Pending family discussion for patient pleasure feeding and possibly home hospice. Patient's chart, labs, images were reviewed and discussed with RN 10/15/2021 No acute events overnight. Patient seen and examined bedside appears comfortable. No respiratory distress or copious secretions. Apparently, family does want a PEG tube placed. We will plan on home with hospice after PEG tube is in place. GI consulted. Patient's chart, labs, images were reviewed and discussed with RN 10/16/2021 No acute events overnight. Patient appears comfortable at bedside. Waiting for family meeting for discussion of futility of nutrition or any further aggressive procedures. Patient's chart, labs, images were reviewed and discussed with RN Vitals/I&O Vitals/I&O: Vital Signs Date Time Temp Pulse Resp B/P (MAP) Pulse Ox O2 Delivery O2 Flow Rate FiO2 10/16/21 11:00 98.1 79 15 137/57 (83) 100 Room Air 98.1 10/16/21 10:00 1.0 I & O 10/15/21 10/15/21 10/16/21 15:00 23:00 07:00 Intake Total 122 ml 0 ml Output Total 520 ml 400 ml Balance -398 ml -400 ml Physical Exam General: Alert, No acute distress Heart: Regular rate Lungs: Crackles Abdomen: Normal bowel sounds Extremities: No clubbing, No cyanosis, No edema, Normal pulses, No tenderness/swelling Skin: Other (Extensive bruising to anterior chest wall) Comment Review of Relevant I have reviewed the following items ivania (where applicable) has been applied. Justifications for Admission Chest Pain Indications Respiratory Distress?: Yes Justification for admission: Patient's respiratory distress as indicated by (SOB/tachypnea/abnormal breathing pattern plus hypoxemia/AMS/other evidence of respiratory compromise such as pulmonary edema on chest x-ray) will need inpatient level of care. Serious Diagnosis?: Yes Justification for admission: Chest pain may be indicative of potentially serious diagnosis/diagnoses Please state condition(s) which will require inpatient level of care for further evaluation and management. Other Justification EMILY HARRIS MD Oct 16, 2021 11:35
--- NOTE | 2021-10-16 12:38 | PDOC ---
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 Subjective None Objective Vital Signs Date Time Temp Pulse Resp B/P (MAP) Pulse Ox O2 Delivery O2 Flow Rate FiO2 10/16/21 12:18 100 Room Air 1.0 10/16/21 11:00 98.1 79 15 137/57 (83) 98.1 Intake and Output 10/16/21 07:00 Intake Total 122 ml Output Total 920 ml Balance -798 ml Intake Oral 0 ml IV Total 122 ml Output Urine Total 920 ml # Bowel Movements 1 PHYSICAL EXAM Appears comfortable, end-of-life respirations Extubated, eyes closed, no response to voice, postures a little to pain PERRL. CN: no focal findings. Muscle tone: normal. Muscle strength: Slight withdrawal to pain on the right DTR: 1+ Plantar reflex: Silent Gait: not examined. Sensory exam: Not cooperative. Cerebellar: Not cooperative Review of Relevant I have reviewed the following items ivania (where applicable) has been applied. Medications Current Medications Fentanyl Citrate 30 ml @ 2.5 mls/hr CONT PRN IV SEE PROTOCOL Last administered on 09/24/21at 04:21; Start 09/22/21 at 18:00; Stop 10/06/21 at 08:56; Status DC Midazolam HCl 100 ml @ 1 mls/hr CONT PRN IV SEE PROTOCOL Last administered on 09/24/21at 04:21; Start 09/22/21 at 18:00; Stop 10/06/21 at 08:56; Status DC Propofol 100 ml @ 2.244 mls/ hr CONT PRN IV PER PROTOCOL Last administered on 09/22/21at 17:39; Start 09/22/21 at 18:00; Stop 10/06/21 at 08:56; Status DC Sodium Chloride 500 ml @ 500 mls/hr 1X PRN PRN IV SEE COMMENTS; Start 09/22/21 at 18:00 Atropine Sulfate (ATROPINE 0.5mg SYRINGE) 0.5 mg PRN Q5MIN PRN IV SEE COMMENTS; Start 09/22/21 at 18:00 Famotidine (Pepcid Vial) 20 mg BID IVP Last administered on 09/22/21at 21:58; Start 09/22/21 at 21:00; Stop 09/23/21 at 08:32; Status DC Midazolam HCl (Versed) 2 mg 1X ONCE IV Last administered on 09/22/21at 18:15; Start 09/22/21 at 18:15; Stop 09/22/21 at 18:16; Status DC Lidocaine/ Epinephrine (LIDOCAINE 2%-EPI 1:100,000 multi-dose) 20 ml 1X ONCE IJ Last administered on 09/22/21at 18:17; Start 09/22/21 at 18:15; Stop 09/22/21 at 18:16; Status DC Cefazolin Sodium (Ancef) 1 gm 1X ONCE IVP Last administered on 09/22/21at 18:15; Start 09/22/21 at 18:15; Stop 09/22/21 at 18:16; Status DC Propofol 100 ml @ 2.244 mls/ hr CONT PRN IV PER PROTOCOL; Start 09/22/21 at 18:15; Status UNV Ondansetron HCl (Zofran) 4 mg PRN Q4HRS PRN IVP NAUSEA/VOMITING; Start 09/22/21 at 18:45 Acetaminophen (Tylenol Supp) 650 mg PRN Q6HRS PRN [place] MILD PAIN / TEMP > 100.3'F Last administered on 10/15/21at 22:14; Start 09/22/21 at 18:45 Bisacodyl (Dulcolax Supp) 10 mg PRN DAILY PRN [place] CONSTIPATION; Start 09/22/21 at 18:45 Promethazine HCl (Phenergan Supp) 12.5 mg PRN Q6HRS PRN [place] NAUSEA/VOMITING; Start 09/22/21 at 18:45 Ampicillin Sodium/ Sulbactam Sodium 3 gm/Sodium Chloride 100 ml @ 200 mls/hr Q6HRS IV Last administered on 09/25/21at 12:21; Start 09/22/21 at 18:45; Stop 09/25/21 at 16:21; Status DC Dopamine HCl/ Dextrose 250 ml @ 28.05 mls/ hr CONT PRN IV SEE I/O RECORD Last administered on 09/23/21at 08:44; Start 09/22/21 at 18:45; Stop 10/13/21 at 09 :59; Status DC Lidocaine/ Epinephrine (LIDOCAINE 2%-EPI 1:100,000 multi-dose) 20 ml STK-MED ONCE .ROUTE ; Start 09/22/21 at 18:53; Stop 09/22/21 at 18:53; Status DC Midazolam HCl (Versed) 2 mg STK-MED ONCE .ROUTE ; Start 09/22/21 at 18:53; Stop 09/22/21 at 18:53; Status DC Cefazolin Sodium (Ancef) 1 gm STK-MED ONCE IVP ; Start 09/22/21 at 18:53; Stop 09/22/21 at 18:53; Status DC Fentanyl Citrate (Fentanyl 2ml Vial) 25 mcg PRN Q3HRS PRN IVP SEVERE PAIN 7-10; Start 09/22/21 at 21:30; Status Cancel Famotidine (Pepcid Vial) 20 mg DAILY IVP Last administered on 10/03/21at 08:56; Start 09/23/21 at 09:00; Stop 10/03/21 at 11:35; Status DC Heparin Sodium (Porcine) (Heparin Sodium) 5,000 unit Q12HR SQ Last administered on 09/23/21at 20:45; Start 09/23/21 at 21:00; Stop 09/23/21 at 22:59; Status DC Norepinephrine Bitartrate 8 mg/ Dextrose 258 ml @ 13.971 mls/ hr CONT PRN IV PER PROTOCOL Last administered on 09/23/21at 22:14; Start 09/23/21 at 11:45; Stop 10/13/21 at 09:59; Status DC Ampicillin Sodium/ Sulbactam Sodium 3 gm/Sodium Chloride 100 ml @ 200 mls/hr Q12HR IV Last administered on 09/28/21at 07:52; Start 09/25/21 at 21:00; Stop 09/28/21 at 13:20; Status DC Levetiracetam 500 mg/Dextrose 105 ml @ 420 mls/hr Q12HR IV Last administered on 10/16/21at 10:41; Start 09/26/21 at 04:00 Furosemide (Lasix) 20 mg 1X ONCE IVP Last administered on 09/26/21at 13:15; Start 09/26/21 at 13:15; Stop 09/26/21 at 13:16; Status DC Ampicillin Sodium/ Sulbactam Sodium 3 gm/Sodium Chloride 100 ml @ 200 mls/hr Q6HRS IV Last administered on 10/06/21at 05:59; Start 09/28/21 at 18:00; Stop 10/06/21 at 08:56; Status DC Acetaminophen (Tylenol) 650 mg PRN Q6HRS PRN PEG MILD PAIN / TEMP > 100.3'F Last administered on 09/30/21at 20:52; Start 09/29/21 at 09:45; Stop 10/13/21 at 10:00; Status DC Famotidine (Pepcid Vial) 20 mg BID IVP Last administered on 10/15/21at 20:45; Start 10/03/21 at 21:00 Morphine Sulfate (Morphine Sulfate) 2 mg PRN Q15MIN PRN IV PAIN Last administered on 10/16/21at 11:48; Start 10/12/21 at 14:30 Lorazepam (Ativan Inj) 2 mg PRN Q1HR PRN IVP ANXIETY / AGITATION Last administered on 10/16/21at 09:30; Start 10/12/21 at 14:30 Scopolamine (Transderm-Scop) 1 patch Q3DAYS TD Last administered on 10/16/21at 10:41; Start 10/13/21 at 09:00 Active Scripts Active Reported Urea 227 Gm Cream..g. 1 Tata TP DAILY 30 Days Crestor (Rosuvastatin Calcium) 40 Mg Tablet 1 Tab PO DAILY Namenda (Memantine Hcl) 10 Mg Tablet 1 Tab PO BID Pantoprazole Sodium (Pantoprazole Sodium) 40 Mg Tablet.dr 40 Mg PO DAILYAC Lisinopril 40 Mg Tablet 0.5 Tab PO DAILY Levothyroxine Sodium 50 Mcg Tablet 1 Tab PO DAILY Xolegel (Ketoconazole) 45 Gm Gel..gram. 1 Tata TP BID 30 Days Isosorbide Mononitrate Er (Isosorbide Mononitrate) 60 Mg Tab.er.24h 1 Tab PO DAILY Hydrophor Ointment (Mineral Oil/Hydrophil Petrolat) 454 Gm Oint...g. 454 Gm TP PRN PRN Zetia (Ezetimibe) 10 Mg Tablet 1 Tab PO DAILY 30 Days Donepezil Hcl 10 Mg Tablet 1 Tab PO DAILY Clopidogrel (Clopidogrel Bisulfate) 75 Mg Tablet 75 Mg PO DAILY Celexa (Citalopram Hydrobromide) 40 Mg Tablet 1 Tab PO DAILY Vitamin D3 (Vitamin D) 25 Mcg Tablet 25 Mcg PO DAILY 1,000 UNITS = 25 MCG Thera Tears (Carboxymethylcellulose Sodium) 15 Ml Drops 1 Drop EACHEYE QID Atenolol 25 Mg Tablet 1 Tab PO DAILY Amlodipine Besylate 5 Mg Tablet 5 Mg PO DAILY Vitals/I & O Vital Sign - Last 24 Hours 10/15/21 10/15/21 10/15/21 10/15/21 16:03 20:00 20:00 22:53 Temp 98.1 98.1 99.0 98.1 98.1 99.0 Pulse 74 79 79 Resp 22 26 29 B/P (MAP) 154/79 (104) 132/56 (81) 131/54 (79) Pulse Ox 95 94 94 O2 Delivery Room Air Room Air Room Air 10/16/21 10/16/21 10/16/21 10/16/21 00:10 02:55 07:00 08:00 Temp 98.9 98.3 97.9 98.9 98.3 97.9 Pulse 69 69 Resp 27 15 B/P (MAP) 137/54 (81) 155/64 (94) Pulse Ox 99 99 O2 Delivery Room Air Room Air Room Air 10/16/21 10/16/21 10/16/21 10/16/21 09:30 10:00 11:00 11:48 Temp 98.1 98.1 Pulse 79 Resp 15 B/P (MAP) 137/57 (83) Pulse Ox 99 99 100 100 O2 Delivery Room Air Room Air Room Air Room Air O2 Flow Rate 1.0 1.0 1.0 10/16/21 12:18 Pulse Ox 100 O2 Delivery Room Air O2 Flow Rate 1.0 Intake and Output 10/15/21 10/15/21 10/16/21 15:00 23:00 07:00 Intake Total 122 ml 0 ml Output Total 520 ml 400 ml Balance -398 ml -400 ml Justicifation of Admission Dx: Justifications for Admission: Justification of Admission Dx: N/A BRIDGETTE ROLAND MD Oct 16, 2021 12:38
[2021-10-16 15:00] VITALS: BP 116/54
--- NOTE | 2021-10-16 16:16 | NUR ---
SS following up with discharge planning. SS reviewed pt chart and discussed with pt RN. Pt is currently on room air. Pt on IV Keppra. Unresponsive. [facility] reassessed this morning. Not appropriate for GIP at this time. Pt's daughter wanting PEG placed. Possible PEG placement Wednesday if Dr. Louis is agreeable. Pt having periods of Apnea today. SS will continue to follow for discharge planning.
--- NOTE | 2021-10-16 16:46 | PDOC ---
CARDIOLOGY PROGRESS NOTE SUBJECTIVE: No acute cardiovascular events overnight multiple discussions have been being held with the family regarding goals of care Patient is nonresponsive OBJECTIVE: Vital Signs/I&O: Vital Signs Date Time Temp Pulse Resp B/P (MAP) Pulse Ox O2 Delivery O2 Flow Rate FiO2 10/16/21 16:34 98 Room Air 1.0 10/16/21 15:00 98.1 70 16 116/54 (74) 98.1 I & O 10/15/21 10/15/21 10/16/21 15:00 23:00 07:00 Intake Total 122 ml 0 ml Output Total 520 ml 400 ml Balance -398 ml -400 ml Objective: Normal heart tones Right pacemaker site is clean dry and intact Soft abdomen No edema Normal lung wells bilaterally CURRENT MEDICATIONS: No current cardiovascular medication DIAGNOSTIC TESTING: No new diagnostic test Labs: No new laboratory study ASSESSMENT: 1. Anoxic encephalopathy 2. History of sick sinus syndrome with dual-chamber pacemaker with emergent battery change out PLAN: 1. At this present time agree with remainder of physician providers that hospice therapy would be the best approach. We are available for any further issues. Pls call if needed. Thanks Justicifation of Admission Dx: Justifications for Admission: Justification of Admission Dx: N/A DENIS CHEUNG MD Oct 16, 2021 16:46
--- NOTE | 2021-10-16 18:55 | NUR ---
Spoke with both of the patients daughters including Garima the DPOA about patients current state. Spoke about the risks of feeding tube and the evidence of feeding in end of life care. Family understands that there is no evidence suggesting patient feels hunger or discomfort at this stage of dying. Family wants to proceed with comfort measures and hold off on any surgical placement of a PEG at this time. Family educated on the patients current respiratory status having periods of apnea fallowed by decreased SPO2. Family understands what this means in the stage of the dying process. Family would like to be at patients side when he is dying and wants to be notified of any changes no matter the time. Family is agreeable with hospice however they are uncomfortable taking him home on hospice and/or providing him any care themselves. Family will meet with SW tomorrow to discuss options but for now patient will stay in the ICU to be provided comfort care by the ICU staff. Family is very very happy with the care that is being provided to patient and feels very comfortable with him being here and they have expressed their trust in all medical staff and would like to continue to stay here if possible. Will continue to educate and monitor patient and current situation.
[2021-10-16 19:00] VITALS: BP 116/52
[2021-10-17] VITALS (7 sets, daily range): BP systolic 119–159; BP diastolic 53–67
--- NOTE | 2021-10-17 08:05 | PDOC ---
PULMONARY PROGRESS NOTES DATE: 10/17/21 TIME: 08:05 Subjective Patient extubated 10/12 Patient appears to be comfortable Vitals Vital Signs Date Time Temp Pulse Resp B/P (MAP) Pulse Ox O2 Delivery O2 Flow Rate FiO2 10/17/21 07:00 98.4 72 9 142/62 (88) 98 Room Air 98.4 10/16/21 18:59 1.0 HEENT: Other (nc at orally intubated nose clear neck no lad no thyromegaly) Lungs: Crackles Cardiovascular: S1, S2 Abdomen: Soft Extremities: Other (Some edema) Skin: Warm Medications Active Scripts Medications Dose Route/Sig Max Daily Dose Days Date Category Dose Instructions Urea 227 Gm Cream..g. 1 Tata TP DAILY 30 09/23/21 Reported Crestor (Rosuvastatin Calcium) 40 Mg Tablet 1 Tab PO DAILY 09/23/21 Reported Namenda (Memantine Hcl) 10 Mg Tablet 1 Tab PO BID 09/23/21 Reported Pantoprazole Sodium (Pantoprazole Sodium) 40 Mg Tablet.dr 40 Mg PO DAILYAC 09/23/21 Reported Lisinopril 40 Mg Tablet 0.5 Tab PO DAILY 09/23/21 Reported Levothyroxine Sodium 50 Mcg Tablet 1 Tab PO DAILY 09/23/21 Reported Xolegel (Ketoconazole) 45 Gm Gel..gram. 1 Tata TP BID 30 09/23/21 Reported Isosorbide Mononitrate Er (Isosorbide Mononitrate) 60 Mg Tab.er.24h 1 Tab PO DAILY 09/23/21 Reported Hydrophor Ointment (Mineral Oil/Hydrophil Petrolat) 454 Gm Oint...g. 454 Gm TP PRN PRN 09/23/21 Reported Zetia (Ezetimibe) 10 Mg Tablet 1 Tab PO DAILY 30 09/23/21 Reported Donepezil Hcl 10 Mg Tablet 1 Tab PO DAILY 09/23/21 Reported Clopidogrel (Clopidogrel Bisulfate) 75 Mg Tablet 75 Mg PO DAILY 09/23/21 Reported Celexa (Citalopram Hydrobromide) 40 Mg Tablet 1 Tab PO DAILY 09/23/21 Reported Vitamin D3 (Vitamin D) 25 Mcg Tablet 25 Mcg PO DAILY 09/23/21 Reported 1,000 UNITS = 25 MCG Thera Tears (Carboxymethylcellulose Sodium) 15 Ml Drops 1 Drop EACHEYE QID 09/23/21 Reported Atenolol 25 Mg Tablet 1 Tab PO DAILY 09/23/21 Reported Amlodipine Besylate 5 Mg Tablet 5 Mg PO DAILY 09/23/21 Reported Comments cxr reviewed 09/28 Resolved previously seen diffuse interstitial infiltrates secondary to CHF Impression . IMPRESSION: 1. Acute hypoxemic respiratory failure secondary to complete heart block. 2. 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 3. Acute kidney injury. 4. Elevated liver chemistries. 5. Non-ST segment elevation myocardial infarction. 6. Severe protein malnutrition, present upon admission. 7. Respiratory alkalosis. Minute ventilation adjust 8. Patient does assist ventilator, brainstem function intact 9. Possible seizures 10. Anoxic brain injury Plan . Updated 10/17 I spoke with son-in-law yesterday, and gave him my phone number to have his call me, never called me. Appreciate GI input, family decided against PEG tube placement Transfer out of ICU I will sign off call if needed CT MERCEDES MD Oct 17, 2021 08:05
--- NOTE | 2021-10-17 08:43 | PDOC ---
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 Subjective None Objective Vital Signs Date Time Temp Pulse Resp B/P (MAP) Pulse Ox O2 Delivery O2 Flow Rate FiO2 10/17/21 07:00 98.4 72 9 142/62 (88) 98 Room Air 98.4 10/16/21 18:59 1.0 Intake and Output 10/17/21 07:00 Intake Total 0 ml Output Total 750 ml Balance -750 ml Intake Oral 0 ml Output Urine Total 750 ml PHYSICAL EXAM Appears comfortable, end-of-life respirations Extubated, eyes closed, no response to voice, postures a little to pain PERRL. CN: no focal findings. Muscle tone: normal. Muscle strength: Slight withdrawal to pain on the right DTR: 1+ Plantar reflex: Silent Gait: not examined. Sensory exam: Not cooperative. Cerebellar: Not cooperative Review of Relevant I have reviewed the following items ivania (where applicable) has been applied. Medications Current Medications Fentanyl Citrate 30 ml @ 2.5 mls/hr CONT PRN IV SEE PROTOCOL Last administered on 09/24/21at 04:21; Start 09/22/21 at 18:00; Stop 10/06/21 at 08:56; Status DC Midazolam HCl 100 ml @ 1 mls/hr CONT PRN IV SEE PROTOCOL Last administered on 1 at 04:21; Start 09/22/21 at 18:00; Stop 10/06/21 at 08:56; Status DC Propofol 100 ml @ 2.244 mls/ hr CONT PRN IV PER PROTOCOL Last administered on 09/22/21at 17:39; Start 09/22/21 at 18:00; Stop 10/06/21 at 08:56; Status DC Sodium Chloride 500 ml @ 500 mls/hr 1X PRN PRN IV SEE COMMENTS; Start 09/22/21 at 18:00 Atropine Sulfate (ATROPINE 0.5mg SYRINGE) 0.5 mg PRN Q5MIN PRN IV SEE COMMENTS; Start 09/22/21 at 18:00 Famotidine (Pepcid Vial) 20 mg BID IVP Last administered on 09/22/21at 21:58; Start 09/22/21 at 21:00; Stop 09/23/21 at 08:32; Status DC Midazolam HCl (Versed) 2 mg 1X ONCE IV Last administered on 09/22/21at 18:15; Start 09/22/21 at 18:15; Stop 09/22/21 at 18:16; Status DC Lidocaine/ Epinephrine (LIDOCAINE 2%-EPI 1:100,000 multi-dose) 20 ml 1X ONCE IJ Last administered on 09/22/21at 18:17; Start 09/22/21 at 18:15; Stop 09/22/21 at 18:16; Status DC Cefazolin Sodium (Ancef) 1 gm 1X ONCE IVP Last administered on 09/22/21at 18:15; Start 09/22/21 at 18:15; Stop 09/22/21 at 18:16; Status DC Propofol 100 ml @ 2.244 mls/ hr CONT PRN IV PER PROTOCOL; Start 09/22/21 at 18:15; Status UNV Ondansetron HCl (Zofran) 4 mg PRN Q4HRS PRN IVP NAUSEA/VOMITING; Start 09/22/21 at 18:45 Acetaminophen (Tylenol Supp) 650 mg PRN Q6HRS PRN [place] MILD PAIN / TEMP > 100.3'F Last administered on 10/15/21at 22:14; Start 09/22/21 at 18:45 Bisacodyl (Dulcolax Supp) 10 mg PRN DAILY PRN [place] CONSTIPATION; Start 09/22/21 at 18:45 Promethazine HCl (Phenergan Supp) 12.5 mg PRN Q6HRS PRN [place] NAUSEA/VOMITING; Start 09/22/21 at 18:45 Ampicillin Sodium/ Sulbactam Sodium 3 gm/Sodium Chloride 100 ml @ 200 mls/hr Q6HRS IV Last administered on 09/25/21at 12:21; Start 09/22/21 at 18:45; Stop 09/25/21 at 16:21; Status DC Dopamine HCl/ Dextrose 250 ml @ 28.05 mls/ hr CONT PRN IV SEE I/O RECORD Last administered on 09/23/21at 08:44; Start 09/22/21 at 18:45; Stop 10/13/21 at 09:59; Status DC Lidocaine/ Epinephrine (LIDOCAINE 2%-EPI 1:100,000 multi-dose) 20 ml STK-MED ONCE .ROUTE ; Start 09/22/21 at 18:53; Stop 09/22/21 at 18:53; Status DC Midazolam HCl (Versed) 2 mg STK-MED ONCE .ROUTE ; Start 09/22/21 at 18:53; Stop 09/22/21 at 18:53; Status DC Cefazolin Sodium (Ancef) 1 gm STK-MED ONCE IVP ; Start 09/22/21 at 18:53; Stop 09/22/21 at 18:53; Status DC Fentanyl Citrate (Fentanyl 2ml Vial) 25 mcg PRN Q3HRS PRN IVP SEVERE PAIN 7-10; Start 09/22/21 at 21:30; Status Cancel Famotidine (Pepcid Vial) 20 mg DAILY IVP Last administered on 10/03/21at 08:56; Start 09/23/21 at 09:00; Stop 10/03/21 at 11:35; Status DC Heparin Sodium (Porcine) (Heparin Sodium) 5,000 unit Q12HR SQ Last administered on 09/23/21at 20:45; Start 09/23/21 at 21:00; Stop 09/23/21 at 22:59; Status DC Norepinephrine Bitartrate 8 mg/ Dextrose 258 ml @ 13.971 mls/ hr CONT PRN IV PER PROTOCOL Last administered on 09/23/21at 22:14; Start 09/23/21 at 11:45; Stop 10/13/21 at 09:59; Status DC Ampicillin Sodium/ Sulbactam Sodium 3 gm/Sodium Chloride 100 ml @ 200 mls/hr Q12HR IV Last administered on 09/28/21at 07:52; Start 09/25/21 at 21:00; Stop 09/28/21 at 13:20; Status DC Levetiracetam 500 mg/Dextrose 105 ml @ 420 mls/hr Q12HR IV Last administered o n 10/16/21at 22:00; Start 09/26/21 at 04:00 Furosemide (Lasix) 20 mg 1X ONCE IVP Last administered on 09/26/21at 13:15; Start 09/26/21 at 13:15; Stop 09/26/21 at 13:16; Status DC Ampicillin Sodium/ Sulbactam Sodium 3 gm/Sodium Chloride 100 ml @ 200 mls/hr Q6HRS IV Last administered on 10/06/21at 05:59; Start 09/28/21 at 18:00; Stop 10/06/21 at 08:56; Status DC Acetaminophen (Tylenol) 650 mg PRN Q6HRS PRN PEG MILD PAIN / TEMP > 100.3'F Last administered on 09/30/21at 20:52; Start 09/29/21 at 09:45; Stop 10/13/21 at 10:00; Status DC Famotidine (Pepcid Vial) 20 mg BID IVP Last administered on 10/16/21at 22:00; Start 10/03/21 at 21:00 Morphine Sulfate (Morphine Sulfate) 2 mg PRN Q15MIN PRN IV PAIN Last administered on 10/16/21at 18:29; Start 10/12/21 at 14:30 Lorazepam (Ativan Inj) 2 mg PRN Q1HR PRN IVP ANXIETY / AGITATION Last administered on 10/16/21at 09:30; Start 10/12/21 at 14:30 Scopolamine (Transderm-Scop) 1 patch Q3DAYS TD Last administered on 10/16/21at 10:41; Start 10/13/21 at 09:00 Active Scripts Active Reported Urea 227 Gm Cream..g. 1 Tata TP DAILY 30 Days Crestor (Rosuvastatin Calcium) 40 Mg Tablet 1 Tab PO DAILY Namenda (Memantine Hcl) 10 Mg Tablet 1 Tab PO BID Pantoprazole Sodium (Pantoprazole Sodium) 40 Mg Tablet.dr 40 Mg PO DAILYAC Lisinopril 40 Mg Tablet 0.5 Tab PO DAILY Levothyroxine Sodium 50 Mcg Tablet 1 Tab PO DAILY Xolegel (Ketoconazole) 45 Gm Gel..gram. 1 Tata TP BID 30 Days Isosorbide Mononitrate Er (Isosorbide Mononitrate) 60 Mg Tab.er.24h 1 Tab PO DAILY Hydrophor Ointment (Mineral Oil/Hydrophil Petrolat) 454 Gm Oint...g. 454 Gm TP PRN PRN Zetia (Ezetimibe) 10 Mg Tablet 1 Tab PO DAILY 30 Days Donepezil Hcl 10 Mg Tablet 1 Tab PO DAILY Clopidogrel (Clopidogrel Bisulfate) 75 Mg Tablet 75 Mg PO DAILY Celexa (Citalopram Hydrobromide) 40 Mg Tablet 1 Tab PO DAILY Vitamin D3 (Vitamin D) 25 Mcg Tablet 25 Mcg PO DAILY 1,000 UNITS = 25 MCG Thera Tears (Carboxymethylcellulose Sodium) 15 Ml Drops 1 Drop EACHEYE QID Atenolol 25 Mg Tablet 1 Tab PO DAILY Amlodipine Besylate 5 Mg Tablet 5 Mg PO DAILY Vitals/I & O Vital Sign - Last 24 Hours 10/16/21 10/16/21 10/16/21 10/16/21 09:30 10:00 11:00 11:48 Temp 98.1 98.1 Pulse 79 Resp 15 B/P (MAP) 137/57 (83) Pulse Ox 99 99 100 100 O2 Delivery Room Air Room Air Room Air Room Air O2 Flow Rate 1.0 1.0 1.0 10/16/21 10/16/21 10/16/21 10/16/21 12:18 13:23 13:53 15:00 Temp 98.1 98.1 Pulse 70 Resp 16 B/P (MAP) 116/54 (74) Pulse Ox 100 100 100 98 O2 Delivery Room Air Room Air Room Air Room Air O2 Flow Rate 1.0 1.0 1.0 10/16/21 10/16/21 10/16/21 10/16/21 16:34 17:04 18:29 18:59 Pulse Ox 98 98 98 98 O2 Delivery Room Air Room Air Room Air Room Air O2 Flow Rate 1.0 1.0 1.0 1.0 10/16/21 10/16/21 10/17/21 10/17/21 19:00 20:00 00:00 04:00 Temp 98.8 99.3 99.5 98.8 99.3 99.5 Pulse 68 70 72 Resp 26 12 12 B/P (MAP) 116/52 (73) 134/59 (84) 122/53 (76) Pulse Ox 95 95 94 O2 Delivery Room Air Room Air Room Air Room Air 10/17/21 07:00 Temp 98.4 98.4 Pulse 72 Resp 9 B/P (MAP) 142/62 (88) Pulse Ox 98 O2 Delivery Room Air Intake and Output0 10/16/21 10/16/21 10/17/21 15:00 23:00 07:00 Intake Total 0 ml Output Total 200 ml 550 ml Balance -200 ml -550 ml Justicifation of Admission Dx: Justifications for Admission: Justification of Admission Dx: N/A BRIDGETTE ROLAND MD Oct 17, 2021 08:43
[2021-10-17] MEDS: FAMOTIDINE 20 MG/2 ML VIAL IVP SCH ×2 (09:00→21:00)
[2021-10-17] MEDS: levETIRAcetam 500 MG in IV DEXTROSE 5% 100ML 100 ML IV SCH ×2 (10:27→21:00)
[2021-10-17] MEDS: MORPHINE SULFATE 2 MG/ML INJ. IV PRN (10:28)
--- NOTE | 2021-10-17 10:28 | PDOC ---
Date of Service: DATE: 10/17/21 TIME: 10:27 Objective: Objective: Reviewed nursing note: Spoke with both of the patients daughters including Garima the BLANQUITA about patients current state. Spoke about the risks of feeding tube and the evidence of feeding in end of life care. Family understands that there is no evidence suggesting patient feels hunger or discomfort at this stage of dying. Family wants to proceed with comfort measures and hold off on any surgical placement of a PEG at this time. Family educated on the patients current respiratory status having periods of apnea fallowed by decreased SPO2. Family understands what this means in the stage of the dying process. Family would like to be at patients side when he is dying and wants to be notified of any changes no matter the time. Family is agreeable with hospice however they are uncomfortable taking him home on hospice and/or providing him any care themselves. Family will meet with SW tomorrow to discuss options but for now patient will stay in the ICU to be provided comfort care by the ICU staff. Family is very very happy with the care that is being provided to patient and feels very comfortable with him being here and they have expressed their trust in all medical staff and would like to continue to stay here if possible. Will continue to educate and monitor patient and current situation. Vital Signs: Vital Signs Date Time Temp Pulse Resp B/P (MAP) Pulse Ox O2 Delivery O2 Flow Rate FiO2 10/17/21 08:00 Room Air 10/17/21 07:00 98.4 72 9 142/62 (88) 98 98.4 10/16/21 18:59 1.0 PE: GEN: appears chronically ill A/P: Anoxic encephalopathy -- Plans for comfort care noted - GI will sign off. Justicifation of Admission Dx: Justifications for Admission: Justification of Admission Dx: N/A ZOYA WEBBER Oct 17, 2021 10:28
--- NOTE | 2021-10-17 10:46 | NUR ---
SS following up with discharge planning. SS reviewed pt chart and discussed with pt RN. Pt is currently on room air Pt on IV Keppra. DNR. Non-responsive. Pt's family not consenting to PEG placement at this time. After leaving messages for [facility] PEDRO, Siria Clements, ext [phone], at the [facility], SS was able to make contact. Siria was provided with update. Clinical faxed to [phone], as requested. Siria had SS reach out to Transitions Coordinator, Suze Wei, ext [phone] and inquire about [facility] beds. SS was notified that the [facility] has no beds available at this time. SS contacted PEDRO, Siria Clements, and notified. Siria reported that she is checking to see if the [facility] has a contract for inpatient GIP hospice. Siria reported that they do have contract with [facility], ; fax [phone], and is putting in request for pt to be placed at [facility] with hospice. SS phoned and faxed referral to [facility] and discussed with Leonela in admissions. Siria hoping to have authorization approved today. Pt's RN notified. SS meeting with family at 1600 today. SS will continue to follow for discharge planning. Addendum: 10/17/21 at 1637 by ORTEGA WHIPPLE SS SS met with pt's daughters as requested. Pt's daughters notified that we are currently awaiting contracts and approvals from the [facility]. Pt's daughters stating that they will not allow pt to go to facility with hospice. Pt's daughter reporting that pt needs to [facility] or [facility] at the [facility]. SS left voicemail for [facility] updating her with pt's daughters requests. Currently awaiting approvals at this time.
--- NOTE | 2021-10-17 11:29 | PDOC ---
[employer] PROGRESS NOTE Date of Service DOS: DATE: 10/17/21 TIME: 11:27 Chief Complaint Chief Complaint A/P: Acute hypoxic respiratory failure - likely due to aspiration pneumonia from vomiting likely from symptomatic 3rd degree heart block. Will cont vent, wean O2 as tolerated. Unasyn for aspiration pneumonia coverage. Consult pulmonology for vent management assistance PEA arrest - likely from above aspiration event, complicated by 3rd degree heart block. ROSC obtained Third degree heart block - s/p PPM generator change with apparent recovery of heart rate. Cont dopamine. ICU admission Abnormal chest CT - likely due to due to pneumonia Nausea and vomiting - likely from CHB, will treat for pneumonia, will rule out other infectious etiology. IV anti-emetics Fall - second fall in a week. If neurologic recovery occurs needs gait testing, though likely this was related to cardiac event Closed head injury - posterior scalp abrasion, local wound care. Monitor neurologic function. Anemia - will check iron studies, likely of chronic disease Thrombocytopenia - unclear etiology, will trend EDWIN - likely vasomotor nephropathy from arrest. Family does not know of any history of CKD, will order [facility] records Lactic acidosis - likely due to hypoxia, will trend Transaminitis - likely related to shock liver, will monitor Elevated trop - demand ischemia from 3rd degree heart block, likely, will trend out. HTN - will add back home meds as BP allows HLD - statin when taking PO FEN - NPO. NGT feed Vital AF @ 40 ml/hr and free water flushes 200 ml q 6 PPX - pepcid, lovenox CODE - partial - no chest compressions Dispo - ICU. Patient family arrived next 24 hours to discuss ongoing plan. Addendum: I have discussed with bryn Painting and Seng Felix about overall goals of care and they have requested to "wait another week". Have advised him of the potential risks of ventilator associated pneumonia bedsores and other potential infections and have recommended after 14 days on the ventilator to consider tracheostomy and feeding tube if they want to continue care also offered palliative care and hospice care they are still precontemplative and do not want to move forward with any surgical procedures. They have made it clear if he does have a cardiac arrest he would not like chest compressions and would not like to be on the ventilator for "a year History of Present Illness History of Present Illness Mr Cerda is an 86-year-old male with PMHx HTN, HLD s/p PPM who presented to [facility] in [place] via EMS after a PEA cardiac arrest. Per his son, he was at home and in the presence of son and son-in-law when he was observed actively choking and subsequently falling on the floor with significant amount of emesis that was nonbloody and nonbilious in nature. Son reports vomit with recently ingested food and laying his father on his side and cleaning out his mouth while son-in-law called EMS. On EMS arrival ~3 minutes later, patient was unresponsive and cyanotic and they intubated. En-route patient was found to be pulseless in PEA and appropriate ACLS measures were followed with application of Howard device for chest compressions, and per report had a total of x2 epinephrine administered via left tibial IO. After approximately 5 minutes ROSC was obtained. In ED was noted unresponsive with pinpoint pupils and GCS 3 with no purposeful movements. Per EMS report and son the patient takes Plavix, lisinopril, rosuvastatin and citalopram at home. He has a pacemaker per son, which was placed in [place] over 10 years ago, and the son says he follows at [facility], doesn't know about pacer follow up. Per son he fell 4 days prior and [facility], noted on his occiput. Family notes he has been more weak than usual over past 72 hours, no travel or sick contacts. Is fully vaccinated against COVID 19. EKG appeared with third-degree heart block at 42 bpm, left axis deviation, T wave inversion noted in lead I, III, V2-6, no STEMI Vitals obtained concerning for marked bradycardia and no respiratory effort Labs with WBC 9.1, Hb 11.4, platelets 128, ABG 7.2 7/42/459 on 100% FiO2, rapid COVID-19 negative, NA 137, K4.2, BUN 50, CR 2, glucose 247, lactic acid 8.6, calcium 8.6, bilirubin 0.6, AST 131, ALT 157, alkaline phosphatase 90, ammonia 25, albumin 3, troponin 0.134, INR 1.1, urinalysis bland. CT head and neck with no acute abnormalities. CT chest with bibasilar infiltrates and NGT and ETT in good positioning. 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 3 L IV fluid administered and unasyn for aspiration pneumonitis. Ultimately was responsive to transcutaneous pacing and after discussion with cardiology he was transferred to [facility] for further care. To cath lab manager prior to my assessment, had pacemaker generator replaced emergently. Seen in ICU. Discussed with son bedside. 09/23: Afebrile, on vent with FiO2 50%, PEEP 5. Continue dopamine gtt. We will continue Unasyn for aspiration pneumonia. Chest x-ray showed suspected partially consolidated left lower lobe infiltrate superimposed on right lower and bilateral upper lobe multifocal interstitial infiltrate.. Critical care time 30 minutes spent reviewing charts, general labs, reviewing imaging, and discussion with RN. 09/24: Afebrile. On vent with FiO2 40%, PEEP 5. Remains on pressor support. Off dopamine. Will continue Unasyn for pneumonia. Continue to wean off vent. Critical care time 30 minutes spent reviewing charts, general labs, reviewing imaging, discussion with Dr. Mcdaniel. 09/25: Low-grade fever overnight, T-max 100.6 F. On vent with FiO2 35%, PEEP 5. Chest x-ray yesterday showed diffuse increased interstitial opacity likely due to interstitial infiltrate. Continue IV antibiotics. He has been off sedation for the past 24 hours. Platelets have steadily dropped; platelets 89 today. I discussion with daughter and son-in-law by phone about concerns for worsening bruising and, cytopenia. They are agreeable to no chest compressions, as to not cause any further damage that may lead to prolonged intubation. We will continue to wean off ventilator. 30 minutes critical care time spent reviewing charts, reviewing labs, reviewing imaging, discussion with RN, and discussion with Dr. Ortiz. 09/26: Afebrile. On vent with FiO2 35%, PEEP 5. Chest x-ray today showing stable diffuse interstitial infiltrate. Platelets [address] Brand was consulted yesterday; he is discussed with family the likely poor prognosis. Sister wants to fly in from [place] to see him. Family would like DNR but chemical code; son-in-law will discuss with the rest of family. Critical care time 30 minutes spent reviewing chart, reviewing labs, reviewing imaging, discussing with Dr. Ortiz. 09/27: Afebrile; on vent with FiO2 50%, PEEP 5. Off. For 72 hours. Some spontaneous movements noted this morning. I believe family is flying in from [place] to see him prior to making full DNR; chemical code. Critical care time 30 minutes spent reviewing charts, general labs, reviewing imaging, and discussion with RN. 09/28: Febrile overnight, T-max 102.0 F. 09/29: Patient evaluated examined at bedside. Remains off sedation. But still pretty unresponsive. Absent brainstem reflexes. Will attempt to contact family today to see if they are in fact coming in from [place]. Still on Levophed and dopamine. 09/30: Patient evaluated and examined at bedside. Still off sedation and unresponsive. Still on Levophed for blood pressure support. Family supposed to arrive today for discussion of ongoing care. 10/01: Patient evaluated and examined at bedside. Still intubated and unresponsive. Requiring pressors. Talk to patient's son on phone today for 15 minutes discussing advanced care planning. He reported that she has not been able to discuss ongoing care with his sister as she works in the afternoons and he works in the evenings. Provided clinical updates to him told him about no real improvement at this point. Still remains on high ventilator settings. 10/02: Patient evaluated examined at bedside. Still intubated minimally responsive even without sedation. Waiting for son to arrive at bedside for care discussion. Otherwise continuing current plans. I spent 35 minutes critical care time reviewing charts labs imaging and discussion with subspecialist and nursing team. 10/03: Patient evaluated examined at bedside. I discussed with the family yesterday for approximately 35 minutes ongoing care plans. During that time patient did have some extremity movement along with some head movement showing discomfort from the ventilator. With this family would like to continue care for now. I spoke with them again at bedside today and that they would like to continue on until at least tomorrow evening. Still think very poor prognosis. However will honor family wishes. Plan of care discussed with bedside RN. I spent 35 minutes critical care time reviewing charts labs imaging and discussion with specialists and nursing team 10/04: Patient evaluated at bedside. Still with some movements in his extremities. Still intubated minimally responsive despite being off sedation for over a week. Continue discussion of goals with family. 35 minutes critical care time. 10/05: Patient evaluated examined at bedside. Hyponatremic this morning on review does appear his sodium has been creeping up. We will increase free water flushes. Family continues discussing goals of care. Here to provide them any information needed. 33 minutes critical care time 10/06: Overnight no events. NA 149, K3.4, Hb 9.5. No meaningful movement off sedation over a week. 10/07: Overnight afebrile. Withdraws from pain requiring great toe reflex is breathing over the ventilator. Brainstem reflexes intact seems to be anoxic brain injury. discussed with family over the phone the asked for an additional week. I encouraged consideration of comfort care offered tracheostomy and PEG a do not want surgical interventions at this time 10/08: NA 142 today. On vent 35% FiO2 PEEP of 5 O2 saturations 100%. Has doll's eyes no meaningful movement does withdraw from painful stimuli. Babinski bilaterally. Afebrile 10/09: Afebrile overnight. On vent 35% FiO2 PEEP 5 with O2 saturations 96%. Still with no movement today withdrawal from painful stimuli Babinski bilaterally. Meeting at [address] Price from pulmonology, plan to withdraw care on 10/12/2021 when daughter arrives 10/10T-max 100.1 F overnight. On vent 35% FiO2 PEEP 5, O2 saturations 96%. Still with no purposeful movement withdraws from painful stimuli bilateral Babinski 10/11/2021 No acute events overnight. Patient seen and examined bedside. Current vent settings of 12/500/35/5. Patient remains on dopamine for pressors and not on any sedatives. No purposeful movements upon sternal rub. Patient's chart, labs, images were reviewed and discussed with RN 10/12/21 Patient seen and examined bedside. No acute events overnight. Patient extubated this afternoon and appears comfortable. Maintaining his own without any pain. No pressors at this time. Patient's chart, labs, images were reviewed and discussed with RN. 10/14/2021 No acute events overnight. Patient seen and examined bedside. No respiratory distress and appears comfortable. Minimal secretions. Would not recommend PEG tube placement for TPN. Patient may participate with pleasure feedings with assistance if able to wake up and intake food. Family does not want the patient to starve. Pending family discussion for patient pleasure feeding and possibly home hospice. Patient's chart, labs, images were reviewed and discussed with RN 10/15/2021 No acute events overnight. Patient seen and examined bedside appears comfortable. No respiratory distress or copious secretions. Apparently, family does want a PEG tube placed. We will plan on home with hospice after PEG tube is in place. GI consulted. Patient's chart, labs, images were reviewed and discussed with RN 10/16/2021 No acute events overnight. Patient appears comfortable at bedside. Waiting for family meeting for discussion of futility of nutrition or any further aggressive procedures. Patient's chart, labs, images were reviewed and discussed with RN 10/17/2021 Patient appears comfortable still on IV Keppra. No agonal respirations or copious secretions. Family will proceed with aggressive procedures. Social work working with family for for possible healthcare resort with hospice. Please see social work's notes for details. Patient's chart, labs, images were reviewed and discussed with RN Vitals/I&O Vitals/I&O: Vital Signs Date Time Temp Pulse Resp B/P (MAP) Pulse Ox O2 Delivery O2 Flow Rate FiO2 10/17/21 11:00 98.0 76 15 119/57 (77) 93 Room Air 98.0 10/17/21 10:58 1.0 I & O 10/16/21 10/16/21 10/17/21 15:00 23:00 07:00 Intake Total 0 ml Output Total 200 ml 550 ml Balance -200 ml -550 ml Physical Exam General: No acute distress Heart: Regular rate Lungs: Crackles Abdomen: Soft, No tenderness Extremities: No clubbing, No cyanosis, No edema, Normal pulses, No tenderne ss/swelling Skin: No rashes, No breakdown, Other (Extensive bruising to anterior chest wall) Comment Review of Relevant I have reviewed the following items ivania (where applicable) has been applied. Justifications for Admission Chest Pain Indications Respiratory Distress?: Yes Justification for admission: Patient's respiratory distress as indicated by (SOB/tachypnea/abnormal breathing pattern plus hypoxemia/AMS/other evidence of respiratory compromise such as pulmonary edema on chest x-ray) will need inpatient level of care. Serious Diagnosis?: Yes Justification for admission: Chest pain may be indicative of potentially serious diagnosis/diagnoses Please state condition(s) which will require inpatient level of care for further evaluation and management. Other Justification EMILY HARRIS MD Oct 17, 2021 11:29
--- NOTE | 2021-10-17 12:30 | NUR ---
Patient transferred to [address] [place] [address] via bed with transport. patient not responding to sound or tactile stimuli. pacemaker to upper right chest.
[2021-10-18 03:00] VITALS: BP 151/57
[2021-10-18 07:00] VITALS: BP 160/59
[2021-10-18] MEDS: FAMOTIDINE 20 MG/2 ML VIAL IVP SCH ×2 (09:00→20:17)
[2021-10-18] MEDS: levETIRAcetam 500 MG in IV DEXTROSE 5% 100ML 100 ML IV SCH ×2 (10:37→20:12)
[2021-10-18 11:00] VITALS: BP 141/63
--- NOTE | 2021-10-18 11:55 | PDOC ---
[employer] PROGRESS NOTE Date of Service DOS: DATE: 10/18/21 TIME: 11:53 Chief Complaint Chief Complaint A/P: Acute hypoxic respiratory failure - likely due to aspiration pneumonia from vomiting likely from symptomatic 3rd degree heart block. Will cont vent, wean O2 as tolerated. Unasyn for aspiration pneumonia coverage. Consult pulmonology for vent management assistance PEA arrest - likely from above aspiration event, complicated by 3rd degree heart block. ROSC obtained Third degree heart block - s/p PPM generator change with apparent recovery of heart rate. Cont dopamine. ICU admission Abnormal chest CT - likely due to due to pneumonia Nausea and vomiting - likely from CHB, will treat for pneumonia, will rule out other infectious etiology. IV anti-emetics Fall - second fall in a week. If neurologic recovery occurs needs gait testing, though likely this was related to cardiac event Closed head injury - posterior scalp abrasion, local wound care. Monitor neurologic function. Anemia - will check iron studies, likely of chronic disease Thrombocytopenia - unclear etiology, will trend EDWIN - likely vasomotor nephropathy from arrest. Family does not know of any history of CKD, will order [facility] records Lactic acidosis - likely due to hypoxia, will trend Transaminitis - likely related to shock liver, will monitor Elevated trop - demand ischemia from 3rd degree heart block, likely, will trend out. HTN - will add back home meds as BP allows HLD - statin when taking PO FEN - NPO. NGT feed Vital AF @ 40 ml/hr and free water flushes 200 ml q 6 PPX - pepcid, lovenox CODE - partial - no chest compressions Dispo - ICU. Patient family arrived next 24 hours to discuss ongoing plan. Addendum: I have discussed with bryn Painting and Seng Felix about overall goals of care and they have requested to "wait another week". Have advised him of the potential risks of ventilator associated pneumonia bedsores and other potential infections and have recommended after 14 days on the ventilator to consider tracheostomy and feeding tube if they want to continue care also offered palliative care and hospice care they are still precontemplative and do not want to move forward with any surgical procedures. They have made it clear if he does have a cardiac arrest he would not like chest compressions and would not like to be on the ventilator for "a year History of Present Illness History of Present Illness Mr Cerda is an 86-year-old male with PMHx HTN, HLD s/p PPM who presented to [facility] in [place] via EMS after a PEA cardiac arrest. Per his son, he was at home and in the presence of son and son-in-law when he was observed actively choking and subsequently falling on the floor with significant amount of emesis that was nonbloody and nonbilious in nature. Son reports vomit with recently ingested food and laying his father on his side and cleaning out his mouth while son-in-law called EMS. On EMS arrival ~3 minutes later, patient was unresponsive and cyanotic and they intubated. En-route patient was found to be pulseless in PEA and appropriate ACLS measures were followed with application of Howard device for chest compressions, and per report had a total of x2 epinephrine administered via left tibial IO. After approximately 5 minutes ROSC was obtained. In ED was noted unresponsive with pinpoint pupils and GCS 3 with no purposeful movements. Per EMS report and son the patient takes Plavix, lisinopril, rosuvastatin and citalopram at home. He has a pacemaker per son, which was placed in [place] over 10 years ago, and the son says he follows at [facility], doesn't know about pacer follow up. Per son he fell 4 days prior and [facility], noted on his [facility]iput. Family notes he has been more weak than usual over past 72 hours, no travel or sick contacts. Is fully vaccinated against COVID 19. EKG appeared with third-degree heart block at 42 bpm, left axis deviation, T wave inversion noted in lead I, III, V2-6, no STEMI Vitals obtained concerning for marked bradycardia and no respiratory effort Labs with WBC 9.1, Hb 11.4, platelets 128, ABG 7.2 7/42/459 on 100% FiO2, rapid COVID-19 negative, NA 137, K4.2, BUN 50, CR 2, glucose 247, lactic acid 8.6, calcium 8.6, bilirubin 0.6, AST 131, ALT 157, alkaline phosphatase 90, ammonia 25, albumin 3, troponin 0.134, INR 1.1, urinalysis bland. CT head and neck with no acute abnormalities. CT chest with bibasilar infiltrates and NGT and ETT in good positioning. head cook concerning for third-degree heart block, with rate in the 20s, therefore 1 mg epinephrine administered with minimal improvement in HR, then 1 mg atropine without significant improvement, then dopamine gtt without sustained improvement. 3 L IV fluid administered and unasyn for aspiration pneumonitis. Ultimately was responsive to transcutaneous pacing and after discussion with cardiology he was transferred to [facility] for further care. 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 Seen in ICU. Discussed with son bedside. 09/23: Afebrile, on vent with FiO2 50%, PEEP 5. Continue dopamine gtt. We will continue Unasyn for aspiration pneumonia. Chest x-ray showed suspected partially consolidated left lower lobe infiltrate superimposed on right lower and bilateral upper lobe multifocal interstitial infiltrate.. Critical care time 30 minutes spent reviewing charts, general labs, reviewing imaging, and discussion with RN. 09/24: Afebrile. On vent with FiO2 40%, PEEP 5. Remains on pressor support. Off dopamine. Will continue Unasyn for pneumonia. Continue to wean off vent. Critical care time 30 minutes spent reviewing charts, general labs, reviewing imaging, discussion with Dr. Mcdaniel. 09/25: Low-grade fever overnight, T-max 100.6 F. On vent with FiO2 35%, PEEP 5. Chest x-ray yesterday showed diffuse increased interstitial opacity likely due to interstitial infiltrate. Continue IV antibiotics. He has been off sedation for the past 24 hours. Platelets have steadily dropped; platelets 89 today. I discussion with daughter and son-in-law by phone about concerns for worsening bruising and, cytopenia. They are agreeable to no chest compressions, as to not cause any further damage that may lead to prolonged intubation. We will continue to wean off ventilator. 30 minutes critical care time spent reviewing charts, reviewing labs, reviewing imaging, discussion with RN, and discussion with Dr. Ortiz. 09/26: Afebrile. On vent with FiO2 35%, PEEP 5. Chest x-ray today showing stable diffuse interstitial infiltrate. Platelets [address] Brand was consulted yesterday; he is discussed with family the likely poor prognosis. Sister wants to fly in from [place] to see him. Family would like DNR but chemical code; son-in-law will discuss with the rest of family. Critical care time 30 minutes spent reviewing chart, reviewing labs, reviewing imaging, discussing with Dr. Ortiz. 09/27: Afebrile; on vent with FiO2 50%, PEEP 5. Off. For 72 hours. Some spontaneous movements noted this morning. I believe family is flying in from [place] to see him prior to making full DNR; chemical code. Critical care time 30 minutes spent reviewing charts, general labs, reviewing imaging, and discussion with RN. 09/28: Febrile overnight, T-max 102.0 F. 09/29: Patient evaluated examined at bedside. Remains off sedation. But still pretty unresponsive. Absent brainstem reflexes. Will attempt to contact family today to see if they are in fact coming in from [place]. Still on Levophed and dopamine. 09/30: Patient evaluated and examined at bedside. Still off sedation and unresponsive. Still on Levophed for blood pressure support. Family supposed to arrive today for discussion of ongoing care. 10/01: Patient evaluated and examined at bedside. Still intubated and unresponsive. Requiring pressors. Talk to patient's son on phone today for 15 minutes discussing advanced care planning. He reported that she has not been able to discuss ongoing care with his sister as she works in the afternoons and he works in the evenings. Provided clinical updates to him told him about no real improvement at this point. Still remains on high ventilator settings. 10/02: Patient evaluated examined at bedside. Still intubated minimally responsive even without sedation. Waiting for son to arrive at bedside for care discussion. Otherwise continuing current plans. I spent 35 minutes critical care time reviewing charts labs imaging and discussion with subspecialist and nursing team. 10/03: Patient evaluated examined at bedside. I discussed with the family yesterday for approximately 35 minutes ongoing care plans. During that time patient did have some extremity movement along with some head movement showing discomfort from the ventilator. With this family would like to continue care for now. I spoke with them again at bedside today and that they would like to continue on until at least tomorrow evening. Still think very poor prognosis. However will honor family wishes. Plan of care discussed with bedside RN. I spent 35 minutes critical care time reviewing charts labs imaging and discussion with specialists and nursing team 10/04: Patient evaluated at bedside. Still with some movements in his extremities. Still intubated minimally responsive despite being off sedation for over a week. Continue discussion of goals with family. 35 minutes critical care time. 10/05: Patient evaluated examined at bedside. Hyponatremic this morning on review does appear his sodium has been creeping up. We will increase free water flushes. Family continues discussing goals of care. Here to provide them any information needed. 33 minutes critical care time 10/06: Overnight no events. NA 149, K3.4, Hb 9.5. No meaningful movement off sedation over a week. 10/07: Overnight afebrile. Withdraws from pain requiring great toe reflex is breathing over the ventilator. Brainstem reflexes intact seems to be anoxic brain injury. discussed with family over the phone the asked for an additional week. I encouraged consideration of comfort care offered tracheostomy and PEG a do not want surgical interventions at this time 10/08: NA 142 today. On vent 35% FiO2 PEEP of 5 O2 saturations 100%. Has doll's eyes no meaningful movement does withdraw from painful stimuli. Babinski bilaterally. Afebrile 10/09: Afebrile overnight. On vent 35% FiO2 PEEP 5 with O2 saturations 96%. Still with no movement today withdrawal from painful stimuli Babinski bilaterally. Meeting at [address] Price from pulmonology, plan to withdraw care on 10/12/2021 when daughter arrives 10/10T-max 100.1 F overnight. On vent 35% FiO2 PEEP 5, O2 saturations 96%. Still with no purposeful movement withdraws from painful stimuli bilateral Babinski 10/11/2021 No acute events overnight. Patient seen and examined bedside. Current vent settings of 12/500/35/5. Patient remains on dopamine for pressors and not on any sedatives. No purposeful movements upon sternal rub. Patient's chart, labs, images were reviewed and discussed with RN 10/12/21 Patient seen and examined bedside. No acute events overnight. Patient extubated this afternoon and appears comfortable. Maintaining his own without any pain. No pressors at this time. Patient's chart, labs, images were reviewed and discussed with RN. 10/14/2021 No acute events overnight. Patient seen and examined bedside. No respiratory distress and appears comfortable. Minimal secretions. Would not recommend PEG tube placement for TPN. Patient may participate with pleasure feedings with assistance if able to wake up and intake food. Family does not want the patient to starve. Pending family discussion for patient pleasure feeding and possibly home hospice. Patient's chart, labs, images were reviewed and discussed with RN 10/15/2021 No acute events overnight. Patient seen and examined bedside appears comfortable. No respiratory distress or copious secretions. Apparently, family does want a PEG tube placed. We will plan on home with hospice after PEG tube is in place. GI consulted. Patient's chart, labs, images were reviewed and discussed with RN 10/16/2021 No acute events overnight. Patient appears comfortable at bedside. Waiting for family meeting for discussion of futility of nutrition or any further aggressive procedures. Patient's chart, labs, images were reviewed and discussed with RN 10/17/2021 Patient appears comfortable still on IV Keppra. No agonal respirations or copious secretions. Family will proceed with aggressive procedures. Social work working with family for for possible healthcare resort with hospice. Please see social work's notes for details. Patient's chart, labs, images were reviewed and discussed with RN 10/18/2021 No acute events overnight. Patient appears comfortable. IV started today to continue with IV Keppra. Patient's chart, labs, images were reviewed and discussed with RN Vitals/I&O Vitals/I&O: Vital Signs Date Time Temp Pulse Resp B/P (MAP) Pulse Ox O2 Delivery O2 Flow Rate FiO2 10/18/21 11:00 99.1 105 32 141/63 (89) 83 Room Air 99.1 10/17/21 10:58 1.0 I & O 10/17/21 10/17/21 10/18/21 15:00 23:00 07:00 Output Total 600 ml Balance -600 ml Physical Exam General: No acute distress Heart: Regular rate Lungs: Crackles Abdomen: Soft, No tenderness Extremities: No clubbing, No cyanosis, No edema, Normal pulses, No tenderness/swelling Skin: No rashes, No breakdown, Other (Extensive bruising to anterior chest wall) Comment Review of Relevant I have reviewed the following items ivania (where applicable) has been applied. Justifications for Admission Chest Pain Indications Respiratory Distress?: Yes Justification for admission: Patient's respiratory distress as indicated by (SOB/tachypnea/abnormal breathing pattern plus hypoxemia/AMS/other evidence of respiratory compromise such as pulmonary edema on chest x-ray) will need inpatient level of care. Serious Diagnosis?: Yes Justification for admission: Chest pain may be indicative of potentially serious diagnosis/diagnoses Please state condition(s) which will require inpatient level of care for further evaluation and management. Other Justification EMILY HARRIS MD Oct 18, 2021 11:55
[2021-10-18 15:00] VITALS: BP 140/61
[2021-10-18] MEDS: ACETAMINOPHEN 650 MG SUPP.RECT. PR PRN (15:33)
[2021-10-18] MEDS: MORPHINE SULFATE 2 MG/ML INJ. IV PRN (18:00)
[2021-10-18] MEDS ORDERED: DEXAMETHASONE SOD PHOS 4 MG/ML VIAL IVP ONE (18:00)
[2021-10-18 19:15] VITALS: BP 154/72
[2021-10-18 22:53] VITALS: BP 143/82
[2021-10-19 07:00] VITALS: BP 133/56
[2021-10-19] MEDS: FAMOTIDINE 20 MG/2 ML VIAL IVP SCH ×2 (08:17→21:37)
[2021-10-19] MEDS: SCOPOLAMINE 1.5MG PATCH. TD SCH (08:17)
[2021-10-19] MEDS: levETIRAcetam 500 MG in IV DEXTROSE 5% 100ML 100 ML IV SCH ×2 (08:18→20:19)
--- NOTE | 2021-10-19 10:00 | PDOC ---
[employer] PROGRESS NOTE Date of Service DOS: DATE: 10/19/21 TIME: 09:59 Chief Complaint Chief Complaint A/P: Acute hypoxic respiratory failure - likely due to aspiration pneumonia from vomiting likely from symptomatic 3rd degree heart block. Extubated and currently on comfort care/hospice PEA arrest - likely from above aspiration event, complicated by 3rd degree heart block. ROSC obtained Third degree heart block - s/p PPM generator change with apparent recovery of heart rate. Abnormal chest CT - likely due to due to pneumonia Nausea and vomiting - likely from CHB, will treat for pneumonia, will rule out other infectious etiology. IV anti-emetics Fall - second fall in a week. If neurologic recovery occurs needs gait testing, though likely this was related to cardiac event Closed head injury - posterior scalp abrasion, local wound care. Monitor neurologic function. Anemia - will check iron studies, likely of chronic disease Thrombocytopenia - unclear etiology, will trend EDWIN - likely vasomotor nephropathy from arrest. Family does not know of any history of CKD, will order [facility] records Lactic acidosis - likely due to hypoxia, will trend Transaminitis - likely related to shock liver, will monitor Elevated trop - demand ischemia from 3rd degree heart block, likely, will trend out. HTN - will add back home meds as BP allows HLD - statin when taking PO FEN - NPO. NGT feed Vital AF @ 40 ml/hr and free water flushes 200 ml q 6 PPX - pepcid, lovenox CODE - partial - no chest compressions Dispo - ICU. Patient family arrived next 24 hours to discuss ongoing plan. Addendum: I have discussed with bryn Painting and Seng Felix about overall goals of care and they have requested to "wait another week". Have advised him of the potential risks of ventilator associated pneumonia bedsores and other potential infections and have recommended after 14 days on the ventilator to consider tracheostomy and feeding tube if they want to continue care also offered palliative care and hospice care they are still precontemplative and do not want to move forward with any surgical procedures. They have made it clear if he does have a cardiac arrest he would not like chest compressions and would not like to be on the ventilator for "a year History of Present Illness History of Present Illness Mr Cerda is an 86-year-old male with PMHx HTN, HLD s/p PPM who presented to [facility] in [place] via EMS after a PEA cardiac arrest. Per his son, he was at home and in the presence of son and son-in-law when he was observed actively choking and subsequently falling on the floor with significant amount of emesis that was nonbloody and nonbilious in nature. Son reports vomit with recently ingested food and laying his father on his side and cleaning out his mouth while son-in-law called EMS. On EMS arrival ~3 minutes later, patient was unresponsive and cyanotic and they intubated. En-route patient was found to be pulseless in PEA and appropriate ACLS measures were followed with application of Howard device for chest compressions, and per report had a total of x2 epinephrine administered via left tibial IO. After approximately 5 minutes ROSC was obtained. In ED was noted unresponsive with pinpoint pupils and GCS 3 with no purposeful movements. Per EMS report and son the patient takes Plavix, lisinopril, rosuvastatin and citalopram at home. He has a pacemaker per son, which was placed in [place] over 10 years ago, and the son says he follows at [facility], doesn't know about pacer follow up. Per son he fell 4 days prior and [facility] noted on his [facility]iput. Family notes he has been more weak than usual over past 72 hours, no travel or sick contacts. Is fully vaccinated against COVID 19. EKG appeared with third-degree heart block at 42 bpm, left axis deviation, T wave inversion noted in lead I, III, V2-6, no STEMI Vitals obtained concerning for marked bradycardia and no respiratory effort Labs with WBC 9.1, Hb 11.4, platelets 128, ABG 7.2 7/42/459 on 100% FiO2, rapid COVID-19 negative, NA 137, K4.2, BUN 50, CR 2, glucose 247, lactic acid 8.6, calcium 8.6, bilirubin 0.6, AST 131, ALT 157, alkaline phosphatase 90, ammonia 25, albumin 3, troponin 0.134, INR 1.1, urinalysis bland. CT head and neck with no acute abnormalities. CT chest with bibasilar infiltrates and NGT and ETT in good positioning. monitor technician concerning for third-degree heart block, with rate in the 20s, therefore 1 mg epinephrine administered with minimal improvement in HR, then 1 mg atropine without significant improvement, then dopamine gtt without sustained improvement. 3 L IV fluid administered and unasyn for aspiration pneumonitis. Ultimately was responsive to transcutaneous pacing and after discussion with cardiology he was transferred to [facility] for further care. 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 Seen in ICU. Discussed with son bedside. 09/23: Afebrile, on vent with FiO2 50%, PEEP 5. Continue dopamine gtt. We will continue Unasyn for aspiration pneumonia. Chest x-ray showed suspected partially consolidated left lower lobe infiltrate superimposed on right lower and bilateral upper lobe multifocal interstitial infiltrate.. Critical care time 30 minutes spent reviewing charts, general labs, reviewing imaging, and discussion with RN. 09/24: Afebrile. On vent with FiO2 40%, PEEP 5. Remains on pressor support. Off dopamine. Will continue Unasyn for pneumonia. Continue to wean off vent. Critical care time 30 minutes spent reviewing charts, general labs, reviewing imaging, discussion with Dr. Mcdaniel. 09/25: Low-grade fever overnight, T-max 100.6 F. On vent with FiO2 35%, PEEP 5. Chest x-ray yesterday showed diffuse increased interstitial opacity likely due to interstitial infiltrate. Continue IV antibiotics. He has been off sedat ion for the past 24 hours. Platelets have steadily dropped; platelets 89 today. I discussion with daughter and son-in-law by phone about concerns for worsening bruising and, cytopenia. They are agreeable to no chest compressions, as to not cause any further damage that may lead to prolonged intubation. We will continue to wean off ventilator. 30 minutes critical care time spent reviewing charts, reviewing labs, reviewing imaging, discussion with RN, and discussion with Dr. Ortiz. 09/26: Afebrile. On vent with FiO2 35%, PEEP 5. Chest x-ray today showing stable diffuse interstitial infiltrate. Platelets [address] Brand was consulted yesterday; he is discussed with family the likely poor prognosis. Sister wants to fly in from [place] to see him. Family would like DNR but chemical code; son-in-law will discuss with the rest of family. Critical care time 30 minutes spent reviewing chart, reviewing labs, reviewing imaging, discussing with Dr. Ortiz. 10/30: Afebrile; on vent with FiO2 50%, PEEP 5. Off. For 72 hours. Some spontaneous movements noted this morning. I believe family is flying in from [place] to see him prior to making full DNR; chemical code. Critical care time 30 minutes spent reviewing charts, general labs, reviewing imaging, and discussion with RN. 09/28: Febrile overnight, T-max 102.0 F. 09/29: Patient evaluated examined at bedside. Remains off sedation. But still pretty unresponsive. Absent brainstem reflexes. Will attempt to contact family today to see if they are in fact coming in from [place]. Still on Levophed and dopamine. 09/30: Patient evaluated and examined at bedside. Still off sedation and unresponsive. Still on Levophed for blood pressure support. Family supposed to arrive today for discussion of ongoing care. 10/01: Patient evaluated and examined at bedside. Still intubated and unresponsive. Requiring pressors. Talk to patient's son on phone today for 15 minutes discussing advanced care planning. He reported that she has not been able to discuss ongoing care with his sister as she works in the afternoons and he works in the evenings. Provided clinical updates to him told him about no real improvement at this point. Still remains on high ventilator settings. 10/02: Patient evaluated examined at bedside. Still intubated minimally responsive even without sedation. Waiting for son to arrive at bedside for care discussion. Otherwise continuing current plans. I spent 35 minutes critical care time reviewing charts labs imaging and discussion with subspecialist and nursing team. 10/03: Patient evaluated examined at bedside. I discussed with the family yesterday for approximately 35 minutes ongoing care plans. During that time patient did have some extremity movement along with some head movement showing discomfort from the ventilator. With this family would like to continue care for now. I spoke with them again at bedside today and that they would like to continue on until at least tomorrow evening. Still think very poor prognosis. However will honor family wishes. Plan of care discussed with bedside RN. I spent 35 minutes critical care time reviewing charts labs imaging and discussion with specialists and nursing team 10/04: Patient evaluated at bedside. Still with some movements in his extremities. Still intubated minimally responsive despite being off sedation for over a week. Continue discussion of goals with family. 35 minutes critical care time. 10/05: Patient evaluated examined at bedside. Hyponatremic this morning on review does appear his sodium has been creeping up. We will increase free water flushes. Family continues discussing goals of care. Here to provide them any information needed. 33 minutes critical care time 10/06: Overnight no events. NA 149, K3.4, Hb 9.5. No meaningful movement off sedation over a week. 10/07: Overnight afebrile. Withdraws from pain requiring great toe reflex is breathing over the ventilator. Brainstem reflexes intact seems to be anoxic brain injury. discussed with family over the phone the asked for an additional week. I encouraged consideration of comfort care offered tracheostomy and PEG a do not want surgical interventions at this time 10/08: NA 142 today. On vent 35% FiO2 PEEP of 5 O2 saturations 100%. Has doll's eyes no meaningful movement does withdraw from painful stimuli. Babinski bilaterally. Afebrile 10/09: Afebrile overnight. On vent 35% FiO2 PEEP 5 with O2 saturations 96%. Still with no movement today withdrawal from painful stimuli Babinski bilaterally. Meeting at [address] Price from pulmonology, plan to withdraw care on 10/12/2021 when daughter arrives 10/10T-max 100.1 F overnight. On vent 35% FiO2 PEEP 5, O2 saturations 96%. Still with no purposeful movement withdraws from painful stimuli bilateral Babinski 10/11/2021 No acute events overnight. Patient seen and examined bedside. Current vent settings of 12/500/35/5. Patient remains on dopamine for pressors and not on any sedatives. No purposeful movements upon sternal rub. Patient's chart, labs, images were reviewed and discussed with RN 10/12/21 Patient seen and examined bedside. No acute events overnight. Patient extubated this afternoon and appears comfortable. Maintaining his own without any pain. No pressors at this time. Patient's chart, labs, images were reviewed and discussed with RN. 10/14/2021 No acute events overnight. Patient seen and examined bedside. No respiratory distress and appears comfortable. Minimal secretions. Would not recommend PEG tube placement for TPN. Patient may participate with pleasure feedings with assistance if able to wake up and intake food. Family does not want the patient to starve. Pending family discussion for patient pleasure feeding and possibly home hospice. Patient's chart, labs, images were reviewed and discussed with RN 10/15/2021 No acute events overnight. Patient seen and examined bedside appears comfortable. No respiratory distress or copious secretions. Apparently, family does want a PEG tube placed. We will plan on home with hospice after PEG tube is in place. GI consulted. Patient's chart, labs, images were reviewed and discussed with RN 10/16/2021 No acute events overnight. Patient appears comfortable at bedside. Waiting for family meeting for discussion of futility of nutrition or any further aggressive procedures. Patient's chart, labs, images were reviewed and discussed with RN 10/17/2021 Patient appears comfortable still on IV Keppra. No agonal respirations or copious secretions. Family will proceed with aggressive procedures. Social work working with family for for possible healthcare resort with hospice. Please see social work's notes for details. Patient's chart, labs, images were reviewed and discussed with RN 10/18/2021 No acute events overnight. Patient appears comfortable. IV started today to continue with IV Keppra. Patient's chart, labs, images were reviewed and discussed with RN 10/19/2021 No acute events overnight. Patient is comfortable in bed. No dyspnea or agitation or hallucination. Patient's chart, labs, images were reviewed and discussed with RN Vitals/I&O Vitals/I&O: Vital Signs Date Time Temp Pulse Resp B/P (MAP) Pulse Ox O2 Delivery O2 Flow Rate FiO2 10/19/21 08:00 Room Air 10/19/21 07:00 97.9 79 24 133/56 (81) 88 97.9 I & O 10/18/21 10/18/21 10/19/21 15:00 23:00 07:00 Output Total 30 ml 50 ml Balance -30 ml -50 ml Physical Exam General: No acute distress Heart: Regular rate Lungs: Crackles Abdomen: Soft, No tenderness Extremities: No clubbing, No cyanosis, No edema, Normal pulses, No tenderness/swelling Skin: No rashes, No breakdown, Other (Extensive bruising to anterior chest wall) Comment Review of Relevant I have reviewed the following items ivania (where applicable) has been applied. Medications: Current Medications Medications (Trade) Dose Ordered Sig/Subha Route PRN Reason Start Time Stop Time Status Last Admin Dose Admin Dexamethasone Sodium Phosphate (Decadron) 4 mg 1X ONCE IVP 10/18/21 18:00 10/18/21 18:01 DC 10/18/21 17:59 Justifications for Admission Chest Pain Indications Respiratory Distress?: Yes Justification for admission: Patient's respiratory distress as indicated by (SOB/tachypnea/abnormal breathing pattern plus hypoxemia/AMS/other evidence of respiratory compromise such as pulmonary edema on chest x-ray) will need inpatient level of care. Serious Diagnosis?: Yes Justification for admission: Chest pain may be indicative of potentially serious diagnosis/diagnoses Please state condition(s) which will require inpatient level of care for further evaluation and management. Other Justification EMILY HARRIS MD Oct 19, 2021 10:00
[2021-10-19 19:00] VITALS: BP 151/61
[2021-10-20 07:00] VITALS: BP 112/55
[2021-10-20] MEDS: levETIRAcetam 500 MG in IV DEXTROSE 5% 100ML 100 ML IV SCH ×2 (08:15→21:19)
[2021-10-20] MEDS: FAMOTIDINE 20 MG/2 ML VIAL IVP SCH ×2 (08:15→21:19)
--- NOTE | 2021-10-20 08:32 | PDOC ---
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, none since starting levetiracetam Plan Family decided against PEG I left a message with the patient's daughter 10/17, no call back Levetiracetam Scopolamine Comfort care Subjective None Objective Vital Signs Date Time Temp Pulse Resp B/P (MAP) Pulse Ox O2 Delivery O2 Flow Rate FiO2 10/20/21 07:36 Room Air 10/20/21 07:00 98.5 73 18 112/55 (74) 95 98.5 Intake and Output 10/20/21 07:00 Intake Total 0 ml Output Total 825 ml Balance -825 ml Intake Oral 0 ml Output Urine Total 825 ml PHYSICAL EXAM Appears comfortable, end-of-life respirations Extubated, eyes closed, no response to voice, postures a little to pain PERRL. CN: no focal findings. Muscle tone: normal. Muscle strength: Slight withdrawal to pain on the right DTR: 1+ Plantar reflex: Silent Gait: not examined. Sensory exam: Not cooperative. Cerebellar: Not cooperative Review of Relevant I have reviewed the following items ivania (where applicable) has been applied. Medications Current Medications Fentanyl Citrate 30 ml @ 2.5 mls/hr CONT PRN IV SEE PROTOCOL Last administered on 09/24/21at 04:21; Start 09/22/21 at 18:00; Stop 10/06/21 at 08:56; Status DC Midazolam HCl 100 ml @ 1 mls/hr CONT PRN IV SEE PROTOCOL Last administered on 09/24/21at 04:21; Start 09/22/21 at 18:00; Stop 10/06/21 at 08:56; Status DC Propofol 100 ml @ 2.244 mls/ hr CONT PRN IV PER PROTOCOL Last administered on 09/22/21at 17:39; Start 09/22/21 at 18:00; Stop 10/06/21 at 08:56; Status DC Sodium Chloride 500 ml @ 500 mls/hr 1X PRN PRN IV SEE COMMENTS; Start 09/22/21 at 18:00 Atropine Sulfate (ATROPINE 0.5mg SYRINGE) 0.5 mg PRN Q5MIN PRN IV SEE COMMENTS; Start 09/22/21 at 18:00; Status Cancel Famotidine (Pepcid Vial) 20 mg BID IVP Last administered on 09/22/21at 21:58; Start 09/22/21 at 21:00; Stop 09/23/21 at 08:32; Status DC Midazolam HCl (Versed) 2 mg 1X ONCE IV Last administered on 09/22/21at 18:15; Start 09/22/21 at 18:15; Stop 09/22/21 at 18:16; Status DC Lidocaine/ Epinephrine (LIDOCAINE 2%-EPI 1:100,000 multi-dose) 20 ml 1X ONCE IJ Last administered on 09/22/21at 18:17; Start 09/22/21 at 18:15; Stop 09/22/21 at 18:16; Status DC Cefazolin Sodium (Ancef) 1 gm 1X ONCE IVP Last administered on 09/22/21at 18:15; Start 09/22/21 at 18:15; Stop 09/22/21 at 18:16; Status DC Propofol 100 ml @ 2.244 mls/ hr CONT PRN IV PER PROTOCOL; Start 09/22/21 at 18:15; Status UNV Ondansetron HCl (Zofran) 4 mg PRN Q4HRS PRN IVP NAUSEA/VOMITING; Start 09/22/21 at 18:45 Acetaminophen (Tylenol Supp) 650 mg PRN Q6HRS PRN NV MILD PAIN / TEMP > 100.3'F Last administered on 10/18/21at 15:33; Start 09/22/21 at 18:45 Bisacodyl (Dulcolax Supp) 10 mg PRN DAILY PRN NV CONSTIPATION; Start 09/22/21 at 18:45 Promethazine HCl (Phenergan Supp) 12.5 mg PRN Q6HRS PRN NV NAUSEA/VOMITING; Start 09/22/21 at 18:45 Ampicillin Sodium/ Sulbactam Sodium 3 gm/Sodium Chloride 100 ml @ 200 mls/hr Q6HRS IV Last administered on 09/25/21at 12:21; Start 09/22/21 at 18:45; Stop 09/25/21 at 16:21; Status DC Dopamine HCl/ Dextrose 250 ml @ 28.05 mls/ hr CONT PRN IV SEE I/O RECORD Last administered on 09/23/21at 08:44; Start 09/22/21 at 18:45; Stop 10/13/21 at 09:59; Status DC Lidocaine/ Epinephrine (LIDOCAINE 2%-EPI 1:100,000 multi-dose) 20 ml STK-MED ONCE .ROUTE ; Start 09/22/21 at 18:53; Stop 09/22/21 at 18:53; Status DC Midazolam HCl (Versed) 2 mg STK-MED ONCE .ROUTE ; Start 09/22/21 at 18:53; Stop 09/22/21 at 18:53; Status DC Cefazolin Sodium (Ancef) 1 gm STK-MED ONCE IVP ; Start 09/22/21 at 18:53; Stop 09/22/21 at 18:53; Status DC Fentanyl Citrate (Fentanyl 2ml Vial) 25 mcg PRN Q3HRS PRN IVP SEVERE PAIN 7-10; Start 09/22/21 at 21:30; Status Cancel Famotidine (Pepcid Vial) 20 mg DAILY IVP Last administered on 10/03/21at 08:56; Start 09/23/21 at 09:00; Stop 10/03/21 at 11:35; Status DC Heparin Sodium (Porcine) (Heparin Sodium) 5,000 unit Q12HR SQ Last administered on 09/23/21at 20:45; Start 09/23/21 at 21:00; Stop 09/23/21 at 22:59; Status DC Norepinephrine Bitartrate 8 mg/ Dextrose 258 ml @ 13.971 mls/ hr CONT PRN IV PER PROTOCOL Last administered on 09/23/21at 22:14; Start 09/23/21 at 11:45; Stop 10/13/21 at 09:59; Status DC Ampicillin Sodium/ Sulbactam Sodium 3 gm/Sodium Chloride 100 ml @ 200 mls/hr Q12HR IV Last administered on 09/28/21at 07:52; Start 09/25/21 at 21:00; Stop 09/28/21 at 13:20; Status DC Levetiracetam 500 mg/Dextrose 105 ml @ 420 mls/hr Q12HR IV Last administered on 10/20/21at 08:15; Start 09/26/21 at 04:00 Furosemide (Lasix) 20 mg 1X ONCE IVP Last administered on 09/26/21at 13:15; Start 09/26/21 at 13:15; Stop 09/26/21 at 13:16; Status DC Ampicillin Sodium/ Sulbactam Sodium 3 gm/Sodium Chloride 100 ml @ 200 mls/hr Q6HRS IV Last administered on 10/06/21at 05:59; Start 09/28/21 at 18:00; Stop 10/06/21 at 08:56; Status DC Acetaminophen (Tylenol) 650 mg PRN Q6HRS PRN PEG MILD PAIN / TEMP > 100.3'F Last administered on 09/30/21at 20:52; Start 09/29/21 at 09:45; Stop 10/13/21 at 10:00; Status DC Famotidine (Pepcid Vial) 20 mg BID IVP Last administered on 10/20/21at 08:15; Start 10/03/21 at 21:00 Morphine Sulfate (Morphine Sulfate) 2 mg PRN Q15MIN PRN IV PAIN Last admi nistered on 10/18/21at 18:00; Start 10/12/21 at 14:30 Lorazepam (Ativan Inj) 2 mg PRN Q1HR PRN IVP ANXIETY / AGITATION Last ad ministered on 10/17/21at 10:27; Start 10/12/21 at 14:30 Scopolamine (Transderm-Scop) 1 patch Q3DAYS TD Last administered on 10/19/21at 08:17; Start 10/13/21 at 09:00 Dexamethasone Sodium Phosphate (Decadron) 4 mg 1X ONCE IVP Last administered on 10/18/21at 17:59; Start 10/18/21 at 18:00; Stop 10/18/21 at 18:01; Status DC Active Scripts Active Reported Urea 227 Gm Cream..g. 1 Tata TP DAILY 30 Days Crestor (Rosuvastatin Calcium) 40 Mg Tablet 1 Tab PO DAILY Namenda (Memantine Hcl) 10 Mg Tablet 1 Tab PO BID Pantoprazole Sodium (Pantoprazole Sodium) 40 Mg Tablet.dr 40 Mg PO DAILYAC Lisinopril 40 Mg Tablet 0.5 Tab PO DAILY Levothyroxine Sodium 50 Mcg Tablet 1 Tab PO DAILY Xolegel (Ketoconazole) 45 Gm Gel..gram. 1 Tata TP BID 30 Days Isosorbide Mononitrate Er (Isosorbide Mononitrate) 60 Mg Tab.er.24h 1 Tab PO DAILY Hydrophor Ointment (Mineral Oil/Hydrophil Petrolat) 454 Gm Oint...g. 454 Gm TP PRN PRN Zetia (Ezetimibe) 10 Mg Tablet 1 Tab PO DAILY 30 Days Donepezil Hcl 10 Mg Tablet 1 Tab PO DAILY Clopidogrel (Clopidogrel Bisulfate) 75 Mg Tablet 75 Mg PO DAILY Celexa (Citalopram Hydrobromide) 40 Mg Tablet 1 Tab PO DAILY Vitamin D3 (Vitamin D) 25 Mcg Tablet 25 Mcg PO DAILY 1,000 UNITS = 25 MCG Thera Tears (Carboxymethylcellulose Sodium) 15 Ml Drops 1 Drop EACHEYE QID Atenolol 25 Mg Tablet 1 Tab PO DAILY Amlodipine Besylate 5 Mg Tablet 5 Mg PO DAILY Vitals/I & O Vital Sign - Last 24 Hours 10/19/21 10/19/21 10/20/21 10/20/21 19:00 20:00 07:00 07:36 Temp 98.1 98.5 98.1 98.5 Pulse 75 73 Resp 24 18 B/P (MAP) 151/61 (91) 112/55 (74) Pulse Ox 90 95 O2 Delivery Room Air Room Air Room Air Room Air Intake and Output 10/19/21 10/19/21 10/20/21 15:00 23:00 07:00 Intake Total 0 ml Output Total 625 ml 200 ml Balance -625 ml -200 ml Justicifation of Admission Dx: Justifications for Admission: Justification of Admission Dx: N/A BRIDGETTE ROLAND MD Oct 20, 2021 08:32
[2021-10-20] MEDS: MORPHINE SULFATE 2 MG/ML INJ. IV PRN ×3 (10:01→12:25)
--- NOTE | 2021-10-20 10:23 | NUR ---
SW following. Discussed with RN, SW left voicemail from Siria Clements at the [facility] to determine progress on GIP etc. Awaiting return call. Per discussion with Edith FRASER) family refusing to take pt home, nor do they want pt to be in a half-way with hospice. SW will continue to follow.
--- NOTE | 2021-10-20 10:44 | PDOC ---
[employer] PROGRESS NOTE Date of Service DOS: DATE: 10/20/21 TIME: 10:42 Chief Complaint Chief Complaint A/P: Acute hypoxic respiratory failure - likely due to aspiration pneumonia from vomiting likely from symptomatic 3rd degree heart block. Extubated and currently on comfort care/hospice PEA arrest - likely from above aspiration event, complicated by 3rd degree heart block. ROSC obtained Third degree heart block - s/p PPM generator change with apparent recovery of heart rate. Abnormal chest CT - likely due to due to pneumonia Nausea and vomiting - likely from CHB, will treat for pneumonia, will rule out other infectious etiology. IV anti-emetics Fall - second fall in a week. If neurologic recovery occurs needs gait testing, though likely this was related to cardiac event Closed head injury - posterior scalp abrasion, local wound care. Monitor neurologic function. Anemia - will check iron studies, likely of chronic disease Thrombocytopenia - unclear etiology, will trend EDWIN - likely vasomotor nephropathy from arrest. Family does not know of any history of CKD, will order [facility] records Lactic acidosis - likely due to hypoxia, will trend Transaminitis - likely related to shock liver, will monitor Elevated trop - demand ischemia from 3rd degree heart block, likely, will trend out. HTN - will add back home meds as BP allows HLD - statin when taking PO FEN - NPO. NGT feed Vital AF @ 40 ml/hr and free water flushes 200 ml q 6 PPX - pepcid, lovenox CODE - partial - no chest compressions Dispo - ICU. Patient family arrived next 24 hours to discuss ongoing plan. Addendum: I have discussed with bryn Painting and Seng Felix about overall goals of care and they have requested to "wait another week". Have advised him of the potential risks of ventilator associated pneumonia bedsores and other potential infections and have recommended after 14 days on the ventilator to consider tracheostomy and feeding tube if they want to continue care also offered palliative care and hospice care they are still precontemplative and do not want to move forward with any surgical procedures. They have made it clear if he does have a cardiac arrest he would not like chest compressions and would not like to be on the ventilator for "a year History of Present Illness History of Present Illness Mr Cerda is an 86-year-old male with PMHx HTN, HLD s/p PPM who presented to [place] [facility] in [place] via EMS after a PEA cardiac arrest. Per his son, he was at home and in the presence of son and son-in-law when he was observed actively choking and subsequently falling on the floor with significant amount of emesis that was nonbloody and nonbilious in nature. Son reports vomit with recently ingested food and laying his father on his side and cleaning out his mouth while son-in-law called EMS. On EMS arrival ~3 minutes later, patient was unresponsive and cyanotic and they intubated. En-route patient was found to be pulseless in PEA and appropriate ACLS measures were followed with application of Howard device for chest compressions, and per report had a total of x2 epinephrine administered via left tibial IO. After approximately 5 minutes ROSC was obtained. In ED was noted unresponsive with pinpoint pupils and GCS 3 with no purposeful movements. Per EMS report and son the patient takes Plavix, lisinopril, rosuvastatin and citalopram at home. He has a pacemaker per son, which was placed in [place] over 10 years ago, and the son says he follows at [facility], doesn't know about pacer follow up. Per son he fell 4 days prior and [facility], noted on his occiput. Family notes he has been more weak than usual over past 72 hours, no travel or sick contacts. Is fully vaccinated against COVID 19. EKG appeared with third-degree heart block at 42 bpm, left axis deviation, T wave inversion noted in lead I, III, V2-6, no STEMI Vitals obtained concerning for marked bradycardia and no respiratory effort Labs with WBC 9.1, Hb 11.4, platelets 128, ABG 7.2 7/42/459 on 100% FiO2, rapid COVID-19 negative, NA 137, K4.2, BUN 50, CR 2, glucose 247, lactic acid 8.6, calcium 8.6, bilirubin 0.6, AST 131, ALT 157, alkaline phosphatase 90, ammonia 25, albumin 3, troponin 0.134, INR 1.1, urinalysis bland. CT head and neck with no acute abnormalities. CT chest with bibasilar infiltrates and NGT and ETT in good positioning. credit associate concerning for third-degree heart block, with rate in the 20s, therefore 1 mg epinephrine administered with minimal improvement in HR, then 1 mg atropine without significant improvement, then dopamine gtt without sustained improvement. 3 L IV fluid administered and unasyn for aspiration pneumonitis. Ultimately was responsive to transcutaneous pacing and after discussion with cardiology he was transferred to [facility] for further care. To cork slabs sawyer prior to my assessment, had pacemaker generator replaced emergently. Seen in ICU. Discussed with son bedside. 09/23: Afebrile, on vent with FiO2 50%, PEEP 5. Continue dopamine gtt. We will continue Unasyn for aspiration pneumonia. Chest x-ray showed suspected partially consolidated left lower lobe infiltrate superimposed on right lower and bilateral upper lobe multifocal interstitial infiltrate.. Critical care time 30 minutes spent reviewing charts, general labs, reviewing imaging, and discussion with RN. 09/24: Afebrile. On vent with FiO2 40%, PEEP 5. Remains on pressor support. Off dopamine. Will continue Unasyn for pneumonia. Continue to wean off vent. Critical care time 30 minutes spent reviewing charts, general labs, reviewing imaging, discussion with Dr. Mcdaniel. 09/25: Low-grade fever overnight, T-max 100.6 F. On vent with FiO2 35%, PEEP 5. Chest x-ray yesterday showed diffuse increased interstitial opacity likely due to interstitial infiltrate. Continue IV antibiotics. He has been off sedat ion for the past 24 hours. Platelets have steadily dropped; platelets 89 today. I discussion with daughter and son-in-law by phone about concerns for worsening bruising and, cytopenia. They are agreeable to no chest compressions, as to not cause any further damage that may lead to prolonged intubation. We will continue to wean off ventilator. 30 minutes critical care time spent reviewing charts, reviewing labs, reviewing imaging, discussion with RN, and discussion with Dr. Ortiz. 09/26: Afebrile. On vent with FiO2 35%, PEEP 5. Chest x-ray today showing stable diffuse interstitial infiltrate. Platelets [address] Brand was consulted yesterday; he is discussed with family the likely poor prognosis. Sister wants to fly in from [place] to see him. Family would like DNR but chemical code; son-in-law will discuss with the rest of family. Critical care time 30 minutes spent reviewing chart, reviewing labs, reviewing imaging, discussing with Dr. Ortiz. 10/30: Afebrile; on vent with FiO2 50%, PEEP 5. Off. For 72 hours. Some spontaneous movements noted this morning. I believe family is flying in from [place] to see him prior to making full DNR; chemical code. Critical care time 30 minutes spent reviewing charts, general labs, reviewing imaging, and discussion with RN. 09/28: Febrile overnight, T-max 102.0 F. 09/29: Patient evaluated examined at bedside. Remains off sedation. But still pretty unresponsive. Absent brainstem reflexes. Will attempt to contact family today to see if they are in fact coming in from [place]. Still on Levophed and dopamine. 09/30: Patient evaluated and examined at bedside. Still off sedation and unresponsive. Still on Levophed for blood pressure support. Family supposed to arrive today for discussion of ongoing care. 10/01: Patient evaluated and examined at bedside. Still intubated and unresponsive. Requiring pressors. Talk to patient's son on phone today for 15 minutes discussing advanced care planning. He reported that she has not been able to discuss ongoing care with his sister as she works in the afternoons and he works in the evenings. Provided clinical updates to him told him about no real improvement at this point. Still remains on high ventilator settings. 10/02: Patient evaluated examined at bedside. Still intubated minimally responsive even without sedation. Waiting for son to arrive at bedside for care discussion. Otherwise continuing current plans. I spent 35 minutes critical care time reviewing charts labs imaging and discussion with subspecialist and nursing team. 10/03: Patient evaluated examined at bedside. I discussed with the family yesterday for approximately 35 minutes ongoing care plans. During that time patient did have some extremity movement along with some head movement showing discomfort from the ventilator. With this family would like to continue care for now. I spoke with them again at bedside today and that they would like to continue on until at least tomorrow evening. Still think very poor prognosis. However will honor family wishes. Plan of care discussed with bedside RN. I spent 35 minutes critical care time reviewing charts labs imaging and discussion with specialists and nursing team 10/04: Patient evaluated at bedside. Still with some movements in his extremities. Still intubated minimally responsive despite being off sedation for over a week. Continue discussion of goals with family. 35 minutes critical care time. 10/05: Patient evaluated examined at bedside. Hyponatremic this morning on review does appear his sodium has been creeping up. We will increase free water flushes. Family continues discussing goals of care. Here to provide them any information needed. 33 minutes critical care time 10/06: Overnight no events. NA 149, K3.4, Hb 9.5. No meaningful movement off sedation over a week. 10/07: Overnight afebrile. Withdraws from pain requiring great toe reflex is breathing over the ventilator. Brainstem reflexes intact seems to be anoxic brain injury. discussed with family over the phone the asked for an additional week. I encouraged consideration of comfort care offered tracheostomy and PEG a do not want surgical interventions at this time 10/08: NA 142 today. On vent 35% FiO2 PEEP of 5 O2 saturations 100%. Has doll's eyes no meaningful movement does withdraw from painful stimuli. Babinski bilaterally. Afebrile 10/09: Afebrile overnight. On vent 35% FiO2 PEEP 5 with O2 saturations 96%. Still with no movement today withdrawal from painful stimuli Babinski bilaterally. Meeting at [address] Price from pulmonology, plan to withdraw care on 10/12/2021 when daughter arrives 10/10T-max 100.1 F overnight. On vent 35% FiO2 PEEP 5, O2 saturations 96%. Still with no purposeful movement withdraws from painful stimuli bilateral Babinski 10/11/2021 No acute events overnight. Patient seen and examined bedside. Current vent settings of 12/500/35/5. Patient remains on dopamine for pressors and not on any sedatives. No purposeful movements upon sternal rub. Patient's chart, labs, images were reviewed and discussed with RN 10/12/21 Patient seen and examined bedside. No acute events overnight. Patient extubated this afternoon and appears comfortable. Maintaining his own without any pain. No pressors at this time. Patient's chart, labs, images were reviewed and discussed with RN. 10/14/2021 No acute events overnight. Patient seen and examined bedside. No respiratory distress and appears comfortable. Minimal secretions. Would not recommend PEG tube placement for TPN. Patient may participate with pleasure feedings with assistance if able to wake up and intake food. Family does not want the patient to starve. Pending family discussion for patient pleasure feeding and possibly home hospice. Patient's chart, labs, images were reviewed and discussed with RN 10/15/2021 No acute events overnight. Patient seen and examined bedside appears comfortable. No respiratory distress or copious secretions. Apparently, family does want a PEG tube placed. We will plan on home with hospice after PEG tube is in place. GI consulted. Patient's chart, labs, images were reviewed and discussed with RN 10/16/2021 No acute events overnight. Patient appears comfortable at bedside. Waiting for family meeting for discussion of futility of nutrition or any further aggressive procedures. Patient's chart, labs, images were reviewed and discussed with RN 10/17/2021 Patient appears comfortable still on IV Keppra. No agonal respirations or copious secretions. Family will proceed with aggressive procedures. Social work working with family for for possible healthcare resort with hospice. Please see social work's notes for details. Patient's chart, labs, images were reviewed and discussed with RN 10/18/2021 No acute events overnight. Patient appears comfortable. IV started today to continue with IV Keppra. Patient's chart, labs, images were reviewed and discussed with RN 10/19/2021 No acute events overnight. Patient is comfortable in bed. No dyspnea or agitation or hallucination. Patient's chart, labs, images were reviewed and discussed with RN 10/20/2021 No acute events overnight. Patient seen and examined bedside. Respiratory rate in the 20s. Having some agonal breathing. Discussed with nurse and given morphine. Patient's chart, labs, images were reviewed and discussed with RN Vitals/I&O Vitals/I&O: Vital Signs Date Time Temp Pulse Resp B/P (MAP) Pulse Ox O2 Delivery O2 Flow Rate FiO2 10/20/21 10:01 Room Air 10/20/21 07:00 98.5 73 18 112/55 (74) 95 98.5 I & O 10/19/21 10/19/21 10/20/21 15:00 23:00 07:00 Intake Total 0 ml Output Total 625 ml 200 ml Balance -625 ml -200 ml Physical Exam General: No acute distress Heart: Regular rate Lungs: Crackles Abdomen: Soft, No tenderness Extremities: No clubbing, No cyanosis, No edema, Normal pulses, No tenderness/swelling Skin: No rashes, No breakdown, Other (Extensive bruising to anterior chest wall) Comment Review of Relevant I have reviewed the following items ivania (where applicable) has been applied. Justifications for Admission Chest Pain Indications Respiratory Distress?: Yes Justification for admission: Patient's respiratory distress as indicated by (SOB/tachypnea/abnormal breathing pattern plus hypoxemia/AMS/other evidence of respiratory compromise such as pulmonary edema on chest x-ray) will need inpatient level of care. Serious Diagnosis?: Yes Justification for admission: Chest pain may be indicative of potentially serious diagnosis/diagnoses Please state condition(s) which will require inpatient level of care for further evaluation and management. Other Justification EMILY HARRIS MD Oct 20, 2021 10:44
[2021-10-20] MEDS: ACETAMINOPHEN 650 MG SUPP.RECT. PR PRN (11:28)
[2021-10-20] MEDS: MORPHINE SULFATE 4 MG/ML INJ. IV PRN ×2 (14:20→22:16)
[2021-10-20 19:00] VITALS: BP 94/43
[2021-10-21] MEDS: MORPHINE SULFATE 4 MG/ML INJ. IV PRN ×2 (05:53→08:24)
[2021-10-21] MEDS: ACETAMINOPHEN 650 MG SUPP.RECT. PR PRN (06:03)
[2021-10-21 07:00] VITALS: BP 113/48
[2021-10-21] MEDS: FAMOTIDINE 20 MG/2 ML VIAL IVP SCH ×2 (08:22→20:53)
[2021-10-21] MEDS: levETIRAcetam 500 MG in IV DEXTROSE 5% 100ML 100 ML IV SCH ×2 (08:22→20:28)
--- NOTE | 2021-10-21 10:17 | NUR ---
SW following. Discussed with RN, PEDRO left [facility] for [facility], Siria Cleemnts. Nils stating yesterday that pt is appropriate for [facility] but still need [facility]. PEDRO will continue to follow.
--- NOTE | 2021-10-21 11:16 | PDOC ---
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, none since starting levetiracetam Plan I understand we are awaiting from approval from the [place] for hospice Levetiracetam Scopolamine Comfort care I will follow at intervals Subjective None Objective Vital Signs Date Time Temp Pulse Resp B/P (MAP) Pulse Ox O2 Delivery O2 Flow Rate FiO2 10/21/21 08:57 Room Air 10/21/21 08:24 24 10/21/21 07:00 100.3 84 113/48 (69) 87 100.3 10/21/21 06:23 1.0 Intake and Output 10/21/21 07:00 Intake Total 0 ml Output Total 425 ml Balance -425 ml Intake Oral 0 ml Output Urine Total 425 ml PHYSICAL EXAM Appears comfortable, end-of-life respirations Extubated, eyes closed, no response to voice, postures a little to pain PERRL. CN: no focal findings. Muscle tone: normal. Muscle strength: Slight withdrawal to pain on the right DTR: 1+ Plantar reflex: Silent Gait: not examined. Sensory exam: Not cooperative. Cerebellar: Not cooperative Review of Relevant I have reviewed the following items ivania (where applicable) has been applied. Medications Current Medications Fentanyl Citrate 30 ml @ 2.5 mls/hr CONT PRN IV SEE PROTOCOL Last administered on 09/24/21at 04:21; Start 09/22/21 at 18:00; Stop 10/06/21 at 08:56; Status DC Midazolam HCl 100 ml @ 1 mls/hr CONT PRN IV SEE PROTOCOL Last administered on 09/24/21at 04:21; Start 09/22/21 at 18:00; Stop 10/06/21 at 08:56; Status DC Propofol 100 ml @ 2.244 mls/ hr CONT PRN IV PER PROTOCOL Last administered on 09/22/21at 17:39; Start 09/22/21 at 18:00; Stop 10/06/21 at 08:56; Status DC Sodium Chloride 500 ml @ 500 mls/hr 1X PRN PRN IV SEE COMMENTS; Start 09/22/21 at 18:00 Atropine Sulfate (ATROPINE 0.5mg SYRINGE) 0.5 mg PRN Q5MIN PRN IV SEE COMMENTS; Start 09/22/21 at 18:00; Status Cancel Famotidine (Pepcid Vial) 20 mg BID IVP Last administered on 09/22/21at 21:58; Start 09/22/21 at 21:00; Stop 09/23/21 at 08:32; Status DC Midazolam HCl (Versed) 2 mg 1X ONCE IV Last administered on 09/22/21at 18:15; Start 09/22/21 at 18:15; Stop 09/22/21 at 18:16; Status DC Lidocaine/ Epinephrine (LIDOCAINE 2%-EPI 1:100,000 multi-dose) 20 ml 1X ONCE IJ Last administered on 09/22/21at 18:17; Start 09/22/21 at 18:15; Stop 09/22/21 at 18:16; Status DC Cefazolin Sodium (Ancef) 1 gm 1X ONCE IVP Last administered on 09/22/21at 18:15; Start 09/22/21 at 18:15; Stop 09/22/21 at 18:16; Status DC Propofol 100 ml @ 2.244 mls/ hr CONT PRN IV PER PROTOCOL; Start 09/22/21 at 18:15; Status UNV Ondansetron HCl (Zofran) 4 mg PRN Q4HRS PRN IVP NAUSEA/VOMITING; Start 09/22/21 at 18:45 Acetaminophen (Tylenol Supp) 650 mg PRN Q6HRS PRN [place] MILD PAIN / TEMP > 100.3'F Last administered on 10/21/21at 06:03; Start 09/22/21 at 18:45 Bisacodyl (Dulcolax Supp) 10 mg PRN DAILY PRN [place] CONSTIPATION; Start 09/22/21 at 18:45 Promethazine HCl (Phenergan Supp) 12.5 mg PRN Q6HRS PRN [place] NAUSEA/VOMITING; Start 09/22/21 at 18:45 Ampicillin Sodium/ Sulbactam Sodium 3 gm/Sodium Chloride 100 ml @ 200 mls/hr Q6HRS IV Last administered on 09/25/21at 12:21; Start 09/22/21 at 18:45; Stop 09/25/21 at 16:21; Status DC Dopamine HCl/ Dextrose 250 ml @ 28.05 mls/ hr CONT PRN IV SEE I/O RECORD Last administered on 09/23/21at 08:44; Start 09/22/21 at 18:45; Stop 10/13/21 at 09:59; Status DC Lidocaine/ Epinephrine (LIDOCAINE 2%-EPI 1:100,000 multi-dose) 20 ml STK-MED ONCE .ROUTE ; Start 09/22/21 at 18:53; Stop 09/22/21 at 18:53; Status DC Midazolam HCl (Versed) 2 mg STK-MED ONCE .ROUTE ; Start 09/22/21 at 18:53; Stop 09/22/21 at 18:53; Status DC Cefazolin Sodium (Ancef) 1 gm STK-MED ONCE IVP ; Start 09/22/21 at 18:53; Stop 09/22/21 at 18:53; Status DC Fentanyl Citrate (Fentanyl 2ml Vial) 25 mcg PRN Q3HRS PRN IVP SEVERE PAIN 7-10; Start 09/22/21 at 21:30; Status Cancel Famotidine (Pepcid Vial) 20 mg DAILY IVP Last administered on 10/03/21at 08:56; Start 09/23/21 at 09:00; Stop 10/03/21 at 11:35; Status DC Heparin Sodium (Porcine) (Heparin Sodium) 5,000 unit Q12HR SQ Last administered on 09/23/21at 20:45; Start 09/23/21 at 21:00; Stop 09/23/21 at 22:59; Status DC Norepinephrine Bitartrate 8 mg/ Dextrose 258 ml @ 13.971 mls/ hr CONT PRN IV PER PROTOCOL Last administered on 09/23/21at 22:14; Start 09/23/21 at 11:45; Stop 10/13/21 at 09:59; Status DC Ampicillin Sodium/ Sulbactam Sodium 3 gm/Sodium Chloride 100 ml @ 200 mls/hr Q12HR IV Last administered on 09/28/21at 07:52; Start 09/25/21 at 21:00; Stop 09/28/21 at 13:20; Status DC Levetiracetam 500 mg/Dextrose 105 ml @ 420 mls/hr Q12HR IV Last administered on 10/21/21at 08:22; Start 09/26/21 at 04:00 Furosemide (Lasix) 20 mg 1X ONCE IVP Last administered on 09/26/21at 13:15; Start 09/26/21 at 13:15; Stop 09/26/21 at 13:16; Status DC Ampicillin Sodium/ Sulbactam Sodium 3 gm/Sodium Chloride 100 ml @ 200 mls/hr Q6HRS IV Last administered on 10/06/21at 05:59; Start 09/28/21 at 18:00; Stop 10/06/21 at 08:56; Status DC Acetaminophen (Tylenol) 650 mg PRN Q6HRS PRN PEG MILD PAIN / TEMP > 100.3'F Last administered on 09/30/21at 20:52; Start 09/29/21 at 09:45; Stop 10/13/21 at 10:00; Status DC Famotidine (Pepcid Vial) 20 mg BID IVP Last administered on 10/21/21at 08:22; Start 10/03/21 at 21:00 Morphine Sulfate (Morphine Sulfate) 2 mg PRN Q15MIN PRN IV PAIN Last administered on 10/20/21at 12:25; Start 10/12/21 at 14:30 Lorazepam (Ativan Inj) 2 mg PRN Q1HR PRN IVP ANXIETY / AGITATION Last administered on 10/21/21at 04:22; Start 10/12/21 at 14:30 Scopolamine (Transderm-Scop) 1 patch Q3DAYS TD Last administered on 10/19/21at 08:17; Start 10/13/21 at 09:00 Dexamethasone Sodium Phosphate (Decadron) 4 mg 1X ONCE IVP Last administered on 10/18/21at 17:59; Start 10/18/21 at 18:00; Stop 10/18/21 at 18:01; Status DC Morphine Sulfate (Morphine Sulfate) 4 mg PRN Q1HR PRN IV PAIN Last administered on 10/21/21at 08:24; Start 10/20/21 at 13:30 Active Scripts Active Reported Urea 227 Gm Cream..g. 1 Tata TP DAILY 30 Days Crestor (Rosuvastatin Calcium) 40 Mg Tablet 1 Tab PO DAILY Namenda (Memantine Hcl) 10 Mg Tablet 1 Tab PO BID Pantoprazole Sodium (Pantoprazole Sodium) 40 Mg Tablet.dr 40 Mg PO DAILYAC Lisinopril 40 Mg Tablet 0.5 Tab PO DAILY Levothyroxine Sodium 50 Mcg Tablet 1 Tab PO DAILY Xolegel (Ketoconazole) 45 Gm Gel..gram. 1 Tata TP BID 30 Days Isosorbide Mononitrate Er (Isosorbide Mononitrate) 60 Mg Tab.er.24h 1 Tab PO DAILY Hydrophor Ointment (Mineral Oil/Hydrophil Petrolat) 454 Gm Oint...g. 454 Gm TP PRN PRN Zetia (Ezetimibe) 10 Mg Tablet 1 Tab PO DAILY 30 Days Donepezil Hcl 10 Mg Tablet 1 Tab PO DAILY Clopidogrel (Clopidogrel Bisulfate) 75 Mg Tablet 75 Mg PO DAILY Celexa (Citalopram Hydrobromide) 40 Mg Tablet 1 Tab PO DAILY Vitamin D3 (Vitamin D) 25 Mcg Tablet 25 Mcg PO DAILY 1,000 UNITS = 25 MCG Thera Tears (Carboxymethylcellulose Sodium) 15 Ml Drops 1 Drop EACHEYE QID Atenolol 25 Mg Tablet 1 Tab PO DAILY Amlodipine Besylate 5 Mg Tablet 5 Mg PO DAILY Vitals/I & O Vital Sign - Last 24 Hours 10/20/21 10/20/21 10/20/21 10/20/21 11:28 11:58 12:25 13:05 O2 Delivery Room Air Room Air Room Air Room Air 10/20/21 10/20/21 10/20/21 10/20/21 14:20 14:50 19:00 20:00 Temp 97.9 97.9 Pulse 93 Resp 28 18 B/P (MAP) 94/43 (60) Pulse Ox 92 O2 Delivery Room Air Room Air Room Air Room Air 10/20/21 10/20/21 10/21/21 10/21/21 22:16 22:46 05:53 06:23 Resp 22 20 20 Pulse Ox 92 92 92 92 O2 Delivery Room Air Room Air Room Air Room Air O2 Flow Rate 1.0 10/21/21 10/21/21 10/21/21 10/21/21 07:00 07:44 08:24 08:57 Temp 100.3 100.3 Pulse 84 Resp 22 24 B/P (MAP) 113/48 (69) Pulse Ox 87 O2 Delivery Room Air Room Air Room Air Room Air Intake and Output 10/20/21 10/20/21 10/21/21 15:00 23:00 07:00 Intake Total 0 ml Output Total 425 ml Balance -425 ml Justicifation of Admission Dx: Justifications for Admission: Justification of Admission Dx: N/A BRIDGETTE ROLAND MD Oct 21, 2021 11:16
--- NOTE | 2021-10-21 11:32 | PDOC ---
[employer] PROGRESS NOTE Date of Service DOS: DATE: 10/21/21 TIME: 11:20 Chief Complaint Chief Complaint A/P: Acute hypoxic respiratory failure - likely due to aspiration pneumonia from vomiting likely from symptomatic 3rd degree heart block. Extubated and currently on comfort care/hospice PEA arrest - likely from above aspiration event, complicated by 3rd degree heart block. ROSC obtained Third degree heart block - s/p PPM generator change with apparent recovery of heart rate. Abnormal chest CT - likely due to due to pneumonia Nausea and vomiting - likely from CHB, will treat for pneumonia, will rule out other infectious etiology. IV anti-emetics Fall - second fall in a week. If neurologic recovery occurs needs gait testing, though likely this was related to cardiac event Closed head injury - posterior scalp abrasion, local wound care. Monitor neurologic function. Anemia - will check iron studies, likely of chronic disease Thrombocytopenia - unclear etiology, will trend EDWIN - likely vasomotor nephropathy from arrest. Family does not know of any history of CKD, will order [facility] records Lactic acidosis - likely due to hypoxia, will trend Transaminitis - likely related to shock liver, will monitor Elevated trop - demand ischemia from 3rd degree heart block, likely, will trend out. HTN - will add back home meds as BP allows HLD - statin when taking PO FEN - NPO. NGT feed Vital AF @ 40 ml/hr and free water flushes 200 ml q 6 PPX - pepcid, lovenox CODE - partial - no chest compressions Dispo - ICU. Patient family arrived next 24 hours to discuss ongoing plan. Addendum: I have discussed with bryn Painting and Seng Felix about overall goals of care and they have requested to "wait another week". Have advised him of the potential risks of ventilator associated pneumonia bedsores and other potential infections and have recommended after 14 days on the ventilator to consider tracheostomy and feeding tube if they want to continue care also offered palliative care and hospice care they are still precontemplative and do not want to move forward with any surgical procedures. They have made it clear if he does have a cardiac arrest he would not like chest compressions and would not like to be on the ventilator for "a year History of Present Illness History of Present Illness Mr Cerda is an 86-year-old male with PMHx HTN, HLD s/p PPM who presented to [facility] in [place] via EMS after a PEA cardiac arrest. Per his son, he was at home and in the presence of son and son-in-law when he was observed actively choking and subsequently falling on the floor with significant amount of emesis that was nonbloody and nonbilious in nature. Son reports vomit with recently ingested food and laying his father on his side and cleaning out his mouth while son-in-law called EMS. On EMS arrival ~3 minutes later, patient was unresponsive and cyanotic and they intubated. En-route patient was found to be pulseless in PEA and appropriate ACLS measures were followed with application of Howard device for chest compressions, and per report had a total of x2 epinephrine administered via left tibial IO. After approximately 5 minutes ROSC was obtained. In ED was noted unresponsive with pinpoint pupils and GCS 3 with no purposeful movements. Per EMS report and son the patient takes Plavix, lisinopril, rosuvastatin and citalopram at home. He has a pacemaker per son, which was placed in [place] over 10 years ago, and the son says he follows at [facility], doesn't know about pacer follow up. Per son he fell 4 days prior and [facility] noted on his [facility]iput. Family notes he has been more weak than usual over past 72 hours, no travel or sick contacts. Is fully vaccinated against COVID 19. EKG appeared with third-degree heart block at 42 bpm, left axis deviation, T wave inversion noted in lead I, III, V2-6, no STEMI Vitals obtained concerning for marked bradycardia and no respiratory effort Labs with WBC 9.1, Hb 11.4, platelets 128, ABG 7.2 7/42/459 on 100% FiO2, rapid COVID-19 negative, NA 137, K4.2, BUN 50, CR 2, glucose 247, lactic acid 8.6, calcium 8.6, bilirubin 0.6, AST 131, ALT 157, alkaline phosphatase 90, ammonia 25, albumin 3, troponin 0.134, INR 1.1, urinalysis bland. CT head and neck with no acute abnormalities. CT chest with bibasilar infiltrates and NGT and ETT in good positioning. manager monitoring concerning for third-degree heart block, with rate in the 20s, therefore 1 mg epinephrine administered with minimal improvement in HR, then 1 mg atropine without significant improvement, then dopamine gtt without sustained improvement. 3 L IV fluid administered and unasyn for aspiration pneumonitis. Ultimately was responsive to transcutaneous pacing and after discussion with cardiology he was transferred to [facility] for further care. To cath lab radiological technologist prior to my assessment, had pacemaker generator replaced emergently. Seen in ICU. Discussed with son bedside. 09/23: Afebrile, on vent with FiO2 50%, PEEP 5. Continue dopamine gtt. We will continue Unasyn for aspiration pneumonia. Chest x-ray showed suspected partially consolidated left lower lobe infiltrate superimposed on right lower and bilateral upper lobe multifocal interstitial infiltrate.. Critical care time 30 minutes spent reviewing charts, general labs, reviewing imaging, and discussion with RN. 09/24: Afebrile. On vent with FiO2 40%, PEEP 5. Remains on pressor support. Off dopamine. Will continue Unasyn for pneumonia. Continue to wean off vent. Critical care time 30 minutes spent reviewing charts, general labs, reviewing imaging, discussion with Dr. Mcdaniel. 09/25: Low-grade fever overnight, T-max 100.6 F. On vent with FiO2 35%, PEEP 5. Chest x-ray yesterday showed diffuse increased interstitial opacity likely due to interstitial infiltrate. Continue IV antibiotics. He has been off sedat ion for the past 24 hours. Platelets have steadily dropped; platelets 89 today. I discussion with daughter and son-in-law by phone about concerns for worsening bruising and, cytopenia. They are agreeable to no chest compressions, as to not cause any further damage that may lead to prolonged intubation. We will continue to wean off ventilator. 30 minutes critical care time spent reviewing charts, reviewing labs, reviewing imaging, discussion with RN, and discussion with Dr. Ortiz. 09/26: Afebrile. On vent with FiO2 35%, PEEP 5. Chest x-ray today showing stable diffuse interstitial infiltrate. Platelets [address] Brand was consulted yesterday; he is discussed with family the likely poor prognosis. Sister wants to fly in from [place] to see him. Family would like DNR but chemical code; son-in-law will discuss with the rest of family. Critical care time 30 minutes spent reviewing chart, reviewing labs, reviewing imaging, discussing with Dr. Ortiz. 10/30: Afebrile; on vent with FiO2 50%, PEEP 5. Off. For 72 hours. Some spontaneous movements noted this morning. I believe family is flying in from [place] to see him prior to making full DNR; chemical code. Critical care time 30 minutes spent reviewing charts, general labs, reviewing imaging, and discussion with RN. 09/28: Febrile overnight, T-max 102.0 F. 09/29: Patient evaluated examined at bedside. Remains off sedation. But still pretty unresponsive. Absent brainstem reflexes. Will attempt to contact family today to see if they are in fact coming in from [place]. Still on Levophed and dopamine. 09/30: Patient evaluated and examined at bedside. Still off sedation and unresponsive. Still on Levophed for blood pressure support. Family supposed to arrive today for discussion of ongoing care. 10/01: Patient evaluated and examined at bedside. Still intubated and unresponsive. Requiring pressors. Talk to patient's son on phone today for 15 minutes discussing advanced care planning. He reported that she has not been able to discuss ongoing care with his sister as she works in the afternoons and he works in the evenings. Provided clinical updates to him told him about no real improvement at this point. Still remains on high ventilator settings. 10/02: Patient evaluated examined at bedside. Still intubated minimally responsive even without sedation. Waiting for son to arrive at bedside for care discussion. Otherwise continuing current plans. I spent 35 minutes critical care time reviewing charts labs imaging and discussion with subspecialist and nursing team. 10/03: Patient evaluated examined at bedside. I discussed with the family yesterday for approximately 35 minutes ongoing care plans. During that time patient did have some extremity movement along with some head movement showing discomfort from the ventilator. With this family would like to continue care for now. I spoke with them again at bedside today and that they would like to continue on until at least tomorrow evening. Still think very poor prognosis. However will honor family wishes. Plan of care discussed with bedside RN. I spent 35 minutes critical care time reviewing charts labs imaging and discussion with specialists and nursing team 10/04: Patient evaluated at bedside. Still with some movements in his extremities. Still intubated minimally responsive despite being off sedation for over a week. Continue discussion of goals with family. 35 minutes critical care time. 10/05: Patient evaluated examined at bedside. Hyponatremic this morning on review does appear his sodium has been creeping up. We will increase free water flushes. Family continues discussing goals of care. Here to provide them any information needed. 33 minutes critical care time 10/06: Overnight no events. NA 149, K3.4, Hb 9.5. No meaningful movement off sedation over a week. 10/07: Overnight afebrile. Withdraws from pain requiring great toe reflex is breathing over the ventilator. Brainstem reflexes intact seems to be anoxic brain injury. discussed with family over the phone the asked for an additional week. I encouraged consideration of comfort care offered tracheostomy and PEG a do not want surgical interventions at this time 10/08: NA 142 today. On vent 35% FiO2 PEEP of 5 O2 saturations 100%. Has doll's eyes no meaningful movement does withdraw from painful stimuli. Babinski bilaterally. Afebrile 10/09: Afebrile overnight. On vent 35% FiO2 PEEP 5 with O2 saturations 96%. Still with no movement today withdrawal from painful stimuli Babinski bilaterally. Meeting at [address] Price from pulmonology, plan to withdraw care on 10/12/2021 when daughter arrives 10/10T-max 100.1 F overnight. On vent 35% FiO2 PEEP 5, O2 saturations 96%. Still with no purposeful movement withdraws from painful stimuli bilateral Babinski 10/11/2021 No acute events overnight. Patient seen and examined bedside. Current vent settings of 12/500/35/5. Patient remains on dopamine for pressors and not on any sedatives. No purposeful movements upon sternal rub. Patient's chart, labs, images were reviewed and discussed with RN 10/12/21 Patient seen and examined bedside. No acute events overnight. Patient extubated this afternoon and appears comfortable. Maintaining his own without any pain. No pressors at this time. Patient's chart, labs, images were reviewed and discussed with RN. 10/14/2021 No acute events overnight. Patient seen and examined bedside. No respiratory distress and appears comfortable. Minimal secretions. Would not recommend PEG tube placement for TPN. Patient may participate with pleasure feedings with assistance if able to wake up and intake food. Family does not want the patient to starve. Pending family discussion for patient pleasure feeding and possibly home hospice. Patient's chart, labs, images were reviewed and discussed with RN 10/15/2021 No acute events overnight. Patient seen and examined bedside appears comfortable. No respiratory distress or copious secretions. Apparently, family does want a PEG tube placed. We will plan on home with hospice after PEG tube is in place. GI consulted. Patient's chart, labs, images were reviewed and discussed with RN 10/16/2021 No acute events overnight. Patient appears comfortable at bedside. Waiting for family meeting for discussion of futility of nutrition or any further aggressive procedures. Patient's chart, labs, images were reviewed and discussed with RN 10/17/2021 Patient appears comfortable still on IV Keppra. No agonal respirations or copious secretions. Family will proceed with aggressive procedures. Social work working with family for for possible healthcare resort with hospice. Please see social work's notes for details. Patient's chart, labs, images were reviewed and discussed with RN 10/18/2021 No acute events overnight. Patient appears comfortable. IV started today to continue with IV Keppra. Patient's chart, labs, images were reviewed and discussed with RN 10/19/2021 No acute events overnight. Patient is comfortable in bed. No dyspnea or agitation or hallucination. Patient's chart, labs, images were reviewed and discussed with RN 10/20/2021 No acute events overnight. Patient seen and examined bedside. Respiratory rate in the 20s. Having some agonal breathing. Discussed with nurse and given morphine. Patient's chart, labs, images were reviewed and discussed with RN 10/21/21 Patient seen and examined bedside. Patient resting comfortably. Respiratory rate improved to about 12-14. No secretions. No agitation. Patient's chart, labs, images were reviewed and discussed with RN Vitals/I&O Vitals/I&O: Vital Signs Date Time Temp Pulse Resp B/P (MAP) Pulse Ox O2 Delivery O2 Flow Rate FiO2 10/21/21 08:57 Room Air 10/21/21 08:24 24 10/21/21 07:00 100.3 84 113/48 (69) 87 100.3 10/21/21 06:23 1.0 I & O 10/20/21 10/20/21 10/21/21 15:00 23:00 07:00 Intake Total 0 ml Output Total 425 ml Balance -425 ml Physical Exam General: No acute distress Heart: Regular rate Lungs: Crackles Abdomen: Soft, No tenderness Extremities: No clubbing, No cyanosis, No edema, Normal pulses, No tenderness/swelling Skin: No rashes, No breakdown, Other (Extensive bruising to anterior chest wall) Comment Review of Relevant I have reviewed the following items ivania (where applicable) has been applied. Medications: Current Medications Medications (Trade) Dose Ordered Sig/Subha Route PRN Reason Start Time Stop Time Status Last Admin Dose Admin Morphine Sulfate (Morphine Sulfate) 4 mg PRN Q1HR PRN IV PAIN 10/20/21 13:30 10/21/21 08:24 Justifications for Admission Chest Pain Indications Respiratory Distress?: Yes Justification for admission: Patient's respiratory distress as indicated by (SOB/tachypnea/abnormal breathing pattern plus hypoxemia/AMS/other evidence of respiratory compromise such as pulmonary edema on chest x-ray) will need inpatient level of care. Serious Diagnosis?: Yes Justification for admission: Chest pain may be indicative of potentially serious diagnosis/diagnoses Please state condition(s) which will require inpatient level of care for further evaluation and management. Other Justification EMILY HARRIS MD Oct 21, 2021 11:32
--- NOTE | 2021-10-21 14:41 | NUR ---
Report given to SEVERIANO Kaiser.
--- NOTE | 2021-10-21 16:43 | NUR ---
Wound Care Wound Type/Assessment: Wound care follow up for skin tear to R upper chest, which is now healed. Pt has a left posterior thigh, serum filled, intact blister of unknown origin, periwound skin clear and intact. Pt also has a small, circular DTI on left area of sacrum, purplish red in color, non-blanchable. Pt also has a small DTI to right heel with purplish red in color and is non-blanchable. All wounds cleaned, measured and photographed. Treatment Recommendations/Plan: Cleanse wounds, apply xeroform and foam to L posterior thigh, change every 3 days. Aquacel foam dressing to sacrum and to right heel. change on Wednesday and Wednesday. Foam also applied to the left heel for protection. All dressings applied. Bilateral heel medix ordered for this patient. Education provided: Patient continues to be non-responsive Offloading surface/device: Patient needs to be on a P-500 bed, we will order this as well. Patient turned to right side using purple wedge. Recommended Referrals/Tests: na Discharge Recommendations for dressings: Dressing change instructions left in room. Wound care will follow up on 10/28/21. Bed alarm in place.
[2021-10-21 19:00] VITALS: BP 118/50
[2021-10-22] MEDS: MORPHINE SULFATE 2 MG/ML INJ. IV PRN ×3 (06:07→21:29)
[2021-10-22 07:00] VITALS: BP 149/64
[2021-10-22] MEDS: FAMOTIDINE 20 MG/2 ML VIAL IVP SCH ×2 (08:36→21:25)
[2021-10-22] MEDS: SCOPOLAMINE 1.5MG PATCH. TD SCH (08:36)
[2021-10-22] MEDS: levETIRAcetam 500 MG in IV DEXTROSE 5% 100ML 100 ML IV SCH ×2 (08:42→21:30)
--- NOTE | 2021-10-22 10:22 | NUR ---
SW following. Discussed with RN, SW [facility]. SW will continue to follow.
--- NOTE | 2021-10-22 11:55 | PDOC ---
[employer] PROGRESS NOTE Date of Service DOS: DATE: 10/22/21 TIME: 11:53 Chief Complaint Chief Complaint A/P: Acute hypoxic respiratory failure - likely due to aspiration pneumonia from vomiting likely from symptomatic 3rd degree heart block. Extubated and currently on comfort care/hospice PEA arrest - likely from above aspiration event, complicated by 3rd degree heart block. ROSC obtained Third degree heart block - s/p PPM generator change with apparent recovery of heart rate. Abnormal chest CT - likely due to due to pneumonia Nausea and vomiting - likely from CHB, treated for pneumonia, will rule out other infectious etiology. IV anti-emetics Fall - second fall in a week. If neurologic recovery occurs needs gait testing, though likely this was related to cardiac event Closed head injury - posterior scalp abrasion, local wound care. Monitor neurologic function. Anemia - will check iron studies, likely of chronic disease Thrombocytopenia - unclear etiology, will trend EDWIN - likely vasomotor nephropathy from arrest. Family does not know of any history of CKD, will order [facility] records Lactic acidosis - likely due to hypoxia, will trend Transaminitis - likely related to shock liver Elevated trop - demand ischemia from 3rd degree heart block, likely, will trend out. HTN - will add back home meds as BP allows HLD - statin when taking PO FEN - Comfort PPX - pepcid, lovenox CODE - DNR/DNI, comfort care Dispo - Med surg I have discussed with bryn Painting and Seng Felix about overall goals of care and they have requested to go inpatient hospice with [facility] History of Present Illness History of Present Illness Mr Cerda is an 86-year-old male with PMHx HTN, HLD s/p PPM who presented to [place] [facility] in [place] via EMS after a PEA cardiac arrest. Per his son, he was at home and in the presence of son and son-in-law when he was observed actively choking and subsequently falling on the floor with significant amount of emesis that was nonbloody and nonbilious in nature. Son reports vomit with recently ingested food and laying his father on his side and cleaning out his mouth while son-in-law called EMS. On EMS arrival ~3 minutes later, patient was unresponsive and cyanotic and they intubated. En-route patient was found to be pulseless in PEA and appropriate ACLS measures were followed with application of Howard device for chest compressions, and per report had a total of x2 epinephrine administered via left tibial IO. After approximately 5 minutes ROSC was obtained. In ED was noted unresponsive with pinpoint pupils and GCS 3 with no purposeful movements. Per EMS report and son the patient takes Plavix, lisinopril, rosuvastatin and citalopram at home. He has a pacemaker per son, which was placed in [place] over 10 years ago, and the son says he follows at [facility], doesn't know about pacer follow up. Per son he fell 4 days prior and was seen for head abrasion at local [facility], noted on his occiput. Family notes he has been more weak than usual over past 72 hours, no travel or sick contacts. Is fully vaccinated against COVID 19. EKG appeared with third-degree heart block at 42 bpm, left axis deviation, T wave inversion noted in lead I, III, V2-6, no STEMI Vitals obtained concerning for marked bradycardia and no respiratory effort Labs with WBC 9.1, Hb 11.4, platelets 128, ABG 7.2 /459 on 100% FiO2, rapid COVID-19 negative, NA 137, K4.2, BUN 50, CR 2, glucose 247, lactic acid 8.6, calcium 8.6, bilirubin 0.6, AST 131, ALT 157, alkaline phosphatase 90, ammonia 25, albumin 3, troponin 0.134, INR 1.1, urinalysis bland. CT head and neck with no acute abnormalities. CT chest with bibasilar infiltrates and NGT and ETT in good positioning. privacy director concerning for third-degree heart block, with rate in the 20s, therefore 1 mg epinephrine administered with minimal improvement in HR, then 1 mg atropine without significant improvement, then dopamine gtt without sustained improvement. 3 L IV fluid administered and unasyn for aspiration pneumonitis. Ultimately was responsive to transcutaneous pacing and after discussion with madan gomez he was transferred to [facility] for further care. To cardiac cath tech prior to my assessment, had pacemaker generator replaced emergently. Seen in ICU. Discussed with son bedside. 09/23: Afebrile, on vent with FiO2 50%, PEEP 5. Continue dopamine gtt. We will continue Unasyn for aspiration pneumonia. Chest x-ray showed suspected partially consolidated left lower lobe infiltrate superimposed on right lower and bilateral upper lobe multifocal interstitial infiltrate.. Critical care time 30 minutes spent reviewing charts, general labs, reviewing imaging, and discussion with RN. 09/24: Afebrile. On vent with FiO2 40%, PEEP 5. Remains on pressor support. Off dopamine. Will continue Unasyn for pneumonia. Continue to wean off vent. Critical care time 30 minutes spent reviewing charts, general labs, reviewing imaging, discussion with Dr. Mcdaniel. 09/25: Low-grade fever overnight, T-max 100.6 F. On vent with FiO2 35%, PEEP 5. Chest x-ray yesterday showed diffuse increased interstitial opacity likely due to interstitial infiltrate. Continue IV antibiotics. He has been off sedation for the past 24 hours. Platelets have steadily dropped; platelets 89 today. I discussion with daughter and son-in-law by phone about concerns for worsening bruising and, cytopenia. They are agreeable to no chest compressions, as to not cause any further damage that may lead to prolonged intubation. We will continue to wean off ventilator. 30 minutes critical care time spent reviewing charts, reviewing labs, reviewing imaging, discussion with RN, and discussion with Dr. Ortiz. 09/26: Afebrile. On vent with FiO2 35%, PEEP 5. Chest x-ray today showing stable diffuse interstitial infiltrate. Platelets [address] Brand was consulted yesterday; he is discussed with family the likely poor prognosis. Sister wants to fly in from [place] to see him. Family would like DNR but chemical code; son-in-law will discuss with the rest of family. Critical care time 30 minutes spent reviewing chart, reviewing labs, reviewing imaging, discussing with Dr. Ortiz. 09/27: Afebrile; on vent with FiO2 50%, PEEP 5. Off. For 72 hours. Some sp ontaneous movements noted this morning. I believe family is flying in from [place] to see him prior to making full DNR; chemical code. Critical care time 30 minutes spent reviewing charts, general labs, reviewing imaging, and discussion with RN. 09/28: Febrile overnight, T-max 102.0 F. 09/29: Patient evaluated examined at bedside. Remains off sedation. But still pretty unresponsive. Absent brainstem reflexes. Will attempt to contact family today to see if they are in fact coming in from [place]. Still on Levophed and dopamine. 09/30: Patient evaluated and examined at bedside. Still off sedation and unresponsive. Still on Levophed for blood pressure support. Family supposed to arrive today for discussion of ongoing care. 10/01: Patient evaluated and examined at bedside. Still intubated and unresponsive. Requiring pressors. Talk to patient's son on phone today for 15 minutes discussing advanced care planning. He reported that she has not been able to discuss ongoing care with his sister as she works in the afternoons and he works in the evenings. Provided clinical updates to him told him about no real improvement at this point. Still remains on high ventilator settings. 10/02: Patient evaluated examined at bedside. Still intubated minimally responsi ve even without sedation. Waiting for son to arrive at bedside for care discussion. Otherwise continuing current plans. I spent 35 minutes critical care time reviewing charts labs imaging and discussion with subspecialist and nursing team. 10/03: Patient evaluated examined at bedside. I discussed with the family yesterday for approximately 35 minutes ongoing care plans. During that time patient did have some extremity movement along with some head movement showing discomfort from the ventilator. With this family would like to continue care for now. I spoke with them again at bedside today and that they would like to continue on until at least tomorrow evening. Still think very poor prognosis. However will honor family wishes. Plan of care discussed with bedside RN. I spent 35 minutes critical care time reviewing charts labs imaging and discussion with specialists and nursing team 10/04: Patient evaluated at bedside. Still with some movements in his extremities. Still intubated minimally responsive despite being off sedation for over a week. Continue discussion of goals with family. 35 minutes critical care time. 10/05: Patient evaluated examined at bedside. Hyponatremic this morning on review does appear his sodium has been creeping up. We will increase free water flushes. Family continues discussing goals of care. Here to provide them any information needed. 33 minutes critical care time 10/06: Overnight no events. NA 149, K3.4, Hb 9.5. No meaningful movement off sedation over a week. 10/07: Overnight afebrile. Withdraws from pain requiring great toe reflex is breathing over the ventilator. Brainstem reflexes intact seems to be anoxic brain injury. discussed with family over the phone the asked for an additional week. I encouraged consideration of comfort care offered tracheostomy and PEG a do not want surgical interventions at this time 10/08: NA 142 today. On vent 35% FiO2 PEEP of 5 O2 saturations 100%. Has doll's eyes no meaningful movement does withdraw from painful stimuli. Babinski bila terally. Afebrile 10/09: Afebrile overnight. On vent 35% FiO2 PEEP 5 with O2 saturations 96%. Still with no movement today withdrawal from painful stimuli Babinski bilaterally. Meeting at [address] Price from pulmonology, plan to withdraw care on 10/12/2021 when daughter arrives 10/10T-max 100.1 F overnight. On vent 35% FiO2 PEEP 5, O2 saturations 96%. Still with no purposeful movement withdraws from painful stimuli bilateral Babinski 10/11/2021 No acute events overnight. Patient seen and examined bedside. Current vent settings of 12/500/35/5. Patient remains on dopamine for pressors and not on any sedatives. No purposeful movements upon sternal rub. Patient's chart, labs, images were reviewed and discussed with RN 10/12/21 Patient seen and examined bedside. No acute events overnight. Patient extubated this afternoon and appears comfortable. Maintaining his own without any pain. No pressors at this time. Patient's chart, labs, images were reviewed and discussed with RN. 10/14/2021 No acute events overnight. Patient seen and examined bedside. No respiratory distress and appears comfortable. Minimal secretions. Would not recommend PEG tube placement for TPN. Patient may participate with pleasure feedings with assistance if able to wake up and intake food. Family does not want the patient to starve. Pending family discussion for patient pleasure feeding and possibly home hospice. Patient's chart, labs, images were reviewed and discussed with RN 10/15/2021 No acute events overnight. Patient seen and examined bedside appears comfortable. No respiratory distress or copious secretions. Apparently, family does want a PEG tube placed. We will plan on home with hospice after PEG tube is in place. GI consulted. Patient's chart, labs, images were reviewed and discussed with RN 10/16/2021 No acute events overnight. Patient appears comfortable at bedside. Waiting for family meeting for discussion of futility of nutrition or any further aggressive procedures. Patient's chart, labs, images were reviewed and discussed with RN 10/17/2021 Patient appears comfortable still on IV Keppra. No agonal respirations or copious secretions. Family will proceed with aggressive procedures. Social work working with family for for possible healthcare resort with hospice. Please see social work's notes for details. Patient's chart, labs, images were reviewed and discussed with RN 10/18/2021 No acute events overnight. Patient appears comfortable. IV started today to continue with IV Keppra. Patient's chart, labs, images were reviewed and discussed with RN 10/19/2021 No acute events overnight. Patient is comfortable in bed. No dyspnea or agitation or hallucination. Patient's chart, labs, images were reviewed and discussed with RN 10/20/2021 No acute events overnight. Patient seen and examined bedside. Respiratory rate in the 20s. Having some agonal breathing. Discussed with nurse and given morphine. Patient's chart, labs, images were reviewed and discussed with RN 10/21/21 Patient seen and examined bedside. Patient resting comfortably. Respiratory rate improved to about 12-14. No secretions. No agitation. Patient's chart, labs, images were reviewed and discussed with RN 10/22: Seen and examined bedside. Has basic brainstem reflexes but nothing more. No meaningful responses. No seizure activity. Awaiting inpatient hospice approval discussed with family Vitals/I&O Vitals/I&O: Vital Signs Date Time Temp Pulse Resp B/P (MAP) Pulse Ox O2 Delivery O2 Flow Rate FiO2 10/22/21 07:00 Nasal Cannula 10/22/21 07:00 98.3 75 18 149/64 (92) 93 98.3 I & O 10/21/21 10/21/21 10/22/21 15:00 23:00 07:00 Intake Total 0 ml Output Total 400 ml 450 ml Balance -400 ml -450 ml Physical Exam General: No acute distress Heart: Regular rate Lungs: Crackles Abdomen: Soft, No tenderness Extremities: No clubbing, No cyanosis, No edema, Normal pulses, No tenderness/swelling Skin: No rashes, No breakdown, Other (Extensive bruising to anterior chest wall) Comment Review of Relevant I have reviewed the following items ivania (where applicable) has been applied. Justifications for Admission Chest Pain Indications Respiratory Distress?: Yes Justification for admission: Patient's respiratory distress as indicated by (SOB/tachypnea/abnormal breathing pattern plus hypoxemia/AMS/other evidence of respiratory compromise such as pulmonary edema on chest x-ray) will need inpatient level of care. Serious Diagnosis?: Yes Justification for admission: Chest pain may be indicative of potentially serious diagnosis/diagnoses Please state condition(s) which will require inpatient level of care for further evaluation and management. Other Justification TERESA CASTRO MD Oct 22, 2021 11:55
[2021-10-22 19:00] VITALS: BP 177/75
[2021-10-22 21:24] VITALS: BP 161/73
[2021-10-22 23:41] VITALS: BP 146/70
[2021-10-23 07:00] VITALS: BP 149/72
[2021-10-23] MEDS: levETIRAcetam 500 MG in IV DEXTROSE 5% 100ML 100 ML IV SCH ×2 (07:54→21:41)
[2021-10-23] MEDS: FAMOTIDINE 20 MG/2 ML VIAL IVP SCH ×2 (07:54→21:41)
[2021-10-23] MEDS: MORPHINE SULFATE 4 MG/ML INJ. IV PRN (07:55)
[2021-10-23 11:00] VITALS: BP 127/60
--- NOTE | 2021-10-23 11:58 | PDOC ---
[employer] PROGRESS NOTE Date of Service DOS: DATE: 10/23/21 TIME: 11:56 Chief Complaint Chief Complaint A/P: Acute hypoxic respiratory failure - likely due to aspiration pneumonia from vomiting likely from symptomatic 3rd degree heart block. Extubated and currently on comfort care/hospice PEA arrest - likely from above aspiration event, complicated by 3rd degree heart block. ROSC obtained Third degree heart block - s/p PPM generator change with apparent recovery of heart rate. Abnormal chest CT - likely due to due to pneumonia Nausea and vomiting - likely from CHB, treated for pneumonia, will rule out other infectious etiology. IV anti-emetics Fall - second fall in a week. If neurologic recovery occurs needs gait testing, though likely this was related to cardiac event Closed head injury - posterior scalp abrasion, local wound care. Monitor neurologic function. Anemia - will check iron studies, likely of chronic disease Thrombocytopenia - unclear etiology, will trend EDWIN - likely vasomotor nephropathy from arrest. Family does not know of any history of CKD, will order [facility] records Lactic acidosis - likely due to hypoxia, will trend Transaminitis - likely related to shock liver Elevated trop - demand ischemia from 3rd degree heart block, likely, will trend out. HTN - will add back home meds as BP allows HLD - statin when taking PO FEN - Comfort PPX - pepcid, lovenox CODE - DNR/DNI, comfort care Dispo - Med surg I have discussed with bryn Painting and Seng Felix about overall goals of care and they have requested to go inpatient hospice with [facility] History of Present Illness History of Present Illness Mr Cerda is an 86-year-old male with PMHx HTN, HLD s/p PPM who presented to [facility] in [place] via EMS after a PEA cardiac arrest. Per his son, he was at home and in the presence of son and son-in-law when he was observed actively choking and subsequently falling on the floor with significant amount of emesis that was nonbloody and nonbilious in nature. Son reports vomit with recently ingested food and laying his father on his side and cleaning out his mouth while son-in-law called EMS. On EMS arrival ~3 minutes later, patient was unresponsive and cyanotic and they intubated. En-route patient was found to be pulseless in PEA and appropriate ACLS measures were followed with application of Howard device for chest compressions, and per report had a total of x2 epinephrine administered via left tibial IO. After approximately 5 minutes ROSC was obtained. In ED was noted unresponsive with pinpoint pupils and GCS 3 with no purposeful movements. Per EMS report and son the patient takes Plavix, lisinopril, rosuvastatin and citalopram at home. He has a pacemaker per son, which was placed in [place] over 10 years ago, and the son says he follows at [facility], doesn't know about pacer follow up. Per son he fell 4 days prior and was seen for head abrasion at local [place], noted on his occiput. Family notes he has been more weak than usual over past 72 hours, no travel or sick contacts. Is fully vaccinated against COVID 19. EKG appeared with third-degree heart block at 42 bpm, left axis deviation, T wave inversion noted in lead I, III, V2-6, no STEMI Vitals obtained concerning for marked bradycardia and no respiratory effort Labs with WBC 9.1, Hb 11.4, platelets 128, ABG 7.2 /459 on 100% FiO2, rapid COVID-19 negative, NA 137, K4.2, BUN 50, CR 2, glucose 247, lactic acid 8.6, calcium 8.6, bilirubin 0.6, AST 131, ALT 157, alkaline phosphatase 90, ammonia 25, albumin 3, troponin 0.134, INR 1.1, urinalysis bland. CT head and neck with no acute abnormalities. CT chest with bibasilar infiltrates and NGT and ETT in good positioning. school lunch monitor concerning for third-degree heart block, with rate in the 20s, therefore 1 mg epinephrine administered with minimal improvement in HR, then 1 mg atropine without significant improvement, then dopamine gtt without sustained improvement. 3 L IV fluid administered and unasyn for aspiration pneumonitis. Ultimately was responsive to transcutaneous pacing and after discussion with madan gomez he was transferred to [facility] for further care. 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 Seen in ICU. Discussed with son bedside. 09/23: Afebrile, on vent with FiO2 50%, PEEP 5. Continue dopamine gtt. We will continue Unasyn for aspiration pneumonia. Chest x-ray showed suspected partially consolidated left lower lobe infiltrate superimposed on right lower and bilateral upper lobe multifocal interstitial infiltrate.. Critical care time 30 minutes spent reviewing charts, general labs, reviewing imaging, and discussion with RN. 09/24: Afebrile. On vent with FiO2 40%, PEEP 5. Remains on pressor support. Off dopamine. Will continue Unasyn for pneumonia. Continue to wean off vent. Critical care time 30 minutes spent reviewing charts, general labs, reviewing imaging, discussion with Dr. Mcdaniel. 09/25: Low-grade fever overnight, T-max 100.6 F. On vent with FiO2 35%, PEEP 5. Chest x-ray yesterday showed diffuse increased interstitial opacity likely due to interstitial infiltrate. Continue IV antibiotics. He has been off sedation for the past 24 hours. Platelets have steadily dropped; platelets 89 today. I discussion with daughter and son-in-law by phone about concerns for worsening bruising and, cytopenia. They are agreeable to no chest compressions, as to not cause any further damage that may lead to prolonged intubation. We will continue to wean off ventilator. 30 minutes critical care time spent reviewing charts, reviewing labs, reviewing imaging, discussion with RN, and discussion with Dr. Ortiz. 09/26: Afebrile. On vent with FiO2 35%, PEEP 5. Chest x-ray today showing stable diffuse interstitial infiltrate. Platelets [address] Brand was consulted yesterday; he is discussed with family the likely poor prognosis. Sister wants to fly in from [place] to see him. Family would like DNR but chemical code; son-in-law will discuss with the rest of family. Critical care time 30 minutes spent reviewing chart, reviewing labs, reviewing imaging, discussing with Dr. Ortiz. 09/27: Afebrile; on vent with FiO2 50%, PEEP 5. Off. For 72 hours. Some sp ontaneous movements noted this morning. I believe family is flying in from [place] to see him prior to making full DNR; chemical code. Critical care time 30 minutes spent reviewing charts, general labs, reviewing imaging, and discussion with RN. 09/28: Febrile overnight, T-max 102.0 F. 09/29: Patient evaluated examined at bedside. Remains off sedation. But still pretty unresponsive. Absent brainstem reflexes. Will attempt to contact family today to see if they are in fact coming in from [place]. Still on Levophed and dopamine. 09/30: Patient evaluated and examined at bedside. Still off sedation and unresponsive. Still on Levophed for blood pressure support. Family supposed to arrive today for discussion of ongoing care. 10/01: Patient evaluated and examined at bedside. Still intubated and unresponsive. Requiring pressors. Talk to patient's son on phone today for 15 minutes discussing advanced care planning. He reported that she has not been able to discuss ongoing care with his sister as she works in the afternoons and he works in the evenings. Provided clinical updates to him told him about no real improvement at this point. Still remains on high ventilator settings. 10/02: Patient evaluated examined at bedside. Still intubated minimally responsi ve even without sedation. Waiting for son to arrive at bedside for care discussion. Otherwise continuing current plans. I spent 35 minutes critical care time reviewing charts labs imaging and discussion with subspecialist and nursing team. 10/03: Patient evaluated examined at bedside. I discussed with the family yesterday for approximately 35 minutes ongoing care plans. During that time patient did have some extremity movement along with some head movement showing discomfort from the ventilator. With this family would like to continue care for now. I spoke with them again at bedside today and that they would like to continue on until at least tomorrow evening. Still think very poor prognosis. However will honor family wishes. Plan of care discussed with bedside RN. I spent 35 minutes critical care time reviewing charts labs imaging and discussion with specialists and nursing team 10/04: Patient evaluated at bedside. Still with some movements in his extremities. Still intubated minimally responsive despite being off sedation for over a week. Continue discussion of goals with family. 35 minutes critical care time. 10/05: Patient evaluated examined at bedside. Hyponatremic this morning on review does appear his sodium has been creeping up. We will increase free water flushes. Family continues discussing goals of care. Here to provide them any information needed. 33 minutes critical care time 10/06: Overnight no events. NA 149, K3.4, Hb 9.5. No meaningful movement off sedation over a week. 10/07: Overnight afebrile. Withdraws from pain requiring great toe reflex is breathing over the ventilator. Brainstem reflexes intact seems to be anoxic brain injury. discussed with family over the phone the asked for an additional week. I encouraged consideration of comfort care offered tracheostomy and PEG a do not want surgical interventions at this time 10/08: NA 142 today. On vent 35% FiO2 PEEP of 5 O2 saturations 100%. Has doll's eyes no meaningful movement does withdraw from painful stimuli. Babinski bila terally. Afebrile 10/09: Afebrile overnight. On vent 35% FiO2 PEEP 5 with O2 saturations 96%. Still with no movement today withdrawal from painful stimuli Babinski bilaterally. Meeting at [address] Price from pulmonology, plan to withdraw care on 10/12/2021 when daughter arrives 10/10: T-max 100.1 F overnight. On vent 35% FiO2 PEEP 5, O2 saturations 96%. Still with no purposeful movement withdraws from painful stimuli bilateral Babinski 10/11: No acute events overnight. Patient seen and examined bedside. Current vent settings of 12/500/35/5. Patient remains on dopamine for pressors and not on any sedatives. No purposeful movements upon sternal rub. Patient's chart, labs, images were reviewed and discussed with RN 10/12: Patient seen and examined bedside. No acute events overnight. Patient extubated this afternoon and appears comfortable. Maintaining his own without any pain. No pressors at this time. Patient's chart, labs, images were reviewed and discussed with RN. 10/14: No acute events overnight. Patient seen and examined bedside. No respiratory distress and appears comfortable. Minimal secretions. Would not r ecommend PEG tube placement for TPN. Patient may participate with pleasure feedings with assistance if able to wake up and intake food. Family does not want the patient to starve. Pending family discussion for patient pleasure feeding and possibly home hospice. Patient's chart, labs, images were reviewed and discussed with RN 10/15: No acute events overnight. Patient seen and examined bedside appears comfortable. No respiratory distress or copious secretions. Apparently, family does want a PEG tube placed. We will plan on home with hospice after PEG tube is in place. GI consulted. 10/16: No acute events overnight. Patient appears comfortable at bedside. Waiting for family meeting for discussion of futility of nutrition or any further aggressive procedures. Patient's chart, labs, images were reviewed and discussed with RN 10/17: Patient appears comfortable still on IV Keppra. No agonal respirations or copious secretions. Family will proceed with aggressive procedures. Social work working with family for for possible healthcare resort with hospice. Please see social work's notes for details. 10/18: No acute events overnight. Patient appears comfortable. IV started today to continue with IV Keppra. Patient's chart, labs, images were reviewed a nd discussed with RN 10/19: No acute events overnight. Patient is comfortable in bed. No dyspnea or agitation or hallucination. Patient's chart, labs, images were reviewed and discussed with RN 10/20: No acute events overnight. Patient seen and examined bedside. Respiratory rate in the 20s. Having some agonal breathing. Discussed with nurse and given morphine. Patient's chart, labs, images were reviewed and discussed with RN 10/21: Patient seen and examined bedside. Patient resting comfortably. Re spiratory rate improved to about 12-14. No secretions. No agitation. Patient's chart, labs, images were reviewed and discussed with RN 10/22: Seen and examined bedside. Has basic brainstem reflexes but nothing more. No meaningful responses. No seizure activity. Awaiting inpatient hospice approval discussed with family 10/23: Seen and examined bedside still with basic brainstem reflexes but nothing more. Minsky. No meaningful response no seizure activity. Afebrile. Awaiting inpatient hospice Vitals/I&O Vitals/I&O: Vital Signs Date Time Temp Pulse Resp B/P (MAP) Pulse Ox O2 Delivery O2 Flow Rate FiO2 10/23/21 11:00 98.3 60 18 127/60 (82) 97 Room Air 98.3 10/23/21 08:25 2.0 I & O 10/22/21 10/22/21 10/23/21 15:00 23:00 07:00 Intake Total 0 ml Output Total 700 ml Balance -700 ml Physical Exam General: No acute distress Heart: Regular rate Lungs: Crackles Abdomen: Soft, No tenderness Extremities: No clubbing, No cyanosis, No edema, Normal pulses, No tenderness/swelling Skin: No rashes, No breakdown, Other (Extensive bruising to anterior chest wall) Comment Review of Relevant I have reviewed the following items ivania (where applicable) has been applied. Justifications for Admission Chest Pain Indications Respiratory Distress?: Yes Justification for admission: Patient's respiratory distress as indicated by (SOB/tachypnea/abnormal breathing pattern plus hypoxemia/AMS/other evidence of respiratory compromise such as pulmonary edema on chest x-ray) will need inpatient level of care. Serious Diagnosis?: Yes Justification for admission: Chest pain may be indicative of potentially serious diagnosis/diagnoses Please state condition(s) which will require inpatient level of care for further evaluation and management. Other Justification TERESA CASTRO MD Oct 23, 2021 11:58
[2021-10-23] MEDS: MORPHINE SULFATE 2 MG/ML INJ. IV PRN (13:55)
[2021-10-23 19:25] VITALS: BP 160/71
[2021-10-24 07:00] VITALS: BP 165/84
--- NOTE | 2021-10-24 08:18 | PDOC ---
[employer] PROGRESS NOTE Date of Service DOS: DATE: 10/24/21 TIME: 08:17 Chief Complaint Chief Complaint A/P: Acute hypoxic respiratory failure - likely due to aspiration pneumonia from vomiting likely from symptomatic 3rd degree heart block. Extubated and currently on comfort care/hospice PEA arrest - likely from above aspiration event, complicated by 3rd degree heart block. ROSC obtained Third degree heart block - s/p PPM generator change with apparent recovery of heart rate. Abnormal chest CT - likely due to due to pneumonia Nausea and vomiting - likely from CHB, treated for pneumonia, will rule out other infectious etiology. IV anti-emetics Fall - second fall in a week. If neurologic recovery occurs needs gait testing, though likely this was related to cardiac event Closed head injury - posterior scalp abrasion, local wound care. Monitor neurologic function. Anemia - will check iron studies, likely of chronic disease Thrombocytopenia - unclear etiology, will trend EDWIN - likely vasomotor nephropathy from arrest. Family does not know of any history of CKD, will order [facility] records Lactic acidosis - likely due to hypoxia, will trend Transaminitis - likely related to shock liver Elevated trop - demand ischemia from 3rd degree heart block, likely, will trend out. HTN - will add back home meds as BP allows HLD - statin when taking PO FEN - Comfort PPX - pepcid, lovenox CODE - DNR/DNI, comfort care Dispo - Med surg I have discussed with bryn Painting and Seng Felix about overall goals of care and they have requested to go inpatient hospice with [facility] History of Present Illness History of Present Illness Mr Cerda is an 86-year-old male with PMHx HTN, HLD s/p PPM who presented to [facility] in [place] via EMS after a PEA cardiac arrest. Per his son, he was at home and in the presence of son and son-in-law when he was observed actively choking and subsequently falling on the floor with significant amount of emesis that was nonbloody and nonbilious in nature. Son reports vomit with recently ingested food and laying his father on his side and cleaning out his mouth while son-in-law called EMS. On EMS arrival ~3 minutes later, patient was unresponsive and cyanotic and they intubated. En-route patient was found to be pulseless in PEA and appropriate ACLS measures were followed with application of Howard device for chest compressions, and per report had a total of x2 epinephrine administered via left tibial IO. After approximately 5 minutes ROSC was obtained. In ED was noted unresponsive with pinpoint pupils and GCS 3 with no purposeful movements. Per EMS report and son the patient takes Plavix, lisinopril, rosuvastatin and citalopram at home. He has a pacemaker per son, which was placed in [place] over 10 years ago, and the son says he follows at [facility], doesn't know about pacer follow up. Per son he fell 4 days prior and was seen for head abrasion at [place] [facility], noted on his occiput. Family notes he has been more weak than usual over past 72 hours, no travel or sick contacts. Is fully vaccinated against COVID 19. EKG appeared with third-degree heart block at 42 bpm, left axis deviation, T wave inversion noted in lead I, III, V2-6, no STEMI Vitals obtained concerning for marked bradycardia and no respiratory effort Labs with WBC 9.1, Hb 11.4, platelets 128, ABG 7.2 /459 on 100% FiO2, rapid COVID-19 negative, NA 137, K4.2, BUN 50, CR 2, glucose 247, lactic acid 8.6, calcium 8.6, bilirubin 0.6, AST 131, ALT 157, alkaline phosphatase 90, ammonia 25, albumin 3, troponin 0.134, INR 1.1, urinalysis bland. CT head and neck with no acute abnormalities. CT chest with bibasilar infiltrates and NGT and ETT in good positioning. loft worker head concerning for third-degree heart block, with rate in the 20s, therefore 1 mg epinephrine administered with minimal improvement in HR, then 1 mg atropine without significant improvement, then dopamine gtt without sustained improvement. 3 L IV fluid administered and unasyn for aspiration pneumonitis. Ultimately was responsive to transcutaneous pacing and after discussion with madan gomez he was transferred to [facility] for further care. To cardiac catheterization technologist prior to my assessment, had pacemaker generator replaced emergently. Seen in ICU. Discussed with son bedside. 09/23: Afebrile, on vent with FiO2 50%, PEEP 5. Continue dopamine gtt. We will continue Unasyn for aspiration pneumonia. Chest x-ray showed suspected partially consolidated left lower lobe infiltrate superimposed on right lower and bilateral upper lobe multifocal interstitial infiltrate.. Critical care time 30 minutes spent reviewing charts, general labs, reviewing imaging, and discussion with RN. 09/24: Afebrile. On vent with FiO2 40%, PEEP 5. Remains on pressor support. Off dopamine. Will continue Unasyn for pneumonia. Continue to wean off vent. Critical care time 30 minutes spent reviewing charts, general labs, reviewing imaging, discussion with Dr. Mcdaniel. 09/25: Low-grade fever overnight, T-max 100.6 F. On vent with FiO2 35%, PEEP 5. Chest x-ray yesterday showed diffuse increased interstitial opacity likely due to interstitial infiltrate. Continue IV antibiotics. He has been off sedation for the past 24 hours. Platelets have steadily dropped; platelets 89 today. I discussion with daughter and son-in-law by phone about concerns for worsening bruising and, cytopenia. They are agreeable to no chest compressions, as to not cause any further damage that may lead to prolonged intubation. We will continue to wean off ventilator. 30 minutes critical care time spent reviewing charts, reviewing labs, reviewing imaging, discussion with RN, and discussion with Dr. Ortiz. 09/26: Afebrile. On vent with FiO2 35%, PEEP 5. Chest x-ray today showing stable diffuse interstitial infiltrate. Platelets [address] Brand was consulted yesterday; he is discussed with family the likely poor prognosis. Sister wants to fly in from [place] to see him. Family would like DNR but chemical code; son-in-law will discuss with the rest of family. Critical care time 30 minutes spent reviewing chart, reviewing labs, reviewing imaging, discussing with Dr. Ortiz. 09/27: Afebrile; on vent with FiO2 50%, PEEP 5. Off. For 72 hours. Some sp ontaneous movements noted this morning. I believe family is flying in from [place] to see him prior to making full DNR; chemical code. Critical care time 30 minutes spent reviewing charts, general labs, reviewing imaging, and discussion with RN. 09/28: Febrile overnight, T-max 102.0 F. 09/29: Patient evaluated examined at bedside. Remains off sedation. But still pretty unresponsive. Absent brainstem reflexes. Will attempt to contact family today to see if they are in fact coming in from [place]. Still on Levophed and dopamine. 09/30: Patient evaluated and examined at bedside. Still off sedation and unresponsive. Still on Levophed for blood pressure support. Family supposed to arrive today for discussion of ongoing care. 10/01: Patient evaluated and examined at bedside. Still intubated and unresponsive. Requiring pressors. Talk to patient's son on phone today for 15 minutes discussing advanced care planning. He reported that she has not been able to discuss ongoing care with his sister as she works in the afternoons and he works in the evenings. Provided clinical updates to him told him about no real improvement at this point. Still remains on high ventilator settings. 10/02: Patient evaluated examined at bedside. Still intubated minimally responsi ve even without sedation. Waiting for son to arrive at bedside for care discussion. Otherwise continuing current plans. I spent 35 minutes critical care time reviewing charts labs imaging and discussion with subspecialist and nursing team. 10/03: Patient evaluated examined at bedside. I discussed with the family yesterday for approximately 35 minutes ongoing care plans. During that time patient did have some extremity movement along with some head movement showing discomfort from the ventilator. With this family would like to continue care for now. I spoke with them again at bedside today and that they would like to continue on until at least tomorrow evening. Still think very poor prognosis. However will honor family wishes. Plan of care discussed with bedside RN. I spent 35 minutes critical care time reviewing charts labs imaging and discussion with specialists and nursing team 10/04: Patient evaluated at bedside. Still with some movements in his extremities. Still intubated minimally responsive despite being off sedation for over a week. Continue discussion of goals with family. 35 minutes critical care time. 10/05: Patient evaluated examined at bedside. Hyponatremic this morning on review does appear his sodium has been creeping up. We will increase free water flushes. Family continues discussing goals of care. Here to provide them any information needed. 33 minutes critical care time 10/06: Overnight no events. NA 149, K3.4, Hb 9.5. No meaningful movement off sedation over a week. 10/07: Overnight afebrile. Withdraws from pain requiring great toe reflex is breathing over the ventilator. Brainstem reflexes intact seems to be anoxic brain injury. discussed with family over the phone the asked for an additional week. I encouraged consideration of comfort care offered tracheostomy and PEG a do not want surgical interventions at this time 10/08: NA 142 today. On vent 35% FiO2 PEEP of 5 O2 saturations 100%. Has doll's eyes no meaningful movement does withdraw from painful stimuli. Babinski bila terally. Afebrile 10/09: Afebrile overnight. On vent 35% FiO2 PEEP 5 with O2 saturations 96%. Still with no movement today withdrawal from painful stimuli Babinski bilaterally. Meeting at [address] Price from pulmonology, plan to withdraw care on 10/12/2021 when daughter arrives 10/10: T-max 100.1 F overnight. On vent 35% FiO2 PEEP 5, O2 saturations 96%. Still with no purposeful movement withdraws from painful stimuli bilateral Babinski 10/11: No acute events overnight. Patient seen and examined bedside. Current vent settings of 12/500/35/5. Patient remains on dopamine for pressors and not on any sedatives. No purposeful movements upon sternal rub. Patient's chart, labs, images were reviewed and discussed with RN 10/12: Patient seen and examined bedside. No acute events overnight. Patient extubated this afternoon and appears comfortable. Maintaining his own without any pain. No pressors at this time. Patient's chart, labs, images were reviewed and discussed with RN. 10/14: No acute events overnight. Patient seen and examined bedside. No respiratory distress and appears comfortable. Minimal secretions. Would not r ecommend PEG tube placement for TPN. Patient may participate with pleasure feedings with assistance if able to wake up and intake food. Family does not want the patient to starve. Pending family discussion for patient pleasure feeding and possibly home hospice. Patient's chart, labs, images were reviewed and discussed with RN 10/15: No acute events overnight. Patient seen and examined bedside appears comfortable. No respiratory distress or copious secretions. Apparently, family does want a PEG tube placed. We will plan on home with hospice after PEG tube is in place. GI consulted. 10/16: No acute events overnight. Patient appears comfortable at bedside. Waiting for family meeting for discussion of futility of nutrition or any further aggressive procedures. Patient's chart, labs, images were reviewed and discussed with RN 10/17: Patient appears comfortable still on IV Keppra. No agonal respirations or copious secretions. Family will proceed with aggressive procedures. Social work working with family for for possible healthcare resort with hospice. Please see social work's notes for details. 10/18: No acute events overnight. Patient appears comfortable. IV started today to continue with IV Keppra. Patient's chart, labs, images were reviewed a nd discussed with RN 10/19: No acute events overnight. Patient is comfortable in bed. No dyspnea or agitation or hallucination. Patient's chart, labs, images were reviewed and discussed with RN 10/20: No acute events overnight. Patient seen and examined bedside. Respiratory rate in the 20s. Having some agonal breathing. Discussed with nurse and given morphine. Patient's chart, labs, images were reviewed and discussed with RN 10/21: Patient seen and examined bedside. Patient resting comfortably. Re spiratory rate improved to about 12-14. No secretions. No agitation. Patient's chart, labs, images were reviewed and discussed with RN 10/22: Seen and examined bedside. Has basic brainstem reflexes but nothing more. No meaningful responses. No seizure activity. Awaiting inpatient hospice approval discussed with family 10/23: Seen and examined bedside still with basic brainstem reflexes but no more. No meaningful response no seizure activity. Afebrile. Awaiting inpatient hospice 10/24: Febrile 100.5 F overnight remitted with acetaminophen rectal. No meaningful response to stimuli and seizure activity. Awaiting inpatient hospice evaluation today with family and hospice computer help desk representative Vitals/I&O Vitals/I&O: Vital Signs Date Time Temp Pulse Resp B/P (MAP) Pulse Ox O2 Delivery O2 Flow Rate FiO2 10/24/21 07:05 Nasal Cannula 2.0 10/24/21 07:00 100.5 101 18 165/84 (111) 93 100.5 I & O 10/23/21 10/23/21 10/24/21 15:00 23:00 07:00 Intake Total 200 ml Output Total 650 ml Balance -450 ml Physical Exam General: No acute distress Heart: Regular rate Lungs: Crackles Abdomen: Soft, No tenderness Extremities: No clubbing, No cyanosis, No edema, Normal pulses, No tenderness/swelling Skin: No rashes, No breakdown, Other (Extensive bruising to anterior chest wall ) Comment Review of Relevant I have reviewed the following items ivania (where applicable) has been applied. Justifications for Admission Chest Pain Indications Respiratory Distress?: Yes Justification for admission: Patient's respiratory distress as indicated by (SOB/tachypnea/abnormal breathing pattern plus hypoxemia/AMS/other evidence of respiratory compromise such as pulmonary edema on chest x-ray) will need inpatient level of care. Serious Diagnosis?: Yes Justification for admission: Chest pain may be indicative of potentially serious diagnosis/diagnoses Please state condition(s) which will require inpatient level of care for further evaluation and management. Other Justification TERESA CASTRO MD Oct 24, 2021 08:18
[2021-10-24] MEDS: MORPHINE SULFATE 4 MG/ML INJ. IV PRN ×2 (08:26→13:25)
[2021-10-24] MEDS: levETIRAcetam 500 MG in IV DEXTROSE 5% 100ML 100 ML IV SCH ×2 (08:27→21:00)
[2021-10-24] MEDS: FAMOTIDINE 20 MG/2 ML VIAL IVP SCH ×2 (08:31→21:00)
[2021-10-24 19:00] VITALS: BP 121/64
[2021-10-25 07:00] VITALS: BP 136/67
[2021-10-25] MEDS: levETIRAcetam 500 MG in IV DEXTROSE 5% 100ML 100 ML IV SCH ×2 (08:34→20:41)
[2021-10-25] MEDS: FAMOTIDINE 20 MG/2 ML VIAL IVP SCH ×2 (08:35→20:41)
[2021-10-25] MEDS: SCOPOLAMINE 1.5MG PATCH. TD SCH (08:38)
[2021-10-25] MEDS: MORPHINE SULFATE 2 MG/ML INJ. IV PRN (12:49)
--- NOTE | 2021-10-25 13:31 | PDOC ---
[employer] PROGRESS NOTE Date of Service DOS: DATE: 10/25/21 TIME: 13:30 Chief Complaint Chief Complaint A/P: Acute hypoxic respiratory failure - likely due to aspiration pneumonia from vomiting likely from symptomatic 3rd degree heart block. Extubated and currently on comfort care/hospice PEA arrest - likely from above aspiration event, complicated by 3rd degree heart block. ROSC obtained Third degree heart block - s/p PPM generator change with apparent recovery of heart rate. Abnormal chest CT - likely due to due to pneumonia Nausea and vomiting - likely from CHB, treated for pneumonia, will rule out other infectious etiology. IV anti-emetics Fall - second fall in a week. If neurologic recovery occurs needs gait testing, though likely this was related to cardiac event Closed head injury - posterior scalp abrasion, local wound care. Monitor neurologic function. Anemia - will check iron studies, likely of chronic disease Thrombocytopenia - unclear etiology, will trend EDWIN - likely vasomotor nephropathy from arrest. Family does not know of any history of CKD, will order [facility] records Lactic acidosis - likely due to hypoxia, will trend Transaminitis - likely related to shock liver Elevated trop - demand ischemia from 3rd degree heart block, likely, will trend out. HTN - will add back home meds as BP allows HLD - statin when taking PO FEN - Comfort PPX - pepcid, lovenox CODE - DNR/DNI, comfort care Dispo - Med surg I have discussed with bryn Painting and Seng Felix about overall goals of care and they have requested to go inpatient hospice with [facility] History of Present Illness History of Present Illness Mr Cerda is an 86-year-old male with PMHx HTN, HLD s/p PPM who presented to [facility] in [place] via EMS after a PEA cardiac arrest. Per his son, he was at home and in the presence of son and son-in-law when he was observed actively choking and subsequently falling on the floor with significant amount of emesis that was nonbloody and nonbilious in nature. Son reports vomit with recently ingested food and laying his father on his side and cleaning out his mouth while son-in-law called EMS. On EMS arrival ~3 minutes later, patient was unresponsive and cyanotic and they intubated. En-route patient was found to be pulseless in PEA and appropriate ACLS measures were followed with application of Howard device for chest compressions, and per report had a total of x2 epinephrine administered via left tibial IO. After approximately 5 minutes ROSC was obtained. In ED was noted unresponsive with pinpoint pupils and GCS 3 with no purposeful movements. Per EMS report and son the patient takes Plavix, lisinopril, rosuvastatin and citalopram at home. He has a pacemaker per son, which was placed in [place] over 10 years ago, and the son says he follows at [facility], doesn't know about pacer follow up. Per son he fell 4 days prior and was seen for head abrasion at local [place], noted on his occiput. Family notes he has been more weak than usual over past 72 hours, no travel or sick contacts. Is fully vaccinated against COVID 19. EKG appeared with third-degree heart block at 42 bpm, left axis deviation, T wave inversion noted in lead I, III, V2-6, no STEMI Vitals obtained concerning for marked bradycardia and no respiratory effort Labs with WBC 9.1, Hb 11.4, platelets 128, ABG 7.2 /459 on 100% FiO2, rapid COVID-19 negative, NA 137, K4.2, BUN 50, CR 2, glucose 247, lactic acid 8.6, calcium 8.6, bilirubin 0.6, AST 131, ALT 157, alkaline phosphatase 90, ammonia 25, albumin 3, troponin 0.134, INR 1.1, urinalysis bland. CT head and neck with no acute abnormalities. CT chest with bibasilar infiltrates and NGT and ETT in good positioning. monitoring engineer concerning for third-degree heart block, with rate in the 20s, therefore 1 mg epinephrine administered with minimal improvement in HR, then 1 mg atropine without significant improvement, then dopamine gtt without sustained improvement. 3 L IV fluid administered and unasyn for aspiration pneumonitis. Ultimately was responsive to transcutaneous pacing and after discussion with madan gomez he was transferred to [facility] for further care. To bottle labeler prior to my assessment, had pacemaker generator replaced emergently. Seen in ICU. Discussed with son bedside. 09/23: Afebrile, on vent with FiO2 50%, PEEP 5. Continue dopamine gtt. We will continue Unasyn for aspiration pneumonia. Chest x-ray showed suspected partially consolidated left lower lobe infiltrate superimposed on right lower and bilateral upper lobe multifocal interstitial infiltrate.. Critical care time 30 minutes spent reviewing charts, general labs, reviewing imaging, and discussion with RN. 09/24: Afebrile. On vent with FiO2 40%, PEEP 5. Remains on pressor support. Off dopamine. Will continue Unasyn for pneumonia. Continue to wean off vent. Critical care time 30 minutes spent reviewing charts, general labs, reviewing imaging, discussion with Dr. Mcdaniel. 09/25: Low-grade fever overnight, T-max 100.6 F. On vent with FiO2 35%, PEEP 5. Chest x-ray yesterday showed diffuse increased interstitial opacity likely due to interstitial infiltrate. Continue IV antibiotics. He has been off sedation for the past 24 hours. Platelets have steadily dropped; platelets 89 today. I discussion with daughter and son-in-law by phone about concerns for worsening bruising and, cytopenia. They are agreeable to no chest compressions, as to not cause any further damage that may lead to prolonged intubation. We will continue to wean off ventilator. 30 minutes critical care time spent reviewing charts, reviewing labs, reviewing imaging, discussion with RN, and discussion with Dr. Ortiz. 09/26: Afebrile. On vent with FiO2 35%, PEEP 5. Chest x-ray today showing stable diffuse interstitial infiltrate. Platelets [address] Brand was consulted yesterday; he is discussed with family the likely poor prognosis. Sister wants to fly in from [place] to see him. Family would like DNR but chemical code; son-in-law will discuss with the rest of family. Critical care time 30 minutes spent reviewing chart, reviewing labs, reviewing imaging, discussing with Dr. Ortiz. 09/27: Afebrile; on vent with FiO2 50%, PEEP 5. Off. For 72 hours. Some sp ontaneous movements noted this morning. I believe family is flying in from [place] to see him prior to making full DNR; chemical code. Critical care time 30 minutes spent reviewing charts, general labs, reviewing imaging, and discussion with RN. 09/28: Febrile overnight, T-max 102.0 F. 09/29: Patient evaluated examined at bedside. Remains off sedation. But still pretty unresponsive. Absent brainstem reflexes. Will attempt to contact family today to see if they are in fact coming in from [place]. Still on Levophed and dopamine. 09/30: Patient evaluated and examined at bedside. Still off sedation and unresponsive. Still on Levophed for blood pressure support. Family supposed to arrive today for discussion of ongoing care. 10/01: Patient evaluated and examined at bedside. Still intubated and unresponsive. Requiring pressors. Talk to patient's son on phone today for 15 minutes discussing advanced care planning. He reported that she has not been able to discuss ongoing care with his sister as she works in the afternoons and he works in the evenings. Provided clinical updates to him told him about no real improvement at this point. Still remains on high ventilator settings. 10/02: Patient evaluated examined at bedside. Still intubated minimally responsi ve even without sedation. Waiting for son to arrive at bedside for care discussion. Otherwise continuing current plans. I spent 35 minutes critical care time reviewing charts labs imaging and discussion with subspecialist and nursing team. 10/03: Patient evaluated examined at bedside. I discussed with the family yesterday for approximately 35 minutes ongoing care plans. During that time patient did have some extremity movement along with some head movement showing discomfort from the ventilator. With this family would like to continue care for now. I spoke with them again at bedside today and that they would like to continue on until at least tomorrow evening. Still think very poor prognosis. However will honor family wishes. Plan of care discussed with bedside RN. I spent 35 minutes critical care time reviewing charts labs imaging and discussion with specialists and nursing team 10/04: Patient evaluated at bedside. Still with some movements in his extremities. Still intubated minimally responsive despite being off sedation for over a week. Continue discussion of goals with family. 35 minutes critical care time. 10/05: Patient evaluated examined at bedside. Hyponatremic this morning on review does appear his sodium has been creeping up. We will increase free water flushes. Family continues discussing goals of care. Here to provide them any information needed. 33 minutes critical care time 10/06: Overnight no events. NA 149, K3.4, Hb 9.5. No meaningful movement off sedation over a week. 10/07: Overnight afebrile. Withdraws from pain requiring great toe reflex is breathing over the ventilator. Brainstem reflexes intact seems to be anoxic brain injury. discussed with family over the phone the asked for an additional week. I encouraged consideration of comfort care offered tracheostomy and PEG a do not want surgical interventions at this time 10/08: NA 142 today. On vent 35% FiO2 PEEP of 5 O2 saturations 100%. Has doll's eyes no meaningful movement does withdraw from painful stimuli. Babinski bila terally. Afebrile 10/09: Afebrile overnight. On vent 35% FiO2 PEEP 5 with O2 saturations 96%. Still with no movement today withdrawal from painful stimuli Babinski bilaterally. Meeting at [address] Price from pulmonology, plan to withdraw care on 10/12/2021 when daughter arrives 10/10: T-max 100.1 F overnight. On vent 35% FiO2 PEEP 5, O2 saturations 96%. Still with no purposeful movement withdraws from painful stimuli bilateral Babinski 10/11: No acute events overnight. Patient seen and examined bedside. Current vent settings of 12/500/35/5. Patient remains on dopamine for pressors and not on any sedatives. No purposeful movements upon sternal rub. Patient's chart, labs, images were reviewed and discussed with RN 10/12: Patient seen and examined bedside. No acute events overnight. Patient extubated this afternoon and appears comfortable. Maintaining his own without any pain. No pressors at this time. Patient's chart, labs, images were reviewed and discussed with RN. 10/14: No acute events overnight. Patient seen and examined bedside. No respiratory distress and appears comfortable. Minimal secretions. Would not r ecommend PEG tube placement for TPN. Patient may participate with pleasure feedings with assistance if able to wake up and intake food. Family does not want the patient to starve. Pending family discussion for patient pleasure feeding and possibly home hospice. Patient's chart, labs, images were reviewed and discussed with RN 10/15: No acute events overnight. Patient seen and examined bedside appears comfortable. No respiratory distress or copious secretions. Apparently, family does want a PEG tube placed. We will plan on home with hospice after PEG tube is in place. GI consulted. 10/16: No acute events overnight. Patient appears comfortable at bedside. Waiting for family meeting for discussion of futility of nutrition or any further aggressive procedures. Patient's chart, labs, images were reviewed and discussed with RN 10/17: Patient appears comfortable still on IV Keppra. No agonal respirations or copious secretions. Family will proceed with aggressive procedures. Social work working with family for for possible healthcare resort with hospice. Please see social work's notes for details. 10/18: No acute events overnight. Patient appears comfortable. IV started today to continue with IV Keppra. Patient's chart, labs, images were reviewed a nd discussed with RN 10/19: No acute events overnight. Patient is comfortable in bed. No dyspnea or agitation or hallucination. Patient's chart, labs, images were reviewed and discussed with RN 10/20: No acute events overnight. Patient seen and examined bedside. Respiratory rate in the 20s. Having some agonal breathing. Discussed with nurse and given morphine. Patient's chart, labs, images were reviewed and discussed with RN 10/21: Patient seen and examined bedside. Patient resting comfortably. Re spiratory rate improved to about 12-14. No secretions. No agitation. Patient's chart, labs, images were reviewed and discussed with RN 10/22: Seen and examined bedside. Has basic brainstem reflexes but nothing more. No meaningful responses. No seizure activity. Awaiting inpatient hospice approval discussed with family 10/23: Seen and examined bedside still with basic brainstem reflexes but no more. No meaningful response no seizure activity. Afebrile. Awaiting inpatient hospice 10/24: Febrile 100.5 F overnight remitted with acetaminophen rectal. No meaningful response to stimuli and seizure activity. Awaiting inpatient hospice evaluation today with family and hospice sales representative door to door 10/25: T-max 100.4 F this morning remitted with acetaminophen. Still no meaningful response to stimuli no seizure activity. Family met with hospice on 10/24/2021 Vitals/I&O Vitals/I&O: Vital Signs Date Time Temp Pulse Resp B/P (MAP) Pulse Ox O2 Delivery O2 Flow Rate FiO2 10/25/21 12:49 Nasal Cannula 10/25/21 07:00 100.4 93 20 136/67 (90) 93 2.0 100.4 I & O 10/24/21 10/24/21 10/25/21 15:00 23:00 07:00 Output Total 650 ml 25 ml Balance -650 ml -25 ml Physical Exam General: No acute distress Heart: Regular rate Lungs: Crackles Abdomen: Soft, No tenderness Extremities: No clubbing, No cyanosis, No edema, Normal pulses, No tenderness/swelling Skin: No rashes, No breakdown, Other (Extensive bruising to anterior chest wall) Comment Review of Relevant I have reviewed the following items ivania (where applicable) has been applied. Justifications for Admission Chest Pain Indications Respiratory Distress?: Yes Justification for admission: Patient's respiratory distress as indicated by (SOB/tachypnea/abnormal breathing pattern plus hypoxemia/AMS/other evidence of respiratory compromise such as pulmonary edema on chest x-ray) will need inpatient level of care. Serious Diagnosis?: Yes Justification for admission: Chest pain may be indicative of potentially serious diagnosis/diagnoses Please state condition(s) which will require inpatient level of care for further evaluation and management. Other Justification TERESA CASTRO MD Oct 25, 2021 13:31
[2021-10-25 19:00] VITALS: BP 159/68
[2021-10-26 03:00] VITALS: BP 148/61
[2021-10-26 07:00] VITALS: BP 152/46
[2021-10-26] MEDS: levETIRAcetam 500 MG in IV DEXTROSE 5% 100ML 100 ML IV SCH ×2 (09:51→23:31)
[2021-10-26] MEDS: FAMOTIDINE 20 MG/2 ML VIAL IVP SCH ×2 (09:51→23:31)
--- NOTE | 2021-10-26 16:40 | PDOC ---
GENERAL General: Patient examined chart reviewed patient has been here for over a month after a cardiac arrest at home secondary to third-degree heart block. His stay has been complicated by aspiration pneumonia and respiratory failure. He never regained consciousness. Patient's daughter and son are at bedside currently. They have spoken with the [facility] inpatient hospice correspondence representative. No authorization has been given yet for transfer there and the family tells me that they would rather not move him if possible. They understand that the patient's situation is terminal and wish that he have comfort care at this point. I explained to them that we are not a hospice floor but we can certainly augment his medications. His last dose of morphine was over 24 hours ago. It was not written for air hunger rather pain control. We will dose his morphine on a scheduled basis and hold if his respirations fall to under 10 a minute currently he is at about 35 to 40 breaths/min. We will reassess with the plan for inpatient hospice tomorrow. Time spent today is 30 minutes with greater than 50% in counseling and coordination of care most of which in discussion with patient's family regarding his goals of care and care plan Problems: (1) Respiratory arrest (2) Cardiac arrest (3) Terminal care VITAL SIGNS Vital Signs/I&O: Vital Signs Date Time Temp Pulse Resp B/P (MAP) Pulse Ox O2 Delivery O2 Flow Rate FiO2 10/26/21 08:00 Nasal Cannula 5.0 10/26/21 07:00 100.4 70 32 152/46 (81) 85 100.4 I & O 10/25/21 10/25/21 10/26/21 15:00 23:00 07:00 Output Total 375 ml 450 ml Balance -375 ml -450 ml Patient is laying in bed unresponsive with dry rapid shallow breathing son and daughter tell me that it has been this way for the last few days HEENT exam is notable for very dry mucous membranes Chest is notable for marked tachypnea bilateral equal air entry no crackles or wheezes are noted Heart S1-S2 normal regular rate and rhythm no murmurs or gallops are noted Abdomen soft nontender nondistended no masses organomegaly noted Extremity exam is supple for acute abnormality ALLERGIES Allergies: Allergies Coded Allergies Type Severity Reaction Last Updated Verified bee venom protein (honey bee) Allergy Severe 09/23/21 Yes aspirin Allergy Intermediate 09/22/21 Yes cholestyramine Allergy Intermediate 09/23/21 Yes hydrochlorothiazide Allergy Intermediate 09/23/21 Yes MEDS Medications: Current Medications Medications (Trade) Dose Ordered Sig/Subha Start Time Stop Time Status Last Admin Dose Admin Acetaminophen (Tylenol Supp) 650 mg PRN Q6HRS PRN 09/22/21 18:45 10/21/21 06:03 Acetaminophen (Tylenol) 650 mg PRN Q6HRS PRN 09/29/21 09:45 10/13/21 10:00 DC 09/30/21 20:52 Ampicillin Sodium/ Sulbactam Sodium 3 gm/Sodium Chloride 100 ml @ 200 mls/hr Q6HRS 09/28/21 18:00 10/06/21 08:56 DC 10/06/21 05:59 Atropine Sulfate (ATROPINE 0.5mg SYRINGE) 0.5 mg PRN Q5MIN PRN 09/22/21 18:00 Cancel Bisacodyl (Dulcolax Supp) 10 mg PRN DAILY PRN 09/22/21 18:45 Cefazolin Sodium (Ancef) 1 gm STK-MED ONCE 09/22/21 18:53 09/22/21 18:53 DC Dexamethasone Sodium Phosphate (Decadron) 4 mg 1X ONCE 10/18/21 18:00 10/18/21 18:01 DC 10/18/21 17:59 Dopamine HCl/ Dextrose 250 ml @ 28.05 mls/ hr CONT PRN 09/22/21 18:45 10/13/21 09:59 DC 09/23/21 08:44 Famotidine (Pepcid Vial) 20 mg BID 10/03/21 21:00 10/26/21 09:51 Fentanyl Citrate (Fentanyl 2ml Vial) 25 mcg PRN Q3HRS PRN 09/22/21 21:30 Cancel Furosemide (Lasix) 20 mg 1X ONCE 09/26/21 13:15 09/26/21 13:16 DC 09/26/21 13:15 Heparin Sodium (Porcine) (Heparin Sodium) 5,000 unit Q12HR 09/23/21 21:00 09/23/21 22:59 DC 09/23/21 20:45 Levetiracetam 500 mg/Dextrose 105 ml @ 420 mls/hr Q12HR 09/26/21 04:00 10/26/21 09:51 Lidocaine/ Epinephrine (LIDOCAINE 2%-EPI 1:100,000 multi-dose) 20 ml STK-MED ONCE 09/22/21 18:53 09/22/21 18:53 DC Lorazepam (Ativan Inj) 2 mg PRN Q1HR PRN 10/12/21 14:30 10/23/21 13:55 Midazolam HCl (Versed) 2 mg STK-MED ONCE 09/22/21 18:53 09/22/21 18:53 DC Morphine Sulfate (Morphine Sulfate) 4 mg PRN Q1HR PRN 10/20/21 13:30 10/24/21 13:25 Norepinephrine Bitartrate 8 mg/ Dextrose 258 ml @ 13.971 mls/ hr CONT PRN 09/23/21 11:45 10/13/21 09:59 DC 09/23/21 22:14 Ondansetron HCl (Zofran) 4 mg PRN Q4HRS PRN 09/22/21 18:45 Promethazine HCl (Phenergan Supp) 12.5 mg PRN Q6HRS PRN 09/22/21 18:45 Propofol 100 ml @ 2.244 mls/ hr CONT PRN 09/22/21 18:15 UNV Scopolamine (Transderm-Scop) 1 patch Q3DAYS 10/13/21 09:00 10/25/21 08:38 Sodium Chloride 500 ml @ 500 mls/hr 1X PRN PRN 09/22/21 18:00 10/25/21 05:50 ASSESSMENT & PLAN A&P Plan as noted above This note was created using [employer] and may have omissions and/or errors due to the nature of real-time voice freight traffic consultant. Justifications for Admission Chest Pain Indications Respiratory Distress?: Yes Justification for admission: Patient's respiratory distress as indicated by (SOB/tachypnea/abnormal breathing pattern plus hypoxemia/AMS/other evidence of respiratory compromise such as pulmonary edema on chest x-ray) will need inpatient level of care. Serious Diagnosis?: Yes Justification for admission: Chest pain may be indicative of potentially serious diagnosis/diagnoses Please state condition(s) which will require inpatient level of care for further evaluation and management. Other Justification Nutrition Consultation Dietary Evaluation: Recommendations by RD: Dietary education by RD Comments: REC continue TF: Vital AF @ 20 ml/hr increase 10 ml q 8 hr to a goal rate of 40 ml/hr flushes: 100 ml q 6 hr or per MD Expected Outcomes/Goals: comfort care Malnutrition Findings: Body Fat Depletion (Non Severe: Mild Depletion Weight Status: Underweight LEXI ARAUJO MD Oct 26, 2021 16:40
[2021-10-26] MEDS: MORPHINE SULFATE 2 MG/ML INJ. IVP SCH ×5 (17:58→23:00)
[2021-10-26 19:00] VITALS: BP 150/57
[2021-10-27] MEDS: MORPHINE SULFATE 2 MG/ML INJ. IVP SCH ×26 (00:01→23:00)
[2021-10-27 07:00] VITALS: BP 148/57
[2021-10-27] MEDS: levETIRAcetam 500 MG in IV DEXTROSE 5% 100ML 100 ML IV SCH ×2 (10:12→20:31)
[2021-10-27] MEDS: FAMOTIDINE 20 MG/2 ML VIAL IVP SCH ×2 (10:14→20:28)
--- NOTE | 2021-10-27 10:20 | NUR ---
PEDRO following. Discussed with RN, PEDRO spoke with Luciano (Nils) this morning. Nils met with family on Wednesday 10/24 (soonest family could meet), to have consents signed for inpatient hospice. Family reportedly refused to sign the consents unless they had a guarantee that the patient could remain at [facility] until he passes. Nils explained if pt is no longer meeting GIP he has to be moved to home or to a facility, or cannot receive hospice services in the hospital. Pt is also approved for hospice at [facility] per the [place]. [employer] notified. PEDRO will continue to follow.
[2021-10-27] MEDS: POLYVINYL ALCOHOL 1.4% OPHTH SOLUTION 15ML BOTTLE. OU PRN ×2 (10:56→12:04)
--- NOTE | 2021-10-27 13:06 | PDOC ---
[employer] PROGRESS NOTE Date of Service DOS: DATE: 10/27/21 TIME: 13:04 Chief Complaint Chief Complaint A/P: Acute hypoxic respiratory failure - likely due to aspiration pneumonia from vomiting likely from symptomatic 3rd degree heart block. Extubated and currently on comfort care/hospice PEA arrest - likely from above aspiration event, complicated by 3rd degree heart block. ROSC obtained Third degree heart block - s/p PPM generator change with apparent recovery of heart rate. Abnormal chest CT - likely due to due to pneumonia Nausea and vomiting - likely from CHB, treated for pneumonia, will rule out other infectious etiology. IV anti-emetics Fall - second fall in a week. If neurologic recovery occurs needs gait testing, though likely this was related to cardiac event Closed head injury - posterior scalp abrasion, local wound care. Monitor neurologic function. Anemia - will check iron studies, likely of chronic disease Thrombocytopenia - unclear etiology, will trend EDWIN - likely vasomotor nephropathy from arrest. Family does not know of any history of CKD, will order [facility] records Lactic acidosis - likely due to hypoxia, will trend Transaminitis - likely related to shock liver Elevated trop - demand ischemia from 3rd degree heart block, likely, will trend out. HTN - will add back home meds as BP allows HLD - statin when taking PO FEN - Comfort PPX - pepcid, lovenox CODE - DNR/DNI, comfort care Dispo - Med surg I have discussed with bryn Painting and Seng Felix about overall goals of care and they have requested to go inpatient hospice with [facility] History of Present Illness History of Present Illness Mr Cerda is an 86-year-old male with PMHx HTN, HLD s/p PPM who presented to [facility] in [place] via EMS after a PEA cardiac arrest. Per his son, he was at home and in the presence of son and son-in-law when he was observed actively choking and subsequently falling on the floor with significant amount of emesis that was nonbloody and nonbilious in nature. Son reports vomit with recently ingested food and laying his father on his side and cleaning out his mouth while son-in-law called EMS. On EMS arrival ~3 minutes later, patient was unresponsive and cyanotic and they intubated. En-route patient was found to be pulseless in PEA and appropriate ACLS measures were followed with application of Howard device for chest compressions, and per report had a total of x2 epinephrine administered via left tibial IO. After approximately 5 minutes ROSC was obtained. In ED was noted unresponsive with pinpoint pupils and GCS 3 with no purposeful movements. Per EMS report and son the patient takes Plavix, lisinopril, rosuvastatin and citalopram at home. He has a pacemaker per son, which was placed in [place] over 10 years ago, and the son says he follows at [facility], doesn't know about pacer follow up. Per son he fell 4 days prior and was seen for head abrasion at local [place], noted on his occiput. Family notes he has been more weak than usual over past 72 hours, no travel or sick contacts. Is fully vaccinated against COVID 19. EKG appeared with third-degree heart block at 42 bpm, left axis deviation, T wave inversion noted in lead I, III, V2-6, no STEMI Vitals obtained concerning for marked bradycardia and no respiratory effort Labs with WBC 9.1, Hb 11.4, platelets 128, ABG 7.2 /459 on 100% FiO2, rapid COVID-19 negative, NA 137, K4.2, BUN 50, CR 2, glucose 247, lactic acid 8.6, calcium 8.6, bilirubin 0.6, AST 131, ALT 157, alkaline phosphatase 90, ammonia 25, albumin 3, troponin 0.134, INR 1.1, urinalysis bland. CT head and neck with no acute abnormalities. CT chest with bibasilar infiltrates and NGT and ETT in good positioning. cardiac monitor concerning for third-degree heart block, with rate in the 20s, therefore 1 mg epinephrine administered with minimal improvement in HR, then 1 mg atropine without significant improvement, then dopamine gtt without sustained improvement. 3 L IV fluid administered and unasyn for aspiration pneumonitis. Ultimately was responsive to transcutaneous pacing and after discussion with madan gomez he was transferred to [facility] for further care. 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 Seen in ICU. Discussed with son bedside. 09/23: Afebrile, on vent with FiO2 50%, PEEP 5. Continue dopamine gtt. We will continue Unasyn for aspiration pneumonia. Chest x-ray showed suspected partially consolidated left lower lobe infiltrate superimposed on right lower and bilateral upper lobe multifocal interstitial infiltrate.. Critical care time 30 minutes spent reviewing charts, general labs, reviewing imaging, and discussion with RN. 09/24: Afebrile. On vent with FiO2 40%, PEEP 5. Remains on pressor support. Off dopamine. Will continue Unasyn for pneumonia. Continue to wean off vent. Critical care time 30 minutes spent reviewing charts, general labs, reviewing imaging, discussion with Dr. Mcdaniel. 09/25: Low-grade fever overnight, T-max 100.6 F. On vent with FiO2 35%, PEEP 5. Chest x-ray yesterday showed diffuse increased interstitial opacity likely due to interstitial infiltrate. Continue IV antibiotics. He has been off sedation for the past 24 hours. Platelets have steadily dropped; platelets 89 today. I discussion with daughter and son-in-law by phone about concerns for worsening bruising and, cytopenia. They are agreeable to no chest compressions, as to not cause any further damage that may lead to prolonged intubation. We will continue to wean off ventilator. 30 minutes critical care time spent reviewing charts, reviewing labs, reviewing imaging, discussion with RN, and discussion with Dr. Ortiz. 09/26: Afebrile. On vent with FiO2 35%, PEEP 5. Chest x-ray today showing stable diffuse interstitial infiltrate. Platelets [address] Brand was consulted yesterday; he is discussed with family the likely poor prognosis. Sister wants to fly in from [place] to see him. Family would like DNR but chemical code; son-in-law will discuss with the rest of family. Critical care time 30 minutes spent reviewing chart, reviewing labs, reviewing imaging, discussing with Dr. Ortiz. 09/27: Afebrile; on vent with FiO2 50%, PEEP 5. Off. For 72 hours. Some sp ontaneous movements noted this morning. I believe family is flying in from [place] to see him prior to making full DNR; chemical code. Critical care time 30 minutes spent reviewing charts, general labs, reviewing imaging, and discussion with RN. 09/28: Febrile overnight, T-max 102.0 F. 09/29: Patient evaluated examined at bedside. Remains off sedation. But still pretty unresponsive. Absent brainstem reflexes. Will attempt to contact family today to see if they are in fact coming in from [place]. Still on Levophed and dopamine. 09/30: Patient evaluated and examined at bedside. Still off sedation and unresponsive. Still on Levophed for blood pressure support. Family supposed to arrive today for discussion of ongoing care. 10/01: Patient evaluated and examined at bedside. Still intubated and unresponsive. Requiring pressors. Talk to patient's son on phone today for 15 minutes discussing advanced care planning. He reported that she has not been able to discuss ongoing care with his sister as she works in the afternoons and he works in the evenings. Provided clinical updates to him told him about no real improvement at this point. Still remains on high ventilator settings. 10/02: Patient evaluated examined at bedside. Still intubated minimally responsi ve even without sedation. Waiting for son to arrive at bedside for care discussion. Otherwise continuing current plans. I spent 35 minutes critical care time reviewing charts labs imaging and discussion with subspecialist and nursing team. 10/03: Patient evaluated examined at bedside. I discussed with the family yesterday for approximately 35 minutes ongoing care plans. During that time patient did have some extremity movement along with some head movement showing discomfort from the ventilator. With this family would like to continue care for now. I spoke with them again at bedside today and that they would like to continue on until at least tomorrow evening. Still think very poor prognosis. However will honor family wishes. Plan of care discussed with bedside RN. I spent 35 minutes critical care time reviewing charts labs imaging and discussion with specialists and nursing team 10/04: Patient evaluated at bedside. Still with some movements in his extremities. Still intubated minimally responsive despite being off sedation for over a week. Continue discussion of goals with family. 35 minutes critical care time. 10/05: Patient evaluated examined at bedside. Hyponatremic this morning on review does appear his sodium has been creeping up. We will increase free water flushes. Family continues discussing goals of care. Here to provide them any information needed. 33 minutes critical care time 10/06: Overnight no events. NA 149, K3.4, Hb 9.5. No meaningful movement off sedation over a week. 10/07: Overnight afebrile. Withdraws from pain requiring great toe reflex is breathing over the ventilator. Brainstem reflexes intact seems to be anoxic brain injury. discussed with family over the phone the asked for an additional week. I encouraged consideration of comfort care offered tracheostomy and PEG a do not want surgical interventions at this time 10/08: NA 142 today. On vent 35% FiO2 PEEP of 5 O2 saturations 100%. Has doll's eyes no meaningful movement does withdraw from painful stimuli. Babinski bila terally. Afebrile 10/09: Afebrile overnight. On vent 35% FiO2 PEEP 5 with O2 saturations 96%. Still with no movement today withdrawal from painful stimuli Babinski bilaterally. Meeting at [address] Price from pulmonology, plan to withdraw care on 10/12/2021 when daughter arrives 10/10: T-max 100.1 F overnight. On vent 35% FiO2 PEEP 5, O2 saturations 96%. Still with no purposeful movement withdraws from painful stimuli bilateral Babinski 10/11: No acute events overnight. Patient seen and examined bedside. Current vent settings of 12/500/35/5. Patient remains on dopamine for pressors and not on any sedatives. No purposeful movements upon sternal rub. Patient's chart, labs, images were reviewed and discussed with RN 10/12: Patient seen and examined bedside. No acute events overnight. Patient extubated this afternoon and appears comfortable. Maintaining his own without any pain. No pressors at this time. Patient's chart, labs, images were reviewed and discussed with RN. 10/14: No acute events overnight. Patient seen and examined bedside. No respiratory distress and appears comfortable. Minimal secretions. Would not r ecommend PEG tube placement for TPN. Patient may participate with pleasure feedings with assistance if able to wake up and intake food. Family does not want the patient to starve. Pending family discussion for patient pleasure feeding and possibly home hospice. Patient's chart, labs, images were reviewed and discussed with RN 10/15: No acute events overnight. Patient seen and examined bedside appears comfortable. No respiratory distress or copious secretions. Apparently, family does want a PEG tube placed. We will plan on home with hospice after PEG tube is in place. GI consulted. 10/16: No acute events overnight. Patient appears comfortable at bedside. Waiting for family meeting for discussion of futility of nutrition or any further aggressive procedures. Patient's chart, labs, images were reviewed and discussed with RN 10/17: Patient appears comfortable still on IV Keppra. No agonal respirations or copious secretions. Family will proceed with aggressive procedures. Social work working with family for for possible healthcare resort with hospice. Please see social work's notes for details. 10/18: No acute events overnight. Patient appears comfortable. IV started today to continue with IV Keppra. Patient's chart, labs, images were reviewed a nd discussed with RN 10/19: No acute events overnight. Patient is comfortable in bed. No dyspnea or agitation or hallucination. Patient's chart, labs, images were reviewed and discussed with RN 10/20: No acute events overnight. Patient seen and examined bedside. Respiratory rate in the 20s. Having some agonal breathing. Discussed with nurse and given morphine. Patient's chart, labs, images were reviewed and discussed with RN 10/21: Patient seen and examined bedside. Patient resting comfortably. Re spiratory rate improved to about 12-14. No secretions. No agitation. Patient's chart, labs, images were reviewed and discussed with RN 10/22: Seen and examined bedside. Has basic brainstem reflexes but nothing more. No meaningful responses. No seizure activity. Awaiting inpatient hospice approval discussed with family 10/23: Seen and examined bedside still with basic brainstem reflexes but no more. No meaningful response no seizure activity. Afebrile. Awaiting inpatient hospice 10/24: Febrile 100.5 F overnight remitted with acetaminophen rectal. No meaningful response to stimuli and seizure activity. Awaiting inpatient hospice evaluation today with family and hospice investment representative 10/25: T-max 100.4 F this morning remitted with acetaminophen. Still no meaningful response to stimuli no seizure activity. Family met with hospice on 10/24/202110/26: respirations into the 30s, morphine frequency increased for air hunger. 10/27: Respirations 26/min, morphine increased hourly. No meaningful response to stimuli no seizure activity. Patient's family concerned that he cannot manage him with home hospice care given the frequency of morphine for air hunger Vitals/I&O Vitals/I&O: Vital Signs Date Time Temp Pulse Resp B/P (MAP) Pulse Ox O2 Delivery O2 Flow Rate FiO2 10/27/21 12:02 26 Nasal Cannula 4.0 10/27/21 12:01 89 10/27/21 07:00 98.5 65 148/57 (87) 98.5 I & O 10/26/21 10/26/21 10/27/21 15:00 23:00 07:00 Intake Total 0 ml Output Total 125 ml Balance -125 ml Physical Exam General: No acute distress Heart: Regular rate Lungs: Crackles Abdomen: Soft, No tenderness Extremities: No clubbing, No cyanosis, No edema, Normal pulses, No tende rness/swelling Skin: No rashes, No breakdown, Other (Extensive bruising to anterior chest wall) Comment Review of Relevant I have reviewed the following items ivania (where applicable) has been applied. Medications: Current Medications Medications (Trade) Dose Ordered Sig/Subha Route PRN Reason Start Time Stop Time Status Last Admin Dose Admin Morphine Sulfate (Morphine Sulfate) 2 mg Q1HR IVP 10/26/21 17:00 10/27/21 12:02 Glycerin/ Hypromellose/ Polyethylene (Artificial Tears) 1 drop PRN Q15MIN PRN OU DRY EYE 10/27/21 10:30 10/27/21 12:04 Justifications for Admission Chest Pain Indications Respiratory Distress?: Yes Justification for admission: Patient's respiratory distress as indicated by (SOB/tachypnea/abnormal breathing pattern plus hypoxemia/AMS/other evidence of respiratory compromise such as pulmonary edema on chest x-ray) will need inpatient level of care. Serious Diagnosis?: Yes Justification for admission: Chest pain may be indicative of potentially serious diagnosis/diagnoses Please state condition(s) which will require inpatient level of care for further evaluation and management. Other Justification TERESA CASTRO MD Oct 27, 2021 13:06
[2021-10-27 19:00] VITALS: BP 95/33
--- NOTE | 2021-10-27 20:33 | NUR ---
Patient's daughter Garima and son Seng per phone stated they don't want Morphine every hour as ordered. They want it given as per nursing judgement for discomfort/ SOB.
--- NOTE | 2021-10-27 20:50 | NUR ---
Patient's daughter called transportation mechanic light for assistance. Patient found with no response to verbal or tactile stimuli; no breath sounds , respiratory chest movement or apical heartbeat for one minute; no gag reflux; and no pupillary response to light. These findings verified with Kia Caldwell RN. Daughter informed of her father's passing.
--- NOTE | 2021-10-27 21:00 | NUR ---
Patient's daughter called her brother to come to hospital to say good byes. Security notified that family would be coming to hospital. Patient's daughter informed to have visitors come to ED entrance.
--- NOTE | 2021-10-27 21:10 | NUR ---
Dr. Lowry and field service supervisor(Amara Muhammad RN) notified about Patient passing by Kia العلي.
--- NOTE | 2021-10-27 22:55 | NUR ---
Billing Associate notified that family getting phone numbers of transporters and home.
--- NOTE | 2021-10-27 23:47 | NUR ---
Security notified for morgue cart post cleaning, tagging and bagging patient .
--- NOTE | 2021-10-28 00:15 | NUR ---
Patient taken to [facility] [place] not[place].
--- NOTE | 2021-10-28 15:16 | PDOC3 ---
Discharge Summary Visit Information Date of Admission: Sep 22, 2021 Date of Discharge: Oct 27, 2021 Admitting Diagnosis: Complete heart block, hypoxic respiratory failure Brief Hospital Course Allergies Allergies Coded Allergies Type Severity Reaction Last Updated Verified bee venom protein (honey bee) Allergy Severe 09/23/21 Yes aspirin Allergy Intermediate 09/22/21 Yes cholestyramine Allergy Intermediate 09/23/21 Yes hydrochlorothiazide Allergy Intermediate 09/23/21 Yes Vital Signs Vital Signs Date Time Temp Pulse Resp B/P (MAP) Pulse Ox O2 Delivery O2 Flow Rate FiO2 10/27/21 20:26 Nasal Cannula 4.0 10/27/21 20:26 89 10/27/21 20: 28 10/27/21 19:00 97.5 88 95/33 (53) 97.5 Brief Hospital Course Mr Cerda is an 86-year-old male with PMHx HTN, HLD s/p PPM who presented to [place] [facility] in [place] via EMS after a PEA cardiac arrest. Per his son, he was at home and in the presence of son and son-in-law when he was observed actively choking and subsequently falling on the floor with s ignificant amount of emesis that was nonbloody and nonbilious in nature. Son reports vomit with recently ingested food and laying his father on his side and cleaning out his mouth while son-in-law called EMS. On EMS arrival ~3 minutes later, patient was unresponsive and cyanotic and they intubated. En-route patient was found to be pulseless in PEA and appropriate ACLS measures were followed with application of Howard device for chest compressions, and per report had a total of x2 epinephrine administered via left tibial IO. After approximately 5 minutes ROSC was obtained. In ED was noted unresponsive with pinpoint pupils and GCS 3 with no purposeful movements. Per EMS report and son the patient takes Plavix, lisinopril, rosuvastatin and citalopram at home. He has a pacemaker per son, which was placed in [place] over 10 years ago, and the son says he follows at [facility], doesn't know about pacer follow up. Per son he fell 4 days prior and [facility] noted [facility] his [facility]iput. Family notes he has been more weak than usual over past 72 hours, no travel or sick contacts. Is fully vaccinated against COVID 19. EKG appeared with third-degree heart block at 42 bpm, left axis deviation, T wave inversion noted in lead I, III, V2-6, no STEMI Vitals obtained concerning for marked bradycardia and no respiratory effort Labs with WBC 9.1, Hb 11.4, platelets 128, ABG 7.2 7/42/459 on 100% FiO2, rapid COVID-19 negative, NA 137, K4.2, BUN 50, CR 2, glucose 247, lactic acid 8.6, calcium 8.6, bilirubin 0.6, AST 131, ALT 157, alkaline phosphatase 90, ammonia 25, albumin 3, troponin 0.134, INR 1.1, urinalysis bland. CT head and neck with no acute abnormalities. CT chest with bibasilar infiltrates and NGT and ETT in good positioning. monitoring manager concerning for third-degree heart block, with rate in the 20s, therefore 1 mg epinephrine administered with minimal improvement in HR, then 1 mg atropine without significant improvement, then dopamine gtt without sustained improvement. 3 L IV fluid administered and unasyn for aspiration pneumonitis. Ultimately was responsive to transcutaneous pacing and after discussion with cardiology he was transferred to [facility] for further care. To can labeler prior to my assessment, had pacemaker generator replaced emergently. Seen in ICU. Discussed with son bedside. 09/23: Afebrile, on vent with FiO2 50%, PEEP 5. Continue dopamine gtt. We will continue Unasyn for aspiration pneumonia. Chest x-ray showed suspected partially consolidated left lower lobe infiltrate superimposed on right lower and bilateral upper lobe multifocal interstitial infiltrate.. Critical care time 30 minutes spent reviewing charts, general labs, reviewing imaging, and discussion with RN. 09/24: Afebrile. On vent with FiO2 40%, PEEP 5. Remains on pressor support. Off dopamine. Will continue Unasyn for pneumonia. Continue to wean off vent. Critical care time 30 minutes spent reviewing charts, general labs, reviewing imaging, discussion with Dr. Mcdaniel. 09/25: Low-grade fever overnight, T-max 100.6 F. On vent with FiO2 35%, PEEP 5. Chest x-ray yesterday showed diffuse increased interstitial opacity likely due to interstitial infiltrate. Continue IV antibiotics. He has been off sedation for the past 24 hours. Platelets have steadily dropped; platelets 89 today. I discussion with daughter and son-in-law by phone about concerns for worsening bruising and, cytopenia. They are agreeable to no chest compressions, as to not cause any further damage that may lead to prolonged intubation. We will continue to wean off ventilator. 30 minutes critical care time spent reviewing charts, reviewing labs, reviewing imaging, discussion with RN, and discussion with Dr. Ortiz. 09/26: Afebrile. On vent with FiO2 35%, PEEP 5. Chest x-ray today showing stable diffuse interstitial infiltrate. Platelets [address] Brand was consulted yesterday; he is discussed with family the likely poor prognosis. Sister wants to fly in from [place] to see him. Family would like DNR but chemical code; son-in-law will discuss with the rest of family. Critical care time 30 minutes spent reviewing chart, reviewing labs, reviewing imaging, discussing with Dr. Ortiz. 09/27: Afebrile; on vent with FiO2 50%, PEEP 5. Off. For 72 hours. Some spontaneous movements noted this morning. I believe family is flying in from [place] to see him prior to making full DNR; chemical code. Critical care time 30 minutes spent reviewing charts, general labs, reviewing imaging, and discussion with RN. 09/28: Febrile overnight, T-max 102.0 F. 09/29: Patient evaluated examined at bedside. Remains off sedation. But still pretty unresponsive. Absent brainstem reflexes. Will attempt to contact family today to see if they are in fact coming in from [place]. Still on Levophed and dopamine. 09/30: Patient evaluated and examined at bedside. Still off sedation and unresponsive. Still on Levophed for blood pressure support. Family supposed to arrive today for discussion of ongoing care. 10/01: Patient evaluated and examined at bedside. Still intubated and unresponsive. Requiring pressors. Talk to patient's son on phone today for 15 minutes discussing advanced care planning. He reported that she has not been able to discuss ongoing care with his sister as she works in the afternoons and he works in the evenings. Provided clinical updates to him told him about no real improvement at this point. Still remains on high ventilator settings. 10/02: Patient evaluated examined at bedside. Still intubated minimally responsive even without sedation. Waiting for son to arrive at bedside for care discussion. Otherwise continuing current plans. I spent 35 minutes critical care time reviewing charts labs imaging and discussion with subspecialist and nursing team. 10/03: Patient evaluated examined at bedside. I discussed with the family yesterday for approximately 35 minutes ongoing care plans. During that time tor gutierrez did have some extremity movement along with some head movement showing discomfort from the ventilator. With this family would like to continue care for now. I spoke with them again at bedside today and that they would like to continue on until at least tomorrow evening. Still think very poor prognosis. However will honor family wishes. Plan of care discussed with bedside RN. I spent 35 minutes critical care time reviewing charts labs imaging and discussion with specialists and nursing team 10/04: Patient evaluated at bedside. Still with some movements in his extremities. Still intubated minimally responsive despite being off sedation for over a week. Continue discussion of goals with family. 35 minutes critical care time. 10/05: Patient evaluated examined at bedside. Hyponatremic this morning on review does appear his sodium has been creeping up. We will increase free water flushes. Family continues discussing goals of care. Here to provide them any information needed. 33 minutes critical care time 10/06: Overnight no events. NA 149, K3.4, Hb 9.5. No meaningful movement off sedation over a week. 10/07: Overnight afebrile. Withdraws from pain requiring great toe reflex is breathing over the ventilator. Brainstem reflexes intact seems to be anoxic brain injury. discussed with family over the phone the asked for an additional week. I encouraged consideration of comfort care offered tracheostomy and PEG a do not want surgical interventions at this time 10/08: NA 142 today. On vent 35% FiO2 PEEP of 5 O2 saturations 100%. Has doll's eyes no meaningful movement does withdraw from painful stimuli. Babinski bilaterally. Afebrile 10/09: Afebrile overnight. On vent 35% FiO2 PEEP 5 with O2 saturations 96%. Still with no movement today withdrawal from painful stimuli Babinski bilaterally. Meeting at [address] Price from pulmonology, plan to withdraw care on 10/12/2021 when daughter arrives 10/10: T-max 100.1 F overnight. On vent 35% FiO2 PEEP 5, O2 saturations 96%. Still with no purposeful movement withdraws from painful stimuli bilateral Babinski 10/11: No acute events overnight. Patient seen and examined bedside. Current vent settings of 12/500/35/5. Patient remains on dopamine for pressors and not on any sedatives. No purposeful movements upon sternal rub. Patient's chart, labs, images were reviewed and discussed with RN 10/12: Patient seen and examined bedside. No acute events overnight. Patient extubated this afternoon and appears comfortable. Maintaining his own without any pain. No pressors at this time. Patient's chart, labs, images were reviewed and discussed with RN. 10/14: No acute events overnight. Patient seen and examined bedside. No respiratory distress and appears comfortable. Minimal secretions. Would not recommend PEG tube placement for TPN. Patient may participate with pleasure feedings with assistance if able to wake up and intake food. Family does not want the patient to starve. Pending family discussion for patient pleasure feeding and possibly home hospice. Patient's chart, labs, images were reviewed and discussed with RN 10/15: No acute events overnight. Patient seen and examined bedside appears comfortable. No respiratory distress or copious secretions. Apparently, family does want a PEG tube placed. We will plan on home with hospice after PEG tube is in place. GI consulted. 10/16: No acute events overnight. Patient appears comfortable at bedside. Waiting for family meeting for discussion of futility of nutrition or any further aggressive procedures. Patient's chart, labs, images were reviewed and discussed with RN 10/17: Patient appears comfortable still on IV Keppra. No agonal respirations or copious secretions. Family will proceed with aggressive procedures. Social work working with family for for possible healthcare resort with hospice. Please see social work's notes for details. 10/18: No acute events overnight. Patient appears comfortable. IV started today to continue with IV Keppra. Patient's chart, labs, images were reviewed and discussed with RN 10/19: No acute events overnight. Patient is comfortable in bed. No dyspnea or agitation or hallucination. Patient's chart, labs, images were reviewed and discussed with RN 10/20: No acute events overnight. Patient seen and examined bedside. R espiratory rate in the 20s. Having some agonal breathing. Discussed with nurse and given morphine. Patient's chart, labs, images were reviewed and discussed with RN 10/21: Patient seen and examined bedside. Patient resting comfortably. Respiratory rate improved to about 12-14. No secretions. No agitation. Patient's chart, labs, images were reviewed and discussed with RN 10/22: Seen and examined bedside. Has basic brainstem reflexes but nothing more. No meaningful responses. No seizure activity. Awaiting inpatient hospice approval discussed with family 10/23: Seen and examined bedside still with basic brainstem reflexes but no more. No meaningful response no seizure activity. Afebrile. Awaiting inpatient hospice 10/24: Febrile 100.5 F overnight remitted with acetaminophen rectal. No meaningful response to stimuli and seizure activity. Awaiting inpatient hospice evaluation today with family and hospice payable representative 10/25: T-max 100.4 F this morning remitted with acetaminophen. Still no meani ngful response to stimuli no seizure activity. Family met with hospice on 10/24/202110/26: respirations into the 30s, morphine frequency increased for air hunger. 10/27: Respirations 26/min, morphine increased hourly. No meaningful response to stimuli no seizure activity. Patient's family concerned that he cannot manage him with home hospice care given the frequency of morphine for air hunger Throughout the day patient developed agonal breathing and was noted with no spontaneous respirations or cardiac activity for time of 2049 on 10/27/2021 Consults: Neurology, cardiology, GI, and pulmonology Problem list: Acute hypoxic respiratory failure - likely due to aspiration pneumonia from vomiting likely from symptomatic 3rd degree heart block. Extubated 10/12 for comfort measures PEA arrest - likely from above aspiration event, complicated by 3rd degree heart block. ROSC obtained Third degree heart block - s/p PPM generator change with apparent recovery of heart rate. Abnormal chest CT - likely due to due to pneumonia Nausea and vomiting - likely from CHB, treated for pneumonia Fall Closed head injury - posterior scalp abrasion Anemia - will check iron studies, likely of chronic disease Thrombocytopenia EDWIN - likely vasomotor nephropathy from arrest. Lactic acidosis - likely due to hypoxia Transaminitis - likely related to shock liver Elevated trop - demand ischemia from 3rd degree heart block HTN HLD Greater than 30 minutes spent in care on day of patient expiration Discharge Information Condition at Discharge: / Disposition/Orders: Scheduled Amlodipine Besylate (Amlodipine Besylate) 5 Mg Tablet, 5 MG PO DAILY for HTN, (Reported) Entered as Reported by: ULICES WINCHESTER on 09/23/21527 Last Action: New Order on 09/23/21527 by ULICES WINCHESTER Atenolol (Atenolol) 25 Mg Tablet, 1 TAB PO DAILY for HTN, #30 Ref 5 (Reported) Entered as Reported by: ULICES WINCHESTER on 09/23/21527 Last Action: New Order on 09/23/21527 by ULICES Safend Carboxymethylcellulose Sodium (Thera Tears) 15 Ml Drops, 1 DROP EACHEYE QID for dryness, #30 Ref 0 (Reported) Entered as Reported by: ULICES WINCHESTER on 09/23/21527 Last Action: New Order on 09/23/21527 by ULICES Safend Cholecalciferol (Vitamin D3) (Vitamin D3 ) 25 Mcg Tablet, 25 MCG PO DAILY for SUPPLEMENT, (Reported) 1,000 UNITS = 25 MCG Entered as Reported by: ULICES WINCHESTER on 09/23/21527 Last Action: New Order on 09/23/21527 by ULICES Safend Citalopram Hydrobromide (Celexa) 40 Mg Tablet, 1 TAB PO DAILY for depression, #30 Ref 1 (Reported) Entered as Reported by: ULICES WINCHESTER on 09/23/21527 Last Action: New Order on 09/23/21527 by ULICES Safend Clopidogrel Bisulfate (Clopidogrel) 75 Mg Tablet, 75 MG PO DAILY for TO PREVENT BLOOD CLOTS, #30 Ref 0 (Reported) Entered as Reported by: ULICES WINCHESTER on 09/23/21527 Last Action: New Order on 09/23/21527 by ULICES Safend Donepezil Hcl (Donepezil Hcl) 10 Mg Tablet, 1 TAB PO DAILY for memory, #90 Ref 1 (Reported) Entered as Reported by: ULICES WINCHESTER on 09/23/21527 Last Action: New Order on 09/23/21527 by ULICES Safend Ezetimibe (Zetia) 10 Mg Tablet, 1 TAB PO DAILY for cholesterol for 30 Days, #30 Ref 0 (Reported) Entered as Reported by: ULICES Safend on 09/23/21527 Last Action: New Order on 09/23/21527 by ULICES Safend Isosorbide Mononitrate (Isosorbide Mononitrate Er) 60 Mg Tab.er.24h, 1 TAB PO DAILY for heart, #30 Ref 5 (Reported) Entered as Reported by: ULICES Safend on 09/23/21527 Last Action: New Order on 09/23/21527 by ULICES WINCHESTER Ketoconazole (Xolegel) 45 Gm Gel..gram., 1 JUAN TP BID for infection for 30 Days, #45 Ref 0 (Reported) Entered as Reported by: ULICES WINCHESTER on 09/23/21527 Last Action: New Order on 09/23/21527 by ULICES WINCHESTER Levothyroxine Sodium (Levothyroxine Sodium) 50 Mcg Tablet, 1 TAB PO DAILY for thyroid, #30 Ref 5 (Reported) Entered as Reported by: ULICES WINCHESTER on 09/23/21527 Last Action: New Order on 09/23/21527 by ULICES WINCHESTER Lisinopril (Lisinopril) 40 Mg Tablet, 0.5 TAB PO DAILY for HTN, #30 Ref 5 (Reported) Entered as Reported by: ULICES WINCHESTER on 09/23/21527 Last Action: New Order on 09/23/21527 by ULICESEzakus Memantine Hcl (Namenda) 10 Mg Tablet, 1 TAB PO BID for mental health, #180 Ref 1 (Reported) Entered as Reported by: ULICES WINCHESTER on 09/23/21527 Last Action: New Order on 09/23/21527 by ULICESEzakus Pantoprazole Sodium (Pantoprazole Sodium ) 40 Mg Tablet.dr, 40 MG PO DAILYAC for GERD, (Reported) Entered as Reported by: ULICES WINCHESTER on 09/23/21527 Last Action: New Order on 09/23/21527 by ULICESEzakus Rosuvastatin Calcium (Crestor) 40 Mg Tablet, 1 TAB PO DAILY for cholesterol, #30 Ref 5 (Reported) Entered as Reported by: ULICES WINCHESTER on 09/23/21527 Last Action: New Order on 09/23/21527 by ULICESEzakus Urea (Urea) 227 Gm Cream..g., 1 JUAN TP DAILY for skin for 30 Days, #227 Ref 0 (Reported) Entered as Reported by: ULICES WINCHESTER on 09/23/21527 Last Taken: UNKNOWN on Unknown Date & Time Last Action: New Order on 08/30 by ULICES RANULFO Scheduled PRN Mineral Oil/Hydrophil Petrolat (Hydrophor Ointment) 454 Gm Oint...g., 454 GM TP PRN PRN for SKIN CLEANSING, (Reported) Entered as Reported by: ULICES WINCHESTER on 09/23/21527 Last Action: New Order on 09/23/21527 by ULICES WINCHESTER Justicifation of Admission Dx: Justifications for Admission: Justification of Admission Dx: N/A TERESA CASTRO MD Oct 28, 2021 15:16
== END 2021-10-27 20:50 | DRG 242 ==
LOC: 1 WEST ICU 17:40 → 4 NORTH 10-17 12:08
PROVIDERS: ADMIT Internal Medicine; ATTEND Internal Medicine
PROC: 0JPT0MZ Removal of Stimulator Generator from Trunk Subcutaneous Tissue and Fascia, Open Approach (ICD-10-PCS; 2020-09-22)
PROC: 5A1955Z Respiratory Ventilation, Greater than 96 Consecutive Hours (ICD-10-PCS; principal; 2021-09-22)
PROC: 0JH606Z Insertion of Pacemaker, Dual Chamber into Chest Subcutaneous Tissue and Fascia, Open Approach (ICD-10-PCS; 2021-09-22)
PROC: 02H63JZ Insertion of Pacemaker Lead into Right Atrium, Percutaneous Approach (ICD-10-PCS; 2021-09-22)
PROC: 02HK3JZ Insertion of Pacemaker Lead into Right Ventricle, Percutaneous Approach (ICD-10-PCS; 2021-09-22)
PROC: 0JPT0PZ Removal of Cardiac Rhythm Related Device from Trunk Subcutaneous Tissue and Fascia, Open Approach (ICD-10-PCS; 2021-09-22)
DX: T82.119A Breakdown (mechanical) of unspecified cardiac electronic device, initial encounter (principal); J69.0 Pneumonitis due to inhalation of food and vomit; J96.01 Acute respiratory failure with hypoxia; E43 Unspecified severe protein-calorie malnutrition; I21.A1 Myocardial infarction type 2; K72.00 Acute and subacute hepatic failure without coma; N17.0 Acute kidney failure with tubular necrosis; E87.0 Hyperosmolality and hypernatremia; E87.1 Hypo-osmolality and hyponatremia; E87.4 Mixed disorder of acid-base balance; G93.1 Anoxic brain damage, not elsewhere classified; I42.9 Cardiomyopathy, unspecified; I44.2 Atrioventricular block, complete; I97.711 Intraoperative cardiac arrest during other surgery; J98.11 Atelectasis; D69.6 Thrombocytopenia, unspecified; E78.5 Hyperlipidemia, unspecified; E87.6 Hypokalemia; F32.A Depression, unspecified; I10 Essential (primary) hypertension; I25.10 Atherosclerotic heart disease of native coronary artery without angina pectoris; I46.9 Cardiac arrest, cause unspecified; K21.9 Gastro-esophageal reflux disease without esophagitis; K80.20 Calculus of gallbladder without cholecystitis without obstruction; N20.0 Calculus of kidney; R57.0 Cardiogenic shock; S00.01XA Abrasion of scalp, initial encounter; T73.0XXA Starvation, initial encounter; X58.XXXA Exposure to other specified factors, initial encounter; Y71.2 Prosthetic and other implants, materials and accessory cardiovascular devices associated with adverse incidents; Z51.5 Encounter for palliative care; Z66 Do not resuscitate; Z79.02 Long term (current) use of antithrombotics/antiplatelets; Z79.899 Other long term (current) drug therapy; Z82.49 Family history of ischemic heart disease and other diseases of the circulatory system; Z95.0 Presence of cardiac pacemaker; Z20.822 Contact with and (suspected) exposure to COVID-19
CPT/HCPCS: 33228; 36415; 36600; 71045; 80048; 80053; 80061; 82805; 82962; 83605; 83735; 84443; 84484; 85007; 85025; 87426; 93306; 94002; 94003; C1785; J0295; J0690; J1100; J1265; J1644; J1940; J1953; J2060; J2250; J2270; J2704; J3010; J3490; J7040; J7060; U0003; U0005; G0378